=== PATIENT | female | born 1955 | race Caucasian/White ===

== ENCOUNTER → 2016-06-16 | Outpatient (CLI) | payer MEDICAID ==
[~2016-06-16] MED LIST: ACHD5005 PO; ACYC800T57 PO; AMOX500C2 PO; ANTI15DR4 LEFT EAR; ASP325T PO; ASP81TEC PO; ASPI-86 PO; ATEN50TA PO; ATOR40TA70 PO; BUTE12CR TP; CHOL500049 PO; CLOB15CR2 TOP; CLOP75TA28 PO; CLOT15CR4 TP; CLPD75T PO; CYAN25005 SL; CYAN50TA3 PO; CYCL10TA9 PO; DICY20TA57 PO; DIPH1TAB45 PO; FAMO-119 PO; FAMO20TA5 PO; FENO134C PO; FENO135C PO; FENO145T2 PO; HCT25T; HCT25T PO; HYDR12.570 PO; HYDR1TAB PO; HYDR25TA4 PO; ISM30TCR PO; ISOS60TA3 PO; LD5PT TOP; LEVO500T69 PO; LEVO75TA58 PO; LISI10TA2 PO; LISI20TA PO; LISI40TA PO; LVT.05T; MECL-106 PO; MECL-124 PO; METF-141 PO; METH4TAB PO; METO-333 PO; METO25TA PO; MOME15CR17 TP; MTF500T PO; NAPR-243 PO; NITR-65 PO; OMEG1CAP51 PO; ONDA-42 SL; ONDAN4ODT PO; OXYC-12 PO; PERM60CR4 TP; POTA10CA43 PO; POTA10TA14 PO; PRAS10TA6 PO; PRD20T PO; PRED10TA PO; PRED20TA PO; PREG75CA PO; PRM25T PO; ROSU10TA12 PO; ROSU20TA14 PO; ROSU20TA28 PO; SULF-222 PO; SULF1TAB38 PO; TR1C15 TOP; TRAM-21 PO; TRAM50TA2 PO; TRM50T PO; blue goo TOP
--- OUTSIDE RECORDS SUMMARY | 2016-06-16 12:10 | XMS REPORT | Continuity of Care Document ---
Author Author [facility] Organization [facility] Address Unknown Phone Unavailable Care Team Providers Care Dispute Resolution Analyst Name Role Phone DANIELLA GONZALEZ DO PCP Insurance Providers Payer Name Policy Number Subscriber Name Relationship [facility] [id number] Pricilla Barth 16 Self / Same As Patient Advance Directives Directive Response Recorded Date/Time Advance Directives No 03/07/16 6:56pm Health Care Power of Buckle Coverer No 03/07/16 6:56pm Organ Donor No 03/07/16 6:56pm Resuscitation Status Full Code 03/07/16 6:56pm Chief Complaint and Reason for Visit Chief Complaint General Problems/Pain Reason for Visit Dizziness Dermatitis Problems Active Problems Medical Problem Onset Date Status Acute exacerbation of chronic low back pain Unknown Acute Acute exacerbation of chronic low back pain Unknown Acute Acute gastroenteritis Unknown Acute Acute renal insufficiency Unknown Acute Allergic drug reaction Unknown Acute Contusion of foot Unknown Acute Contusion of right foot including toes Unknown Acute Contusion of right hand Unknown Acute Dermatitis Unknown Acute Diarrhea Unknown Acute Dizziness Unknown Acute Dizziness Unknown Acute Eczema Unknown Acute Fall on same level from slipping, tripping or stumbling Unknown Acute Heart murmur Unknown Acute Knee contusion Unknown Acute Laceration of finger Unknown Acute Musculoskeletal pain Unknown Acute Nausea and vomiting Unknown Acute Nausea and vomiting Unknown Acute Post herpetic neuralgia Unknown Acute Post herpetic neuralgia Unknown Acute Rash Unknown Acute Shingles Unknown Acute Symptomatic sinus bradycardia Unknown Acute Symptomatic sinus bradycardia Unknown Acute Symptomatic sinus bradycardia Unknown Acute Thyroid dysfunction Unknown Acute Tinea corporis Unknown Acute Urinary tract infection Unknown Acute Vertigo Unknown Acute Volume depletion Unknown Acute Medications Current Home Medications Medication Dose Units Route Directions Days/Qty Instructions Start Date Levothyroxine Sodium 75 Mcg 75 Mcg Oral Daily 06/10/10 Potassium Chloride 10 Meq 10 Meq Oral Daily 09/09/10 Hydrochlorothiazide 25 Mg 12.5 Mg Oral Daily TAKES 1/2 (25MG) TABLET DAILY 05/19/12 Metformin Hcl (Glucophage) 500 Mg 500 Mg Oral Daily 03/09/13 Isosorbide Mononitrate 60 Mg 60 Mg Oral Daily 03/09/13 [place]-3 Fatty Acids/Fish Oil 1 Each 1,000 Mg Oral Twice A Day Lisinopril 40 Mg 10 Mg Oral Daily 09/09/13 Clopidogrel Bisulfate 75 Mg 75 Mg Oral Daily 30 Days 09/10/13 Aspirin 325 Mg 325 Mg Oral Daily 12/02/13 Metoprolol Succinate 25 Mg 25 Mg Oral Daily 04/16/14 Cyanocobalamin 2,500 Mcg 2,500 Mcg Sublingual Daily 08/15/14 Fenofibrate,Micronized 134 Mg 134 Mg Oral Bedtime 11/19/15 Atorvastatin Calcium 40 Mg 40 Mg Oral Daily 11/19/15 Methylprednisolone 4 Mg 4 Mg Oral As Directed 1 02/04/16 Meclizine Hcl 25 Mg 25 Mg Oral Three Times A Day as needed for Dizziness 20 03/07/16 Clotrimazole/Betamethasone Dip 15 Gm 15 Gm Topical Twice A Day 1 03/07 Past Home Medications Medication Directions Ordered Status Atenolol 50 Mg Tablet, 50 Mg Oral Daily 12/25/08 Discontinued Trimethoprim/Sulfamethoxazole 1 Ea Tablet, 1 Ea Oral Twice A Day 12/25/08 Discontinued Tramadol Hcl 50 Mg Tablet, 1 Tab Oral Four Times Daily 12/25/08 Discontinued Triamcinolone Acetonide (Kenalog 0.1% Cream) 15 Gm Cr, 0 Topically Twice A Day 05/05/09 Discontinued Hydrochlorothiazide 25 Mg Tab, 09/12/09 Discontinued Lisinopril 20 Mg Tablet, 20 Mg Oral Daily 09/12/09 Discontinued Fenofibric Acid (Choline) 135 Mg Capsule.dr, 135 Mg Oral Bedtime 09/12/09 Discontinued Levothyroxine Sodium (Levothroid) 50 Mcg Tablet, 09/12/09 Discontinued Rosuvastatin Calcium 10 Mg Tablet, 20 Mg Oral Bedtime 09/12/09 Discontinued Hydrochlorothiazide 12.5 Mg Cap, 12.5 Mg Oral Daily 06/10/10 Discontinued Metformin Hcl 500 Mg Tab.sr.24h, 500 Mg Oral Daily 06/10/10 Discontinued Isosorbide Mononitrate 30 Mg Tab, 60 Mg Oral Daily@0630 07/10/10 Discontinued Prasugrel Hydrochloride 10 Mg Tablet, 10 Mg Oral Daily 07/11/10 Discontinued Aspirin 81 Mg Tab.chew, 81 Mg Oral Daily 09/09/10 Discontinued Acetaminophen/Hydrocodone Bitart 1 Each Tablet, 1 - 2 Each Oral Q4hr Prn 10/04 Discontinued Benzocaine/Antipyrine/Glycerin (Auralgan Ear Drops) 1 Drop Drops, 1 - 2 Drops Left Ear Four Times Daily 01/20/12 Discontinued Amoxicillin 500 Mg Capsule, 1 Each Oral Three Times A Day 01/20/12 Discontinued Cyclobenzaprine Hcl (Flexeril) 10 Mg Tablet, 1 Each Oral Q8hr Prn 02/06/12 Discontinued Naproxen 500 Mg Tablet, 1 Each Oral Three Times A Day And Prn 02/06/12 Discontinued Acetaminophen/Hydrocodone Bitart 1 Each Tablet, 1 - 2 Each Oral Q4hr Prn 30/04 Discontinued Methylprednisolone 4 Mg/Dose-Pack Tab.ds.pk, 1 Packet Oral As Directed Discontinued Aspirin 81 Mg Tabec, 81 Mg Oral Daily 05/19/12 Discontinued Prednisone 20 Mg Tab, 40 Mg Oral Daily 10/04/12 Discontinued Tramadol Hcl 50 Mg Tablet, 50 Mg Oral Every 6 Hours 10/04/12 Discontinued Naproxen 500 Mg Tablet, 1 Each Oral Three Times A Day And Prn 12/18/12 Discontinued Tramadol Hcl 50 Mg Tab, 50 Mg Oral Q4-6HOURS as needed 12/18/12 Discontinued Meclizine Hcl 25 Mg Tab, 1 - 2 Tab Oral Q 4-6 Hours as needed 02/22/13 Discontinued Nitrofurantoin Macrocrystals 100 Mg Capsule, 1 Each Oral Twice A Day Discontinued Rosuvastatin Calcium 20 Mg Tablet, 20 Mg Oral Bedtime 03/09/13 Discontinued Aspirin 325 Mg Tab, 325 Mg Oral Daily@0900 04/02/13 Discontinued Oxycodone Hcl/Acetaminophen 1 Each Tablet, 1-2 Each Oral Q4-6HRS as needed for Pain 04/02/13 Discontinued Aspirin 325 Mg Tab, 325 Mg Oral Daily 09/09/13 Discontinued Aspirin 81 Mg Tabec, 81 Mg Oral Daily 09/10/13 Discontinued Levofloxacin 500 Mg Tab, 1 Each Oral Daily 10/29/13 Discontinued Atenolol 50 Mg Tablet, 50 Mg Oral Daily 11/15/13 Discontinued Ondansetron Hcl 4 Mg Tab, 4 Mg Sublingual Every 4HRS 11/15/13 Discontinued Trimethoprim/Sulfamethoxazole 1 Ea Tablet, 1 Ea Oral Twice A Day 11/15/13 Discontinued Promethazine Hcl 25 Mg Tab, 25 Mg Oral 30 Min Before Meals 12/02/13 Discontinued Prednisone 10 Mg Tablet, 30 Mg Oral Daily 08/15/14 Discontinued Acyclovir 800 Mg Tablet, 1 Ea Oral Four Times Daily 08/15/14 Discontinued Cyclobenzaprine Hcl (Flexeril) 10 Mg Tablet, 1 Each Oral Twice A Day as needed for Pain 08/27/14 Discontinued Lidocaine 1 Ea Patch, 1 Each Topically Daily 08/27/14 Discontinued Prednisone 20 Mg Tablet, 40 Mg Oral Daily 09/08/14 Discontinued Famotidine (Pepcid) 20 Mg Tablet, 1 Each Oral Twice A Day 09/08/14 Discontinued Methylprednisolone 4 Mg/Dose-Pack Tab.ds.pk, 1 Pkt Oral As Directed 09/11/14 Discontinued Pregabalin 75 Mg Capsule, 75 Mg Oral As Directed 10/06/14 Discontinued Lidocaine 1 Ea Patch, 1 Each Topically Daily 10/06/14 Discontinued Tramadol Hcl 50 Mg Tablet, 50 Mg Oral Every 4HRS 10/06/14 Discontinued Clotrimazole/Betamethasone Dip 15 Gm Cream..g., 15 Gm Topical As Directed 02/24 Discontinued Tramadol Hcl 50 Mg Tablet, 50 Mg Oral Three Times A Day 11/19/15 Discontinued Butenafine Hcl 12 Gm Cream..g., 12 Gm Topical As Directed 11/19/15 Discontinued [Blue Goo] , 1 Gm Topically As Directed as needed for Rash 11/19/15 Discontinued Mometasone Furoate 15 Gm Cream..g., 0 Topical Three Times A Day 02/04/16 Discontinued Social History Social History Problem Response Recorded Date/Time Alcohol Use Denies Use 11/19/2015 2:42pm Recreational Drug Use No 11/19/2015 2:42pm Recent Foreign Travel No 01/08/2014 9:42am Recent Infectious Disease Exposure No 01/08/2014 9:42am Hospitalization with Isolation Denies 01/08/2014 9:42am Sexually Transmitted Disease No 03/07/2016 6:56pm HIV/AIDS No 03/07/2016 6:56pm Smoking Status Never a Smoker 03/07/2016 6:56pm Do you dip or chew tobacco? No 11/19/2015 2:42pm Recent Hopitalizations No 03/07/2016 6:56pm Sexually Transmitted Disease No 03/07/2016 6:56pm Hospitalization with Isolation Denies 01/08/2014 9:42am Query Response Start Date Stop Date Smoking Status Never a Smoker Hospital Discharge Instructions No hospital discharge instructions. Plan of Care Discharge Date 03/07/16 7:52pm Disposition 01 HOME, SELF-CARE Condition at Discharge Stable Instructions/Education Provided Contact Dermatitis (ED) Atopic Dermatitis (ED) Prescriptions See Medication Section Referrals DANIELLA GONZALEZ DO - Primary Care Physician Additional Instructions/Education Use a thin layer of Lotrisone cream on your rash twice daily. Use meclizine as prescribed for dizziness. Follow-up with Dr. Gonzalez within the next week and return to care if symptoms worsen. All discharge instructions reviewed with patient and/or family. Voiced understanding. Functional Status No functional status results. Allergies, Adverse Reactions, Alerts Allergen Type Severity Reaction Status Last Updated NKANo Known Allergies Allergy Mild Active 12/25/08 Immunizations No immunization records. Vital Signs Acute Vital Signs Vital Response Date/Time Temperature (Fahrenheit) 97.8 degrees F (97.6 - 99.5) 03/07/2016 6:52pm Temperature (Calculated Celsius) 36.48096 degrees C (36.4 - 37.5) 03/07/2016 6:52pm Temperature Source Temporal 03/07/2016 6:52pm Pulse Rate (adult) 70 bpm (60 - 90) 03/07/2016 6:52pm Respiratory Rate 18 bpm (12 - 24) 03/07/2016 6:52pm O2 Sat by Pulse Oximetry 96 % (88 - 100) 03/07/2016 6:52pm Blood Pressure 137/66 mm Hg 03/07/2016 6:52pm Blood Pressure Mean 89 mm Hg 03/07/2016 6:52pm Pain Numeric Pain Scale 0-No Pain 03/07/2016 6:52pm Height (Feet) 5 feet 03/07/2016 6:52pm Height (Inches) 6 inches 03/07/2016 6:52pm Height (Calculated Centimeters) 167.496505 cm 03/07/2016 6:52pm Weight (Pounds) 198 pounds 03/07/2016 6:52pm Weight (Calculated Kilograms) 89.749985 kilograms 03/07/2016 6:52pm Capillary Refill Capillary Refill Less Than 3 Seconds 03/07/2016 6:52pm Height 5 ft 6 in Weight 198 lb Body Mass Index 32.0 kg/m^2 Results No known relevant diagnostic tests, laboratory data and/or discharge summary. Procedures No known history of procedures. Encounters Encounter Location Arrival/Admit Date Discharge/Depart Date Attending Provider Departed Emergency Room [facility] 03/07/16 6:07pm 03/07 7:52pm BING LAM MD Registered Clinic [facility] 02/08/16 11:05am KATHRIN CID Recent Diagnosis
[2016-06-16 14:34] LABS: ALBUMIN 4.3 G/DL (3.2-4.5); BILIRUBIN,DIRECT 0.1 MG/DL (0.0-0.3); BILIRUBIN,INDIRECT 0.3 MG/DL; BILIRUBIN,TOTAL 0.4 MG/DL (0.1-1.0); TOTAL PROTEIN 6.9 G/DL (6.4-8.2)
== END ==
LOC: LAB 12:06
PROVIDERS: ATTEND Physician Assistant
DX: E78.2 Mixed hyperlipidemia (principal)
CPT/HCPCS: 80061; 80076

== ENCOUNTER 2016-06-27 08:10 | Day surgery (SDC) | payer MEDICAID ==
[~2016-06-27] VITALS: Ht 167.6 cm; Wt 89.8 kg
[2016-06-27] VITALS (12 sets, daily range): BP systolic 136–180; BP diastolic 61–78
[~2016-06-27 08:10] MED LIST changes: -CHOL500049 PO; -CLOB15CR2 TOP; -CLOP75TA28 PO; -CYAN50TA3 PO; -FENO145T2 PO; -HYDR25TA4 PO; -LISI10TA2 PO; -METO-333 PO; -POTA10TA14 PO; -ROSU20TA28 PO
--- OUTSIDE RECORDS SUMMARY | 2016-06-27 08:15 | XMS REPORT | Continuity of Care Document ---
Author Author [facility] Organization [facility] Address Unknown Phone Unavailable Care Team Providers Care Director Business Development Name Role Phone DANIELLA GONZALEZ DO PCP Insurance Providers Payer Name Policy Number [facility] [id number] Pricilla Barth 18 Self / Same As Patient Advance Directives Directive Response Recorded Date/Time Advance Directives No 03/07/16 6:56pm Health Care Power of First Sampler No 03/07/16 6:56pm Organ Donor No 03/07/16 [...] 60 Mg 60 Mg Oral Daily 03/09/13 [place]-3 Fatty Acids/Fish Oil 1 Each 1,000 Mg [...] - 99.5) 03/07/2016 6:52pm Temperature (Calculated Celsius) 36.28654 degrees C (36.4 - 37.5) 03/07/2016 6:52pm [...] 6 inches 03/07/2016 6:52pm Height (Calculated Centimeters) 167.927824 cm 03/07/2016 6:52pm Weight (Pounds) 198 pounds 03/07/2016 6:52pm Weight (Calculated Kilograms) 89.799358 kilograms 03/07/2016 6:52pm Capillary Refill Capillary Refill Less Than 3 Seconds 03/07/2016 6:52pm Height 5 ft 6 in Weight 198 lb Body Mass Index 32.0 kg/m^2 Results No known relevant diagnostic tests, laboratory data and/or discharge summary. Procedures No known history of procedures. Encounters Encounter Location Arrival/Admit Date Discharge/Depart Date Attending Provider Departed Emergency Room [facility] 03/07/16 6:07pm 03/07 7:52pm BING LAM MD Registered Clinic [facility] 02/08/16 11:05am KATHRIN CID Recent Diagnosis
--- OUTSIDE RECORDS SUMMARY | 2016-06-27 08:15 | XMS REPORT | Continuity of Care Document ---
Author Author [facility] Organization [facility] Address Unknown Phone Unavailable Care Team Providers Care Sustainability Engineer Name Role Phone DANIELLA GONZALEZ DO PCP Insurance Providers Payer Name Policy Number [facility]scriber [facility] [id number] Pricilla Barth 18 Self / Same As Patient Advance Directives Directive Response Recorded Date/Time Advance Directives No 03/07/16 6:56pm Health Care Power of Day Care Teacher No 03/07/16 6:56pm Organ Donor No 03/07/16 [...] 60 Mg 60 Mg Oral Daily 03/09/13 [place]-3 Fatty Acids/Fish Oil 1 Each 1,000 Mg [...] - 99.5) 03/07/2016 6:52pm Temperature (Calculated Celsius) 36.36782 degrees C (36.4 - 37.5) 03/07/2016 6:52pm [...] 6 inches 03/07/2016 6:52pm Height (Calculated Centimeters) 167.308740 cm 03/07/2016 6:52pm Weight (Pounds) 198 pounds 03/07/2016 6:52pm Weight (Calculated Kilograms) 89.233100 kilograms 03/07/2016 6:52pm Capillary Refill Capillary Refill Less Than 3 Seconds 03/07/2016 6:52pm Height 5 ft 6 in Weight 198 lb Body Mass Index 32.0 kg/m^2 Results No known relevant diagnostic tests, laboratory data and/or discharge summary. Procedures No known history of procedures. Encounters Encounter Location Arrival/Admit Date Discharge/Depart Date Attending Provider Departed Emergency Room [facility] 03/07/16 6:07pm 03/07 7:52pm BING LAM MD Registered Clinic [facility] 02/08/16 11:05am KATHRIN CID Recent Diagnosis
[2016-06-27] MEDS ORDERED: LIDOCAINE 1% INJ 20 ML (XYLOCAINE) VIAL ONE (08:22)
[2016-06-27] MEDS ORDERED: NS IV 1000 ML 1,000 ML ONE ×2 (08:22→10:40)
[2016-06-27] MEDS ORDERED: HEParin (CATH LAB) 2,000 ML IV ONE (08:23)
[2016-06-27] MEDS ORDERED: NS IV 1000 ML 1,000 ML IV SCH ×2 (09:00→13:10)
[2016-06-27 09:08] LABS: MEAN PLATELET VOLUME 10.7 FL (7.4-10.4); RED BLOOD COUNT 4.7 10^6/uL (4.35-5.85); RED CELL DISTRIBUTION WIDTH 15.7 % (10.0-14.5); WHITE BLOOD COUNT 7.6 10^3/uL (4.3-11.0)
[2016-06-27 09:18] LABS: INR 0.9 (0.8-1.4); PROTHROMBIN TIME PATIENT 11.9 SEC (12.2-14.7)
--- NOTE | 2016-06-27 09:23 | Diagnostic Imaging Report ---
INDICATION: Shortness of breath Portable chest 9:04 AM Heart size and pulmonary vascularity are normal. Lungs are clear. There are no effusions or pneumothoraces. IMPRESSION: Negative chest Dictated by: Dictated on workstation # [id number]
[2016-06-27 09:26] LABS: ALANINE AMINOTRANSFERASE 13 U/L (0-55); ALBUMIN 4.3 G/DL (3.2-4.5); ANION GAP 8 MMOL/L (5-14); ASPARTATE AMINO TRANSFERASE 13 U/L (5-34); BILIRUBIN,TOTAL 0.5 MG/DL (0.1-1.0); BLOOD UREA NITROGEN 28 MG/DL (7-18); BUN/CREATININE RATIO 33; CALCIUM 9.8 MG/DL (8.5-10.1); CARBON DIOXIDE 26 MMOL/L (21-32); CHLORIDE 109 MMOL/L (98-107); CREATININE SERUM 0.86 MG/DL (0.60-1.30); GFR ESTIMATED > 60; GLUCOSE 110 MG/DL (70-105); SODIUM 143 MMOL/L (135-145); TOTAL PROTEIN 6.9 G/DL (6.4-8.2)
[2016-06-27] MEDS ORDERED: CHOL500049 PO (10:07)
[2016-06-27] MEDS ORDERED: LISI10TA2 PO (10:07)
[2016-06-27] MEDS ORDERED: HYDR25TA4 PO (10:07)
[2016-06-27] MEDS ORDERED: POTA10TA14 PO (10:07)
[2016-06-27] MEDS ORDERED: ROSU20TA28 PO (10:07)
[2016-06-27] MEDS ORDERED: CYAN50TA3 PO (10:07)
[2016-06-27] MEDS ORDERED: CLOB15CR2 TOP (10:07)
[2016-06-27] MEDS ORDERED: FENO145T2 PO (10:07)
[2016-06-27] MEDS ORDERED: CLOP75TA28 PO (10:07)
[2016-06-27] MEDS ORDERED: METO-333 PO (10:07)
[2016-06-27] MEDS ORDERED: fentaNYL INJECTION 100 MCG/2 ML AMP ONE (11:46)
[2016-06-27] MEDS ORDERED: MIDAZOLAM 5 MG/5 ML (VERSED) VIAL ONE (11:46)
--- NOTE | 2016-06-27 13:10 | Cardiac Procedure Note-CS/ASA ---
Pre-Procedure Note Pre-Op Procedure Note H&P Reviewed The H&P was reviewed, patient examined and no changes noted. Date H&P Reviewed: Jun 27, 2016 Time H&P Reviewed: 13:10 Conscious Sedation Pre-Proced Time Reviewed: 13:10 ASA Class: 3 Airway Mallampati Classification: ([place] appropriate class) I. II. III, IV Lungs Heart ASA score ASA 1: a normal healthy patient ASA 2: a patient with a mild systemic disease (mid diabetes, controlled hypertension, obesity x ASA 3: a patient with a severe systemic disease that limits activity (angina , COPD, prior Myocardial infarction) ASA 4: a patient with an incapacitating disease that is a constant threat to life (CHF, renal failure) ASA 5: a moribund patient not expected to survive 24 hrs. (ruptured aneurysm) ASA 6: a declared brain patient whose organs are being harvested. For emergent operations, add the letter E after the classification Grade 3 Sedation Plan: Analgesia, Amnesia, Plan communicated to team members, Discussed options with patient/fam, Discussed risks with patient/fam Note The patient is an appropriate candidate to undergo the planned procedure, sedation, and anesthesia. The patient immediately re-assessed prior to indication. BOBBI LEWIS MD Jun 27, 2016 13:10
--- NOTE | 2016-06-27 13:12 | Discharge Inst-Post CATH ---
Discharge Inst-CATH Post Cardiac Cath D/C Inst Follow Up/Plan Appointment with Dr Strange's office in 2-4 weeks CARDIAC CATH DISCHARGE INSTRUCTIONS *Hold Metformin for 48 hours post heart cath. ACTIVITY * Go Home directly and rest. * Limit activity of the leg (or wrist if it was used) for 7 days including aerobics, swimming, jogging, bicycling, etc. * Restrict stair-climbing for 7 days if possible, if not, climb up with your non -cath leg, then bring together on the same step. * Avoid lifting, pushing, pulling or excessive movement of the affected extremity for 7 days. * Customary sexual activity may be resumed after 2 days-use caution not to use a position that strains or causes pain to the affected extremity. * No driving for 24 hours. * NO SMOKING. * Avoid straining for bowel movements for 7 days. * Gentle walking on level ground is allowed. * Returning to work will depend on the type of procedure and the results. Your doctor will discuss this with you. CALL YOUR DOCTOR FOR ANY OF THE FOLLOWING: *If bleeding from the puncture site occurs- Apply gentle pressure to site with clean cloth and call your doctor or EMS. * If a knot or lump forms under the skin, increases in size, or causes pain. * If bruising appears to be worsening or moving further down your leg instead of disappearing. * Temperature above 101 F. CARE OF YOUR GROIN INCISION; * Bruising or purple discoloration of the skin near the puncture site is common. * You may shower only, no bathtub bathing for 5 days. Be careful to avoid slipping as your leg may feel stiff. * If a closure device was used on your femoral artery, please see the attached guide regarding care of the device and your leg. * REMOVE the dressing from your groin the next day after your procedure in the shower. CARE OF YOUR WRIST INCISION; * Bruising or purple discoloration of the skin near the puncture site is common. * You may shower. * DO NOT submerge wrist. * Remove dressing in 24 hours. BOBBI STRANGE MD Jun 27, 2016 13:12
[2016-06-27] MEDS ORDERED: PATIENT MAY USE OWN MEDS, ALL PO SCH (13:15)
--- NOTE | 2016-06-29 08:07 | DISCHARGE SUMMARY ---
PROCEDURE PHYSICIAN: BOBBI LEWIS DATE OF PROCEDURE: 06/27/2016 REFERRING PHYSICIAN: Dr. Winter [place] Mrs. Sahu is a 60-year-old lady with history of coronary artery disease, hypertension, hyperlipidemia. She has been having recurrent chest pain. The patient had borderline stress test, but continued to be symptomatic. I decided to proceed with coronary angiogram, possible angioplasty. PROCEDURE NOTE: After explaining the procedure to the patient, all pros and cons were obtained. All questions were answered. The patient signed a consent, then she was placed on the cardiac catheterization laboratory. The right groin was prepped in a sterile fashion. Local anesthesia applied to right groin. 6-[place]ghan sheath was placed in the right femoral artery. Combination of right and left Mckinley catheter were used to access the right and left coronary system. Multiple views were obtained. Pigtail catheter advanced to the left ventricular cavity. Pressure was measured, pullback LV to aorta was done. The aortic arch angiogram was done. At the end of the procedure, sheath was removed. Mynx device deployed. Hemostasis achieved. FINDINGS: HEMODYNAMICS: LV pressure 148/15, end diastolic pressure of 15, aortic pressure 143/58, mean of 90. No significant gradient across the aortic valve. ANATOMY: 1. Left main coronary artery is bifurcating to left anterior descending and left circumflex artery with no obstructive disease. 2. Left anterior descending artery is moderate in size with mild irregularity. No significant obstructive disease. 3. Left circumflex artery is moderate in size. Stent is patent. Proximal circumflex artery has mild disease, nonobstructive disease. 4. Right coronary artery is moderate in size with no obstructive disease. 5. No left ventriculogram was done. Pressure was normal. 6. Aortic arch angiogram was done in the left anterior oblique position. The aortic arch is normal in size. No dissection or aneurysm. Origin of the carotid artery innominate artery and left subclavian artery appeared normal. CONCLUSION: 1. Patent stent in the circumflex artery with mild coronary artery disease distally, small vessel disease. 2. Normal aortic arch and great neck vessels. DISCUSSION AND RECOMMENDATION: Ms. Mcneals chest pain is probably noncardiac in nature. Medical therapy is recommended. FINAL DIAGNOSIS: 1. Coronary artery disease. 2. Chest pain, nonspecific etiology. 3. Hypertension. 4. Hyperlipidemia. Job ID: [id number] Dictated Date: 06/27/2016 13:18:27 Clinical Trial Coordinator Date: 06/29/2016 08:06:17/pamela
== END 2016-06-27 17:43 | disposition home or self-care (01) ==
LOC: CATH 08:10 → SURG 13:31 → CATH 17:43
PROVIDERS: ATTEND Internal Medicine Cardiovascular Disease
DX: R07.89 Other chest pain (principal); I25.10 Atherosclerotic heart disease of native coronary artery without angina pectoris; I10 Essential (primary) hypertension; E78.5 Hyperlipidemia, unspecified; E11.9 Type 2 diabetes mellitus without complications; I49.3 Ventricular premature depolarization; E66.9 Obesity, unspecified; E03.9 Hypothyroidism, unspecified; Z86.73 Personal history of transient ischemic attack (TIA), and cerebral infarction without residual deficits; Z87.891 Personal history of nicotine dependence; Z68.32 Body mass index [BMI] 32.0-32.9, adult; Z95.5 Presence of coronary angioplasty implant and graft; Z79.899 Other long term (current) drug therapy
CPT/HCPCS: 36221; 36415; 71010; 80053; 85027; 85610; 85730; 87081; 93458

== ENCOUNTER 2016-07-21 15:26 | Emergency (ER) | payer MEDICAID ==
[~2016-07-21] VITALS: Ht 167.6 cm; Wt 93.0 kg
[~2016-07-21 15:26] MED LIST changes: +CHOL500049 PO; +CLOB15CR2 TOP; +CLOP75TA28 PO; +CYAN50TA3 PO; +FENO145T2 PO; +HYDR25TA4 PO; +LISI10TA2 PO; +METO-333 PO; +POTA10TA14 PO; +ROSU20TA28 PO
--- OUTSIDE RECORDS SUMMARY | 2016-07-21 15:32 | XMS REPORT | Continuity of Care Document ---
Author Author [facility] Organization [facility] Address Unknown Phone Unavailable Care Team Providers Care Associate Justice Name Role Phone SALONI QUINN DO PCP Insurance Providers Payer Name Policy Number Subscriber Name Relationship [facility] [employer] [id number] Karla Barth 16 Self / Same As Patient Advance Directives Directive Response Recorded Date/Time Advance Directives No 06/27/16 8:55am Health Care Power of Director Of Head Start No 06/27/16 8:55am Organ Donor No 06/27/16 8:55am Resuscitation Status Full Code 06/27/16 8:55am Problems Active Problems Medical Problem Onset Date [...] 75 Mcg 75 Mcg Oral Daily 06/10/10 Hydrochlorothiazide 25 Mg 25 Mg Oral Every 48 Hours ALTERNATES EVERY OTHER DAY WITH 1/2 TABLET 05/19/12 Isosorbide Mononitrate 60 Mg 60 Mg Oral Daily 03/09/13 [place]-3 Fatty Acids/Fish Oil 1 Each 1,000 Mg Oral Twice A Day Aspirin 325 Mg 325 Mg Oral Daily 12/02/13 Potassium Chloride 10 Meq 10 Meq Oral Daily 06/27/16 Lisinopril 10 Mg 10 Mg Oral Daily 06/27/16 Cyanocobalamin (Vitamin B-12) 50 Mcg 50 Mcg Oral Daily 06/27/16 Fenofibrate Nanocrystallized 145 Mg 145 Mg Oral Bedtime 06/27/16 Clopidogrel Bisulfate 75 Mg 75 Mg Oral Daily 06/27/16 Rosuvastatin Calcium 20 Mg 20 Mg Oral Bedtime 06/27/16 Metoprolol Tartrate 25 Mg 12.5 Mg Oral Daily TAKES 1/2 (25MG) TABLET 06/27/16 Hydrochlorothiazide 25 Mg 12.5 Mg Oral Every 48 Hours TAKES 1/2 (25MG) TABLET - ALTERNATES EVERY OTHER DAY WITH 1 WHOLE TABLET 06/27/16 Cholecalciferol (Vitamin D3) 50,000 Unit 50,000 Unit Oral Every Saturday06/27/16 Clobetasol Propionate 15 Gm Topically Three Times A Day 06/27/16 Past Home Medications Medication Directions Ordered Status [...] 09/12/09 Discontinued Fenofibric Acid (Choline) 135 Mg Capsule.dr 135 Mg Oral Bedtime 09/12/09 Discontinued Levothyroxine [...] Tablet, 10 Mg Oral Daily 07/11/10 Discontinued Potassium Chloride 10 Meq Capsule.sa, 10 Meq Oral Daily 09/09/10 Discontinued Aspirin 81 Mg Tab.chew, 81 Mg [...] Tablet, 20 Mg Oral Bedtime 03/09/13 Discontinued Metformin Hcl (Glucophage) 500 Mg Tablet, 500 Mg Oral Daily 03/09/13 Discontinued Aspirin 325 Mg Tab, 325 Mg Oral Daily@0900 04/02/13 Discontinued Oxycodone Hcl/Acetaminophen 1 Each Tablet, 1-2 Each Oral Q4-6HRS as needed for Pain 04/02/13 Discontinued Lisinopril 40 Mg Tablet, 10 Mg Oral Daily 09/09/13 Discontinued Aspirin 325 Mg Tab, 325 Mg [...] Oral 30 Min Before Meals 12/02/13 Discontinued Metoprolol Succinate 25 Mg Tab.sr.24h, 25 Mg Oral Daily 04/16/14 Discontinued Cyanocobalamin 2,500 Mcg Tab.subl, 2500 Mcg Sublingual Daily 08/15/14 Discontinued Prednisone 10 Mg Tablet, 30 Mg [...] 15 Gm Topical As Directed 02/24 Discontinued Fenofibrate,Micronized 134 Mg Capsule, 134 Mg Oral Bedtime 11/19/15 Discontinued Atorvastatin Calcium 40 Mg Tablet, 40 Mg Oral Daily 11/19/15 Discontinued Tramadol Hcl 50 Mg Tablet, 50 Mg Oral Three Times A Day 11/19/15 Discontinued Butenafine Hcl 12 Gm Cream..g., 12 Gm Topical As Directed 11/19/15 Discontinued [Blue Goo] , 1 Gm Topically As Directed as needed for Rash 11/19/15 Discontinued Methylprednisolone 4 Mg Tab.ds.pk, 4 Mg Oral As Directed 02/04/16 Discontinued Mometasone Furoate 15 Gm Cream..g., 0 Topical Three Times A Day 02/04/16 Discontinued Meclizine Hcl 25 Mg Tablet, 25 Mg Oral Three Times A Day as needed for Dizziness 03/07/16 Discontinued Clotrimazole/Betamethasone Dip 15 Gm Cream..g., 15 Gm Topical Twice A Day Discontinued Clotrimazole/Betamethasone Dip 15 Gm Cream..g., 15 Gm Topical As Directed Discontinued Permethrin 60 Gm Cream..g., 60 Gm Topical As Directed 04/05/16 Discontinued Prednisone 20 Mg Tab, 40 Mg Oral Daily 05/02/16 Discontinued Famotidine 20 Mg Tablet, 20 Mg Oral Twice A Day 05/02/16 Discontinued Meclizine Hcl 25 Mg Tablet, 25 Mg Oral Every 6 Hours as needed for Vertigo Discontinued Social History Social History Problem Response Recorded Date/Time Alcohol Use Denies Use 11/19/2015 2:42pm Recreational Drug Use No 11/19/2015 2:42pm Recent Foreign Travel No 01/08/2014 9:42am Recent Infectious Disease Exposure No 01/08/2014 9:42am Hospitalization with Isolation Denies 01/08/2014 9:42am Sexually Transmitted Disease No 05/02/2016 3:25pm HIV/AIDS No 05/02/2016 3:25pm Smoking Status Former Smoker 06/27/2016 8:55am Do you dip or chew tobacco? No 11/19/2015 2:42pm Type Used Cigarettes 06/27/2016 6:04pm Recent Hopitalizations No 05/02/2016 3:25pm Sexually Transmitted Disease No 05/02/2016 3:25pm Hospitalization with Isolation Denies 01/08/2014 9:42am Query Response Start Date Stop Date Smoking Status Former Smoker Hospital Discharge Instructions Patient Instructions Physician Instructions Follow Up/Plan Appointment with Dr Strange's office in 2-4 weeks CARDIAC CATH DISCHARGE INSTRUCTIONS *Hold Metformin for 48 hours post heart cath. ACTIVITY * Go Home directly and rest. * Limit activity of the leg (or wrist if it was used) for 7 days including aerobics, swimming, jogging, bicycling, etc. * Restrict stair-climbing for 7 days if possible, if not, climb up with your non-cath leg, then bring together on the same step. * Avoid lifting, pushing, pulling or excessive movement of the affected extremity for 7 days. * Customary sexual activity may be resumed after 2 days-use caution not to use a position that strains or causes pain to the affected extremity. * No driving for 24 hours. * NO SMOKING. * Avoid straining for bowel movements for 7 days. * Gentle walking on level ground is allowed. * Returning to work will depend on the type of procedure and the results. Your doctor will discuss this with you. CALL YOUR DOCTOR FOR ANY OF THE FOLLOWING: *If bleeding from the puncture site occurs- Apply gentle pressure to site with clean cloth and call your doctor or EMS. * If a knot or lump forms under the skin, increases in size, or causes pain. * If bruising appears to be worsening or moving further down your leg instead of disappearing. * Temperature above 101 F. CARE OF YOUR GROIN INCISION; * Bruising or purple discoloration of the skin near the puncture site is common. * You may shower only, no bathtub bathing for 5 days. Be careful to avoid slipping as your leg may feel stiff. * If a closure device was used on your femoral artery, please see the attached guide regarding care of the device and your leg. * REMOVE the dressing from your groin the next day after your procedure in the shower. CARE OF YOUR WRIST INCISION; * Bruising or purple discoloration of the skin near the puncture site is common. * You may shower. * DO NOT submerge wrist. * Remove dressing in 24 hours. Plan of Care Discharge Date 06/27/16 5:43pm Instructions/Education Provided CARDIAC CATH DISCHARGE INSTRUC Prescriptions See Medication Section Functional Status Query Response Date Recorded Patient Orientation Person June 27, 2016 6:04pm Allergies, Adverse Reactions, Alerts Allergen Type Severity Reaction Status Last Updated NKANo Known Allergies Allergy Mild Active 12/25/08 Immunizations No immunization records. Vital Signs Acute Vital Signs Vital Response Date/Time Temperature (Fahrenheit) 98.3 degrees F (97.6 - 99.5) 06/27/2016 6:00pm Temperature (Calculated Celsius) 36.24989 degrees C (36.4 - 37.5) 06/27/2016 5:35pm Temperature Source Temporal 06/27/2016 6:00pm Pulse Rate (adult) 69 bpm (60 - 90) 06/27/2016 6:00pm Respiratory Rate 18 bpm (12 - 24) 06/27/2016 6:00pm O2 Sat by Pulse Oximetry 64 % (88 - 100) 06/27/2016 6:00pm Blood Pressure 163/64 mm Hg 06/27/2016 6:00pm Blood Pressure Mean 97 mm Hg 06/27/2016 5:35pm Blood Pressure / Blood Pressure Mean 97 mm Hg 06/27/2016 5:35pm Pain Numeric Pain Scale 0-No Pain 06/27/2016 6:00pm Height (Feet) 5 feet 06/27/2016 8:57am Height (Inches) 6.00 inches 06/27/2016 8:57am Height (Calculated Centimeters) 167.182949 cm 06/27/2016 8:57am Weight (Pounds) 198 pounds 06/27/2016 8:57am Weight (Ounces) 0.0 oz 06/27/2016 8:57am Weight (Calculated Grams) 54060.29 gm 06/27/2016 8:57am Weight (Calculated Kilograms) 89.670379 kilograms 06/27/2016 8:57am Calculated BMI 32.0 06/27/2016 8:57am Capillary Refill Capillary Refill Less Than 3 Seconds 06/27/2016 5:35pm Capillary Refill Capillary Refill Less Than 3 Seconds 06/27/2016 5:35pm Results Laboratory Results Test Name Result Units Flags Reference Collection Date/Time Result Date/ Time Comments Total Bilirubin 0.4 MG/DL 0.1-1.0 06/16/2016 12:15pm 06/16/2016 2:34pm Direct Bilirubin 0.1 MG/DL 0.0-0.3 06/16/2016 12:15pm 06/16/2016 2: 34pm Indirect Bilirubin 0.3 MG/DL 06/16/2016 12:15pm 06/16/2016 2:34pm Alkaline Phosphatase 48 U/L 40-136 06/16/2016 12:15pm 06/16/2016 2: 34pm Aspartate Amino Transf (AST/SGOT) 13 U/L 5-34 06/16/2016 12:15pm 2016 2:34pm Alanine Aminotransferase (ALT/SGPT) 13 U/L 0-55 06/16/2016 12:15pm 08/2016 2:34pm Total Protein 6.9 G/DL 6.4-8.2 06/16/2016 12:15pm 06/16/2016 2:34pm Albumin 4.3 G/DL 3.2-4.5 06/16/2016 12:15pm 06/16/2016 2:34pm Triglycerides Level 317 MG/DL H <150 06/16/2016 12:15pm 06/16/2016 2: 34pm Cholesterol Level 289 MG/DL H < 200 06/16/2016 12:15pm 06/16/2016 2:34pm HDL Cholesterol 43 MG/DL 40-60 06/16/2016 12:15pm 06/16/2016 2:34pm LDL Cholesterol Direct 194 MG/DL H 1-129 06/16/2016 12:15pm 06/16/2016 2: 34pm VLDL Cholesterol 63 MG/DL H 5-40 06/16/2016 12:15pm 06/16/2016 2:34pm Pending Laboratory Results Test Name Collection Date/Time Procedures No known history of procedures. Encounters Encounter Location Arrival/Admit Date Discharge/Depart Date Attending Provider Departed [facility] 06/27/16 8:10am 5:43pm BOBBI STRANGE MD Registered Clinic [facility] 06/16/16 12:06pm KATHRIN CID
[2016-07-21 15:54] VITALS: BP 147/60
[2016-07-21] MEDS ORDERED: PRD20T PO (20:03)
== END 2016-07-21 17:06 | disposition left against medical advice (07) ==
LOC: EDUNIT# 15:26 → ER 15:27
DX: M54.5 Low back pain (principal); Z53.21 Procedure and treatment not carried out due to patient leaving prior to being seen by health care provider
CPT/HCPCS: 99281

== ENCOUNTER 2016-07-21 18:12 | Emergency (ER) | payer MEDICAID ==
[~2016-07-21] VITALS: Ht 167.6 cm; Wt 93.0 kg
--- OUTSIDE RECORDS SUMMARY | 2016-07-21 18:19 | XMS REPORT | Continuity of Care Document ---
Author Author [facility] Organization [facility] Address Unknown Phone Unavailable Care Team Providers Care Virtual Reality Specialist Name Role Phone SALONI QUINN DO PCP Insurance Providers Payer Name Policy Number Subscriber Name Relationship [facility] [employer] [id number] Karla Barth 16 Self / Same As Patient Advance Directives Directive Response Recorded Date/Time Advance Directives No 06/27/16 8:55am Health Care Power of Flour Distributor No 06/27/16 8:55am Organ Donor No 06/27/16 [...] 60 Mg 60 Mg Oral Daily 03/09/13 [place]-3 Fatty Acids/Fish Oil 1 Each 1,000 Mg [...] - 99.5) 06/27/2016 6:00pm Temperature (Calculated Celsius) 36.91840 degrees C (36.4 - 37.5) 06/27/2016 5:35pm [...] 6.00 inches 06/27/2016 8:57am Height (Calculated Centimeters) 167.483362 cm 06/27/2016 8:57am Weight (Pounds) 198 pounds 06/27/2016 8:57am Weight (Ounces) 0.0 oz 06/27/2016 8:57am Weight (Calculated Grams) 11500.29 gm 06/27/2016 8:57am Weight (Calculated Kilograms) 89.122402 kilograms 06/27/2016 8:57am Calculated BMI 32.0 06/27/2016 [...] Attending Provider Departed [facility] 06/27/16 8:10am 5:43pm BOBBI STRANGE MD Registered Clinic [facility] 06/16/16 12:06pm KATHRIN CID
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
[2016-07-21] MEDS ORDERED: KETOROLAC 30 MG/ML VIAL IVP ONE (19:30)
[2016-07-21] MEDS ORDERED: meTOprolol 5 MG/5 ML (LOPRESSOR) VIAL IV ONE (19:30)
[2016-07-21 19:38] LABS: BASOPHILS # (AUTO) 0.1 10^3/uL (0.0-0.1); BASOPHILS % (AUTO) 0 % (0-10); EOSINOPHILS # (AUTO) 0.3 10^3/uL (0.0-0.3); EOSINOPHILS % (AUTO) 3 % (0-10); LYMPHOCYTES # (AUTO) 1.7 X 10^3 (1.0-4.0); LYMPHOCYTES % (AUTO) 13 % (12-44); MEAN CORPUSCULAR HEMOGLOBIN 28 PG (25-34); MEAN CORPUSCULAR HGB CONC 34 G/DL (32-36); MEAN CORPUSCULAR VOLUME 84 FL (80-99); MONOCYTES # (AUTO) 0.8 X 10^3 (0.0-1.0); MONOCYTES % (AUTO) 6 % (0-12); NEUTROPHILS # (AUTO) 10.1 X 10^3 (1.8-7.8); NEUTROPHILS % (AUTO) 78 % (42-75); PLATELET COUNT 220 10^3/uL (130-400); RED BLOOD COUNT 4.46 10^6/uL (4.35-5.85); RED CELL DISTRIBUTION WIDTH 15.6 % (10.0-14.5)
[2016-07-21 19:51] LABS: CALCIUM 9.9 MG/DL (8.5-10.1); CREATININE SERUM 1.09 MG/DL (0.60-1.30); POTASSIUM 3.8 MMOL/L (3.6-5.0)
--- NOTE | 2016-07-21 19:55 | Diagnostic Imaging Report ---
Indication: Left arm pain and numbness starting yesterday with additional right hand numbness. Comparison: 09/08/2013. Technique: Routine head CT was performed without contrast. Discussion: Patchy white matter hypoattenuation is nonspecific though not greater than expected for age related chronic small vessel ischemic disease. The ventricles and sulci are normal size and configuration for age. No acute intracranial hemorrhage, midline shift, hydrocephalus, or mass. The visualized orbits, paranasal sinuses, mastoid air cells, and calvarium are unremarkable. Impression: 1. Nonspecific white matter disease. No acute intracranial abnormality otherwise identified. Dictated by: Dictated on workstation # [id number]
--- NOTE | 2016-07-21 19:58 | Diagnostic Imaging Report ---
PROCEDURE: CT cervical spine without contrast. TECHNIQUE: Multiple contiguous axial images were obtained through the cervical spine without the use of intravenous contrast. Sagittal and coronal reformations were then performed. Indication: Left arm pain starting yesterday, additional bilateral hand numbness. Comparison: None. Discussion: Straightening of the normal cervical lordosis, likely due to positioning or muscle spasm. Moderate degenerative disc disease at the C5-C6 and C6-C7 levels. There is no obvious severe central canal or neural foraminal stenosis identified on this noncontrast exam. Soft tissues are unremarkable. No acute fracture or subluxation. Impression: 1. Moderate degenerative disc disease at the C5-C6 and C6-C7 levels. No acute osseous abnormality identified. Dictated by: Dictated on workstation # [id number]
[2016-07-21] MEDS ORDERED: PRD20T PO (20:03)
[2016-07-21 20:12] LABS: BILIRUBIN,URINE NEGATIVE (NEGATIVE); KETONES,URINE NEGATIVE (NEGATIVE); LEUKOCYTE ESTERASE ,URINE 1+ (NEGATIVE); NITRITE,URINE NEGATIVE (NEGATIVE); PH,URINE 6 (5-9); PROTEIN,URINE NEGATIVE (NEGATIVE); UROBILINOGEN,URINE NORMAL (NORMAL)
[2016-07-21 20:46] VITALS: BP 142/79
== END 2016-07-21 20:46 | disposition home or self-care (01) ==
LOC: EDUNIT# 18:12 → ER 18:14
DX: M54.5 Low back pain (principal); G89.29 Other chronic pain; M47.22 Other spondylosis with radiculopathy, cervical region; I25.10 Atherosclerotic heart disease of native coronary artery without angina pectoris; E11.9 Type 2 diabetes mellitus without complications; I10 Essential (primary) hypertension; F17.210 Nicotine dependence, cigarettes, uncomplicated; Z95.5 Presence of coronary angioplasty implant and graft
CPT/HCPCS: 36415; 70450; 72125; 80048; 81000; 85025; 96374; 96375

== ENCOUNTER → 2016-08-28 | Outpatient (CLI) | payer MEDICAID ==
--- NOTE | 2016-08-28 17:20 | Diagnostic Imaging Report ---
PROCEDURE: MR imaging cervical spine without contrast. TECHNIQUE: Multiplanar, multisequence MR imaging of the cervical spine was performed without contrast. INDICATION: Left arm pain. Numbness on the left. Some right hand numbness. FINDINGS: There is normal height and alignment of the cervical vertebral bodies. C2-C3, C3-C4 and C4-C5 levels show minimal degenerative changes with no disc herniation or central canal stenosis. No significant foraminal narrowing is seen at these levels. At C5-C6, there is a focal central disc protrusion with spondylosis. No significant central canal stenosis is seen. There is mild bilateral foraminal narrowing. Similar findings are seen at C6-C7. There is no mass or acute bony abnormality. There is no intrinsic abnormality of the cervical cord. IMPRESSION: There are degenerative changes present which is causing some foraminal narrowing at C5-C6 and C6-C7. Dictated by: Dictated on workstation # [id number]
== END ==
LOC: RAD 15:53
PROVIDERS: ATTEND Nurse Practitioner Family
DX: M47.22 Other spondylosis with radiculopathy, cervical region (principal)
CPT/HCPCS: 72141

== ENCOUNTER 2016-10-14 14:38 | Emergency (ER) | payer MEDICAID ==
[~2016-10-14] VITALS: Ht 167.6 cm; Wt 87.5 kg
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
[2016-10-14 15:26] LABS: BASOPHILS # (AUTO) 0.1 10^3/uL (0.0-0.1); BASOPHILS % (AUTO) 0 % (0-10); EOSINOPHILS # (AUTO) 0.4 10^3/uL (0.0-0.3); EOSINOPHILS % (AUTO) 3 % (0-10); LYMPHOCYTES # (AUTO) 1.7 X 10^3 (1.0-4.0); LYMPHOCYTES % (AUTO) 12 % (12-44); MEAN CORPUSCULAR HEMOGLOBIN 27 PG (25-34); MEAN CORPUSCULAR HGB CONC 34 G/DL (32-36); MEAN CORPUSCULAR VOLUME 81 FL (80-99); MEAN PLATELET VOLUME 11.1 FL (7.4-10.4); MONOCYTES # (AUTO) 0.9 X 10^3 (0.0-1.0); MONOCYTES % (AUTO) 6 % (0-12); NEUTROPHILS # (AUTO) 10.7 X 10^3 (1.8-7.8); NEUTROPHILS % (AUTO) 78 % (42-75); PLATELET COUNT 210 10^3/uL (130-400); RED BLOOD COUNT 4.71 10^6/uL (4.35-5.85); RED CELL DISTRIBUTION WIDTH 16.3 % (10.0-14.5); WHITE BLOOD COUNT 13.7 10^3/uL (4.3-11.0)
[2016-10-14 15:44] LABS: ALANINE AMINOTRANSFERASE 12 U/L (0-55); ALBUMIN 3.9 G/DL (3.2-4.5); ANION GAP 12 MMOL/L (5-14); ASPARTATE AMINO TRANSFERASE 15 U/L (5-34); BILIRUBIN,TOTAL 0.8 MG/DL (0.1-1.0); BLOOD UREA NITROGEN 15 MG/DL (7-18); BUN/CREATININE RATIO 17; CALCIUM 10.6 MG/DL (8.5-10.1); CARBON DIOXIDE 26 MMOL/L (21-32); CHLORIDE 102 MMOL/L (98-107); CREATININE SERUM 0.87 MG/DL (0.60-1.30); GFR ESTIMATED > 60; GLUCOSE 112 MG/DL (70-105); MAGNESIUM 1.5 MG/DL (1.8-2.4); POTASSIUM 3.4 MMOL/L (3.6-5.0); SODIUM 140 MMOL/L (135-145); TOTAL PROTEIN 7.1 G/DL (6.4-8.2)
[2016-10-14] MEDS ORDERED: MAGNESIUM OXIDE (MAG-OX)400 MG TAB PO ONE (16:00)
[2016-10-14] MEDS ORDERED: KCL 10 MEQ TAB (MICRO K) PO ONE (16:00)
[2016-10-14 16:12] VITALS: BP 132/68
== END 2016-10-14 16:11 | disposition home or self-care (01) ==
LOC: EDUNIT# 14:38 → ER 14:40
DX: R20.0 Anesthesia of skin (principal); E11.9 Type 2 diabetes mellitus without complications; E87.6 Hypokalemia; E83.52 Hypercalcemia; E83.42 Hypomagnesemia; I25.10 Atherosclerotic heart disease of native coronary artery without angina pectoris; E78.00 Pure hypercholesterolemia, unspecified; I10 Essential (primary) hypertension; E03.9 Hypothyroidism, unspecified; Z87.891 Personal history of nicotine dependence; Z79.82 Long term (current) use of aspirin; Z95.5 Presence of coronary angioplasty implant and graft; Z86.73 Personal history of transient ischemic attack (TIA), and cerebral infarction without residual deficits
CPT/HCPCS: 36415; 80053; 83735; 85025; 99283

== ENCOUNTER → 2016-10-30 | Outpatient (CLI) | payer MEDICAID ==
--- NOTE | 2016-10-30 11:33 | Diagnostic Imaging Report ---
PROCEDURE: US Carotid Duplex Bilateral. TECHNIQUE: Multiple real-time grayscale images were obtained over the carotid arteries in various projections bilaterally. Additional duplex Doppler and color Doppler images were also obtained. INDICATION: Dizziness. Left endarterectomy. FINDINGS: There is intimal plaque seen in the proximal internal carotid artery on both sides. Carotid doppler demonstrates patency of the common, internal and external carotid arteries bilaterally. The vertebral arteries demonstrate antegrade flow on both sides. Peak systolic velocities in the right ICA are 67, 107 and 68 cm/s and on the left side 96, 196 and 154 cm/s. ICA/CCA ratios are up to 1.3 on the right side and up to 2.7 on the left. IMPRESSION: There is a moderate increased velocity in the mid left internal carotid artery with estimated underlying stenosis in the range of 50-69%. Estimated underlying stenosis of the right internal carotid artery is less than 50%. Dictated by: Dictated on workstation # [id number]
== END ==
LOC: RAD 10:06
PROVIDERS: ATTEND Nurse Practitioner Family
DX: I65.22 Occlusion and stenosis of left carotid artery (principal)
CPT/HCPCS: 93880

== ENCOUNTER → 2017-03-11 | Outpatient (CLI) | payer MEDICAID ==
--- NOTE | 2017-03-12 14:16 | Diagnostic Imaging Report ---
Bilateral screening mammogram 2D views with tomosynthesis. The current study was also evaluated with a Computer Aided Detection (CAD) system. INDICATION: Screening. No current complaints stated on the questionnaire. COMPARISON: 01/19/2016. FINDINGS: The breasts are composed of scattered fibroglandular densities. There is a lateral upper left breast stable subcentimeter nodule with circumscribed margins suggestive of an intramammary lymph node. Medial left breast cafeteria monitor is seen. Allowing for technique and positional differences, no suspicious change is seen. IMPRESSION: No significant change. ACR BI-RADS Category 2: Benign findings. Result letter will be mailed to the patient. Note: At least 10% of breast cancer is not imaged by mammography. Dictated by: Dictated on workstation # [id number]
== END ==
LOC: RAD 13:55
PROVIDERS: ATTEND Nurse Practitioner Family
DX: Z12.31 Encounter for screening mammogram for malignant neoplasm of breast (principal)
CPT/HCPCS: 77067

== ENCOUNTER → 2017-04-18 | Outpatient (CLI) | payer MEDICAID ==
[2017-04-18 07:15] LABS: ALANINE AMINOTRANSFERASE 19 U/L (0-55); ALBUMIN 4.5 GM/DL (3.2-4.5); ANION GAP 11 MMOL/L (5-14); ASPARTATE AMINO TRANSFERASE 20 U/L (5-34); BILIRUBIN,TOTAL 0.6 MG/DL (0.1-1.0); BLOOD UREA NITROGEN 15 MG/DL (7-18); BUN/CREATININE RATIO 19; CALCIUM 10.6 MG/DL (8.5-10.1); CARBON DIOXIDE 26 MMOL/L (21-32); CHLORIDE 106 MMOL/L (98-107); CHOLESTEROL 249 MG/DL (< 200); DIRECT LDL 166 MG/DL (1-129); GFR ESTIMATED > 60; GLUCOSE 97 MG/DL (70-105); POTASSIUM 3.4 MMOL/L (3.6-5.0); SODIUM 143 MMOL/L (135-145); TOTAL PROTEIN 7.5 GM/DL (6.4-8.2); TRIGLYCERIDES 166 MG/DL (<150); VLDL CHOLESTEROL 33 MG/DL (5-40)
--- NOTE | 2017-04-18 12:28 | Diagnostic Imaging Report ---
PROCEDURE: US Carotid Duplex Bilateral. TECHNIQUE: Multiple real-time grayscale images were obtained over the carotid arteries in various projections bilaterally. Additional duplex Doppler and color Doppler images were also obtained. INDICATION: History of carotid artery stenosis status post endarterectomy. FINDINGS: There is mild irregularity of the proximal left internal carotid artery, in part probably related to the endarterectomy with no significant plaque and with patency of the left internal and common carotid arteries. The left external carotid artery is not seen. The right common, internal and external carotid arteries are patent. Antegrade flow in the vertebral arteries is seen on both sides. Peak systolic velocity in the ICA is 60, 85 and 99 cm/s from proximal to distal, and 86, 141 and 128 cm/s from proximal to distal on the left. ICA/CCA ratios are up to 1.3 on the right side and 1.8 on the left. IMPRESSION: Post endarterectomy change in the left proximal internal carotid. The left external carotid artery is not seen, presumably occluded. Estimated stenosis in the internal carotid arteries is in the range of 0-50% bilaterally. Dictated by: Dictated on workstation # [id number]
== END ==
LOC: RAD 06:44
PROVIDERS: ATTEND Nurse Practitioner Family
DX: I77.9 Disorder of arteries and arterioles, unspecified (principal); Z98.890 Other specified postprocedural states
CPT/HCPCS: 36415; 80053; 80061; 93880

== ENCOUNTER → 2017-04-18 | Outpatient (CLI) | payer MEDICAID | LOC: LAB 06:44 | PROVIDERS: ATTEND Internal Medicine Cardiovascular Disease | DX: I25.10 Atherosclerotic heart disease of native coronary artery without angina pectoris (principal); R07.89 Other chest pain; E78.2 Mixed hyperlipidemia; I10 Essential (primary) hypertension; R60.0 Localized edema ==

== ENCOUNTER 2017-07-25 23:33 | Emergency (ER) | payer MEDICAID ==
[~2017-07-25] VITALS: Ht 167.6 cm; Wt 81.2 kg
[~2017-07-25 23:33] MED LIST changes: -ROSU20TA28 PO; +ROSU20TA30 PO
[2017-07-26] MEDS ORDERED: GABA-488 PO (00:03)
[2017-07-26] MEDS ORDERED: CLOT15CR4 TP (00:03)
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
[2017-07-26 00:07] VITALS: BP 160/56
== END 2017-07-26 00:06 | disposition home or self-care (01) ==
LOC: EDUNIT# 23:33 → ER 23:36
DX: L30.9 Dermatitis, unspecified (principal); R20.2 Paresthesia of skin; E11.9 Type 2 diabetes mellitus without complications; E03.9 Hypothyroidism, unspecified; I25.10 Atherosclerotic heart disease of native coronary artery without angina pectoris; E78.00 Pure hypercholesterolemia, unspecified; I10 Essential (primary) hypertension; Z95.5 Presence of coronary angioplasty implant and graft; Z86.73 Personal history of transient ischemic attack (TIA), and cerebral infarction without residual deficits; Z90.89 Acquired absence of other organs; Z87.891 Personal history of nicotine dependence; Z79.52 Long term (current) use of systemic steroids; Z79.82 Long term (current) use of aspirin; Z87.19 Personal history of other diseases of the digestive system; Z86.79 Personal history of other diseases of the circulatory system
CPT/HCPCS: 99281

== ENCOUNTER → 2017-11-28 | Outpatient (CLI) | payer MEDICAID, OTHER ==
[~2017-11-28] MED LIST changes: +GABA-488 PO; -ROSU20TA30 PO; +ROSU20TA31 PO
--- NOTE | 2017-11-28 11:37 | Diagnostic Imaging Report ---
PATIENT HISTORY: 62-year-old postmenopausal female presents for bone density screening. TECHNIQUE: DEXA scan performed of the lumbar spine and bilateral hips. COMPARISON: None. FINDINGS: LUMBAR SPINE: The bone mineral density of the lumbar spine from L2-L4 measures 1.489 g/cm2, with a T score of 2.4 and Z score of 3.6. The total right hip bone mineral density measures 0.965 g/cm2, with a T score of -0.3 and a Z score of 0.5. The right femoral neck bone mineral density measures 1.023 g/cm2, with a T score of -0.1 and a Z score of 1.1. The total left hip bone mineral density measures 1.019 g/cm2, with a T score of 0.1 and a Z score of 1.0. The left femoral neck bone mineral density measures 0.956 g/cm2, with a T score of -0.6 and a Z score of 0.6. The mean bone mineral density of both hips measures 0.992 g/cm2, with a T score of -0.1 and a Z score of 0.8. IMPRESSION: Normal bone density. Dictated by: Dictated on workstation # [id number]
== END ==
LOC: RAD 09:10
PROVIDERS: ATTEND Nurse Practitioner Family
DX: Z13.820 Encounter for screening for osteoporosis (principal)
CPT/HCPCS: 77080

== ENCOUNTER → 2018-03-17 | Outpatient (CLI) | payer OTHER ==
--- NOTE | 2018-03-18 19:27 | Diagnostic Imaging Report ---
Indication: Routine screening. Comparison is made with prior mammograms from 03/11/2017 and 01/19/2016. 2-D and 3-D bilateral screening mammography was performed with CAD. Scattered fibroglandular densities are identified bilaterally. A cardiac monitoring device is identified in the medial left breast. There is an intraparenchymal lymph node upper outer left breast which appears stable. No new mass or malignant-appearing microcalcifications are seen. The axillae are unremarkable. Impression: BI-RADS category 2 No mammographic features suspicious for malignancy are identified. ACR BI-RADS Category 2: Benign findings. Result letter will be mailed to the patient. Note: At least 10% of breast cancer is not imaged by mammography. Dictated by: Dictated on workstation # [id number]
== END ==
LOC: RAD 14:31
PROVIDERS: ATTEND Nurse Practitioner Family
DX: Z12.31 Encounter for screening mammogram for malignant neoplasm of breast (principal)
CPT/HCPCS: 77067

== ENCOUNTER 2018-04-05 19:48 | Emergency (ER) | payer SELFPAY ==
[~2018-04-05] VITALS: Ht 167.6 cm; Wt 83.9 kg
--- OUTSIDE RECORDS SUMMARY | 2018-04-05 19:54 | XMS REPORT ---
Author Author [facility] Address [address] [place] [address] Care Team Providers Care Registered Private Duty Nurse Name Role Phone JASIEL KENDRICK Unavailable PROBLEMS Type Condition ICD9-CM Code MQJ57-BO Code Onset Dates Condition Status SNOMED Code Problem Acquired hypothyroidism E03.9 Active 175424776 Problem Type 2 diabetes mellitus with diabetic chronic kidney disease E11.22 Active 88907392 Problem Restless leg syndrome G25.81 Active 29143092 Problem Mixed incontinence N39.46 Active 697278827 Problem Hypercalcemia E83.52 Active 02230228 Problem Low back pain M54.5 Active 281737566 Problem Chronic kidney disease, stage 1 N18.1 Active 277682363 Problem Bilateral carotid artery disease I77.9 Active 126611436 Problem Osteoarthritis of spine with radiculopathy, cervical region M47.22 Active 771295968 Problem Coronary artery disease involving [place] coronary artery of [place] heart without angina pectoris I25.10 Active 6629331098674 Problem Essential hypertension I10 Active 74331563 Problem Renal insufficiency N28.9 Active 161579253 Problem Type 2 diabetes mellitus without complication, without long-term current use of insulin E11.9 Active 613924819 Problem Vitamin D deficiency E55.9 Active 22595046 Problem Mixed hyperlipidemia E78.2 Active 179578388 ALLERGIES No Information ENCOUNTERS Encounter Location Date Diagnosis [facility] [id number], [place] [address] Feb, Vertigo R42 [facility] [address], [place] [address] Feb, [facility] [address], [place] [address] 09 Feb, 2018 Low back pain M54.5 [facility] [id number] [place] [address] 16[address]- 1114 Feb, Essential hypertension I10 ; Mixed hyperlipidemia E78.2 ; Coronary artery disease involving [place] coronary artery of [place] heart without angina pectoris I25.10 ; Screening for breast cancer Z12.31 and Mixed incontinence N39.46 [address], [place] [address] Jan, [address] [id number] [place] [address] 80636- 7031 Jan, Coronary artery disease involving [place] coronary artery of [place] heart without angina pectoris I25.10 [place] [id number] [place] [address] 92830- 7649 04 Jan, 2018 Low back pain M54.5 and Coronary artery disease involving [place] coronary artery of [place] heart without angina pectoris I25.10 [place] [id number] [place] [address] 79755- 2420 Dec, Acquired hypothyroidism E03.9 and Vertigo R42 [place] [id number] [place] [address] 96716- 6523 Dec, Low back pain M54.5 and Dermatitis L30.9 [id number] [place] [address] 77424- 6278 Nov, Coronary artery disease involving [place] coronary artery of [place] heart without angina pectoris I25.10 [place] [id number] [place] [address] 02409- 2220 Nov, Acquired hypothyroidism E03.9 and Vertigo R42 [place] [id number] [place] [address] 87618- 9518 Nov, Encounter for well woman exam Z01.419 ; Screening for osteoporosis Z13.820 and Screening for colon cancer Z12.11 [place] [address] [place] [address] 94233- 5583 Oct, Coronary artery disease involving [place] coronary artery of [place] heart without angina pectoris I25.10 [place] [address], [place] [address] September, [facility] [id number] [place] [address] 31596- 5148 September, [facility] [id number] [place] [address] 57406- 5493 Aug, Type 2 diabetes mellitus without complication, without long- term current use of insulin E11.9 ; Essential hypertension I10 ; Acquired hypothyroidism E03.9 and Low back pain M54.5 [facility] [id number] [place] [address] 91049- 0861 Aug, [facility] [id number] [place] [address] 53410- 2324 Aug, [facility] [id number] [place] [address] 53034- 3547 Jul, [place] [id number] [place] [address] 90192- 6499 Jul, Coronary artery disease involving [place] coronary artery of [place] heart without angina pectoris I25.10 [facility] [id number] [place] [address] 92279- 4282 Jun, Low back pain M54.5 and Essential hypertension I10 [place] [id number] [place] [address] 10904- 5369 Jun, Head cold J00 [place] [address] [place] [address] 25638- 1514 May, [facility] [id number] [place] [address] 11115- 1775 Apr, Type 2 diabetes mellitus without complication, without long- term current use of insulin E11.9 [address] [id number] [place] [address] 55458- 1003 Apr, Type 2 diabetes mellitus without complication, without long- term current use of insulin E11.9 [place] [id number] [place] [address] 33442- 3261 Apr, Essential hypertension I10 [facility] [address], [place] [address] 1668 Mar, [facility] [address], [place] [address] 2757 Mar, [facility] [address], [place] [address] 8718 Mar, Osteoarthritis of spine with radiculopathy, cervical region M47.22 [facility] [address], [place] [address] 3029 Mar, [facility] [address] [place] [address] 33706- 5895 Feb, [address] [address], [place] [address] Feb, Screening breast examination Z12.31 ; Bilateral carotid artery disease I77.9 ; Low back pain M54.5 ; Osteoarthritis of spine with radiculopathy, cervical region M47.22 ; Renal insufficiency N28.9 ; Vitamin D deficiency E55.9 ; Restless leg syndrome G25.81 ; Acquired hypothyroidism E03.9 ; Coronary artery disease involving [place] coronary artery of [place] heart without angina pectoris I25.10 ; Vertigo R42 ; Essential hypertension I10 ; Type 2 diabetes mellitus with diabetic chronic kidney disease E11.22 and Encounter for immunization Z23 [address] [address], [place] [address] 8[address] Jan, [facility] [id number], [place] [address] 9933 Jan, Type 2 diabetes mellitus without complication, without long- term current use of insulin E11.9 ; Low back pain M54.5 ; Osteoarthritis of spine with radiculopathy, cervical region M47.22 ; Renal insufficiency N28.9 ; Vitamin D deficiency E55.9 ; Restless leg syndrome G25.81 ; Bilateral carotid artery disease I77.9 ; Acquired hypothyroidism E03.9 ; Coronary artery disease involving [place] coronary artery of [place] heart without angina pectoris I25.10 and Lipoma of back D17.1 [place] [address] [place] [address] 32607- 7587 Jan, Type 2 diabetes mellitus without complication, without long- term current use of insulin E11.9 [place] [address] [place] [address] 07782- 6530 Dec, Osteoarthritis of spine with radiculopathy, cervical region M47.22 [place] [id number] [place] [address] 53661- 6237 Nov, [place] [id number] [place] [address] 24655- 8150 Nov, Low back pain M54.5 and Osteoarthritis of spine with radiculopathy, cervical region M47.22 [place] [id number] [place] [address] 76352- 4798 Nov, Osteoarthritis of spine with radiculopathy, cervical region M47.22 ; Abnormal blood chemistry R79.9 ; Type 2 diabetes mellitus without complication, without long-term current use of insulin E11.9 ; Essential hypertension I10 ; Renal insufficiency N28.9 ; Vitamin D deficiency E55.9 ; Paresthesia of both hands R20.2 ; Low back pain M54.5 ; Restless leg syndrome G25.81 ; Bilateral carotid artery disease I77.9 ; Acquired hypothyroidism E03.9 ; Coronary artery disease involving [place] coronary artery of [place] heart without angina pectoris I25.10 ; Hypercalcemia E83.52 and Left foot pain M79.672 [address] [address], [place] [address]- 0499 Oct, [place] [id number] [place] [address] 09262- 5789 Oct, Osteoarthritis of spine with radiculopathy, cervical region M47.22 [place] [address] [place] [address] 21305- 1774 Oct, Abnormal blood chemistry R79.9 [facility] [address], [place] [address]- 2751 September, Osteoarthritis of spine with radiculopathy, cervical region M47.22 ; Essential hypertension I10 ; Renal insufficiency N28.9 ; Type 2 diabetes mellitus without complication, without long-term current use of insulin E11.9 ; Vitamin D deficiency E55.9 ; Paresthesia of both hands R20.2 ; Low back pain M54.5 ; Restless leg syndrome G25.81 and Dizziness R42 [facility] [address], [place] [address]- 0407 September, [facility] [id number] [place] [address] 57051- 5988 September, [facility] [id number] [place] [address] 38385- 9952 September, [facility] [id number] [place] [address] 72021- 5355 September, [facility] [id number] [place] [address] 68293- 3299 Aug, [facility] [id number] [place] [address] 69791- 1794 Aug, [facility] [address], [place] [address]- 4625 Aug, [facility] [address], [place] [address]- 7866 Aug, [facility] [address], [place] [address]- 6436 Aug, Osteoarthritis of spine with radiculopathy, cervical region M47.22 [facility] [address], [place] [address]- 4314 Aug, Essential hypertension I10 ; Renal insufficiency N28.9 ; Type 2 diabetes mellitus without complication, without long-term current use of insulin E11.9 ; Vitamin D deficiency E55.9 ; Paresthesia of both hands R20.2 ; Low back pain M54.5 ; Restless leg syndrome G25.81 ; Osteoarthritis of spine with radiculopathy, cervical region M47.22 and Dizziness R42 [address] [id number] [place] [address] 27400- 9140 Jul, [place] [id number] [place] [address] 55590- 7198 Jul, [place] [id number] [place] [address] 09304- 3510 Jul, Essential hypertension I10 ; Paresthesia of both hands R20.2 ; Upper respiratory tract infection, unspecified type J06.9 and Low back pain M54.5 [address] [id number] [place] [address] 49782- 8800 Jul, [place] [id number] [place] [address] 62665- 2236 Jul, [place] [id number] [place] [address] 79413- 1721 Jul, Renal insufficiency N28.9 ; Vitamin D deficiency E55.9 ; Type 2 diabetes mellitus without complication, without long-term current use of insulin E11.9 ; Restless leg syndrome G25.81 ; Type 2 diabetes mellitus with diabetic chronic kidney disease E11.22 and Chronic kidney disease, stage 1 N18.1 [address], [place] [address]- 5997 Jul, Renal insufficiency N28.9 [address], [place] [address]- 4001 Jun, [address] [place] [address] 00865- 9887 Jun, Renal insufficiency N28.9 ; Vitamin D deficiency E55.9 ; Type 2 diabetes mellitus without complication, without long-term current use of insulin E11.9 ; Restless leg syndrome G25.81 ; Type 2 diabetes mellitus with diabetic chronic kidney disease E11.22 and Chronic kidney disease, stage 1 N18.1 [facility] [id number], [place] [address]- 9712 Jun, [facility] [address], [place] [address]- 7859 May, [facility] [address], [place] [address]- 6580 May, [facility] [address], [place] [address]- 3774 May, [facility] [address], [place] [address]- 1514 May, [facility] [address], [place] [address]- 5018 May, [facility] [address], [place] [address]- 9025 Apr, Acquired hypothyroidism E03.9 ; Essential hypertension I10 ; Type 2 diabetes mellitus without complication, without long-term current use of insulin E11.9 and Mixed hyperlipidemia E78.2 [facility] [id number], [place] [address]- 4647 Apr, Type 2 diabetes mellitus without complication, without long- term current use of insulin E11.9 ; Coronary artery disease involving [place] coronary artery of [place] heart without angina pectoris I25.10 ; Essential hypertension I10 and Acquired hypothyroidism E03.9 [facility] [address], [place] [address]- 0153 Apr, Cellulitis of left lower extremity L03.116 [facility] [id number], [place] [address]- 0576 Apr, Essential hypertension I10 ; Mixed hyperlipidemia E78.2 ; Type 2 diabetes mellitus without complication, without long-term current use of insulin E11.9 ; Acquired hypothyroidism E03.9 ; Cellulitis of left lower extremity L03.116 and Coronary artery disease involving [place] coronary artery of [place] heart without angina pectoris I25.10 [facility] [address] [place] [address]- 9296 14 Apr, 2016 [facility] [address] [id number] [place] [address]9 Dec, Dermatitis L30.9 [facility] [address] [id number] [place] [address]- 2546 14 Aug, 2014 [facility] [address] [facility] [id number] [place] [address]- 2546 Aug, [facility] [address] [id number] [place] [address]- 2546 Jan, [facility] [address] [id number] [place] [address]- 2546 Jan, [facility] [address] [facility] [id number] [place] [address]- 2546 Jun, [facility] [id number] [place] [address]- 6606 May, [facility] [address] [facility] [id number] [place] [address]- 6226 May, [facility] [id number] [place] [address]- 1246 May, [facility] [id number] [place] [address]- 1536 Apr, [facility] [address] [facility] [id number] [place] [address]- 2546 Feb, [facility] [address] [id number] [place] [address]- 2546 Feb, [facility] [address] [facility] [id number] [place] [address]- 2546 Nov, [facility] [address] [facility] [id number] [place] [address]- 2546 Nov, [facility] [address] [facility] [id number] [place] [address]- 2056 Nov, [facility] [address] [facility] [id number] [address]- 3769 Nov, [facility] [address] [facility] [id number] [address]- 7405 Nov, [facility] [address] [facility] [id number] [address]- 1298 Nov, [facility] [address] [facility] [id number] [address]23 Nov, IMMUNIZATIONS No Known Immunizations SOCIAL HISTORY Never Assessed REASON FOR VISIT Medication refill request PLAN OF CARE VITAL SIGNS MEDICATIONS Medication Instructions Dosage Frequency Start Date End Date Duration Status Meclizine HCl 25 MG Orally 3 times a day 1 tablet as needed 8h Active RESULTS No Results PROCEDURES No Known procedures INSTRUCTIONS MEDICATIONS ADMINISTERED No Known Medications MEDICAL (GENERAL) HISTORY Type Description Date Medical History type II diabetes Medical History Hypothyroidism Medical History hypertension Medical History heart disease Medical History Hyperlipidemia Medical History CAD Medical History Sent circumflex Artery Alie Medical History Paresthesia of both hands Medical History Vertigo Surgical History cholecystectomy Surgical History hernia repair Surgical History carotid endarterectomy Surgical History 2 stents placed-cardiac Surgical History cataract surgery Hospitalization History black out spells Hospitalization History Surgery(s) only
--- OUTSIDE RECORDS SUMMARY | 2018-04-05 19:54 | XMS REPORT | Clinical Summary ---
Author Author [facility] Organization [facility] Address Unknown Phone Unavailable Care Team Providers Care Engineering Operations Leader Name Role Phone Eda Seals RECRUITER SPECIALIST PCP Source Comments Some departments are not documenting in the electronic medical record. If you do not see the information that you expected, contact Release of Information in the Health Information Management department at [phone] for further assistance in locating additional records.[facility] Allergies Active Allergy Reactions Severity Noted Date Comments Exenatide Microspheres HIVES Medium 10/26/2016 Sulfa (Sulfonamide [facility] Medium 10/26/2016 Antibiotics) Current Medications Prescription Sig. Disp. Refills Start End Date Status Date lisinopril (PRINIVIL; Take 10 mg by mouth Active ZESTRIL) 10 mg tablet daily. traMADol (ULTRAM) 50 mg Take 50 mg by mouth every Active tablet 6 hours as needed for Pain. DIMENHYDRINATE (TRAVEL Take by mouth as Needed. Active SICKNESS PO) fenofibrate Take 145 mg by mouth Active nanocrystallized (TRICOR) daily. Take with food. 145 mg tablet rOPINIRole (REQUIP) 0.5 Take 0.5 mg by mouth Active mg tablet three times daily. clopiDOGrel (PLAVIX) 75 Take 75 mg by mouth Active mg tablet daily. rosuvastatin (CRESTOR) 20 Take 20 mg by mouth Active mg tablet daily. hydroCHLOROthiazide Take 25 mg by mouth every Active (HYDRODIURIL) 25 mg morning. tablet metoprolol tartrate Take 25 mg by mouth twice Active (LOPRESSOR) 25 mg tablet daily. potassium chloride(+) Take 10 mEq by mouth Active (MICRO-K) 10 mEq capsule daily. Take with a meal and a full glass of water. isosorbide mononitrate SR Take 60 mg by mouth every Active (IMDUR) 60 mg tablet morning. DOCOSAHEXANOIC ACID/EPA Take by mouth twice Active (FISH OIL PO) daily. levothyroxine (SYNTHROID) Take 75 mcg by mouth Active 75 mcg tablet daily 30 minutes before breakfast. vitamins, B complex tab Take 1 Tab by mouth Active daily. aspirin 325 mg tablet Take 81 mg by mouth Active daily. Take with food. gabapentin (NEURONTIN) 1 cap po in am and 150 capsule 2 04/10/20 Active 100 mg afternoon, 3 caps at 17 capsuleIndications: bedtime. Indications: Neuropathic Pain NEUROPATHIC PAIN dulaglutide 0.75 mg/0.5 Inject under the skin. Active mL pnij Active Problems No known active problems Social History Tobacco Use Types Packs/Day Years Used Date Former Smoker Smokeless Tobacco: Former User Sex Assigned at Date Recorded Not on file Last Filed Vital Signs Vital Sign Reading Time Taken Blood Pressure 166/71 10/15/2017 3:08 PM CDT Pulse 67 10/15/2017 3:08 PM CDT Temperature 36.7 C (98 F) 10/15/2017 2:19 PM CDT Respiratory Rate 17 01/18/2017 12:47 PM CDT Oxygen Saturation 99% 10/15/2017 3:08 PM CDT Inhaled Oxygen - - Concentration Weight 76.7 kg (169 lb) 10/15/2017 2:19 PM CDT Height 167.6 cm (5' 6") 10/15/2017 2:19 PM CDT Body Mass Index 27.28 10/15/2017 2:19 PM CDT Plan of Treatment Health Maintenance Due Date Last Done Comments HEPATITIS C SCREENING 1953 PHYSICAL (COMPREHENSIVE) 1960 EXAM HIV SCREENING 1968 DTAP/TDAP VACCINES (1 - 07/29/1971 Tdap) CERVICAL CANCER SCREENING 07/29/1983 BREAST CANCER SCREENING 1993 COLORECTAL CANCER 07/29/2003 SCREENING SHINGLES RECOMBINANT 07/29/2003 VACCINE (1 of 2) INFLUENZA VACCINE 12/11/2017 01/17/2016, 01/04/2011 Results Not on filefrom Last 3 Months
--- OUTSIDE RECORDS SUMMARY | 2018-04-05 19:55 | XMS REPORT ---
Author Author KING JASIEL Organization [facility] Address [address] [place] [address] Care Team Providers Care Natural Resources Manager Name Role Phone JASIEL KENDRICK Unavailable PROBLEMS Type Condition ICD9-CM Code MHB45-FN Code Onset Dates Condition Status SNOMED Code Problem Acquired hypothyroidism E03.9 Active 881389547 Problem Type 2 diabetes mellitus with diabetic chronic kidney disease E11.22 Active 13890083 Problem Restless leg syndrome G25.81 Active 04782858 Problem Mixed incontinence N39.46 Active 967842232 Problem Hypercalcemia E83.52 Active 06626187 Problem Low back pain M54.5 Active 883970641 Problem Chronic kidney disease, stage 1 N18.1 Active 071562212 Problem Bilateral carotid artery disease I77.9 Active 928052378 Problem Osteoarthritis of spine with radiculopathy, cervical region M47.22 Active 909624322 Problem Coronary artery disease involving still[place] coronary artery of still[place] heart without angina pectoris I25.10 Active 8242042509795 Problem Essential hypertension I10 Active 19007758 Problem Renal insufficiency N28.9 Active 575212405 Problem Type 2 diabetes mellitus without complication, without long-term current use of insulin E11.9 Active 102571453 Problem Vitamin D deficiency E55.9 Active 95906434 Problem Mixed hyperlipidemia E78.2 Active [id number] ALLERGIES No Information ENCOUNTERS Encounter Location Date Diagnosis [facility] [address] [facility] [id number] [address] Feb, [facility] [address] [address] Feb, Low back pain M54.5 [facility] [address] [id number] [address] Feb, Essential hypertension I10 ; Mixed hyperlipidemia E78.2 ; Coronary artery disease involving still[place] coronary artery of still[place] heart without angina pectoris I25.10 ; Screening for breast cancer Z12.31 and Mixed incontinence N39.46 [place] [id number] [place] [address] 37076- 6469 18 Jan, 2018 [place] [id number] [place] [address] 66257- 0756 06 Jan, 2018 Coronary artery disease involving still[place] coronary artery of [place] heart without angina pectoris I25.10 [place] [id number] [place] [address] 33294- 2046 Jan, Low back pain M54.5 and Coronary artery disease involving still[place] coronary artery of still[place] heart without angina pectoris I25.10 [place] [id number] [place] [address] 02532- 7371 Dec, Acquired hypothyroidism E03.9 and Vertigo R42 [place] [address] [address]38- 1387 Dec, Low back pain M54.5 and Dermatitis L30.9 [place] [id number] [place] [address] 73011- 5095 Nov, Coronary artery disease involving still[place] coronary artery of still[place] heart without angina pectoris I25.10 [place] [id number] [place] [address] 17996- 0293 Nov, Acquired hypothyroidism E03.9 and Vertigo R42 [place] [id number] [place] [address] 89510- 8482 Nov, Encounter for well woman exam Z01.419 ; Screening for osteoporosis Z13.820 and Screening for colon cancer Z12.11 [place] [id number] [place] [address] 15738- 8460 Oct, Coronary artery disease involving still[place] coronary artery of still[place] heart without angina pectoris I25.10 [place] [id number] [place] [address] 53533- 0885 September, [place] [address] [place] [address] September, [facility] [id number] [place] [address] 34632- 1977 Aug, Type 2 diabetes mellitus without complication, without long- term current use of insulin E11.9 ; Essential hypertension I10 ; Acquired hypothyroidism E03.9 and Low back pain M54.5 [place] [address] [address]- 14[address] Aug, [facility] [address] 12[address]- 3672 Aug, [place] [address] 97126- 8418 Jul, [place] [address] 84330- 2537 Jul, Coronary artery disease involving still[place] coronary artery of still[place] heart without angina pectoris I25.10 [place] [id number] [place] [address] 15614- 2423 Jun, Low back pain M54.5 and Essential hypertension I10 [place] [address] 71328- 9220 Jun, Head cold J00 [place] [id number] [place] [address] 34300- 7449 May, [place] [id number] [place] [address] 95814- 3557 Apr, Type 2 diabetes mellitus without complication, without long- term current use of insulin E11.9 [place] [id number] [place] [address] 15334- 5200 Apr, Type 2 diabetes mellitus without complication, without long- term current use of insulin E11.9 [place] [id number] [place] [address] 25991- 7879 05 Apr, 2017 Essential hypertension I10 [place] [id number] [place] [address] 16228- 5091 Mar, [place] [id number] [place] [address] 73973- 8010 Mar, [place] [id number] [place] [address] 53494- 8014 Mar, Osteoarthritis of spine with radiculopathy, cervical region M47.22 [place] [address] 75328- 7631 Mar, [place] [id number] [place] [address] 10113- 8314 Feb, [place] [address] 03080- 3074 Feb, Screening breast examination Z12.31 ; Bilateral carotid artery disease I77.9 ; Low back pain M54.5 ; Osteoarthritis of spine with radiculopathy, cervical region M47.22 ; Renal insufficiency N28.9 ; Vitamin D deficiency E55.9 ; Restless leg syndrome G25.81 ; Acquired hypothyroidism E03.9 ; Coronary artery disease involving still[place] coronary artery of still[place]ish heart without angina pectoris I25.10 ; Vertigo R42 ; Essential hypertension I10 ; Type 2 diabetes mellitus with diabetic chronic kidney disease E11.22 and Encounter for immunization Z23 [place] [id number] [place] [address] 75827- 6935 Jan, [place] [id number] [place] [address] 26968- 6720 Jan, Type 2 diabetes mellitus without complication, without long- term current use of insulin E11.9 ; Low back pain M54.5 ; Osteoarthritis of spine with radiculopathy, cervical region M47.22 ; Renal insufficiency N28.9 ; Vitamin D deficiency E55.9 ; Restless leg syndrome G25.81 ; Bilateral carotid artery disease I77.9 ; Acquired hypothyroidism E03.9 ; Coronary artery disease involving still[place] coronary artery of still[place] heart without angina pectoris I25.10 and Lipoma of back D17.1 [place] [address] [place] [address]- 0987 Jan, Type 2 diabetes mellitus without complication, without long- term current use of insulin E11.9 [place] [id number] [place] [address] 45307- 3874 Dec, Osteoarthritis of spine with radiculopathy, cervical region M47.22 [place] [id number] [place] [address] 93409- 4325 Nov, [place] [id number] [place] [address] 44407- 7292 Nov, Low back pain M54.5 and Osteoarthritis of spine with radiculopathy, cervical region M47.22 [place] [id number] [place] [address] 57185- 7055 Nov, Osteoarthritis of spine with radiculopathy, cervical [...] hypothyroidism E03.9 ; Coronary artery disease involving still[place] coronary artery of still[place]ish heart without angina pectoris I25.10 ; Hypercalcemia E83.52 and Left foot pain M79.672 [place] [id number] [place] [address] 37661- 4044 Oct, [place] [id number] [place] [address] 79222- 1964 Oct, Osteoarthritis of spine with radiculopathy, cervical region M47.22 [place] [id number] [place] [address] 93313- 7695 Oct, Abnormal blood chemistry R79.9 [place] [address] [place] [address] 01086- 3444 September, Osteoarthritis of spine with radiculopathy, cervical region M47.22 ; Essential hypertension I10 ; Renal insufficiency N28.9 ; Type 2 diabetes mellitus without complication, without long-term current use of insulin E11.9 ; Vitamin D deficiency E55.9 ; Paresthesia of both hands R20.2 ; Low back pain M54.5 ; Restless leg syndrome G25.[address] [facility] [address] [address] September, [facility] [address] [address]- 8959 September, [facility] [id number] [place] [address] 20520- 4674 September, [facility] [id number] [address]- 6615 September, [facility] [id number] [place] [address] 54844- 1458 Aug, [facility] [address] [address]- 5155 Aug, [facility] [address] [address]- 5375 Aug, [facility] [address] [address]- 8647 Aug, [facility] [address] [address]- 2372 Aug, Osteoarthritis of spine with radiculopathy, cervical region M47.22 [facility] [id number] [address]- 4321 05 Aug, 2016 Essential hypertension I10 ; Renal insufficiency N28.9 ; Type 2 diabetes mellitus without complication, without long-term current use of insulin E11.9 ; Vitamin D deficiency E55.9 ; Paresthesia of both hands R20.2 ; Low back pain M54.5 ; Restless leg syndrome G25.81 ; Osteoarthritis of spine with radiculopathy, cervical region M47.[address] [facility] [address] [address]- 5976 Jul, [facility] [id number] [place] [address] 59070- 3453 Jul, [facility] [address] [address]- 0297 Jul, Essential hypertension I10 ; Paresthesia of both hands R20.2 ; Upper respiratory tract infection, unspecified type J06.9 and Low back pain M54.5 [place] [address] [address]- 6546 Jul, [place] [id number] [place] [address] 42699- 3456 Jul, [place] [address] [address]- 3778 Jul, Renal insufficiency N28.9 ; Vitamin D deficiency E55.9 ; Type 2 diabetes mellitus without complication, without long-term current use of insulin E11.9 ; Restless leg syndrome G25.81 ; Type 2 diabetes mellitus with diabetic chronic kidney disease E11.22 and Chronic kidney disease, stage 1 N18.1 [place] [address] [address]- 2051 Jul, Renal insufficiency N28.9 [place] [address] [address]- 3461 Jun, [facility] [address] [address]- 0439 Jun, Renal insufficiency N28.9 ; Vitamin D deficiency E55.9 ; Type 2 diabetes mellitus without complication, without long-term current use of insulin E11.9 ; Restless leg syndrome G25.81 ; Type 2 diabetes mellitus with diabetic chronic kidney disease E11.22 and Chronic kidney disease, stage 1 N18.1 [place] [address] [address]- 1291 Jun, [facility] [address] [address] 3568 May, [facility] [address] [place] [address] 71390- 0443 May, [facility] [id number] [place] [address] 38894- 0886 May, [place] [id number] [place] [address] 16723- 2758 May, [facility] [id number] [place] [address] 34645- 1762 May, [place] [id number] [place] [address] 24246- 6244 Apr, Acquired hypothyroidism E03.9 ; Essential hypertension I10 ; Type 2 diabetes mellitus without complication, without long-term current use of insulin E11.9 and Mixed hyperlipidemia E78.2 [place] [id number] [place] [address] 80431- 6743 Apr, Type 2 diabetes mellitus without complication, without long- term current use of insulin E11.9 ; Coronary artery disease involving still[place] coronary artery of still[place] heart without angina pectoris I25.10 ; Essential hypertension I10 and Acquired hypothyroidism E03.9 [place] [address] [place] [address] 40094- 6915 Apr, Cellulitis of left lower extremity L03.116 [place] [address] [place] [address] 69549- 2956 Apr, Essential hypertension I10 ; Mixed hyperlipidemia E78.2 ; Type 2 diabetes mellitus without complication, without long-term current use of insulin E11.9 ; Acquired hypothyroidism E03.9 ; Cellulitis of left lower extremity L03.116 and Coronary artery disease involving still[place] coronary artery of still[place] heart without angina pectoris I25.10 [place] [address] [place] [address] 43790- 3598 14 Apr, 2016 [facility] [id number] [place] [address] 15979 -1277 Dec, Dermatitis L30.9 [facility] [address] [id number] [place] [address]- 8376 Aug, [facility] [address] [id number] [place] [address]- 4326 Aug, [facility] [address] [id number] [place] [address]- 0826 Jan, [facility] [address] [id number] [place] [address] 2547 Jan, [facility] [address] [id number] [place] [address]- 0491 Jun, [facility] [address] [facility] [id number] [place] [address]- 3063 May, [facility] [id number] [place] [address]- 2240 May, [facility] [address] [facility] [id number] [place] [address]- 7593 May, [facility] [address] [facility] [id number] [place] [address]- 2329 Apr, [facility] [address] [facility] [id number] [place] [address]- 9515 Feb, [facility] [address] [id number] [place] [address]- 4910 Feb, [facility] [address] [facility] [id number] [place] [address]- 0704 Nov, [facility] [address] [id number] [place] [address]- 0882 Nov, [facility] [address] [facility] [id number] [place] [address]- 2545 Nov, [facility] [address] [facility] [id number] [place] [address]- 6385 Nov, [facility] [address] [facility] [id number] [place] [address]- [address] Nov, [facility] [address] [facility] [id number] [place] [address]- 0909 Nov, [facility] [address] [facility] [id number] [place] [address]- 8194 Nov, IMMUNIZATIONS No Known Immunizations SOCIAL HISTORY Never Assessed REASON FOR VISIT Requests return call PLAN OF CARE VITAL SIGNS MEDICATIONS Unknown Medications RESULTS No Results PROCEDURES No Known procedures [...]
--- OUTSIDE RECORDS SUMMARY | 2018-04-05 19:55 | XMS REPORT ---
Author Author KING JASIEL Organization [facility] Address [address] [place] [address] Care Team Providers Care Resource Forester Name Role Phone JASIEL KENDRICK Unavailable PROBLEMS Type Condition ICD9-CM Code NAR24-IG Code Onset Dates Condition Status SNOMED Code Problem Acquired hypothyroidism E03.9 Active 570834962 Problem Type 2 diabetes mellitus with diabetic chronic kidney disease E11.22 Active 11778935 Problem Restless leg syndrome G25.81 Active 41690542 Problem Mixed incontinence N39.46 Active 667966753 Problem Hypercalcemia E83.52 Active 16487670 Problem Low back pain M54.5 Active 085468540 Problem Chronic kidney disease, stage 1 N18.1 Active 180289891 Problem Bilateral carotid artery disease I77.9 Active 925656886 Problem Osteoarthritis of spine with radiculopathy, cervical region M47.22 Active 764928293 Problem Coronary artery disease involving [place] coronary artery of [place] heart without angina pectoris I25.10 Active 2278287577122 Problem Essential hypertension I10 Active 22740057 Problem Renal insufficiency N28.9 Active 282810083 Problem Type 2 diabetes mellitus without complication, without long-term current use of insulin E11.9 Active 638912403 Problem Vitamin D deficiency E55.9 Active 68089483 Problem Mixed hyperlipidemia E78.2 Active [id number] ALLERGIES No Information ENCOUNTERS Encounter Location Date Diagnosis [facility] [address] [facility] [id number] [address] Feb, [facility] [address] [address] Feb, Low back pain M54.5 [facility] [id number] [address] Feb, Essential hypertension I10 ; Mixed hyperlipidemia E78.2 ; Coronary artery disease involving [place] coronary artery of [place] heart without angina pectoris I25.10 ; Screening for breast cancer Z12.31 and Mixed incontinence N39.46 [place] [id number] [place] [address] 25364- 6660 18 Jan, 2018 [place] [id number] [place] [address] 64118- 5091 06 Jan, 2018 Coronary artery disease involving [place] coronary artery of [place] heart without angina pectoris I25.10 [place] [id number] [place] [address] 89232- 1815 Jan, Low back pain M54.5 and Coronary artery disease involving [place] coronary artery of [place] heart without angina pectoris I25.10 [place] [id number] [place] [address] 62199- 1714 Dec, Acquired hypothyroidism E03.9 and Vertigo R42 [place] [address] [address]- 8543 Dec, Low back pain M54.5 and Dermatitis L30.9 [place] [id number] [place] [address] 07504- 8388 Nov, Coronary artery disease involving [place] coronary artery of [place] heart without angina pectoris I25.10 [place] [id number] [place] [address] 86087- 9774 Nov, Acquired hypothyroidism E03.9 and Vertigo R42 [place] [id number] [place] [address] 07746- 0206 Nov, Encounter for well woman exam Z01.419 ; Screening for osteoporosis Z13.820 and Screening for colon cancer Z12.11 [place] [id number] [place] [address] 01277- 7068 Oct, Coronary artery disease involving [place] coronary artery of [place] heart without angina pectoris I25.10 [place] [id number] [place] [address] 53856- 6645 September, [place] [address] [place] [address] September, [facility] [id number] [place] [address] 08449- 9002 Aug, Type 2 diabetes mellitus without complication, without long- term current use of insulin E11.9 ; Essential hypertension I10 ; Acquired hypothyroidism E03.9 and Low back pain M54.5 [place] [address] 34776- 5710 Aug, [facility] [address] [address]- 3817 Aug, [place] [address] 17936- 5861 Jul, [place] [address] 72235- 1735 Jul, Coronary artery disease involving [place] coronary artery of [place] heart without angina pectoris I25.10 [place] [id number] [place] [address] 18709- 8936 Jun, Low back pain M54.5 and Essential hypertension I10 [place] [address] 9[address]77- 7548 Jun, Head cold J00 [place] [id number] [place] [address] 22010- 7632 May, [place] [id number] [place] [address] 10338- 0729 Apr, Type 2 diabetes mellitus without complication, without long- term current use of insulin E11.9 [place] [id number] [place] [address] 96490- 6040 Apr, Type 2 diabetes mellitus without complication, without long- term current use of insulin E11.9 [place] [id number] [place] [address] 57417- 9891 05 Apr, 2017 Essential hypertension I10 [place] [id number] [place] [address] 88301- 7382 Mar, [place] [id number] [place] [address] 56990- 3030 Mar, [place] [id number] [place] [address] 27612- 4588 Mar, Osteoarthritis of spine with radiculopathy, cervical region M47.22 [place] [address] 00770- 3260 Mar, [place] [id number] [place] [address] 75255- 3839 Feb, [place] [address] 39741- 7165 Feb, Screening breast examination Z12.31 ; Bilateral carotid artery disease I77.9 ; Low back pain M54.5 ; Osteoarthritis of spine with radiculopathy, cervical region M47.22 ; Renal insufficiency N28.9 ; Vitamin D deficiency E55.9 ; Restless leg syndrome G25.81 ; Acquired hypothyroidism E03.9 ; Coronary artery disease involving [place] coronary artery of [place] heart without angina pectoris I25.10 ; Vertigo R42 ; Essential hypertension I10 ; Type 2 diabetes mellitus with diabetic chronic kidney disease E11.22 and Encounter for immunization Z23 [place] [id number] [place] [address] 98704- 1352 Jan, [place] [id number] [place] [address] 74129- 3504 Jan, Type 2 diabetes mellitus without complication, without long- term current use of insulin E11.9 ; Low back pain M54.5 ; Osteoarthritis of spine with radiculopathy, cervical region M47.22 ; Renal insufficiency N28.9 ; Vitamin D deficiency E55.9 ; Restless leg syndrome G25.81 ; Bilateral carotid artery disease I77.9 ; Acquired hypothyroidism E03.9 ; Coronary artery disease involving [place] coronary artery of [place] heart without angina pectoris I25.10 and Lipoma of back D17.1 [place] [address] [place] [address]- 7486 Jan, Type 2 diabetes mellitus without complication, without long- term current use of insulin E11.9 [place] [id number] [place] [address] 19162- 0891 Dec, Osteoarthritis of spine with radiculopathy, cervical region M47.22 [place] [id number] [place] [address] 46061- 9612 Nov, [place] [id number] [place] [address] 83738- 3714 Nov, Low back pain M54.5 and Osteoarthritis of spine with radiculopathy, cervical region M47.22 [place] [id number] [place] [address] 47938- 9253 Nov, Osteoarthritis of spine with radiculopathy, cervical [...] hypothyroidism E03.9 ; Coronary artery disease involving [place] coronary artery of [place] heart without angina pectoris I25.10 ; Hypercalcemia E83.52 and Left foot pain M79.672 [place] [id number] [place] [address] 06534- 9171 Oct, [place] [id number] [place] [address] 46763- 8620 Oct, Osteoarthritis of spine with radiculopathy, cervical region M47.22 [place] [id number] [place] [address] 16434- 2158 Oct, Abnormal blood chemistry R79.9 [place] [id number] [place] [address] 56897- 0541 September, Osteoarthritis of spine with radiculopathy, cervical region M47.22 ; Essential hypertension I10 ; Renal insufficiency N28.9 ; Type 2 diabetes mellitus without complication, without long-term current use of insulin E11.9 ; Vitamin D deficiency E55.9 ; Paresthesia of both hands R20.2 ; Low back pain M54.5 ; Restless leg syndrome G25.81 and Dizziness R42 [facility] [address], [place] [address] September, [facility] [address], [place] [address]- 2088 September, [facility] [id number] [place] [address] 01263- 0078 September, [facility] [address] [place] [address] 6918 September, [facility] [id number] [place] [address] 12364- 6745 Aug, [facility] [address], [place] [address]- 9964 Aug, [facility] [address], [place] [address]- 7469 Aug, [facility] [address], [place] [address]- 9789 Aug, [facility] [address], [place] [address]- 8621 Aug, Osteoarthritis of spine with radiculopathy, cervical region M47.22 [facility] [id number] [address]- 1789 05 Aug, 2016 Essential hypertension I10 ; Renal insufficiency N28.9 ; Type 2 diabetes mellitus without complication, without long-term current use of insulin E11.9 ; Vitamin D deficiency E55.9 ; Paresthesia of both hands R20.2 ; Low back pain M54.5 ; Restless leg syndrome G25.81 ; Osteoarthritis of spine with radiculopathy, cervical region M47.22 and Dizziness R42 [facility] [address], [place] [address]- 3215 Jul, [facility] [id number] [place] [address] 06616- 3845 Jul, [facility] [address], [place] [address]- 5780 Jul, Essential hypertension I10 ; Paresthesia of both hands R20.2 ; Upper respiratory tract infection, unspecified type J06.9 and Low back pain M54.5 [place] [address], [place] [address]- 5568 Jul, [place] [id number] [place] [address] 21683- 5027 Jul, [place] [address] [address]- 7742 Jul, Renal insufficiency N28.9 ; Vitamin D deficiency E55.9 ; Type 2 diabetes mellitus without complication, without long-term current use of insulin E11.9 ; Restless leg syndrome G25.81 ; Type 2 diabetes mellitus with diabetic chronic kidney disease E11.22 and Chronic kidney disease, stage 1 N18.1 [place] [address], [place] [address]- 9813 Jul, Renal insufficiency N28.9 [place] [address], [place] [address]- 2577 Jun, [facility] [address], [place] [address]- 7593 Jun, Renal insufficiency N28.9 ; Vitamin D deficiency E55.9 ; Type 2 diabetes mellitus without complication, without long-term current use of insulin E11.9 ; Restless leg syndrome G25.81 ; Type 2 diabetes mellitus with diabetic chronic kidney disease E11.22 and Chronic kidney disease, stage 1 N18.1 [place] [address], [place] [address]- 2599 Jun, [facility] [address], [place] [address]- 0173 May, [facility] [address] [place] [address] 96245- 1375 May, [facility] [id number] [place] [address] 77522- 6234 May, [place] [id number] [place] [address] 18343- 7196 May, [facility] [id number] [place] [address] 28962- 7804 May, [place] [id number] [place] [address] 58549- 2797 Apr, Acquired hypothyroidism E03.9 ; Essential hypertension I10 ; Type 2 diabetes mellitus without complication, without long-term current use of insulin E11.9 and Mixed hyperlipidemia E78.2 [place] [id number] [place] [address] 33315- 1704 Apr, Type 2 diabetes mellitus without complication, without long- term current use of insulin E11.9 ; Coronary artery disease involving [place] coronary artery of [place] heart without angina pectoris I25.10 ; Essential hypertension I10 and Acquired hypothyroidism E03.9 [place] [address] [place] [address] 38249- 1868 Apr, Cellulitis of left lower extremity L03.116 [place] [address] [place] [address] 97813- 3821 Apr, Essential hypertension I10 ; Mixed hyperlipidemia E78.2 ; Type 2 diabetes mellitus without complication, without long-term current use of insulin E11.9 ; Acquired hypothyroidism E03.9 ; Cellulitis of left lower extremity L03.116 and Coronary artery disease involving [place] coronary artery of [place] heart without angina pectoris I25.10 [place] [address] [place] [address] 23335- 1734 14 Apr, 2016 [facility] [id number] [place] [address] 33774 -0850 Dec, Dermatitis L30.9 [facility] [address] [id number] [place] [address]- 7996 Aug, [facility] [address] [id number] [place] [address]- 3726 Aug, [facility] [address] [id number] [place] [address]- 3246 Jan, [facility] [address] [id number] [place] [address] 2545 Jan, [facility] [address] [id number] [place] [address]- 4252 Jun, [facility] [address] [facility] [id number] [place] [address]- 3584 May, [facility] [id number] [place] [address]- 5306 May, [facility] [address] [facility] [id number] [place] [address]- 6436 May, [facility] [address] [facility] [id number] [place] [address]- 2567 Apr, [facility] [address] [facility] [id number] [place] [address]- 0172 Feb, [facility] [address] [id number] [place] [address]- 8005 Feb, [facility] [address] [facility] [id number] [place] [address]- 5998 Nov, [facility] [address] [id number] [place] [address]- 5509 Nov, [facility] [address] [facility] [id number] [place] [address]- 2545 Nov, [facility] [address] [facility] [id number] [place] [address]- 2499 Nov, [facility] [address] [facility] [id number] [place] [address]- 0302 Nov, [facility] [address] [facility] [id number] [place] [address]- 4904 Nov, [facility] [address] [facility] [id number] [place] [address]- 3419 Nov, IMMUNIZATIONS No Known Immunizations SOCIAL HISTORY Never Assessed REASON FOR VISIT Repository Medication PLAN OF CARE VITAL SIGNS MEDICATIONS Medication Instructions Dosage Frequency Start Date End Date Duration Status Gabapentin 300 MG Orally three times a day 1 capsule 8h Active RESULTS No Results PROCEDURES No [...]
--- OUTSIDE RECORDS SUMMARY | 2018-04-05 19:56 | XMS REPORT ---
Author Author JASIEL KENDRICK [facility] Address [address] [place] [address] Care Team Providers Care Resident Buyer Name Role Phone JOANIE KENDRICKTA Unavailable PROBLEMS Type Condition ICD9-CM Code UQY22-AJ Code Onset Dates Condition Status SNOMED Code Problem Mixed hyperlipidemia E78.2 Active 975380710 Problem Restless leg syndrome G25.81 Active 23674280 Problem Acquired hypothyroidism E03.9 Active 810802711 Problem Hypercalcemia E83.52 Active 49551341 Problem Bilateral carotid artery disease I77.9 Active 457509036 Problem Chronic kidney disease, stage 1 N18.1 Active 601435360 Problem Type 2 diabetes mellitus with diabetic chronic kidney disease E11.22 Active 60625305 Problem Osteoarthritis of spine with radiculopathy, cervical region M47.22 Active 334585382 Problem Low back pain M54.5 Active 809702485 Problem Vitamin D deficiency E55.9 Active 10490161 Problem Coronary artery disease involving united auburn coronary artery of united auburn heart without angina pectoris I25.10 Active 9872669883880 Problem Essential hypertension I10 Active 41975979 Problem Renal insufficiency N28.9 Active 142165202 Problem Type 2 diabetes mellitus without complication, without long-term current use of insulin E11.9 Active 337372572 ALLERGIES No Information ENCOUNTERS Encounter Location Date Diagnosis [facility], [place] [id number], [place] [address] Jan, [facility], [place] [id number] [place] [address] 65329- 6387 Jan, Coronary artery disease involving united auburn coronary artery of united [place]ub[place] heart without angina pectoris I25.10 [facility], [place] [id number], [place] [address] Jan, Low back pain M54.5 and Coronary artery disease involving united auburn coronary artery of united [place] heart without angina pectoris I25.10 [facility], [place] [id number] [place] [address] 95345- 2316 Dec, Acquired hypothyroidism E03.9 and Vertigo R42 [facility] [id number] [place] [address] 96154- 2926 Dec, Low back pain M54.5 and Dermatitis L30.9 [facility] [id number] [place] [address] 55522- 7459 Nov, Coronary artery disease involving united auburn coronary artery of united [place] heart without angina pectoris I25.10 [facility] [id number] [place] [address] 76571- 1323 Nov, Acquired hypothyroidism E03.9 and Vertigo R42 [facility] [id number] [place] [address] 51806- 0914 Nov, Encounter for well woman exam Z01.419 ; Screening for osteoporosis Z13.820 and Screening for colon cancer Z12.11 [facility] [id number] [place] [address] 39557- 7287 Oct, Coronary artery disease involving united auburn coronary artery of united [place]ub[place] heart without angina pectoris I25.10 [facility] [id number] [place] [address] 49806- 1846 September, [facility] [id number] [place] [address] 34695- 9744 September, [facility] [id number] [place] [address] 09284- 8825 Aug, Type 2 diabetes mellitus without complication, without long- term current use of insulin E11.9 ; Essential hypertension I10 ; Acquired hypothyroidism E03.9 and Low back pain M54.5 [facility] [id number] [place] [address] 62429- 8518 Aug, [facility] [id number] [place] [address] 45366- 1892 Aug, [facility] [id number] [place] [address] 51200- 4715 Jul, [facility], [place] [id number] [place] [address] 87045- 9874 Jul, Coronary artery disease involving united auburn coronary artery of united auburn heart without angina pectoris I25.10 [facility], [place] [id number] [place] [address] 59625- 2668 Jun, Low back pain M54.5 and Essential hypertension I10 [facility], [place] [id number] [place] [address] 18589- 1763 Jun, Head cold J00 [facility], [place] [id number] [place] [address] 10794- 4706 May, [facility], [place] [id number] [place] [address] 56450- 2711 14 Apr, 2017 Type 2 diabetes mellitus without complication, without long- term current use of insulin E11.9 [facility], [place] [id number] [place] [address] 14455- 2425 12 Apr, 2017 Type 2 diabetes mellitus without complication, without long- term current use of insulin E11.9 [facility], [place] [id number] [place] [address] 78248- 9238 Apr, Essential hypertension I10 [facility], [place] [id number] [place] [address] 39412- 4510 Mar, [facility], [place] [id number] [place] [address] 02241- 5942 Mar, [facility], [place] [id number] [place] [address] 79261- 6383 Mar, Osteoarthritis of spine with radiculopathy, cervical region M47.22 [facility], [place] [id number] [place] [address] 56609- 1399 Mar, [facility], [place] [id number] [place] [address] 71403- 5243 Feb, [facility] [facility] [id number] [place] [address] 77703- 1085 Feb, Screening breast examination Z12.31 ; Bilateral carotid artery disease I77.9 ; Low back pain M54.5 ; Osteoarthritis of spine with radiculopathy, cervical region M47.22 ; Renal insufficiency N28.9 ; Vitamin D deficiency E55.9 ; Restless leg syndrome G25.81 ; Acquired hypothyroidism E03.9 ; Coronary artery disease involving united auburn coronary artery of united auburn heart without angina pectoris I25.10 ; Vertigo R42 ; Essential hypertension I10 ; Type 2 diabetes mellitus with diabetic chronic kidney disease E11.22 and Encounter for immunization Z23 [facility] [address] 6[address]00- 7198 Jan, [facility] [id number] [place] [address] 28896- 0675 Jan, Type 2 diabetes mellitus without complication, without long- term current use of insulin E11.9 ; Low back pain M54.5 ; Osteoarthritis of spine with radiculopathy, cervical region M47.22 ; Renal insufficiency N28.9 ; Vitamin D deficiency E55.9 ; Restless leg syndrome G25.81 ; Bilateral carotid artery disease I77.9 ; Acquired hypothyroidism E03.9 ; Coronary artery disease involving united auburn coronary artery of united auburn heart without angina pectoris I25.10 and Lipoma of back D17.1 [facility] [id number] [place] [address] 08125- 9579 Jan, Type 2 diabetes mellitus without complication, without long- term current use of insulin E11.9 [facility] [id number] [place] [address] 89275- 2834 Dec, Osteoarthritis of spine with radiculopathy, cervical region M47.22 [facility] [id number] [place] [address] 41626- 5114 Nov, [facility] [id number] [place] [address] 84887- 8837 Nov, Low back pain M54.5 and Osteoarthritis of spine with radiculopathy, cervical region M47.22 [facility] [id number] [place] [address] 01650- 3560 Nov, Osteoarthritis of spine with radiculopathy, cervical [...] hypothyroidism E03.9 ; Coronary artery disease involving united auburn coronary artery of united auburn heart without angina pectoris I25.10 ; Hypercalcemia E83.52 and Left foot pain M79.672 [facility] [id number] [place] [address] 41752- 1261 Oct, [facility] [facility] [address] 72549- 3730 Oct, Osteoarthritis of spine with radiculopathy, cervical region M47.22 [facility] [id number] [place] [address] 80323- 9264 Oct, Abnormal blood chemistry R79.9 [facility] [id number] [place] [address] 52957- 9626 September, Osteoarthritis of spine with radiculopathy, cervical region M47.22 ; Essential hypertension I10 ; Renal insufficiency N28.9 ; Type 2 diabetes mellitus without complication, without long-term current use of insulin E11.9 ; Vitamin D deficiency E55.9 ; Paresthesia of both hands R20.2 ; Low back pain M54.5 ; Restless leg syndrome G25.81 and Dizziness R42 [place] [facility] [id number] [place] [address] 66581- 2297 September, [facility] [id number] [place] [address] 42972- 3166 September, [place] [address] [place] [address]- 2978 September, [facility], [place] [address], [place] [address]- 8696 September, [facility], [place] [address], [place] [address]- 3958 Aug, [facility], [place] [id number] [place] [address] 44310- 2805 Aug, [facility], [place] [id number] [place] [address] 63181- 6136 Aug, [facility], [place] [id number] [place] [address] 98459- 2938 Aug, [facility], [place] [id number] [place] [address] 04566- 2664 Aug, Osteoarthritis of spine with radiculopathy, cervical region M47.22 [facility] [id number] [place] [address] 92963- 5248 Aug, Essential hypertension I10 ; Renal insufficiency N28.9 ; Type 2 diabetes mellitus without complication, without long-term current use of insulin E11.9 ; Vitamin D deficiency E55.9 ; Paresthesia of both hands R20.2 ; Low back pain M54.5 ; Restless leg syndrome G25.81 ; Osteoarthritis of spine with radiculopathy, cervical region M47.22 and Dizziness R42 [facility], [place] [address], [place] [address]- 3956 Jul, [facility], [place] [address], [place] [address]- 4023 Jul, [facility], [place] [id number] [place] [address] 98086- 6202 Jul, Essential hypertension I10 ; Paresthesia of both hands R20.2 ; Upper respiratory tract infection, unspecified type J06.9 and Low back pain M54.5 [facility], [place] [address], [place] [address]- 3380 Jul, [facility], [place] [address] [address]- 9452 Jul, [facility], [place] [address], [place] [address]- 2876 Jul, Renal insufficiency N28.9 ; Vitamin D deficiency E55.9 ; Type 2 diabetes mellitus without complication, without long-term current use of insulin E11.9 ; Restless leg syndrome G25.81 ; Type 2 diabetes mellitus with diabetic chronic kidney disease E11.22 and Chronic kidney disease, stage 1 N18.1 [facility], [place] [address], [place] [address]- 6558 Jul, Renal insufficiency N28.9 [facility], [place] [address], [place] [address]- 7897 Jun, [facility], [place] [address], [place] [address]- 1156 Jun, Renal insufficiency N28.9 ; Vitamin D deficiency E55.9 ; Type 2 diabetes mellitus without complication, without long-term current use of insulin E11.9 ; Restless leg syndrome G25.81 ; Type 2 diabetes mellitus with diabetic chronic kidney disease E11.22 and Chronic kidney disease, stage 1 N18.1 [facility], [place] [address], [place] [address]- 8140 Jun, [facility], [place] [id number], [place] [address]- 1967 May, [facility], [place] [address], [place] [address]- 2891 May, [facility], [place] [address], [place] [address]- 2157 May, [facility], [place] [id number] [address] 4950 May, [facility], [place] [address], [place] [address]- 0927 May, [facility], [place] [address], [place] [address]- 4289 Apr, Acquired hypothyroidism E03.9 ; Essential hypertension I10 ; Type 2 diabetes mellitus without complication, without long-term current use of insulin E11.9 and Mixed hyperlipidemia E78.2 [facility], [place] [address], [place] [address]- 9008 Apr, Type 2 diabetes mellitus without complication, without long- term current use of insulin E11.9 ; Coronary artery disease involving united [place]uburn coronary artery of united [place]uburn heart without angina pectoris I25.10 ; Essential hypertension I10 and Acquired hypothyroidism E03.9 [place] [id number] [place] [address] 27460- 5237 Apr, Cellulitis of left lower extremity L03.116 [facility] [facility] [id number] [place] [address] 32393- 2468 Apr, Essential hypertension I10 ; Mixed hyperlipidemia E78.2 ; Type 2 diabetes mellitus without complication, without long-term current use of insulin E11.9 ; Acquired hypothyroidism E03.9 ; Cellulitis of left lower extremity L03.116 and Coronary artery disease involving united auburn coronary artery of united [place]ub[place] heart without angina pectoris I25.10 [facility], [place] [id number] [place] [address] 31164- 1725 Apr, [facility] [address], [place] [address] -4861 Dec, Dermatitis L30.9 [facility], [place] [id number] [place] [address] 03015- 9938 Aug, [facility], [place] [address], [place] [address]- 7835 Aug, [facility], [place] [id number] [place] [address] 11579- 9699 Jan, [facility], [place] [address], [place] [address]- 9349 Jan, [facility], [place] [address] [address] 2546 Jun, [facility], [place] [address], [place] [address]- 9996 May, [facility], [place] [address], [place] [address]- 6646 May, [facility], [place] [address], [place] [address]- 6426 May, [facility], [place] [address], [place] [address]- 1374 Apr, [facility], [place] [address], [place] [address]- 5266 Feb, [facility], [place] [address], [place] [address]- 1216 Feb, [facility], [place] [address], [place] [address]- 7617 Nov, [facility], [place] [address], [place] [address]- 8589 Nov, [facility], [place] [id number] 2318 Nov, [facility], [place] [address], [place] [address]- 8843 Nov, [facility], [place] [address], [place] [address]- 4665 Nov, [facility], [place] [id number], [place] [address]- 2723 Nov, [facility], [place] [id number] 2628 Nov, IMMUNIZATIONS No Known Immunizations SOCIAL HISTORY Never Assessed REASON FOR VISIT Repository meds- [facility] PLAN OF CARE VITAL SIGNS MEDICATIONS Medication Instructions Dosage Frequency Start Date End Date Duration Status Levothyroxine Sodium 75 mcg Orally Once a day 1 tablet on an empty stomach in the morning 24h 90 Active Lisinopril 10 MG TAKE ONE TABLET BY MOUTH ONCE DAILY 90 Active Meclizine HCl 25 MG Orally 3 times [...]
--- OUTSIDE RECORDS SUMMARY | 2018-04-05 19:56 | XMS REPORT ---
Author Author JASIEL KENDRICK [facility] Address [address] [place] [address] Care Team Providers Care Histologic Technician Name Role Phone JOANIE KENDRICKTA Unavailable PROBLEMS Type Condition ICD9-CM Code DKC16-EI Code Onset Dates Condition Status SNOMED Code Problem Mixed hyperlipidemia E78.2 Active 745980078 Problem Restless leg syndrome G25.81 Active 06416961 Problem Acquired hypothyroidism E03.9 Active 363412929 Problem Hypercalcemia E83.52 Active 71236678 Problem Bilateral carotid artery disease I77.9 Active 214662607 Problem Chronic kidney disease, stage 1 N18.1 Active 300172505 Problem Type 2 diabetes mellitus with diabetic chronic kidney disease E11.22 Active 51856724 Problem Osteoarthritis of spine with radiculopathy, cervical region M47.22 Active 818000466 Problem Low back pain M54.5 Active 049766108 Problem Vitamin D deficiency E55.9 Active 18356672 Problem Coronary artery disease involving egegik coronary artery of egegik heart without angina pectoris I25.10 Active 2924068597839 Problem Essential hypertension I10 Active 55910563 Problem Renal insufficiency N28.9 Active 540678201 Problem Type 2 diabetes mellitus without complication, without long-term current use of insulin E11.9 Active 955839356 ALLERGIES No Information ENCOUNTERS Encounter Location Date Diagnosis [facility], [place] [id number] [address] Jan, [facility], [place] [id number] [place] [address] 24716- 5493 Jan, Coronary artery disease involving egegik coronary artery of e[place] heart without angina pectoris I25.10 [facility], [place] [id number] [address] 39[address] Jan, Low back pain M54.5 and Coronary artery disease involving egegik coronary artery of e[place] heart without angina pectoris I25.10 [facility], [place] [id number] [place] [address] 39007- 3208 Dec, Acquired hypothyroidism E03.9 and Vertigo R42 [address] [place] [id number] [place] [address] 72525- 1556 Dec, Low back pain M54.5 and Dermatitis L30.9 [facility] [id number] [place] [address] 59353- 3494 Nov, Coronary artery disease involving egegik coronary artery of e[place] heart without angina pectoris I25.10 [place] [id number] [place] [address] 62730- 0193 Nov, Acquired hypothyroidism E03.9 and Vertigo R42 [place] [id number] [place] [address] 68142- 8938 Nov, Encounter for well woman exam Z01.419 ; Screening for osteoporosis Z13.820 and Screening for colon cancer Z12.11 [place] [id number] [place] [address] 63192- 5242 Oct, Coronary artery disease involving egegik coronary artery of e[place] heart without angina pectoris I25.10 [place] [id number] [place] [address] 25287- 6952 September, [facility] [id number] [place] [address] 35724- 2623 September, [facility] [id number] [place] [address] 82895- 3760 Aug, Type 2 diabetes mellitus without complication, without long- term current use of insulin E11.9 ; Essential hypertension I10 ; Acquired hypothyroidism E03.9 and Low back pain M54.5 [facility] [id number] [place] [address] 69517- 8171 Aug, [facility] [facility] [id number] [place] [address] 25367- 0828 Aug, [facility] [facility] [id number] [place] [address] 45995- 7923 Jul, [facility], [place] [id number] [place] [address] 30578- 8772 Jul, Coronary artery disease involving egegik coronary artery of egegik heart without angina pectoris I25.10 [facility], [place] [id number] [place] [address] 13809- 0768 Jun, Low back pain M54.5 and Essential hypertension I10 [facility], [place] [id number] [place] [address] 42438- 8540 Jun, Head cold J00 [facility], [place] [id number] [place] [address] 62906- 1787 May, [facility], [place] [id number] [place] [address] 86738- 1328 14 Apr, 2017 Type 2 diabetes mellitus without complication, without long- term current use of insulin E11.9 [facility], [place] [id number] [place] [address] 30885- 4200 12 Apr, 2017 Type 2 diabetes mellitus without complication, without long- term current use of insulin E11.9 [facility], [place] [id number] [place] [address] 62041- 5188 Apr, Essential hypertension I10 [facility], [place] [address] [place] [address] 80736- 2480 Mar, [facility], [place] [id number] [place] [address] 85988- 0078 Mar, [facility], [place] [id number] [place] [address] 67993- 8114 Mar, Osteoarthritis of spine with radiculopathy, cervical region M47.22 [facility], [place] [id number] [place] [address] 11786- 4980 Mar, [facility], [place] [address] [place] [address] 98854- 9161 Feb, [address] [place] [address] [place] [address] 52391- 2801 Feb, Screening breast examination Z12.31 ; Bilateral carotid artery disease I77.9 ; Low back pain M54.5 ; Osteoarthritis of spine with radiculopathy, cervical region M47.22 ; Renal insufficiency N28.9 ; Vitamin D deficiency E55.9 ; Restless leg syndrome G25.81 ; Acquired hypothyroidism E03.9 ; Coronary artery disease involving egegik coronary artery of egegik heart without angina pectoris I25.10 ; Vertigo R42 ; Essential hypertension I10 ; Type 2 diabetes mellitus with diabetic chronic kidney disease E11.22 and Encounter for immunization Z23 [address] [place] 30462- 0652 Jan, [place] [id number] [place] [address] 80128- 6890 Jan, Type 2 diabetes mellitus without complication, without long- term current use of insulin E11.9 ; Low back pain M54.5 ; Osteoarthritis of spine with radiculopathy, cervical region M47.22 ; Renal insufficiency N28.9 ; Vitamin D deficiency E55.9 ; Restless leg syndrome G25.81 ; Bilateral carotid artery disease I77.9 ; Acquired hypothyroidism E03.9 ; Coronary artery disease involving egegik coronary artery of egegik heart without angina pectoris I25.10 and Lipoma of back D17.1 [place] [id number] [place] [address] 57577- 9696 Jan, Type 2 diabetes mellitus without complication, without long- term current use of insulin E11.9 [facility] [id number] [place] [address] 00148- 6258 Dec, Osteoarthritis of spine with radiculopathy, cervical region M47.22 [place] [id number] [place] [address] 61152- 9059 Nov, [place] [id number] [place] [address] 00773- 3658 Nov, Low back pain M54.5 and Osteoarthritis of spine with radiculopathy, cervical region M47.22 [address] [place] [address] [place] [address] 89604- 8462 Nov, Osteoarthritis of spine with radiculopathy, cervical [...] hypothyroidism E03.9 ; Coronary artery disease involving egegik coronary artery of egegik heart without angina pectoris I25.10 ; Hypercalcemia E83.52 and Left foot pain M79.672 [place] [id number] [place] [address] 69038- 8895 Oct, [address] [address] 82740- 2297 Oct, Osteoarthritis of spine with radiculopathy, cervical region M47.22 [place] [id number] [place] [address] 46470- 1987 Oct, Abnormal blood chemistry R79.9 [place] [id number] [place] [address] 13845- 6933 September, Osteoarthritis of spine with radiculopathy, cervical region M47.22 ; Essential hypertension I10 ; Renal insufficiency N28.9 ; Type 2 diabetes mellitus without complication, without long-term current use of insulin E11.9 ; Vitamin D deficiency E55.9 ; Paresthesia of both hands R20.2 ; Low back pain M54.5 ; Restless leg syndrome G25.81 and Dizziness R42 [address] [id number] [place] [address] 92038- 5161 September, [place] [id number] [place] [address] 43955- 0239 September, [place] [address] [place] [address]- 5290 September, [facility], [place] [address] [address]- 2698 September, [facility], [place] [address] [address]- 4041 Aug, [facility], [place] [id number] [place] [address] 93167- 3281 Aug, [facility], [place] [id number] [place] [address] 71944- 8902 Aug, [facility], [place] [id number] [place] [address] 12196- 2914 Aug, [facility], [place] [id number] [place] [address] 05555- 8465 Aug, Osteoarthritis of spine with radiculopathy, cervical region M47.22 [place] [address] [place] [address] 78949- 8416 Aug, Essential hypertension I10 ; Renal insufficiency N28.9 ; Type 2 diabetes mellitus without complication, without long-term current use of insulin E11.9 ; Vitamin D deficiency E55.9 ; Paresthesia of both hands R20.2 ; Low back pain M54.5 ; Restless leg syndrome G25.81 ; Osteoarthritis of spine with radiculopathy, cervical region M47.22 and Dizziness R42 [facility], [place] [address] [address]- 5253 Jul, [facility], [place] [address] [address]- 5575 Jul, [facility], [place] [id number] [place] [address] 65468- 7319 Jul, Essential hypertension I10 ; Paresthesia of both hands R20.2 ; Upper respiratory tract infection, unspecified type J06.9 and Low back pain M54.5 [facility], [place] [address] [address]- 7009 Jul, [facility], [place] [address] [address]- 3400 Jul, [facility], [place] [address] [address]- 3116 Jul, Renal insufficiency N28.9 ; Vitamin D deficiency E55.9 ; Type 2 diabetes mellitus without complication, without long-term current use of insulin E11.9 ; Restless leg syndrome G25.81 ; Type 2 diabetes mellitus with diabetic chronic kidney disease E11.22 and Chronic kidney disease, stage 1 N18.1 [facility], [place] [address] [address]- 2884 Jul, Renal insufficiency N28.9 [facility], [place] [address] [address]- 2619 Jun, [facility], [place] [address] [address]- 0488 Jun, Renal insufficiency N28.9 ; Vitamin D deficiency E55.9 ; Type 2 diabetes mellitus without complication, without long-term current use of insulin E11.9 ; Restless leg syndrome G25.81 ; Type 2 diabetes mellitus with diabetic chronic kidney disease E11.22 and Chronic kidney disease, stage 1 N18.1 [facility], [place] [address] [address]- 7753 Jun, [facility], [place] [address] [address]- 4124 May, [facility], [place] [address] [address]- 4029 May, [facility], [place] [address] [address]- 3227 May, [facility], [place] [address] [address] 7842 May, [facility], [place] [address] [address]- 7232 May, [facility], [place] [address] [address]- 4073 Apr, Acquired hypothyroidism E03.9 ; Essential hypertension I10 ; Type 2 diabetes mellitus without complication, without long-term current use of insulin E11.9 and Mixed hyperlipidemia E78.2 [facility], [place] [address] [address]- 6566 Apr, Type 2 diabetes mellitus without complication, without long- term current use of insulin E11.9 ; Coronary artery disease involving e[place]gik coronary artery of egegik heart without angina pectoris I25.10 ; Essential hypertension I10 and Acquired hypothyroidism E03.9 [address] [place] [id number] [place] [address] 98476- 8910 Apr, Cellulitis of left lower extremity L03.116 [address] [id number] [place] [address] 16177- 9787 Apr, Essential hypertension I10 ; Mixed hyperlipidemia E78.2 ; Type 2 diabetes mellitus without complication, without long-term current use of insulin E11.9 ; Acquired hypothyroidism E03.9 ; Cellulitis of left lower extremity L03.116 and Coronary artery disease involving egegik coronary artery of egegik heart without angina pectoris I25.10 [facility], [place] [address] [place] [address] 68581- 3443 Apr, [facility] [address] [address] -1585 Dec, Dermatitis L30.9 [facility], [place] [id number] [place] [address] 61893- 2740 Aug, [facility], [place] [address] [address]- 1233 Aug, [facility], [place] [id number] [place] [address] 71025- 1590 Jan, [facility], [place] [address] [address]- 4163 Jan, [facility], [place] [address] [address]- 3556 Jun, [facility], [place] [address] [address]- 0566 May, [facility], [place] [address] [address]- 3466 May, [facility], [place] [address] [address]- 5045 May, [facility], [place] [address] [address]- 7355 Apr, [facility], [place] [address] [place] [address] 47806- 2136 Feb, [facility], [place] [address] [address]- 0376 Feb, [facility], [place] [address] [address]- 7523 Nov, [facility], [place] [address] [address]- 2194 Nov, [facility], [place] [address] 6319 Nov, [facility], [place] [address] [address]- 5466 Nov, [facility], [place] [address] [address]- 9402 Nov, [facility], [place] [id number] 7495 Nov, [facility], [place] [address] 7919 Nov, IMMUNIZATIONS No Known Immunizations SOCIAL HISTORY Never Assessed REASON FOR VISIT PLAN OF CARE VITAL SIGNS MEDICATIONS Medication Instructions Dosage Frequency Start Date End Date Duration Status Requip 0.5 MG Orally Once a day 1 tablet 24h Active Potassium Chloride Corie ER 10 MEQ Orally Once a day 1 tablet with food 24h Active RESULTS No Results PROCEDURES No Known [...]
--- OUTSIDE RECORDS SUMMARY | 2018-04-05 19:56 | XMS REPORT ---
Author Author JASIEL KENDRICK [facility] Address [address] [place] [address] Care Team Providers Care Melangeur Operator Name Role Phone JOANIE KENDRICKTA Unavailable PROBLEMS Type Condition ICD9-CM Code XQZ65-DV Code Onset Dates Condition Status SNOMED Code Problem Mixed hyperlipidemia E78.2 Active 882925895 Problem Restless leg syndrome G25.81 Active 23420792 Problem Acquired hypothyroidism E03.9 Active 141745793 Problem Hypercalcemia E83.52 Active 18035934 Problem Bilateral carotid artery disease I77.9 Active 378538295 Problem Chronic kidney disease, stage 1 N18.1 Active 307723775 Problem Type 2 diabetes mellitus with diabetic chronic kidney disease E11.22 Active 92548485 Problem Osteoarthritis of spine with radiculopathy, cervical region M47.22 Active 933801839 Problem Low back pain M54.5 Active 812877039 Problem Vitamin D deficiency E55.9 Active 24628448 Problem Coronary artery disease involving [place] coronary artery of [place] heart without angina pectoris I25.10 Active 2326879118932 Problem Essential hypertension I10 Active 50452774 Problem Renal insufficiency N28.9 Active 316273866 Problem Type 2 diabetes mellitus without complication, without long-term current use of insulin E11.9 Active 940510691 ALLERGIES No Information ENCOUNTERS Encounter Location Date Diagnosis [facility] [id number], [place] [address] Jan, [facility] [id number] [place] [address] 03254- 7553 Jan, Coronary artery disease involving [place] coronary artery of [place] heart without angina pectoris I25.10 [facility] [id number], [place] [address]28 Jan, Low back pain M54.5 and Coronary artery disease involving [place] coronary artery of [place] heart without angina pectoris I25.10 [facility] [id number] [place] [address] 88577- 8575 Dec, Acquired hypothyroidism E03.9 and Vertigo R42 [facility] [id number] [place] [address] 85272- 1299 Dec, Low back pain M54.5 and Dermatitis L30.9 [facility] [id number] [place] [address] 48580- 5525 Nov, Coronary artery disease involving [place] coronary artery of [place] heart without angina pectoris I25.10 [facility] [id number] [place] [address] 65211- 8525 Nov, Acquired hypothyroidism E03.9 and Vertigo R42 [facility] [id number] [place] [address] 82746- 0768 Nov, Encounter for well woman exam Z01.419 ; Screening for osteoporosis Z13.820 and Screening for colon cancer Z12.11 [facility] [id number] [place] [address] 07122- 4097 Oct, Coronary artery disease involving [place] coronary artery of [place] heart without angina pectoris I25.10 [facility] [id number] [place] [address] 74309- 9968 September, [facility] [id number] [place] [address] 47724- 5501 September, [facility] [id number] [place] [address] 15461- 9507 Aug, Type 2 diabetes mellitus without complication, without long- term current use of insulin E11.9 ; Essential hypertension I10 ; Acquired hypothyroidism E03.9 and Low back pain M54.5 [facility] [id number] [place] [address] 95312- 9110 Aug, [facility] [id number] [place] [address] 77345- 4369 Aug, [facility] [id number] [place] [address] 22370- 3985 Jul, [facility] [id number] [place] [address] 91186- 2851 Jul, Coronary artery disease involving [place] coronary artery of [place] heart without angina pectoris I25.10 [facility] [id number] [place] [address] 04375- 7461 Jun, Low back pain M54.5 and Essential hypertension I10 [facility] [id number] [place] [address] 35868- 6918 Jun, Head cold J00 [facility] [id number] [place] [address] 79944- 2092 May, [facility] [id number] [place] [address] 65873- 3240 14 Apr, 2017 Type 2 diabetes mellitus without complication, without long- term current use of insulin E11.9 [facility] [id number] [place] [address] 65873- 5002 12 Apr, 2017 Type 2 diabetes mellitus without complication, without long- term current use of insulin E11.9 [facility] [id number] [place] [address] 01028- 9001 Apr, Essential hypertension I10 [facility] [id number] [place] [address] 13709- 4907 Mar, [facility] [id number] [place] [address] 02972- 4258 Mar, [facility] [id number] [place] [address] 38826- 1441 Mar, Osteoarthritis of spine with radiculopathy, cervical region M47.22 [facility] [id number] [place] [address] 48751- 7828 Mar, [facility] [id number] [place] [address] 18802- 5200 Feb, [facility] [address] [place] [address] 27848- 6232 Feb, Screening breast examination Z12.31 ; Bilateral carotid artery disease I77.9 ; Low back pain M54.5 ; Osteoarthritis of spine with radiculopathy, cervical region M47.22 ; Renal insufficiency N28.9 ; Vitamin D deficiency E55.9 ; Restless leg syndrome G25.81 ; Acquired hypothyroidism E03.9 ; Coronary artery disease involving [place] coronary artery of [place] heart without angina pectoris I25.10 ; Vertigo R42 ; Essential hypertension I10 ; Type 2 diabetes mellitus with diabetic chronic kidney disease E11.22 and Encounter for immunization Z23 [facility] [address] 85824- 2112 Jan, [facility] [id number] [place] [address] 45807- 2966 Jan, Type 2 diabetes mellitus without complication, without long- term current use of insulin E11.9 ; Low back pain M54.5 ; Osteoarthritis of spine with radiculopathy, cervical region M47.22 ; Renal insufficiency N28.9 ; Vitamin D deficiency E55.9 ; Restless leg syndrome G25.81 ; Bilateral carotid artery disease I77.9 ; Acquired hypothyroidism E03.9 ; Coronary artery disease involving [place] coronary artery of [place] heart without angina pectoris I25.10 and Lipoma of back D17.1 [facility] [id number] [place] [address] 52387- 1137 Jan, Type 2 diabetes mellitus without complication, without long- term current use of insulin E11.9 [facility] [id number] [place] [address] 35282- 8444 Dec, Osteoarthritis of spine with radiculopathy, cervical region M47.22 [facility] [id number] [place] [address] 66059- 6423 Nov, [facility] [id number] [place] [address] 73507- 7915 Nov, Low back pain M54.5 and Osteoarthritis of spine with radiculopathy, cervical region M47.22 [facility] [id number] [place] [address] 87175- 3029 Nov, Osteoarthritis of spine with radiculopathy, cervical [...] hypothyroidism E03.9 ; Coronary artery disease involving [place] coronary artery of [place] heart without angina pectoris I25.10 ; Hypercalcemia E83.52 and Left foot pain M79.672 [facility] [id number] [place] [address] 06759- 7351 Oct, [facility] [address] 10128- 7340 Oct, Osteoarthritis of spine with radiculopathy, cervical region M47.22 [facility] [id number] [place] [address] 74391- 5157 Oct, Abnormal blood chemistry R79.9 [facility] [id number] [place] [address] 51664- 0356 September, Osteoarthritis of spine with radiculopathy, cervical region M47.22 ; Essential hypertension I10 ; Renal insufficiency N28.9 ; Type 2 diabetes mellitus without complication, without long-term current use of insulin E11.9 ; Vitamin D deficiency E55.9 ; Paresthesia of both hands R20.2 ; Low back pain M54.5 ; Restless leg syndrome G25.81 and Dizziness R42 [facility] [id number] [place] [address] 70307- 9267 September, [facility] [id number] [place] [address] 62961- 1970 September, [facility] [place] [address] [place] [address]- 7026 September, [facility] [address], [place] [address] 9934 September, [facility] [address], [place] [address]- 2869 Aug, [facility] [id number] [place] [address] 76595- 1221 Aug, [facility] [id number] [place] [address] 66479- 7472 Aug, [facility] [id number] [place] [address] 34604- 1478 Aug, [facility] [id number] [place] [address] 38106- 6638 Aug, Osteoarthritis of spine with radiculopathy, cervical region M47.22 [facility] [id number] [place] [address] 15206- 9275 Aug, Essential hypertension I10 ; Renal insufficiency N28.9 ; Type 2 diabetes mellitus without complication, without long-term current use of insulin E11.9 ; Vitamin D deficiency E55.9 ; Paresthesia of both hands R20.2 ; Low back pain M54.5 ; Restless leg syndrome G25.81 ; Osteoarthritis of spine with radiculopathy, cervical region M47.22 and Dizziness R42 [facility] [address], [place] [address]- 6591 Jul, [facility] [address], [place] [address] 1977 Jul, [facility] [id number] [place] [address] 85542- 2245 Jul, Essential hypertension I10 ; Paresthesia of both hands R20.2 ; Upper respiratory tract infection, unspecified type J06.9 and Low back pain M54.5 [facility] [address] [address]- 4733 Jul, [facility] [address], [place] [address]- 0690 Jul, [facility] [address], [place] [address]- 0636 Jul, Renal insufficiency N28.9 ; Vitamin D deficiency E55.9 ; Type 2 diabetes mellitus without complication, without long-term current use of insulin E11.9 ; Restless leg syndrome G25.81 ; Type 2 diabetes mellitus with diabetic chronic kidney disease E11.22 and Chronic kidney disease, stage 1 N18.1 [facility] [address], [place] [address]- 2857 Jul, Renal insufficiency N28.9 [facility] [address], [place] [address]- 6671 Jun, [facility] [address], [place] [address]- 0406 Jun, Renal insufficiency N28.9 ; Vitamin D deficiency E55.9 ; Type 2 diabetes mellitus without complication, without long-term current use of insulin E11.9 ; Restless leg syndrome G25.81 ; Type 2 diabetes mellitus with diabetic chronic kidney disease E11.22 and Chronic kidney disease, stage 1 N18.1 [facility] [address], [place] [address]- 9537 Jun, [facility] [address], [place] [address]- 4459 May, [facility] [address], [place] [address]- 0041 May, [facility] [address], [place] [address]- 1005 May, [facility] [address] [address] 5917 May, [facility] [address], [place] [address]- 4268 May, [facility] [address], [place] [address]- 5901 Apr, Acquired hypothyroidism E03.9 ; Essential hypertension I10 ; Type 2 diabetes mellitus without complication, without long-term current use of insulin E11.9 and Mixed hyperlipidemia E78.2 [facility] [address], [place] [address]- 5664 Apr, Type 2 diabetes mellitus without complication, without long- term current use of insulin E11.9 ; Coronary artery disease involving [place] coronary artery of [place] heart without angina pectoris I25.10 ; Essential hypertension I10 and Acquired hypothyroidism E03.9 [facility] [id number] [place] [address] 06437- 3137 Apr, Cellulitis of left lower extremity L03.116 [facility] [id number] [place] [address] 84759- 2060 Apr, Essential hypertension I10 ; Mixed hyperlipidemia E78.2 ; Type 2 diabetes mellitus without complication, without long-term current use of insulin E11.9 ; Acquired hypothyroidism E03.9 ; Cellulitis of left lower extremity L03.116 and Coronary artery disease involving [place] coronary artery of [place] heart without angina pectoris I25.10 [facility] [id number] [place] [address] 41933- 5593 Apr, [facility] [address], [place] [address]80 Dec, Dermatitis L30.9 [facility] [id number] [place] [address] 73660- 9774 Aug, [facility] [address], [place] [address]- 5886 Aug, [facility] [id number] [place] [address] 98097- 9237 Jan, [facility] [address], [place] [address]- 7206 Jan, [facility] [address] [place] [address] 2546 Jun, [facility] [address], [place] [address]- 0346 May, [facility] [address], [place] [address]- 6016 May, [facility] [address], [place] [address]- 7196 May, [facility] [address], [place] [address]- 2254 Apr, [facility] [address], [place] [address]- 9436 Feb, [facility] [address], [place] [address]- 4046 Feb, [facility] [address], [place] [address]- 4127 Nov, [facility] [address], [place] [address]- 2665 Nov, [facility] [address] 2037 Nov, [facility] [address], [place] [address]- 8860 Nov, [facility] [address], [place] [address]- 9447 Nov, [facility] [id number], [place] [address]- 1009 Nov, [facility] [address] 3983 Nov, IMMUNIZATIONS No Known Immunizations SOCIAL HISTORY Never Assessed REASON FOR VISIT Repository Medication PLAN OF CARE VITAL SIGNS MEDICATIONS Medication Instructions Dosage Frequency Start Date End Date Duration Status Isosorbide Mononitrate 60 mg Orally Once a day 1 tablet 24h 90 days Active RESULTS No Results PROCEDURES No Known [...]
--- OUTSIDE RECORDS SUMMARY | 2018-04-05 19:56 | XMS REPORT ---
Author Author JASIEL KENDRICK [facility] Address [address] [place] [address] Care Team Providers Care Front Tender Name Role Phone JOANIE KENDRICKTA Unavailable PROBLEMS Type Condition ICD9-CM Code ABU89-PO Code Onset Dates Condition Status SNOMED Code Problem Mixed hyperlipidemia E78.2 Active 174358173 Problem Restless leg syndrome G25.81 Active 01142205 Problem Acquired hypothyroidism E03.9 Active 378595800 Problem Hypercalcemia E83.52 Active 81148342 Problem Bilateral carotid artery disease I77.9 Active 091080167 Problem Chronic kidney disease, stage 1 N18.1 Active 259433169 Problem Type 2 diabetes mellitus with diabetic chronic kidney disease E11.22 Active 17890217 Problem Osteoarthritis of spine with radiculopathy, cervical region M47.22 Active 030331684 Problem Low back pain M54.5 Active 331882180 Problem Vitamin D deficiency E55.9 Active 04468795 Problem Coronary artery disease involving [place] coronary artery of [place] heart without angina pectoris I25.10 Active 9770290509105 Problem Essential hypertension I10 Active 62554031 Problem Renal insufficiency N28.9 Active 623458233 Problem Type 2 diabetes mellitus without complication, without long-term current use of insulin E11.9 Active 010742404 ALLERGIES No Information ENCOUNTERS Encounter Location Date Diagnosis [facility] [id number], [place] [address] Jan, [facility] [id number] [place] [address]3873- 8446 Jan, Coronary artery disease involving [place] coronary artery of [place] heart without angina pectoris I25.10 [facility] [id number], [place] [address] Jan, Low back pain M54.5 and Coronary artery disease involving [place] coronary artery of [place] heart without angina pectoris I25.10 [facility] [address] [place] [address] 61987- 0210 Dec, Acquired hypothyroidism E03.9 and Vertigo R42 [facility] [id number] [place] [address] 20418- 5661 Dec, Low back pain M54.5 and Dermatitis L30.9 [facility] [id number] [place] [address] 55698- 3864 Nov, Coronary artery disease involving [place] coronary artery of [place] heart without angina pectoris I25.10 [facility] [id number] [place] [address] 01399- 4634 Nov, Acquired hypothyroidism E03.9 and Vertigo R42 [facility] [id number] [place] [address] 53713- 2211 Nov, Encounter for well woman exam Z01.419 ; Screening for osteoporosis Z13.820 and Screening for colon cancer Z12.11 [facility] [id number] [place] [address] 65705- 2099 Oct, Coronary artery disease involving [place] coronary artery of [place] heart without angina pectoris I25.10 [facility] [address] [place] [address] 85050- 6779 September, [facility] [id number] [place] [address] 07391- 8084 September, [facility] [id number] [place] [address] 60439- 8283 Aug, Type 2 diabetes mellitus without complication, without long- term current use of insulin E11.9 ; Essential hypertension I10 ; Acquired hypothyroidism E03.9 and Low back pain M54.5 [facility] [id number] [place] [address] 38793- 0072 Aug, [facility] [id number] [place] [address] 89676- 3122 Aug, [facility] [id number] [place] [address] 58894- 3504 Jul, [facility] [id number] [place] [address] 07921- 9562 Jul, Coronary artery disease involving [place] coronary artery of [place] heart without angina pectoris I25.10 [facility] [id number] [place] [address] 26190- 8394 Jun, Low back pain M54.5 and Essential hypertension I10 [facility] [id number] [place] [address] 11807- 1861 Jun, Head cold J00 [facility] [id number] [place] [address] 31901- 5342 May, [facility] [id number] [place] [address] 38052- 0852 14 Apr, 2017 Type 2 diabetes mellitus without complication, without long- term current use of insulin E11.9 [facility] [id number] [place] [address] 01197- 2844 12 Apr, 2017 Type 2 diabetes mellitus without complication, without long- term current use of insulin E11.9 [facility] [id number] [place] [address] 16640- 5230 Apr, Essential hypertension I10 [facility] [address] [place] [address] 03605- 3966 Mar, [facility] [id number] [place] [address] 57275- 1093 Mar, [facility] [id number] [place] [address] 06286- 5100 Mar, Osteoarthritis of spine with radiculopathy, cervical region M47.22 [facility] [id number] [place] [address] 81724- 1426 Mar, [facility] [id number] [place] [address] 63697- 1450 Feb, [facility] [address] [place] [address] 56163- 8423 Feb, Screening breast examination Z12.31 ; Bilateral carotid artery disease I77.9 ; Low back pain M54.5 ; Osteoarthritis of spine with radiculopathy, cervical region M47.22 ; Renal insufficiency N28.9 ; Vitamin D deficiency E55.9 ; Restless leg syndrome G25.81 ; Acquired hypothyroidism E03.9 ; Coronary artery disease involving [place] coronary artery of [place] heart without angina pectoris I25.10 ; Vertigo R42 ; Essential hypertension I10 ; Type 2 diabetes mellitus with diabetic chronic kidney disease E11.22 and Encounter for immunization Z23 [facility] [facility] [address] 17664- 1285 Jan, [facility] [id number] [place] [address] 43915- 3972 Jan, Type 2 diabetes mellitus without complication, without long- term current use of insulin E11.9 ; Low back pain M54.5 ; Osteoarthritis of spine with radiculopathy, cervical region M47.22 ; Renal insufficiency N28.9 ; Vitamin D deficiency E55.9 ; Restless leg syndrome G25.81 ; Bilateral carotid artery disease I77.9 ; Acquired hypothyroidism E03.9 ; Coronary artery disease involving [place] coronary artery of [place] heart without angina pectoris I25.10 and Lipoma of back D17.1 [facility] [facility] [id number] [place] [address] 66651- 9961 Jan, Type 2 diabetes mellitus without complication, without long- term current use of insulin E11.9 [facility] [id number] [place] [address] 24863- 9662 Dec, Osteoarthritis of spine with radiculopathy, cervical region M47.22 [facility] [id number] [place] [address] 21704- 7917 Nov, [facility] [id number] [place] [address] 23428- 6888 Nov, Low back pain M54.5 and Osteoarthritis of spine with radiculopathy, cervical region M47.22 [facility] [address] [place] [address] 47879- 5518 Nov, Osteoarthritis of spine with radiculopathy, cervical [...] hypothyroidism E03.9 ; Coronary artery disease involving [place] coronary artery of [place] heart without angina pectoris I25.10 ; Hypercalcemia E83.52 and Left foot pain M79.672 [facility] [facility] [id number] [place] [address] 94616- 4479 Oct, [facility] [address] 24566- 2842 Oct, Osteoarthritis of spine with radiculopathy, cervical region M47.22 [facility] [facility] [id number] [place] [address] 93699- 5778 Oct, Abnormal blood chemistry R79.9 [facility] [id number] [place] [address] 99591- 5160 September, Osteoarthritis of spine with radiculopathy, cervical region M47.22 ; Essential hypertension I10 ; Renal insufficiency N28.9 ; Type 2 diabetes mellitus without complication, without long-term current use of insulin E11.9 ; Vitamin D deficiency E55.9 ; Paresthesia of both hands R20.2 ; Low back pain M54.5 ; Restless leg syndrome G25.81 and Dizziness R42 [facility] [facility] [id number] [place] [address] 98989- 9253 September, [facility] [id number] [place] [address] 80464- 6955 September, [place] [address] [place] [address]- 6615 September, [facility] [address], [place] [address] September, [facility] [address], [place] [address]- 0289 Aug, [facility] [id number] [place] [address] 44859- 9958 Aug, [facility] [id number] [place] [address] 10652- 8256 Aug, [facility] [id number] [place] [address] 65743- 1238 Aug, [facility] [id number] [place] [address] 44643- 5646 Aug, Osteoarthritis of spine with radiculopathy, cervical region M47.22 [facility] [address] [place] [address] 59248- 6920 Aug, Essential hypertension I10 ; Renal insufficiency N28.9 ; Type 2 diabetes mellitus without complication, without long-term current use of insulin E11.9 ; Vitamin D deficiency E55.9 ; Paresthesia of both hands R20.2 ; Low back pain M54.5 ; Restless leg syndrome G25.81 ; Osteoarthritis of spine with radiculopathy, cervical region M47.[address] [facility] [address] [address] 4089 Jul, [facility] [address] [address]- 0858 Jul, [facility] [id number] [place] [address] 58697- 5699 Jul, Essential hypertension I10 ; Paresthesia of both hands R20.2 ; Upper respiratory tract infection, unspecified type J06.9 and Low back pain M54.5 [facility] [address], [place] [address]- 0990 Jul, [facility] [address], [place] [address]- 1640 Jul, [facility] [address], [place] [address]- 0796 Jul, Renal insufficiency N28.9 ; Vitamin D deficiency E55.9 ; Type 2 diabetes mellitus without complication, without long-term current use of insulin E11.9 ; Restless leg syndrome G25.81 ; Type 2 diabetes mellitus with diabetic chronic kidney disease E11.22 and Chronic kidney disease, stage [address] [facility] [address], [place] [address]- 6584 Jul, Renal insufficiency N28.9 [facility] [address], [place] [address]- 2382 Jun, [facility] [address], [place] [address]- 4268 Jun, Renal insufficiency N28.9 ; Vitamin D deficiency E55.9 ; Type 2 diabetes mellitus without complication, without long-term current use of insulin E11.9 ; Restless leg syndrome G25.81 ; Type 2 diabetes mellitus with diabetic chronic kidney disease E11.22 and Chronic kidney disease, stage [address] [facility] [address], [place] [address]- 6320 Jun, [facility] [address], [place] [address]- 8982 May, [facility] [address], [place] [address]- 4535 May, [facility] [address], [place] [address]- 4740 May, [facility] [address] [address] 1261 May, [facility] [address], [place] [address]- 9810 May, [facility] [address], [place] [address]- 7456 Apr, Acquired hypothyroidism E03.9 ; Essential hypertension I10 ; Type 2 diabetes mellitus without complication, without long-term current use of insulin E11.9 and Mixed hyperlipidemia E78.2 [facility] [address], [place] [address]- 0554 Apr, Type 2 diabetes mellitus without complication, without long- term current use of insulin E11.9 ; Coronary artery disease involving [place] coronary artery of [place] heart without angina pectoris I25.10 ; Essential hypertension I10 and Acquired hypothyroidism E03.9 [facility] [facility] [address] [place] [address] 14019- 1728 Apr, Cellulitis of left lower extremity L03.116 [facility] [facility] [address] [place] [address] 99208- 9074 Apr, Essential hypertension I10 ; Mixed hyperlipidemia E78.2 ; Type 2 diabetes mellitus without complication, without long-term current use of insulin E11.9 ; Acquired hypothyroidism E03.9 ; Cellulitis of left lower extremity L03.116 and Coronary artery disease involving [place] coronary artery of [place] heart without angina pectoris I25.10 [facility] [address] [place] [address] 07760- 0930 Apr, [facility] [address], [place] [address] -6275 Dec, Dermatitis L30.9 [facility] [address] [place] [address] 83460- 2727 Aug, [facility] [address], [place] [address]- 7232 Aug, [facility] [id number] [place] [address] 60939- 4285 Jan, [facility] [address], [place] [address]- 6379 Jan, [facility] [address] [place] [address]- 7066 Jun, [facility] [address] [facility] [id number], [place] [address]- 1686 May, [facility] [address] [facility] [id number], [place] [address]- 3556 May, [facility] [address] [facility] [id number], [place] [address]- [address]3 May, [facility] [address] [facility] [id number], [place] [address]- 3877 Apr, [facility] [address], [place] [address]- 6406 Feb, [facility] [address] [facility] [id number], [place] [address]- 5636 Feb, [facility] [address], [place] [address]- 9108 Nov, [facility] [address], [place] [address]- 8993 Nov, [facility] [address], [place] [address]- 9447 Nov, [facility] [address], [place] [address]- 8512 Nov, [facility] [address], [place] [address]- 0338 Nov, [facility] [id number], [place] [address]- 8175 Nov, [facility] [id number] 9568 Nov, IMMUNIZATIONS No Known Immunizations SOCIAL HISTORY Never Assessed REASON FOR VISIT Repository meds PLAN OF CARE VITAL SIGNS MEDICATIONS Medication Instructions Dosage Frequency Start Date End Date Duration Status Gabapentin 300 MG Orally three times a day 1 capsule 8h 30 days Active Clopidogrel Bisulfate 75 MG Orally Once a day 1 tablet 24h 30 days Active RESULTS No Results PROCEDURES No [...]
--- OUTSIDE RECORDS SUMMARY | 2018-04-05 19:57 | XMS REPORT ---
Author Author JASIEL KENDRICK [facility] Address [address] [place] [address] Care Team Providers Care Deputy Program Manager Name Role Phone JOANIE KENDRICKTA Unavailable PROBLEMS Type Condition ICD9-CM Code FXL73-SA Code Onset Dates Condition Status SNOMED Code Problem Mixed hyperlipidemia E78.2 Active 715049871 Problem Restless leg syndrome G25.81 Active 87381097 Problem Acquired hypothyroidism E03.9 Active 013264035 Problem Hypercalcemia E83.52 Active 93725088 Problem Bilateral carotid artery disease I77.9 Active 144957285 Problem Chronic kidney disease, stage 1 N18.1 Active 157801208 Problem Type 2 diabetes mellitus with diabetic chronic kidney disease E11.22 Active 91659751 Problem Osteoarthritis of spine with radiculopathy, cervical region M47.22 Active 513908935 Problem Low back pain M54.5 Active 438433657 Problem Vitamin D deficiency E55.9 Active 38040602 Problem Coronary artery disease involving shawnee coronary artery of shawnee heart without angina pectoris I25.10 Active 5210813117660 Problem Essential hypertension I10 Active 44258984 Problem Renal insufficiency N28.9 Active 777190318 Problem Type 2 diabetes mellitus without complication, without long-term current use of insulin E11.9 Active 366999521 ALLERGIES No Information ENCOUNTERS Encounter Location Date Diagnosis [facility] [id number] [place] [address]00- 1294 Jan, Coronary artery disease involving shawnee coronary artery of shawnee heart without angina pectoris I25.10 [facility] [id number] [place] [address] 84270- 2982 Jan, Low back pain M54.5 and Coronary artery disease involving shawnee coronary artery of shawnee heart without angina pectoris I25.10 [facility] [id number] [place] [address] 56963- 5359 Dec, Acquired hypothyroidism E03.[address] [facility] [id number] [place] [address] 74674- 8504 Dec, Low back pain M54.[address] [facility] [id number] [place] [address] 11908- 0527 Nov, Coronary artery disease involving shawnee coronary artery of shawnee heart without angina pectoris I25.10 [facility] [address] [address]- 2292 Nov, Acquired hypothyroidism E03.9 and Vertigo R42 [facility] [address] 36834- 1226 Nov, Encounter for well woman exam Z01.419 ; Screening for osteoporosis Z13.820 and Screening for colon cancer Z12.11 [facility] [address] 05764- 7558 Oct, Coronary artery disease involving shawnee coronary artery of shawnee heart without angina pectoris I25.10 [facility] [id number] [place] [address] 25290- 6626 September, [facility] [id number] [place] [address] 36975- 5864 September, [facility] [id number] [place] [address] 95260- 0501 Aug, Type 2 diabetes mellitus without complication, without long- term current use of insulin E11.9 ; Essential hypertension I10 ; Acquired hypothyroidism E03.9 and Low back pain M54.5 [facility] [id number] [place] [address] 46090- 3045 Aug, [facility] [address] 46690- 5184 Aug, [facility] [id number] [place] [address] 20971- 4443 Jul, [facility] [id number] [place] [address] 70483- 5315 Jul, Coronary artery disease involving shawnee coronary artery of shawnee heart without angina pectoris I25.10 [facility] [id number] [place] [address] 45780- 8019 Jun, Low back pain M54.5 and Essential hypertension I10 [facility] [id number] [place] [address] 03100- 0917 Jun, Head cold J00 [facility] [id number] [place] [address] 01727- 9369 May, [facility] [id number] [place] [address] 63254- 0273 Apr, Type 2 diabetes mellitus without complication, without long- term current use of insulin E11.9 [facility] [id number] [place] [address] 66698- 9292 12 Apr, 2017 Type 2 diabetes mellitus without complication, without long- term current use of insulin E11.9 [facility] [id number] [place] [address] 21843- 3830 Apr, Essential hypertension I10 [facility] [id number] [place] [address] 37263- 5402 Mar, [facility] [id number] [place] [address] 17165- 5596 Mar, [facility] [id number] [place] [address] 01640- 7213 Mar, Osteoarthritis of spine with radiculopathy, cervical region M47.22 [facility] [id number] [place] [address] 37217- 4517 Mar, [facility] [id number] [place] [address] 90592- 4659 Feb, [facility] [address] [place] [address] 35015- 7945 Feb, Screening breast examination Z12.31 ; Bilateral carotid artery disease I77.9 ; Low back pain M54.5 ; Osteoarthritis of spine with radiculopathy, cervical region M47.22 ; Renal insufficiency N28.9 ; Vitamin D deficiency E55.9 ; Restless leg syndrome G25.81 ; Acquired hypothyroidism E03.9 ; Coronary artery disease involving shawnee coronary artery of shawnee heart without angina pectoris I25.10 ; Vertigo R42 ; Essential hypertension I10 ; Type 2 diabetes mellitus with diabetic chronic kidney disease E11.22 and Encounter for immunization Z23 [facility] [address] 74766- 5519 Jan, [facility] [address] 40048- 6584 Jan, Type 2 diabetes mellitus without complication, without long- term current use of insulin E11.9 ; Low back pain M54.5 ; Osteoarthritis of spine with radiculopathy, cervical region M47.22 ; Renal insufficiency N28.9 ; Vitamin D deficiency E55.9 ; Restless leg syndrome G25.81 ; Bilateral carotid artery disease I77.9 ; Acquired hypothyroidism E03.9 ; Coronary artery disease involving shawnee coronary artery of shawnee heart without angina pectoris I25.10 and Lipoma of back D17.1 [facility] [address] 44332- 4147 Jan, Type 2 diabetes mellitus without complication, without long- term current use of insulin E11.9 [facility] [id number] [place] [address] 56911- 3066 Dec, Osteoarthritis of spine with radiculopathy, cervical region M47.22 [facility] [id number] [place] [address] 58587- 8716 Nov, [facility] [address] 58446- 3222 Nov, Low back pain M54.5 and Osteoarthritis of spine with radiculopathy, cervical region M47.22 [facility] [address] 58952- 2250 Nov, Osteoarthritis of spine with radiculopathy, cervical [...] hypothyroidism E03.9 ; Coronary artery disease involving shawnee coronary artery of shawnee heart without angina pectoris I25.10 ; Hypercalcemia E83.52 and Left foot pain M79.672 [facility] [address] 69533- 9287 Oct, [facility] [address] 79466- 6693 Oct, Osteoarthritis of spine with radiculopathy, cervical region M47.22 [facility] [id number] [place] [address] 16548- 9069 Oct, Abnormal blood chemistry R79.9 [facility] [address] 03753- 7955 September, Osteoarthritis of spine with radiculopathy, cervical region M47.22 ; Essential hypertension I10 ; Renal insufficiency N28.9 ; Type 2 diabetes mellitus without complication, without long-term current use of insulin E11.9 ; Vitamin D deficiency E55.9 ; Paresthesia of both hands R20.2 ; Low back pain M54.5 ; Restless leg syndrome G25.81 and Dizziness R42 [facility] [id number] [place] [address] 01505- 2571 September, [facility] [address] 68979- 0953 September, [facility] [address] 30234- 1955 September, [facility] [address] [place] [address] September, [facility] [id number] [address] 9331 Aug, [facility] [address] [address] 6280 Aug, [facility] [address] [place] [address] 15479- 4457 Aug, [facility] [id number] [place] [address] 58155- 7299 Aug, [facility] [id number] [place] [address] 99473- 6648 Aug, Osteoarthritis of spine with radiculopathy, cervical region M47.22 [facility] [address] [place] [address] 31393- 3813 Aug, Essential hypertension I10 ; Renal insufficiency N28.9 ; Type 2 diabetes mellitus without complication, without long-term current use of insulin E11.9 ; Vitamin D deficiency E55.9 ; Paresthesia of both hands R20.2 ; Low back pain M54.5 ; Restless leg syndrome G25.81 ; Osteoarthritis of spine with radiculopathy, cervical region M47.[address] [facility] [address] [address]- 4236 Jul, [facility] [address] [place] [address] 64267- 1952 Jul, [facility] [address] [address]- 0681 Jul, Essential hypertension I10 ; Paresthesia of both hands R20.2 ; Upper respiratory tract infection, unspecified type J06.9 and Low back pain M54.5 [facility] [address] [address]- 6135 15 Jul, 2016 [facility] [id number] [place] [address] 70442- 8337 Jul, [facility] [address] [address]- 7084 Jul, Renal insufficiency N28.9 ; Vitamin D deficiency E55.9 ; Type 2 diabetes mellitus without complication, without long-term current use of insulin E11.9 ; Restless leg syndrome G25.81 ; Type 2 diabetes mellitus with diabetic chronic kidney disease E11.22 and Chronic kidney disease, stage [address] [facility] [address] [address]- 4493 Jul, Renal insufficiency N28.9 [facility] [address] [address]- 7826 Jun, [facility] [id number] [address]- 6476 Jun, Renal insufficiency N28.9 ; Vitamin D deficiency E55.9 ; Type 2 diabetes mellitus without complication, without long-term current use of insulin E11.9 ; Restless leg syndrome G25.81 ; Type 2 diabetes mellitus with diabetic chronic kidney disease E11.22 and Chronic kidney disease, stage [address] [facility] [address] [address]- 8017 Jun, [facility] [address] [address] 0047 May, [facility] [address] [address] 4656 May, [facility] [address] [address] 2546 May, [facility] [address] [address]- 5886 May, [facility] [address] [address]- 7266 May, [facility] [address] [address]- 1013 Apr, Acquired hypothyroidism E03.9 ; Essential hypertension I10 ; Type 2 diabetes mellitus without complication, without long-term current use of insulin E11.9 and Mixed hyperlipidemia E78.2 [facility] [address] [address]- 5316 Apr, Type 2 diabetes mellitus without complication, without long- term current use of insulin E11.9 ; Coronary artery disease involving shawnee coronary artery of shawnee heart without angina pectoris I25.10 ; Essential hypertension I10 and Acquired hypothyroidism E03.9 [facility] [address] [place] [address] 45767- 3263 Apr, Cellulitis of left lower extremity L03.116 [facility] [id number] [place] [address] 21459- 1315 Apr, Essential hypertension I10 ; Mixed hyperlipidemia E78.2 ; Type 2 diabetes mellitus without complication, without long-term current use of insulin E11.9 ; Acquired hypothyroidism E03.9 ; Cellulitis of left lower extremity L03.116 and Coronary artery disease involving shawnee coronary artery of shawnee heart without angina pectoris I25.10 [facility] [address] [address]- 2771 Apr, [facility] [address] [place] [address] 53141 -4295 Dec, Dermatitis L30.9 [facility] [address] [address]- 8768 Aug, [facility] [address] [place] [address] 52290- 1345 Aug, [facility] [address] [address]- 3319 Jan, [facility] [id number] [place] [address] 87074- 3449 Jan, [facility] [address] [address]- 3485 Jun, [facility] [id number] [address]- 2826 May, [facility] [address] [facility] [id number] [address]- 4736 May, [facility] [address] [facility] [id number] [address]- 4006 May, [facility] [address] [facility] [id number] [address]- 2149 Apr, [facility] [address] [facility] [id number] [address]- 1096 Feb, [facility] [address] [facility] [id number] [address]- 5581 Feb, [facility] [address] [facility] [id number] [address]- 3906 Nov, [facility] [address] [address] 3341 Nov, [facility] [id number] [address] Nov, [facility] [address] [address]- 2142 Nov, [facility] [id number] [address]- 8568 Nov, [facility] [id number] [address]- 1859 Nov, [facility] [address] [facility] [id number] [address]- 0120 Nov, IMMUNIZATIONS No Known Immunizations SOCIAL HISTORY Never Assessed REASON FOR VISIT Controlled Med Refill PLAN OF CARE VITAL SIGNS MEDICATIONS Medication Instructions Dosage Frequency Start Date End Date Duration Status Hydrocodone-Acetaminophen 5-325 MG Orally 3 times a day 1/2-1 tablet as needed 8h Nov, 28 days Active Lisinopril 10 MG TAKE ONE TABLET BY MOUTH ONCE DAILY 90 Active Requip 0.5 MG TAKE ONE TABLET BY MOUTH ONCE DAILY 1 TO 3 HOURS BEFORE BEDTIME 90 days Active Meclizine HCl 25 MG Orally 3 times a day 1 tablet as needed 8h 90 days Active Levothyroxine Sodium 75 mcg Orally Once a day 1 tablet on an empty stomach in the morning 24h 90 Active Potassium Chloride Corie ER 10 MEQ Orally Once a day 1 tablet with food 24h 90 days Active RESULTS No Results [...]
--- OUTSIDE RECORDS SUMMARY | 2018-04-05 19:57 | XMS REPORT ---
Author Author KING JASIEL Organization [facility] Address [address] [place] [address] Care Team Providers Care Ballast Inspector Name Role Phone JASIEL KENDRICK Unavailable PROBLEMS Type Condition ICD9-CM Code NSC05-YF Code Onset Dates Condition Status SNOMED Code Problem Mixed hyperlipidemia E78.2 Active 840984671 Problem Restless leg syndrome G25.81 Active 21239683 Problem Acquired hypothyroidism E03.9 Active 383107680 Problem Hypercalcemia E83.52 Active 28426908 Problem Bilateral carotid artery disease I77.9 Active 134163561 Problem Chronic kidney disease, stage 1 N18.1 Active 623504366 Problem Type 2 diabetes mellitus with diabetic chronic kidney disease E11.22 Active 47720049 Problem Osteoarthritis of spine with radiculopathy, cervical region M47.22 Active 280981111 Problem Low back pain M54.5 Active 037830441 Problem Vitamin D deficiency E55.9 Active 04508987 Problem Coronary artery disease involving [place] coronary artery of [place] heart without angina pectoris I25.10 Active 3247162134305 Problem Essential hypertension I10 Active 50876399 Problem Renal insufficiency N28.9 Active 746181128 Problem Type 2 diabetes mellitus without complication, without long-term current use of insulin E11.9 Active 062761034 ALLERGIES Substance Reaction Event Type Date Status Bydureon leg irritation with knot at inj site Drug Allergy Nov, Active Bactrim DS Unknown Drug Allergy Nov, Active ENCOUNTERS Encounter Location Date Diagnosis [facility] [address] [facility] [id number] [address] Jan, Low back pain M54.5 and Coronary artery disease involving [place] coronary artery of [place] heart without angina pectoris I25.10 [facility] [address] [facility] [id number] [address] Dec, Acquired hypothyroidism E03.9 and Vertigo R42 [place] [id number] [address] Dec, Low back pain M54.5 and Dermatitis L30.9 [place] [address] [place] [id number] [place] [address] 15123- 1283 Nov, Coronary artery disease involving [place] coronary artery of [place] heart without angina pectoris I25.10 [place] [address] [place] [id number] [place] [address] 21611- 9178 Nov, Acquired hypothyroidism E03.9 and Vertigo R42 [place] [address] [place] [id number] [place] [address] 22828- 5998 Nov, Encounter for well woman exam Z01.419 ; Screening for osteoporosis Z13.820 and Screening for colon cancer Z12.11 [place] [address] [place] [id number] [place] [address] 90535- 4201 Oct, Coronary artery disease involving [place] coronary artery of [place] heart without angina pectoris I25.10 [place] [address] [place] [id number] [place] [address] 00665- 2494 September, [place] [address] [place] [id number] [place] [address] 94359- 5472 September, [place] [address] [place] [id number] [place] [address] 52506- 0902 Aug, Type 2 diabetes mellitus without complication, without long- term current use of insulin E11.9 ; Essential hypertension I10 ; Acquired hypothyroidism E03.9 and Low back pain M54.5 [place] [id number] [place] [address] 42634- 9517 Aug, [facility] [address] [place] [id number] [place] [address] 45718- 5380 Aug, [facility] [address] [place] [id number] [place] [address] 00810- 2003 Jul, [place] [address] [place] [id number] [place] [address] 87731- 4893 Jul, Coronary artery disease involving [place] coronary artery of [place] heart without angina pectoris I25.10 [facility] [id number] [place] [address] 44128- 3547 Jun, Low back pain M54.5 and Essential hypertension I10 [facility] [address] [place] [id number] [place] [address] 68402- 1864 Jun, Head cold J00 [facility] [address] [place] [id number] [place] [address] 56164- 0436 May, [facility] [address] [place] [id number] [place] [address] 59500- 1523 Apr, Type 2 diabetes mellitus without complication, without long- term current use of insulin E11.9 [place] [address] [place] [id number] [place] [address] 36418- 3557 Apr, Type 2 diabetes mellitus without complication, without long- term current use of insulin E11.9 [place] [address] [place] [id number] [place] [address] 77855- 5534 Apr, Essential hypertension I10 [place] [address] [place] [id number] [place] [address] 53900- 4866 Mar, [facility] [address] [place] [id number] [place] [address] 60074- 8740 Mar, [place] [address] [place] [id number] [place] [address] 41300- 4476 Mar, Osteoarthritis of spine with radiculopathy, cervical region M47.22 [facility] [address] [place] [id number] [place] [address] 41763- 6490 Mar, [facility] [address] [place] [id number] [place] [address] 60578- 6026 Feb, [facility] [address] [place] [address] 49908- 7596 Feb, Screening breast examination Z12.31 ; Bilateral carotid artery disease I77.9 ; Low back pain M54.5 ; Osteoarthritis of spine with radiculopathy, cervical region M47.22 ; Renal insufficiency N28.9 ; Vitamin D deficiency E55.9 ; Restless leg syndrome G25.81 ; Acquired hypothyroidism E03.9 ; Coronary artery disease involving [place] coronary artery of [place] heart without angina pectoris I25.10 ; Vertigo R42 ; Essential hypertension I10 ; Type 2 diabetes mellitus with diabetic chronic kidney disease E11.22 and Encounter for immunization Z23 [place] [address] [address]- [address]48 Jan, [place] [address] 63730- 8388 Jan, Type 2 diabetes mellitus without complication, without long- term current use of insulin E11.9 ; Low back pain M54.5 ; Osteoarthritis of spine with radiculopathy, cervical region M47.22 ; Renal insufficiency N28.9 ; Vitamin D deficiency E55.9 ; Restless leg syndrome G25.81 ; Bilateral carotid artery disease I77.9 ; Acquired hypothyroidism E03.9 ; Coronary artery disease involving [place] coronary artery of [place] heart without angina pectoris I25.10 and Lipoma of back D17.1 [place] [address] 48893- 6932 Jan, Type 2 diabetes mellitus without complication, without long- term current use of insulin E11.9 [place] [address] [place] [id number] [place] [address] 31370- 3290 Dec, Osteoarthritis of spine with radiculopathy, cervical region M47.22 [place] [address] [place] [id number] [place] [address] 76721- 4240 Nov, [place] [address] 07033- 5485 Nov, Low back pain M54.5 and Osteoarthritis of spine with radiculopathy, cervical region M47.22 [place] [address] 24175- 9417 Nov, Osteoarthritis of spine with radiculopathy, cervical [...] hypothyroidism E03.9 ; Coronary artery disease involving [place] coronary artery of [place] heart without angina pectoris I25.10 ; Hypercalcemia E83.52 and Left foot pain M79.672 [place] [address] [place] [id number] [place] [address] 22505- 3263 Oct, [place] [address] [place] [id number] [place] [address] 39234- 3359 Oct, Osteoarthritis of spine with radiculopathy, cervical region M47.22 [place] [address] [place] [id number] [place] [address] 68958- 0282 Oct, Abnormal blood chemistry R79.9 [place] [address] [place] [id number] [place] [address] 71892- 0738 September, Osteoarthritis of spine with radiculopathy, cervical region M47.22 ; Essential hypertension I10 ; Renal insufficiency N28.9 ; Type 2 diabetes mellitus without complication, without long-term current use of insulin E11.9 ; Vitamin D deficiency E55.9 ; Paresthesia of both hands R20.2 ; Low back pain M54.5 ; Restless leg syndrome G25.81 and Dizziness R42 [place] [address] [place] [id number] [place] [address] 96219- 4863 September, [place] [address] [place] [id number] [place] [address] 87408- 3812 September, [place] [address] [place] [id number] [place] [address] 63402- 2130 September, [place] [address] [place] [id number] [place] [address] 57061- 3210 September, [facility] [address], [place] [address] 2843 Aug, [facility] [address], [place] [address] 2854 Aug, [facility] [address], [place] [address] 7199 Aug, [facility] [address] [place] [id number] [place] [address] 47723- 8013 Aug, [facility] [address], [place] [address] 8747 Aug, Osteoarthritis of spine with radiculopathy, cervical region M47.22 [facility] [address], [place] [address] 4[address] Aug, Essential hypertension I10 ; Renal insufficiency N28.9 ; Type 2 diabetes mellitus without complication, without long-term current use of insulin E11.9 ; Vitamin D deficiency E55.9 ; Paresthesia of both hands R20.2 ; Low back pain M54.5 ; Restless leg syndrome G25.81 ; Osteoarthritis of spine with radiculopathy, cervical region M47.22 and Dizziness R42 [facility] [address], [place] [address] 8773 Jul, [facility] [address], [place] [address]- 7084 Jul, [facility] [address], [place] [address] Jul, Essential hypertension I10 ; Paresthesia of both hands R20.2 ; Upper respiratory tract infection, unspecified type J06.9 and Low back pain M54.5 [facility] [address], [place] [address] 15 Jul, 2016 [facility] [address], [place] [address]6 Jul, [facility] [address], [place] [address]- 1232 Jul, Renal insufficiency N28.9 ; Vitamin D deficiency E55.9 ; Type 2 diabetes mellitus without complication, without long-term current use of insulin E11.9 ; Restless leg syndrome G25.81 ; Type 2 diabetes mellitus with diabetic chronic kidney disease E11.22 and Chronic kidney disease, stage 1 N18.1 [facility] [address], [place] [address]- 8552 Jul, Renal insufficiency N28.9 [facility] [address], [place] [address]- 0546 Jun, [facility] [address] [place] [id number] [place] [address] 45389- 1318 Jun, Renal insufficiency N28.9 ; Vitamin D deficiency E55.9 ; Type 2 diabetes mellitus without complication, without long-term current use of insulin E11.9 ; Restless leg syndrome G25.81 ; Type 2 diabetes mellitus with diabetic chronic kidney disease E11.22 and Chronic kidney disease, stage 1 N18.1 [facility] [address], [place] [address]- 6688 Jun, [facility] [address], [place] [address]- 3299 May, [facility] [address], [place] [address]- 4517 May, [facility] [address], [place] [address]- 1734 May, [facility] [address], [place] [address]- 0644 May, [facility] [address], [place] [address]- 2216 May, [facility] [address], [place] [address]- 2390 Apr, Acquired hypothyroidism E03.9 ; Essential hypertension I10 ; Type 2 diabetes mellitus without complication, without long-term current use of insulin E11.9 and Mixed hyperlipidemia E78.2 [facility] [address] [place] [id number] [place] [address] 86374- 8210 Apr, Type 2 diabetes mellitus without complication, without long- term current use of insulin E11.9 ; Coronary artery disease involving [place] coronary artery of [place] heart without angina pectoris I25.10 ; Essential hypertension I10 and Acquired hypothyroidism E03.9 [facility] [address] [place] [id number] [place] [address] 45812- 8280 Apr, Cellulitis of left lower extremity L03.116 [place] [address] [place] [id number] [place] [address] 57312- 6411 Apr, Essential hypertension I10 ; Mixed hyperlipidemia E78.2 ; Type 2 diabetes mellitus without complication, without long-term current use of insulin E11.9 ; Acquired hypothyroidism E03.9 ; Cellulitis of left lower extremity L03.116 and Coronary artery disease involving [place] coronary artery of [place] heart without angina pectoris I25.10 [facility] [address] [place] [id number] [place] [address] 87967- 3291 14 Apr, 2016 [facility] [address] [place] [id number] [place] [address] 48625 -0658 Dec, Dermatitis L30.9 [facility] [address] [place] [id number] [place] [address] 23541- 0743 Aug, [facility] [address] [place] [id number] [place] [address] 90180- 5333 Aug, [facility] [address] [place] [address] 82433- 0720 Jan, [facility] [address] [place] [id number] [place] [address] 136815- 7456 Jan, [facility] [address] [place] [id number] [place] [address] 64102- 0586 Jun, [facility] [address] [place] [id number] [place] [address] 88087- 4743 May, [facility] [address] [place] [id number] [address]- 9161 May, [facility] [address] [facility] [id number], [place] [address]- 5686 May, [facility] [address] [facility] [id number], [place] [address]- 2444 Apr, [facility] [address] [facility] [id number], [place] [address]- 2546 Feb, [facility] [address] [facility] [id number], [place] [address]- 5514 Feb, [facility] [address] [facility] [id number], [place] [address]- 2086 Nov, [facility] [address], [place] [address]- 1273 Nov, [facility] [address], [place] [address]- 7024 Nov, [facility] [address], [place] [address]- 2483 Nov, [facility] [address] [place] [id number] [address]- 4162 Nov, [facility] [address] [place] [id number], [place] [address]- 6161 Nov, [facility] [address] [place] [id number], [place] [address]- 4015 Nov, IMMUNIZATIONS No Known Immunizations SOCIAL HISTORY Never Assessed REASON FOR VISIT Well Woman Exam. ERI Trejo PLAN OF CARE Activity Details Follow Up 1 Year Reason:annual female physical Pending Test TRICHOMONAS (IN HOUSE) Pending Test BACTERIAL VAGINOSIS (IN HOUSE) VITAL SIGNS Height 64.5 in 2017-11-19 Weight 165.3 lbs 2017-11-19 Temperature 98.4 degrees Fahrenheit 2017-11-19 Heart Rate 69 bpm 2017-11-19 Respiratory Rate 22 2017-11-19 BMI 27.93 kg/m2 2017-11-19 Blood pressure systolic 160 mmHg 2017-11-19 Blood pressure diastolic 86 mmHg 2017-11-19 MEDICATIONS Medication Instructions Dosage Frequency Start Date End Date Duration Status Lancets 30G - as directed Apr, Active ProAir HFA 108 (90 Base) MCG/ACT Inhalation 3 times a day 2 puffs as needed 8h Jul, 10 days Active Metoprolol Tartrate 25 MG Orally Once a day 1/2 tablet 24h 90 Active Fish Oil 1000 MG Orally twice a day 1 capsule 12h Active Potassium Chloride Corie ER 10 MEQ Orally Once a day 1 tablet with food 24h 30 Active Isosorbide Mononitrate 60 mg Orally Once a day 1 tablet 24h 90 days Active Clotrimazole-Betamethasone 1-0.05 % Externally Twice a day 1 application to affected area 12h Active True Metrix Blood Glucose Test - TEST ONCE A DAY AND ONCE MORE NEEDED 25 Active Hydrocodone-Acetaminophen 5-325 MG Orally 3 times a day 1/2-1 tablet as needed 8h September, 28 days Active Aspirin 81 MG Orally Once a day 1 tablet 24h Active Trulicity 0.75 MG/0.5ML INJECT 0.5 MLS SUBCUTANEOUSLY ONCE WEEKLY Active Clopidogrel Bisulfate 75 MG Orally Once a day 1 tablet 24h 90 days Active Hydrochlorothiazide 25 MG TAKE ONE TABLET BY MOUTH ONCE DAILY 90 Active Fenofibrate 145 MG Orally Once a day 1 tablet 24h 90 Active Lisinopril 10 MG TAKE ONE TABLET BY MOUTH ONCE DAILY 90 Active Gabapentin 100 mg Orally three times a day prn 1 capsule Active Flonase Allergy Relief 50 MCG/ACT Nasally Once a day 1 spray in each nostril 24h Jun, 30 day(s) Active Pen Decherd 30G X 5 MM as directed 24h Active Vitamin B-12 50 MCG Active Rosuvastatin Calcium 20 mg Orally Once a day 1 tablet 24h 90 days Active Meclizine HCl 25 MG Orally 3 times a day 1 tablet as needed 8h 28 days Active Levothyroxine Sodium 75 mcg Orally Once a day 1 tablet on an empty stomach in the morning 24h 90 Active Requip 0.5 MG TAKE ONE TABLET BY MOUTH ONCE DAILY 1 TO 3 HOURS BEFORE BEDTIME 30 Active BD Pen Needle Mini U/F 31G X 5 MM USE ONCE DAILY 30 Active Cyclobenzaprine HCl 10 mg Orally Once a day 1/2 to 1 tablet as needed at bedtime 24h 30 Active RESULTS No Results PROCEDURES Procedure Date Ordered Result Body Site TRICHOMONAS ASSAY W/OPTIC November 19, 2017 Bacterial Vaginosis In House November 19, 2017 SPECIMEN HANDLING November 19, 2017 CULTURE, BACTERIA, OTHER November 19, 2017 No Charge November 19, 2017 INSTRUCTIONS MEDICATIONS ADMINISTERED No Known Medications MEDICAL [...]
--- OUTSIDE RECORDS SUMMARY | 2018-04-05 19:57 | XMS REPORT ---
Author Author JASIEL KENDRICK [facility] Address [address] [place] [address] Care Team Providers Care Bindery Chief Name Role Phone JOANIE KENDRICKTA Unavailable PROBLEMS Type Condition ICD9-CM Code WAE10-PC Code Onset Dates Condition Status SNOMED Code Problem Mixed hyperlipidemia E78.2 Active 125490964 Problem Restless leg syndrome G25.81 Active 14814236 Problem Acquired hypothyroidism E03.9 Active 648435954 Problem Hypercalcemia E83.52 Active 20939098 Problem Bilateral carotid artery disease I77.9 Active 897733670 Problem Chronic kidney disease, stage 1 N18.1 Active 613440427 Problem Type 2 diabetes mellitus with diabetic chronic kidney disease E11.22 Active 13329417 Problem Osteoarthritis of spine with radiculopathy, cervical region M47.22 Active 836457512 Problem Low back pain M54.5 Active 117733218 Problem Vitamin D deficiency E55.9 Active 65344248 Problem Coronary artery disease involving sitka coronary artery of sitka heart without angina pectoris I25.10 Active 7894436817985 Problem Essential hypertension I10 Active 85175834 Problem Renal insufficiency N28.9 Active 448312897 Problem Type 2 diabetes mellitus without complication, without long-term current use of insulin E11.9 Active 453552707 ALLERGIES No Information ENCOUNTERS Encounter Location Date Diagnosis [facility] [id number] [place] [address] 04243- 3178 Jan, Coronary artery disease involving sitka coronary artery of sitka heart without angina pectoris I25.10 [facility] [address] [place] [address] 35809- 1156 Jan, Low back pain M54.5 and Coronary artery disease involving sitka coronary artery of sitka heart without angina pectoris I25.10 [facility] [address] [place] [address] 54451- 9599 Dec, Acquired hypothyroidism E03.9 and Vertigo R42 [facility] [id number] [place] [address] 75879- 7600 Dec, Low back pain M54.5 and Dermatitis L30.9 [facility] [id number] [place] [address] 48346- 2496 Nov, Coronary artery disease involving sitka coronary artery of sitka heart without angina pectoris I25.10 [facility] [address] 69719- 7186 Nov, Acquired hypothyroidism E03.9 and Vertigo R42 [facility] [address] 70994- 7704 Nov, Encounter for well woman exam Z01.419 ; Screening for osteoporosis Z13.820 and Screening for colon cancer Z12.11 [facility] [address] 16328- 8261 Oct, Coronary artery disease involving sitka coronary artery of sitka heart without angina pectoris I25.10 [facility] [id number] [place] [address] 29971- 2159 September, [facility] [id number] [place] [address] 12861- 7704 September, [facility] [address] [place] [address] 74290- 3913 Aug, Type 2 diabetes mellitus without complication, without long- term current use of insulin E11.9 ; Essential hypertension I10 ; Acquired hypothyroidism E03.9 and Low back pain M54.5 [facility] [id number] [place] [address] 39144- 5540 Aug, [facility] [address] 50497- 9932 Aug, [facility] [id number] [place] [address] 21858- 9709 Jul, [facility] [id number] [place] [address] 32679- 2904 Jul, Coronary artery disease involving sitka coronary artery of sitka heart without angina pectoris I25.10 [facility] [id number] [place] [address] 54100- 5875 Jun, Low back pain M54.5 and Essential hypertension I10 [facility] [id number] [place] [address] 62350- 5785 Jun, Head cold J00 [facility] [id number] [place] [address] 29987- 8090 May, [facility] [id number] [place] [address] 01319- 4837 Apr, Type 2 diabetes mellitus without complication, without long- term current use of insulin E11.9 [facility] [id number] [place] [address] 60520- 4281 12 Apr, 2017 Type 2 diabetes mellitus without complication, without long- term current use of insulin E11.9 [facility] [id number] [place] [address] 79019- 7469 Apr, Essential hypertension I10 [facility] [id number] [place] [address] 81035- 4746 Mar, [facility] [id number] [place] [address] 16139- 7551 Mar, [facility] [id number] [place] [address] 97069- 8722 Mar, Osteoarthritis of spine with radiculopathy, cervical region M47.22 [facility] [id number] [place] [address] 52271- 8816 Mar, [facility] [id number] [place] [address] 08486- 4412 Feb, [facility] [address] [place] [address] 60920- 8784 Feb, Screening breast examination Z12.31 ; Bilateral carotid artery disease I77.9 ; Low back pain M54.5 ; Osteoarthritis of spine with radiculopathy, cervical region M47.22 ; Renal insufficiency N28.9 ; Vitamin D deficiency E55.9 ; Restless leg syndrome G25.81 ; Acquired hypothyroidism E03.9 ; Coronary artery disease involving sitka coronary artery of sitka heart without angina pectoris I25.10 ; Vertigo R42 ; Essential hypertension I10 ; Type 2 diabetes mellitus with diabetic chronic kidney disease E11.22 and Encounter for immunization Z23 [facility] [address] 79795- 5946 Jan, [facility] [address] 06941- 7617 Jan, Type 2 diabetes mellitus without complication, without long- term current use of insulin E11.9 ; Low back pain M54.5 ; Osteoarthritis of spine with radiculopathy, cervical region M47.22 ; Renal insufficiency N28.9 ; Vitamin D deficiency E55.9 ; Restless leg syndrome G25.81 ; Bilateral carotid artery disease I77.9 ; Acquired hypothyroidism E03.9 ; Coronary artery disease involving sitka coronary artery of sitka heart without angina pectoris I25.10 and Lipoma of back D17.1 [facility] [address] 92885- 5721 Jan, Type 2 diabetes mellitus without complication, without long- term current use of insulin E11.9 [facility] [id number] [place] [address] 96182- 0745 Dec, Osteoarthritis of spine with radiculopathy, cervical region M47.22 [facility] [id number] [place] [address] 03434- 7478 Nov, [facility] [address] 25907- 3028 Nov, Low back pain M54.5 and Osteoarthritis of spine with radiculopathy, cervical region M47.22 [facility] [address] 14164- 9218 Nov, Osteoarthritis of spine with radiculopathy, cervical [...] hypothyroidism E03.9 ; Coronary artery disease involving sitka coronary artery of sitka heart without angina pectoris I25.10 ; Hypercalcemia E83.52 and Left foot pain M79.672 [facility] [address] 01056- 9307 Oct, [facility] [address] 97401- 5661 Oct, Osteoarthritis of spine with radiculopathy, cervical region M47.22 [facility] [id number] [place] [address] 67156- 0201 Oct, Abnormal blood chemistry R79.9 [facility] [address] 44974- 1798 September, Osteoarthritis of spine with radiculopathy, cervical region M47.22 ; Essential hypertension I10 ; Renal insufficiency N28.9 ; Type 2 diabetes mellitus without complication, without long-term current use of insulin E11.9 ; Vitamin D deficiency E55.9 ; Paresthesia of both hands R20.2 ; Low back pain M54.5 ; Restless leg syndrome G25.81 and Dizziness R42 [facility] [id number] [place] [address] 69918- 9831 September, [facility] [address] 33497- 8880 September, [facility] [address] 35477- 9646 September, [facility] [address] [place] [address]- 1862 September, [facility] [id number] [address]- 5528 Aug, [facility] [address] [address]- 3659 Aug, [facility] [address] [place] [address] 07086- 8655 Aug, [facility] [id number] [place] [address] 35780- 7182 Aug, [facility] [id number] [place] [address] 07921- 2714 Aug, Osteoarthritis of spine with radiculopathy, cervical region M47.22 [facility] [address] [place] [address] 67720- 3729 Aug, Essential hypertension I10 ; Renal insufficiency N28.9 ; Type 2 diabetes mellitus without complication, without long-term current use of insulin E11.9 ; Vitamin D deficiency E55.9 ; Paresthesia of both hands R20.2 ; Low back pain M54.5 ; Restless leg syndrome G25.81 ; Osteoarthritis of spine with radiculopathy, cervical region M47.22 and Dizziness R42 [facility] [address] [address]- 4124 Jul, [facility] [address] [place] [address] 89887- 4924 Jul, [facility] [address] [address]- 9716 Jul, Essential hypertension I10 ; Paresthesia of both hands R20.2 ; Upper respiratory tract infection, unspecified type J06.9 and Low back pain M54.5 [facility] [address] [address]- 2124 15 Jul, 2016 [facility] [id number] [place] [address] 98056- 7760 Jul, [facility] [address] [address]- 8935 Jul, Renal insufficiency N28.9 ; Vitamin D deficiency E55.9 ; Type 2 diabetes mellitus without complication, without long-term current use of insulin E11.9 ; Restless leg syndrome G25.81 ; Type 2 diabetes mellitus with diabetic chronic kidney disease E11.22 and Chronic kidney disease, stage 1 N18.1 [facility] [address] [address]- 0176 Jul, Renal insufficiency N28.9 [facility] [address] [address]- 4916 Jun, [facility] [address] [address]- 1162 Jun, Renal insufficiency N28.9 ; Vitamin D deficiency E55.9 ; Type 2 diabetes mellitus without complication, without long-term current use of insulin E11.9 ; Restless leg syndrome G25.81 ; Type 2 diabetes mellitus with diabetic chronic kidney disease E11.22 and Chronic kidney disease, stage 1 N18.1 [facility] [address] [address]- 3955 Jun, [facility] [address] [address] 0716 May, [facility] [address] [address]- 4566 May, [facility] [address] [address] 2546 May, [facility] [address] [address]- 1196 May, [facility] [address] [address]- 7246 May, [facility] [address] [address]- 4480 Apr, Acquired hypothyroidism E03.9 ; Essential hypertension I10 ; Type 2 diabetes mellitus without complication, without long-term current use of insulin E11.9 and Mixed hyperlipidemia E78.2 [facility] [address] [address]- 7186 Apr, Type 2 diabetes mellitus without complication, without long- term current use of insulin E11.9 ; Coronary artery disease involving sitka coronary artery of sitka heart without angina pectoris I25.10 ; Essential hypertension I10 and Acquired hypothyroidism E03.9 [facility] [address] [place] [address] 48572- 5525 Apr, Cellulitis of left lower extremity L03.116 [facility] [id number] [place] [address] 87532- 6023 Apr, Essential hypertension I10 ; Mixed hyperlipidemia E78.2 ; Type 2 diabetes mellitus without complication, without long-term current use of insulin E11.9 ; Acquired hypothyroidism E03.9 ; Cellulitis of left lower extremity L03.116 and Coronary artery disease involving sitka coronary artery of sitka heart without angina pectoris I25.10 [facility] [address] [address]- 3762 Apr, [facility] [address] [place] [address] 41871 -5597 Dec, Dermatitis L30.9 [facility] [address] [address]- 3079 Aug, [facility] [address] [place] [address] 80316- 2925 Aug, [facility] [address] [address]- 3676 Jan, [facility] [id number] [place] [address] 07364- 0200 Jan, [facility] [address], [place] [address]- 9469 Jun, [facility] [id number] [address]- 0531 May, [facility] [address], [place] [address]- 2408 May, [facility] [address] [facility] [id number] [address]- 0510 May, [facility] [id number] [address]- 9387 Apr, [facility] [address] [facility] [id number] [address]- 3156 Feb, [facility] [address] [address]- 2079 Feb, [facility] [address] 7008 Nov, [facility] [address] 8921 Nov, [facility] [address] 5501 Nov, [facility] [address] [address]- 3186 Nov, [facility] [id number] [address]- 1513 Nov, [facility] [id number] [address]- 9721 Nov, [facility] [id number] [address]- 2693 Nov, IMMUNIZATIONS No Known Immunizations SOCIAL HISTORY Never Assessed REASON FOR VISIT Refill Requests PLAN OF CARE VITAL SIGNS MEDICATIONS Medication Instructions Dosage Frequency Start Date End Date Duration Status Rosuvastatin Calcium 10 MG Orally Once a day 2 tablets 24h 90 days Active RESULTS No Results [...]
--- OUTSIDE RECORDS SUMMARY | 2018-04-05 19:58 | XMS REPORT ---
Author Author JASIEL KENDRICK [facility] Address [address] [place] [address] Care Team Providers Care Announcer Name Role Phone JOANIE KENDRICKTA Unavailable PROBLEMS Type Condition ICD9-CM Code JYR76-VU Code Onset Dates Condition Status SNOMED Code Problem Mixed hyperlipidemia E78.2 Active 225559212 Problem Restless leg syndrome G25.81 Active 82510726 Problem Acquired hypothyroidism E03.9 Active 094381598 Problem Hypercalcemia E83.52 Active 87884106 Problem Bilateral carotid artery disease I77.9 Active 938119651 Problem Chronic kidney disease, stage 1 N18.1 Active 116172132 Problem Type 2 diabetes mellitus with diabetic chronic kidney disease E11.22 Active 92953398 Problem Osteoarthritis of spine with radiculopathy, cervical region M47.22 Active 369412849 Problem Low back pain M54.5 Active 822042685 Problem Vitamin D deficiency E55.9 Active 72065370 Problem Coronary artery disease involving [place] coronary artery of [place] heart without angina pectoris I25.10 Active 6836870880223 Problem Essential hypertension I10 Active 71716873 Problem Renal insufficiency N28.9 Active 895002234 Problem Type 2 diabetes mellitus without complication, without long-term current use of insulin E11.9 Active 634137373 ALLERGIES No Information ENCOUNTERS Encounter Location Date Diagnosis [facility] [id number] [place] [address] 41838- 0257 Dec, Acquired hypothyroidism E03.9 and Vertigo R42 [facility] [id number] [place] [address] 38969- 9382 Dec, Low back pain M54.5 and Dermatitis L30.9 [facility] [id number] [place] [address] 46455- 1499 Nov, Coronary artery disease involving [place] coronary artery of [place] heart without angina pectoris I25.10 [facility] [id number] [place] [address] 56902- 3474 Nov, Acquired hypothyroidism E03.9 and Vertigo R42 [facility] [id number] [place] [address] 27797- 2160 Nov, Encounter for well woman exam Z01.419 ; Screening for osteoporosis Z13.820 and Screening for colon cancer Z12.11 [facility] [id number] [place] [address] 14953- 5439 Oct, Coronary artery disease involving [place] coronary artery of [place] heart without angina pectoris I25.10 [facility] [id number] [place] [address] 81701- 1327 September, [facility] [id number] [place] [address] 62530- 4621 September, [facility] [id number] [place] [address] 74310- 9220 Aug, Type 2 diabetes mellitus without complication, without long- term current use of insulin E11.9 ; Essential hypertension I10 ; Acquired hypothyroidism E03.9 and Low back pain M54.5 [facility] [id number] [place] [address] 76747- 7964 Aug, [facility] [id number] [place] [address] 28351- 2119 Aug, [facility] [id number] [place] [address] 69735- 4128 Jul, [facility] [id number] [place] [address] 73405- 5284 Jul, Coronary artery disease involving [place] coronary artery of [place] heart without angina pectoris I25.10 [facility] [id number] [place] [address] 74924- 8718 Jun, Low back pain M54.5 and Essential hypertension I10 [facility] [address] 93759- 4060 Jun, Head cold J00 [facility] [id number] [place] [address] 54247- 9912 May, [facility] [id number] [place] [address] 808824- 3206 Apr, Type 2 diabetes mellitus without complication, without long- term current use of insulin E11.9 [facility] [id number] [place] [address] 21942- 3628 Apr, Type 2 diabetes mellitus without complication, without long- term current use of insulin E11.9 [facility] [id number] [place] [address] 76757- 7982 Apr, Essential hypertension I10 [facility] [id number] [place] [address] 76247- 6822 Mar, [facility] [id number] [place] [address] 54184- 5209 Mar, [facility] [id number] [place] [address] 81667- 7879 Mar, Osteoarthritis of spine with radiculopathy, cervical region M47.22 [facility] [id number] [place] [address] 38123- 6734 Mar, [facility] [id number] [place] [address] 34633- 6042 Feb, [facility] [id number] [place] [address] 08011- 2594 Feb, Screening breast examination Z12.31 ; Bilateral carotid artery disease I77.9 ; Low back pain M54.5 ; Osteoarthritis of spine with radiculopathy, cervical region M47.22 ; Renal insufficiency N28.9 ; Vitamin D deficiency E55.9 ; Restless leg syndrome G25.81 ; Acquired hypothyroidism E03.9 ; Coronary artery disease involving [place] coronary artery of [place] heart without angina pectoris I25.10 ; Vertigo R42 ; Essential hypertension I10 ; Type 2 diabetes mellitus with diabetic chronic kidney disease E11.22 and Encounter for immunization Z23 [facility] [id number] [place] [address] 41432- 4888 Jan, [place] [address] 45251- 4385 Jan, Type 2 diabetes mellitus without complication, without long- term current use of insulin E11.9 ; Low back pain M54.5 ; Osteoarthritis of spine with radiculopathy, cervical region M47.22 ; Renal insufficiency N28.9 ; Vitamin D deficiency E55.9 ; Restless leg syndrome G25.81 ; Bilateral carotid artery disease I77.9 ; Acquired hypothyroidism E03.9 ; Coronary artery disease involving [place] coronary artery of [place] heart without angina pectoris I25.10 and Lipoma of back D17.1 [facility] [id number] [place] [address] 94252- 0287 Jan, Type 2 diabetes mellitus without complication, without long- term current use of insulin E11.9 [facility] [id number] [place] [address] 76426- 7273 Dec, Osteoarthritis of spine with radiculopathy, cervical region M47.22 [facility] [id number] [place] [address] 53534- 1573 Nov, [facility] [id number] [place] [address] 76900- 9024 Nov, Low back pain M54.5 and Osteoarthritis of spine with radiculopathy, cervical region M47.22 [facility] [id number] [place] [address] 91509- 8440 Nov, Osteoarthritis of spine with radiculopathy, cervical [...] hypothyroidism E03.9 ; Coronary artery disease involving [place] coronary artery of [place] heart without angina pectoris I25.10 ; Hypercalcemia E83.52 and Left foot pain M79.672 [facility] [id number] [place] [address] 33670- 9268 Oct, [facility] [facility] [id number] [place] [address] 74889- 3322 Oct, Osteoarthritis of spine with radiculopathy, cervical region M47.22 [facility] [id number] [place] [address] 51803- 0673 Oct, Abnormal blood chemistry R79.9 [facility] [id number] [place] [address] 67016- 3593 September, Osteoarthritis of spine with radiculopathy, cervical region M47.22 ; Essential hypertension I10 ; Renal insufficiency N28.9 ; Type 2 diabetes mellitus without complication, without long-term current use of insulin E11.9 ; Vitamin D deficiency E55.9 ; Paresthesia of both hands R20.2 ; Low back pain M54.5 ; Restless leg syndrome G25.81 and Dizziness R42 [facility] [facility] [id number] [place] [address] 75101- 5588 September, [facility] [facility] [id number] [place] [address] 17167- 5698 September, [facility] [facility] [id number] [place] [address] 72931- 4588 September, [facility] [facility] [id number] [place] [address] 26640- 1117 September, [place] [facility] [id number] [place] [address] 85713- 7982 Aug, [facility] [id number] [place] [address] 15787- 8267 Aug, [place] [id number] [place] [address] 83364- 6431 Aug, [place] [facility] [address] [address]- 6115 Aug, [facility] [id number] [place] [address] 93189- 9655 Aug, Osteoarthritis of spine with radiculopathy, cervical region M47.22 [facility] [id number] [place] [address] 95704- 9362 Aug, Essential hypertension I10 ; Renal insufficiency N28.9 ; Type 2 diabetes mellitus without complication, without long-term current use of insulin E11.9 ; Vitamin D deficiency E55.9 ; Paresthesia of both hands R20.2 ; Low back pain M54.5 ; Restless leg syndrome G25.81 ; Osteoarthritis of spine with radiculopathy, cervical region M47.22 and Dizziness R42 [place] [facility] [id number] [place] [address] 43975- 8324 Jul, [facility] [facility] [id number] [place] [address] 54731- 0391 Jul, [facility] [facility] [id number] [place] [address] 20269- 1507 Jul, Essential hypertension I10 ; Paresthesia of both hands R20.2 ; Upper respiratory tract infection, unspecified type J06.9 and Low back pain M54.5 [place] [address] [address]- 1613 15 Jul, 2016 [facility] [facility] [id number] [place] [address] 37173- 9137 Jul, [place] [facility] [id number] [place] [address] 70812- 0064 09 Jul, 2016 Renal insufficiency N28.9 ; Vitamin D deficiency E55.9 ; Type 2 diabetes mellitus without complication, without long-term current use of insulin E11.9 ; Restless leg syndrome G25.81 ; Type 2 diabetes mellitus with diabetic chronic kidney disease E11.22 and Chronic kidney disease, stage 1 N18.1 [facility] [address] [address]- 3704 Jul, Renal insufficiency N28.9 [facility] [id number] [place] [address] 40062- 6081 Jun, [facility] [id number] [place] [address] 83641- 4061 Jun, Renal insufficiency N28.9 ; Vitamin D deficiency E55.9 ; Type 2 diabetes mellitus without complication, without long-term current use of insulin E11.9 ; Restless leg syndrome G25.81 ; Type 2 diabetes mellitus with diabetic chronic kidney disease E11.22 and Chronic kidney disease, stage 1 N18.1 [place] [id number] [place] [address] 72128- 3112 Jun, [facility] [facility] [id number] [place] [address] 29533- 5871 May, [place] [facility] [id number] [place] [address] 92057- 5319 May, [place] [id number] [place] [address] 20477- 0346 May, [place] [facility] [id number] [place] [address] 34187- 3949 May, [place] [id number] [place] [address] 87191- 4681 May, [place] [id number] [place] [address] 57977- 2698 Apr, Acquired hypothyroidism E03.9 ; Essential hypertension I10 ; Type 2 diabetes mellitus without complication, without long-term current use of insulin E11.9 and Mixed hyperlipidemia E78.2 [facility] [address] [address]- 5923 Apr, Type 2 diabetes mellitus without complication, without long- term current use of insulin E11.9 ; Coronary artery disease involving [place] coronary artery of [place] heart without angina pectoris I25.10 ; Essential hypertension I10 and Acquired hypothyroidism E03.9 [facility] [id number] [place] [address] 34803- 1027 21 Apr, 2016 Cellulitis of left lower extremity L03.116 [facility] [id number] [place] [address] 06824- 4500 20 Apr, 2016 Essential hypertension I10 ; Mixed hyperlipidemia E78.2 ; Type 2 diabetes mellitus without complication, without long-term current use of insulin E11.9 ; Acquired hypothyroidism E03.9 ; Cellulitis of left lower extremity L03.116 and Coronary artery disease involving [place] coronary artery of [place] heart without angina pectoris I25.10 [facility] [id number] [place] [address] 77409- 4299 14 Apr, 2016 [facility] [id number] [place] [address] 08741 -1188 Dec, Dermatitis L30.9 [facility] [id number] [place] [address] 57489- 6601 14 Aug, 2014 [facility] [id number] [place] [address] 70919- 0142 Aug, [facility] [id number] [place] [address] 21414- 3175 Jan, [facility] [id number] [place] [address] 41164- 7024 Jan, [facility] [id number] [place] [address] 52914- 4879 Jun, [facility] [id number] [place] [address] 96871- 4559 May, [facility] [id number] [place] [address] 29664- 6935 May, [facility] [id number] [place] [address] 48189- 9208 May, [facility] [id number] [place] [address] 24312- 5863 Apr, [facility] [id number] [address]- 0216 Feb, [facility] [address] [facility] [id number] [address]- 2546 Feb, [facility] [id number] [address]- 6706 Nov, [facility] [address] [facility] [id number] [address]- 2546 Nov, [facility] [address] [facility] [id number], [place] [address]- 2546 Nov, [facility] [address] [address]- 4576 Nov, [facility] [address] [address]- 3236 Nov, [facility] [id number] [address]- 3984 Nov, [facility] [id number] [address]- 2491 Nov, IMMUNIZATIONS No Known Immunizations SOCIAL HISTORY Never Assessed REASON FOR VISIT Refill request PLAN OF CARE VITAL SIGNS MEDICATIONS Medication Instructions Dosage Frequency Start Date End Date Duration Status Isosorbide Mononitrate 60 mg Orally Once a day 1 tablet 24h 90 days Active Clopidogrel Bisulfate 75 MG Orally [...]
--- OUTSIDE RECORDS SUMMARY | 2018-04-05 19:58 | XMS REPORT ---
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 Role Phone SAKSHI TIDWELL Unavailable PROBLEMS Type Condition ICD9-CM Code VRZ11-NB Code Onset Dates Condition Status SNOMED Code Problem Mixed hyperlipidemia E78.2 Active 014072382 Problem Restless leg syndrome G25.81 Active 52642925 Problem Acquired hypothyroidism E03.9 Active 515150557 Problem Hypercalcemia E83.52 Active 80731550 Problem Bilateral carotid artery disease I77.9 Active 448484362 Problem Chronic kidney disease, stage 1 N18.1 Active 308409818 Problem Type 2 diabetes mellitus with diabetic chronic kidney disease E11.22 Active 36499770 Problem Osteoarthritis of spine with radiculopathy, cervical region M47.22 Active 081601843 Problem Low back pain M54.5 Active 295560084 Problem Vitamin D deficiency E55.9 Active 87066321 Problem Coronary artery disease involving [place] coronary artery of [place] heart without angina pectoris I25.10 Active 0772160284046 Problem Essential hypertension I10 Active 83473493 Problem Renal insufficiency N28.9 Active 294121939 Problem Type 2 diabetes mellitus without complication, without long-term current use of insulin E11.9 Active 677569184 ALLERGIES No Information ENCOUNTERS Encounter Location Date Diagnosis [place] [id number] [address] Dec, [place] [id number] [place] [address] 02196- 1154 Nov, Coronary artery disease involving [place] coronary artery of [place] heart without angina pectoris I25.10 [facility] [id number], [place] [address] Nov, Acquired hypothyroidism E03.9 and Vertigo R42 [place] [address] [place] [id number] [place] [address] 18854- 7465 Nov, Encounter for well woman exam Z01.419 ; Screening for osteoporosis Z13.820 and Screening for colon cancer Z12.11 [place] [address] [place] [id number] [place] [address] 20162- 7031 Oct, Coronary artery disease involving [place] coronary artery of [place] heart without angina pectoris I25.10 [place] [address] [place] [id number] [place] [address] 98336- 1504 September, [place] [address] [id number] [place] [address] 96974- 9812 September, [place] [address] [id number] [place] [address] 18539- 8777 Aug, Type 2 diabetes mellitus without complication, without long- term current use of insulin E11.9 ; Essential hypertension I10 ; Acquired hypothyroidism E03.9 and Low back pain M54.5 [place] [address] [id number] [place] [address] 37754- 0728 Aug, [place] [address] [id number] [place] [address] 18744- 2958 Aug, [place] [address] [id number] [place] [address] 83062- 2826 Jul, [place] [address] [id number] [place] [address] 09861- 2452 Jul, Coronary artery disease involving [place] coronary artery of [place] heart without angina pectoris I25.10 [place] [address] [place] [id number] [place] [address] 12397- 5480 Jun, Low back pain M54.5 and Essential hypertension I10 [place] [address] [place] [id number] [place] [address] 60032- 7700 Jun, Head cold J00 [place] [address] [place] [id number] [place] [address] 96530- 7666 May, [place] [address], [place] [address] 14 Apr, 2017 Type 2 diabetes mellitus without complication, without long- term current use of insulin E11.9 [place] [id number] [place] [address] 70785- 2803 Apr, Type 2 diabetes mellitus without complication, without long- term current use of insulin E11.9 [place] [address] [place] [id number] [place] [address] 74211- 0816 Apr, Essential hypertension I10 [place] [address] [place] [address] [id number] [place] [address] 86881- 7771 Mar, [place] [address] [place] [id number] [place] [address] 84339- 0583 Mar, [place] [address] [id number] [place] [address] 76874- 5167 Mar, Osteoarthritis of spine with radiculopathy, cervical region M47.22 [place] [id number] [place] [address] 70399- 7473 Mar, [place] [address] [place] [address] [id number] [place] [address] 27494- 5032 Feb, [place] [id number] [place] [address] 33250- 4158 Feb, Screening breast examination Z12.31 ; Bilateral carotid artery disease I77.9 ; Low back pain M54.5 ; Osteoarthritis of spine with radiculopathy, cervical region M47.22 ; Renal insufficiency N28.9 ; Vitamin D deficiency E55.9 ; Restless leg syndrome G25.81 ; Acquired hypothyroidism E03.9 ; Coronary artery disease involving [place] coronary artery of [place] heart without angina pectoris I25.10 ; Vertigo R42 ; Essential hypertension I10 ; Type 2 diabetes mellitus with diabetic chronic kidney disease E11.22 and Encounter for immunization Z23 [place] [id number] [place] [address] 98652- 1797 Jan, [place] [id number] [place] [address] 15220- 5807 Jan, Type 2 diabetes mellitus without complication, without long- term current use of insulin E11.9 ; Low back pain M54.5 ; Osteoarthritis of spine with radiculopathy, cervical region M47.22 ; Renal insufficiency N28.9 ; Vitamin D deficiency E55.9 ; Restless leg syndrome G25.81 ; Bilateral carotid artery disease I77.9 ; Acquired hypothyroidism E03.9 ; Coronary artery disease involving [place] coronary artery of [place] heart without angina pectoris I25.10 and Lipoma of back D17.1 [place] [address] [place] [id number] [place] [address] 20828- 6777 Jan, Type 2 diabetes mellitus without complication, without long- term current use of insulin E11.9 [place] [address] [place] [id number] [place] [address] 72610- 4938 Dec, Osteoarthritis of spine with radiculopathy, cervical region M47.22 [place] [address] [place] [id number] [place] [address] 38240- 9966 Nov, [place] [id number] [place] [address] 40975- 2580 Nov, Low back pain M54.5 and Osteoarthritis of spine with radiculopathy, cervical region M47.22 [place] [address] [place] [address] [id number] [place] [address] 03895- 7313 Nov, Osteoarthritis of spine with radiculopathy, cervical [...] hypothyroidism E03.9 ; Coronary artery disease involving [place] coronary artery of [place] heart without angina pectoris I25.10 ; Hypercalcemia E83.52 and Left foot pain M79.672 [place] [address] [place] [address] [id number] [place] [address] 17855- 4692 Oct, [facility] [id number] [place] [address] 08438- 8759 14 Oct, 2016 Osteoarthritis of spine with radiculopathy, cervical region M47.22 [facility] [address] [id number] [place] [address] 84778- 9644 05 Oct, 2016 Abnormal blood chemistry R79.9 [facility] [address] [id number] [place] [address] 59815- 7443 September, Osteoarthritis of spine with radiculopathy, cervical region M47.22 ; Essential hypertension I10 ; Renal insufficiency N28.9 ; Type 2 diabetes mellitus without complication, without long-term current use of insulin E11.9 ; Vitamin D deficiency E55.9 ; Paresthesia of both hands R20.2 ; Low back pain M54.5 ; Restless leg syndrome G25.81 and Dizziness R42 [facility] [id number] [place] [address] 50992- 7869 September, [facility] [id number] [place] [address] 55690- 6855 September, [facility] [id number] [place] [address] 95295- 3239 September, [facility] [id number] [place] [address] 60059- 3027 September, [facility] [id number] [place] [address] 06120- 0893 Aug, [facility] [id number] [place] [address] 43698- 3385 Aug, [facility] [id number] [place] [address] 58300- 2024 Aug, [facility] [id number] [place] [address] 02614- 9407 Aug, [facility] [id number] [place] [address] 79133- 0810 Aug, Osteoarthritis of spine with radiculopathy, cervical region M47.22 [place] [address] [place] [address] [id number] [place] [address] 26145- 9579 Aug, Essential hypertension I10 ; Renal insufficiency N28.9 ; Type 2 diabetes mellitus without complication, without long-term current use of insulin E11.9 ; Vitamin D deficiency E55.9 ; Paresthesia of both hands R20.2 ; Low back pain M54.5 ; Restless leg syndrome G25.81 ; Osteoarthritis of spine with radiculopathy, cervical region M47.22 and Dizziness R42 [place] [address] [place] [address] [id number] [place] [address] 49116- 7621 Jul, [place] [address] [place] [id number] [place] [address] 16322- 8176 Jul, [place] [address] [place] [address] [id number] [place] [address] 85397- 8268 Jul, Essential hypertension I10 ; Paresthesia of both hands R20.2 ; Upper respiratory tract infection, unspecified type J06.9 and Low back pain M54.5 [place] [address] [place] [id number] [place] [address] 60567- 6586 Jul, [place] [address] [place] [id number] [place] [address] 49752- 9821 Jul, [place] [address] [place] [id number] [place] [address] 42297- 3750 Jul, Renal insufficiency N28.9 ; Vitamin D deficiency E55.9 ; Type 2 diabetes mellitus without complication, without long-term current use of insulin E11.9 ; Restless leg syndrome G25.81 ; Type 2 diabetes mellitus with diabetic chronic kidney disease E11.22 and Chronic kidney disease, stage 1 N18.1 [place] [address] [place] [id number] [place] [address] 53227- 6926 07 Jul, 2016 Renal insufficiency N28.9 [place] [address] [place] [id number] [place] [address] 10995- 4586 10 Jun, 2016 [facility] [address], [place] [address]- 6817 07 Jun, 2016 Renal insufficiency N28.9 ; Vitamin D deficiency E55.9 ; Type 2 diabetes mellitus without complication, without long-term current use of insulin E11.9 ; Restless leg syndrome G25.81 ; Type 2 diabetes mellitus with diabetic chronic kidney disease E11.22 and Chronic kidney disease, stage 1 N18.1 [facility] [address], [place] [address]- 2076 Jun, [facility] [id number] [place] [address] 78014- 1233 May, [facility] [address] [place] [id number] [place] [address] 70489- 7835 May, [facility] [id number] [place] [address]- 2615 May, [facility] [address], [place] [address]- 2632 May, [facility] [address], [place] [address]- 6943 May, [facility] [address] [place] [address]- 3446 Apr, Mixed hyperlipidemia E78.2 ; Acquired hypothyroidism E03.9 ; Essential hypertension I10 and Type 2 diabetes mellitus without complication, without long-term current use of insulin E11.9 [facility] [id number], [place] [address]- 6192 Apr, Type 2 diabetes mellitus without complication, without long- term current use of insulin E11.9 ; Coronary artery disease involving [place] coronary artery of [place] heart without angina pectoris I25.10 ; Essential hypertension I10 and Acquired hypothyroidism E03.9 [facility] [id number] [address]- 2400 Apr, Cellulitis of left lower extremity L03.116 [facility] [address] [place] [address]- 0653 20 Apr, 2016 Essential hypertension I10 ; Mixed hyperlipidemia E78.2 ; Type 2 diabetes mellitus without complication, without long-term current use of insulin E11.9 ; Acquired hypothyroidism E03.9 ; Cellulitis of left lower extremity L03.116 and Coronary artery disease involving [place] coronary artery of [place] heart without angina pectoris I25.10 [facility] [address] [place] [address]- 1384 14 Apr, 2016 [facility] [address], [place] [address]66 Dec, Dermatitis L30.9 [facility] [id number] [place] [address] 83978- 3384 14 Aug, 2014 [facility] [id number] [place] [address] 11401- 7008 Aug, [facility] [address], [place] [address]- 4715 Jan, [facility] [address], [place] [address]- 7210 Jan, [facility] [address], [place] [address]- 6422 Jun, [facility] [address] [place] [address]- 9086 May, [facility] [address] [place] [address]- 3756 May, [facility] [address] 8276 May, [facility] [address] 9770 Apr, [facility] [address] [address]- 1703 Feb, [facility] [id number] [place] [address]- 4526 Feb, [facility] [id number], [place] [address]- 7065 Nov, [facility] [address], [place] [address]- 1159 18 Nov, 2011 [facility] [address], [place] [address]- 6983 Nov, [facility] [address] [place] [address]- 6974 Nov, [facility] [address] [place] [address]- 1189 Nov, [facility] [address], [place] [address]- 4469 Nov, [facility] [id number] [address]- 4706 Nov, IMMUNIZATIONS No Known Immunizations SOCIAL HISTORY Never Assessed REASON FOR VISIT Refill request PLAN OF CARE VITAL SIGNS MEDICATIONS Medication Instructions Dosage Frequency Start Date End Date Duration Status Clotrimazole-Betamethasone 1-0.05 % Externally Twice a day 1 application to affected area 12h Active RESULTS No Results PROCEDURES No Known [...]
--- OUTSIDE RECORDS SUMMARY | 2018-04-05 19:58 | XMS REPORT ---
Author Author SAKSHI TIDWELL Organization [facility] Address [address] [place] [address] Care Team Providers Care [facility] Nursing Director Name Role Phone SAKSHI TIDWELL Unavailable PROBLEMS Type Condition ICD9-CM Code CJA08-[id number] Code Onset Dates Condition Status SNOMED Code Problem Mixed hyperlipidemia E78.2 Active 345995266 Problem Restless leg syndrome G25.81 Active 12836958 Problem Acquired hypothyroidism E03.9 Active 320454000 Problem Hypercalcemia E83.52 Active 67260894 Problem Bilateral carotid artery disease I77.9 Active 239171460 Problem Chronic kidney disease, stage 1 N18.1 Active 559691857 Problem Type 2 diabetes mellitus with diabetic chronic kidney disease E11.22 Active 32617241 Problem Osteoarthritis of spine with radiculopathy, cervical region M47.22 Active 025884896 Problem Low back pain M54.5 Active 039729273 Problem Vitamin D deficiency E55.9 Active 12746397 Problem Coronary artery disease involving tejon coronary artery of tejon heart without angina pectoris I25.10 Active 4416687275333 Problem Essential hypertension I10 Active 04999468 Problem Renal insufficiency N28.9 Active 849013628 Problem Type 2 diabetes mellitus without complication, without long-term current use of insulin E11.9 Active 630186350 ALLERGIES No Information ENCOUNTERS Encounter Location Date Diagnosis [facility] [id number] [place] [address] 94077- 3995 Dec, Low back pain M54.5 and Dermatitis L30.9 [facility] [id number] [place] [address] 15312- 9075 Nov, Coronary artery disease involving tejon coronary artery of tejon heart without angina pectoris I25.10 [facility] [id number] [place] [address] 55122- 8340 Nov, Acquired hypothyroidism E03.9 and Vertigo R42 [facility] [id number] [place] [address] 44229- 4267 Nov, Encounter for well woman exam Z01.419 ; Screening for osteoporosis Z13.820 and Screening for colon cancer Z12.11 [facility] [id number] [place] [address] 13452- 3342 Oct, Coronary artery disease involving tejon coronary artery of tejon heart without angina pectoris I25.10 [facility] [id number] [place] [address] 70357- 7450 September, [facility] [address] 36320- 6031 September, [facility] [id number] [place] [address] 80641- 7286 Aug, Type 2 diabetes mellitus without complication, without long- term current use of insulin E11.9 ; Essential hypertension I10 ; Acquired hypothyroidism E03.9 and Low back pain M54.5 [facility] [id number] [place] [address] 38734- 4788 Aug, [facility] [id number] [place] [address] 50426- 4317 Aug, [facility] [id number] [place] [address] 90278- 1676 Jul, [facility] [id number] [place] [address] 40964- 4912 Jul, Coronary artery disease involving tejon coronary artery of tejon heart without angina pectoris I25.10 [facility] [id number] [place] [address] 70968- 8713 Jun, Low back pain M54.5 and Essential hypertension I10 [facility] [id number] [place] [address] 42735- 4193 Jun, Head cold J00 [facility] [facility] [address] 35889- 2454 May, [facility] [address] [address] 3229 Apr, Type 2 diabetes mellitus without complication, without long- term current use of insulin E11.9 [facility] [address] [address]- 1580 Apr, Type 2 diabetes mellitus without complication, without long- term current use of insulin E11.9 [facility] [id number] [place] [address] 35364- 7013 Apr, Essential hypertension I10 [facility] [id number] [place] [address] 91429- 4019 Mar, [facility] [id number] [place] [address] 39416- 8887 Mar, [facility] [id number] [place] [address] 54834- 0907 Mar, Osteoarthritis of spine with radiculopathy, cervical region M47.22 [facility] [id number] [place] [address] 70635- 8806 Mar, [facility] [id number] [place] [address] 80027- 7322 Feb, [facility] [id number] [place] [address] 04328- 4951 Feb, Screening breast examination Z12.31 ; Bilateral carotid artery disease I77.9 ; Low back pain M54.5 ; Osteoarthritis of spine with radiculopathy, cervical region M47.22 ; Renal insufficiency N28.9 ; Vitamin D deficiency E55.9 ; Restless leg syndrome G25.81 ; Acquired hypothyroidism E03.9 ; Coronary artery disease involving tejon coronary artery of tejon heart without angina pectoris I25.10 ; Vertigo R42 ; Essential hypertension I10 ; Type 2 diabetes mellitus with diabetic chronic kidney disease E11.22 and Encounter for immunization Z23 [facility] [id number] [place] [address] 99703- 6131 Jan, [facility] [id number] [place] [address] 46680- 0933 Jan, Type 2 diabetes mellitus without complication, without long- term current use of insulin E11.9 ; Low back pain M54.5 ; Osteoarthritis of spine with radiculopathy, cervical region M47.22 ; Renal insufficiency N28.9 ; Vitamin D deficiency E55.9 ; Restless leg syndrome G25.81 ; Bilateral carotid artery disease I77.9 ; Acquired hypothyroidism E03.9 ; Coronary artery disease involving tejon coronary artery of tejon heart without angina pectoris I25.10 and Lipoma of back D17.1 [facility] [id number] [place] [address] 46604- 3639 Jan, Type 2 diabetes mellitus without complication, without long- term current use of insulin E11.9 [facility] [id number] [place] [address] 03101- 2530 Dec, Osteoarthritis of spine with radiculopathy, cervical region M47.22 [facility] [id number] [place] [address] 64133- 4208 Nov, [facility] [id number] [place] [address] 64417- 2219 Nov, Low back pain M54.5 and Osteoarthritis of spine with radiculopathy, cervical region M47.22 [facility] [id number] [place] [address] 50127- 5209 Nov, Osteoarthritis of spine with radiculopathy, cervical [...] hypothyroidism E03.9 ; Coronary artery disease involving tejon coronary artery of tejon heart without angina pectoris I25.10 ; Hypercalcemia E83.52 and Left foot pain M79.672 [facility] [id number] [place] [address] 92719- 2896 Oct, [facility] [id number] [place] [address] 88908- 1565 14 Oct, 2016 Osteoarthritis of spine with radiculopathy, cervical region M47.22 [facility] [id number] [place] [address] 80086- 4961 05 Oct, 2016 Abnormal blood chemistry R79.9 [facility] [id number] [place] [address] 50049- 6343 September, Osteoarthritis of spine with radiculopathy, cervical region M47.22 ; Essential hypertension I10 ; Renal insufficiency N28.9 ; Type 2 diabetes mellitus without complication, without long-term current use of insulin E11.9 ; Vitamin D deficiency E55.9 ; Paresthesia of both hands R20.2 ; Low back pain M54.5 ; Restless leg syndrome G25.81 and Dizziness R42 [facility] [id number] [place] [address] 00216- 3423 September, [facility] [id number] [place] [address] 45082- 6074 September, [facility] [id number] [place] [address] 36560- 8226 September, [facility] [id number] [place] [address] 30443- 2454 September, [facility] [id number] [place] [address] 03310- 5977 Aug, [facility] [id number] [place] [address] 49809- 7644 Aug, [facility] [id number] [place] [address] 44284- 9939 Aug, [facility] [id number] [place] [address] 61396- 2217 Aug, [facility] [id number] [place] [address] 88123- 3629 Aug, Osteoarthritis of spine with radiculopathy, cervical region M47.22 [facility] [id number] [place] [address] 68221- 4071 Aug, Essential hypertension I10 ; Renal insufficiency N28.9 ; Type 2 diabetes mellitus without complication, without long-term current use of insulin E11.9 ; Vitamin D deficiency E55.9 ; Paresthesia of both hands R20.2 ; Low back pain M54.5 ; Restless leg syndrome G25.81 ; Osteoarthritis of spine with radiculopathy, cervical region M47.22 and Dizziness R42 [facility] [address] 95107- 7806 Jul, [facility] [address] 30701- 2723 Jul, [facility] [address] 79726- 5226 Jul, Essential hypertension I10 ; Paresthesia of both hands R20.2 ; Upper respiratory tract infection, unspecified type J06.9 and Low back pain M54.5 [facility] [id number] [place] [address] 64512- 2272 15 Jul, 2016 [facility] [id number] [place] [address] 93959- 1711 Jul, [facility] [address] 35274- 0966 09 Jul, 2016 Renal insufficiency N28.9 ; Vitamin D deficiency E55.9 ; Type 2 diabetes mellitus without complication, without long-term current use of insulin E11.9 ; Restless leg syndrome G25.81 ; Type 2 diabetes mellitus with diabetic chronic kidney disease E11.22 and Chronic kidney disease, stage 1 N18.1 [facility] [id number] [place] [address] 15038- 4593 07 Jul, 2016 Renal insufficiency N28.9 [facility] [address], [place] [address]- 7610 10 Jun, 2016 [facility] [id number] [place] [address] 74800- 6234 07 Jun, 2016 Renal insufficiency N28.9 ; Vitamin D deficiency E55.9 ; Type 2 diabetes mellitus without complication, without long-term current use of insulin E11.9 ; Restless leg syndrome G25.81 ; Type 2 diabetes mellitus with diabetic chronic kidney disease E11.22 and Chronic kidney disease, stage 1 N18.1 [facility] [address], [place] [address]- 9202 Jun, [facility] [id number] [address]- 6253 May, [facility] [address], [place] [address]- 5994 May, [facility] [address], [place] [address]- 1637 May, [facility] [address], [place] [address]- 5672 May, [facility] [address], [place] [address]- 5991 May, [facility] [address], [place] [address]- 0580 Apr, Acquired hypothyroidism E03.9 ; Essential hypertension I10 ; Type 2 diabetes mellitus without complication, without long-term current use of insulin E11.9 and Mixed hyperlipidemia E78.2 [facility] [id number] [address]- 2373 Apr, Type 2 diabetes mellitus without complication, without long- term current use of insulin E11.9 ; Coronary artery disease involving tejon coronary artery of tejon heart without angina pectoris I25.10 ; Essential hypertension I10 and Acquired hypothyroidism E03.9 [facility] [address], [place] [address]- 8507 Apr, Cellulitis of left lower extremity L03.116 [facility] [id number] [place] [address] 30572- 9264 20 Apr, 2016 Essential hypertension I10 ; Mixed hyperlipidemia E78.2 ; Type 2 diabetes mellitus without complication, without long-term current use of insulin E11.9 ; Acquired hypothyroidism E03.9 ; Cellulitis of left lower extremity L03.116 and Coronary artery disease involving tejon coronary artery of tejon heart without angina pectoris I25.10 [facility] [id number] [place] [address] 20572- 9894 14 Apr, [address] [facility] [id number] [place] [address] 00674 -8174 Dec, Dermatitis L30.9 [facility] [id number] [place] [address] 28627- 3248 14 Aug, 2014 [facility] [id number] [place] [address] 23579- 2168 Aug, [facility] [id number] [place] [address] 68371- 3707 Jan, [facility] [id number] [place] [address] 70637- 4894 Jan, [facility] [id number] [place] [address] 12194- 3195 Jun, [facility] [id number] [place] [address] 80266- 9860 May, [facility] [id number] [place] [address] 480104- 1528 May, [facility] [id number] [place] [address] 736436- 7075 May, [facility] [id number] [place] [address] 754432- 8166 Apr, [facility] [id number] [place] [address] 855387- 8935 Feb, [facility] [address] [facility] [id number] [address]- 6191 Feb, [facility] [id number] [address]- 2130 Nov, [facility] [id number], [place] [address]- 7680 Nov, [facility] [address], [place] [address]- 6402 Nov, [facility] [id number], [place] [address]- 0406 Nov, [facility] [address], [place] [address]- 1207 Nov, [facility] [address], [place] [address]- 3666 Nov, [facility] [id number], [place] [address]- 3880 Nov, IMMUNIZATIONS No Known Immunizations SOCIAL HISTORY Never Assessed REASON FOR VISIT Controlled Med Refill PLAN OF CARE VITAL SIGNS MEDICATIONS Medication Instructions Dosage Frequency Start Date End Date Duration Status Hydrocodone-Acetaminophen 5-325 MG Orally 3 times a day 1/2-1 tablet as needed 8h September, 28 days Active RESULTS No Results PROCEDURES No Known procedures INSTRUCTIONS MEDICATIONS ADMINISTERED No Known Medications MEDICAL (GENERAL) HISTORY Type Description Date Medical History type II diabetes Medical History Hypothyroidism Medical History hypertension Medical History heart disease Medical History Hyperlipidemia Medical History CAD Medical History Sent circumflex Artery Aile Medical History Paresthesia of both hands Medical History Vertigo Surgical History cholecystectomy Surgical History hernia repair Surgical History carotid endarterectomy Surgical History 2 stents placed-cardiac Surgical History cataract surgery Hospitalization History black out spells Hospitalization History Surgery(s) only
--- OUTSIDE RECORDS SUMMARY | 2018-04-05 19:59 | XMS REPORT ---
Author Author SAKSHI TIDWELL Organization [facility], [place] Address [address] [place] [address] Care Team Providers Care Rn Case Mgr Name Role Phone SAKSHI TIDWELL Unavailable PROBLEMS Type Condition ICD9-CM Code IRG52-LH Code Onset Dates Condition Status SNOMED Code Problem Mixed hyperlipidemia E78.2 Active 454605632 Problem Restless leg syndrome G25.81 Active 61135835 Problem Acquired hypothyroidism E03.9 Active 479275632 Problem Hypercalcemia E83.52 Active 09611996 Problem Bilateral carotid artery disease I77.9 Active 083702332 Problem Chronic kidney disease, stage 1 N18.1 Active 130782179 Problem Type 2 diabetes mellitus with diabetic chronic kidney disease E11.22 Active 56377715 Problem Osteoarthritis of spine with radiculopathy, cervical region M47.22 Active 889291998 Problem Low back pain M54.5 Active 273126053 Problem Vitamin D deficiency E55.9 Active 13653581 Problem Coronary artery disease involving levelock coronary artery of levelock heart without angina pectoris I25.10 Active 9577229429449 Problem Essential hypertension I10 Active 32025018 Problem Renal insufficiency N28.9 Active 038508708 Problem Type 2 diabetes mellitus without complication, without long-term current use of insulin E11.9 Active 280462746 ALLERGIES Substance Reaction Event Type Date Status Bydureon leg irritation with knot at inj site Drug Allergy Aug, Active Bactrim DS Unknown Drug Allergy Aug, Active ENCOUNTERS Encounter Location Date Diagnosis [facility], [place] [address] [facility] [id number] [address] Dec, [facility] [place] [address] [facility] [id number], [place] [address] Nov, Coronary artery disease involving levelock coronary artery of levelock heart without angina pectoris I25.10 [facility] [place] [address] [facility] [id number] [place] [address] 11662- 6310 Nov, Acquired hypothyroidism E03.9 and Vertigo R42 [place] [address] [address] Nov, Encounter for well woman exam Z01.419 ; Screening for osteoporosis Z13.820 and Screening for colon cancer Z12.11 [place] [address] [address]- 1663 Oct, Coronary artery disease involving levelock coronary artery of levelock heart without angina pectoris I25.10 [place] [address] 9[address]34- 1542 September, [place] [address] [address]- 4862 September, [place] [address] [place] [id number] [place] [address] 67181- 1408 Aug, Type 2 diabetes mellitus without complication, without long- term current use of insulin E11.9 ; Essential hypertension I10 ; Acquired hypothyroidism E03.9 and Low back pain M54.5 [place] [address] [address]- [address] Aug, [place] [address] [place] [id number] [place] [address] 13666- 2443 Aug, [place] [address] [place] [id number] [place] [address] 43339- 0349 Jul, [place] [address] [place] [id number] [place] [address] 42899- 8406 Jul, Coronary artery disease involving levelock coronary artery of levelock heart without angina pectoris I25.10 [place] [address] [place] [id number] [place] [address] 75938- 1589 Jun, Low back pain M54.5 and Essential hypertension I10 [place] [address] [place] [id number] [place] [address] 84327- 6456 Jun, Head cold J00 [place] [id number] [place] [address] 84632- 8177 May, [place] [address] [place] [id number] [place] [address] 56726- 6013 Apr, Type 2 diabetes mellitus without complication, without long- term current use of insulin E11.9 [place] [address] [place] [id number] [place] [address] 12964- 7090 12 Apr, 2017 Type 2 diabetes mellitus without complication, without long- term current use of insulin E11.9 [place] [address] [place] [id number] [place] [address] 37003- 6353 Apr, Essential hypertension I10 [address] [address]- [address] Mar, [place] [address] [address]- 3014 Mar, [place] [address] [place] [id number] [place] [address] 89534- 0560 Mar, Osteoarthritis of spine with radiculopathy, cervical region M47.22 [place] [id number] [place] [address] 17866- 7316 Mar, [place] [address] [place] [id number] [place] [address] 30053- 5617 Feb, [place] [id number] [place] [address] 08374- 6781 Feb, Screening breast examination Z12.31 ; Bilateral carotid artery disease I77.9 ; Low back pain M54.5 ; Osteoarthritis of spine with radiculopathy, cervical region M47.22 ; Renal insufficiency N28.9 ; Vitamin D deficiency E55.9 ; Restless leg syndrome G25.81 ; Acquired hypothyroidism E03.9 ; Coronary artery disease involving levelock coronary artery of levelock heart without angina pectoris I25.10 ; Vertigo R42 ; Essential hypertension I10 ; Type 2 diabetes mellitus with diabetic chronic kidney disease E11.22 and Encounter for immunization Z23 [id number] [place] [address] 50708- 1647 Jan, [place] [address] 15375- 5766 Jan, Type 2 diabetes mellitus without complication, without long- term current use of insulin E11.9 ; Low back pain M54.5 ; Osteoarthritis of spine with radiculopathy, cervical region M47.22 ; Renal insufficiency N28.9 ; Vitamin D deficiency E55.9 ; Restless leg syndrome G25.81 ; Bilateral carotid artery disease I77.9 ; Acquired hypothyroidism E03.9 ; Coronary artery disease involving levelock coronary artery of levelock heart without angina pectoris I25.10 and Lipoma of back D17.1 [place] [address] [place] [id number] [place] [address] 91011- 8063 Jan, Type 2 diabetes mellitus without complication, without long- term current use of insulin E11.9 [place] [address] 70388- 1320 Dec, Osteoarthritis of spine with radiculopathy, cervical region M47.22 [place] [address] [place] [id number] [place] [address] 87343- 5480 Nov, [place] [address] [place] [id number] [place] [address] 67546- 2578 Nov, Low back pain M54.5 and Osteoarthritis of spine with radiculopathy, cervical region M47.22 [place] [address] [place] [id number] [place] [address] 00317- 9869 Nov, Osteoarthritis of spine with radiculopathy, cervical [...] hypothyroidism E03.9 ; Coronary artery disease involving levelock coronary artery of levelock heart without angina pectoris I25.10 ; Hypercalcemia E83.52 and Left foot pain M79.672 [facility], [place] [address] [place] [id number] [place] [address] 35276- 0278 Oct, [facility] [place] [address] [place] [id number] [place] [address] 14864- 3099 14 Oct, 2016 Osteoarthritis of spine with radiculopathy, cervical region M47.22 [facility] [place] [address] [place] [id number] [place] [address] 18861- 8562 05 Oct, 2016 Abnormal blood chemistry R79.9 [place] [address] [place] [id number] [place] [address] 39272- 3610 September, Osteoarthritis of spine with radiculopathy, cervical region M47.22 ; Essential hypertension I10 ; Renal insufficiency N28.9 ; Type 2 diabetes mellitus without complication, without long-term current use of insulin E11.9 ; Vitamin D deficiency E55.9 ; Paresthesia of both hands R20.2 ; Low back pain M54.5 ; Restless leg syndrome G25.81 and Dizziness R42 [place] [address] [place] [id number] [place] [address] 18178- 1735 September, [facility] [place] [address] [place] [id number] [place] [address] 74682- 9059 September, [facility] [place] [address] [place] [id number] [place] [address] 72693- 0760 September, [facility] [place] [address] [place] [id number] [place] [address] 21567- 5930 September, [facility] [place] [address] [place] [id number] [place] [address] 52237- 4253 Aug, [facility] [place] [address] [place] [id number] [place] [address] 97337- 1423 Aug, [facility] [place] [address] [place] [id number] [place] [address] 58850- 6155 Aug, [facility] [place] [address] [place] [address] 17 Aug, 2016 [place] [id number] [place] [id number] [place] [address] 00211- 5861 Aug, Osteoarthritis of spine with radiculopathy, cervical region M47.22 [place] [id number] [place] [address] 97763- 5870 05 Aug, 2016 Essential hypertension I10 ; Renal insufficiency N28.9 ; Type 2 diabetes mellitus without complication, without long-term current use of insulin E11.9 ; Vitamin D deficiency E55.9 ; Paresthesia of both hands R20.2 ; Low back pain M54.5 ; Restless leg syndrome G25.81 ; Osteoarthritis of spine with radiculopathy, cervical region M47.22 and Dizziness R42 [place] [address] [place] [id number] [place] [address] 49417- 3080 Jul, [place] [address] [place] [id number] [place] [address] 31604- 2123 Jul, [place] [address] [place] [id number] [place] [address] 73320- 9586 Jul, Essential hypertension I10 ; Paresthesia of both hands R20.2 ; Upper respiratory tract infection, unspecified type J06.9 and Low back pain M54.5 [place] [address] [place] [id number] [place] [address] 93521- 7073 15 Jul, 2016 [place] [address] [place] [id number] [place] [address] 75736- 9170 Jul, [place] [address] [place] [id number] [place] [address] 10934- 4925 09 Jul, 2016 Renal insufficiency N28.9 ; Vitamin D deficiency E55.9 ; Type 2 diabetes mellitus without complication, without long-term current use of insulin E11.9 ; Restless leg syndrome G25.81 ; Type 2 diabetes mellitus with diabetic chronic kidney disease E11.22 and Chronic kidney disease, stage 1 N18.1 [place] [address] [place] [id number] [place] [address] 32264- 3671 Jul, Renal insufficiency N28.9 [facility], [place] [id number] [place] [address] 48029- 0790 Jun, [facility] [place] [address] [place] [id number] [place] [address] 13381- 2232 07 Jun, 2016 Renal insufficiency N28.9 ; Vitamin D deficiency E55.9 ; Type 2 diabetes mellitus without complication, without long-term current use of insulin E11.9 ; Restless leg syndrome G25.81 ; Type 2 diabetes mellitus with diabetic chronic kidney disease E11.22 and Chronic kidney disease, stage 1 N18.1 [place] [address] [place] [id number] [place] [address] 01953- 5383 Jun, [place] [address] [place] [id number] [place] [address] 44846- 5504 May, [place] [address] [place] [id number] [place] [address] 55295- 7835 May, [facility] [place] [address] [place] [id number] [place] [address] 18320- 6378 May, [facility] [place] [address] [place] [id number] [place] [address] 87634- 7239 May, [facility] [place] [address] [place] [id number] [place] [address] 51690- 5474 May, [place] [address] [place] [id number] [place] [address] 16645- 9588 Apr, Acquired hypothyroidism E03.9 ; Essential hypertension I10 ; Type 2 diabetes mellitus without complication, without long-term current use of insulin E11.9 and Mixed hyperlipidemia E78.2 [facility], [place] [id number] [place] [address] 91951- 0325 Apr, Type 2 diabetes mellitus without complication, without long- term current use of insulin E11.9 ; Coronary artery disease involving levelock coronary artery of levelock heart without angina pectoris I25.10 ; Essential hypertension I10 and Acquired hypothyroidism E03.9 [facility], [place] [address] [address]- 7367 21 Apr, 2016 Cellulitis of left lower extremity L03.116 [facility], [place] [address] [place] [id number] [place] [address] 60352- 3909 20 Apr, 2016 Essential hypertension I10 ; Mixed hyperlipidemia E78.2 ; Type 2 diabetes mellitus without complication, without long-term current use of insulin E11.9 ; Acquired hypothyroidism E03.9 ; Cellulitis of left lower extremity L03.116 and Coronary artery disease involving levelock coronary artery of levelock heart without angina pectoris I25.10 [facility] [place] [address] [address]- 0564 14 Apr, 2016 [facility] [address] [place] [id number] [place] [address] 69363 -3040 Dec, Dermatitis L30.9 [facility] [place] [address] [place] [id number] [place] [address] 69234- 3199 14 Aug, 2014 [facility] [place] [address] [place] [id number] [place] [address] 82929- 5978 Aug, [facility] [place] [id number] [place] [address] 46975- 5352 Jan, [facility], [place] [address] [id number] [address]- 3263 Jan, [facility], [place] [address] [address]- 7185 Jun, [facility] [place] [address] [address]- 8504 May, [facility] [place] [address] [address]- 5766 May, [facility] [place] [id number] [place] [address] 740099- 1472 May, [facility] [place] [address] [address]- 8073 Apr, [facility] [place] [address] [place] [id number] [address]- 4596 Feb, [facility] [place] [address] [place] [id number] [address]- 9382 Feb, [facility] [place] [address] [address]- 5446 Nov, [facility] [place] [address] [address]- 7092 Nov, [facility] [place] [address] [address]- 6908 Nov, [facility] [place] [address] [address]- 1304 Nov, [facility] [place] [address] [address]- 8636 Nov, [facility] [place] [address] [address]- 0982 Nov, [facility] [place] [address] [place] [id number] [address]- 7253 Nov, IMMUNIZATIONS No Known Immunizations SOCIAL HISTORY Never Assessed REASON FOR VISIT DM follow up-Meredith, Refill request for levothyroxine, HCTZ, Flexeril, and Metoprolol PLAN OF CARE Activity Details Follow Up 6 Months Reason:DM VITAL SIGNS Height 64.5 in 2017-08-28 Weight 162 lbs 2017-08-28 Temperature 97.6 degrees Fahrenheit 2017-08-28 Heart Rate 68 bpm 2017-08-28 Respiratory Rate 20 2017-08-28 BMI 27.37 kg/m2 2017-08-28 Blood pressure systolic 118 mmHg 2017-08-28 Blood pressure diastolic 82 mmHg 2017-08-28 MEDICATIONS Medication Instructions Dosage Frequency Start Date End Date Duration Status Cyclobenzaprine HCl 10 mg Orally Once a day 1/2 to 1 tablet as needed at bedtime 24h 30 Active Lancets 30G - as directed Apr, Active Clopidogrel Bisulfate 75 MG Orally Once a day 1 tablet 24h Active Lisinopril 10 MG TAKE ONE TABLET BY MOUTH ONCE DAILY 90 Active BD Pen Needle Mini U/F 31G X 5 MM USE ONCE DAILY 30 Active Metoprolol Tartrate 25 MG Orally Once a day 1/2 tablet 24h 90 Active Pen [place] 30G X 5 MM as directed 24h Active Flonase Allergy Relief 50 MCG/ACT Nasally Once a day 1 spray in each nostril 24h 20 Jun, 2017 30 day(s) Active Hydrochlorothiazide 25 MG TAKE ONE TABLET BY MOUTH ONCE DAILY 90 Active Hydrocodone-Acetaminophen 5-325 MG Orally 3 times a day 1/2-1 tablet as needed 8h Aug, 28 days Active Fenofibrate 145 MG Orally Once a day 1 tablet 24h Active Vitamin B-12 50 MCG Active Isosorbide Mononitrate 60 mg Orally Once a day 1 tablet 24h Active Levothyroxine Sodium 75 mcg Orally Once a day 1 tablet on an empty stomach in the morning 24h 90 Active True Metrix Blood Glucose Test - TEST ONCE A DAY AND ONCE MORE NEEDED Active Aspirin 81 MG Orally Once a day 1 tablet 24h Active ProAir HFA 108 (90 Base) MCG/ACT Inhalation 3 times a day 2 puffs as needed 8h Jul, 10 days Active Meclizine HCl 25 MG Orally 3 times a day 1 tablet as needed 8h 28 days Active Requip 0.5 MG TAKE ONE TABLET BY MOUTH ONCE DAILY 1 TO 3 HOURS BEFORE BEDTIME 30 Active Clotrimazole-Betamethasone 1-0.05 % Externally Twice a day 1 application to affected area 12h Active Potassium Chloride Corie ER 10 MEQ Orally Once a day 1 tablet with food 24h 30 Active Fish Oil 1000 MG Orally twice a day 1 capsule 12h Active Trulicity 0.75 MG/0.5ML INJECT 0.5 MLS SUBCUTANEOUSLY ONCE WEEKLY Active Gabapentin 100 mg Orally three times a day prn 1 capsule Active Rosuvastatin Calcium 20 mg Orally Once a day 1 tablet 24h 90 days Active RESULTS Name Result Date Reference Range A1C (IN HOUSE) 2017-08-28 A1C IN HOUSE 5.9 4.3 - 5.6 % Previous A1c 5.1 Lot [id number] Exp date 06/2019 PROCEDURES Procedure Date Ordered Result Body Site GLYCATED HEMOGLOBIN TEST August 28, 2017 INSTRUCTIONS MEDICATIONS ADMINISTERED No Known Medications [...]
--- OUTSIDE RECORDS SUMMARY | 2018-04-05 19:59 | XMS REPORT ---
Author Author SAKSHI TIDWELL Organization [facility] Address [address] [place] [address] Care Team Providers Care Limousine Driver Name Role Phone SAKSHI TIDWELL Unavailable PROBLEMS Type Condition ICD9-CM Code CCE03-MQ Code Onset Dates Condition Status SNOMED Code Problem Mixed hyperlipidemia E78.2 Active 205999664 Problem Restless leg syndrome G25.81 Active 61739765 Problem Acquired hypothyroidism E03.9 Active 900180925 Problem Hypercalcemia E83.52 Active 13795055 Problem Bilateral carotid artery disease I77.9 Active 824597495 Problem Chronic kidney disease, stage 1 N18.1 Active 156085098 Problem Type 2 diabetes mellitus with diabetic chronic kidney disease E11.22 Active 94213998 Problem Osteoarthritis of spine with radiculopathy, cervical region M47.22 Active 579066996 Problem Low back pain M54.5 Active 143591621 Problem Vitamin D deficiency E55.9 Active 10711189 Problem Coronary artery disease involving [place] coronary artery of [place] heart without angina pectoris I25.10 Active 8665947637122 Problem Essential hypertension I10 Active 66667461 Problem Renal insufficiency N28.9 Active 270187577 Problem Type 2 diabetes mellitus without complication, without long-term current use of insulin E11.9 Active 149975353 ALLERGIES No Information ENCOUNTERS Encounter Location Date Diagnosis [facility] [id number], [place] [address] Nov, Coronary artery disease involving [place] coronary artery of [place] heart without angina pectoris I25.10 [place] [id number], [place] [address] Nov, Acquired hypothyroidism E03.9 and Vertigo R42 [facility] [id number], [place] [address] Nov, Encounter for well woman exam Z01.419 ; Screening for osteoporosis Z13.820 and Screening for colon cancer Z12.11 [place] [id number] [place] [address] 73239- 5243 Oct, Coronary artery disease involving [place] coronary artery of [place] heart without angina pectoris I25.10 [place] [id number] [place] [address] 90178- 3594 September, [place] [address] [address]- [address] September, [place] [id number] [place] [address] 75608- 2978 Aug, Type 2 diabetes mellitus without complication, without long- term current use of insulin E11.9 ; Essential hypertension I10 ; Acquired hypothyroidism E03.9 and Low back pain M54.5 [place] [address] [address]- [address] Aug, [place] [id number] [place] [address] 13808- 2876 Aug, [place] [id number] [place] [address] 08915- 7451 Jul, [place] [id number] [place] [address] 16958- 3806 Jul, Coronary artery disease involving [place] coronary artery of [place] heart without angina pectoris I25.10 [place] [id number] [place] [address] 11500- 5220 Jun, Low back pain M54.5 and Essential hypertension I10 [place] [id number] [place] [address] 25883- 9981 Jun, Head cold J00 [place] [id number] [place] [address] 57705- 5320 May, [place] [id number] [place] [address] 57201- 7831 Apr, Type 2 diabetes mellitus without complication, without long- term current use of insulin E11.9 [place] [address], [place] [address] Apr, Type 2 diabetes mellitus without complication, without long- term current use of insulin E11.9 [place] [id number] [place] [address] 99228- 4014 Apr, Essential hypertension I10 [place] [id number] [place] [address] 92257- 1681 Mar, [place] [id number] [place] [address] 13899- 2877 Mar, [place] [id number] [place] [address] 50118- 3922 Mar, Osteoarthritis of spine with radiculopathy, cervical region M47.22 [place] [id number] [place] [address] 08642- 6020 Mar, [place] [id number] [place] [address] 21300- 6868 Feb, [place] [id number] [place] [address] 63860- 5108 Feb, Screening breast examination Z12.31 ; Bilateral carotid artery disease I77.9 ; Low back pain M54.5 ; Osteoarthritis of spine with radiculopathy, cervical region M47.22 ; Renal insufficiency N28.9 ; Vitamin D deficiency E55.9 ; Restless leg syndrome G25.81 ; Acquired hypothyroidism E03.9 ; Coronary artery disease involving [place] coronary artery of [place] heart without angina pectoris I25.10 ; Vertigo R42 ; Essential hypertension I10 ; Type 2 diabetes mellitus with diabetic chronic kidney disease E11.22 and Encounter for immunization Z23 [place] [id number] [place] [address] 96062- 3108 Jan, [place] [id number] [place] [address] 14919- 2492 Jan, Type 2 diabetes mellitus without complication, without long- term current use of insulin E11.9 ; Low back pain M54.5 ; Osteoarthritis of spine with radiculopathy, cervical region M47.22 ; Renal insufficiency N28.9 ; Vitamin D deficiency E55.9 ; Restless leg syndrome G25.81 ; Bilateral carotid artery disease I77.9 ; Acquired hypothyroidism E03.9 ; Coronary artery disease involving [place] coronary artery of [place] heart without angina pectoris I25.10 and Lipoma of back D17.[address] [address]- [address] Jan, Type 2 diabetes mellitus without complication, without long- term current use of insulin E11.[address] 9[address]40- 2832 Dec, Osteoarthritis of spine with radiculopathy, cervical region M47.22 [id number] [place] [address] 38930- 1356 Nov, [place] [address] 29652- 8158 Nov, Low back pain M54.5 and Osteoarthritis of spine with radiculopathy, cervical region M47.[address] [address]- 8608 Nov, Osteoarthritis of spine with radiculopathy, cervical [...] hypothyroidism E03.9 ; Coronary artery disease involving [place] coronary artery of [place] heart without angina pectoris I25.10 ; Hypercalcemia E83.52 and Left foot pain M79.672 [place] [id number] [place] [address] 54756- 9371 Oct, [id number] [place] [address] 37933- 0301 Oct, Osteoarthritis of spine with radiculopathy, cervical region M47.22 [facility] [id number] [place] [address] 26933- 3726 05 Oct, 2016 Abnormal blood chemistry R79.9 [facility] [id number] [place] [address] 90839- 4742 September, Osteoarthritis of spine with radiculopathy, cervical region M47.22 ; Essential hypertension I10 ; Renal insufficiency N28.9 ; Type 2 diabetes mellitus without complication, without long-term current use of insulin E11.9 ; Vitamin D deficiency E55.9 ; Paresthesia of both hands R20.2 ; Low back pain M54.5 ; Restless leg syndrome G25.81 and Dizziness R42 [facility] [id number] [place] [address] 71502- 5927 September, [facility] [id number] [place] [address] 38509- 1811 September, [facility] [id number] [place] [address] 75509- 4643 September, [facility] [id number] [place] [address] 78278- 7072 September, [facility] [id number] [place] [address] 58694- 6752 Aug, [facility] [id number] [place] [address] 54555- 1615 Aug, [facility] [id number] [place] [address] 29007- 2249 Aug, [facility] [id number] [place] [address] 02981- 5557 Aug, [facility] [id number] [place] [address] 19191- 8809 Aug, Osteoarthritis of spine with radiculopathy, cervical region M47.22 [place] [address], [place] [address] 05 Aug, 2016 Essential hypertension I10 ; Renal insufficiency N28.9 ; Type 2 diabetes mellitus without complication, without long-term current use of insulin E11.9 ; Vitamin D deficiency E55.9 ; Paresthesia of both hands R20.2 ; Low back pain M54.5 ; Restless leg syndrome G25.81 ; Osteoarthritis of spine with radiculopathy, cervical region M47.22 and Dizziness R42 [place] [id number] [place] [address] 23755- 0294 Jul, [place] [id number] [place] [address] 88756- 0997 Jul, [place] [id number] [place] [address] 72326- 1302 Jul, Essential hypertension I10 ; Paresthesia of both hands R20.2 ; Upper respiratory tract infection, unspecified type J06.9 and Low back pain M54.5 [place] [id number] [place] [address] 10368- 0989 Jul, [place] [id number] [place] [address] 85175- 4857 Jul, [place] [id number] [place] [address] 60752- 5755 Jul, Renal insufficiency N28.9 ; Vitamin D deficiency E55.9 ; Type 2 diabetes mellitus without complication, without long-term current use of insulin E11.9 ; Restless leg syndrome G25.81 ; Type 2 diabetes mellitus with diabetic chronic kidney disease E11.22 and Chronic kidney disease, stage 1 N18.1 [place] [id number] [place] [address] 86870- 7044 07 Jul, 2016 Renal insufficiency N28.9 [place] [id number] [place] [address] 09173- 8280 Jun, [place] [id number] [place] [address] 05714- 9640 07 Jun, 2016 Renal insufficiency N28.9 ; Vitamin D deficiency E55.9 ; Type 2 diabetes mellitus without complication, without long-term current use of insulin E11.9 ; Restless leg syndrome G25.81 ; Type 2 diabetes mellitus with diabetic chronic kidney disease E11.22 and Chronic kidney disease, stage 1 N18.1 [place] [id number] [place] [address] 81568- 2850 Jun, [place] [id number] [place] [address] 86546- 7395 May, [place] [id number] [place] [address] 97506- 6988 May, [place] [id number] [place] [address] 56738- 2930 May, [place] [id number] [place] [address] 18254- 1414 May, [place] [id number] [place] [address] 04362- 1814 May, [place] [id number] [place] [address] 79352- 5570 Apr, Acquired hypothyroidism E03.9 ; Essential hypertension I10 ; Type 2 diabetes mellitus without complication, without long-term current use of insulin E11.9 and Mixed hyperlipidemia E78.2 [place] [id number] [place] [address] 77348- 7459 Apr, Type 2 diabetes mellitus without complication, without long- term current use of insulin E11.9 ; Coronary artery disease involving [place] coronary artery of [place] heart without angina pectoris I25.10 ; Essential hypertension I10 and Acquired hypothyroidism E03.9 [place] [id number] [place] [address] 08691- 5405 Apr, Cellulitis of left lower extremity L03.116 [place] [id number] [place] [address] 68699- 2108 Apr, Essential hypertension I10 ; Mixed hyperlipidemia E78.2 ; Type 2 diabetes mellitus without complication, without long-term current use of insulin E11.9 ; Acquired hypothyroidism E03.9 ; Cellulitis of left lower extremity L03.116 and Coronary artery disease involving [place] coronary artery of [place] heart without angina pectoris I25.10 [facility] [address] [address]- 3147 14 Apr, 2016 [facility] [id number] [place] [address] 20282 -9154 Dec, Dermatitis L30.9 [facility] [id number] [place] [address] 86127- 1670 Aug, [facility] [id number] [place] [address] 79051- 0638 Aug, [facility] [address] [place] [address] 59824- 1252 Jan, [facility] [id number] [place] [address] 40112- 2485 Jan, [facility] [address] [place] [address] 81084- 8782 Jun, [facility] [address], [place] [address]- 2885 May, [facility] [address], [place] [address]- 5622 May, [facility] [address] [place] [address]- 7883 May, [facility] [address], [place] [address]- 4264 Apr, [facility] [address] [place] [address] 122270- 0532 Feb, [facility] [address], [place] [address]- 0507 Feb, [facility] [id number] [address]- 1783 19 Nov, 2011 [facility] [id number], [place] [address]- 1520 18 Nov, 2011 [facility] [id number], [place] [address]- 8861 16 Nov, 2011 [facility] [id number], [place] [address]- 5022 13 Nov, 2011 [facility] [address], [place] [address]- 8447 10 Nov, 2011 [facility] [id number], [place] [address]- 4288 10 Nov, 2011 [facility] [id number], [place] [address]- 2465 Nov, IMMUNIZATIONS No Known Immunizations SOCIAL HISTORY [...]
--- OUTSIDE RECORDS SUMMARY | 2018-04-05 20:00 | XMS REPORT ---
Author Author SAKSHI TIDWELL Organization [facility] Address [address] [place] [address] Care Team Providers Care Quality Control Engineer Name Role Phone SAKSHI TIDWELL Unavailable PROBLEMS Type Condition ICD9-CM Code OSX51-LE Code Onset Dates Condition Status SNOMED Code Problem Mixed hyperlipidemia E78.2 Active 607855515 Problem Restless leg syndrome G25.81 Active 79044722 Problem Acquired hypothyroidism E03.9 Active 680522285 Problem Hypercalcemia E83.52 Active 60916841 Problem Bilateral carotid artery disease I77.9 Active 954430302 Problem Chronic kidney disease, stage 1 N18.1 Active 676585073 Problem Type 2 diabetes mellitus with diabetic chronic kidney disease E11.22 Active 04296882 Problem Osteoarthritis of spine with radiculopathy, cervical region M47.22 Active 941746337 Problem Low back pain M54.5 Active 923153959 Problem Vitamin D deficiency E55.9 Active 35306647 Problem Coronary artery disease involving [place] coronary artery of [place] heart without angina pectoris I25.10 Active [id number] Problem Essential hypertension I10 Active 17362368 Problem Renal insufficiency N28.9 Active 299083867 Problem Type 2 diabetes mellitus without complication, without long-term current use of insulin E11.9 Active 128855404 ALLERGIES No Information ENCOUNTERS Encounter Location Date Diagnosis [place] [id number] [address] Nov, Coronary artery disease involving [place] coronary artery of [place] heart without angina pectoris I25.10 [place] [id number] [address] Nov, Acquired hypothyroidism E03.9 and Vertigo R42 [facility] [id number] [address] Nov, Encounter for well woman exam Z01.419 ; Screening for osteoporosis Z13.820 and Screening for colon cancer Z12.11 [place] [id number] [place] [address] 67889- 9164 Oct, Coronary artery disease involving [place] coronary artery of [place] heart without angina pectoris I25.10 [place] [id number] [place] [address] 92445- 3232 September, [place] [address] [address]- [address] September, [place] [id number] [place] [address] 62388- 6813 Aug, Type 2 diabetes mellitus without complication, without long- term current use of insulin E11.9 ; Essential hypertension I10 ; Acquired hypothyroidism E03.9 and Low back pain M54.5 [place] [address] [address] Aug, [place] [id number] [place] [address] 46404- 1018 Aug, [place] [id number] [place] [address] 54586- 7143 Jul, [place] [id number] [place] [address] 57782- 4729 Jul, Coronary artery disease involving [place] coronary artery of [place] heart without angina pectoris I25.10 [place] [id number] [place] [address] 80856- 4224 Jun, Low back pain M54.5 and Essential hypertension I10 [place] [id number] [place] [address] 94319- 1478 Jun, Head cold J00 [place] [id number] [place] [address] 10221- 8661 May, [place] [id number] [place] [address] 73959- 5597 Apr, Type 2 diabetes mellitus without complication, without long- term current use of insulin E11.9 [place] [address] [address] Apr, Type 2 diabetes mellitus without complication, without long- term current use of insulin E11.9 [place] [id number] [place] [address] 01517- 0648 Apr, Essential hypertension I10 [place] [id number] [place] [address] 18064- 2015 Mar, [place] [id number] [place] [address] 46905- 2822 Mar, [place] [id number] [place] [address] 79548- 8739 Mar, Osteoarthritis of spine with radiculopathy, cervical region M47.22 [place] [id number] [place] [address] 43495- 4340 Mar, [place] [id number] [place] [address] 83851- 5919 Feb, [place] [id number] [place] [address] 32428- 6630 Feb, Screening breast examination Z12.31 ; Bilateral carotid artery disease I77.9 ; Low back pain M54.5 ; Osteoarthritis of spine with radiculopathy, cervical region M47.22 ; Renal insufficiency N28.9 ; Vitamin D deficiency E55.9 ; Restless leg syndrome G25.81 ; Acquired hypothyroidism E03.9 ; Coronary artery disease involving [place] coronary artery of [place] heart without angina pectoris I25.10 ; Vertigo R42 ; Essential hypertension I10 ; Type 2 diabetes mellitus with diabetic chronic kidney disease E11.22 and Encounter for immunization Z23 [place] [id number] [place] [address] 18180- 0851 Jan, [place] [id number] [place] [address] 77855- 1425 Jan, Type 2 diabetes mellitus without complication, without long- term current use of insulin E11.9 ; Low back pain M54.5 ; Osteoarthritis of spine with radiculopathy, cervical region M47.22 ; Renal insufficiency N28.9 ; Vitamin D deficiency E55.9 ; Restless leg syndrome G25.81 ; Bilateral carotid artery disease I77.9 ; Acquired hypothyroidism E03.9 ; Coronary artery disease involving [place] coronary artery of [place] heart without angina pectoris I25.10 and Lipoma of back D17.[address] [address]94- 9063 Jan, Type 2 diabetes mellitus without complication, without long- term current use of insulin E11.[address] 81323- 8704 Dec, Osteoarthritis of spine with radiculopathy, cervical region M47.22 [place] [id number] [place] [address] 42134- 1057 Nov, [place] [address] [address]26- 2540 Nov, Low back pain M54.5 and Osteoarthritis of spine with radiculopathy, cervical region M47.[address] 39357- 5412 Nov, Osteoarthritis of spine with radiculopathy, cervical [...] hypothyroidism E03.9 ; Coronary artery disease involving [place] coronary artery of [place] heart without angina pectoris I25.10 ; Hypercalcemia E83.52 and Left foot pain M79.672 [place] [id number] [place] [address] 97901- 9996 Oct, [id number] [place] [address] 98882- 8464 Oct, Osteoarthritis of spine with radiculopathy, cervical region M47.22 [facility] [id number] [place] [address] 78745- 1688 05 Oct, 2016 Abnormal blood chemistry R79.9 [facility] [id number] [place] [address] 47535- 8277 September, Osteoarthritis of spine with radiculopathy, cervical region M47.22 ; Essential hypertension I10 ; Renal insufficiency N28.9 ; Type 2 diabetes mellitus without complication, without long-term current use of insulin E11.9 ; Vitamin D deficiency E55.9 ; Paresthesia of both hands R20.2 ; Low back pain M54.5 ; Restless leg syndrome G25.81 and Dizziness R42 [facility] [id number] [place] [address] 69147- 2321 September, [facility] [id number] [place] [address] 07427- 5889 September, [facility] [id number] [place] [address] 86751- 8181 September, [facility] [id number] [place] [address] 76882- 2286 September, [facility] [id number] [place] [address] 19428- 7541 Aug, [facility] [id number] [place] [address] 66759- 7317 Aug, [facility] [id number] [place] [address] 57200- 2206 Aug, [facility] [id number] [place] [address] 77993- 6437 Aug, [facility] [id number] [place] [address] 94410- 7021 Aug, Osteoarthritis of spine with radiculopathy, cervical region M47.22 [place] [address], [place] [address] 05 Aug, 2016 Essential hypertension I10 ; Renal insufficiency N28.9 ; Type 2 diabetes mellitus without complication, without long-term current use of insulin E11.9 ; Vitamin D deficiency E55.9 ; Paresthesia of both hands R20.2 ; Low back pain M54.5 ; Restless leg syndrome G25.81 ; Osteoarthritis of spine with radiculopathy, cervical region M47.22 and Dizziness R42 [place] [id number] [place] [address] 02155- 2958 Jul, [place] [id number] [place] [address] 09241- 7638 Jul, [place] [id number] [place] [address] 09789- 0602 Jul, Essential hypertension I10 ; Paresthesia of both hands R20.2 ; Upper respiratory tract infection, unspecified type J06.9 and Low back pain M54.5 [place] [id number] [place] [address] 55992- 1883 Jul, [place] [id number] [place] [address] 02842- 7068 Jul, [place] [id number] [place] [address] 62083- 5825 Jul, Renal insufficiency N28.9 ; Vitamin D deficiency E55.9 ; Type 2 diabetes mellitus without complication, without long-term current use of insulin E11.9 ; Restless leg syndrome G25.81 ; Type 2 diabetes mellitus with diabetic chronic kidney disease E11.22 and Chronic kidney disease, stage 1 N18.1 [place] [id number] [place] [address] 84057- 8427 07 Jul, 2016 Renal insufficiency N28.9 [place] [id number] [place] [address] 39285- 8371 Jun, [place] [id number] [place] [address] 41825- 5968 07 Jun, 2016 Renal insufficiency N28.9 ; Vitamin D deficiency E55.9 ; Type 2 diabetes mellitus without complication, without long-term current use of insulin E11.9 ; Restless leg syndrome G25.81 ; Type 2 diabetes mellitus with diabetic chronic kidney disease E11.22 and Chronic kidney disease, stage 1 N18.1 [place] [id number] [place] [address] 64799- 8841 Jun, [place] [id number] [place] [address] 62109- 2977 May, [place] [id number] [place] [address] 70211- 7880 May, [place] [id number] [place] [address] 52558- 2249 May, [place] [id number] [place] [address] 18880- 4435 May, [place] [id number] [place] [address] 40296- 1127 May, [place] [id number] [place] [address] 40018- 4942 Apr, Acquired hypothyroidism E03.9 ; Essential hypertension I10 ; Type 2 diabetes mellitus without complication, without long-term current use of insulin E11.9 and Mixed hyperlipidemia E78.2 [place] [id number] [place] [address] 40512- 2797 Apr, Type 2 diabetes mellitus without complication, without long- term current use of insulin E11.9 ; Coronary artery disease involving [place] coronary artery of [place] heart without angina pectoris I25.10 ; Essential hypertension I10 and Acquired hypothyroidism E03.9 [place] [id number] [place] [address] 05405- 6702 Apr, Cellulitis of left lower extremity L03.116 [place] [id number] [place] [address] 43391- 2148 Apr, Essential hypertension I10 ; Mixed hyperlipidemia E78.2 ; Type 2 diabetes mellitus without complication, without long-term current use of insulin E11.9 ; Acquired hypothyroidism E03.9 ; Cellulitis of left lower extremity L03.116 and Coronary artery disease involving [place] coronary artery of [place] heart without angina pectoris I25.10 [facility] [address], [place] [address]- [address]65 14 Apr, 2016 [facility] [id number] [place] [address] 57704 -8589 Dec, Dermatitis L30.9 [facility] [id number] [place] [address] 15752- 1552 Aug, [facility] [id number] [place] [address] 95452- 3700 Aug, [facility] [id number] [place] [address] 99019- 7507 Jan, [facility] [id number] [place] [address] 55868- 5654 Jan, [facility] [id number] [place] [address] 57781- 2866 Jun, [facility] [address], [place] [address]- 4772 May, [facility] [address], [place] [address]- 2355 May, [facility] [address], [place] [address]- 5475 May, [facility] [address], [place] [address]- 1917 Apr, [facility] [address] [place] [address] 703837- 8932 Feb, [facility] [address], [place] [address]- 0848 Feb, [facility] [id number] [address]- 9808 19 Nov, 2011 [facility] [id number] [address]- 6883 18 Nov, 2011 [facility] [id number], [place] [address]- 0832 16 Nov, 2011 [facility] [id number] [address]- 5753 13 Nov, 2011 [facility] [address], [place] [address]- 9557 10 Nov, 2011 [facility] [id number] [address]- 4817 10 Nov, 2011 [facility] [id number] [address]- 2393 Nov, IMMUNIZATIONS No Known Immunizations SOCIAL HISTORY [...]
--- OUTSIDE RECORDS SUMMARY | 2018-04-05 20:00 | XMS REPORT ---
Author Author SAKSHI TIDWELL [facility] Address [address] [place] [address] Care Team Providers Care Tram Operator Name Role Phone SAKSHI TIDWELL Unavailable PROBLEMS Type Condition ICD9-CM Code [id number] Code Onset Dates Condition Status SNOMED Code Problem Mixed hyperlipidemia E78.2 Active 491610802 Problem Restless leg syndrome G25.81 Active 01193085 Problem Acquired hypothyroidism E03.9 Active 001004713 Problem Hypercalcemia E83.52 Active 98727109 Problem Bilateral carotid artery disease I77.9 Active 583029451 Problem Chronic kidney disease, stage 1 N18.1 Active 465228744 Problem Type 2 diabetes mellitus with diabetic chronic kidney disease E11.22 Active 78758240 Problem Osteoarthritis of spine with radiculopathy, cervical region M47.22 Active 260750197 Problem Low back pain M54.5 Active 515644340 Problem Vitamin D deficiency E55.9 Active 28282048 Problem Coronary artery disease involving tanana coronary artery of tanana heart without angina pectoris I25.10 Active 1169462123108 Problem Essential hypertension I10 Active 79949128 Problem Renal insufficiency N28.9 Active 425595625 Problem Type 2 diabetes mellitus without complication, without long-term current use of insulin E11.9 Active 508482106 ALLERGIES No Information ENCOUNTERS Encounter Location Date Diagnosis [place] [id number] [place] [id number] [place] [address] 92943- 3571 Nov, Acquired hypothyroidism E03.9 and Vertigo R42 [id number] [place] [address] 71518- 9267 Nov, Encounter for well woman exam Z01.419 ; Screening for osteoporosis Z13.820 and Screening for colon cancer Z12.11 [place] [id number] [place] [address] 36525- 0878 Oct, Coronary artery disease involving tanana coronary artery of tanana heart without angina pectoris I25.10 [facility] [address] [address] September, [facility] [id number] [place] [address] 45146- 4823 September, [facility] [id number] [place] [address] 17644- 1849 Aug, Type 2 diabetes mellitus without complication, without long- term current use of insulin E11.9 ; Essential hypertension I10 ; Acquired hypothyroidism E03.9 and Low back pain M54.5 [place] [id number] [place] [address] 97428- 3038 Aug, [place] [id number] [place] [address] 73552- 5634 Aug, [facility] [id number] [place] [address] 47932- 7248 Jul, [facility] [id number] [place] [address] 22862- 1050 Jul, Coronary artery disease involving tanana coronary artery of tanana heart without angina pectoris I25.10 [place] [id number] [place] [address] 97379- 1876 Jun, Low back pain M54.5 and Essential hypertension I10 [place] [id number] [place] [address] 24307- 8421 Jun, Head cold J00 [facility] [id number] [place] [address] 84384- 6123 May, [facility] [id number] [place] [address] 91034- 6591 Apr, Type 2 diabetes mellitus without complication, without long- term current use of insulin E11.9 [facility] [id number] [place] [address] 17512- 5093 Apr, Type 2 diabetes mellitus without complication, without long- term current use of insulin E11.9 [place] [address] [address] 7112 Apr, Essential hypertension I10 [place] [id number] [place] [address] 62872- 7928 Mar, [place] [id number] [place] [address] 39965- 7542 Mar, [place] [id number] [place] [address] 75457- 3061 Mar, Osteoarthritis of spine with radiculopathy, cervical region M47.22 [place] [id number] [place] [address] 02297- 6114 Mar, [place] [id number] [place] [address] 82232- 0180 Feb, [place] [id number] [place] [address] 74308- 2138 Feb, Screening breast examination Z12.31 ; Bilateral carotid artery disease I77.9 ; Low back pain M54.5 ; Osteoarthritis of spine with radiculopathy, cervical region M47.22 ; Renal insufficiency N28.9 ; Vitamin D deficiency E55.9 ; Restless leg syndrome G25.81 ; Acquired hypothyroidism E03.9 ; Coronary artery disease involving tanana coronary artery of tanana heart without angina pectoris I25.10 ; Vertigo R42 ; Essential hypertension I10 ; Type 2 diabetes mellitus with diabetic chronic kidney disease E11.22 and Encounter for immunization Z23 [place] [id number] [place] [address] 54125- 8381 Jan, [place] [id number] [place] [address] 62654- 7645 Jan, Type 2 diabetes mellitus without complication, without long- term current use of insulin E11.9 ; Low back pain M54.5 ; Osteoarthritis of spine with radiculopathy, cervical region M47.22 ; Renal insufficiency N28.9 ; Vitamin D deficiency E55.9 ; Restless leg syndrome G25.81 ; Bilateral carotid artery disease I77.9 ; Acquired hypothyroidism E03.9 ; Coronary artery disease involving tanana coronary artery of tanana heart without angina pectoris I25.10 and Lipoma of back D17.1 [place] [id number] [place] [address] 98257- 8718 Jan, Type 2 diabetes mellitus without complication, without long- term current use of insulin E11.9 [place] [id number] [place] [address] 28769- 3828 Dec, Osteoarthritis of spine with radiculopathy, cervical region M47.22 [place] [id number] [place] [address] 98691- 9714 Nov, [place] [id number] [place] [address] 51725- 2589 Nov, Low back pain M54.5 and Osteoarthritis of spine with radiculopathy, cervical region M47.22 [place] [id number] [place] [address] 19411- 9351 Nov, Osteoarthritis of spine with radiculopathy, cervical [...] hypothyroidism E03.9 ; Coronary artery disease involving tanana coronary artery of tanana heart without angina pectoris I25.10 ; Hypercalcemia E83.52 and Left foot pain M79.672 [place] [id number] [place] [address] 51343- 2729 Oct, [place] [id number] [place] [address] 38999- 3901 Oct, Osteoarthritis of spine with radiculopathy, cervical region M47.22 [place] [id number] [address]- 7910 Oct, Abnormal blood chemistry R79.9 [facility] [id number] [place] [address] 27010- 4844 September, Osteoarthritis of spine with radiculopathy, cervical region M47.22 ; Essential hypertension I10 ; Renal insufficiency N28.9 ; Type 2 diabetes mellitus without complication, without long-term current use of insulin E11.9 ; Vitamin D deficiency E55.9 ; Paresthesia of both hands R20.2 ; Low back pain M54.5 ; Restless leg syndrome G25.81 and Dizziness R42 [facility] [id number] [place] [address] 95260- 4554 September, [facility] [id number] [place] [address] 30671- 0387 September, [facility] [id number] [place] [address] 68696- 9270 September, [facility] [id number] [place] [address] 98776- 4354 September, [facility] [id number] [place] [address] 93803- 5536 Aug, [facility] [id number] [place] [address] 54599- 9105 Aug, [facility] [id number] [place] [address] 94539- 6792 Aug, [facility] [id number] [place] [address] 92524- 8502 Aug, [facility] [id number] [place] [address] 28242- 8423 Aug, Osteoarthritis of spine with radiculopathy, cervical region M47.22 [facility] [address] [address]- 8057 Aug, Essential hypertension I10 ; Renal insufficiency N28.9 ; Type 2 diabetes mellitus without complication, without long-term current use of insulin E11.9 ; Vitamin D deficiency E55.9 ; Paresthesia of both hands R20.2 ; Low back pain M54.5 ; Restless leg syndrome G25.81 ; Osteoarthritis of spine with radiculopathy, cervical region M47.22 and Dizziness R42 [place] [id number] [place] [address] 78245- 2777 23 Jul, 2016 [place] [id number] [place] [address] 22306- 2892 Jul, [place] [id number] [place] [address] 95433- 8503 Jul, Essential hypertension I10 ; Paresthesia of both hands R20.2 ; Upper respiratory tract infection, unspecified type J06.9 and Low back pain M54.5 [place] [id number] [place] [address] 26923- 7179 Jul, [place] [id number] [place] [address] 52239- 6626 Jul, [place] [id number] [place] [address] 53245- 0334 Jul, Renal insufficiency N28.9 ; Vitamin D deficiency E55.9 ; Type 2 diabetes mellitus without complication, without long-term current use of insulin E11.9 ; Restless leg syndrome G25.81 ; Type 2 diabetes mellitus with diabetic chronic kidney disease E11.22 and Chronic kidney disease, stage 1 N18.1 [place] [id number] [place] [address] 60903- 9467 Jul, Renal insufficiency N28.9 [place] [id number] [place] [address] 41419- 4299 Jun, [place] [id number] [place] [address] 07762- 0871 07 Jun, 2016 Renal insufficiency N28.9 ; Vitamin D deficiency E55.9 ; Type 2 diabetes mellitus without complication, without long-term current use of insulin E11.9 ; Restless leg syndrome G25.81 ; Type 2 diabetes mellitus with diabetic chronic kidney disease E11.22 and Chronic kidney disease, stage 1 N18.1 [facility] [address] [address]- 6311 Jun, [facility] [address] [address]- 5244 May, [facility] [address] [address]- 0621 May, [facility] [address] [address]- 7244 May, [facility] [id number] [place] [address] 12130- 5406 May, [facility] [id number] [place] [address] 42364- 9961 May, [facility] [id number] [place] [address] 98186- 8007 Apr, Acquired hypothyroidism E03.9 ; Essential hypertension I10 ; Type 2 diabetes mellitus without complication, without long-term current use of insulin E11.9 and Mixed hyperlipidemia E78.2 [place] [address] [address]- 4935 Apr, Type 2 diabetes mellitus without complication, without long- term current use of insulin E11.9 ; Coronary artery disease involving tanana coronary artery of tanana heart without angina pectoris I25.10 ; Essential hypertension I10 and Acquired hypothyroidism E03.9 [place] [address] [place] [id number] [address]- 0625 Apr, Cellulitis of left lower extremity L03.116 [place] [address] [address]- 6456 Apr, Essential hypertension I10 ; Mixed hyperlipidemia E78.2 ; Type 2 diabetes mellitus without complication, without long-term current use of insulin E11.9 ; Acquired hypothyroidism E03.9 ; Cellulitis of left lower extremity L03.116 and Coronary artery disease involving tanana coronary artery of tanana heart without angina pectoris I25.10 [facility] [address] [address]- 1806 14 Apr, 2016 [facility] [address] [address] -6921 Dec, Dermatitis L30.9 [facility] [id number] [place] [address] 78044- 9169 Aug, [facility] [address] [facility] [id number] [place] [address] 35603- 4686 Aug, [facility] [id number] [place] [address] 32882- 7636 Jan, [facility] [id number] [place] [address] 11430- 1690 Jan, [facility] [id number] [place] [address] 41685- 2193 Jun, [facility] [address] [address]- 2558 May, [facility] [id number] [address]- 2161 May, [facility] [address] [address]- 8272 May, [facility] [address] [address]- 8353 Apr, [facility] [address] [address]- 5586 Feb, [facility] [id number] [place] [address] 04180- 5989 Feb, [facility] [address] [address]- 2546 Nov, [facility] [id number] [place] [address] 64896- 1103 Nov, [facility] [address] [facility] [id number] [address]- 4284 Nov, [facility] [address] [facility] [id number] [address]- 1554 Nov, [facility] [address] [facility] [id number] [address]- 7353 Nov, [facility] [address] [facility] [id number] [address]- 4134 Nov, [facility] [address] [facility] [id number] [address]- 7176 Nov, IMMUNIZATIONS No Known Immunizations SOCIAL HISTORY Never Assessed REASON FOR VISIT MTM (Medication Therapy Management) PLAN OF CARE VITAL SIGNS MEDICATIONS Medication Instructions Dosage Frequency Start Date End Date Duration Status Rosuvastatin Calcium 20 mg Orally Once a [...]
--- OUTSIDE RECORDS SUMMARY | 2018-04-05 20:00 | XMS REPORT ---
Author Author SAKSHI TIDWELL Organization [facility] Address [address] [place] [address] Care Team Providers Care Environmental Construction Engineer Name Role Phone SAKSHI TIDWELL Unavailable PROBLEMS Type Condition ICD9-CM Code TSI58-SC Code Onset Dates Condition Status SNOMED Code Problem Mixed hyperlipidemia E78.2 Active 109921845 Problem Restless leg syndrome G25.81 Active 06598725 Problem Acquired hypothyroidism E03.9 Active 647913755 Problem Hypercalcemia E83.52 Active 78486921 Problem Bilateral carotid artery disease I77.9 Active 236506298 Problem Chronic kidney disease, stage 1 N18.1 Active 305924591 Problem Type 2 diabetes mellitus with diabetic chronic kidney disease E11.22 Active 27690029 Problem Osteoarthritis of spine with radiculopathy, cervical region M47.22 Active 426887090 Problem Low back pain M54.5 Active 753206872 Problem Vitamin D deficiency E55.9 Active 16508372 Problem Coronary artery disease involving [place] coronary artery of [place] heart without angina pectoris I25.10 Active 9032428612037 Problem Essential hypertension I10 Active 64179949 Problem Renal insufficiency N28.9 Active 693843296 Problem Type 2 diabetes mellitus without complication, without long-term current use of insulin E11.9 Active 938082881 ALLERGIES No Information ENCOUNTERS Encounter Location Date Diagnosis [place] [id number], [place] [address] Nov, Coronary artery disease involving [place] coronary artery of [place] heart without angina pectoris I25.10 [place] [id number], [place] [address] Nov, Acquired hypothyroidism E03.9 and Vertigo R42 [facility] [id number], [place] [address] Nov, Encounter for well woman exam Z01.419 ; Screening for osteoporosis Z13.820 and Screening for colon cancer Z12.11 [place] [id number] [place] [address] 91545- 3598 Oct, Coronary artery disease involving [place] coronary artery of [place] heart without angina pectoris I25.10 [place] [id number] [place] [address] 44915- 4793 September, [place] [address] [address] September, [place] [id number] [place] [address] 60201- 5445 Aug, Type 2 diabetes mellitus without complication, without long- term current use of insulin E11.9 ; Essential hypertension I10 ; Acquired hypothyroidism E03.9 and Low back pain M54.5 [place] [address] [address] Aug, [place] [id number] [place] [address] 52031- 9569 Aug, [place] [id number] [place] [address] 75219- 8987 Jul, [place] [id number] [place] [address] 97621- 2897 Jul, Coronary artery disease involving [place] coronary artery of [place] heart without angina pectoris I25.10 [place] [id number] [place] [address] 31938- 4876 Jun, Low back pain M54.5 and Essential hypertension I10 [place] [id number] [place] [address] 69373- 8924 Jun, Head cold J00 [place] [id number] [place] [address] 95044- 3389 May, [place] [id number] [place] [address] 15299- 5498 Apr, Type 2 diabetes mellitus without complication, without long- term current use of insulin E11.9 [place] [address], [place] [address] Apr, Type 2 diabetes mellitus without complication, without long- term current use of insulin E11.9 [place] [id number] [place] [address] 83684- 2269 Apr, Essential hypertension I10 [place] [id number] [place] [address] 14675- 7042 Mar, [place] [id number] [place] [address] 01757- 3306 Mar, [place] [id number] [place] [address] 61737- 4644 Mar, Osteoarthritis of spine with radiculopathy, cervical region M47.22 [place] [id number] [place] [address] 45412- 3705 Mar, [place] [id number] [place] [address] 89298- 9169 Feb, [place] [id number] [place] [address] 26441- 9138 Feb, Screening breast examination Z12.31 ; Bilateral carotid artery disease I77.9 ; Low back pain M54.5 ; Osteoarthritis of spine with radiculopathy, cervical region M47.22 ; Renal insufficiency N28.9 ; Vitamin D deficiency E55.9 ; Restless leg syndrome G25.81 ; Acquired hypothyroidism E03.9 ; Coronary artery disease involving [place] coronary artery of [place] heart without angina pectoris I25.10 ; Vertigo R42 ; Essential hypertension I10 ; Type 2 diabetes mellitus with diabetic chronic kidney disease E11.22 and Encounter for immunization Z23 [place] [id number] [place] [address] 86761- 8830 Jan, [place] [id number] [place] [address] 75330- 0187 Jan, Type 2 diabetes mellitus without complication, without long- term current use of insulin E11.9 ; Low back pain M54.5 ; Osteoarthritis of spine with radiculopathy, cervical region M47.22 ; Renal insufficiency N28.9 ; Vitamin D deficiency E55.9 ; Restless leg syndrome G25.81 ; Bilateral carotid artery disease I77.9 ; Acquired hypothyroidism E03.9 ; Coronary artery disease involving [place] coronary artery of [place] heart without angina pectoris I25.10 and Lipoma of back D17.[address] [address]- [address] Jan, Type 2 diabetes mellitus without complication, without long- term current use of insulin E11.[address] [address]- 9969 Dec, Osteoarthritis of spine with radiculopathy, cervical region M47.22 [place] [id number] [place] [address] 38589- 9446 Nov, [place] [address] [address] Nov, Low back pain M54.5 and Osteoarthritis of spine with radiculopathy, cervical region M47.[address] 80278- 3075 Nov, Osteoarthritis of spine with radiculopathy, cervical [...] hypothyroidism E03.9 ; Coronary artery disease involving [place] coronary artery of [place] heart without angina pectoris I25.10 ; Hypercalcemia E83.52 and Left foot pain M79.672 [place] [id number] [place] [address] 74949- 8240 Oct, [id number] [place] [address] 52180- 2894 Oct, Osteoarthritis of spine with radiculopathy, cervical region M47.22 [facility] [id number] [place] [address] 64670- 3454 05 Oct, 2016 Abnormal blood chemistry R79.9 [facility] [id number] [place] [address] 12182- 3804 September, Osteoarthritis of spine with radiculopathy, cervical region M47.22 ; Essential hypertension I10 ; Renal insufficiency N28.9 ; Type 2 diabetes mellitus without complication, without long-term current use of insulin E11.9 ; Vitamin D deficiency E55.9 ; Paresthesia of both hands R20.2 ; Low back pain M54.5 ; Restless leg syndrome G25.81 and Dizziness R42 [facility] [id number] [place] [address] 97403- 2258 September, [facility] [id number] [place] [address] 17071- 2436 September, [facility] [id number] [place] [address] 07892- 2455 September, [facility] [id number] [place] [address] 96393- 3052 September, [facility] [id number] [place] [address] 41453- 1089 Aug, [facility] [id number] [place] [address] 03524- 5937 Aug, [facility] [id number] [place] [address] 60632- 3860 Aug, [facility] [id number] [place] [address] 71831- 0398 Aug, [facility] [id number] [place] [address] 85856- 6799 Aug, Osteoarthritis of spine with radiculopathy, cervical region M47.22 [place] [address], [place] [address] 05 Aug, 2016 Essential hypertension I10 ; Renal insufficiency N28.9 ; Type 2 diabetes mellitus without complication, without long-term current use of insulin E11.9 ; Vitamin D deficiency E55.9 ; Paresthesia of both hands R20.2 ; Low back pain M54.5 ; Restless leg syndrome G25.81 ; Osteoarthritis of spine with radiculopathy, cervical region M47.22 and Dizziness R42 [place] [id number] [place] [address] 66369- 3257 Jul, [place] [id number] [place] [address] 79150- 0032 Jul, [place] [id number] [place] [address] 43240- 3098 Jul, Essential hypertension I10 ; Paresthesia of both hands R20.2 ; Upper respiratory tract infection, unspecified type J06.9 and Low back pain M54.5 [place] [id number] [place] [address] 56897- 3013 Jul, [place] [id number] [place] [address] 41343- 1675 Jul, [place] [id number] [place] [address] 93702- 3142 Jul, Renal insufficiency N28.9 ; Vitamin D deficiency E55.9 ; Type 2 diabetes mellitus without complication, without long-term current use of insulin E11.9 ; Restless leg syndrome G25.81 ; Type 2 diabetes mellitus with diabetic chronic kidney disease E11.22 and Chronic kidney disease, stage 1 N18.1 [place] [id number] [place] [address] 66110- 2386 07 Jul, 2016 Renal insufficiency N28.9 [place] [id number] [place] [address] 00107- 2176 Jun, [place] [id number] [place] [address] 52674- 0890 07 Jun, 2016 Renal insufficiency N28.9 ; Vitamin D deficiency E55.9 ; Type 2 diabetes mellitus without complication, without long-term current use of insulin E11.9 ; Restless leg syndrome G25.81 ; Type 2 diabetes mellitus with diabetic chronic kidney disease E11.22 and Chronic kidney disease, stage 1 N18.1 [place] [id number] [place] [address] 00138- 5030 Jun, [place] [id number] [place] [address] 05440- 3001 May, [place] [id number] [place] [address] 57675- 6679 May, [place] [id number] [place] [address] 83129- 8628 May, [place] [id number] [place] [address] 72981- 0536 May, [place] [id number] [place] [address] 08532- 6687 May, [place] [id number] [place] [address] 19772- 6774 Apr, Acquired hypothyroidism E03.9 ; Essential hypertension I10 ; Type 2 diabetes mellitus without complication, without long-term current use of insulin E11.9 and Mixed hyperlipidemia E78.2 [place] [id number] [place] [address] 75424- 6126 Apr, Type 2 diabetes mellitus without complication, without long- term current use of insulin E11.9 ; Coronary artery disease involving [place] coronary artery of [place] heart without angina pectoris I25.10 ; Essential hypertension I10 and Acquired hypothyroidism E03.9 [place] [id number] [place] [address] 51108- 7453 Apr, Cellulitis of left lower extremity L03.116 [place] [id number] [place] [address] 36561- 4491 Apr, Essential hypertension I10 ; Mixed hyperlipidemia E78.2 ; Type 2 diabetes mellitus without complication, without long-term current use of insulin E11.9 ; Acquired hypothyroidism E03.9 ; Cellulitis of left lower extremity L03.116 and Coronary artery disease involving [place] coronary artery of [place] heart without angina pectoris I25.10 [facility] [address], [place] [address]- [address] 14 Apr, 2016 [facility] [id number] [place] [address] 32804 -9732 Dec, Dermatitis L30.9 [facility] [id number] [place] [address] 00142- 3323 Aug, [facility] [id number] [place] [address] 37117- 3355 Aug, [facility] [id number] [place] [address] 92324- 3733 Jan, [facility] [id number] [place] [address] 96346- 8907 Jan, [facility] [id number] [place] [address] 40327- 5243 Jun, [facility] [address], [place] [address]- 5453 May, [facility] [address], [place] [address]- 6381 May, [facility] [address] [address]- 9922 May, [facility] [address], [place] [address]- 2483 Apr, [facility] [address] [place] [address] 707235- 1329 Feb, [facility] [address], [place] [address]- 3243 Feb, [facility] [id number] [address]- 1616 19 Nov, 2011 [facility] [address] [facility] [id number] [address] 16[address] 18 Nov, 2011 [facility] [id number] [address]- 5947 16 Nov, 2011 [facility] [id number] [address]- [address] Nov, [facility] [id number] [address]- 0215 Nov, [facility] [id number] [address]- 1779 Nov, [facility] [id number] [address]- 8133 Nov, IMMUNIZATIONS No Known Immunizations SOCIAL HISTORY Never Assessed REASON FOR VISIT Controlled Med Refill PLAN OF CARE VITAL SIGNS MEDICATIONS Medication Instructions Dosage Frequency Start Date End Date Duration Status Hydrocodone-Acetaminophen 5-325 MG Orally 3 times a day 1/2-1 tablet as needed 8h Aug, 28 days Active RESULTS No Results PROCEDURES [...]
--- OUTSIDE RECORDS SUMMARY | 2018-04-05 20:00 | XMS REPORT ---
Author Author SAKSHI TIDWELL [facility] Address [address] [place] [address] Care Team Providers Care Oracle Data Warehouse Developer Name Role Phone SAKSHI TIDWELL Unavailable PROBLEMS Type Condition ICD9-CM Code [id number] Code Onset Dates Condition Status SNOMED Code Problem Acquired hypothyroidism E03.9 Active 040559279 Problem Type 2 diabetes mellitus with diabetic chronic kidney disease E11.22 Active 33266924 Problem Restless leg syndrome G25.81 Active 68189439 Problem Hypercalcemia E83.52 Active 43288938 Problem Bilateral carotid artery disease I77.9 Active 282735774 Problem Low back pain M54.5 Active 317731853 Problem Chronic kidney disease, stage 1 N18.1 Active 446101575 Problem Paresthesia of both hands R20.2 Active 434313381 Problem Osteoarthritis of spine with radiculopathy, cervical region M47.22 Active 929471090 Problem Renal insufficiency N28.9 Active 395615773 Problem Coronary artery disease involving [place] coronary artery of [place] heart without angina pectoris I25.10 Active 7622294688466 Problem Essential hypertension I10 Active 00688336 Problem Vitamin D deficiency E55.9 Active 40615426 Problem Type 2 diabetes mellitus without complication, without long-term current use of insulin E11.9 Active 518103606 Problem Abnormal blood chemistry R79.9 Active 178282426 Problem Mixed hyperlipidemia E78.2 Active 142505906 ALLERGIES Substance Reaction Event Type Date Status Bydureon leg irritation with knot at inj site Drug Allergy Jun, Active Bactrim DS Unknown Drug Allergy Jun, Active SOCIAL HISTORY Never Assessed PLAN OF CARE Activity Details Follow Up 4 Weeks Reason:lab and ov VITAL SIGNS Height 64.5 in 2016-06-19 Weight 197.5 lbs 2016-06-19 Temperature 98.6 degrees Fahrenheit 2016-06-19 Heart Rate 72 bpm 2016-06-19 Respiratory Rate 20 2016-06-19 BMI 33.37 kg/m2 2016-06-19 Blood pressure systolic 116 mmHg 2016-06-19 Blood pressure diastolic 72 mmHg 2016-06-19 MEDICATIONS Medication Instructions Dosage Frequency Start Date End Date Duration Status Aspirin 325 MG Orally Once a day 1 tablet 24h Active Lisinopril 10 MG Orally Once a day 1 tablet 24h 90 Active Isosorbide Mononitrate 60 mg Orally Once a day 1 tablet 24h Active Fish Oil 1000 MG Orally twice a day 1 capsule 12h Active Rosuvastatin Calcium 20 MG Orally Once a day 1 tablet 24h Active Hydrochlorothiazide 25 MG Orally every other day 1/2 tablet Active Trulicity 0.75 MG/0.5ML Subcutaneous once weekly 0.5 ml Jun, Active Fenofibric Acid 135 MG Orally Once a day 1 capsule 24h Active Potassium Chloride ER 10 MEQ Orally Once a day 1 capsule with food 24h 30 days Active Metoprolol Tartrate 25 MG Orally Once a day 1/2 tablet 24h 30 days Active Levothyroxine Sodium 75 MCG Orally Once a day 1 tablet on an empty stomach in the morning 24h 90 Active Clopidogrel Bisulfate 75 MG Orally Once a day 1 tablet 24h Active Cholecalciferol 3000 UNIT [place] [address] unit rx 1 tablet May, Active Vitamin B-12 50 MCG Active Cholecalciferol 89188 UNIT Orally once weekly for 12 weeks 1 tablet May, Active RESULTS No Results PROCEDURES No Known procedures IMMUNIZATIONS No Known Immunizations MEDICAL (GENERAL) HISTORY Type Description Date Medical History type II diabetes Medical History Hypothyroidism Medical History hypertension Medical History heart disease Medical History Hyperlipidemia Medical History CAD Medical History Sent circumflex Artery Alie Surgical History cholecystectomy Surgical History hernia repair Surgical History carotid endarterectomy Surgical History 2 stents placed-cardiac Surgical History cataract surgery Hospitalization History black out spells Hospitalization History Surgery(s) only
--- OUTSIDE RECORDS SUMMARY | 2018-04-05 20:01 | XMS REPORT ---
Author Author SAKSHI TIDWELL [facility] Address [address] [place] [address] Care Team Providers Care Blade Filer Name Role Phone SAKSHI TIDWELL Unavailable PROBLEMS Type Condition ICD9-CM Code VLM95-JF Code Onset Dates Condition Status SNOMED Code Problem Restless leg syndrome G25.81 Active 13960304 Problem Chronic kidney disease, stage 1 N18.1 Active 823358407 Problem Type 2 diabetes mellitus with diabetic chronic kidney disease E11.22 Active 04263458 Problem Vertigo R42 Active 293234798 Problem Bilateral carotid artery disease I77.9 Active 951071076 Problem Osteoarthritis of spine with radiculopathy, cervical region M47.22 Active 140564146 Problem Low back pain M54.5 Active 895880196 Problem Hypercalcemia E83.52 Active 63462392 Problem Paresthesia of both hands R20.2 Active 284160037 Problem Renal insufficiency N28.9 Active 341539573 Problem Vitamin D deficiency E55.9 Active 16836478 Problem Essential hypertension I10 Active 30763257 Problem Type 2 diabetes mellitus without complication, without long-term current use of insulin E11.9 Active 825793884 Problem Abnormal blood chemistry R79.9 Active 497889177 Problem Mixed hyperlipidemia E78.2 Active 077716015 Problem Coronary artery disease involving [place] coronary artery of [place] heart without angina pectoris I25.10 Active 1379390054117 Problem Acquired hypothyroidism E03.9 Active 767277120 ALLERGIES Substance Reaction Event Type Date Status Bydureon leg irritation with knot at inj site Drug Allergy September, Active Bactrim DS Unknown Drug Allergy September, Active SOCIAL HISTORY Never Assessed PLAN OF CARE Activity Details Follow Up 6 Weeks Reason:DM VITAL SIGNS Height 64.5 in 2016-10-03 Weight 192.1 lbs 2016-10-03 Temperature 99.2 degrees Fahrenheit 2016-10-03 Heart Rate 72 bpm 2016-10-03 Respiratory Rate 20 2016-10-03 BMI 32.46 kg/m2 2016-10-03 Blood pressure systolic 94 mmHg 2016-10-03 Blood pressure diastolic 56 mmHg 2016-10-03 MEDICATIONS Medication Instructions Dosage Frequency Start Date End Date Duration Status Vitamin D3 63538 UNIT TAKE ONE CAPSULE BY MOUTH ONCE A WEEK 84 Active Meclizine HCl 25 MG Orally 3 times a day 1 tablet as needed 8h Active Zofran 8 MG Orally 3 times a day 1 tablet 8h Jul, Active Fenofibrate 145 MG Orally Once a day 1 tablet 24h Aug, 90 days Active Rosuvastatin Calcium 20 MG Orally Once a day 1 tablet 24h Active Clopidogrel Bisulfate 75 MG Orally Once a day 1 tablet 24h Active Trulicity 0.75 MG/0.5ML Subcutaneous once weekly 0.5 ml 28 Active Aspirin 325 MG Orally Once a day 1 tablet 24h Active Vitamin B-12 50 MCG Active TRUEplus Lancets 30G - as directed 24h Jul, Active Crestor 20 TAKE 1 TABLET BY MOUTH EVERY NIGHT AT BEDTIME 30 Active Hydrochlorothiazide 25 MG Orally every other day 1/2 tablet Active Cholecalciferol - [place]ally [place] [address] unit rx 1 tablet Active Fish Oil 1000 MG Orally twice a day 1 capsule 12h Active Isosorbide Mononitrate 60 mg Orally Once a day 1 tablet 24h Active Cyclobenzaprine HCl 10 mg Orally Once a day 1/2 to 1 tablet as needed at bedtime 24h September, Active Gabapentin 100 mg Orally three times a day prn 1 capsule 30 days Active ProAir HFA 108 (90 Base) MCG/ACT Inhalation 3 times a day 2 puffs as needed 8h Jul, 10 days Active Requip 0.5 MG Orally Once a day 1 tablet 1 to 3 hours before bedtime 24h 30 day(s) Active Levothyroxine Sodium 75 MCG Orally Once a day 1 tablet on an empty stomach in the morning 24h 90 Active Potassium Chloride Corie ER 10 MEQ TAKE ONE TABLET BY MOUTH ONCE DAILY WITH FOOD 30 Active Meclizine HCl 25 MG Orally 3 times a day 1 tablet as needed 8h 20 Active Metoprolol Tartrate 25 MG Orally Once a day 1/2 tablet 24h 30 Active Tramadol HCl 50 mg Orally Once a day 1 tablet as needed in the morning 24h September, Active Lisinopril 10 MG Orally Once a day 1 tablet 24h 90 Active True Metrix Blood Glucose Test - In Vitro Once a day & prn as directed Jul, Active RESULTS Name Result Date Reference Range [facility] 2016-10-03 Glucose, Serum 99 65-99 BUN 19 8-27 Creatinine, Serum 0.95 0.57-1.00 eGFR If NonAfricn Am 64 >59 eGFR If Africn Am 74 >59 BUN/Creatinine Ratio 20 12-28 Sodium, Serum 144 134-144 Potassium, Serum 4.2 3.5-5.2 Chloride, Serum 99 96-106 Carbon Dioxide, Total 29 18-29 Calcium, Serum 10.4 8.7-10.3 Protein, Total, Serum 6.7 6.0-8.5 Albumin, Serum 4.4 3.6-4.8 Globulin, Total 2.3 1.5-4.5 A/G Ratio 1.9 1.2-2.2 Bilirubin, Total 0.4 0.0-1.2 Alkaline Phosphatase, S 36 39-117 AST (SGOT) 17 0-40 ALT (SGPT) 13 0-32 Carotid Ultrasound 2016-10-30 PROCEDURES Procedure Date Ordered Result Body Site LAB NOT BILLED BY [facility] October 03, 2016 VENIPUNCT, ROUTINE* October 03, 2016 IMMUNIZATIONS No Known Immunizations MEDICAL (GENERAL) HISTORY Type Description Date Medical History type II diabetes Medical History Hypothyroidism Medical History hypertension Medical History heart disease Medical History Hyperlipidemia Medical History CAD Medical History Sent circumflex Artery Surgical History cholecystectomy Surgical History hernia repair Surgical History carotid endarterectomy Surgical History 2 stents placed-cardiac Surgical History cataract surgery Hospitalization History black out spells Hospitalization History Surgery(s) only
--- OUTSIDE RECORDS SUMMARY | 2018-04-05 20:01 | XMS REPORT ---
Author Author SAKSHI TIDWELL [facility] Address [address] [place] [address] Care Team Providers Care Produce Department Manager Name Role Phone SAKSHI TIDWELL Unavailable PROBLEMS Type Condition ICD9-CM Code WFE94-YH Code Onset Dates Condition Status SNOMED Code Problem Acquired hypothyroidism E03.9 Active 802747740 Problem Type 2 diabetes mellitus with diabetic chronic kidney disease E11.22 Active 80990562 Problem Restless leg syndrome G25.81 Active 19207826 Problem Hypercalcemia E83.52 Active 79437374 Problem Bilateral carotid artery disease I77.9 Active 268988360 Problem Low back pain M54.5 Active 052890308 Problem Chronic kidney disease, stage 1 N18.1 Active 953615810 Problem Paresthesia of both hands R20.2 Active 916780433 Problem Osteoarthritis of spine with radiculopathy, cervical region M47.22 Active 653274959 Problem Renal insufficiency N28.9 Active 954009119 Problem Coronary artery disease involving [place] coronary artery of [place] heart without angina pectoris I25.10 Active 7050973663804 Problem Essential hypertension I10 Active 75654189 Problem Vitamin D deficiency E55.9 Active 89328039 Problem Type 2 diabetes mellitus without complication, without long-term current use of insulin E11.9 Active 541927120 Problem Abnormal blood chemistry R79.9 Active 970593791 Problem Mixed hyperlipidemia E78.2 Active 721377158 ALLERGIES Unknown Allergies SOCIAL HISTORY No smoking Hx information available PLAN OF CARE VITAL SIGNS MEDICATIONS Medication Instructions Dosage Frequency Start Date End Date Duration Status Trulicity 0.75 MG/0.5ML Subcutaneous once weekly 0.5 ml Jun, 3 Aug, 2016 30 day(s) Active RESULTS No Results PROCEDURES No Known procedures IMMUNIZATIONS No Known Immunizations
--- OUTSIDE RECORDS SUMMARY | 2018-04-05 20:01 | XMS REPORT ---
Author Author SAKSHI TIDWELL Organization [facility] Address [address] [place] [address] Care Team Providers Care Grape Cutter Name Role Phone SAKSHI TIDWELL Unavailable PROBLEMS Type Condition ICD9-CM Code WBG64-AQ Code Onset Dates Condition Status SNOMED Code Problem Mixed hyperlipidemia E78.2 Active 262760526 Problem Restless leg syndrome G25.81 Active 17624802 Problem Acquired hypothyroidism E03.9 Active 274093577 Problem Hypercalcemia E83.52 Active 87984489 Problem Bilateral carotid artery disease I77.9 Active 010111216 Problem Chronic kidney disease, stage 1 N18.1 Active 381870321 Problem Type 2 diabetes mellitus with diabetic chronic kidney disease E11.22 Active 03440048 Problem Osteoarthritis of spine with radiculopathy, cervical region M47.22 Active 174100079 Problem Low back pain M54.5 Active 475977118 Problem Vitamin D deficiency E55.9 Active 12931892 Problem Coronary artery disease involving [place] coronary artery of [place] heart without angina pectoris I25.10 Active 0924348382732 Problem Essential hypertension I10 Active 18691479 Problem Renal insufficiency N28.9 Active 177292426 Problem Type 2 diabetes mellitus without complication, without long-term current use of insulin E11.9 Active 817087588 ALLERGIES Substance Reaction Event Type Date Status Bydureon leg irritation with knot at inj site Drug Allergy Feb, Active Bactrim DS Unknown Drug Allergy Feb, Active ENCOUNTERS Encounter Location Date Diagnosis [facility] [address] [facility] [id number], [place] [address] September, [facility] [address] [facility] [id number], [place] [address] Aug, Type 2 diabetes mellitus without complication, without long- term current use of insulin E11.9 ; Essential hypertension I10 ; Acquired hypothyroidism E03.9 and Low back pain M54.5 [facility] [address], [place] [address] Aug, [facility] [id number] [place] [address] 70515- 5576 Aug, [facility] [id number] [place] [address] 70666- 3341 Jul, [facility] [id number] [place] [address] 43541- 7143 Jul, Coronary artery disease involving [place] coronary artery of [place] heart without angina pectoris I25.10 [facility] [id number] [place] [address] 50332- 2986 Jun, Low back pain M54.5 and Essential hypertension I10 [facility] [id number] [place] [address] 72256- 5130 Jun, Head cold J00 [facility] [id number] [place] [address] 45073- 4897 May, [facility] [id number] [place] [address] 06172- 3999 Apr, Type 2 diabetes mellitus without complication, without long- term current use of insulin E11.9 [facility] [address], [place] [address] Apr, Type 2 diabetes mellitus without complication, without long- term current use of insulin E11.9 [facility] [address] [place] [address] 20625- 3175 Apr, Essential hypertension I10 [facility] [id number] [place] [address] 70581- 3287 Mar, [facility] [id number] [place] [address] 78273- 1988 Mar, [facility] [address] [place] [address] 36395- 8573 Mar, Osteoarthritis of spine with radiculopathy, cervical region M47.22 [place] [address], [place] [address] Mar, [place] [address] [place] [address] 77776- 1704 Feb, [place] [id number] [place] [address] 16144- 8838 Feb, Screening breast examination Z12.31 ; Bilateral carotid artery disease I77.9 ; Low back pain M54.5 ; Osteoarthritis of spine with radiculopathy, cervical region M47.22 ; Renal insufficiency N28.9 ; Vitamin D deficiency E55.9 ; Restless leg syndrome G25.81 ; Acquired hypothyroidism E03.9 ; Coronary artery disease involving [place] coronary artery of [place] heart without angina pectoris I25.10 ; Vertigo R42 ; Essential hypertension I10 ; Type 2 diabetes mellitus with diabetic chronic kidney disease E11.22 and Encounter for immunization Z23 [place] [facility] [id number] [place] [address] 41098- 6857 Jan, [place] [address] [place] [address] 75570- 5588 Jan, Type 2 diabetes mellitus without complication, without long- term current use of insulin E11.9 ; Low back pain M54.5 ; Osteoarthritis of spine with radiculopathy, cervical region M47.22 ; Renal insufficiency N28.9 ; Vitamin D deficiency E55.9 ; Restless leg syndrome G25.81 ; Bilateral carotid artery disease I77.9 ; Acquired hypothyroidism E03.9 ; Coronary artery disease involving [place] coronary artery of [place] heart without angina pectoris I25.10 and Lipoma of back D17.1 [place] [address] [place] [address] 94139- 3676 Jan, Type 2 diabetes mellitus without complication, without long- term current use of insulin E11.9 [place] [address] [place] [address] 76519- 5602 Dec, Osteoarthritis of spine with radiculopathy, cervical region M47.22 [place] [address] [place] [address] 14434- 0658 Nov, [place] [id number] [place] [address] 98807- 8753 Nov, Low back pain M54.5 and Osteoarthritis of spine with radiculopathy, cervical region M47.22 [place] [id number] [place] [address] 07722- 9281 Nov, Osteoarthritis of spine with radiculopathy, cervical [...] hypothyroidism E03.9 ; Coronary artery disease involving [place] coronary artery of [place] heart without angina pectoris I25.10 ; Hypercalcemia E83.52 and Left foot pain M79.672 [place] [facility] [id number] [place] [address] 38703- 8395 Oct, [place] [facility] [id number] [place] [address] 68757- 2758 Oct, Osteoarthritis of spine with radiculopathy, cervical region M47.22 [place] [id number] [place] [address] 45934- 2857 Oct, Abnormal blood chemistry R79.9 [place] [id number] [place] [address] 27314- 8724 September, Osteoarthritis of spine with radiculopathy, cervical region M47.22 ; Essential hypertension I10 ; Renal insufficiency N28.9 ; Type 2 diabetes mellitus without complication, without long-term current use of insulin E11.9 ; Vitamin D deficiency E55.9 ; Paresthesia of both hands R20.2 ; Low back pain M54.5 ; Restless leg syndrome G25.81 and Dizziness R42 [facility] [address], [place] [address] September, [facility] [address] [place] [address] 55057- 9484 September, [facility] [id number], [place] [address] September, [facility] [id number] [place] [address] 64477- 5259 September, [facility] [id number] [place] [address] 21314- 7540 Aug, [facility] [id number] [place] [address] 98811- 7634 Aug, [facility] [id number] [place] [address] 58560- 9309 Aug, [facility] [id number] [place] [address] 17500- 9575 Aug, [facility] [id number] [place] [address] 07059- 8707 Aug, Osteoarthritis of spine with radiculopathy, cervical region M47.22 [facility] [address], [place] [address] 0180 Aug, Essential hypertension I10 ; Renal insufficiency N28.9 ; Type 2 diabetes mellitus without complication, without long-term current use of insulin E11.9 ; Vitamin D deficiency E55.9 ; Paresthesia of both hands R20.2 ; Low back pain M54.5 ; Restless leg syndrome G25.81 ; Osteoarthritis of spine with radiculopathy, cervical region M47.22 and Dizziness R42 [facility] [address] [place] [address] 82570- 8520 Jul, [facility] [address], [place] [address]- 5142 Jul, [facility] [id number], [place] [address] 2714 Jul, Essential hypertension I10 ; Paresthesia of both hands R20.2 ; Upper respiratory tract infection, unspecified type J06.9 and Low back pain M54.5 [facility] [address], [place] [address]- 1189 15 Jul, 2016 [facility] [address] [place] [address] 78531- 4406 Jul, [facility] [id number] [place] [address] 83334- 1396 Jul, Renal insufficiency N28.9 ; Vitamin D deficiency E55.9 ; Type 2 diabetes mellitus without complication, without long-term current use of insulin E11.9 ; Restless leg syndrome G25.81 ; Type 2 diabetes mellitus with diabetic chronic kidney disease E11.22 and Chronic kidney disease, stage 1 N18.1 [facility] [address], [place] [address]- 4557 Jul, Renal insufficiency N28.9 [facility] [address] [place] [address] 23226- 6961 Jun, [facility] [address] [place] [address] 47431- 2327 Jun, Renal insufficiency N28.9 ; Vitamin D deficiency E55.9 ; Type 2 diabetes mellitus without complication, without long-term current use of insulin E11.9 ; Restless leg syndrome G25.81 ; Type 2 diabetes mellitus with diabetic chronic kidney disease E11.22 and Chronic kidney disease, stage 1 N18.1 [place] [address], [place] [address]- 5479 Jun, [facility] [id number], [place] [address]- 4221 May, [facility] [address], [place] [address]- 7574 May, [facility] [id number] [place] [address] 78613- 1876 May, [facility] [address], [place] [address]- 9202 May, [facility] [address] [place] [address] 92817- 1558 May, [facility] [address] [place] [address] 66850- 6550 Apr, Acquired hypothyroidism E03.9 ; Essential hypertension I10 ; Type 2 diabetes mellitus without complication, without long-term current use of insulin E11.9 and Mixed hyperlipidemia E78.2 [place] [address] [place] [address] 14717- 6154 Apr, Type 2 diabetes mellitus without complication, without long- term current use of insulin E11.9 ; Coronary artery disease involving [place] coronary artery of [place] heart without angina pectoris I25.10 ; Essential hypertension I10 and Acquired hypothyroidism E03.9 [place] [address] [place] [address] 37892- 8517 Apr, Cellulitis of left lower extremity L03.116 [place] [address] [place] [address] 96348- 9878 Apr, Essential hypertension I10 ; Mixed hyperlipidemia E78.2 ; Type 2 diabetes mellitus without complication, without long-term current use of insulin E11.9 ; Acquired hypothyroidism E03.9 ; Cellulitis of left lower extremity L03.116 and Coronary artery disease involving [place] coronary artery of [place] heart without angina pectoris I25.10 [facility] [id number], [place] [address]- 4606 Apr, [facility] [address], [place] [address] Dec, Dermatitis L30.9 [facility] [address] [place] [address] 05973- 2445 Aug, [place] [address] [place] [address] 84742- 1209 Aug, [facility] [place] [facility] [address] [id number] [place] [address]- 7523 Jan, [facility] [place] [facility] [address] [id number] [place] [address]- 4026 Jan, [facility] [place] [facility] [address] [id number] [place] [address]- 9975 Jun, [facility] [place] [facility] [address] [id number] [place] [address]- 9383 May, [facility] [place] [facility] [address] [id number] [place] [address]- 1569 May, [facility] [place] [facility] [address] [id number] [place] [address]- 3394 May, [facility] [place] [facility] [address] [id number] [place] [address]- 2674 Apr, [facility] [place] [facility] [address] [id number] [place] [address]- 3397 Feb, [facility] [place] [facility] [address] [id number] [place] [address]- 2168 Feb, [facility] [place] [facility] [address] [id number] [place] [address]- 7882 Nov, [facility] [place] [facility] [address] [id number] [place] [address]- 4592 Nov, [facility] [place] [facility] [address] [id number], [place] [address]- 0199 Nov, [facility] [place] [facility] [address] [id number] [place] [address]- 1224 Nov, [facility] [place] [facility] [address] [id number] [place] [address]- 2368 Nov, [facility] [place] [facility] [address] [id number], [place] [address]- 6282 Nov, [facility] [place] [facility] [address] [id number], [place] [address]- 4726 Nov, IMMUNIZATIONS Vaccine Route Administration Date Status FLUARIX QUAD (3 AND UP) 2016 IM Intramuscular Mar 06, 2017 Administered SOCIAL HISTORY Never Assessed REASON FOR VISIT breast exam --tcuppettRN, Requesting mammogram order PLAN OF CARE Activity Details Follow Up 3 Months Reason:DM VITAL SIGNS Height 64.5 in 2017-03-06 Weight 175.3 lbs 2017-03-06 Temperature 98.7 degrees Fahrenheit 2017-03-06 Heart Rate 70 bpm 2017-03-06 Respiratory Rate 18 2017-03-06 BMI 29.62 kg/m2 2017-03-06 Blood pressure systolic 148 mmHg 2017-03-06 Blood pressure diastolic 80 mmHg 2017-03-06 MEDICATIONS Medication Instructions Dosage Frequency Start Date End Date Duration Status Rosuvastatin Calcium 20 MG Orally Once a day 1 tablet 24h Active Potassium Chloride Corie ER 10 MEQ Orally Once a day 1 tablet with food 24h Jun, 30 days Active Aspirin 325 MG Orally Once a day 1 tablet 24h Active ProAir HFA 108 (90 Base) MCG/ACT Inhalation 3 times a day 2 puffs as needed 8h Jul, 10 days Active Tramadol HCl 50 mg Orally Once a day 1 tablet as needed in the morning 24h Active Trulicity 0.75 MG/0.5ML Subcutaneous once weekly 0.5 ml 28 Active True Metrix Blood Glucose Test - In Vitro Once a day & prn as directed Active Pen [place] 30G X 5 MM as directed 24h Active Cyclobenzaprine HCl 10 mg Orally Once a day 1/2 to 1 tablet as needed at bedtime 24h 30 Active Fish Oil 1000 MG Orally twice a day 1 capsule 12h Active Fenofibrate 145 MG Orally Once a day 1 tablet 24h Active Levothyroxine Sodium 75 mcg Orally Once a day 1 tablet on an empty stomach in the morning 24h 90 Active Requip 0.5 MG Orally Once a day 1 tablet 1 to 3 hours before bedtime 24h 30 day(s) Active Aspirin 81 MG Orally Once a day 1 tablet 24h Active Gabapentin 100 mg Orally three times a day prn 1 capsule 30 days Active Hydrochlorothiazide 25 MG Orally every other day 1/2 tablet Active Meclizine HCl 25 MG Orally 3 times a day 1 tablet as needed 8h 28 days Active Clopidogrel Bisulfate 75 MG Orally Once a day 1 tablet 24h Active Vitamin B-12 50 MCG Active TRUEplus Lancets 30G - as directed 24h Active Lisinopril 10 MG Orally Once a day 1 tablet 24h Active Isosorbide Mononitrate 60 mg Orally Once a day 1 tablet 24h Active Levothyroxine Sodium 75 MCG Orally Once a day 1 tablet on an empty stomach in the morning 24h 90 Active Metoprolol Tartrate 25 MG Orally Once a day 1/2 tablet 24h Active Vitamin D3 25538 UNIT TAKE ONE CAPSULE BY MOUTH ONCE A WEEK 84 Active RESULTS Name Result Date Reference Range A1C (IN HOUSE) A1C IN HOUSE 5.1 4.3 - 5.6 % Previous A1c 5.6 Lot [id number] Exp date CMP 2017-03-06 Glucose, Serum 102 65-99 BUN 15 8-27 Creatinine, Serum 0.77 0.57-1.00 eGFR If NonAfricn Am 82 >59 eGFR If Africn Am 95 >59 BUN/Creatinine Ratio 19 12-28 Sodium, Serum 144 134-144 Potassium, Serum 3.9 3.5-5.2 Chloride, Serum 101 96-106 Carbon Dioxide, Total 25 18-29 Calcium, Serum 10.4 8.7-10.3 Protein, Total, Serum 7.1 6.0-8.5 Albumin, Serum 4.6 3.6-4.8 Globulin, Total 2.5 1.5-4.5 A/G Ratio 1.8 1.2-2.2 Bilirubin, Total 0.4 0.0-1.2 Alkaline Phosphatase, S 34 39-117 AST (SGOT) 18 0-40 ALT (SGPT) 14 0-32 TSH 2017-03-06 TSH 1.120 0.450-4.500 Mammogram, Bilateral Screening 2017-03-11 Carotid Ultrasound 2017-04-18 PROCEDURES Procedure Date Ordered Result Body Site LAB NOT BILLED BY [facility] Mar 06, 2017 GLYCATED HEMOGLOBIN TEST Mar 06, 2017 VENIPUNCT, ROUTINE* Mar 06, 2017 SINGLE IMMUNIZATION ADMIN Mar 06, 2017 FLUARIX QUAD (3 AND UP) 2016Mar 06, 2017 INSTRUCTIONS MEDICATIONS ADMINISTERED No Known Medications MEDICAL (GENERAL) HISTORY Type Description Date Surgical History cholecystectomy Surgical History hernia repair Surgical History carotid endarterectomy Surgical History 2 stents placed-cardiac Surgical History cataract surgery 2006/2007 Hospitalization History black out spells Hospitalization History Surgery(s) only
--- OUTSIDE RECORDS SUMMARY | 2018-04-05 20:01 | XMS REPORT ---
Author Author SAKSHI TIDWELL [facility] Address [address] [place] [address] Care Team Providers Care Real Estate Agent/Broker Name Role Phone SAKHSI TIDWELL Unavailable PROBLEMS Type Condition ICD9-CM Code [id number] Code Onset Dates Condition Status SNOMED Code Problem Acquired hypothyroidism E03.9 Active 406144740 Problem Type 2 diabetes mellitus with diabetic chronic kidney disease E11.22 Active 44142660 Problem Restless leg syndrome G25.81 Active 95221222 Problem Hypercalcemia E83.52 Active 43937797 Problem Bilateral carotid artery disease I77.9 Active 717957946 Problem Low back pain M54.5 Active 659641625 Problem Chronic kidney disease, stage 1 N18.1 Active 177139801 Problem Paresthesia of both hands R20.2 Active 458557352 Problem Osteoarthritis of spine with radiculopathy, cervical region M47.22 Active 519038416 Problem Renal insufficiency N28.9 Active 722019793 Problem Coronary artery disease involving [place] coronary artery of [place] heart without angina pectoris I25.10 Active 5564604494899 Problem Essential hypertension I10 Active 88766486 Problem Vitamin D deficiency E55.9 Active 51690939 Problem Type 2 diabetes mellitus without complication, without long-term current use of insulin E11.9 Active 543955170 Problem Abnormal blood chemistry R79.9 Active 969835610 Problem Mixed hyperlipidemia E78.2 Active 403698120 ALLERGIES No Information SOCIAL HISTORY Never Assessed PLAN OF CARE VITAL SIGNS MEDICATIONS Unknown [...]
--- OUTSIDE RECORDS SUMMARY | 2018-04-05 20:01 | XMS REPORT ---
Author Author SAKSHI TIDWELL [facility] Address [address] [place] [address] Care Team Providers Care Microsoft Office Instructor Name Role Phone SAKSHI TIDWELL Unavailable PROBLEMS Type Condition ICD9-CM Code NRB63-US Code Onset Dates Condition Status SNOMED Code Problem Acquired hypothyroidism E03.9 Active 718175787 Problem Type 2 diabetes mellitus with diabetic chronic kidney disease E11.22 Active 64170137 Problem Restless leg syndrome G25.81 Active 75406954 Problem Hypercalcemia E83.52 Active 11161727 Problem Bilateral carotid artery disease I77.9 Active 239094300 Problem Low back pain M54.5 Active 347797647 Problem Chronic kidney disease, stage 1 N18.1 Active 576541549 Problem Paresthesia of both hands R20.2 Active 856007532 Problem Osteoarthritis of spine with radiculopathy, cervical region M47.22 Active 424886437 Problem Renal insufficiency N28.9 Active 800495693 Problem Coronary artery disease involving [place] coronary artery of [place] heart without angina pectoris I25.10 Active 2601853437932 Problem Essential hypertension I10 Active 32457140 Problem Vitamin D deficiency E55.9 Active 32867225 Problem Type 2 diabetes mellitus without complication, without long-term current use of insulin E11.9 Active 688102555 Problem Abnormal blood chemistry R79.9 Active 547187423 Problem Mixed hyperlipidemia E78.2 Active 355956891 ALLERGIES Unknown Allergies SOCIAL HISTORY No smoking Hx information available PLAN OF CARE VITAL SIGNS MEDICATIONS Unknown Medications RESULTS No Results PROCEDURES No Known procedures IMMUNIZATIONS No Known Immunizations
--- OUTSIDE RECORDS SUMMARY | 2018-04-05 20:01 | XMS REPORT ---
Author Author SAKSHI TIDWELL Organization [facility] Address [address] [place] [address] Care Team Providers Care Shelter Supervisor Name Role Phone SAKSHI TIDWELL Unavailable PROBLEMS Type Condition ICD9-CM Code [id number] Code Onset Dates Condition Status SNOMED Code Problem Mixed hyperlipidemia E78.2 Active 564809476 Problem Restless leg syndrome G25.81 Active 11885412 Problem Acquired hypothyroidism E03.9 Active 546418550 Problem Hypercalcemia E83.52 Active 31398651 Problem Bilateral carotid artery disease I77.9 Active 860053908 Problem Chronic kidney disease, stage 1 N18.1 Active 635797238 Problem Type 2 diabetes mellitus with diabetic chronic kidney disease E11.22 Active 74204477 Problem Osteoarthritis of spine with radiculopathy, cervical region M47.22 Active 667896786 Problem Low back pain M54.5 Active 800713999 Problem Vitamin D deficiency E55.9 Active 19627964 Problem Coronary artery disease involving [place] coronary artery of [place] heart without angina pectoris I25.10 Active 9608900728808 Problem Essential hypertension I10 Active 26244685 Problem Renal insufficiency N28.9 Active 975686340 Problem Type 2 diabetes mellitus without complication, without long-term current use of insulin E11.9 Active 298983729 ALLERGIES No Information ENCOUNTERS Encounter Location Date Diagnosis [facility] [id number] [address] September, [facility] [id number] [place] [address] 77036- [address] September, [facility] [id number] [place] [address] 02018- 5918 Aug, Type 2 diabetes mellitus without complication, without long- term current use of insulin E11.9 ; Essential hypertension I10 ; Acquired hypothyroidism E03.9 and Low back pain M54.5 [facility] [address] [address] Aug, [facility] [id number] [place] [address] 26180- 0654 Aug, [facility] [id number] [place] [address] 31472- 7108 Jul, [facility] [id number] [place] [address] 51551- 5585 Jul, Coronary artery disease involving point hope ira coronary artery of [place] heart without angina pectoris I25.10 [facility] [id number] [place] [address] 71975- 5087 Jun, Low back pain M54.5 and Essential hypertension I10 [facility] [id number] [place] [address] 98862- 1507 Jun, Head cold J00 [facility] [id number] [place] [address] 75408- 3213 May, [facility] [id number] [place] [address] 61758- 5753 Apr, Type 2 diabetes mellitus without complication, without long- term current use of insulin E11.9 [facility] [id number] [place] [address] 96293- 5148 Apr, Type 2 diabetes mellitus without complication, without long- term current use of insulin E11.9 [facility] [id number] [place] [address] 32074- 1024 Apr, Essential hypertension I10 [facility] [id number] [place] [address] 94992- 1172 Mar, [facility] [id number] [place] [address] 70832- 7993 Mar, [facility] [id number] [place] [address] 48411- 5022 Mar, Osteoarthritis of spine with radiculopathy, cervical region M47.22 [address] [address] Mar, [facility] [id number] [place] [address] 50439- 7981 Feb, [facility] [id number] [place] [address] 54878- 8181 Feb, Screening breast examination Z12.31 ; Bilateral carotid artery disease I77.9 ; Low back pain M54.5 ; Osteoarthritis of spine with radiculopathy, cervical region M47.22 ; Renal insufficiency N28.9 ; Vitamin D deficiency E55.9 ; Restless leg syndrome G25.81 ; Acquired hypothyroidism E03.9 ; Coronary artery disease involving [place] coronary artery of [place] heart without angina pectoris I25.10 ; Vertigo R42 ; Essential hypertension I10 ; Type 2 diabetes mellitus with diabetic chronic kidney disease E11.22 and Encounter for immunization Z23 [facility] [id number] [place] [address] 16446- 6149 Jan, [facility] [id number] [place] [address] 27858- 4320 Jan, Type 2 diabetes mellitus without complication, without long- term current use of insulin E11.9 ; Low back pain M54.5 ; Osteoarthritis of spine with radiculopathy, cervical region M47.22 ; Renal insufficiency N28.9 ; Vitamin D deficiency E55.9 ; Restless leg syndrome G25.81 ; Bilateral carotid artery disease I77.9 ; Acquired hypothyroidism E03.9 ; Coronary artery disease involving [place] coronary artery of [place] heart without angina pectoris I25.10 and Lipoma of back D17.1 [facility] [id number] [place] [address] 76211- 2495 Jan, Type 2 diabetes mellitus without complication, without long- term current use of insulin E11.9 [facility] [id number] [place] [address] 28378- 5534 Dec, Osteoarthritis of spine with radiculopathy, cervical region M47.22 [facility] [id number] [place] [address] 45980- 5787 Nov, [facility] [id number] [place] [address] 13274- 4419 Nov, Low back pain M54.5 and Osteoarthritis of spine with radiculopathy, cervical region M47.22 [facility] [id number] [place] [address] 49180- 4963 Nov, Osteoarthritis of spine with radiculopathy, cervical [...] hypothyroidism E03.9 ; Coronary artery disease involving point [place] ir[place] coronary artery of [place] heart without angina pectoris I25.10 ; Hypercalcemia E83.52 and Left foot pain M79.672 [facility] [id number] [place] [address] 65154- 9906 Oct, [facility] [id number] [place] [address] 49269- 6411 Oct, Osteoarthritis of spine with radiculopathy, cervical region M47.22 [facility] [id number] [place] [address] 38318- 4291 Oct, Abnormal blood chemistry R79.9 [facility] [id number] [place] [address] 51772- 1569 September, Osteoarthritis of spine with radiculopathy, cervical region M47.22 ; Essential hypertension I10 ; Renal insufficiency N28.9 ; Type 2 diabetes mellitus without complication, without long-term current use of insulin E11.9 ; Vitamin D deficiency E55.9 ; Paresthesia of both hands R20.2 ; Low back pain M54.5 ; Restless leg syndrome G25.81 and Dizziness R42 [facility] [address] [address] September, [facility] [address] [address] September, [facility] [address] [address] 4761 September, [facility] [id number] [place] [address] 61288- 3987 September, [facility] [id number] [place] [address] 11243- 3058 Aug, [facility] [id number] [place] [address] 07526- 6345 Aug, [facility] [id number] [place] [address] 81839- 3884 Aug, [facility] [id number] [place] [address] 94230- 3621 Aug, [facility] [id number] [place] [address] 80648- 9361 Aug, Osteoarthritis of spine with radiculopathy, cervical region M47.22 [facility] [address] [address] 6228 Aug, Essential hypertension I10 ; Renal insufficiency N28.9 ; Type 2 diabetes mellitus without complication, without long-term current use of insulin E11.9 ; Vitamin D deficiency E55.9 ; Paresthesia of both hands R20.2 ; Low back pain M54.5 ; Restless leg syndrome G25.81 ; Osteoarthritis of spine with radiculopathy, cervical region M47.22 and Dizziness R42 [facility] [address] [address] 6[address] Jul, [facility] [address] [address]- 6992 Jul, [facility] [id number] [place] [address] 46415- 0838 Jul, Essential hypertension I10 ; Paresthesia of both hands R20.2 ; Upper respiratory tract infection, unspecified type J06.9 and Low back pain M54.5 [facility] [address] [address]- 7650 15 Jul, 2016 [facility] [id number] [place] [address] 17008- 4025 Jul, [facility] [id number] [place] [address] 29782- 6899 Jul, Renal insufficiency N28.9 ; Vitamin D deficiency E55.9 ; Type 2 diabetes mellitus without complication, without long-term current use of insulin E11.9 ; Restless leg syndrome G25.81 ; Type 2 diabetes mellitus with diabetic chronic kidney disease E11.22 and Chronic kidney disease, stage 1 N18.1 [facility] [id number] [place] [address] 31083- 7059 Jul, Renal insufficiency N28.9 [facility] [id number] [place] [address] 68760- 2125 Jun, [facility] [id number] [place] [address] 91306- 4014 Jun, Renal insufficiency N28.9 ; Vitamin D deficiency E55.9 ; Type 2 diabetes mellitus without complication, without long-term current use of insulin E11.9 ; Restless leg syndrome G25.81 ; Type 2 diabetes mellitus with diabetic chronic kidney disease E11.22 and Chronic kidney disease, stage 1 N18.1 [facility] [address] [address]- 3546 Jun, [facility] [id number] [place] [address] 68240- 9560 May, [facility] [address] [address]- 7379 May, [facility] [id number] [place] [address] 40432- 2730 May, [facility] [address] [address]- 7177 May, [facility] [id number] [place] [address] 62799- 0922 May, [facility] [id number] [place] [address] 00546- 7536 Apr, Acquired hypothyroidism E03.9 ; Essential hypertension I10 ; Type 2 diabetes mellitus without complication, without long-term current use of insulin E11.9 and Mixed hyperlipidemia E78.2 [facility] [id number] [place] [address] 42729- 4906 Apr, Type 2 diabetes mellitus without complication, without long- term current use of insulin E11.9 ; Coronary artery disease involving [place] coronary artery of [place] heart without angina pectoris I25.10 ; Essential hypertension I10 and Acquired hypothyroidism E03.9 [facility] [id number] [place] [address] 25387- 5240 Apr, Cellulitis of left lower extremity L03.116 [facility] [address] [place] [address] 43862- 3630 Apr, Essential hypertension I10 ; Mixed hyperlipidemia E78.2 ; Type 2 diabetes mellitus without complication, without long-term current use of insulin E11.9 ; Acquired hypothyroidism E03.9 ; Cellulitis of left lower extremity L03.116 and Coronary artery disease involving [place] coronary artery of [place] heart without angina pectoris I25.10 [facility] [address] [address]- 2398 Apr, [facility] [id number] [place] [address] 90485 -9052 Dec, Dermatitis L30.9 [facility] [id number] [place] [address] 75604- 8920 Aug, [facility] [id number] [place] [address] 25525- 1865 Aug, [facility] [address] [id number] [place] [address]- 5376 Jan, [facility] [place] [facility] [address] [id number] [place] [address]- 3876 Jan, [facility] [place] [facility] [address] [id number] [place] [address]- 0986 Jun, [facility] [place] [facility] [address] [id number] [place] [address]- 6714 May, [facility] [address] [id number] [place] [address]- 0106 May, [facility] [place] [facility] [address] [id number] [place] [address]- 9192 May, [facility] [address] [id number] [place] [address]- 4172 Apr, [facility] [address] [id number] [place] [address]- 1636 Feb, [facility] [address] [id number] [place] [address]- 4755 Feb, [facility] [address] [id number] [place] [address]- 2378 Nov, [facility] [place] [facility] [address] [id number] [place] [address]- 0519 Nov, [facility] [place] [facility] [address] [id number] [place] [address]- 0023 Nov, [facility] [place] [facility] [address] [id number] [place] [address]- 7043 Nov, [facility] [place] [facility] [address] [id number] [place] [address]- 0453 Nov, [facility] [place] [facility] [address] [id number] [place] [address]- 8225 Nov, [facility] [place] [facility] [address] [id number] [place] [address]- 3904 Nov, IMMUNIZATIONS No Known Immunizations SOCIAL HISTORY Never Assessed REASON FOR VISIT Refill request PLAN OF CARE VITAL SIGNS MEDICATIONS Medication Instructions Dosage Frequency Start Date End Date Duration Status Metoprolol Tartrate 25 MG Orally Once a day 1/2 tablet 24h Active RESULTS No Results PROCEDURES No Known procedures INSTRUCTIONS MEDICATIONS ADMINISTERED No Known Medications MEDICAL (GENERAL) HISTORY Type Description Date Surgical History cholecystectomy Surgical History hernia repair Surgical History carotid endarterectomy Surgical History 2 stents placed-cardiac Surgical History cataract surgery Hospitalization History black out spells Hospitalization History Surgery(s) only
--- OUTSIDE RECORDS SUMMARY | 2018-04-05 20:02 | XMS REPORT ---
Author Author SAKSHI TIDWELL [facility] Address [address] [place] [address] Care Team Providers Care Aircraft Quality Control Inspector Name Role Phone SAKSHI TIDWELL Unavailable PROBLEMS Type Condition ICD9-CM Code [id number] Code Onset Dates Condition Status SNOMED Code Problem Essential hypertension I10 Active 54390209 Problem Type 2 diabetes mellitus with diabetic chronic kidney disease E11.22 Active 14128586 Problem Chronic kidney disease, stage 1 N18.1 Active 630894796 Problem Bilateral carotid artery disease I77.9 Active 681156548 Problem Hypercalcemia E83.52 Active 18836593 Problem Low back pain M54.5 Active 784627811 Problem Restless leg syndrome G25.81 Active 42150762 Problem Paresthesia of both hands R20.2 Active 216896677 Problem Osteoarthritis of spine with radiculopathy, cervical region M47.22 Active 371291122 Problem Abnormal blood chemistry R79.9 Active 875744071 Problem Coronary artery disease involving hughes coronary artery of hughes heart without angina pectoris I25.10 Active 7444194101433 Problem Acquired hypothyroidism E03.9 Active 431129468 Problem Vitamin D deficiency E55.9 Active 20326817 Problem Type 2 diabetes mellitus without complication, without long-term current use of insulin E11.9 Active 045714443 Problem Renal insufficiency N28.9 Active 151223785 Problem Mixed hyperlipidemia E78.2 Active 507416092 ALLERGIES Substance Reaction Event Type Date Status Bactrim DS Unknown Drug Allergy Apr, Active SOCIAL HISTORY No smoking Hx information available PLAN OF CARE VITAL SIGNS MEDICATIONS Medication Instructions Dosage Frequency Start Date End Date Duration Status Keflex 500 MG Orally 3 times a day 1 capsule 8h Apr, Apr, 10 days Active RESULTS No Results PROCEDURES No Known procedures IMMUNIZATIONS No Known Immunizations
--- OUTSIDE RECORDS SUMMARY | 2018-04-05 20:02 | XMS REPORT ---
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 Name Role Phone SAKSHI TIDWELL Unavailable PROBLEMS Type Condition ICD9-CM Code HNJ40-MR Code Onset Dates Condition Status SNOMED Code Problem Mixed hyperlipidemia E78.2 Active 887457788 Problem Restless leg syndrome G25.81 Active 29630593 Problem Acquired hypothyroidism E03.9 Active 763527255 Problem Hypercalcemia E83.52 Active 84235759 Problem Bilateral carotid artery disease I77.9 Active 924955064 Problem Chronic kidney disease, stage 1 N18.1 Active 025331128 Problem Type 2 diabetes mellitus with diabetic chronic kidney disease E11.22 Active 65624259 Problem Osteoarthritis of spine with radiculopathy, cervical region M47.22 Active 043879735 Problem Low back pain M54.5 Active 991258283 Problem Vitamin D deficiency E55.9 Active 56919575 Problem Coronary artery disease involving [place] coronary artery of [place] heart without angina pectoris I25.10 Active 1807720927362 Problem Essential hypertension I10 Active 92685808 Problem Renal insufficiency N28.9 Active 940426398 Problem Type 2 diabetes mellitus without complication, without long-term current use of insulin E11.9 Active 803786814 ALLERGIES No Information ENCOUNTERS Encounter Location Date Diagnosis [facility] [id number] [address] September, [facility] [id number] [place] [address] 71907- 9587 Aug, Type 2 diabetes mellitus without complication, without long- term current use of insulin E11.9 ; Essential hypertension I10 ; Acquired hypothyroidism E03.9 and Low back pain M54.5 [facility] [id number] [place] [address] 30705- 9163 Aug, [facility] [id number] [place] [address] 30510- 1846 Aug, [facility] [id number] [place] [address] 53266- 2570 Jul, [facility] [id number] [place] [address] 23860- 5077 Jul, Coronary artery disease involving [place] coronary artery of [place] heart without angina pectoris I25.10 [facility] [id number] [place] [address] 10696- 0664 Jun, Low back pain M54.5 and Essential hypertension I10 [facility] [id number] [place] [address] 62042- 6407 Jun, Head cold J00 [facility] [id number] [place] [address] 03861- 3322 May, [facility] [id number] [place] [address] 21088- 3902 Apr, Type 2 diabetes mellitus without complication, without long- term current use of insulin E11.9 [facility] [id number] [place] [address] 89788- 5968 12 Apr, 2017 Type 2 diabetes mellitus without complication, without long- term current use of insulin E11.9 [facility] [id number] [place] [address] 89301- 1576 Apr, Essential hypertension I10 [facility] [id number] [place] [address] 12531- 3923 Mar, [facility] [id number] [place] [address] 24835- 9160 Mar, [facility] [id number] [place] [address] 73865- 1832 06 Mar, 2017 Osteoarthritis of spine with radiculopathy, cervical region M47.22 [facility] [id number] [place] [address] 90892- 9860 Mar, [facility] [id number] [place] [address] 20554- 4457 Feb, [facility] [id number] [place] [address] 02543- 0280 Feb, Screening breast examination Z12.31 ; Bilateral carotid artery disease I77.9 ; Low back pain M54.5 ; Osteoarthritis of spine with radiculopathy, cervical region M47.22 ; Renal insufficiency N28.9 ; Vitamin D deficiency E55.9 ; Restless leg syndrome G25.81 ; Acquired hypothyroidism E03.9 ; Coronary artery disease involving [place] coronary artery of [place] heart without angina pectoris I25.10 ; Vertigo R42 ; Essential hypertension I10 ; Type 2 diabetes mellitus with diabetic chronic kidney disease E11.22 and Encounter for immunization Z23 [facility] [id number] [place] [address] 84703- 2353 Jan, [facility] [id number] [place] [address] 67306- 4838 Jan, Type 2 diabetes mellitus without complication, without long- term current use of insulin E11.9 ; Low back pain M54.5 ; Osteoarthritis of spine with radiculopathy, cervical region M47.22 ; Renal insufficiency N28.9 ; Vitamin D deficiency E55.9 ; Restless leg syndrome G25.81 ; Bilateral carotid artery disease I77.9 ; Acquired hypothyroidism E03.9 ; Coronary artery disease involving [place] coronary artery of [place] heart without angina pectoris I25.10 and Lipoma of back D17.1 [facility] [id number] [place] [address] 93772- 4061 Jan, Type 2 diabetes mellitus without complication, without long- term current use of insulin E11.9 [facility] [id number] [place] [address] 28886- 1816 Dec, Osteoarthritis of spine with radiculopathy, cervical region M47.22 [facility] [id number] [place] [address] 51930- 0771 Nov, [facility] [id number] [place] [address] 48932- 8093 Nov, Low back pain M54.5 and Osteoarthritis of spine with radiculopathy, cervical region M47.22 [facility] [id number] [place] [address] 98625- 3155 Nov, Osteoarthritis of spine with radiculopathy, cervical [...] hypothyroidism E03.9 ; Coronary artery disease involving [place] coronary artery of [place] heart without angina pectoris I25.10 ; Hypercalcemia E83.52 and Left foot pain M79.672 [facility] [id number] [place] [address] 04702- 0608 Oct, [facility] [id number] [place] [address] 86559- 5871 Oct, Osteoarthritis of spine with radiculopathy, cervical region M47.22 [facility] [id number] [place] [address] 26684- 3026 Oct, Abnormal blood chemistry R79.9 [facility] [id number] [place] [address] 20911- 3915 September, Osteoarthritis of spine with radiculopathy, cervical region M47.22 ; Essential hypertension I10 ; Renal insufficiency N28.9 ; Type 2 diabetes mellitus without complication, without long-term current use of insulin E11.9 ; Vitamin D deficiency E55.9 ; Paresthesia of both hands R20.2 ; Low back pain M54.5 ; Restless leg syndrome G25.81 and Dizziness R42 [facility] [id number] [place] [address] 56887- 4580 September, [facility] [address] [address] September, [facility] [address] [address] September, [facility] [address] [address] 8881 September, [facility] [address] [address] 3568 Aug, [facility] [address] [address] 5394 Aug, [facility] [address] [address] 0884 Aug, [facility] [address] [address] 6381 Aug, [facility] [address] [address] 4427 Aug, Osteoarthritis of spine with radiculopathy, cervical region M47.22 [facility] [address] [address] 3162 Aug, Essential hypertension I10 ; Renal insufficiency N28.9 ; Type 2 diabetes mellitus without complication, without long-term current use of insulin E11.9 ; Vitamin D deficiency E55.9 ; Paresthesia of both hands R20.2 ; Low back pain M54.5 ; Restless leg syndrome G25.81 ; Osteoarthritis of spine with radiculopathy, cervical region M47.22 and Dizziness R42 [facility] [id number] [address] 6713 Jul, [facility] [address] [address] 4127 Jul, [facility] [id number] [address] 5899 Jul, Essential hypertension I10 ; Paresthesia of both hands R20.2 ; Upper respiratory tract infection, unspecified type J06.9 and Low back pain M54.5 [facility] [address] [address] 0376 Jul, [facility] [id number] [place] [address] 90180- 2758 Jul, [facility] [id number] [place] [address] 23588- 3008 Jul, Renal insufficiency N28.9 ; Vitamin D deficiency E55.9 ; Type 2 diabetes mellitus without complication, without long-term current use of insulin E11.9 ; Restless leg syndrome G25.81 ; Type 2 diabetes mellitus with diabetic chronic kidney disease E11.22 and Chronic kidney disease, stage 1 N18.1 [facility] [id number] [place] [address] 12437- 0906 Jul, Renal insufficiency N28.9 [facility] [id number] [place] [address] 18341- 6793 Jun, [facility] [id number] [place] [address] 76607- 9447 Jun, Renal insufficiency N28.9 ; Vitamin D deficiency E55.9 ; Type 2 diabetes mellitus without complication, without long-term current use of insulin E11.9 ; Restless leg syndrome G25.81 ; Type 2 diabetes mellitus with diabetic chronic kidney disease E11.22 and Chronic kidney disease, stage 1 N18.1 [facility] [address] [address]- 1503 Jun, [facility] [address] [address]- 2969 May, [facility] [id number] [place] [address] 93190- 3221 May, [facility] [address] [address]- 2074 May, [facility] [id number] [place] [address] 92698- 1356 May, [facility] [id number] [place] [address] 17173- 3304 May, [facility] [id number] [place] [address] 46744- 6652 Apr, Acquired hypothyroidism E03.9 ; Essential hypertension I10 ; Type 2 diabetes mellitus without complication, without long-term current use of insulin E11.9 and Mixed hyperlipidemia E78.2 [facility] [id number] [place] [address] 36747- 3658 Apr, Type 2 diabetes mellitus without complication, without long- term current use of insulin E11.9 ; Coronary artery disease involving [place] coronary artery of [place] heart without angina pectoris I25.10 ; Essential hypertension I10 and Acquired hypothyroidism E03.9 [facility] [id number] [place] [address] 66101- 2833 Apr, Cellulitis of left lower extremity L03.116 [facility] [id number] [place] [address] 90694- 7331 Apr, Essential hypertension I10 ; Mixed hyperlipidemia E78.2 ; Type 2 diabetes mellitus without complication, without long-term current use of insulin E11.9 ; Acquired hypothyroidism E03.9 ; Cellulitis of left lower extremity L03.116 and Coronary artery disease involving [place] coronary artery of [place] heart without angina pectoris I25.10 [facility] [id number] [place] [address] 45795- 3369 Apr, [facility] [id number] [place] [address] 76332 -9282 Dec, Dermatitis L30.9 [facility] [id number] [place] [address] 90295- 2120 Aug, [facility] [id number] [place] [address] 63310- 8251 Aug, [facility] [id number] [place] [address] 11686- 1733 Jan, [facility] [address] [id number] [address]- 2546 Jan, [facility] [address] [facility] [id number] [address]- 2546 Jun, [facility] [address] [facility] [id number] [address] 2546 May, [facility] [address] [facility] [id number] [address]- 3756 May, [facility] [address] [id number] [address]- 2546 May, [facility] [address] [facility] [id number] [address]- 2666 Apr, [facility] [address] [facility] [id number] [address]- 9476 Feb, [facility] [address] [facility] [id number] [address]- 0256 Feb, [facility] [address] [facility] [id number][place] [address]- 7701 Nov, [facility] [address] [facility] [id number] [address]- 3766 Nov, [facility] [id number] [address]- 2696 Nov, [facility] [address] [facility] [id number][place] [address]- 3286 Nov, [facility] [address] [facility] [id number] [address]- 7369 Nov, [facility] [address] [facility] [id number] [address]- 8396 Nov, [facility] [address] [facility] [id number] [address]- 3438 Nov, IMMUNIZATIONS No Known Immunizations SOCIAL HISTORY Never Assessed REASON FOR VISIT Controlled Med Refill PLAN OF CARE VITAL SIGNS MEDICATIONS Medication Instructions Dosage Frequency Start Date End Date Duration Status Tramadol HCl 50 mg Orally 2 times a day 1 tablet as needed 12h 07 Mar, 2017 Active Tramadol HCl 50 mg Orally twice a day 1 tablet as needed in the morning 12h Active RESULTS No Results PROCEDURES No Known procedures INSTRUCTIONS MEDICATIONS ADMINISTERED No Known Medications MEDICAL (GENERAL) HISTORY Type Description Date Surgical History cholecystectomy Surgical History hernia repair Surgical History carotid endarterectomy Surgical History 2 stents placed-cardiac Surgical History cataract surgery Hospitalization History black out spells Hospitalization History Surgery(s) only
--- OUTSIDE RECORDS SUMMARY | 2018-04-05 20:02 | XMS REPORT ---
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 Name Role Phone SAKSHI TIDWELL Unavailable PROBLEMS Type Condition ICD9-CM Code ANT86-BY Code Onset Dates Condition Status SNOMED Code Problem Acquired hypothyroidism E03.9 Active 003787385 Problem Type 2 diabetes mellitus with diabetic chronic kidney disease E11.22 Active 36318670 Problem Restless leg syndrome G25.81 Active 70972334 Problem Hypercalcemia E83.52 Active 05534187 Problem Bilateral carotid artery disease I77.9 Active 747074361 Problem Low back pain M54.5 Active 044553703 Problem Chronic kidney disease, stage 1 N18.1 Active 143131150 Problem Paresthesia of both hands R20.2 Active 711940217 Problem Osteoarthritis of spine with radiculopathy, cervical region M47.22 Active 033922430 Problem Renal insufficiency N28.9 Active 205044782 Problem Coronary artery disease involving [place] coronary artery of [place] heart without angina pectoris I25.10 Active 1099228242810 Problem Essential hypertension I10 Active 83687958 Problem Vitamin D deficiency E55.9 Active 29849440 Problem Type 2 diabetes mellitus without complication, without long-term current use of insulin E11.9 Active 639051163 Problem Abnormal blood chemistry R79.9 Active 921459490 Problem Mixed hyperlipidemia E78.2 Active 498377677 ALLERGIES Substance Reaction Event Type Date Status Bydureon leg irritation with knot at inj site Drug Allergy Jul, Active Bactrim DS Unknown Drug Allergy Jul, Active SOCIAL HISTORY Never Assessed PLAN OF CARE Activity Details Follow Up 4 weeks Reason:DM/Renal/Restless Leg VITAL SIGNS Height 64.5 in 2016-07-19 Weight 202.1 lbs 2016-07-19 Temperature 97.0 degrees Fahrenheit 2016-07-19 Heart Rate 74 bpm 2016-07-19 Respiratory Rate 20 2016-07-19 BMI 34.15 kg/m2 2016-07-19 Blood pressure systolic 130 mmHg 2016-07-19 Blood pressure diastolic 82 mmHg 2016-07-19 MEDICATIONS Medication Instructions Dosage Frequency Start Date End Date Duration Status Lisinopril 10 MG Orally Once a day 1 tablet 24h 90 Active Hydrochlorothiazide 25 MG Orally every other day 1/2 tablet Active Rosuvastatin Calcium 20 MG Orally Once a day 1 tablet 24h Active Fish Oil 1000 MG Orally twice a day 1 capsule 12h Active True Metrix Blood Glucose Test - In Vitro Once a day as directed 24h Jul Active Isosorbide Mononitrate 60 mg Orally Once a day 1 tablet 24h Active Cholecalciferol 3000 UNIT Orally [place] [address] unit rx 1 tablet Active Cholecalciferol 69578 UNIT Orally once weekly for 12 weeks 1 tablet Active Metoprolol Tartrate 25 MG Orally Once a day 1/2 tablet 24h 30 Active Trulicity 0.75 MG/0.5ML Subcutaneous once weekly 0.5 ml Active Potassium Chloride ER 10 MEQ Orally Once a day 1 capsule with food 24h 30 Active Fenofibric Acid 135 MG Orally Once a day 1 capsule 24h Active Aspirin 325 MG Orally Once a day 1 tablet 24h Active Levothyroxine Sodium 75 MCG Orally Once a day 1 tablet on an empty stomach in the morning 24h 90 Active Vitamin B-12 50 MCG Active TRUEplus Lancets 30G - as directed 24h Jul, Active Clopidogrel Bisulfate 75 MG Orally Once a day 1 tablet 24h Active Requip 0.5 MG Orally Once a day 1 tablet 1 to 3 hours before bedtime 24h Jul, 30 day(s) Active RESULTS No Results PROCEDURES [...]
--- OUTSIDE RECORDS SUMMARY | 2018-04-05 20:02 | XMS REPORT ---
Author Author SAKSHI TIDWELL Organization [facility] Address [address] [place] [address] Care Team Providers Care Rental Sales Agent Name Role Phone SAKSHI TIDWELL Unavailable PROBLEMS Type Condition ICD9-CM Code [id number] Code Onset Dates Condition Status SNOMED Code Problem Mixed hyperlipidemia E78.2 Active 134039463 Problem Restless leg syndrome G25.81 Active 13614501 Problem Acquired hypothyroidism E03.9 Active 626057326 Problem Hypercalcemia E83.52 Active 40973099 Problem Bilateral carotid artery disease I77.9 Active 697360254 Problem Chronic kidney disease, stage 1 N18.1 Active 948239598 Problem Type 2 diabetes mellitus with diabetic chronic kidney disease E11.22 Active 23179545 Problem Osteoarthritis of spine with radiculopathy, cervical region M47.22 Active 129962789 Problem Low back pain M54.5 Active 117381029 Problem Vitamin D deficiency E55.9 Active 48262243 Problem Coronary artery disease involving [place] coronary artery of [place] heart without angina pectoris I25.10 Active 3051677116616 Problem Essential hypertension I10 Active 24486354 Problem Renal insufficiency N28.9 Active 400825045 Problem Type 2 diabetes mellitus without complication, without long-term current use of insulin E11.9 Active 729244631 ALLERGIES No Information ENCOUNTERS Encounter Location Date Diagnosis [facility] [id number] [address] September, [facility] [id number] [place] [address] 03902- 7715 September, [facility] [address] [place] [address] 49908- 8253 Aug, Type 2 diabetes mellitus without complication, without long- term current use of insulin E11.9 ; Essential hypertension I10 ; Acquired hypothyroidism E03.9 and Low back pain M54.5 [facility] [address] [address] Aug, [facility] [id number] [place] [address] 92378- 9649 Aug, [facility] [id number] [place] [address] 39543- 6405 Jul, [facility] [id number] [place] [address] 19357- 0356 Jul, Coronary artery disease involving [place] coronary artery of [place] heart without angina pectoris I25.10 [facility] [id number] [place] [address] 35842- 8991 Jun, Low back pain M54.5 and Essential hypertension I10 [facility] [id number] [place] [address] 58232- 9815 Jun, Head cold J00 [facility] [id number] [place] [address] 73668- 5957 May, [facility] [id number] [place] [address] 40014- 2767 Apr, Type 2 diabetes mellitus without complication, without long- term current use of insulin E11.9 [facility] [id number] [place] [address] 16520- 8542 Apr, Type 2 diabetes mellitus without complication, without long- term current use of insulin E11.9 [facility] [id number] [place] [address] 24587- 0796 Apr, Essential hypertension I10 [facility] [id number] [place] [address] 26390- 4044 Mar, [facility] [id number] [place] [address] 96655- 8520 Mar, [facility] [id number] [place] [address] 39997- 7048 Mar, Osteoarthritis of spine with radiculopathy, cervical region M47.22 [address] [facility] [address] [address] Mar, [facility] [id number] [place] [address] 42001- 2511 Feb, [facility] [id number] [place] [address] 11888- 2797 Feb, Screening breast examination Z12.31 ; Bilateral carotid artery disease I77.9 ; Low back pain M54.5 ; Osteoarthritis of spine with radiculopathy, cervical region M47.22 ; Renal insufficiency N28.9 ; Vitamin D deficiency E55.9 ; Restless leg syndrome G25.81 ; Acquired hypothyroidism E03.9 ; Coronary artery disease involving [place] coronary artery of [place] heart without angina pectoris I25.10 ; Vertigo R42 ; Essential hypertension I10 ; Type 2 diabetes mellitus with diabetic chronic kidney disease E11.22 and Encounter for immunization Z23 [facility] [id number] [place] [address] 39241- 3278 Jan, [facility] [id number] [place] [address] 38466- 4356 Jan, Type 2 diabetes mellitus without complication, without long- term current use of insulin E11.9 ; Low back pain M54.5 ; Osteoarthritis of spine with radiculopathy, cervical region M47.22 ; Renal insufficiency N28.9 ; Vitamin D deficiency E55.9 ; Restless leg syndrome G25.81 ; Bilateral carotid artery disease I77.9 ; Acquired hypothyroidism E03.9 ; Coronary artery disease involving [place] coronary artery of [place] heart without angina pectoris I25.10 and Lipoma of back D17.1 [facility] [id number] [place] [address] 54182- 9897 Jan, Type 2 diabetes mellitus without complication, without long- term current use of insulin E11.9 [facility] [address] [place] [address] 08333- 5087 Dec, Osteoarthritis of spine with radiculopathy, cervical region M47.22 [facility] [address] [place] [address] 96556- 8203 Nov, [address] [facility] [id number] [place] [address] 75510- 8828 Nov, Low back pain M54.5 and Osteoarthritis of spine with radiculopathy, cervical region M47.22 [facility] [id number] [place] [address] 44111- 4137 Nov, Osteoarthritis of spine with radiculopathy, cervical [...] hypothyroidism E03.9 ; Coronary artery disease involving [place] coronary artery of [place] heart without angina pectoris I25.10 ; Hypercalcemia E83.52 and Left foot pain M79.672 [facility] [id number] [place] [address] 80473- 1580 Oct, [facility] [id number] [place] [address] 36772- 7375 Oct, Osteoarthritis of spine with radiculopathy, cervical region M47.22 [facility] [address] [place] [address] 96746- 7230 Oct, Abnormal blood chemistry R79.9 [address] [facility] [address] [place] [address] 84064- 3506 September, Osteoarthritis of spine with radiculopathy, cervical region M47.22 ; Essential hypertension I10 ; Renal insufficiency N28.9 ; Type 2 diabetes mellitus without complication, without long-term current use of insulin E11.9 ; Vitamin D deficiency E55.9 ; Paresthesia of both hands R20.2 ; Low back pain M54.5 ; Restless leg syndrome G25.81 and Dizziness R42 [address] [facility] [address] [address] 9[address] September, [facility] [address], [place] [address] 7590 September, [facility] [address] [address] 1379 September, [facility] [id number] [place] [address] 43922- 5576 September, [facility] [address] [place] [address] 32343- 3234 Aug, [facility] [id number] [place] [address] 26395- 4406 Aug, [facility] [id number] [place] [address] 38441- 8552 Aug, [facility] [id number] [place] [address] 56429- 5166 Aug, [facility] [id number] [place] [address] 47621- 3158 Aug, Osteoarthritis of spine with radiculopathy, cervical region M47.22 [facility] [address] [address]- 8865 Aug, Essential hypertension I10 ; Renal insufficiency N28.9 ; Type 2 diabetes mellitus without complication, without long-term current use of insulin E11.9 ; Vitamin D deficiency E55.9 ; Paresthesia of both hands R20.2 ; Low back pain M54.5 ; Restless leg syndrome G25.81 ; Osteoarthritis of spine with radiculopathy, cervical region M47.22 and Dizziness R42 [facility] [address] [address]- 2889 Jul, [facility] [address], [place] [address]- 3892 Jul, [facility] [address] [place] [address] 26212- 4546 Jul, Essential hypertension I10 ; Paresthesia of both hands R20.2 ; Upper respiratory tract infection, unspecified type J06.9 and Low back pain M54.5 [facility] [address], [place] [address] 5748 15 Jul, 2016 [facility] [id number] [place] [address] 66110- 6269 Jul, [facility] [id number] [place] [address] 07364- 1330 Jul, Renal insufficiency N28.9 ; Vitamin D deficiency E55.9 ; Type 2 diabetes mellitus without complication, without long-term current use of insulin E11.9 ; Restless leg syndrome G25.81 ; Type 2 diabetes mellitus with diabetic chronic kidney disease E11.22 and Chronic kidney disease, stage 1 N18.1 [facility] [address] [place] [address] 43311- 6440 Jul, Renal insufficiency N28.9 [facility] [id number] [place] [address] 78590- 3269 Jun, [facility] [id number] [place] [address] 38331- 9426 Jun, Renal insufficiency N28.9 ; Vitamin D deficiency E55.9 ; Type 2 diabetes mellitus without complication, without long-term current use of insulin E11.9 ; Restless leg syndrome G25.81 ; Type 2 diabetes mellitus with diabetic chronic kidney disease E11.22 and Chronic kidney disease, stage 1 N18.1 [address] [facility] [address]- 0462 Jun, [facility] [id number] [place] [address] 38259- 6520 May, [address], [place] [address]- 0741 May, [facility] [address] [place] [address] 54864- 4130 May, [facility] [address] [address]- 3603 May, [facility] [address] [place] [address] 01126- 1266 May, [facility] [address] [place] [address] 62964- 9036 Apr, Acquired hypothyroidism E03.9 ; Essential hypertension I10 ; Type 2 diabetes mellitus without complication, without long-term current use of insulin E11.9 and Mixed hyperlipidemia E78.2 [address] [facility] [id number] [place] [address] 08487- 5334 Apr, Type 2 diabetes mellitus without complication, without long- term current use of insulin E11.9 ; Coronary artery disease involving [place] coronary artery of [place] heart without angina pectoris I25.10 ; Essential hypertension I10 and Acquired hypothyroidism E03.9 [facility] [address] [place] [address] 65239- 9444 Apr, Cellulitis of left lower extremity L03.116 [place] [address] [place] [address] 83594- 6302 Apr, Essential hypertension I10 ; Mixed hyperlipidemia E78.2 ; Type 2 diabetes mellitus without complication, without long-term current use of insulin E11.9 ; Acquired hypothyroidism E03.9 ; Cellulitis of left lower extremity L03.116 and Coronary artery disease involving [place] coronary artery of [place] heart without angina pectoris I25.10 [facility] [address] [address]- 5624 Apr, [facility] [address] [place] [address] 53326 -7340 Dec, Dermatitis L30.9 [facility] [address] [place] [address] 12618- 3083 Aug, [facility] [address] [place] [address] 02563- 9971 Aug, [facility] [address] [id number] [place] [address]- 3321 Jan, [facility] [place] [facility] [address] [id number] [place] [address]- 4106 Jan, [facility] [place] [facility] [address] [id number] [place] [address]- 6336 Jun, [facility] [place] [facility] [address] [id number] [place] [address]- 2517 May, [facility] [address] [id number] [place] [address]- 9752 May, [facility] [place] [facility] [address] [id number] [place] [address]- 5451 May, [facility] [address] [id number] [place] [address]- 6085 Apr, [facility] [address] [id number] [place] [address]- 1664 Feb, [facility] [address] [id number] [place] [address]- 2685 Feb, [facility] [address] [id number] [place] [address]- 0466 Nov, [facility] [place] [facility] [address] [id number] [place] [address]- 7388 Nov, [facility] [place] [facility] [address] [id number] [place] [address]- 8359 Nov, [facility] [place] [facility] [address] [id number] [place] [address]- 2647 Nov, [facility] [place] [facility] [address] [id number] [place] [address]- 3116 Nov, [facility] [place] [facility] [address] [id number] [place] [address]- 4238 Nov, [facility] [place] [facility] [address] [id number] [place] [address]- 8033 Nov, IMMUNIZATIONS No Known Immunizations SOCIAL HISTORY Never Assessed REASON FOR VISIT Controlled Med Refill PLAN OF CARE VITAL SIGNS MEDICATIONS Medication Instructions Dosage Frequency Start Date End Date Duration Status Hydrocodone-Acetaminophen 5-325 MG Orally 3 times a day 1/2-1 tablet as needed 8h May, 28 days Active RESULTS No Results PROCEDURES No Known procedures INSTRUCTIONS MEDICATIONS ADMINISTERED No Known Medications MEDICAL (GENERAL) HISTORY Type Description Date Surgical History cholecystectomy Surgical History hernia repair Surgical History carotid endarterectomy Surgical History 2 stents placed-cardiac Surgical History cataract surgery Hospitalization History black out spells Hospitalization History Surgery(s) only
--- OUTSIDE RECORDS SUMMARY | 2018-04-05 20:02 | XMS REPORT ---
Author Author SAKSHI TIDWELL [facility] Address [address] [place] [address] Care Team Providers Care Machine Precision Engraver Name Role Phone SAKSHI TIDWELL Unavailable PROBLEMS Type Condition ICD9-CM Code [id number] Code Onset Dates Condition Status SNOMED Code Problem Acquired hypothyroidism E03.9 Active 526166833 Problem Type 2 diabetes mellitus with diabetic chronic kidney disease E11.22 Active 35641369 Problem Restless leg syndrome G25.81 Active 45742102 Problem Hypercalcemia E83.52 Active 64059144 Problem Bilateral carotid artery disease I77.9 Active 290635621 Problem Low back pain M54.5 Active 458606777 Problem Chronic kidney disease, stage 1 N18.1 Active 058606578 Problem Paresthesia of both hands R20.2 Active 785832694 Problem Osteoarthritis of spine with radiculopathy, cervical region M47.22 Active 058959853 Problem Renal insufficiency N28.9 Active 043801220 Problem Coronary artery disease involving [place] coronary artery of [place] heart without angina pectoris I25.10 Active 1857011695644 Problem Essential hypertension I10 Active 52102215 Problem Vitamin D deficiency E55.9 Active 97401422 Problem Type 2 diabetes mellitus without complication, without long-term current use of insulin E11.9 Active 812575763 Problem Abnormal blood chemistry R79.9 Active 949751598 Problem Mixed hyperlipidemia E78.2 Active 428945282 ALLERGIES No Information SOCIAL HISTORY Never Assessed [...]
--- OUTSIDE RECORDS SUMMARY | 2018-04-05 20:02 | XMS REPORT ---
Author Author SAKSHI TIDWELL Organization [facility] Address [address] [place] [address] Care Team Providers Care Management Architect Name Role Phone SAKSHI TIDWELL Unavailable PROBLEMS Type Condition ICD9-CM Code PUA97-IY Code Onset Dates Condition Status SNOMED Code Problem Mixed hyperlipidemia E78.2 Active 550253482 Problem Restless leg syndrome G25.81 Active 56665831 Problem Acquired hypothyroidism E03.9 Active 596475239 Problem Hypercalcemia E83.52 Active 31589940 Problem Bilateral carotid artery disease I77.9 Active 017183401 Problem Chronic kidney disease, stage 1 N18.1 Active 322530604 Problem Type 2 diabetes mellitus with diabetic chronic kidney disease E11.22 Active 38192358 Problem Osteoarthritis of spine with radiculopathy, cervical region M47.22 Active 779540493 Problem Low back pain M54.5 Active 888671192 Problem Vitamin D deficiency E55.9 Active 50218232 Problem Coronary artery disease involving rampart coronary artery of rampart heart without angina pectoris I25.10 Active 0053944837797 Problem Essential hypertension I10 Active 96405152 Problem Renal insufficiency N28.9 Active 875486284 Problem Type 2 diabetes mellitus without complication, without long-term current use of insulin E11.9 Active 278183705 ALLERGIES No Information ENCOUNTERS Encounter Location Date Diagnosis [facility] [id number] [address] September, [facility] [id number] [place] [address] 53709- 9311 September, [facility] [id number] [place] [address] 29275- 1502 Aug, Type 2 diabetes mellitus without complication, without long- term current use of insulin E11.9 ; Essential hypertension I10 ; Acquired hypothyroidism E03.9 and Low back pain M54.5 [facility] [address] [address] Aug, [facility] [id number] [place] [address] 49717- 9669 Aug, [facility] [id number] [place] [address] 83413- 1027 Jul, [facility] [id number] [place] [address] 98704- 4350 Jul, Coronary artery disease involving rampart coronary artery of rampart heart without angina pectoris I25.10 [facility] [id number] [place] [address] 08125- 4479 Jun, Low back pain M54.5 and Essential hypertension I10 [facility] [id number] [place] [address] 23209- 5799 Jun, Head cold J00 [facility] [id number] [place] [address] 92881- 4847 May, [facility] [id number] [place] [address] 64875- 8057 Apr, Type 2 diabetes mellitus without complication, without long- term current use of insulin E11.9 [facility] [id number] [place] [address] 59115- 6156 Apr, Type 2 diabetes mellitus without complication, without long- term current use of insulin E11.9 [facility] [id number] [place] [address] 73370- 6988 Apr, Essential hypertension I10 [facility] [id number] [place] [address] 76752- 9697 Mar, [facility] [id number] [place] [address] 47333- 9060 Mar, [facility] [id number] [place] [address] 94717- 5046 Mar, Osteoarthritis of spine with radiculopathy, cervical region M47.22 [facility] [address] [address] Mar, [facility] [id number] [place] [address] 11732- 1332 Feb, [facility] [id number] [place] [address] 67265- 7336 Feb, Screening breast examination Z12.31 ; Bilateral carotid artery disease I77.9 ; Low back pain M54.5 ; Osteoarthritis of spine with radiculopathy, cervical region M47.22 ; Renal insufficiency N28.9 ; Vitamin D deficiency E55.9 ; Restless leg syndrome G25.81 ; Acquired hypothyroidism E03.9 ; Coronary artery disease involving rampart coronary artery of rampart heart without angina pectoris I25.10 ; Vertigo R42 ; Essential hypertension I10 ; Type 2 diabetes mellitus with diabetic chronic kidney disease E11.22 and Encounter for immunization Z23 [facility] [id number] [place] [address] 88437- 9842 Jan, [facility] [id number] [place] [address] 32997- 6686 Jan, Type 2 diabetes mellitus without complication, without long- term current use of insulin E11.9 ; Low back pain M54.5 ; Osteoarthritis of spine with radiculopathy, cervical region M47.22 ; Renal insufficiency N28.9 ; Vitamin D deficiency E55.9 ; Restless leg syndrome G25.81 ; Bilateral carotid artery disease I77.9 ; Acquired hypothyroidism E03.9 ; Coronary artery disease involving rampart coronary artery of rampart heart without angina pectoris I25.10 and Lipoma of back D17.1 [facility] [id number] [place] [address] 41366- 4979 Jan, Type 2 diabetes mellitus without complication, without long- term current use of insulin E11.9 [facility] [id number] [place] [address] 29392- 3565 Dec, Osteoarthritis of spine with radiculopathy, cervical region M47.22 [facility] [id number] [place] [address] 68204- 8591 Nov, [facility] [id number] [place] [address] 55063- 5757 Nov, Low back pain M54.5 and Osteoarthritis of spine with radiculopathy, cervical region M47.22 [facility] [id number] [place] [address] 17214- 2363 Nov, Osteoarthritis of spine with radiculopathy, cervical [...] hypothyroidism E03.9 ; Coronary artery disease involving rampart coronary artery of rampart heart without angina pectoris I25.10 ; Hypercalcemia E83.52 and Left foot pain M79.672 [facility] [id number] [place] [address] 86649- 6129 Oct, [facility] [id number] [place] [address] 43336- 4163 Oct, Osteoarthritis of spine with radiculopathy, cervical region M47.22 [facility] [id number] [place] [address] 67056- 3637 Oct, Abnormal blood chemistry R79.9 [facility] [id number] [place] [address] 57945- 6170 September, Osteoarthritis of spine with radiculopathy, cervical region M47.22 ; Essential hypertension I10 ; Renal insufficiency N28.9 ; Type 2 diabetes mellitus without complication, without long-term current use of insulin E11.9 ; Vitamin D deficiency E55.9 ; Paresthesia of both hands R20.2 ; Low back pain M54.5 ; Restless leg syndrome G25.81 and Dizziness R42 [facility] [address] [address] 289[address] September, [facility] [address] [address] 9856 September, [facility] [address] [address] 1844 September, [facility] [id number] [place] [address] 62908- 7803 September, [facility] [id number] [place] [address] 06711- 1864 Aug, [facility] [id number] [place] [address] 50630- 2617 Aug, [facility] [id number] [place] [address] 71494- 2297 Aug, [facility] [id number] [place] [address] 05006- 3264 Aug, [facility] [id number] [place] [address] 30073- 6767 Aug, Osteoarthritis of spine with radiculopathy, cervical region M47.22 [facility] [address] [address] 0766 Aug, Essential hypertension I10 ; Renal insufficiency N28.9 ; Type 2 diabetes mellitus without complication, without long-term current use of insulin E11.9 ; Vitamin D deficiency E55.9 ; Paresthesia of both hands R20.2 ; Low back pain M54.5 ; Restless leg syndrome G25.81 ; Osteoarthritis of spine with radiculopathy, cervical region M47.22 and Dizziness R42 [facility] [address] [address]- 4012 Jul, [facility] [address] [address]- 1320 Jul, [facility] [id number] [place] [address] 81101- 6103 Jul, Essential hypertension I10 ; Paresthesia of both hands R20.2 ; Upper respiratory tract infection, unspecified type J06.9 and Low back pain M54.5 [facility] [address] [address]- 4995 15 Jul, 2016 [facility] [id number] [place] [address] 39928- 1213 Jul, [facility] [id number] [place] [address] 41191- 7802 Jul, Renal insufficiency N28.9 ; Vitamin D deficiency E55.9 ; Type 2 diabetes mellitus without complication, without long-term current use of insulin E11.9 ; Restless leg syndrome G25.81 ; Type 2 diabetes mellitus with diabetic chronic kidney disease E11.22 and Chronic kidney disease, stage 1 N18.1 [facility] [id number] [place] [address] 99185- 9294 Jul, Renal insufficiency N28.9 [facility] [id number] [place] [address] 14207- 3986 Jun, [facility] [id number] [place] [address] 38565- 1684 Jun, Renal insufficiency N28.9 ; Vitamin D deficiency E55.9 ; Type 2 diabetes mellitus without complication, without long-term current use of insulin E11.9 ; Restless leg syndrome G25.81 ; Type 2 diabetes mellitus with diabetic chronic kidney disease E11.22 and Chronic kidney disease, stage 1 N18.1 [facility] [address] [address]- 6765 Jun, [facility] [id number] [place] [address] 78335- 5182 May, [facility] [address] [address]- 2957 May, [facility] [id number] [place] [address] 68736- 8399 May, [facility] [address] [address]- 3738 May, [facility] [id number] [place] [address] 68310- 4306 May, [facility] [id number] [place] [address] 07489- 7493 Apr, Mixed hyperlipidemia E78.2 ; Acquired hypothyroidism E03.9 ; Essential hypertension I10 and Type 2 diabetes mellitus without complication, without long-term current use of insulin E11.9 [facility] [id number] [place] [address] 99369- 0161 Apr, Type 2 diabetes mellitus without complication, without long- term current use of insulin E11.9 ; Coronary artery disease involving rampart coronary artery of rampart heart without angina pectoris I25.10 ; Essential hypertension I10 and Acquired hypothyroidism E03.9 [facility] [address] [place] [address] 51327- 8414 Apr, Cellulitis of left lower extremity L03.116 [facility] [address] [place] [address] 97007- 2484 Apr, Essential hypertension I10 ; Mixed hyperlipidemia E78.2 ; Type 2 diabetes mellitus without complication, without long-term current use of insulin E11.9 ; Acquired hypothyroidism E03.9 ; Cellulitis of left lower extremity L03.116 and Coronary artery disease involving rampart coronary artery of rampart heart without angina pectoris I25.10 [facility] [address] [address]- 7015 14 Apr, 2016 [facility] [id number] [place] [address] 93988 -3606 Dec, Dermatitis L30.9 [facility] [id number] [place] [address] 23345- 5779 Aug, [facility] [id number] [place] [address] 18646- 9405 Aug, [facility] [address] [id number] [place] [address]- 8812 Jan, [facility] [place] [facility] [address] [id number] [place] [address]- 9176 Jan, [facility] [place] [facility] [address] [id number] [place] [address]- 9556 Jun, [facility] [place] [facility] [address] [id number] [place] [address]- 9384 May, [facility] [address] [id number] [place] [address]- 4909 May, [facility] [place] [facility] [address] [id number] [place] [address]- 7896 May, [facility] [address] [id number] [place] [address]- 2461 Apr, [facility] [address] [id number] [place] [address]- 2375 Feb, [facility] [address] [id number] [place] [address]- 9237 Feb, [facility] [address] [id number] [place] [address]- 9584 Nov, [facility] [place] [facility] [address] [id number] [place] [address]- 9869 Nov, [facility] [place] [facility] [address] [id number] [place] [address]- 1408 Nov, [facility] [place] [facility] [address] [id number] [place] [address]- 1622 Nov, [facility] [place] [facility] [address] [id number] [place] [address]- 1023 Nov, [facility] [place] [facility] [address] [id number] [place] [address]- 1880 Nov, [facility] [place] [facility] [address] [id number] [place] [address]- 5196 Nov, IMMUNIZATIONS No Known Immunizations SOCIAL HISTORY Never Assessed REASON FOR VISIT Lancets PLAN OF CARE VITAL SIGNS MEDICATIONS Medication Instructions Dosage Frequency Start Date End Date Duration Status Lancets 30G - as directed Apr, Active RESULTS No Results PROCEDURES No Known procedures INSTRUCTIONS MEDICATIONS ADMINISTERED No Known Medications MEDICAL (GENERAL) HISTORY Type Description Date Surgical History cholecystectomy Surgical History hernia repair Surgical History carotid endarterectomy Surgical History 2 stents placed-cardiac Surgical History cataract surgery Hospitalization History black out spells Hospitalization History Surgery(s) only
--- OUTSIDE RECORDS SUMMARY | 2018-04-05 20:02 | XMS REPORT ---
Author Author SAKSHI TIDWELL [facility] Address [address] [place] [address] Care Team Providers Care Stock Blender Name Role Phone SAKSHI TIDWELL Unavailable PROBLEMS Type Condition ICD9-CM Code CNB68-IN Code Onset Dates Condition Status SNOMED Code Problem Acquired hypothyroidism E03.9 Active 455768152 Problem Type 2 diabetes mellitus with diabetic chronic kidney disease E11.22 Active 82528048 Problem Restless leg syndrome G25.81 Active 97687926 Problem Hypercalcemia E83.52 Active 71630719 Problem Bilateral carotid artery disease I77.9 Active 756028343 Problem Low back pain M54.5 Active 075763128 Problem Chronic kidney disease, stage 1 N18.1 Active 998925882 Problem Paresthesia of both hands R20.2 Active 973945083 Problem Osteoarthritis of spine with radiculopathy, cervical region M47.22 Active 702838879 Problem Renal insufficiency N28.9 Active 345073439 Problem Coronary artery disease involving [place] coronary artery of [place] heart without angina pectoris I25.10 Active 1000260307485 Problem Essential hypertension I10 Active 43785290 Problem Vitamin D deficiency E55.9 Active 68375130 Problem Type 2 diabetes mellitus without complication, without long-term current use of insulin E11.9 Active 906208161 Problem Abnormal blood chemistry R79.9 Active 315696799 Problem Mixed hyperlipidemia E78.2 Active 230513826 ALLERGIES Substance Reaction Event Type Date Status Bydureon leg irritation with knot at inj site Drug Allergy Jul, Active Bactrim DS Unknown Drug Allergy Jul, Active SOCIAL HISTORY Never Assessed PLAN OF CARE Activity Details Follow Up reg fu scheduled 08/15 Reason: VITAL SIGNS Height 64.5 in 2016-08-01 Weight 198.0 lbs 2016-08-01 Temperature 98.8 degrees Fahrenheit 2016-08-01 Heart Rate 68 bpm 2016-08-01 Respiratory Rate 20 2016-08-01 BMI 33.46 kg/m2 2016-08-01 Blood pressure systolic 140 mmHg 2016-08-01 Blood pressure diastolic 70 mmHg 2016-08-01 MEDICATIONS Medication Instructions Dosage Frequency Start Date End Date Duration Status ProAir HFA 108 (90 Base) MCG/ACT Inhalation 3 times a day 2 puffs as needed 8h Jul, 10 days Active Rosuvastatin Calcium 20 MG Orally Once a day 1 tablet 24h Active Potassium Chloride ER 10 MEQ Orally Once a day 1 capsule with food 24h 30 Active Lisinopril 10 MG Orally Once a day 1 tablet 24h 90 Active Metoprolol Tartrate 25 MG Orally Once a day 1/2 tablet 24h 30 Active Vitamin B-12 50 MCG Active Tessalon Perles 100 mg Orally Three times a day 1 capsule as needed 8h Jul, Aug, 07 days Active Gabapentin 100 mg Orally three times a day prn 1 capsule Jul, 15 days Active Isosorbide Mononitrate 60 mg Orally Once a day 1 tablet 24h Active Cholecalciferol 3000 UNIT Orally [place] [address] unit rx 1 tablet Active Fenofibric Acid 135 MG Orally Once a day 1 capsule 24h Active True Metrix Blood Glucose Test - In Vitro Once a day as directed 24h Jul Active Requip 0.5 MG Orally Once a day 1 tablet 1 to 3 hours before bedtime 24h Jul, 30 day(s) Active Trulicity 0.75 MG/0.5ML Subcutaneous once weekly 0.5 ml Active Hydrochlorothiazide 25 MG Orally every other day /2 tablet Active Clopidogrel Bisulfate 75 MG Orally Once a day 1 tablet 24h Active TRUEplus Lancets 30G - as directed 24h Jul, Active Levothyroxine Sodium 75 MCG Orally Once a day 1 tablet on an empty stomach in the morning 24h 90 Active PredniSONE 20 mg Orally Once a day 1 tablet 24h Jul, Jul, 05 days Active Cholecalciferol 83086 UNIT Orally once weekly for 12 weeks 1 tablet Active Fish Oil 1000 MG Orally twice a day 1 capsule 12h Active Augmentin 875-125 MG Orally every 12 hrs 1 tablet 12h Jul, Aug, 10 day(s) Active Aspirin 325 MG Orally Once a day 1 tablet 24h Active Zofran 8 MG Orally 3 times a day 1 tablet 8h Jul, Active RESULTS Name Result Date Reference Range Xray : Spine, Lumbar 2-3 views (IN HOUSE) 2016-08-01 PROCEDURES Procedure Date Ordered Result Body Site X-RAY EXAM OF LOWER SPINE August 01, 2016 IMMUNIZATIONS No Known Immunizations MEDICAL (GENERAL) [...]
--- OUTSIDE RECORDS SUMMARY | 2018-04-05 20:03 | XMS REPORT ---
Author Author SAKSHI TIDWELL Organization [facility] Address [address] [place] [address] Care Team Providers Care Inside Sales Consultant Name Role Phone SAKSHI TIDWELL Unavailable PROBLEMS Type Condition ICD9-CM Code JPX46-HW Code Onset Dates Condition Status SNOMED Code Problem Mixed hyperlipidemia E78.2 Active 024050442 Problem Restless leg syndrome G25.81 Active 12336259 Problem Acquired hypothyroidism E03.9 Active 340803288 Problem Hypercalcemia E83.52 Active 04271715 Problem Bilateral carotid artery disease I77.9 Active 664768188 Problem Chronic kidney disease, stage 1 N18.1 Active 540105259 Problem Type 2 diabetes mellitus with diabetic chronic kidney disease E11.22 Active 16023805 Problem Osteoarthritis of spine with radiculopathy, cervical region M47.22 Active 455924477 Problem Low back pain M54.5 Active 128199282 Problem Vitamin D deficiency E55.9 Active 91229884 Problem Coronary artery disease involving [place] coronary artery of [place] heart without angina pectoris I25.10 Active 4930994778906 Problem Essential hypertension I10 Active 74783752 Problem Renal insufficiency N28.9 Active 243933295 Problem Type 2 diabetes mellitus without complication, without long-term current use of insulin E11.9 Active 234142276 ALLERGIES No Information ENCOUNTERS Encounter Location Date Diagnosis [facility] [id number], [place] [address] September, [facility] [id number] [place] [address] 71326- 3339 September, [facility] [address] [place] [address] 97438- 5854 Aug, Type 2 diabetes mellitus without complication, without long- term current use of insulin E11.9 ; Essential hypertension I10 ; Acquired hypothyroidism E03.9 and Low back pain M54.5 [facility] [address] [address] Aug, [facility] [id number] [place] [address] 99608- 4706 Aug, [facility] [id number] [place] [address] 04912- 0654 Jul, [facility] [id number] [place] [address] 54483- 6402 Jul, Coronary artery disease involving [place] coronary artery of [place] heart without angina pectoris I25.10 [facility] [id number] [place] [address] 85029- 0295 Jun, Low back pain M54.5 and Essential hypertension I10 [facility] [id number] [place] [address] 21524- 4159 Jun, Head cold J00 [facility] [id number] [place] [address] 87990- 7233 May, [facility] [id number] [place] [address] 16776- 9959 Apr, Type 2 diabetes mellitus without complication, without long- term current use of insulin E11.9 [facility] [id number] [place] [address] 36800- 8716 Apr, Type 2 diabetes mellitus without complication, without long- term current use of insulin E11.9 [facility] [address] [place] [address] 81311- 5688 Apr, Essential hypertension I10 [facility] [id number] [place] [address] 47230- 3347 Mar, [facility] [id number] [place] [address] 95656- 7170 Mar, [facility] [id number] [place] [address] 51776- 7631 Mar, Osteoarthritis of spine with radiculopathy, cervical region M47.22 [facility] [facility] [address] [address] Mar, [facility] [id number] [place] [address] 55882- 2388 Feb, [facility] [id number] [place] [address] 65930- 9217 Feb, Screening breast examination Z12.31 ; Bilateral carotid artery disease I77.9 ; Low back pain M54.5 ; Osteoarthritis of spine with radiculopathy, cervical region M47.22 ; Renal insufficiency N28.9 ; Vitamin D deficiency E55.9 ; Restless leg syndrome G25.81 ; Acquired hypothyroidism E03.9 ; Coronary artery disease involving [place] coronary artery of [place] heart without angina pectoris I25.10 ; Vertigo R42 ; Essential hypertension I10 ; Type 2 diabetes mellitus with diabetic chronic kidney disease E11.22 and Encounter for immunization Z23 [facility] [id number] [place] [address] 83084- 6237 Jan, [facility] [id number] [place] [address] 98718- 7828 Jan, Type 2 diabetes mellitus without complication, without long- term current use of insulin E11.9 ; Low back pain M54.5 ; Osteoarthritis of spine with radiculopathy, cervical region M47.22 ; Renal insufficiency N28.9 ; Vitamin D deficiency E55.9 ; Restless leg syndrome G25.81 ; Bilateral carotid artery disease I77.9 ; Acquired hypothyroidism E03.9 ; Coronary artery disease involving [place] coronary artery of [place] heart without angina pectoris I25.10 and Lipoma of back D17.1 [facility] [id number] [place] [address] 17919- 2777 Jan, Type 2 diabetes mellitus without complication, without long- term current use of insulin E11.9 [facility] [address] [place] [address] 52355- 4740 Dec, Osteoarthritis of spine with radiculopathy, cervical region M47.22 [facility] [address] [place] [address] 81205- 2598 Nov, [facility] [id number] [place] [address] 01974- 3194 Nov, Low back pain M54.5 and Osteoarthritis of spine with radiculopathy, cervical region M47.22 [facility] [id number] [place] [address] 16654- 6350 Nov, Osteoarthritis of spine with radiculopathy, cervical [...] hypothyroidism E03.9 ; Coronary artery disease involving [place] coronary artery of [place] heart without angina pectoris I25.10 ; Hypercalcemia E83.52 and Left foot pain M79.672 [facility] [id number] [place] [address] 37322- 8838 Oct, [facility] [id number] [place] [address] 87152- 6837 Oct, Osteoarthritis of spine with radiculopathy, cervical region M47.22 [facility] [facility] [address] [place] [address] 27072- 4483 Oct, Abnormal blood chemistry R79.9 [facility] [facility] [address] [place] [address] 05723- 0701 September, Osteoarthritis of spine with radiculopathy, cervical region M47.22 ; Essential hypertension I10 ; Renal insufficiency N28.9 ; Type 2 diabetes mellitus without complication, without long-term current use of insulin E11.9 ; Vitamin D deficiency E55.9 ; Paresthesia of both hands R20.2 ; Low back pain M54.5 ; Restless leg syndrome G25.81 and Dizziness R42 [facility] [address] [address] 8489 September, [facility] [address], [place] [address] 4878 September, [facility] [address], [place] [address] 7367 September, [facility] [id number] [place] [address] 38796- 7127 September, [facility] [id number] [place] [address] 27971- 0683 Aug, [facility] [id number] [place] [address] 02141- 9888 Aug, [facility] [id number] [place] [address] 46903- 6761 Aug, [facility] [id number] [place] [address] 48351- 0265 Aug, [facility] [id number] [place] [address] 42968- 6487 Aug, Osteoarthritis of spine with radiculopathy, cervical region M47.22 [facility] [address], [place] [address] 3098 Aug, Essential hypertension I10 ; Renal insufficiency N28.9 ; Type 2 diabetes mellitus without complication, without long-term current use of insulin E11.9 ; Vitamin D deficiency E55.9 ; Paresthesia of both hands R20.2 ; Low back pain M54.5 ; Restless leg syndrome G25.81 ; Osteoarthritis of spine with radiculopathy, cervical region M47.22 and Dizziness R42 [facility] [address], [place] [address]- 3290 Jul, [facility] [address], [place] [address]- 1459 Jul, [facility] [id number] [place] [address] 43122- 8060 Jul, Essential hypertension I10 ; Paresthesia of both hands R20.2 ; Upper respiratory tract infection, unspecified type J06.9 and Low back pain M54.5 [facility] [address], [place] [address]- 9333 15 Jul, 2016 [facility] [id number] [place] [address] 00661- 8888 Jul, [facility] [id number] [place] [address] 64631- 9023 Jul, Renal insufficiency N28.9 ; Vitamin D deficiency E55.9 ; Type 2 diabetes mellitus without complication, without long-term current use of insulin E11.9 ; Restless leg syndrome G25.81 ; Type 2 diabetes mellitus with diabetic chronic kidney disease E11.22 and Chronic kidney disease, stage 1 N18.1 [facility] [id number] [place] [address] 78636- 9935 Jul, Renal insufficiency N28.9 [facility] [id number] [place] [address] 65538- 0484 Jun, [facility] [id number] [place] [address] 03396- 7864 Jun, Renal insufficiency N28.9 ; Vitamin D deficiency E55.9 ; Type 2 diabetes mellitus without complication, without long-term current use of insulin E11.9 ; Restless leg syndrome G25.81 ; Type 2 diabetes mellitus with diabetic chronic kidney disease E11.22 and Chronic kidney disease, stage 1 N18.1 [facility] [facility] [address], [place] [address]- 4052 Jun, [facility] [id number] [place] [address] 11483- 7684 May, [facility] [facility] [address] [address]- 5789 May, [facility] [address] [place] [address] 60254- 3632 May, [facility] [address], [place] [address]- 7964 May, [facility] [id number] [place] [address] 04470- 5318 May, [facility] [id number] [place] [address] 13881- 7848 Apr, Acquired hypothyroidism E03.9 ; Essential hypertension I10 ; Type 2 diabetes mellitus without complication, without long-term current use of insulin E11.9 and Mixed hyperlipidemia E78.2 [facility] [id number] [place] [address] 08034- 3532 Apr, Type 2 diabetes mellitus without complication, without long- term current use of insulin E11.9 ; Coronary artery disease involving [place] coronary artery of [place] heart without angina pectoris I25.10 ; Essential hypertension I10 and Acquired hypothyroidism E03.9 [facility] [id number] [place] [address] 78278- 0164 Apr, Cellulitis of left lower extremity L03.116 [facility] [facility] [address] [place] [address] 70525- 0977 Apr, Essential hypertension I10 ; Mixed hyperlipidemia E78.2 ; Type 2 diabetes mellitus without complication, without long-term current use of insulin E11.9 ; Acquired hypothyroidism E03.9 ; Cellulitis of left lower extremity L03.116 and Coronary artery disease involving [place] coronary artery of [place] heart without angina pectoris I25.10 [facility] [address] [address]- 0225 Apr, [facility] [id number] [place] [address] 46527 -4414 Dec, Dermatitis L30.9 [facility] [id number] [place] [address] 06558- 5068 Aug, [facility] [id number] [place] [address] 18767- 1571 Aug, [facility] [address] [id number] [place] [address]- 7882 Jan, [facility] [place] [facility] [address] [id number] [place] [address]- 7336 Jan, [facility] [place] [facility] [address] [id number] [place] [address]- 1356 Jun, [facility] [place] [facility] [address] [id number] [place] [address]- 4215 May, [facility] [address] [id number] [place] [address]- 6290 May, [facility] [place] [facility] [address] [id number] [place] [address]- 1522 May, [facility] [address] [id number] [place] [address]- 9182 Apr, [facility] [address] [id number] [place] [address]- 5042 Feb, [facility] [address] [id number] [place] [address]- 9376 Feb, [facility] [address] [id number] [place] [address]- 2453 Nov, [facility] [place] [facility] [address] [id number] [place] [address]- 6961 Nov, [facility] [place] [facility] [address] [id number] [place] [address]- 7870 Nov, [facility] [place] [facility] [address] [id number] [place] [address]- 7453 Nov, [facility] [place] [facility] [address] [id number] [place] [address]- 6133 Nov, [facility] [place] [facility] [address] [id number] [place] [address]- 3781 Nov, [facility] [place] [facility] [address] [id number] [place] [address]- 8456 Nov, IMMUNIZATIONS No Known Immunizations SOCIAL HISTORY Never Assessed REASON FOR VISIT PA for [facility] PLAN OF CARE VITAL SIGNS MEDICATIONS Unknown Medications RESULTS No Results PROCEDURES No Known procedures INSTRUCTIONS MEDICATIONS ADMINISTERED No Known Medications MEDICAL (GENERAL) HISTORY Type Description Date Surgical History cholecystectomy Surgical History hernia repair Surgical History carotid endarterectomy Surgical History 2 stents placed-cardiac Surgical History cataract surgery Hospitalization History black out spells Hospitalization History Surgery(s) only
--- OUTSIDE RECORDS SUMMARY | 2018-04-05 20:03 | XMS REPORT ---
Author Author SAKSHI TIDWELL [facility] Address [address] [place] [address] Care Team Providers Care Beveller Operator Name Role Phone SAKSHI TIDWELL Unavailable PROBLEMS Type Condition ICD9-CM Code [id number] Code Onset Dates Condition Status SNOMED Code Problem Acquired hypothyroidism E03.9 Active 439432001 Problem Type 2 diabetes mellitus with diabetic chronic kidney disease E11.22 Active 92977965 Problem Restless leg syndrome G25.81 Active 93252592 Problem Hypercalcemia E83.52 Active 30879268 Problem Bilateral carotid artery disease I77.9 Active 175046327 Problem Low back pain M54.5 Active 404051390 Problem Chronic kidney disease, stage 1 N18.1 Active 569008220 Problem Paresthesia of both hands R20.2 Active 879879895 Problem Osteoarthritis of spine with radiculopathy, cervical region M47.22 Active 799887535 Problem Renal insufficiency N28.9 Active 021252532 Problem Coronary artery disease involving [place] coronary artery of [place] heart without angina pectoris I25.10 Active 8359266493597 Problem Essential hypertension I10 Active 83218229 Problem Vitamin D deficiency E55.9 Active 42789171 Problem Type 2 diabetes mellitus without complication, without long-term current use of insulin E11.9 Active 907587492 Problem Abnormal blood chemistry R79.9 Active 566735060 Problem Mixed hyperlipidemia E78.2 Active 621363609 ALLERGIES Unknown Allergies SOCIAL HISTORY No smoking Hx information available PLAN OF CARE VITAL SIGNS MEDICATIONS Unknown Medications RESULTS No Results PROCEDURES No Known procedures IMMUNIZATIONS No Known Immunizations
--- OUTSIDE RECORDS SUMMARY | 2018-04-05 20:03 | XMS REPORT ---
Author Author SAKSHI TIDWELL [facility] Address [address] [place] [address] Care Team Providers Care Battery Checker Name Role Phone SAKSHI TIDWELL Unavailable PROBLEMS Type Condition ICD9-CM Code SFS68-UQ Code Onset Dates Condition Status SNOMED Code Problem Acquired hypothyroidism E03.9 Active 589137246 Problem Type 2 diabetes mellitus with diabetic chronic kidney disease E11.22 Active 40757867 Problem Restless leg syndrome G25.81 Active 08890439 Problem Hypercalcemia E83.52 Active 35924793 Problem Bilateral carotid artery disease I77.9 Active 029653068 Problem Low back pain M54.5 Active 315217352 Problem Chronic kidney disease, stage 1 N18.1 Active 733172106 Problem Paresthesia of both hands R20.2 Active 255369410 Problem Osteoarthritis of spine with radiculopathy, cervical region M47.22 Active 434861702 Problem Renal insufficiency N28.9 Active 267292151 Problem Coronary artery disease involving [place] coronary artery of [place] heart without angina pectoris I25.10 Active 4725076131876 Problem Essential hypertension I10 Active 11299233 Problem Vitamin D deficiency E55.9 Active 22844701 Problem Type 2 diabetes mellitus without complication, without long-term current use of insulin E11.9 Active 311535075 Problem Abnormal blood chemistry R79.9 Active 826511249 Problem Mixed hyperlipidemia E78.2 Active 886645137 ALLERGIES No Information SOCIAL HISTORY Never Assessed PLAN OF CARE VITAL SIGNS MEDICATIONS Medication Instructions Dosage Frequency Start Date End Date Duration Status Zofran 8 MG Orally 3 times a day 1 tablet 8h Jul, Active RESULTS No Results PROCEDURES No Known [...]
--- OUTSIDE RECORDS SUMMARY | 2018-04-05 20:03 | XMS REPORT ---
Author Author SAKSHI TIDWELL [facility] Address [address] [place] [address] Care Team Providers Care Glost Tile Shader Name Role Phone SAKSHI TIDWELL Unavailable PROBLEMS Type Condition ICD9-CM Code [id number] Code Onset Dates Condition Status SNOMED Code Problem Acquired hypothyroidism E03.9 Active 440810592 Problem Type 2 diabetes mellitus with diabetic chronic kidney disease E11.22 Active 50271249 Problem Restless leg syndrome G25.81 Active 27807821 Problem Hypercalcemia E83.52 Active 77323853 Problem Bilateral carotid artery disease I77.9 Active 487605032 Problem Low back pain M54.5 Active 942018223 Problem Chronic kidney disease, stage 1 N18.1 Active 591189014 Problem Paresthesia of both hands R20.2 Active 388705421 Problem Osteoarthritis of spine with radiculopathy, cervical region M47.22 Active 969992750 Problem Renal insufficiency N28.9 Active 280813397 Problem Coronary artery disease involving [place] coronary artery of [place] heart without angina pectoris I25.10 Active 3791202171006 Problem Essential hypertension I10 Active 79532567 Problem Vitamin D deficiency E55.9 Active 84965680 Problem Type 2 diabetes mellitus without complication, without long-term current use of insulin E11.9 Active 943991774 Problem Abnormal blood chemistry R79.9 Active 185343296 Problem Mixed hyperlipidemia E78.2 Active 927822350 ALLERGIES Unknown Allergies SOCIAL HISTORY No smoking Hx information available PLAN OF CARE VITAL SIGNS MEDICATIONS Medication Instructions Dosage Frequency Start Date End Date Duration Status Bydureon 2 MG Subcutaneous once weekly 2 mg May, Active RESULTS No Results PROCEDURES No Known procedures IMMUNIZATIONS No Known Immunizations
--- OUTSIDE RECORDS SUMMARY | 2018-04-05 20:03 | XMS REPORT ---
Author Author SAKSHI TIDWELL [facility] Address [address] [place] [address] Care Team Providers Care Med Surg Nurse Name Role Phone SAKSHI TIDWELL Unavailable PROBLEMS Type Condition ICD9-CM Code IGB01-ZG Code Onset Dates Condition Status SNOMED Code Problem Acquired hypothyroidism E03.9 Active 940611113 Problem Type 2 diabetes mellitus with diabetic chronic kidney disease E11.22 Active 68488364 Problem Restless leg syndrome G25.81 Active 91386702 Problem Hypercalcemia E83.52 Active 02002563 Problem Bilateral carotid artery disease I77.9 Active 472861430 Problem Low back pain M54.5 Active 829955971 Problem Chronic kidney disease, stage 1 N18.1 Active 118072448 Problem Paresthesia of both hands R20.2 Active 664367362 Problem Osteoarthritis of spine with radiculopathy, cervical region M47.22 Active 921902544 Problem Renal insufficiency N28.9 Active 141389482 Problem Coronary artery disease involving [place] coronary artery of [place] heart without angina pectoris I25.10 Active 4016021097852 Problem Essential hypertension I10 Active 29926011 Problem Vitamin D deficiency E55.9 Active 96091309 Problem Type 2 diabetes mellitus without complication, without long-term current use of insulin E11.9 Active 430814805 Problem Abnormal blood chemistry R79.9 Active 663564030 Problem Mixed hyperlipidemia E78.2 Active 672127111 ALLERGIES No Information SOCIAL HISTORY Never Assessed [...]
--- OUTSIDE RECORDS SUMMARY | 2018-04-05 20:03 | XMS REPORT ---
Author Author SAKSHI TIDWELL [facility] Address [address] [place] [address] Care Team Providers Care Head Of Mathematics Name Role Phone SAKSHI TIDWELL Unavailable PROBLEMS Type Condition ICD9-CM Code MRQ85-EX Code Onset Dates Condition Status SNOMED Code Problem Acquired hypothyroidism E03.9 Active 172918716 Problem Type 2 diabetes mellitus with diabetic chronic kidney disease E11.22 Active 46061958 Problem Restless leg syndrome G25.81 Active 04367249 Problem Hypercalcemia E83.52 Active 16382109 Problem Bilateral carotid artery disease I77.9 Active 656699139 Problem Low back pain M54.5 Active 497003272 Problem Chronic kidney disease, stage 1 N18.1 Active 293920094 Problem Paresthesia of both hands R20.2 Active 807382666 Problem Osteoarthritis of spine with radiculopathy, cervical region M47.22 Active 008801252 Problem Renal insufficiency N28.9 Active 238314705 Problem Coronary artery disease involving [place] coronary artery of [place] heart without angina pectoris I25.10 Active 0609072610069 Problem Essential hypertension I10 Active 69847344 Problem Vitamin D deficiency E55.9 Active 58698343 Problem Type 2 diabetes mellitus without complication, without long-term current use of insulin E11.9 Active 480559491 Problem Abnormal blood chemistry R79.9 Active 787663308 Problem Mixed hyperlipidemia E78.2 Active 589923534 ALLERGIES No Information SOCIAL HISTORY Never Assessed PLAN OF CARE VITAL SIGNS MEDICATIONS Unknown Medications RESULTS Name Result Date Reference Range [facility] 2016-07-17 Glucose, Serum 93 65-99 BUN 12 8-27 Creatinine, Serum 0.92 0.57-1.00 eGFR If NonAfricn Am 67 >59 eGFR If Africn Am 77 >59 BUN/Creatinine Ratio 13 11-26 Sodium, Serum 143 134-144 Potassium, Serum 4.0 3.5-5.2 Chloride, Serum 99 96-106 Carbon Dioxide, Total 30 18-29 Calcium, Serum 9.7 8.7-10.3 Protein, Total, Serum 6.8 6.0-8.5 Albumin, Serum 4.4 3.6-4.8 Globulin, Total 2.4 1.5-4.5 A/G Ratio 1.8 1.1-2.5 Bilirubin, Total 0.3 0.0-1.2 Alkaline Phosphatase, S 51 39-117 AST (SGOT) 15 0-40 ALT (SGPT) 13 0-32 PROCEDURES Procedure Date Ordered Result Body Site COMPREHEN METABOLIC PANEL July 17, 2016 VENIPUNCT, ROUTINE* July 17, 2016 IMMUNIZATIONS No Known Immunizations MEDICAL (GENERAL) [...]
--- OUTSIDE RECORDS SUMMARY | 2018-04-05 20:03 | XMS REPORT ---
Author Author SAKSHI TIDWELL [facility] Address [address] [place] [address] Care Team Providers Care It Architecture Analyst Name Role Phone SAKSHI TIDWELL Unavailable PROBLEMS Type Condition ICD9-CM Code OSU33-VB Code Onset Dates Condition Status SNOMED Code Problem Restless leg syndrome G25.81 Active 36845464 Problem Chronic kidney disease, stage 1 N18.1 Active 156647207 Problem Type 2 diabetes mellitus with diabetic chronic kidney disease E11.22 Active 38842975 Problem Vertigo R42 Active 719811040 Problem Bilateral carotid artery disease I77.9 Active 602544119 Problem Osteoarthritis of spine with radiculopathy, cervical region M47.22 Active 531189923 Problem Low back pain M54.5 Active 374736657 Problem Hypercalcemia E83.52 Active 81036771 Problem Paresthesia of both hands R20.2 Active 664825651 Problem Renal insufficiency N28.9 Active 251606552 Problem Vitamin D deficiency E55.9 Active 87748179 Problem Essential hypertension I10 Active 43490660 Problem Type 2 diabetes mellitus without complication, without long-term current use of insulin E11.9 Active 164332094 Problem Abnormal blood chemistry R79.9 Active 800262425 Problem Mixed hyperlipidemia E78.2 Active 020078873 Problem Coronary artery disease involving [place] coronary artery of [place] heart without angina pectoris I25.10 Active 5873777390734 Problem Acquired hypothyroidism E03.9 Active 897752487 ALLERGIES No Information SOCIAL HISTORY Never Assessed PLAN OF CARE VITAL SIGNS MEDICATIONS Medication Instructions Dosage Frequency Start Date End Date Duration Status Potassium Chloride Corie ER 10 MEQ TAKE ONE TABLET BY MOUTH ONCE DAILY WITH FOOD 30 Active RESULTS No Results PROCEDURES No Known [...]
--- OUTSIDE RECORDS SUMMARY | 2018-04-05 20:03 | XMS REPORT ---
Author Author SAKSHI TIDWELL [facility] Address [address] [place] [address] Care Team Providers Care Picture Framer Name Role Phone SAKSHI TIDWELL Unavailable PROBLEMS Type Condition ICD9-CM Code IOP86-KI Code Onset Dates Condition Status SNOMED Code Problem Essential hypertension I10 Active 63638232 Problem Type 2 diabetes mellitus with diabetic chronic kidney disease E11.22 Active 47231802 Problem Chronic kidney disease, stage 1 N18.1 Active 251041363 Problem Bilateral carotid artery disease I77.9 Active 301200782 Problem Hypercalcemia E83.52 Active 59384771 Problem Low back pain M54.5 Active 829294549 Problem Restless leg syndrome G25.81 Active 20062380 Problem Paresthesia of both hands R20.2 Active 478913070 Problem Osteoarthritis of spine with radiculopathy, cervical region M47.22 Active 196608090 Problem Abnormal blood chemistry R79.9 Active 480551352 Problem Coronary artery disease involving [place] coronary artery of [place] heart without angina pectoris I25.10 Active 2147536235111 Problem Acquired hypothyroidism E03.9 Active 916263174 Problem Vitamin D deficiency E55.9 Active 04259080 Problem Type 2 diabetes mellitus without complication, without long-term current use of insulin E11.9 Active 655645871 Problem Renal insufficiency N28.9 Active 584564593 Problem Mixed hyperlipidemia E78.2 Active 600443362 ALLERGIES Substance Reaction Event Type Date Status N.K.D.A. Unknown Non Drug Allergy Apr, Unknown SOCIAL HISTORY No smoking Hx information available PLAN OF CARE Activity Details Follow Up 2-3 weeks Reason:Review lab VITAL SIGNS Height 64.5 in 2016-05-01 Weight 197.7 lbs 2016-05-01 Temperature 98.1 degrees Fahrenheit 2016-05-01 Heart Rate 68 bpm 2016-05-01 Respiratory Rate 18 2016-05-01 BMI 33.41 kg/m2 2016-05-01 Blood pressure systolic 146 mmHg 2016-05-01 Blood pressure diastolic 78 mmHg 2016-05-01 MEDICATIONS Medication Instructions Dosage Frequency Start Date End Date Duration Status Potassium Chloride ER 10 MEQ Orally Once a day 1 capsule with food 24h Active Metoprolol Tartrate 25 MG Orally Once a day 1/2 tablet 24h Active Clopidogrel Bisulfate 75 MG Orally Once a day 1 tablet 24h Active Lisinopril 10 MG Orally Once a day 1 tablet 24h Active Aspirin 325 MG Orally Once a day 1 tablet 24h Active Fenofibric Acid 135 MG Orally Once a day 1 capsule 24h Active Bactrim DS 800-160 MG Orally Twice a day 1 tablet 12h Apr,Apr 10 day(s) Active Levothyroxine Sodium 75 MCG Orally Once a day 1 tablet on an empty stomach in the morning 24h Active Rosuvastatin Calcium 20 MG Orally Once a day 1 tablet 24h Active Fish Oil 1000 MG Orally twice a day 1 capsule 12h Active Metformin HCl 500 MG Orally Once a day 1 tablet with meals 24h Active Hydrochlorothiazide 25 MG Orally Once a day 1 tablet 24h Active Isosorbide Mononitrate 60 mg Orally Once a day 1 tablet 24h Active Vitamin B-12 50 MCG Active Clobetasol Propionate 0.05 % Externally Twice a day 1 application to affected area 12h Apr, Apr, 10 day(s) Active RESULTS No Results PROCEDURES Procedure Date Ordered Related Diagnosis Body Site Office Visit, Est Pt., Level 5 May 01, 2016 IMMUNIZATIONS No Known Immunizations
--- OUTSIDE RECORDS SUMMARY | 2018-04-05 20:03 | XMS REPORT ---
Author Author SAKSHI TIDWELL [facility] Address [address] [place] [address] Care Team Providers Care Assembly Manager Name Role Phone SAKSHI TIDWELL Unavailable PROBLEMS Type Condition ICD9-CM Code ATH26-MI Code Onset Dates Condition Status SNOMED Code Problem Acquired hypothyroidism E03.9 Active 824281117 Problem Type 2 diabetes mellitus with diabetic chronic kidney disease E11.22 Active 56409663 Problem Restless leg syndrome G25.81 Active 27227867 Problem Hypercalcemia E83.52 Active 33568607 Problem Bilateral carotid artery disease I77.9 Active 306246000 Problem Low back pain M54.5 Active 560987562 Problem Chronic kidney disease, stage 1 N18.1 Active 484673218 Problem Paresthesia of both hands R20.2 Active 757331535 Problem Osteoarthritis of spine with radiculopathy, cervical region M47.22 Active 487302338 Problem Renal insufficiency N28.9 Active 963371513 Problem Coronary artery disease involving [place] coronary artery of [place] heart without angina pectoris I25.10 Active 4252751593875 Problem Essential hypertension I10 Active 63914613 Problem Vitamin D deficiency E55.9 Active 49603080 Problem Type 2 diabetes mellitus without complication, without long-term current use of insulin E11.9 Active 192550013 Problem Abnormal blood chemistry R79.9 Active 653603876 Problem Mixed hyperlipidemia E78.2 Active 207778576 ALLERGIES No Information SOCIAL HISTORY Never Assessed [...]
--- OUTSIDE RECORDS SUMMARY | 2018-04-05 20:04 | XMS REPORT ---
Author Author SAKSHI TIDWELL Organization [facility] Address [address] [place] [address] Care Team Providers Care Facilities Manager Name Role Phone SAKSHI TIDWELL Unavailable PROBLEMS Type Condition ICD9-CM Code WDG37-YM Code Onset Dates Condition Status SNOMED Code Problem Mixed hyperlipidemia E78.2 Active 478818124 Problem Restless leg syndrome G25.81 Active 10440400 Problem Acquired hypothyroidism E03.9 Active 327842369 Problem Hypercalcemia E83.52 Active 01629788 Problem Bilateral carotid artery disease I77.9 Active 691434682 Problem Chronic kidney disease, stage 1 N18.1 Active 484076297 Problem Type 2 diabetes mellitus with diabetic chronic kidney disease E11.22 Active 04506543 Problem Osteoarthritis of spine with radiculopathy, cervical region M47.22 Active 412520566 Problem Low back pain M54.5 Active 886248818 Problem Vitamin D deficiency E55.9 Active 08220613 Problem Coronary artery disease involving [place] coronary artery of [place] heart without angina pectoris I25.10 Active 7542252553368 Problem Essential hypertension I10 Active 25393946 Problem Renal insufficiency N28.9 Active 111710471 Problem Type 2 diabetes mellitus without complication, without long-term current use of insulin E11.9 Active 813077926 ALLERGIES No Information ENCOUNTERS Encounter Location Date Diagnosis [facility] [id number], [place] [address] September, [facility] [id number] [place] [address] 70322- 9328 Aug, Type 2 diabetes mellitus without complication, without long- term current use of insulin E11.9 ; Essential hypertension I10 ; Acquired hypothyroidism E03.9 and Low back pain M54.5 [facility] [address] [place] [address] 40061- 4332 Aug, [facility] [address] [place] [address] 98700- 8508 Aug, [facility] [id number] [place] [address] 65017- 5635 Jul, [facility] [id number] [place] [address] 28592- 1442 Jul, Coronary artery disease involving [place] coronary artery of [place] heart without angina pectoris I25.10 [facility] [id number] [place] [address] 55613- 0675 Jun, Low back pain M54.5 and Essential hypertension I10 [place] [id number] [place] [address] 85236- 8308 Jun, Head cold J00 [place] [id number] [place] [address] 12874- 7037 May, [facility] [id number] [place] [address] 29896- 6023 Apr, Type 2 diabetes mellitus without complication, without long- term current use of insulin E11.9 [place] [id number] [place] [address] 41935- 4310 12 Apr, 2017 Type 2 diabetes mellitus without complication, without long- term current use of insulin E11.9 [place] [id number] [place] [address] 19902- 2659 Apr, Essential hypertension I10 [facility] [id number] [place] [address] 24660- 3730 Mar, [facility] [id number] [place] [address] 43445- 7624 Mar, [place] [id number] [place] [address] 74211- 9857 06 Mar, 2017 Osteoarthritis of spine with radiculopathy, cervical region M47.22 [place] [id number] [place] [address] 97998- 0234 Mar, [place] [address] [place] [address] 40135- 3007 Feb, [place] [id number] [place] [address] 34822- 4278 Feb, Screening breast examination Z12.31 ; Bilateral carotid artery disease I77.9 ; Low back pain M54.5 ; Osteoarthritis of spine with radiculopathy, cervical region M47.22 ; Renal insufficiency N28.9 ; Vitamin D deficiency E55.9 ; Restless leg syndrome G25.81 ; Acquired hypothyroidism E03.9 ; Coronary artery disease involving [place] coronary artery of [place] heart without angina pectoris I25.10 ; Vertigo R42 ; Essential hypertension I10 ; Type 2 diabetes mellitus with diabetic chronic kidney disease E11.22 and Encounter for immunization Z23 [place] [id number] [place] [address] 71043- 9393 Jan, [place] [id number] [place] [address] 60078- 2180 Jan, Type 2 diabetes mellitus without complication, without long- term current use of insulin E11.9 ; Low back pain M54.5 ; Osteoarthritis of spine with radiculopathy, cervical region M47.22 ; Renal insufficiency N28.9 ; Vitamin D deficiency E55.9 ; Restless leg syndrome G25.81 ; Bilateral carotid artery disease I77.9 ; Acquired hypothyroidism E03.9 ; Coronary artery disease involving [place] coronary artery of [place] heart without angina pectoris I25.10 and Lipoma of back D17.1 [place] [address] [place] [address] 39303- 0877 Jan, Type 2 diabetes mellitus without complication, without long- term current use of insulin E11.9 [place] [id number] [place] [address] 97521- 9173 Dec, Osteoarthritis of spine with radiculopathy, cervical region M47.22 [place] [id number] [place] [address] 88637- 5958 Nov, [place] [address] [place] [address] 75254- 1883 Nov, Low back pain M54.5 and Osteoarthritis of spine with radiculopathy, cervical region M47.22 [place] [id number] [place] [address] 07748- 6794 Nov, Osteoarthritis of spine with radiculopathy, cervical [...] hypothyroidism E03.9 ; Coronary artery disease involving [place] coronary artery of [place] heart without angina pectoris I25.10 ; Hypercalcemia E83.52 and Left foot pain M79.672 [place] [id number] [place] [address] 16199- 4014 Oct, [place] [id number] [place] [address] 66882- 2315 Oct, Osteoarthritis of spine with radiculopathy, cervical region M47.22 [place] [id number] [place] [address] 42603- 3250 Oct, Abnormal blood chemistry R79.9 [place] [id number] [place] [address] 87300- 0882 September, Osteoarthritis of spine with radiculopathy, cervical region M47.22 ; Essential hypertension I10 ; Renal insufficiency N28.9 ; Type 2 diabetes mellitus without complication, without long-term current use of insulin E11.9 ; Vitamin D deficiency E55.9 ; Paresthesia of both hands R20.2 ; Low back pain M54.5 ; Restless leg syndrome G25.81 and Dizziness R42 [place] [id number] [place] [address] 16513- 8444 September, [place] [address] [address] September, [facility] [address] [address] September, [facility] [address] [address] September, [facility] [address], [place] [address] Aug, [facility] [address] [address] Aug, [facility] [address] [address] 0[address] Aug, [facility] [address] [address] Aug, [facility] [address] [address] Aug, Osteoarthritis of spine with radiculopathy, cervical region M47.22 [facility] [address] [address] 7314 Aug, Essential hypertension I10 ; Renal insufficiency N28.9 ; Type 2 diabetes mellitus without complication, without long-term current use of insulin E11.9 ; Vitamin D deficiency E55.9 ; Paresthesia of both hands R20.2 ; Low back pain M54.5 ; Restless leg syndrome G25.81 ; Osteoarthritis of spine with radiculopathy, cervical region M47.22 and Dizziness R42 [facility] [id number], [place] [address] 8698 Jul, [facility] [address] [address] 7[address] Jul, [facility] [id number], [place] [address] Jul, Essential hypertension I10 ; Paresthesia of both hands R20.2 ; Upper respiratory tract infection, unspecified type J06.9 and Low back pain M54.5 [facility] [address] [address] 4[address] Jul, [facility] [id number] [place] [address] 47686- 8739 Jul, [facility] [id number] [place] [address] 67126- 4071 Jul, Renal insufficiency N28.9 ; Vitamin D deficiency E55.9 ; Type 2 diabetes mellitus without complication, without long-term current use of insulin E11.9 ; Restless leg syndrome G25.81 ; Type 2 diabetes mellitus with diabetic chronic kidney disease E11.22 and Chronic kidney disease, stage 1 N18.1 [place] [id number] [place] [address] 20574- 1447 Jul, Renal insufficiency N28.9 [place] [id number] [place] [address] 35684- 8158 Jun, [facility] [address] [place] [address] 18030- 8575 Jun, Renal insufficiency N28.9 ; Vitamin D deficiency E55.9 ; Type 2 diabetes mellitus without complication, without long-term current use of insulin E11.9 ; Restless leg syndrome G25.81 ; Type 2 diabetes mellitus with diabetic chronic kidney disease E11.22 and Chronic kidney disease, stage 1 N18.1 [facility] [address] [address]- 9[address] Jun, [facility] [address] [place] [address]- 6853 May, [facility] [id number] [place] [address] 40973- 1813 May, [facility] [address], [place] [address]- 4874 May, [facility] [id number] [place] [address] 12214- 5633 May, [facility] [address] [place] [address] 08733- 1225 May, [facility] [id number] [place] [address] 61178- 1460 Apr, Acquired hypothyroidism E03.9 ; Essential hypertension I10 ; Type 2 diabetes mellitus without complication, without long-term current use of insulin E11.9 and Mixed hyperlipidemia E78.2 [place] [id number] [place] [address] 73757- 7417 Apr, Type 2 diabetes mellitus without complication, without long- term current use of insulin E11.9 ; Coronary artery disease involving [place] coronary artery of [place] heart without angina pectoris I25.10 ; Essential hypertension I10 and Acquired hypothyroidism E03.9 [facility] [id number] [place] [address] 07481- 6451 Apr, Cellulitis of left lower extremity L03.116 [place] [id number] [place] [address] 28500- 3112 Apr, Essential hypertension I10 ; Mixed hyperlipidemia E78.2 ; Type 2 diabetes mellitus without complication, without long-term current use of insulin E11.9 ; Acquired hypothyroidism E03.9 ; Cellulitis of left lower extremity L03.116 and Coronary artery disease involving [place] coronary artery of [place] heart without angina pectoris I25.10 [facility] [address] [place] [address] 70462- 4859 Apr, [facility] [address] [place] [address] 41045 -2536 Dec, Dermatitis L30.9 [facility] [id number] [place] [address] 50301- 6763 Aug, [facility] [id number] [place] [address] 34597- 9157 Aug, [facility] [address] [place] [address] 22990- 2827 Jan, [facility] [address] [facility] [id number] [address] Jan, [facility] [address] [facility] [id number], [place] [address] 2546 Jun, [facility] [address] [facility] [id number] [address]- 4376 May, [facility] [address] [facility] [id number], [place] [address]- 3766 May, [facility] [address] [facility] [id number], [place] [address]- 5887 May, [facility] [address] [facility] [id number], [place] [address]- 0216 Apr, [facility] [address], [place] [address]- 5866 Feb, [facility] [id number], [place] [address]- 6136 Feb, [facility] [address] [address]- 1418 Nov, [facility] [address] [address]- 1846 Nov, [facility] [id number], [place] [address]- 2326 Nov, [facility] [address] [address]- 1180 Nov, [facility] [address] [facility] [id number], [place] [address]- 0166 Nov, [facility] [address] [place] [address]- 4403 Nov, [facility] [id number], [place] [address]- 3328 Nov, IMMUNIZATIONS No Known Immunizations SOCIAL HISTORY Never Assessed REASON FOR VISIT Gabapentin Change PLAN OF CARE VITAL SIGNS MEDICATIONS Unknown Medications RESULTS No Results PROCEDURES No Known procedures INSTRUCTIONS MEDICATIONS ADMINISTERED No Known Medications MEDICAL (GENERAL) HISTORY Type Description Date Surgical History cholecystectomy Surgical History hernia repair Surgical History carotid endarterectomy Surgical History 2 stents placed-cardiac Surgical History cataract surgery Hospitalization History black out spells Hospitalization History Surgery(s) only
--- OUTSIDE RECORDS SUMMARY | 2018-04-05 20:04 | XMS REPORT ---
Author Author SAKSHI TIDWELL [facility] Address [address] [place] [address] Care Team Providers Care Olive Grower Name Role Phone SAKSHI TIDWELL Unavailable PROBLEMS Type Condition ICD9-CM Code BYV80-JJ Code Onset Dates Condition Status SNOMED Code Problem Essential hypertension I10 Active 80522493 Problem Type 2 diabetes mellitus with diabetic chronic kidney disease E11.22 Active 60497616 Problem Chronic kidney disease, stage 1 N18.1 Active 598101040 Problem Bilateral carotid artery disease I77.9 Active 853498513 Problem Hypercalcemia E83.52 Active 74669980 Problem Low back pain M54.5 Active 459825415 Problem Restless leg syndrome G25.81 Active 65440059 Problem Paresthesia of both hands R20.2 Active 468015831 Problem Osteoarthritis of spine with radiculopathy, cervical region M47.22 Active 970981835 Problem Abnormal blood chemistry R79.9 Active 922741971 Problem Coronary artery disease involving [place] coronary artery of [place] heart without angina pectoris I25.10 Active 6719676760694 Problem Acquired hypothyroidism E03.9 Active 745768231 Problem Vitamin D deficiency E55.9 Active 66019533 Problem Type 2 diabetes mellitus without complication, without long-term current use of insulin E11.9 Active 520571198 Problem Renal insufficiency N28.9 Active 107454026 Problem Mixed hyperlipidemia E78.2 Active 253739861 ALLERGIES Unknown Allergies SOCIAL HISTORY No smoking Hx information available PLAN OF CARE VITAL SIGNS MEDICATIONS Medication Instructions Dosage Frequency Start Date End Date Duration Status Potassium Chloride ER 10 MEQ Orally Once a day 1 capsule with food 24h 30 days Active Hydrochlorothiazide 25 MG Orally Once a day 1 tablet 24h 30 days Active Metformin HCl 500 MG Orally Once a day 1 tablet with meals 24h 30 days Active Levothyroxine Sodium 75 MCG Orally Once a day 1 tablet on an empty stomach in the morning 24h 30 days Active Metoprolol Tartrate 25 MG Orally Once a day 1/2 tablet 24h 30 days Active Lisinopril 10 MG Orally Once a day 1 tablet 24h 30 days Active RESULTS No Results PROCEDURES No Known procedures IMMUNIZATIONS No Known Immunizations
--- OUTSIDE RECORDS SUMMARY | 2018-04-05 20:05 | XMS REPORT ---
Author Author SAKSHI TIDWELL Organization [facility] Address [address] [place] [address] Care Team Providers Care Chart Collector Name Role Phone SAKSHI TIDWELL Unavailable PROBLEMS Type Condition ICD9-CM Code NKE39-MX Code Onset Dates Condition Status SNOMED Code Problem Mixed hyperlipidemia E78.2 Active 328298371 Problem Restless leg syndrome G25.81 Active 23140034 Problem Acquired hypothyroidism E03.9 Active 670723686 Problem Hypercalcemia E83.52 Active 18853878 Problem Bilateral carotid artery disease I77.9 Active 451800981 Problem Chronic kidney disease, stage 1 N18.1 Active 771179239 Problem Type 2 diabetes mellitus with diabetic chronic kidney disease E11.22 Active 82111902 Problem Osteoarthritis of spine with radiculopathy, cervical region M47.22 Active 166046022 Problem Low back pain M54.5 Active 780147075 Problem Vitamin D deficiency E55.9 Active 68520423 Problem Coronary artery disease involving [place] coronary artery of [place] heart without angina pectoris I25.10 Active 5954907471648 Problem Essential hypertension I10 Active 04770986 Problem Renal insufficiency N28.9 Active 141721074 Problem Type 2 diabetes mellitus without complication, without long-term current use of insulin E11.9 Active 722827679 ALLERGIES No Information ENCOUNTERS Encounter Location Date Diagnosis [facility] [id number], [place] [address] September, [facility] [id number] [place] [address] 84056- 8716 September, [facility] [id number] [place] [address] 69370- 9095 Aug, Type 2 diabetes mellitus without complication, without long- term current use of insulin E11.9 ; Essential hypertension I10 ; Acquired hypothyroidism E03.9 and Low back pain M54.5 [facility] [address], [place] [address] Aug, [facility] [id number] [place] [address] 47573- 4003 Aug, [facility] [id number] [place] [address] 65975- 8961 Jul, [facility] [id number] [place] [address] 00252- 8138 Jul, Coronary artery disease involving [place] coronary artery of [place] heart without angina pectoris I25.10 [facility] [id number] [place] [address] 04288- 7163 Jun, Low back pain M54.5 and Essential hypertension I10 [facility] [id number] [place] [address] 34599- 0932 Jun, Head cold J00 [facility] [id number] [place] [address] 18805- 3444 May, [facility] [id number] [place] [address] 43395- 2610 Apr, Type 2 diabetes mellitus without complication, without long- term current use of insulin E11.9 [facility] [id number] [place] [address] 04506- 1898 Apr, Type 2 diabetes mellitus without complication, without long- term current use of insulin E11.9 [facility] [id number] [place] [address] 26798- 3624 Apr, Essential hypertension I10 [facility] [id number] [place] [address] 94307- 8141 Mar, [facility] [id number] [place] [address] 54685- 8888 Mar, [facility] [id number] [place] [address] 68512- 8105 Mar, Osteoarthritis of spine with radiculopathy, cervical region M47.22 [facility] [address], [place] [address] Mar, [facility] [id number] [place] [address] 27546- 2173 Feb, [facility] [id number] [place] [address] 86724- 0186 Feb, Screening breast examination Z12.31 ; Bilateral carotid artery disease I77.9 ; Low back pain M54.5 ; Osteoarthritis of spine with radiculopathy, cervical region M47.22 ; Renal insufficiency N28.9 ; Vitamin D deficiency E55.9 ; Restless leg syndrome G25.81 ; Acquired hypothyroidism E03.9 ; Coronary artery disease involving [place] coronary artery of [place] heart without angina pectoris I25.10 ; Vertigo R42 ; Essential hypertension I10 ; Type 2 diabetes mellitus with diabetic chronic kidney disease E11.22 and Encounter for immunization Z23 [facility] [id number] [place] [address] 08476- 7861 Jan, [facility] [id number] [place] [address] 92812- 6180 Jan, Type 2 diabetes mellitus without complication, without long- term current use of insulin E11.9 ; Low back pain M54.5 ; Osteoarthritis of spine with radiculopathy, cervical region M47.22 ; Renal insufficiency N28.9 ; Vitamin D deficiency E55.9 ; Restless leg syndrome G25.81 ; Bilateral carotid artery disease I77.9 ; Acquired hypothyroidism E03.9 ; Coronary artery disease involving [place] coronary artery of [place] heart without angina pectoris I25.10 and Lipoma of back D17.1 [facility] [id number] [place] [address] 05879- 2584 Jan, Type 2 diabetes mellitus without complication, without long- term current use of insulin E11.9 [facility] [address] [place] [address] 13531- 0769 Dec, Osteoarthritis of spine with radiculopathy, cervical region M47.22 [facility] [address] [place] [address] 92231- 4786 Nov, [facility] [id number] [place] [address] 50738- 2508 Nov, Low back pain M54.5 and Osteoarthritis of spine with radiculopathy, cervical region M47.22 [facility] [id number] [place] [address] 18469- 2076 Nov, Osteoarthritis of spine with radiculopathy, cervical [...] hypothyroidism E03.9 ; Coronary artery disease involving [place] coronary artery of [place] heart without angina pectoris I25.10 ; Hypercalcemia E83.52 and Left foot pain M79.672 [facility] [id number] [place] [address] 58877- 5725 Oct, [facility] [id number] [place] [address] 96255- 0240 Oct, Osteoarthritis of spine with radiculopathy, cervical region M47.22 [facility] [address] [place] [address] 75648- 3739 Oct, Abnormal blood chemistry R79.9 [facility] [address] [place] [address] 96791- 5667 September, Osteoarthritis of spine with radiculopathy, cervical region M47.22 ; Essential hypertension I10 ; Renal insufficiency N28.9 ; Type 2 diabetes mellitus without complication, without long-term current use of insulin E11.9 ; Vitamin D deficiency E55.9 ; Paresthesia of both hands R20.2 ; Low back pain M54.5 ; Restless leg syndrome G25.81 and Dizziness R42 [facility] [address], [place] [address] 3[address] September, [facility] [address], [place] [address] 6537 September, [facility] [address], [place] [address] 1415 September, [facility] [id number] [place] [address] 38998- 1374 September, [facility] [id number] [place] [address] 93356- 6265 Aug, [facility] [id number] [place] [address] 41307- 2611 Aug, [facility] [id number] [place] [address] 93090- 3789 Aug, [facility] [id number] [place] [address] 09733- 4875 Aug, [facility] [address] [place] [address] 60909- 0043 Aug, Osteoarthritis of spine with radiculopathy, cervical region M47.22 [facility] [address], [place] [address] 0425 Aug, Essential hypertension I10 ; Renal insufficiency N28.9 ; Type 2 diabetes mellitus without complication, without long-term current use of insulin E11.9 ; Vitamin D deficiency E55.9 ; Paresthesia of both hands R20.2 ; Low back pain M54.5 ; Restless leg syndrome G25.81 ; Osteoarthritis of spine with radiculopathy, cervical region M47.22 and Dizziness R42 [facility] [address], [place] [address] 7709 Jul, [facility] [address], [place] [address] 3813 Jul, [facility] [address] [place] [address] 00244- 9975 Jul, Essential hypertension I10 ; Paresthesia of both hands R20.2 ; Upper respiratory tract infection, unspecified type J06.9 and Low back pain M54.5 [facility] [address], [place] [address]- 0447 15 Jul, 2016 [facility] [id number] [place] [address] 64603- 8540 Jul, [facility] [id number] [place] [address] 24349- 3388 Jul, Renal insufficiency N28.9 ; Vitamin D deficiency E55.9 ; Type 2 diabetes mellitus without complication, without long-term current use of insulin E11.9 ; Restless leg syndrome G25.81 ; Type 2 diabetes mellitus with diabetic chronic kidney disease E11.22 and Chronic kidney disease, stage 1 N18.1 [facility] [address] [place] [address] 76960- 3191 Jul, Renal insufficiency N28.9 [facility] [address] [place] [address] 84229- 7259 Jun, [facility] [id number] [place] [address] 13584- 2419 Jun, Renal insufficiency N28.9 ; Vitamin D deficiency E55.9 ; Type 2 diabetes mellitus without complication, without long-term current use of insulin E11.9 ; Restless leg syndrome G25.81 ; Type 2 diabetes mellitus with diabetic chronic kidney disease E11.22 and Chronic kidney disease, stage 1 N18.1 [facility] [address], [place] [address]- 3054 Jun, [facility] [id number] [place] [address] 38069- 1466 May, [facility] [address], [place] [address]- 9556 May, [facility] [address] [place] [address] 00918- 2701 May, [facility] [address], [place] [address]- 9182 May, [facility] [address] [place] [address] 36933- 9187 May, [facility] [address] [place] [address] 81211- 0255 Apr, Mixed hyperlipidemia E78.2 ; Acquired hypothyroidism E03.9 ; Essential hypertension I10 and Type 2 diabetes mellitus without complication, without long-term current use of insulin E11.9 [facility] [address] [place] [address] 78408- 6079 Apr, Type 2 diabetes mellitus without complication, without long- term current use of insulin E11.9 ; Coronary artery disease involving [place] coronary artery of [place] heart without angina pectoris I25.10 ; Essential hypertension I10 and Acquired hypothyroidism E03.9 [facility] [address] [place] [address] 06015- 0213 Apr, Cellulitis of left lower extremity L03.116 [facility] [address] [place] [address] 13746- 3888 Apr, Essential hypertension I10 ; Mixed hyperlipidemia E78.2 ; Type 2 diabetes mellitus without complication, without long-term current use of insulin E11.9 ; Acquired hypothyroidism E03.9 ; Cellulitis of left lower extremity L03.116 and Coronary artery disease involving [place] coronary artery of [place] heart without angina pectoris I25.10 [facility] [address], [place] [address]- 2349 14 Apr, 2016 [facility] [address] [place] [address] 98599 -9415 Dec, Dermatitis L30.9 [facility] [address] [place] [address] 18925- 7138 Aug, [facility] [address] [place] [address] 55305- 0838 Aug, [facility] [address] [id number] [place] [address]- 8010 Jan, [facility] [place] [facility] [address] [id number] [place] [address]- 6346 Jan, [facility] [place] [facility] [address] [id number] [place] [address]- 2876 Jun, [facility] [place] [facility] [address] [id number] [place] [address]- 1974 May, [facility] [address] [id number] [place] [address]- 5899 May, [facility] [place] [facility] [address] [id number] [place] [address]- 2931 May, [facility] [address] [id number] [place] [address]- 4725 Apr, [facility] [address] [id number] [place] [address]- 6463 Feb, [facility] [address] [id number] [place] [address]- 4780 Feb, [facility] [address] [id number] [place] [address]- 3652 Nov, [facility] [place] [facility] [address] [id number] [place] [address]- 3329 Nov, [facility] [place] [facility] [address] [id number] [place] [address]- 6955 Nov, [facility] [place] [facility] [address] [id number] [place] [address]- 7514 Nov, [facility] [place] [facility] [address] [id number] [place] [address]- 1977 Nov, [facility] [place] [facility] [address] [id number] [place] [address]- 7073 Nov, [facility] [place] [facility] [address] [id number] [place] [address]- 6630 Nov, IMMUNIZATIONS No Known Immunizations SOCIAL HISTORY Never Assessed REASON FOR VISIT Refill request PLAN OF CARE VITAL SIGNS MEDICATIONS Medication Instructions Dosage Frequency Start Date End Date Duration Status Pen [place] 30G X 5 MM as directed 24h Active True Metrix Blood Glucose Test - In Vitro Once a day & prn as directed Active RESULTS No Results PROCEDURES No Known procedures INSTRUCTIONS MEDICATIONS ADMINISTERED No Known Medications MEDICAL (GENERAL) HISTORY Type Description Date Surgical History cholecystectomy Surgical History hernia repair Surgical History carotid endarterectomy Surgical History 2 stents placed-cardiac Surgical History cataract surgery Hospitalization History black out spells Hospitalization History Surgery(s) only
--- OUTSIDE RECORDS SUMMARY | 2018-04-05 20:05 | XMS REPORT ---
Author Author SAKSHI TIDWELL [facility] Address [address] [place] [address] Care Team Providers Care Mounter [employer] Name Role Phone SAKSHI TIDWELL Unavailable PROBLEMS Type Condition ICD9-CM Code ZMH15-GO Code Onset Dates Condition Status SNOMED Code Problem Essential hypertension I10 Active 08081848 Problem Type 2 diabetes mellitus with diabetic chronic kidney disease E11.22 Active 07589737 Problem Chronic kidney disease, stage 1 N18.1 Active 590062889 Problem Bilateral carotid artery disease I77.9 Active 330083204 Problem Hypercalcemia E83.52 Active 58116557 Problem Low back pain M54.5 Active 767727130 Problem Restless leg syndrome G25.81 Active 84616801 Problem Paresthesia of both hands R20.2 Active 433331035 Problem Osteoarthritis of spine with radiculopathy, cervical region M47.22 Active 017583416 Problem Abnormal blood chemistry R79.9 Active 962117834 Problem Coronary artery disease involving [place] coronary artery of [place] heart without angina pectoris I25.10 Active 2758337473040 Problem Acquired hypothyroidism E03.9 Active 799405573 Problem Vitamin D deficiency E55.9 Active 09559119 Problem Type 2 diabetes mellitus without complication, without long-term current use of insulin E11.9 Active 258626837 Problem Renal insufficiency N28.9 Active 702347712 Problem Mixed hyperlipidemia E78.2 Active 162118290 ALLERGIES Unknown Allergies SOCIAL HISTORY No smoking Hx information available PLAN OF CARE VITAL SIGNS MEDICATIONS Unknown Medications RESULTS Name Result Date Reference Range A1C (IN HOUSE) 2016-05-11 A1C IN HOUSE 6.0 4.3 - 5.6 % Previous A1c N/A Lot [id number] Exp date 02/2018 TSH 2016-05-11 TSH 3.860 0.450-4.500 CBC 2016-05-11 WBC 11.2 3.4-10.8 RBC 5.02 3.77-5.28 Hemoglobin 13.7 11.1-15.9 Hematocrit 41.7 34.0-46.6 MCV 83 79-97 MCH 27.3 26.6-33.0 MCHC 32.9 31.5-35.7 RDW 15.3 12.3-15.4 Platelets 267 150-379 Neutrophils 44 Lymphs 41 Monocytes 10 Eos 3 Basos 1 Neutrophils (Absolute) 5.0 1.4-7.0 Lymphs (Absolute) 4.6 0.7-3.1 Monocytes(Absolute) 1.1 0.1-0.9 Eos (Absolute) 0.3 0.0-0.4 Baso (Absolute) 0.1 0.0-0.2 Immature Granulocytes 1 Immature Grans (Abs) 0.1 0.0-0.1 VITAMIN D, 25-H 2016-05-11 Vitamin D, 25-Hydroxy 9.2 30.0-100.0 LIPID PANEL 2016-05-11 Cholesterol, Total 189 100-199 Triglycerides 156 0-149 HDL Cholesterol 64 >39 VLDL Cholesterol Joseph 31 5-40 LDL Cholesterol Calc 94 0-99 CMP 2016-05-11 Glucose, Serum 89 65-99 BUN 29 8-27 Creatinine, Serum 1.20 0.57-1.00 eGFR If NonAfricn Am 49 >59 eGFR If Africn Am 56 >59 BUN/Creatinine Ratio 24 11-26 Sodium, Serum 145 134-144 Potassium, Serum 4.2 3.5-5.2 Chloride, Serum 101 96-106 Carbon Dioxide, Total 27 18-29 Calcium, Serum 9.9 8.7-10.3 Protein, Total, Serum 6.9 6.0-8.5 Albumin, Serum 4.5 3.6-4.8 Globulin, Total 2.4 1.5-4.5 A/G Ratio 1.9 1.1-2.5 Bilirubin, Total 0.5 0.0-1.2 Alkaline Phosphatase, S 38 39-117 AST (SGOT) 15 0-40 ALT (SGPT) 11 0-32 PROCEDURES Procedure Date Ordered Related Diagnosis Body [facility] May 11, 2016 GLYCATED HEMOGLOBIN TEST May 11, 2016 VENIPUNCT, ROUTINE* May 11, 2016 IMMUNIZATIONS No Known Immunizations
--- OUTSIDE RECORDS SUMMARY | 2018-04-05 20:05 | XMS REPORT ---
Author Author SAKSHI TIDWELL [facility] Address [address] [place] [address] Care Team Providers Care Surgical First Assistant Name Role Phone SAKSHI TIDWELL Unavailable PROBLEMS Type Condition ICD9-CM Code POF80-SO Code Onset Dates Condition Status SNOMED Code Problem Acquired hypothyroidism E03.9 Active 825623224 Problem Type 2 diabetes mellitus with diabetic chronic kidney disease E11.22 Active 72342844 Problem Restless leg syndrome G25.81 Active 07892316 Problem Hypercalcemia E83.52 Active 61069734 Problem Bilateral carotid artery disease I77.9 Active 279031269 Problem Low back pain M54.5 Active 793969213 Problem Chronic kidney disease, stage 1 N18.1 Active 194553086 Problem Paresthesia of both hands R20.2 Active 393116363 Problem Osteoarthritis of spine with radiculopathy, cervical region M47.22 Active 725174082 Problem Renal insufficiency N28.9 Active 704091463 Problem Coronary artery disease involving [place] coronary artery of [place] heart without angina pectoris I25.10 Active 6353679992549 Problem Essential hypertension I10 Active 31581725 Problem Vitamin D deficiency E55.9 Active 03417809 Problem Type 2 diabetes mellitus without complication, without long-term current use of insulin E11.9 Active 686779692 Problem Abnormal blood chemistry R79.9 Active 659421625 Problem Mixed hyperlipidemia E78.2 Active 066126453 ALLERGIES Unknown Allergies SOCIAL HISTORY No smoking Hx information available PLAN OF CARE VITAL SIGNS MEDICATIONS Medication Instructions Dosage Frequency Start Date End Date Duration Status Cholecalciferol 62524 UNIT Orally once weekly for 12 weeks 1 tablet May, Active Cholecalciferol 3000 UNIT [place] [address] [place] 1 tablet May, Active Bydureon 2 MG Subcutaneous once weekly as directed May, Active RESULTS No Results PROCEDURES No Known procedures IMMUNIZATIONS No Known Immunizations
--- OUTSIDE RECORDS SUMMARY | 2018-04-05 20:05 | XMS REPORT ---
Author Author SAKSHI TIDWELL Organization [facility] Address [address] [place] [address] Care Team Providers Care Laboratory Chemist Name Role Phone SAKSHI TIDWELL Unavailable PROBLEMS Type Condition ICD9-CM Code GQD41-VT Code Onset Dates Condition Status SNOMED Code Problem Mixed hyperlipidemia E78.2 Active 553387551 Problem Restless leg syndrome G25.81 Active 52142759 Problem Acquired hypothyroidism E03.9 Active 506296308 Problem Hypercalcemia E83.52 Active 32082706 Problem Bilateral carotid artery disease I77.9 Active 523509419 Problem Chronic kidney disease, stage 1 N18.1 Active 514170705 Problem Type 2 diabetes mellitus with diabetic chronic kidney disease E11.22 Active 00760153 Problem Osteoarthritis of spine with radiculopathy, cervical region M47.22 Active 986597985 Problem Low back pain M54.5 Active 602258861 Problem Vitamin D deficiency E55.9 Active 02573595 Problem Coronary artery disease involving [place] coronary artery of [place] heart without angina pectoris I25.10 Active 1168854115907 Problem Essential hypertension I10 Active 16801939 Problem Renal insufficiency N28.9 Active 330884188 Problem Type 2 diabetes mellitus without complication, without long-term current use of insulin E11.9 Active 848545280 ALLERGIES No Information ENCOUNTERS Encounter Location Date Diagnosis [facility] [id number], [place] [address] Aug, Type 2 diabetes mellitus without complication, without long- term current use of insulin E11.9 ; Essential hypertension I10 ; Acquired hypothyroidism E03.9 and Low back pain M54.5 [facility] [address], [place] [address] Aug, [facility] [address], [place] [address] Aug, [facility] [id number] [place] [address] 08154- 9708 Jul, [facility] [id number] [place] [address] 23804- 2542 Jul, Coronary artery disease involving [place] coronary artery of [place] heart without angina pectoris I25.10 [facility] [id number] [place] [address] 81657- 4472 Jun, Low back pain M54.5 and Essential hypertension I10 [facility] [id number] [place] [address] 21584- 7769 Jun, Head cold J00 [facility] [id number] [place] [address] 72548- 0244 May, [facility] [id number] [place] [address] 97276- 9972 Apr, Type 2 diabetes mellitus without complication, without long- term current use of insulin E11.9 [facility] [id number] [place] [address] 94675- 8670 Apr, Type 2 diabetes mellitus without complication, without long- term current use of insulin E11.9 [facility] [id number] [place] [address] 43728- 7416 05 Apr, 2017 Essential hypertension I10 [facility] [id number] [place] [address] 55271- 3498 Mar, [facility] [id number] [place] [address] 91667- 9005 Mar, [facility] [id number] [place] [address] 79417- 3403 Mar, Osteoarthritis of spine with radiculopathy, cervical region M47.22 [facility] [id number] [place] [address] 34234- 0040 Mar, [facility] [id number] [place] [address] 27030- 0140 Feb, [address], [place] [address] Feb, Screening breast examination Z12.31 ; Bilateral carotid artery disease I77.9 ; Low back pain M54.5 ; Osteoarthritis of spine with radiculopathy, cervical region M47.22 ; Renal insufficiency N28.9 ; Vitamin D deficiency E55.9 ; Restless leg syndrome G25.81 ; Acquired hypothyroidism E03.9 ; Coronary artery disease involving [place] coronary artery of [place] heart without angina pectoris I25.10 ; Vertigo R42 ; Essential hypertension I10 ; Type 2 diabetes mellitus with diabetic chronic kidney disease E11.22 and Encounter for immunization Z23 [id number] [place] [address] 03459- 7633 Jan, [place] [id number] [place] [address] 80253- 6265 Jan, Type 2 diabetes mellitus without complication, without long- term current use of insulin E11.9 ; Low back pain M54.5 ; Osteoarthritis of spine with radiculopathy, cervical region M47.22 ; Renal insufficiency N28.9 ; Vitamin D deficiency E55.9 ; Restless leg syndrome G25.81 ; Bilateral carotid artery disease I77.9 ; Acquired hypothyroidism E03.9 ; Coronary artery disease involving [place] coronary artery of [place] heart without angina pectoris I25.10 and Lipoma of back D17.1 [place] [id number] [place] [address] 05114- 7466 Jan, Type 2 diabetes mellitus without complication, without long- term current use of insulin E11.9 [address] [place], [place] [address] Dec, Osteoarthritis of spine with radiculopathy, cervical region M47.22 [address] [address], [place] [address] 6[address] Nov, [place] [id number] [place] [address] 70657- 7867 Nov, Low back pain M54.5 and Osteoarthritis of spine with radiculopathy, cervical region M47.22 [place] [id number] [place] [address] 43471- 0952 Nov, Osteoarthritis of spine with radiculopathy, cervical [...] hypothyroidism E03.9 ; Coronary artery disease involving [place] coronary artery of [place] heart without angina pectoris I25.10 ; Hypercalcemia E83.52 and Left foot pain M79.672 [place] [id number] [place] [address] 04490- 1710 Oct, [place] [address] [address]- [address] Oct, Osteoarthritis of spine with radiculopathy, cervical region M47.22 [place] [id number] [place] [address] 74727- 9854 Oct, Abnormal blood chemistry R79.9 [address] [id number] [place] [address] 13132- 6465 September, Osteoarthritis of spine with radiculopathy, cervical region M47.22 ; Essential hypertension I10 ; Renal insufficiency N28.9 ; Type 2 diabetes mellitus without complication, without long-term current use of insulin E11.9 ; Vitamin D deficiency E55.9 ; Paresthesia of both hands R20.2 ; Low back pain M54.5 ; Restless leg syndrome G25.81 and Dizziness R42 [address] [id number] [place] [address] 89680- 9994 September, [id number] [place] [address] 82632- 8391 September, [address], [place] [address] 8[address] September, [facility] [address], [place] [address] 2214 September, [facility] [address], [place] [address] 7764 Aug, [facility] [address], [place] [address] 45[address] Aug, [facility] [address], [place] [address] 7681 Aug, [facility] [id number] [place] [address] 14424- 4142 Aug, [facility] [address], [place] [address] 1435 Aug, Osteoarthritis of spine with radiculopathy, cervical region M47.22 [facility] [address], [place] [address] 9121 Aug, Essential hypertension I10 ; Renal insufficiency N28.9 ; Type 2 diabetes mellitus without complication, without long-term current use of insulin E11.9 ; Vitamin D deficiency E55.9 ; Paresthesia of both hands R20.2 ; Low back pain M54.5 ; Restless leg syndrome G25.81 ; Osteoarthritis of spine with radiculopathy, cervical region M47.22 and Dizziness R42 [facility] [address], [place] [address]- 6570 Jul, [facility] [id number], [place] [address] 4911 Jul, [facility] [address], [place] [address] 6603 Jul, Essential hypertension I10 ; Paresthesia of both hands R20.2 ; Upper respiratory tract infection, unspecified type J06.9 and Low back pain M54.5 [facility] [address], [place] [address] 1004 Jul, [facility] [address], [place] [address]- 6414 Jul, [facility] [address], [place] [address]- 6940 Jul, Renal insufficiency N28.9 ; Vitamin D deficiency E55.9 ; Type 2 diabetes mellitus without complication, without long-term current use of insulin E11.9 ; Restless leg syndrome G25.81 ; Type 2 diabetes mellitus with diabetic chronic kidney disease E11.22 and Chronic kidney disease, stage 1 N18.1 [facility] [id number] [place] [address] 91790- 5416 Jul, Renal insufficiency N28.9 [facility] [address], [place] [address]- 0688 Jun, [facility] [id number] [place] [address] 74603- 9211 Jun, Renal insufficiency N28.9 ; Vitamin D deficiency E55.9 ; Type 2 diabetes mellitus without complication, without long-term current use of insulin E11.9 ; Restless leg syndrome G25.81 ; Type 2 diabetes mellitus with diabetic chronic kidney disease E11.22 and Chronic kidney disease, stage 1 N18.1 [facility] [address], [place] [address]- 0687 Jun, [facility] [address], [place] [address]- 5235 May, [facility] [address], [place] [address]- 8544 May, [facility] [id number], [place] [address]- 7751 May, [facility] [address], [place] [address]- 1718 May, [facility] [id number] [place] [address] 88536- 2832 May, [facility] [id number] [place] [address] 87911- 8632 Apr, Mixed hyperlipidemia E78.2 ; Acquired hypothyroidism E03.9 ; Essential hypertension I10 and Type 2 diabetes mellitus without complication, without long-term current use of insulin E11.9 [facility] [id number] [place] [address] 25862- 9982 Apr, Type 2 diabetes mellitus without complication, without long- term current use of insulin E11.9 ; Coronary artery disease involving [place] coronary artery of [place] heart without angina pectoris I25.10 ; Essential hypertension I10 and Acquired hypothyroidism E03.9 [facility] [id number] [place] [address] 58724- 4288 Apr, Cellulitis of left lower extremity L03.116 [id number] [place] [address] 87977- 1776 Apr, Essential hypertension I10 ; Mixed hyperlipidemia E78.2 ; Type 2 diabetes mellitus without complication, without long-term current use of insulin E11.9 ; Acquired hypothyroidism E03.9 ; Cellulitis of left lower extremity L03.116 and Coronary artery disease involving [place] coronary artery of [place] heart without angina pectoris I25.10 [facility] [id number] [place] [address] 54789- 9474 Apr, [facility] [id number] [place] [address] 02750 -1317 Dec, Dermatitis L30.9 [facility] [id number] [place] [address] 85511- 1192 Aug, [facility] [id number] [place] [address] 28353- 1889 Aug, [facility] [id number] [place] [address] 12936- 8813 Jan, [facility] [id number] [place] [address] 52561- 9469 Jan, [facility] [address] [facility] [id number] [address] 2546 Jun, [facility] [address] [facility] [id number] [address]- 2546 May, [facility] [address], [place] [address]- 2546 May, [facility] [address], [place] [address]- 2546 May, [facility] [address] [facility] [id number] [address]- 8758 Apr, [facility] [address], [place] [address]- 2546 Feb, [facility] [address], [place] [address]- 3756 Feb, [facility] [address], [place] [address]- 9026 Nov, [facility] [address], [place] [address]- 6302 Nov, [facility] [address], [place] [address]- 6156 Nov, [facility] [address], [place] [address]- 5656 Nov, [facility] [address], [place] [address]- 4128 Nov, [facility] [id number], [place] [address]- 8984 Nov, [facility] [address], [place] [address]- 9266 Nov, IMMUNIZATIONS No Known Immunizations SOCIAL HISTORY Never Assessed REASON FOR VISIT Refill request PLAN OF CARE VITAL SIGNS MEDICATIONS Medication Instructions Dosage Frequency Start Date End Date Duration Status Pen [place] 30G X 5 MM as directed 24h Jan, Active RESULTS No Results PROCEDURES No Known procedures INSTRUCTIONS MEDICATIONS ADMINISTERED No Known Medications MEDICAL (GENERAL) HISTORY Type Description Date Surgical History cholecystectomy Surgical History hernia repair Surgical History carotid endarterectomy Surgical History 2 stents placed-cardiac Surgical History cataract surgery Hospitalization History black out spells Hospitalization History Surgery(s) only
--- OUTSIDE RECORDS SUMMARY | 2018-04-05 20:05 | XMS REPORT ---
Author Author SAKSHI TIDWELL [facility] Address [address] [place] [address] Care Team Providers Care Head Of Academic Technology Name Role Phone SAKSHI TIDWELL Unavailable PROBLEMS Type Condition ICD9-CM Code NGS89-LO Code Onset Dates Condition Status SNOMED Code Problem Acquired hypothyroidism E03.9 Active 609869082 Problem Type 2 diabetes mellitus with diabetic chronic kidney disease E11.22 Active 50460321 Problem Restless leg syndrome G25.81 Active 86463543 Problem Hypercalcemia E83.52 Active 28196722 Problem Bilateral carotid artery disease I77.9 Active 902882171 Problem Low back pain M54.5 Active 861056939 Problem Chronic kidney disease, stage 1 N18.1 Active 071010691 Problem Paresthesia of both hands R20.2 Active 682803175 Problem Osteoarthritis of spine with radiculopathy, cervical region M47.22 Active 006293391 Problem Renal insufficiency N28.9 Active 792643931 Problem Coronary artery disease involving [place] coronary artery of [place] heart without angina pectoris I25.10 Active 2499417817433 Problem Essential hypertension I10 Active 50600193 Problem Vitamin D deficiency E55.9 Active 23039737 Problem Type 2 diabetes mellitus without complication, without long-term current use of insulin E11.9 Active 246014597 Problem Abnormal blood chemistry R79.9 Active 893449890 Problem Mixed hyperlipidemia E78.2 Active 090936157 ALLERGIES Unknown Allergies SOCIAL HISTORY No smoking Hx information available PLAN OF CARE VITAL SIGNS MEDICATIONS Unknown Medications RESULTS No Results PROCEDURES No Known procedures IMMUNIZATIONS No Known Immunizations
--- OUTSIDE RECORDS SUMMARY | 2018-04-05 20:20 | XMS REPORT | Continuity of Care Document ---
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 KATHRIN K Ot 414.00 04/05/2015 YEN PA, KATHRIN K Ot 427.89 04/05/2015 DANIELLA GONZALEZ DO Ot 244.9 04/05/2015 DANIELLA GONZALEZ DO Ot 250.00 04/05/2015 DANIELLA GONZALEZ DO Ot 250.00 04/05/2015 DANIELLA GONZALEZ DO Ot 780.2 04/05/2015 Ot R53.83 04/14/2015 Ot R53.83 06/03/2015 KORIN STRATTON DO Lester Ot S61.211A LACERATION W/O FB OF L IDX FNGR W/O SAPNA 06/03/2015 KORIN STRATTON DO Lester Ot W45.8XXA OTH FOREIGN BODY OR OBJECT ENTERING THRO 06/03/2015 KORIN STRATTON DO Lester Ot Y92.[address] [facility] 06/03/2015 KORIN STRATTON DO Ot Y99.8 OTHER EXTERNAL CAUSE STATUS 06/03/2015 KORIN STRATTON DO Lester Ot Z23 ENCOUNTER FOR IMMUNIZATION 06/23/2015 Ot 789.09 06/23/2015 Ot 573.8 06/23/2015 Ot 789.00 06/23/2015 Ot V76.12 06/23/2015 Ot 250.00 06/23/2015 Ot 593.9 06/23/2015 Ot 414.00 06/23/2015 Ot 786.50 06/23/2015 Ot 414.01 06/23/2015 Ot 719.41 06/23/2015 Ot 571.8 06/23/2015 Ot 789.1 06/23/2015 Ot 272.4 06/23/2015 Ot 401.9 06/23/2015 Ot 414.00 06/23/2015 Ot V58.69 06/23/2015 Ot V72.84 06/23/2015 Ot 427.89 06/23/2015 DANIELLA GONZALEZ DO Ot V76.12 06/23/2015 JOSHUA ROJO, BOBBI Olivera Ot 250.00 06/23/2015 JOSHUA ROJO, BOBBI Olivera Ot 272.4 06/23/2015 JOSHUA ROJO, BOBBI Olivera Ot 401.9 06/23/2015 JOSHUA ROJO, BOBBI Olivera Ot 414.00 06/23/2015 JOSHUA RJOO, BOBBI Olivera Ot 780.4 06/23/2015 JOSHUA ROJO, BOBBI Olivera Ot 786.50 06/23/2015 JOSHUA ROJO, BOBBI Olivera Ot 250.00 06/23/2015 JOSHUA ROJO, BOBBI Olivera Ot 272.4 06/23/2015 JOSHUA ROJO, BOBBI Olivera Ot 401.9 06/23/2015 BOBBI LEWIS MD Ot 414.00 06/23/2015 JOSHUA ROJO, BOBBI Olivera Ot 786.50 06/23/2015 NAKITA ROJO, RENATO S Ot 433.10 06/23/2015 NAKITA ROJO, RENATO S Ot V72.84 06/23/2015 NAKITA ROJO, RENATO S Ot V74.8 06/23/2015 DANIELLA GONZALEZ DO Ot V76.12 06/23/2015 YEN PA, KATHRIN K Ot 272.4 06/23/2015 QUENTINPsychologyOnlineNATHALIA PA, KATHRIN K Ot 250.00 06/23/2015 YEN PA, KATHRIN K Ot 272.4 06/23/2015 QUENTINPsychologyOnlineNATHALIA PA, KATHRIN K Ot 278.00 06/23/2015 YEN PA, KATHRIN K Ot 401.9 06/23/2015 YEN PA, KATHRIN K Ot 414.00 06/23/2015 YEN PA, KATHRIN K Ot 427.89 06/23/2015 YEN PA, KATHRIN K Ot 435.9 06/23/2015 YEN PA, KATHRIN K Ot 780.2 06/23/2015 DANIELLA GONZALEZ DO A Ot 250.00 06/23/2015 DANIELLA GONZALEZ DO Ot 414.01 06/23/2015 JOSHUA ROJO, BOBBI Olivera Ot 244.9 06/23/2015 JOSHUA ROJO, BOBBI J Ot 250.00 06/23/2015 JOSHUA ROJO, BOBBI J Ot 401.9 06/23/2015 JOSHUA ROJO, BOBBI J Ot 414.00 06/23/2015 JOSHUA ROJO, BOBBI J Ot 427.89 06/23/2015 JOSHUA ROJO, BOBBI Olivera Ot 433.10 06/23/2015 JOSHUA ROJO, BELLAHAR J Ot 435.9 06/23/2015 JOSHUA ROJO, BOBBI Olivera Ot 780.2 06/23/2015 JOSHUA ROJO, BOBBI Olivera Ot V58.63 06/23/2015 JOSHUA ROJO, BOBBI Olivera Ot V58.69 06/23/2015 DANIELLA GONZALEZ DO Ot V76.12 06/23/2015 YEN PA, KATHRIN K Ot 250.00 06/23/2015 YEN PA, KATHRIN K Ot 272.4 06/23/2015 YEN PA, KATHRIN Mensah Ot 414.9 06/23/2015 YEN PA, KATHRIN Mensah Ot 427.89 06/23/2015 YEN PA, KATHRIN Mensah Ot 250.00 06/23/2015 YEN PA, KATHRIN Mensah Ot 272.4 06/23/2015 YEN PA, KATHRIN Mensah Ot 414.00 06/23/2015 YEN PA, KATHRIN Mensah Ot 427.89 06/23/2015 GELLENDER DO, DANIELLA Bradford Ot 244.9 06/23/2015 GELLENDER DO, DANIELLA Bradford Ot 250.00 06/23/2015 GELLENDER DO, DANIELLA Bradford Ot 250.00 06/23/2015 GELLENDER DO, DANIELLA Bradford Ot 780.2 06/23/2015 Ot R53.83 07/06/2015 GELLENDER DO, DANIELLA Bradford Ot E03.9 07/06/2015 GELLENDER DO, DANIELLA Bradford Ot I10 07/06/2015 GELLENDER DO, DANIELLA Bradford Ot R05 07/06/2015 GELLENDER DO, DANIELLA Bradford Ot R06.02 07/06/2015 GELLENDER DO, DANIELLA Bradford Ot R53.83 08/24/2015 GELLENDER DO, DANIELLA Bradford Ot V76.12 10/07/2015 JOSHUA ROJO, BOBBI Olivera Ot E78.2 MIXED HYPERLIPIDEMIA 10/07/2015 JOSHUA ROJO, BOBBI Olivera Ot I10 ESSENTIAL (PRIMARY) HYPERTENSION 10/07/2015 BOBBI LEWIS MD Ot I25.10 ATHSCL HEART DISEASE OF [place] CORONARY 10/07/2015 JOSHUA ROJO, BOBBI Olivera Ot R06.02 SHORTNESS OF BREATH 10/07/2015 BOBBI LEWIS MD Ot R07.89 OTHER CHEST PAIN 10/07/2015 LORI ROJO, TANJA Bradford Ot K52.9 NONINFECTIVE GASTROENTERITIS AND COLITIS 10/07/2015 Ot 789.09 ABDOMINAL PAIN, OTHER SPECIFIED SITE 10/07/2015 Ot 573.8 LIVER DISORDERS NEC 10/07/2015 Ot 789.00 ABDOMINAL PAIN, UNSPECIFIED SITE 10/07/2015 Ot V76.12 OTH SCREEN MAMMO-MALIGN NEOPLASM OF [place] 10/07/2015 Ot 250.00 DIAB GUILLERMO WO COMPL, TYPE II OR UNSPEC TY 10/07/2015 Ot 593.9 RENAL URETERAL DIS NOS 10/07/2015 Ot 414.00 CORON ATHEROSCLER NOS TYPE VESSEL, NATIV 10/07/2015 Ot 786.50 CHEST PAIN NOS 10/07/2015 Ot 414.01 CORONARY ATHEROSCLEROSIS OF [place] CORON 10/07/2015 Ot 719.41 JOINT PAIN- SHLDER 10/07/2015 Ot 571.8 CHRONIC LIVER DIS NEC 10/07/2015 Ot 789.1 HEPATOMEGALY 10/07/2015 Ot 272.4 HYPERLIPIDEMIA NEC/NOS 10/07/2015 Ot 401.9 HYPERTENSION NOS 10/07/2015 Ot 414.00 CORON ATHEROSCLER NOS TYPE VESSEL, NATIV 10/07/2015 Ot V58.69 OTH MED,LT, CURRENT USE 10/07/2015 Ot V72.84 EXAM PRE- OPERATIVE NOS 10/07/2015 Ot 427.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 NEC 10/07/2015 DANIELLA GONZALEZ DO Ot V76.12 OTH SCREEN MAMMO-MALIGN NEOPLASM OF [place] 10/07/2015 BOBBI LEWIS MD Ot 250.00 DIAB GUILLERMO WO COMPL, TYPE II OR UNSPEC TY 10/07/2015 BOBBI LEWIS MD Ot 272.4 HYPERLIPIDEMIA NEC/NOS 10/07/2015 BOBBI LEWIS MD Ot 401.9 HYPERTENSION NOS 10/07/2015 BOBBI LEWIS MD Ot 414.00 CORON ATHEROSCLER NOS TYPE VESSEL, NATIV 10/07/2015 BOBBI LEWIS MD Ot 780.4 DIZZINESS AND GIDDINESS 10/07/2015 BOBBI LEWIS MD Ot 786.50 CHEST PAIN NOS 10/07/2015 BOBBI LEWIS MD Ot 250.00 DIAB GUILLERMO WO COMPL, TYPE II OR UNSPEC TY 10/07/2015 BOBBI LEWIS MD Ot 272.4 HYPERLIPIDEMIA NEC/NOS 10/07/2015 BOBBI LEWIS MD Ot 401.9 HYPERTENSION NOS 10/07/2015 BOBBI LEWIS MD Ot 414.00 CORON ATHEROSCLER NOS TYPE VESSEL, NATIV 10/07/2015 BOBBI LEWIS MD Ot 786.50 CHEST PAIN NOS 10/07/2015 RENATO MACE MD Ot 433.10 CAROTID ARTERY OCCLUSION W O CEREBRAL IN 10/07/2015 RENATO MACE MD Ot V72.84 EXAM PRE-OPERATIVE NOS 10/07/2015 NAKITA ROJO, RENATO Conley Ot V74.8 SCREEN-BACTERIAL DIS NEC 10/07/2015 DANIELLA GONZALEZ DO Ot V76.12 OTH SCREEN MAMMO-MALIGN NEOPLASM OF [place] 10/07/2015 KATHRIN MCGUIRE Ot 272.4 HYPERLIPIDEMIA NEC/NOS 10/07/2015 KATHRIN MCGUIRE Ot 250.00 DIAB GUILLERMO WO COMPL, TYPE II OR UNSPEC TY 10/07/2015 KATHRIN MCGUIRE Ot 272.4 HYPERLIPIDEMIA NEC/NOS 10/07/2015 KATHRIN MCGUIRE Ot 278.00 OBESITY, NOS 10/07/2015 KATHRIN MCGUIRE Ot 401.9 HYPERTENSION NOS 10/07/2015 KATHRIN MCGUIRE Ot 414.00 CORON ATHEROSCLER NOS TYPE VESSEL, NATIV 10/07/2015 KATHRIN MCGUIRE Ot 427.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 NEC 10/07/2015 KATHRIN MCGUIRE Ot 435.9 TRANS CEREB ISCHEMIA NOS 10/07/2015 KATHRIN MCGUIRE Ot 780.2 SYNCOPE AND COLLAPSE 10/07/2015 DANIELLA GONZALEZ DO Ot 250.00 DIAB GUILLERMO WO COMPL, TYPE II OR UNSPEC TY 10/07/2015 DANIELLA GONZALEZ DO Ot 414.01 CORONARY ATHEROSCLEROSIS OF [place] CORON 10/07/2015 BOBBI LEWIS MD Ot 244.9 HYPOTHYROIDISM NOS 10/07/2015 BOBBI LEWIS MD Ot 250.00 DIAB GUILLERMO WO COMPL, TYPE II OR UNSPEC TY 10/07/2015 BOBBI LEWIS MD Ot 401.9 HYPERTENSION NOS 10/07/2015 BOBBI LEWIS MD Ot 414.00 CORON ATHEROSCLER NOS TYPE VESSEL, NATIV 10/07/2015 BOBBI LEWIS MD Ot 427.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 NEC 10/07/2015 BOBBI LEWIS MD Ot 433.10 CAROTID ARTERY OCCLUSION W O CEREBRAL IN 10/07/2015 BOBBI LEWIS MD Ot 435.9 TRANS CEREB ISCHEMIA NOS 10/07/2015 BOBBI LEWIS MD Ot 780.2 SYNCOPE AND COLLAPSE 10/07/2015 BOBBI LEWIS MD Ot V58.63 LONG-TERM(CURRENT)USE OF ANTIPLATELET/AN 10/07/2015 JOSHUA ROJO, BOBBI Olivera Ot V58.69 OTH MED,LT,CURRENT USE 10/07/2015 LISA MALDONADO DANIELLA Suzette Ot V76.12 OTH SCREEN MAMMO-MALIGN NEOPLASM OF [place] 10/07/2015 KATHRIN MCGUIRE Ot 250.00 DIAB GUILLERMO WO COMPL, TYPE II OR UNSPEC TY 10/07/2015 KATHRIN MCGUIRE Ot 272.4 HYPERLIPIDEMIA NEC/NOS 10/07/2015 KATHRIN MCGUIRE Ot 414.9 CHR ISCHEMIC HRT DIS NOS 10/07/2015 KATHRIN MCGUIRE Ot 427.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 NEC 10/07/2015 KATHRIN MCGUIRE Ot 250.00 DIAB GUILLERMO WO COMPL, TYPE II OR UNSPEC TY 10/07/2015 KATHRIN MCGIURE Ot 272.4 HYPERLIPIDEMIA NEC/NOS 10/07/2015 KATHRIN MCGUIRE Ot 414.00 CORON ATHEROSCLER NOS TYPE VESSEL, NATIV 10/07/2015 KATHRIN MCGUIRE Ot 427.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 NEC 10/07/2015 DANIELLA GONZALEZ DO Ot 244.9 HYPOTHYROIDISM NOS 10/07/2015 DANIELLA GONZALEZ DO Ot 250.00 DIAB GUILLERMO WO COMPL, TYPE II OR UNSPEC TY 10/07/2015 GELLENDER DANIELLA MALDONADO Ot 250.00 DIAB GUILLERMO WO COMPL, TYPE II OR UNSPEC TY 10/07/2015 DANIELLA GONZALEZ DO Ot 780.2 SYNCOPE AND COLLAPSE 10/07/2015 Ot R53.83 OTHER FATIGUE 10/07/2015 GELLENDER DANIELLA MALDONADO Ot E03.9 HYPOTHYROIDISM, UNSPECIFIED 10/07/2015 GELLENDER DANIELLA MALDONADO Ot I10 ESSENTIAL (PRIMARY) HYPERTENSION 10/07/2015 DANIELLA GONZALEZ DO Ot R05 COUGH 10/07/2015 GELLENDER DANIELLA MALDONADO Ot R06.02 SHORTNESS OF BREATH 10/07/2015 GELLENDANIELLA TORRES DO Ot R53.83 OTHER FATIGUE 10/07/2015 BOBBI LEWIS MD Ot E78.2 MIXED HYPERLIPIDEMIA 10/07/2015 BOBBI LEWIS MD Ot I10 ESSENTIAL (PRIMARY) HYPERTENSION 10/07/2015 BOBBI LEWIS MD Ot I25.10 ATHSCL HEART DISEASE OF [place] CORONARY 10/07/2015 BOBBI LEWIS MD Ot R06.02 SHORTNESS OF BREATH 10/07/2015 BOBBI LEWIS MD Ot R07.89 OTHER CHEST PAIN 10/09/2015 LORI ROJO, TANJA Bradford Ot K52.9 NONINFECTIVE GASTROENTERITIS AND COLITIS 10/21/2015 BOBBI LEWIS MD Ot E78.2 MIXED HYPERLIPIDEMIA 10/21/2015 BOBBI LEWIS MD Ot I10 ESSENTIAL (PRIMARY) HYPERTENSION 10/21/2015 BOBBI LEWIS MD Ot I25.10 ATHSCL HEART DISEASE OF [place] CORONARY 10/21/2015 BOBBI LEWIS MD Ot R06.02 SHORTNESS OF BREATH 10/21/2015 BOBBI LEWIS MD Ot R07.89 OTHER CHEST PAIN 11/19/2015 DOLORES CRUZ Ot B35.4 TINEA CORPORIS 11/21/2015 DOLORES CRUZ Ot B35.4 TINEA CORPORIS 11/30/2015 Ot V76.12 OTH SCREEN MAMMO-MALIGN NEOPLASM OF [place] 11/30/2015 Ot 250.00 DIAB GUILLERMO WO COMPL, TYPE II OR UNSPEC TY 11/30/2015 Ot 593.9 RENAL URETERAL DIS NOS 11/30/2015 Ot 414.00 CORON ATHEROSCLER NOS TYPE VESSEL, NATIV 11/30/2015 Ot 786.50 CHEST PAIN NOS 11/30/2015 Ot 414.01 CORONARY ATHEROSCLEROSIS OF [place] CORON 11/30/2015 Ot 719.41 JOINT PAIN- SHLDER 11/30/2015 Ot 571.8 CHRONIC LIVER DIS NEC 11/30/2015 Ot 789.1 HEPATOMEGALY 11/30/2015 Ot 272.4 HYPERLIPIDEMIA NEC/NOS 11/30/2015 Ot 401.9 HYPERTENSION NOS 11/30/2015 Ot 414.00 CORON ATHEROSCLER NOS TYPE VESSEL, NATIV 11/30/2015 Ot V58.69 OTH MED,LT, CURRENT USE 11/30/2015 Ot V72.84 EXAM PRE- OPERATIVE NOS 11/30/2015 Ot 427.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 NEC 11/30/2015 DANIELLA GONZALEZ DO Ot V76.12 OTH SCREEN MAMMO-MALIGN NEOPLASM OF [place] 11/30/2015 BOBBI LEWIS MD Ot 250.00 DIAB GUILLERMO WO COMPL, TYPE II OR UNSPEC TY 11/30/2015 BOBBI LEWIS MD Ot 272.4 HYPERLIPIDEMIA NEC/NOS 11/30/2015 BOBBI LEWIS MD Ot 401.9 HYPERTENSION NOS 11/30/2015 BOBBI LEWIS MD Ot 414.00 CORON ATHEROSCLER NOS TYPE VESSEL, NATIV 11/30/2015 BOBBI LEWIS MD Ot 780.4 DIZZINESS AND GIDDINESS 11/30/2015 BOBBI LEWIS MD Ot 786.50 CHEST PAIN NOS 11/30/2015 BOBBI LEWIS MD Ot 250.00 DIAB GUILLERMO WO COMPL, TYPE II OR UNSPEC TY 11/30/2015 BOBBI LEWIS MD Ot 272.4 HYPERLIPIDEMIA NEC/NOS 11/30/2015 BOBBI LEWIS MD Ot 401.9 HYPERTENSION NOS 11/30/2015 BOBBI LEWIS MD Ot 414.00 CORON ATHEROSCLER NOS TYPE VESSEL, NATIV 11/30/2015 BOBBI LEWIS MD Ot 786.50 CHEST PAIN NOS 11/30/2015 RENATO MACE MD Ot 433.10 CAROTID ARTERY OCCLUSION W O CEREBRAL IN 11/30/2015 RENATO MACE MD Ot V72.84 EXAM PRE-OPERATIVE NOS 11/30/2015 NAKITA ROJO, RENATO Conley Ot V74.8 SCREEN-BACTERIAL DIS NEC 11/30/2015 DANIELLA GONZALEZ DO Ot V76.12 OTH SCREEN MAMMO-MALIGN NEOPLASM OF [place] 11/30/2015 KATHRIN MCGUIRE Ot 272.4 HYPERLIPIDEMIA NEC/NOS 11/30/2015 KATHRIN MCGUIRE Ot 250.00 DIAB GUILLERMO WO COMPL, TYPE II OR UNSPEC TY 11/30/2015 KATHRIN MCGUIRE Ot 272.4 HYPERLIPIDEMIA NEC/NOS 11/30/2015 KATHRIN MCGUIRE Ot 278.00 OBESITY, NOS 11/30/2015 KATHRIN MCGUIRE Ot 401.9 HYPERTENSION NOS 11/30/2015 KATHRIN MCGUIRE Ot 414.00 CORON ATHEROSCLER NOS TYPE VESSEL, NATIV 11/30/2015 KATHRIN MCGUIRE Ot 427.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 NEC 11/30/2015 KATHRIN MCGUIRE Ot 435.9 TRANS CEREB ISCHEMIA NOS 11/30/2015 KATHRIN MCGUIRE Ot 780.2 SYNCOPE AND COLLAPSE 11/30/2015 DANIELLA GONZALEZ DO Ot 250.00 DIAB GUILLERMO WO COMPL, TYPE II OR UNSPEC TY 11/30/2015 DANIELLA GONZALEZ DO Ot 414.01 CORONARY ATHEROSCLEROSIS OF [place] CORON 11/30/2015 BOBBI LEWIS MD Ot 244.9 HYPOTHYROIDISM NOS 11/30/2015 BOBBI LEWIS MD Ot 250.00 DIAB GUILLERMO WO COMPL, TYPE II OR UNSPEC TY 11/30/2015 BOBBI LEWIS MD Ot 401.9 HYPERTENSION NOS 11/30/2015 BOBBI LEWIS MD Ot 414.00 CORON ATHEROSCLER NOS TYPE VESSEL, NATIV 11/30/2015 BOBBI LEWIS MD Ot 427.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 NEC 11/30/2015 BOBBI LEWIS MD Ot 433.10 CAROTID ARTERY OCCLUSION W O CEREBRAL IN 11/30/2015 BOBBI LEWIS MD Ot 435.9 TRANS CEREB ISCHEMIA NOS 11/30/2015 BOBBI LEWIS MD Ot 780.2 SYNCOPE AND COLLAPSE 11/30/2015 BOBBI LEWIS MD Ot V58.63 LONG-TERM(CURRENT)USE OF ANTIPLATELET/AN 11/30/2015 BOBBI LEWIS MD, Ot V58.69 OTH MED,LT,CURRENT USE 11/30/2015 DANIELLA GONZALEZ DO Ot V76.12 OTH SCREEN MAMMO-MALIGN NEOPLASM OF [place] 11/30/2015 KATHRIN MCGUIRE Ot 250.00 DIAB GUILLERMO WO COMPL, TYPE II OR UNSPEC TY 11/30/2015 KATHRIN MCGUIRE Ot 272.4 HYPERLIPIDEMIA NEC/NOS 11/30/2015 KATHRIN MCGUIRE Ot 414.9 CHR ISCHEMIC HRT DIS NOS 11/30/2015 KATHRIN MCGUIRE Ot 427.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 NEC 11/30/2015 KATHRIN MCGUIRE Ot 250.00 DIAB GUILLERMO WO COMPL, TYPE II OR UNSPEC TY 11/30/2015 KATHRIN MCGUIRE Ot 272.4 HYPERLIPIDEMIA NEC/NOS 11/30/2015 KATHRIN MCGUIRE Ot 414.00 CORON ATHEROSCLER NOS TYPE VESSEL, NATIV 11/30/2015 KATHRIN MCGUIRE Ot 427.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 NEC 11/30/2015 PJLENDER , DANIELLA Bradford Ot 244.9 HYPOTHYROIDISM NOS 11/30/2015 GELLENDER DO, DANIELLA Suzette Ot 250.00 DIAB GUILLERMO WO COMPL, TYPE II OR UNSPEC TY 11/30/2015 GELLENDER DO, DANIELLA Suzette Ot 250.00 DIAB GUILLERMO WO COMPL, TYPE II OR UNSPEC TY 11/30/2015 GELLENDER DO, DANIELLA Suzette Ot 780.2 SYNCOPE AND COLLAPSE 11/30/2015 Ot R53.83 OTHER FATIGUE 11/30/2015 GELLENDER DO, DANIELLA Suzette Ot E03.9 HYPOTHYROIDISM, UNSPECIFIED 11/30/2015 GELLENDER DO, DANIELLA Bradford Ot I10 ESSENTIAL (PRIMARY) HYPERTENSION 11/30/2015 GELLENDER DODANIELLA Ot R05 COUGH 11/30/2015 GELLENDER DO, DANIELLA Bradford Ot R06.02 SHORTNESS OF BREATH 11/30/2015 GELLENDER DO, DANIELLA Bradford Ot R53.83 OTHER FATIGUE 11/30/2015 BOBBI LEWIS MD Ot E78.2 MIXED HYPERLIPIDEMIA 11/30/2015 JOSHUA ROJO, BOBBI Olivera Ot I10 ESSENTIAL (PRIMARY) HYPERTENSION 11/30/2015 BOBBI LEWIS MD Ot I25.10 ATHSCL HEART DISEASE OF [place] CORONARY 11/30/2015 BOBBI LEWIS MD Ot R06.02 SHORTNESS OF BREATH 11/30/2015 BOBBI LEWIS MD Ot R07.89 OTHER CHEST PAIN 12/01/2015 PJLENDER DODANIELLA Ot E03.9 HYPOTHYROIDISM, UNSPECIFIED 12/01/2015 GELLENDER DO, DANIELLA Bradford Ot E78.5 HYPERLIPIDEMIA, UNSPECIFIED 12/16/2015 GELLENDER DO, DANIELLA Bradford Ot E03.9 HYPOTHYROIDISM, UNSPECIFIED 12/16/2015 GELLENDER DO, DANIELLA Bradford Ot E78.5 HYPERLIPIDEMIA, UNSPECIFIED 12/27/2015 GELLENDER DO, DANIELLA Bradford Ot E03.9 HYPOTHYROIDISM, UNSPECIFIED 01/17/2016 KATHRIN MCGUIRE Ot E78.2 MIXED HYPERLIPIDEMIA 01/17/2016 KATHRIN MCGUIRE Ot I25.10 ATHSCL HEART DISEASE OF [place] CORONARY 01/20/2016 LISA MALDONADO, DANIELLA Bradford Ot Z12.31 ENCNTR SCREEN MAMMOGRAM FOR MALIGNANT NE 01/20/2016 LISA MALDONADO DANIELLA Bradford Ot Z12.31 ENCNTR SCREEN MAMMOGRAM FOR MALIGNANT NE 01/25/2016 KATHRIN MCGUIRE Ot E78.2 MIXED HYPERLIPIDEMIA 01/25/2016 KATHRIN MCGUIRE Ot I10 ESSENTIAL (PRIMARY) HYPERTENSION 01/25/2016 KATHRIN MCGUIRE Ot I25.10 ATHSCL HEART DISEASE OF [place] CORONARY 01/25/2016 YEN SHAH, KATHRIN Mensah Ot R07.89 OTHER CHEST PAIN 02/01/2016 LISA MALDONADO DANIELLA Bradford Ot Z12.31 ENCNTR SCREEN MAMMOGRAM FOR MALIGNANT NE 02/04/2016 ELMO DO, PEDRO K Ot E11.9 TYPE 2 DIABETES MELLITUS WITHOUT COMPLIC 02/04/2016 ELMO DO, PEDRO K Ot I10 ESSENTIAL (PRIMARY) HYPERTENSION 02/04/2016 ELMO DO, PEDRO K Ot L30.9 DERMATITIS, UNSPECIFIED 02/04/2016 ELMO DO, PEDRO K Ot R21 RASH AND OTHER NONSPECIFIC SKIN ERUPTION 02/04/2016 ELMO DO, PEDRO K Ot 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 02/04/2016 ELMO DO, PEDRO K Ot Z79.899 OTHER SNF (CURRENT) DRUG THERAPY 02/04/2016 ELMO DO, PEDRO K Ot Z95.5 PRESENCE OF CORONARY ANGIOPLASTY IMPLANT 02/06/2016 ELMO DO, PEDRO K Ot E11.9 TYPE 2 DIABETES MELLITUS WITHOUT COMPLIC 02/06/2016 ELMO DO, PEDRO K Ot I10 ESSENTIAL (PRIMARY) HYPERTENSION 02/06/2016 ELMO DO, PEDRO K Ot L30.9 DERMATITIS, UNSPECIFIED 02/06/2016 ELMO DO, PEDRO K Ot R21 RASH AND OTHER NONSPECIFIC SKIN ERUPTION 02/06/2016 ELMO DO PEDRO K Ot 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 02/06/2016 ELMO DO PEDRO K Ot Z79.899 OTHER BOILER MECHANIC (CURRENT) DRUG THERAPY 02/06/2016 ELMO DO PEDRO K Ot Z95.5 PRESENCE OF CORONARY ANGIOPLASTY IMPLANT 02/09/2016 KATHRIN MCGUIRE Ot E78.2 MIXED HYPERLIPIDEMIA 02/09/2016 KATHRIN MCGUIRE Ot I10 ESSENTIAL (PRIMARY) HYPERTENSION 02/09/2016 KATHRIN MCGUIRE Ot I25.10 ATHSCL HEART DISEASE OF [place] CORONARY 02/09/2016 KATHRIN MCGUIRE Ot R07.89 OTHER CHEST PAIN 02/10/2016 Ot V76.12 OTH SCREEN MAMMO-MALIGN NEOPLASM OF [place] 02/10/2016 Ot 414.00 CORON ATHEROSCLER NOS TYPE VESSEL, NATIV 02/10/2016 Ot 786.50 CHEST PAIN NOS 02/10/2016 Ot 414.01 CORONARY ATHEROSCLEROSIS OF [place] CORON 02/10/2016 Ot 719.41 JOINT PAIN- SHLDER 02/10/2016 Ot 571.8 CHRONIC LIVER DIS NEC 02/10/2016 Ot 789.1 HEPATOMEGALY 02/10/2016 Ot 272.4 HYPERLIPIDEMIA NEC/NOS 02/10/2016 Ot 401.9 HYPERTENSION NOS 02/10/2016 Ot 414.00 CORON ATHEROSCLER NOS TYPE VESSEL, NATIV 02/10/2016 Ot V58.69 OTH MED,LT, CURRENT USE 02/10/2016 Ot V72.84 EXAM PRE- OPERATIVE NOS 02/10/2016 Ot 427.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 NEC 02/10/2016 DANIELLA GONZALEZ DO Ot V76.12 OTH SCREEN MAMMO-MALIGN NEOPLASM OF [place] 02/10/2016 BOBBI LEWIS MD Ot 250.00 DIAB GUILLERMO WO COMPL, TYPE II OR UNSPEC TY 02/10/2016 BOBBI LEWIS MD Ot 272.4 HYPERLIPIDEMIA NEC/NOS 02/10/2016 BOBBI LEWIS MD Ot 401.9 HYPERTENSION NOS 02/10/2016 BOBBI LEWIS MD Ot 414.00 CORON ATHEROSCLER NOS TYPE VESSEL, NATIV 02/10/2016 BOBBI LEWIS MD Ot 780.4 DIZZINESS AND GIDDINESS 02/10/2016 BOBBI LEWIS MD Ot 786.50 CHEST PAIN NOS 02/10/2016 BOBBI LEWIS MD Ot 250.00 DIAB GUILLERMO WO COMPL, TYPE II OR UNSPEC TY 02/10/2016 BOBBI LEWIS MD Ot 272.4 HYPERLIPIDEMIA NEC/NOS 02/10/2016 BOBBI LEWIS MD Ot 401.9 HYPERTENSION NOS 02/10/2016 BOBBI LEWIS MD Ot 414.00 CORON ATHEROSCLER NOS TYPE VESSEL, NATIV 02/10/2016 JOSHUA ROJO, BOBBI Olivera Ot 786.50 CHEST PAIN NOS 02/10/2016 NAKITA ROJO, RENATO Conley Ot 433.10 CAROTID ARTERY OCCLUSION W O CEREBRAL IN 02/10/2016 NAKITA ROJO, RENATO Conley Ot V72.84 EXAM PRE-OPERATIVE NOS 02/10/2016 NAKITA ROJO, RENATO Conley Ot V74.8 SCREEN-BACTERIAL DIS NEC 02/10/2016 DANIELLA GONZALEZ DO Ot V76.12 OTH SCREEN MAMMO-MALIGN NEOPLASM OF [place] 02/10/2016 KATHRIN MCGUIRE Ot 272.4 HYPERLIPIDEMIA NEC/NOS 02/10/2016 KATHRIN MCGUIRE Ot 250.00 DIAB GUILLERMO WO COMPL, TYPE II OR UNSPEC TY 02/10/2016 KATHRIN MCGUIRE Ot 272.4 HYPERLIPIDEMIA NEC/NOS 02/10/2016 KATHRIN MCGUIRE Ot 278.00 OBESITY, NOS 02/10/2016 KATHRIN MCGUIRE Ot 401.9 HYPERTENSION NOS 02/10/2016 KATHRIN MCGUIRE Ot 414.00 CORON ATHEROSCLER NOS TYPE VESSEL, NATIV 02/10/2016 KATHRIN MCGUIRE Ot 427.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 NEC 02/10/2016 KATHRIN MCGUIRE Ot 435.9 TRANS CEREB ISCHEMIA NOS 02/10/2016 KATHRIN MCGUIRE Ot 780.2 SYNCOPE AND COLLAPSE 02/10/2016 DANIELLA GONZALEZ DO Ot 250.00 DIAB GUILLERMO WO COMPL, TYPE II OR UNSPEC TY 02/10/2016 DANIELLA GONZALEZ DO Ot 414.01 CORONARY ATHEROSCLEROSIS OF [place] CORON 02/10/2016 BOBBI LEWIS MD Ot 244.9 HYPOTHYROIDISM NOS 02/10/2016 BOBBI LEWIS MD Ot 250.00 DIAB GUILLERMO WO COMPL, TYPE II OR UNSPEC TY 02/10/2016 BOBBI LEWIS MD Ot 401.9 HYPERTENSION NOS 02/10/2016 BOBBI LEWIS MD Ot 414.00 CORON ATHEROSCLER NOS TYPE VESSEL, NATIV 02/10/2016 BOBBI LEWIS MD Ot 427.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 NEC 02/10/2016 BOBBI LEWIS MD Ot 433.10 CAROTID ARTERY OCCLUSION W O CEREBRAL IN 02/10/2016 BOBBI LEWIS MD Ot 435.9 TRANS CEREB ISCHEMIA NOS 02/10/2016 BOBBI LEWIS MD Ot 780.2 SYNCOPE AND COLLAPSE 02/10/2016 BOBBI LEWIS MD Ot V58.63 LONG-TERM(CURRENT)USE OF ANTIPLATELET/AN 02/10/2016 BOBBI LEWIS MD, Ot V58.69 OTH MED,LT,CURRENT USE 02/10/2016 DANIELLA GONZALEZ DO Ot V76.12 OTH SCREEN MAMMO-MALIGN NEOPLASM OF [place] 02/10/2016 KATHRIN MCGUIRE Ot 250.00 DIAB GUILLERMO WO COMPL, TYPE II OR UNSPEC TY 02/10/2016 KATHRIN MCGUIRE Ot 272.4 HYPERLIPIDEMIA NEC/NOS 02/10/2016 KATHRIN MCGUIRE Ot 414.9 CHR ISCHEMIC HRT DIS NOS 02/10/2016 KATHRIN MCGUIRE Ot 427.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 NEC 02/10/2016 KATHRIN MCGUIRE Ot 250.00 DIAB GUILLERMO WO COMPL, TYPE II OR UNSPEC TY 02/10/2016 KATHRIN MCGUIRE Ot 272.4 HYPERLIPIDEMIA NEC/NOS 02/10/2016 KATHRIN MCGUIRE Ot 414.00 CORON ATHEROSCLER NOS TYPE VESSEL, NATIV 02/10/2016 KATHRIN MCGUIRE Ot 427.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 NEC 02/10/2016 DANIELLA GONZALEZ DO Ot 244.9 HYPOTHYROIDISM NOS 02/10/2016 DANIELLA GONZALEZ DO Ot 250.00 DIAB GUILLERMO WO COMPL, TYPE II OR UNSPEC TY 02/10/2016 GELLENDANIELLA TORRES DO Ot 250.00 DIAB GUILLERMO WO COMPL, TYPE II OR UNSPEC TY 02/10/2016 DANIELLA GONZALEZ DO Ot 780.2 SYNCOPE AND COLLAPSE 02/10/2016 Ot R53.83 OTHER FATIGUE 02/10/2016 DANIELLA GONZALEZ DO Ot E03.9 HYPOTHYROIDISM, UNSPECIFIED 02/10/2016 DANIELLA GONZALEZ DO Ot I10 ESSENTIAL (PRIMARY) HYPERTENSION 02/10/2016 LISA DO, DANIELLA Bradford Ot R05 COUGH 02/10/2016 PJLENDER DO, DANIELLA Suzette Ot R06.02 SHORTNESS OF BREATH 02/10/2016 LISA DO, DANIELLA Bradford Ot R53.83 OTHER FATIGUE 02/10/2016 BOBBI LEWIS MD Ot E78.2 MIXED HYPERLIPIDEMIA 02/10/2016 BOBBI LEWIS MD Ot I10 ESSENTIAL (PRIMARY) HYPERTENSION 02/10/2016 BOBBI LEWIS MD Ot I25.10 ATHSCL HEART DISEASE OF [place] CORONARY 02/10/2016 JOSHUA ROJO, BOBBI Olivera Ot R06.02 SHORTNESS OF BREATH 02/10/2016 BOBBI LEWIS MD Ot R07.89 OTHER CHEST PAIN 02/10/2016 LISA MALDONADO, DANIELLA Bradford Ot E03.9 HYPOTHYROIDISM, UNSPECIFIED 02/10/2016 LISA MALDONADO, DANIELLA Bradford Ot E78.5 HYPERLIPIDEMIA, UNSPECIFIED 02/10/2016 LISA MALDONADO, DANIELLA Suzette Ot E03.9 HYPOTHYROIDISM, UNSPECIFIED 02/10/2016 KATHRIN MCGUIRE Ot E78.2 MIXED HYPERLIPIDEMIA 02/10/2016 KATHRIN MCGUIRE Ot I25.10 ATHSCL HEART DISEASE OF [place] CORONARY 02/10/2016 KATHRIN MCGUIRE Ot E78.2 MIXED HYPERLIPIDEMIA 02/10/2016 KATHRIN MCGUIRE Ot I10 ESSENTIAL (PRIMARY) HYPERTENSION 02/10/2016 KATHRIN MCGUIRE Ot I25.10 ATHSCL HEART DISEASE OF [place] CORONARY 02/10/2016 KATHRIN MCGUIRE Ot R07.89 OTHER CHEST PAIN 02/10/2016 KATHRIN MCGUIRE Ot E78.2 MIXED HYPERLIPIDEMIA 02/10/2016 KATHRIN MCGUIRE Ot I10 ESSENTIAL (PRIMARY) HYPERTENSION 02/10/2016 KATHRIN MCGUIRE Ot I25.10 ATHSCL HEART DISEASE OF [place] CORONARY 02/10/2016 KATHRIN MCGUIRE Ot R07.89 OTHER CHEST PAIN 02/10/2016 LISA MALDONADO, DANIELLA Suzette Ot Z12.31 ENCNTR SCREEN MAMMOGRAM FOR MALIGNANT NE 02/13/2016 KATHRIN MCGUIRE Ot E78.2 MIXED HYPERLIPIDEMIA 02/13/2016 KATHRIN MCGUIRE Ot I10 ESSENTIAL (PRIMARY) HYPERTENSION 02/13/2016 KATHRIN MCGUIRE Ot I25.10 ATHSCL HEART DISEASE OF [place] CORONARY 02/13/2016 KATHRIN MCGUIRE Ot R07.89 OTHER CHEST PAIN 02/22/2016 KATHRIN MCGUIRE Ot E78.2 MIXED HYPERLIPIDEMIA 02/22/2016 KATHRIN MCGUIRE K Ot I10 ESSENTIAL (PRIMARY) HYPERTENSION 02/22/2016 KATHRIN MCGUIRE Ot I25.10 ATHSCL HEART DISEASE OF [place] CORONARY 02/22/2016 KATHRIN MCGUIRE Ot R07.89 OTHER CHEST PAIN 03/07/2016 BING LAM MD Ot E11.9 TYPE 2 DIABETES MELLITUS WITHOUT COMPLIC 03/07/2016 BING LAM MD Ot L30.9 DERMATITIS, UNSPECIFIED 03/07/2016 BING LAM MD Ot R19.7 DIARRHEA, UNSPECIFIED 03/07/2016 BING LAM MD Ot R42 DIZZINESS AND GIDDINESS 03/07/2016 BING LAM MD Ot Z79.82 SNF (CURRENT) USE OF ASPIRIN 03/07/2016 BING LAM MD Ot Z79.84 BO[employer]ER [employer]IC (CURRENT) USE OF ORAL HYPOGLYC 03/07/2016 BING LAM MD T Ot Z79.899 OTHER SNF (CURRENT) DRUG THERAPY 04/05/2016 DOLORES CRUZ Ot B35.4 TINEA CORPORIS 04/05/2016 DOLORES CRUZ Ot E11.9 TYPE 2 DIABETES MELLITUS WITHOUT COMPLIC 04/05/2016 DOLORES CRUZ Ot I10 ESSENTIAL (PRIMARY) HYPERTENSION 04/05/2016 DOLORES CRUZ Ot L30.9 DERMATITIS, UNSPECIFIED 04/05/2016 DOLORES CRUZ Ot R21 RASH AND OTHER NONSPECIFIC SKIN ERUPTION 04/05/2016 DOLORES CRUZ Ot Z79.82 SNF (CURRENT) USE OF ASPIRIN 04/05/2016 DOLORES CRUZ Ot Z79.899 OTHER SNF (CURRENT) DRUG THERAPY 04/06/2016 DOLORES CRUZ Ot B35.4 TINEA CORPORIS 04/06/2016 DOLORES CRUZ Ot E11.9 TYPE 2 DIABETES MELLITUS WITHOUT COMPLIC 04/06/2016 DOLORES CRUZ Ot I10 ESSENTIAL (PRIMARY) HYPERTENSION 04/06/2016 DOLORES CRUZ Ot L30.9 DERMATITIS, UNSPECIFIED 04/06/2016 DOLORES CRUZ Ot R21 RASH AND OTHER NONSPECIFIC SKIN ERUPTION 04/06/2016 DOLORES CRUZ Ot 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 04/06/2016 DOLORES CRUZ Ot Z79.899 OTHER BOILER MECHANIC (CURRENT) DRUG THERAPY 05/02/2016 DOLORES CRUZ Ot E11.9 TYPE 2 DIABETES MELLITUS WITHOUT COMPLIC 05/02/2016 DOLORES CRUZ Ot I10 ESSENTIAL (PRIMARY) HYPERTENSION 05/02/2016 DOLORES CRUZ Ot L50.9 URTICARIA, UNSPECIFIED 05/02/2016 DOLORES CRUZ Ot R21 RASH AND OTHER NONSPECIFIC SKIN ERUPTION 05/02/2016 DOLORES CRUZ Ot R42 DIZZINESS AND GIDDINESS 05/02/2016 DOLORES CRUZ Ot T37.0X5A ADVERSE EFFECT OF SULFONAMIDES, INITIAL 05/02/2016 DOLORES CRUZ Ot Z79.82 SNF (CURRENT) USE OF ASPIRIN 05/02/2016 DOLORES CRUZ Ot Z79.84 SNF (CURRENT) USE OF ORAL HYPOGLYC 05/02/2016 DOLORES CRUZ Ot Z79.899 OTHER SNF (CURRENT) DRUG THERAPY 05/02/2016 DOLORES CRUZ Ot Z95.5 PRESENCE OF CORONARY ANGIOPLASTY IMPLANT 06/18/2016 KATHRIN MCGUIRE Ot E78.2 MIXED HYPERLIPIDEMIA 06/27/2016 BOBBI LEWIS MD Ot E03.9 HYPOTHYROIDISM, UNSPECIFIED 06/27/2016 BOBBI LEWIS MD Ot E11.9 TYPE 2 DIABETES MELLITUS WITHOUT COMPLIC 06/27/2016 BOBBI LEWIS MD Ot E66.9 OBESITY, UNSPECIFIED 06/27/2016 BOBBI LEWIS MD Ot E78.5 HYPERLIPIDEMIA, UNSPECIFIED 06/27/2016 BOBBI LEWIS MD, Ot I10 ESSENTIAL (PRIMARY) HYPERTENSION 06/27/2016 BOBBI LEWIS MD Ot I25.10 ATHSCL HEART DISEASE OF [place] CORONARY 06/27/2016 BOBBI LEWIS MD Ot 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 DEPOLARIZATION 06/27/2016 BOBBI LEWIS MD Ot R07.89 OTHER CHEST PAIN 06/27/2016 BOBBI LEWIS MD, Ot Z68.32 BODY MASS INDEX (BMI) 32.0-32.9, ADULT 06/27/2016 BOBBI LEWIS MD, Ot Z79.899 OTHER SNF (CURRENT) DRUG THERAPY 06/27/2016 BOBBI LEWIS MD, Ot Z86.73 PRSNL HX OF TIA (TIA), AND CEREB INFRC W 06/27/2016 BOBBI LEWIS MD, Ot Z87.891 PERSONAL HISTORY OF NICOTINE DEPENDENCE 06/27/2016 BOBBI LEWIS MD Ot Z95.5 PRESENCE OF CORONARY ANGIOPLASTY IMPLANT 07/03/2016 KATHRIN MCGUIRE Ot E78.2 MIXED HYPERLIPIDEMIA 07/21/2016 MEKHI VIEYRA MD, Ot M54.5 LOW BACK PAIN 07/21/2016 MEKHI VIEYRA MD Ot Z53.21 PROC/TRTMT NOT CRD OUT D/T PT LV BEF SEE 07/21/2016 ABEBA OBRIEN APRN Ot E11.9 TYPE 2 DIABETES MELLITUS WITHOUT COMPLIC 07/21/2016 ABEBA OBRIEN APRN Ot F17.210 NICOTINE DEPENDENCE, CIGARETTES, UNCOMPL 07/21/2016 ABEBA OBRIEN APRN Ot G89.29 OTHER CHRONIC PAIN 07/21/2016 ABEBA OBRIEN APRN Ot I10 ESSENTIAL (PRIMARY) HYPERTENSION 07/21/2016 ABEBA OBRIEN APRN Ot I25.10 ATHSCL HEART DISEASE OF [place] CORONARY 07/21/2016 ABEBA OBRIEN APRN Ot 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 WITH RADICULOPATHY, CE 07/21/2016 ABEBA OBRIEN APRN Ot M54.5 LOW BACK PAIN 07/21/2016 ABEBA OBRIEN APRN Ot Z95.5 PRESENCE OF CORONARY ANGIOPLASTY IMPLANT 07/23/2016 ABEBA OBRIEN APRN Ot E11.9 TYPE 2 DIABETES MELLITUS WITHOUT COMPLIC 07/23/2016 ABEBA OBRIEN APRN Ot F17.210 NICOTINE DEPENDENCE, CIGARETTES, UNCOMPL 07/23/2016 ABEBA OBRIEN APRN Ot G89.29 OTHER CHRONIC PAIN 07/23/2016 ABEBA OBRIEN APRN Ot I10 ESSENTIAL (PRIMARY) HYPERTENSION 07/23/2016 ABEBA OBRIEN APRN Ot I25.10 ATHSCL HEART DISEASE OF [place] CORONARY 07/23/2016 ABEBA OBRIEN APRN Ot 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 WITH RADICULOPATHY, CE 07/23/2016 ABEBA OBRIEN APRN Ot M54.5 LOW BACK PAIN 07/23/2016 ABEBA OBRIEN APRN Ot Z95.5 PRESENCE OF CORONARY ANGIOPLASTY IMPLANT 07/24/2016 MEKHI VIEYRA MD Ot M54.5 LOW BACK PAIN 07/24/2016 MEKHI VIEYRA MD Ot Z53.21 PROC/TRTMT NOT CRD OUT D/T PT LV BEF SEE 07/27/2016 MEKHI VIEYRA MD Ot M54.5 LOW BACK PAIN 07/27/2016 MEKHI VIEYRA MD Ot Z53.21 PROC/TRTMT NOT CRD OUT D/T PT LV BEF SEE 08/01/2016 ABEBA OBRIEN APRN Ot E11.9 TYPE 2 DIABETES MELLITUS WITHOUT COMPLIC 08/01/2016 ABEBA OBRIEN APRN Ot F17.210 NICOTINE DEPENDENCE, CIGARETTES, UNCOMPL 08/01/2016 ABEBA OBRIEN APRN Ot G89.29 OTHER CHRONIC PAIN 08/01/2016 ABEBA OBRIEN APRN Ot I10 ESSENTIAL (PRIMARY) HYPERTENSION 08/01/2016 ABEBA OBRINE APRN Ot I25.10 ATHSCL HEART DISEASE OF [place] CORONARY 08/01/2016 ABEBA OBRIEN APRN Ot 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 WITH RADICULOPATHY, CE 08/01/2016 ABEBA OBRIEN APRN Ot M54.5 LOW BACK PAIN 08/01/2016 ABEBA OBRIEN APRN Ot Z95.5 PRESENCE OF CORONARY ANGIOPLASTY IMPLANT 09/14/2016 SAKSHI TIDWELL Ot 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 WITH RADICULOPATHY, CE 10/14/2016 TANJA SANDOVAL MD A Ot E03.9 HYPOTHYROIDISM, UNSPECIFIED 10/14/2016 TANJA SANDOVAL MD A Ot E11.9 TYPE 2 DIABETES MELLITUS WITHOUT COMPLIC 10/14/2016 TANJA SANDOVAL MD A Ot E78.00 PURE HYPERCHOLESTEROLEMIA, UNSPECIFIED 10/14/2016 TANJA SANDOVAL MD A Ot E83.42 HYPOMAGNESEMIA 10/14/2016 TANJA SANDOVAL MD A Ot E83.52 HYPERCALCEMIA 10/14/2016 TANJA SANDOVAL MD A Ot E87.6 HYPOKALEMIA 10/14/2016 TANJA SANDOVAL MD A Ot I10 ESSENTIAL (PRIMARY) HYPERTENSION 10/14/2016 TANJA SANDOVAL MD A Ot I25.10 ATHSCL HEART DISEASE OF [place] CORONARY 10/14/2016 TANJA SANDOVAL MD A Ot R20.0 ANESTHESIA OF SKIN 10/14/2016 TANJA SANDOVAL MD Ot 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 10/14/2016 TANJA SANDOVAL MD A Ot Z86.73 PRSNL HX OF TIA (TIA), AND CEREB INFRC W 10/14/2016 TANJA SANDOVAL MD A Ot Z87.891 PERSONAL HISTORY OF NICOTINE DEPENDENCE 10/14/2016 TANJA SANDOVAL MD A Ot Z95.5 PRESENCE OF CORONARY ANGIOPLASTY IMPLANT 10/17/2016 TANJA SANDOVAL MD A Ot E03.9 HYPOTHYROIDISM, UNSPECIFIED 10/17/2016 TANJA SANDOVAL MD A Ot E11.9 TYPE 2 DIABETES MELLITUS WITHOUT COMPLIC 10/17/2016 TANJA SANDOVAL MD Ot E78.00 PURE HYPERCHOLESTEROLEMIA, UNSPECIFIED 10/17/2016 TANJA SANDOVAL MD A Ot E83.42 HYPOMAGNESEMIA 10/17/2016 TANJA SANDOVAL MD A Ot E83.52 HYPERCALCEMIA 10/17/2016 TANJA SANDOVAL MD A Ot E87.6 HYPOKALEMIA 10/17/2016 TANJA SANDOVAL MD A Ot I10 ESSENTIAL (PRIMARY) HYPERTENSION 10/17/2016 TANJA SANDOVAL MD A Ot I25.10 ATHSCL HEART DISEASE OF [place] CORONARY 10/17/2016 TANJA SANDOVAL MD A Ot R20.0 ANESTHESIA OF SKIN 10/17/2016 TANJA SANDOVAL MD A Ot 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 10/17/2016 TANJA SANDOVAL MD Ot Z86.73 PRSNL HX OF TIA (TIA), AND CEREB INFRC W 10/17/2016 TANJA SANDOVAL MD Ot Z87.891 PERSONAL HISTORY OF NICOTINE DEPENDENCE 10/17/2016 TANJA SANDOVAL MD Ot Z95.5 PRESENCE OF CORONARY ANGIOPLASTY IMPLANT 10/31/2016 MADLSAKSHI DIRECTOR OPERATING Ot I65.22 OCCLUSION AND STENOSIS OF LEFT CAROTID A 11/19/2016 MADLSAKSHI L DIRECTOR OPERATING Ot I65.22 OCCLUSION AND STENOSIS OF LEFT CAROTID A 03/12/2017 MADL, SAKSHI Hernandez DIRECTOR OPERATING Ot Z12.31 ENCNTR SCREEN MAMMOGRAM FOR MALIGNANT NE 03/27/2017 MADLSAKSHI DIRECTOR OPERATING Ot Z12.31 ENCNTR SCREEN MAMMOGRAM FOR MALIGNANT NE 04/10/2017 Ot V76.12 OTH SCREEN MAMMO-MALIGN NEOPLASM OF [place] 04/10/2017 Ot 272.4 HYPERLIPIDEMIA NEC/NOS 04/10/2017 Ot 401.9 HYPERTENSION NOS 04/10/2017 Ot 414.00 CORON ATHEROSCLER NOS TYPE VESSEL, NATIV 04/10/2017 Ot V58.69 OTH MED,LT, CURRENT USE 04/10/2017 Ot V72.84 EXAM PRE- OPERATIVE NOS 04/10/2017 Ot 427.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 NEC 04/10/2017 DANIELLA GONZALEZ DO Ot V76.12 OTH SCREEN MAMMO-MALIGN NEOPLASM OF [place] 04/10/2017 BOBBI LEWIS MD Ot 250.00 DIAB GUILLERMO WO COMPL, TYPE II OR UNSPEC TY 04/10/2017 BOBBI LEWIS MD Ot 272.4 HYPERLIPIDEMIA NEC/NOS 04/10/2017 BOBBI LEWIS MD Ot 401.9 HYPERTENSION NOS 04/10/2017 BOBBI LEWIS MD Ot 414.00 CORON ATHEROSCLER NOS TYPE VESSEL, NATIV 04/10/2017 BOBBI LEWIS MD Ot 780.4 DIZZINESS AND GIDDINESS 04/10/2017 BOBBI LEWIS MD Ot 786.50 CHEST PAIN NOS 04/10/2017 BOBBI LEWIS MD Ot 250.00 DIAB GUILLERMO WO COMPL, TYPE II OR UNSPEC TY 04/10/2017 BOBBI LEWIS MD Ot 272.4 HYPERLIPIDEMIA NEC/NOS 04/10/2017 BOBBI LEWIS MD Ot 401.9 HYPERTENSION NOS 04/10/2017 BOBBI LEWIS MD Ot 414.00 CORON ATHEROSCLER NOS TYPE VESSEL, NATIV 04/10/2017 BOBBI LEWIS MD Ot 786.50 CHEST PAIN NOS 04/10/2017 NAKITA ROJO, RENATO Conley Ot 433.10 CAROTID ARTERY OCCLUSION W O CEREBRAL IN 04/10/2017 RENATO MACE MD Ot V72.84 EXAM PRE-OPERATIVE NOS 04/10/2017 NAKITA ROJO, RENATO Conley Ot V74.8 SCREEN-BACTERIAL DIS NEC 04/10/2017 DANIELLA GONZALEZ DO Ot V76.12 OTH SCREEN MAMMO-MALIGN NEOPLASM OF [place] 04/10/2017 KATHRIN MCGUIRE Ot 272.4 HYPERLIPIDEMIA NEC/NOS 04/10/2017 KATHRIN MCGUIRE Ot 250.00 DIAB GUILLERMO WO COMPL, TYPE II OR UNSPEC TY 04/10/2017 KATHRIN MCGUIRE Ot 272.4 HYPERLIPIDEMIA NEC/NOS 04/10/2017 KATHRIN MCGUIRE Ot 278.00 OBESITY, NOS 04/10/2017 KATHRIN MCGUIRE Ot 401.9 HYPERTENSION NOS 04/10/2017 KATHRIN MCGUIRE Ot 414.00 CORON ATHEROSCLER NOS TYPE VESSEL, NATIV 04/10/2017 KATHRIN MCGUIRE Ot 427.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 NEC 04/10/2017 KATHRIN MCGUIRE Ot 435.9 TRANS CEREB ISCHEMIA NOS 04/10/2017 KATHRIN MCGUIRE Ot 780.2 SYNCOPE AND COLLAPSE 04/10/2017 DANIELLA GONZALEZ DO Ot 250.00 DIAB GUILLERMO WO COMPL, TYPE II OR UNSPEC TY 04/10/2017 DANIELLA GONZALEZ DO Ot 414.01 CORONARY ATHEROSCLEROSIS OF [place] CORON 04/10/2017 BOBBI LEWIS MD Ot 244.9 HYPOTHYROIDISM NOS 04/10/2017 BOBBI LEWIS MD Ot 250.00 DIAB GUILLERMO WO COMPL, TYPE II OR UNSPEC TY 04/10/2017 BOBBI LEWIS MD Ot 401.9 HYPERTENSION NOS 04/10/2017 BOBBI LEWIS MD Ot 414.00 CORON ATHEROSCLER NOS TYPE VESSEL, NATIV 04/10/2017 BOBBI LEWIS MD Ot 427.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 NEC 04/10/2017 BOBBI LEWIS MD Ot 433.10 CAROTID ARTERY OCCLUSION W O CEREBRAL IN 04/10/2017 BOBBI LEWIS MD Ot 435.9 TRANS CEREB ISCHEMIA NOS 04/10/2017 BOBBI LEWIS MD Ot 780.2 SYNCOPE AND COLLAPSE 04/10/2017 BOBBI LEWIS MD Ot V58.63 LONG-TERM(CURRENT)USE OF ANTIPLATELET/AN 04/10/2017 BOBBI LEWIS MD Ot V58.69 OTH MED,LT,CURRENT USE 04/10/2017 DANIELLA GONZALEZ DO Ot V76.12 OTH SCREEN MAMMO-MALIGN NEOPLASM OF [place] 04/10/2017 KATHRIN MCGUIRE Ot 250.00 DIAB GUILLERMO WO COMPL, TYPE II OR UNSPEC TY 04/10/2017 KATHRIN MCGUIRE Ot 272.4 HYPERLIPIDEMIA NEC/NOS 04/10/2017 KATHRIN MCGUIRE Ot 414.9 CHR ISCHEMIC HRT DIS NOS 04/10/2017 KATHRIN MCGUIRE Ot 427.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 NEC 04/10/2017 KATHRIN MCGUIRE Ot 250.00 DIAB GUILLERMO WO COMPL, TYPE II OR UNSPEC TY 04/10/2017 KATHRIN MCGUIRE Ot 272.4 HYPERLIPIDEMIA NEC/NOS 04/10/2017 KATHRIN MCGUIRE Ot 414.00 CORON ATHEROSCLER NOS TYPE VESSEL, NATIV 04/10/2017 KATHRIN MCGUIRE Ot 427.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 NEC 04/10/2017 DANIELLA GONZALEZ DO Ot 244.9 HYPOTHYROIDISM NOS 04/10/2017 DANIELLA GONZALEZ DO Ot 250.00 DIAB GUILLERMO WO COMPL, TYPE II OR UNSPEC TY 04/10/2017 DANIELLA GONZALEZ DO Ot 250.00 DIAB GUILLERMO WO COMPL, TYPE II OR UNSPEC TY 04/10/2017 DANIELLA GONZALEZ DO Ot 780.2 SYNCOPE AND COLLAPSE 04/10/2017 Ot R53.83 OTHER FATIGUE 04/10/2017 DANIELLA GONZALEZ DO Ot E03.9 HYPOTHYROIDISM, UNSPECIFIED 04/10/2017 DANIELLA GONZALEZ DO Ot I10 ESSENTIAL (PRIMARY) HYPERTENSION 04/10/2017 LISA MALDONADO, DANIELLA Suzette Ot R05 COUGH 04/10/2017 LISA MALDONADO, DANIELLA Bradford Ot R06.02 SHORTNESS OF BREATH 04/10/2017 DANIELLA GONZALEZ DO Ot R53.83 OTHER FATIGUE 04/10/2017 BOBBI LEWIS MD Ot E78.2 MIXED HYPERLIPIDEMIA 04/10/2017 BOBBI LEWIS MD Ot I10 ESSENTIAL (PRIMARY) HYPERTENSION 04/10/2017 BOBBI LEWIS MD Ot I25.10 ATHSCL HEART DISEASE OF [place] CORONARY 04/10/2017 BOBBI LEWIS MD Ot R06.02 SHORTNESS OF BREATH 04/10/2017 BOBBI LEWIS MD Ot R07.89 OTHER CHEST PAIN 04/10/2017 DANIELLA GONZALEZ DO Ot E03.9 HYPOTHYROIDISM, UNSPECIFIED 04/10/2017 LISA MALDONADO DANIELLA Bradford Ot E78.5 HYPERLIPIDEMIA, UNSPECIFIED 04/10/2017 LISA MALDONADO DANIELLA Bradford Ot E03.9 HYPOTHYROIDISM, UNSPECIFIED 04/10/2017 KATHRIN MCGUIRE Ot E78.2 MIXED HYPERLIPIDEMIA 04/10/2017 KATHRIN MCGUIRE Ot I25.10 ATHSCL HEART DISEASE OF [place] CORONARY 04/10/2017 KATHRIN MCGUIRE Ot E78.2 MIXED HYPERLIPIDEMIA 04/10/2017 KATHRIN MCGUIRE Ot I10 ESSENTIAL (PRIMARY) HYPERTENSION 04/10/2017 KATHRIN MCGUIRE Ot I25.10 ATHSCL HEART DISEASE OF [place] CORONARY 04/10/2017 KATHRIN MCGUIRE Ot R07.89 OTHER CHEST PAIN 04/10/2017 KATHRIN MCGUIRE Ot E78.2 MIXED HYPERLIPIDEMIA 04/10/2017 KATHRIN MCGUIRE Ot I10 ESSENTIAL (PRIMARY) HYPERTENSION 04/10/2017 KATHRIN MCGUIRE Ot I25.10 ATHSCL HEART DISEASE OF [place] CORONARY 04/10/2017 KATHRIN MCGUIRE Ot R07.89 OTHER CHEST PAIN 04/10/2017 DANIELLA GONZALEZ DO Ot Z12.31 ENCNTR SCREEN MAMMOGRAM FOR MALIGNANT NE 04/10/2017 KATHRIN MCGUIRE Ot E78.2 MIXED HYPERLIPIDEMIA 04/10/2017 YAW SAKSHI Hernandez DIRECTOR OPERATING Ot 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 WITH RADICULOPATHY, CE 04/10/2017 MADMary SAKSHI Hernandez DIRECTOR OPERATING Ot I65.22 OCCLUSION AND STENOSIS OF LEFT CAROTID A 04/10/2017 DEEPIKA TIDWELLSuzette Hernandez DIRECTOR OPERATING Ot Z12.31 ENCNTR SCREEN MAMMOGRAM FOR MALIGNANT NE 05/03/2017 SAKSHI TIDWELL DIRECTOR OPERATING Ot I77.9 DISORDER OF ARTERIES AND ARTERIOLES, UNS 05/03/2017 DEEPIKA TIDWELLSuzette Hernandez DIRECTOR OPERATING Ot Z98.890 OTHER SPECIFIED POSTPROCEDURAL STATES 07/26/2017 BING LAM MD Ot E03.9 HYPOTHYROIDISM, UNSPECIFIED 07/26/2017 BING LAM MD Ot E11.9 TYPE 2 DIABETES MELLITUS WITHOUT COMPLIC 07/26/2017 BING LAM MD Ot E78.00 PURE HYPERCHOLESTEROLEMIA, UNSPECIFIED 07/26/2017 BING LAM MD Ot I10 ESSENTIAL (PRIMARY) HYPERTENSION 07/26/2017 BING LAM MD Ot I25.10 ATHSCL HEART DISEASE OF [place] CORONARY 07/26/2017 BING LAM MD Ot L30.9 DERMATITIS, UNSPECIFIED 07/26/2017 BING LAM MD Ot R20.2 PARESTHESIA OF SKIN 07/26/2017 BING LAM MD Ot R21 RASH AND OTHER NONSPECIFIC SKIN ERUPTION 07/26/2017 BING LAM MD, Ot Z79.52 BOILER MECHANIC (CURRENT) USE OF SYSTEMIC STER 07/26/2017 BING LAM MD Ot 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 07/26/2017 BING LAM MD, Ot Z86.73 PRSNL HX OF TIA (TIA), AND CEREB INFRC W 07/26/2017 BING LAM MD, Ot Z86.79 PERSONAL HISTORY OF OTHER DISEASES OF 07/26/2017 BING LAM MD, Ot Z87.19 PERSONAL HISTORY OF OTHER DISEASES OF 07/26/2017 BING LAM MD Ot Z87.891 PERSONAL HISTORY OF NICOTINE DEPENDENCE 07/26/2017 BING LAM MD Ot Z90.89 ACQUIRED ABSENCE OF OTHER ORGANS 07/26/2017 BING LAM MD Ot Z95.5 PRESENCE OF CORONARY ANGIOPLASTY IMPLANT 07/29/2017 BING LAM MD Ot E03.9 HYPOTHYROIDISM, UNSPECIFIED 07/29/2017 BING LAM MD Ot E11.9 TYPE 2 DIABETES MELLITUS WITHOUT COMPLIC 07/29/2017 BING LAM MD Ot E78.00 PURE HYPERCHOLESTEROLEMIA, UNSPECIFIED 07/29/2017 BING LAM MD Ot I10 ESSENTIAL (PRIMARY) HYPERTENSION 07/29/2017 BING LAM MD Ot I25.10 ATHSCL HEART DISEASE OF [place] CORONARY 07/29/2017 BING LAM MD Ot L30.9 DERMATITIS, UNSPECIFIED 07/29/2017 BING LAM MD, Ot R20.2 PARESTHESIA OF SKIN 07/29/2017 BING LAM MD Ot R21 RASH AND OTHER NONSPECIFIC SKIN ERUPTION 07/29/2017 BING LAM MD Ot Z79.52 SNF (CURRENT) USE OF SYSTEMIC STER 07/29/2017 BING LAM MD Ot 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 07/29/2017 BING LAM MD Ot Z86.73 PRSNL HX OF TIA (TIA), AND CEREB INFRC W 07/29/2017 BING LAM MD Ot Z86.79 PERSONAL HISTORY OF OTHER DISEASES OF 07/29/2017 BING LAM MD Ot Z87.19 PERSONAL HISTORY OF OTHER DISEASES OF 07/29/2017 BING LAM MD Ot Z87.891 PERSONAL HISTORY OF NICOTINE DEPENDENCE 07/29/2017 BING LAM MD Ot Z90.89 ACQUIRED ABSENCE OF OTHER ORGANS 07/29/2017 BING LAM MD Ot Z95.5 PRESENCE OF CORONARY ANGIOPLASTY IMPLANT 11/26/2017 Ot 427.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 NEC 11/26/2017 DANIELLA GONZALEZ DO Ot V76.12 OTH SCREEN MAMMO-MALIGN NEOPLASM OF [place] 11/26/2017 BOBBI LEWIS MD Ot 250.00 DIAB GUILLERMO WO COMPL, TYPE II OR UNSPEC TY 11/26/2017 BOBBI LEWIS MD Ot 272.4 HYPERLIPIDEMIA NEC/NOS 11/26/2017 BOBBI LEWIS MD Ot 401.9 HYPERTENSION NOS 11/26/2017 BOBBI LEWIS MD Ot 414.00 CORON ATHEROSCLER NOS TYPE VESSEL, NATIV 11/26/2017 BOBBI LEWIS MD Ot 780.4 DIZZINESS AND GIDDINESS 11/26/2017 BOBBI LEWIS MD Ot 786.50 CHEST PAIN NOS 11/26/2017 BOBBI LEWIS MD Ot 250.00 DIAB GUILLERMO WO COMPL, TYPE II OR UNSPEC TY 11/26/2017 BOBBI LEWIS MD Ot 272.4 HYPERLIPIDEMIA NEC/NOS 11/26/2017 BOBBI LEWIS MD Ot 401.9 HYPERTENSION NOS 11/26/2017 BOBBI LEWIS MD Ot 414.00 CORON ATHEROSCLER NOS TYPE VESSEL, NATIV 11/26/2017 BOBBI LEWIS MD Ot 786.50 CHEST PAIN NOS 11/26/2017 NAKITA ROJO, RENATO Conley Ot 433.10 CAROTID ARTERY OCCLUSION W O CEREBRAL IN 11/26/2017 NAKITA ROJO, RENATO Conley Ot V72.84 EXAM PRE-OPERATIVE NOS 11/26/2017 RENATO MACE MD Ot V74.8 SCREEN-BACTERIAL DIS NEC 11/26/2017 DANIELLA GONZALEZ DO Ot V76.12 OTH SCREEN MAMMO-MALIGN NEOPLASM OF [place] 11/26/2017 KATHRIN MCGUIRE Ot 272.4 HYPERLIPIDEMIA NEC/NOS 11/26/2017 KATHRIN MCGUIRE Ot 250.00 DIAB GUILLERMO WO COMPL, TYPE II OR UNSPEC TY 11/26/2017 KATHRIN MCGUIRE Ot 272.4 HYPERLIPIDEMIA NEC/NOS 11/26/2017 KATHRIN MCGUIRE Ot 278.00 OBESITY, NOS 11/26/2017 KATHRIN MCGUIRE Ot 401.9 HYPERTENSION NOS 11/26/2017 KATHRIN MCGUIRE Ot 414.00 CORON ATHEROSCLER NOS TYPE VESSEL, NATIV 11/26/2017 KATHRIN MCGUIRE Ot 427.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 NEC 11/26/2017 KATHRIN MCGUIRE Ot 435.9 TRANS CEREB ISCHEMIA NOS 11/26/2017 KATHRIN MCGUIRE Ot 780.2 SYNCOPE AND COLLAPSE 11/26/2017 DANIELLA GONZALEZ DO Ot 250.00 DIAB GUILLERMO WO COMPL, TYPE II OR UNSPEC TY 11/26/2017 DANIELLA GONZALEZ DO Ot 414.01 CORONARY ATHEROSCLEROSIS OF [place] CORON 11/26/2017 BOBBI LEWIS MD Ot 244.9 HYPOTHYROIDISM NOS 11/26/2017 BOBBI LEWIS MD Ot 250.00 DIAB GUILLERMO WO COMPL, TYPE II OR UNSPEC TY 11/26/2017 BOBBI LEWIS MD Ot 401.9 HYPERTENSION NOS 11/26/2017 BOBBI LEWIS MD Ot 414.00 CORON ATHEROSCLER NOS TYPE VESSEL, NATIV 11/26/2017 BOBBI LEWIS MD Ot 427.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 NEC 11/26/2017 BOBBI LEWIS MD Ot 433.10 CAROTID ARTERY OCCLUSION W O CEREBRAL IN 11/26/2017 BOBBI LEWIS MD Ot 435.9 TRANS CEREB ISCHEMIA NOS 11/26/2017 BOBBI LEWIS MD Ot 780.2 SYNCOPE AND COLLAPSE 11/26/2017 BOBBI LEWIS MD Ot V58.63 LONG-TERM(CURRENT)USE OF ANTIPLATELET/AN 11/26/2017 BOBBI LEWIS MD, Ot V58.69 OT MED,LT,CURRENT USE 11/26/2017 DANIELLA GONZALEZ DO Ot V76.12 OTH SCREEN MAMMO-MALIGN NEOPLASM OF [place] 11/26/2017 KATHRIN MCGUIRE Ot 250.00 DIAB GUILLERMO WO COMPL, TYPE II OR UNSPEC TY 11/26/2017 KATHRIN MCGUIRE Ot 272.4 HYPERLIPIDEMIA NEC/NOS 11/26/2017 KATHRIN MCGUIRE Ot 414.9 CHR ISCHEMIC HRT DIS NOS 11/26/2017 KATHRIN MCGUIRE Ot 427.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 NEC 11/26/2017 KATHRIN MCGUIRE Ot 250.00 DIAB GUILLERMO WO COMPL, TYPE II OR UNSPEC TY 11/26/2017 KATHRIN MCGUIRE Ot 272.4 HYPERLIPIDEMIA NEC/NOS 11/26/2017 KATHRIN MCGUIRE Ot 414.00 CORON ATHEROSCLER NOS TYPE VESSEL, NATIV 11/26/2017 KATHRIN MCGUIRE Ot 427.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 NEC 11/26/2017 GELLENDER DO, DANIELLA Suzette Ot 244.9 HYPOTHYROIDISM NOS 11/26/2017 GELLENDER DO, DANIELLA Suzette Ot 250.00 DIAB GUILLERMO WO COMPL, TYPE II OR UNSPEC TY 11/26/2017 GELLENDER DO, DANIELLA Suzette Ot 250.00 DIAB GUILLERMO WO COMPL, TYPE II OR UNSPEC TY 11/26/2017 GELLENDER DO, DANIELLA Bradford Ot 780.2 SYNCOPE AND COLLAPSE 11/26/2017 Ot R53.83 OTHER FATIGUE 11/26/2017 GELLENDER DO, DANIELLA Bradford Ot E03.9 HYPOTHYROIDISM, UNSPECIFIED 11/26/2017 GELLENDER DO, DANIELLA Bradford Ot I10 ESSENTIAL (PRIMARY) HYPERTENSION 11/26/2017 GELLENDER DO, DANIELLA Bradford Ot R05 COUGH 11/26/2017 GELLENDER DO, DANIELLA Bradford Ot R06.02 SHORTNESS OF BREATH 11/26/2017 GELLENDER DO, DANIELLA Bradford Ot R53.83 OTHER FATIGUE 11/26/2017 BOBBI LEWIS MD Ot E78.2 MIXED HYPERLIPIDEMIA 11/26/2017 BOBBI LEWIS MD Ot I10 ESSENTIAL (PRIMARY) HYPERTENSION 11/26/2017 BOBBI LEWIS MD Ot I25.10 ATHSCL HEART DISEASE OF [place] CORONARY 11/26/2017 BOBBI LEWIS MD Ot R06.02 SHORTNESS OF BREATH 11/26/2017 BOBBI LEWIS MD Ot R07.89 OTHER CHEST PAIN 11/26/2017 GELLENDER DO, DANIELLA Bradford Ot E03.9 HYPOTHYROIDISM, UNSPECIFIED 11/26/2017 GELLENDER DO, DANIELLA Bradford Ot E78.5 HYPERLIPIDEMIA, UNSPECIFIED 11/26/2017 GELLENDER DO, DANIELLA Bradford Ot E03.9 HYPOTHYROIDISM, UNSPECIFIED 11/26/2017 KATHRIN MCGUIRE Ot E78.2 MIXED HYPERLIPIDEMIA 11/26/2017 KATHRIN MCGUIRE Ot I25.10 ATHSCL HEART DISEASE OF [place] CORONARY 11/26/2017 YEN SHAH KATHRIN K Ot E78.2 MIXED HYPERLIPIDEMIA 11/26/2017 YEN SHAH KATHRIN K Ot I10 ESSENTIAL (PRIMARY) HYPERTENSION 11/26/2017 YEN SHAH KATHRIN Makenna Ot I25.10 ATHSCL HEART DISEASE OF [place] CORONARY 11/26/2017 YEN SHAH KATHRIN K Ot R07.89 OTHER CHEST PAIN 11/26/2017 YEN SHAH KATHRIN K Ot E78.2 MIXED HYPERLIPIDEMIA 11/26/2017 YEN SHAH KATHRIN K Ot I10 ESSENTIAL (PRIMARY) HYPERTENSION 11/26/2017 YEN SHAH KATHRIN K Ot I25.10 ATHSCL HEART DISEASE OF [place] CORONARY 11/26/2017 YEN SHAH KATHRIN K Ot R07.89 OTHER CHEST PAIN 11/26/2017 DANIELLA GONZALEZ DO Ot Z12.31 ENCNTR SCREEN MAMMOGRAM FOR MALIGNANT NE 11/26/2017 YEN SHAH KATHRIN K Ot E78.2 MIXED HYPERLIPIDEMIA 11/26/2017 MADL, SAKSHI L DIRECTOR OPERATING Ot 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 WITH RADICULOPATHY, CE 11/26/2017 MADL, SAKSHI L DIRECTOR OPERATING Ot I65.22 OCCLUSION AND STENOSIS OF LEFT CAROTID A 11/26/2017 MADL, SAKSHI L DIRECTOR OPERATING Ot Z12.31 ENCNTR SCREEN MAMMOGRAM FOR MALIGNANT NE 11/26/2017 MADSERGIO HernandezSAKSHI L DIRECTOR OPERATING Ot I77.9 DISORDER OF ARTERIES AND ARTERIOLES, UNS 11/26/2017 MADL, SAKSHI L DIRECTOR OPERATING Ot Z98.890 OTHER SPECIFIED POSTPROCEDURAL STATES 11/26/2017 BOBBI LEWIS MD Ot E78.2 MIXED HYPERLIPIDEMIA 11/26/2017 BOBBI LEWIS MD Ot I10 ESSENTIAL (PRIMARY) HYPERTENSION 11/26/2017 BOBBI LEWIS MD Ot I25.10 ATHSCL HEART DISEASE OF [place] CORONARY 11/26/2017 BOBBI LEWIS MD Ot R07.89 OTHER CHEST PAIN 11/26/2017 BOBBI LEWIS MD Ot R60.0 LOCALIZED EDEMA 11/28/2017 Ot 427.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 NEC 11/28/2017 DANIELLA GONZALEZ DO Ot V76.12 OTH SCREEN MAMMO-MALIGN NEOPLASM OF [place] 11/28/2017 BOBBI LEWIS MD Ot 250.00 DIAB GUILLERMO WO COMPL, TYPE II OR UNSPEC TY 11/28/2017 BOBBI LEWIS MD Ot 272.4 HYPERLIPIDEMIA NEC/NOS 11/28/2017 BOBBI LEWIS MD Ot 401.9 HYPERTENSION NOS 11/28/2017 BOBBI LEWIS MD Ot 414.00 CORON ATHEROSCLER NOS TYPE VESSEL, NATIV 11/28/2017 BOBBI LEWIS MD Ot 780.4 DIZZINESS AND GIDDINESS 11/28/2017 BOBBI LEWIS MD Ot 786.50 CHEST PAIN NOS 11/28/2017 BOBBI LEWIS MD Ot 250.00 DIAB GUILLERMO WO COMPL, TYPE II OR UNSPEC TY 11/28/2017 BOBBI LEWIS MD Ot 272.4 HYPERLIPIDEMIA NEC/NOS 11/28/2017 BOBBI LEWIS MD Ot 401.9 HYPERTENSION NOS 11/28/2017 BOBBI LEWIS MD Ot 414.00 CORON ATHEROSCLER NOS TYPE VESSEL, NATIV 11/28/2017 BOBBI LEWIS MD Ot 786.50 CHEST PAIN NOS 11/28/2017 NAKITA ROJO, RENATO Conley Ot 433.10 CAROTID ARTERY OCCLUSION W O CEREBRAL IN 11/28/2017 NAKITA ROJO, RENATO Conley Ot V72.84 EXAM PRE-OPERATIVE NOS 11/28/2017 NAKITA ROJO, RENATO Conley Ot V74.8 SCREEN-BACTERIAL DIS NEC 11/28/2017 DANIELLA GONZALEZ DO Ot V76.12 OTH SCREEN MAMMO-MALIGN NEOPLASM OF [place] 11/28/2017 KATHRIN MCGUIRE Ot 272.4 HYPERLIPIDEMIA NEC/NOS 11/28/2017 KATHRIN MCGUIRE Ot 250.00 DIAB GUILLERMO WO COMPL, TYPE II OR UNSPEC TY 11/28/2017 KATHRIN MCGUIRE Ot 272.4 HYPERLIPIDEMIA NEC/NOS 11/28/2017 KATHRIN MCGUIRE Ot 278.00 OBESITY, NOS 11/28/2017 KATHRIN MCGUIRE Ot 401.9 HYPERTENSION NOS 11/28/2017 KATHRIN MCGUIRE Ot 414.00 CORON ATHEROSCLER NOS TYPE VESSEL, NATIV 11/28/2017 KATHRIN MCGUIRE Ot 427.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 NEC 11/28/2017 KATHRIN MCGUIRE Ot 435.9 TRANS CEREB ISCHEMIA NOS 11/28/2017 KATHRIN MCGUIRE Ot 780.2 SYNCOPE AND COLLAPSE 11/28/2017 DANIELLA GONZALEZ DO Ot 250.00 DIAB GUILLERMO WO COMPL, TYPE II OR UNSPEC TY 11/28/2017 DANILELA GONZALEZ DO Ot 414.01 CORONARY ATHEROSCLEROSIS OF [place] CORON 11/28/2017 BOBBI LEWIS MD Ot 244.9 HYPOTHYROIDISM NOS 11/28/2017 BOBBI LEWIS MD Ot 250.00 DIAB GUILLERMO WO COMPL, TYPE II OR UNSPEC TY 11/28/2017 BOBBI LEWIS MD Ot 401.9 HYPERTENSION NOS 11/28/2017 BOBBI LEWIS MD Ot 414.00 CORON ATHEROSCLER NOS TYPE VESSEL, NATIV 11/28/2017 BOBBI LEWIS MD Ot 427.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 NEC 11/28/2017 BOBBI LEWIS MD Ot 433.10 CAROTID ARTERY OCCLUSION W O CEREBRAL IN 11/28/2017 BOBBI LEWIS MD Ot 435.9 TRANS CEREB ISCHEMIA NOS 11/28/2017 BOBBI LEWIS MD Ot 780.2 SYNCOPE AND COLLAPSE 11/28/2017 BOBBI LEWIS MD Ot V58.63 LONG-TERM(CURRENT)USE OF ANTIPLATELET/AN 11/28/2017 BOBBI LEWIS MD Ot V58.69 OTH MED,LT,CURRENT USE 11/28/2017 DANIELLA GONZALEZ DO Ot V76.12 OTH SCREEN MAMMO-MALIGN NEOPLASM OF [place] 11/28/2017 KATHRIN MCGUIRE Ot 250.00 DIAB GUILLERMO WO COMPL, TYPE II OR UNSPEC TY 11/28/2017 KATHRIN MCGUIRE Ot 272.4 HYPERLIPIDEMIA NEC/NOS 11/28/2017 KATHRIN MCGUIRE Ot 414.9 CHR ISCHEMIC HRT DIS NOS 11/28/2017 KATHRIN MCGUIRE Ot 427.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 NEC 11/28/2017 KATHRIN MCGUIRE Ot 250.00 DIAB GUILLERMO WO COMPL, TYPE II OR UNSPEC TY 11/28/2017 KATHRIN MCGUIRE Ot 272.4 HYPERLIPIDEMIA NEC/NOS 11/28/2017 KATHRIN MCGUIRE Ot 414.00 CORON ATHEROSCLER NOS TYPE VESSEL, NATIV 11/28/2017 KATHRIN MCGUIRE Ot 427.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 NEC 11/28/2017 GELLENDER DO, DANIELLA Bradford Ot 244.9 HYPOTHYROIDISM NOS 11/28/2017 GELLENDER DO, DANIELLA Suzette Ot 250.00 DIAB GUILLERMO WO COMPL, TYPE II OR UNSPEC TY 11/28/2017 GELLENDER DO, DANIELLA Suzette Ot 250.00 DIAB GUILLERMO WO COMPL, TYPE II OR UNSPEC TY 11/28/2017 GELLENDER DO, DANIELLA Bradford Ot 780.2 SYNCOPE AND COLLAPSE 11/28/2017 Ot R53.83 OTHER FATIGUE 11/28/2017 GELLENDER DO, DANIELLA Bradford Ot E03.9 HYPOTHYROIDISM, UNSPECIFIED 11/28/2017 GELLENDER DO, DANIELLA Bradford Ot I10 ESSENTIAL (PRIMARY) HYPERTENSION 11/28/2017 GELLENDER DO, DANIELLA Bradford Ot R05 COUGH 11/28/2017 GELLENDER DO, DANIELLA Bradford Ot R06.02 SHORTNESS OF BREATH 11/28/2017 GELLENDER DO, DANIELLA Bradford Ot R53.83 OTHER FATIGUE 11/28/2017 BOBBI LEWIS MD Ot E78.2 MIXED HYPERLIPIDEMIA 11/28/2017 BOBBI LEWIS MD Ot I10 ESSENTIAL (PRIMARY) HYPERTENSION 11/28/2017 BOBBI LEWIS MD Ot I25.10 ATHSCL HEART DISEASE OF [place] CORONARY 11/28/2017 BOBBI LEWIS MD Ot R06.02 SHORTNESS OF BREATH 11/28/2017 BOBBI LEWIS MD Ot R07.89 OTHER CHEST PAIN 11/28/2017 GELLENDER DO, DANIELLA Bradford Ot E03.9 HYPOTHYROIDISM, UNSPECIFIED 11/28/2017 GELLENDER DO, DANIELLA Bradford Ot E78.5 HYPERLIPIDEMIA, UNSPECIFIED 11/28/2017 GELLENDER DO, DANIELLA Bradford Ot E03.9 HYPOTHYROIDISM, UNSPECIFIED 11/28/2017 KATHRIN MCGUIRE Ot E78.2 MIXED HYPERLIPIDEMIA 11/28/2017 KATHRIN MCGUIRE Ot I25.10 ATHSCL HEART DISEASE OF [place] CORONARY 11/28/2017 KATHRIN MCGUIRE Ot E78.2 MIXED HYPERLIPIDEMIA 11/28/2017 KATHRIN MCGUIRE Ot I10 ESSENTIAL (PRIMARY) HYPERTENSION 11/28/2017 KATHRIN MCGUIRE Ot I25.10 ATHSCL HEART DISEASE OF [place] CORONARY 11/28/2017 KATHRIN MCGUIRE Ot R07.89 OTHER CHEST PAIN 11/28/2017 KATHRIN MCGUIRE Ot E78.2 MIXED HYPERLIPIDEMIA 11/28/2017 KATHRIN MCGUIRE Ot I10 ESSENTIAL (PRIMARY) HYPERTENSION 11/28/2017 KATHRIN MCGUIRE Ot I25.10 ATHSCL HEART DISEASE OF [place] CORONARY 11/28/2017 KATHRIN MCGUIRE Ot R07.89 OTHER CHEST PAIN 11/28/2017 DANIELLA GONZALEZ DO Ot Z12.31 ENCNTR SCREEN MAMMOGRAM FOR MALIGNANT NE 11/28/2017 KATHRIN MCGUIRE Ot E78.2 MIXED HYPERLIPIDEMIA 11/28/2017 MADL, SAKSHI L DIRECTOR OPERATING Ot 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 WITH RADICULOPATHY, CE 11/28/2017 MADL, ASKSHI L DIRECTOR OPERATING Ot I65.22 OCCLUSION AND STENOSIS OF LEFT CAROTID A 11/28/2017 MADL, SAKSHI L DIRECTOR OPERATING Ot Z12.31 ENCNTR SCREEN MAMMOGRAM FOR MALIGNANT NE 11/28/2017 MADL, SAKSHI L DIRECTOR OPERATING Ot I77.9 DISORDER OF ARTERIES AND ARTERIOLES, UNS 11/28/2017 MADL, SAKSHI L DIRECTOR OPERATING Ot Z98.890 OTHER SPECIFIED POSTPROCEDURAL STATES 11/28/2017 BOBBI LEWIS MD Ot E78.2 MIXED HYPERLIPIDEMIA 11/28/2017 BOBBI LEWIS MD Ot I10 ESSENTIAL (PRIMARY) HYPERTENSION 11/28/2017 BOBBI LEWIS MD Ot I25.10 ATHSCL HEART DISEASE OF [place] CORONARY 11/28/2017 BOBBI LEWSI MD Ot R07.89 OTHER CHEST PAIN 11/28/2017 BOBBI LEWIS MD Ot R60.0 LOCALIZED EDEMA 11/29/2017 JASIEL KENDRICK APRN Ot Z13.820 ENCOUNTER FOR SCREENING FOR OSTEOPOROSIS 03/05/2018 Ot 427.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 NEC 03/05/2018 DANIELLA GONZALEZ DO Ot V76.12 OTH SCREEN MAMMO-MALIGN NEOPLASM OF [place] 03/05/2018 BOBBI LEWIS MD Ot 250.00 DIAB GUILLERMO WO COMPL, TYPE II OR UNSPEC TY 03/05/2018 BOBBI LEWIS MD Ot 272.4 HYPERLIPIDEMIA NEC/NOS 03/05/2018 BOBBI LEWIS MD Ot 401.9 HYPERTENSION NOS 03/05/2018 BOBBI LEWIS MD Ot 414.00 CORON ATHEROSCLER NOS TYPE VESSEL, NATIV 03/05/2018 BOBBI LEWIS MD Ot 780.4 DIZZINESS AND GIDDINESS 03/05/2018 BOBBI LEWIS MD Ot 786.50 CHEST PAIN NOS 03/05/2018 BOBBI LEWIS MD Ot 250.00 DIAB GUILLERMO WO COMPL, TYPE II OR UNSPEC TY 03/05/2018 BOBBI LEWIS MD Ot 272.4 HYPERLIPIDEMIA NEC/NOS 03/05/2018 BOBBI LEWIS MD Ot 401.9 HYPERTENSION NOS 03/05/2018 BOBBI LEWIS MD Ot 414.00 CORON ATHEROSCLER NOS TYPE VESSEL, NATIV 03/05/2018 BOBBI LEWIS MD Ot 786.50 CHEST PAIN NOS 03/05/2018 RENATO MACE MD Ot 433.10 CAROTID ARTERY OCCLUSION W O CEREBRAL IN 03/05/2018 RENATO MACE MD Ot V72.84 EXAM PRE-OPERATIVE NOS 03/05/2018 RENATO MACE MD Ot V74.8 SCREEN-BACTERIAL DIS NEC 03/05/2018 DANIELLA GONZALEZ DO Ot V76.12 OTH SCREEN MAMMO-MALIGN NEOPLASM OF [place] 03/05/2018 KATHRIN MCGUIRE Ot 272.4 HYPERLIPIDEMIA NEC/NOS 03/05/2018 KATHRIN MCGUIRE Ot 250.00 DIAB GUILLERMO WO COMPL, TYPE II OR UNSPEC TY 03/05/2018 KATHRIN MCGUIRE Ot 272.4 HYPERLIPIDEMIA NEC/NOS 03/05/2018 KATHRIN MCGUIRE Ot 278.00 OBESITY, NOS 03/05/2018 KATHRIN MCGUIRE Ot 401.9 HYPERTENSION NOS 03/05/2018 KATHRIN MCGUIRE Ot 414.00 CORON ATHEROSCLER NOS TYPE VESSEL, NATIV 03/05/2018 KATHRIN MCGUIRE Ot 427.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 NEC 03/05/2018 KATHRIN MCGUIRE Ot 435.9 TRANS CEREB ISCHEMIA NOS 03/05/2018 KATHRIN MCGUIRE Ot 780.2 SYNCOPE AND COLLAPSE 03/05/2018 DANIELLA GONZALEZ DO Ot 250.00 DIAB GUILLERMO WO COMPL, TYPE II OR UNSPEC TY 03/05/2018 DANIELLA GONZALEZ DO Ot 414.01 CORONARY ATHEROSCLEROSIS OF [place] CORON 03/05/2018 BOBBI LEWIS MD Ot 244.9 HYPOTHYROIDISM NOS 03/05/2018 BOBBI LEWIS MD Ot 250.00 DIAB GUILLERMO WO COMPL, TYPE II OR UNSPEC TY 03/05/2018 BOBBI LEWIS MD Ot 401.9 HYPERTENSION NOS 03/05/2018 BOBBI LEWIS MD Ot 414.00 CORON ATHEROSCLER NOS TYPE VESSEL, NATIV 03/05/2018 BOBBI LEWIS MD Ot 427.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 NEC 03/05/2018 BOBBI LEWIS MD Ot 433.10 CAROTID ARTERY OCCLUSION W O CEREBRAL IN 03/05/2018 BOBBI LEWIS MD Ot 435.9 TRANS CEREB ISCHEMIA NOS 03/05/2018 BOBBI LEWIS MD Ot 780.2 SYNCOPE AND COLLAPSE 03/05/2018 BOBBI LEWIS MD Ot V58.63 LONG-TERM(CURRENT)USE OF ANTIPLATELET/AN 03/05/2018 BOBBI LEWIS MD, Ot V58.69 OTH MED,LT,CURRENT USE 03/05/2018 DANIELLA GONZALEZ DO Ot V76.12 OTH SCREEN MAMMO-MALIGN NEOPLASM OF [place] 03/05/2018 KATHRIN MCGUIRE Ot 250.00 DIAB GUILLERMO WO COMPL, TYPE II OR UNSPEC TY 03/05/2018 KATHRIN MCGUIRE Ot 272.4 HYPERLIPIDEMIA NEC/NOS 03/05/2018 KATRHIN MCGUIRE Ot 414.9 CHR ISCHEMIC HRT DIS NOS 03/05/2018 KATHRIN MCGUIRE Ot 427.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 NEC 03/05/2018 KATHRIN MCGUIRE Ot 250.00 DIAB GUILLERMO WO COMPL, TYPE II OR UNSPEC TY 03/05/2018 KATHRIN MCGUIRE Ot 272.4 HYPERLIPIDEMIA NEC/NOS 03/05/2018 KATHRIN MCGUIRE Ot 414.00 CORON ATHEROSCLER NOS TYPE VESSEL, NATIV 03/05/2018 KATHRIN MCGUIRE Ot 427.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 NEC 03/05/2018 PJLENBRIAN DODANIELLA Ot 244.9 HYPOTHYROIDISM NOS 03/05/2018 GELLENDER DO, DANIELLA Bradford Ot 250.00 DIAB GUILLERMO WO COMPL, TYPE II OR UNSPEC TY 03/05/2018 GELLENDER DO, DANILELA Bradford Ot 250.00 DIAB GUILLERMO WO COMPL, TYPE II OR UNSPEC TY 03/05/2018 PJLENDER DODANIELLA Ot 780.2 SYNCOPE AND COLLAPSE 03/05/2018 Ot R53.83 OTHER FATIGUE 03/05/2018 PJSANDRABRIAN DODANIELLA Ot E03.9 HYPOTHYROIDISM, UNSPECIFIED 03/05/2018 GELDANIELLA MEJIA DO Ot I10 ESSENTIAL (PRIMARY) HYPERTENSION 03/05/2018 GELLENDER DODANIELLA Ot R05 COUGH 03/05/2018 GELLENDER DODANIELLA Ot R06.02 SHORTNESS OF BREATH 03/05/2018 GELLENDER DODANIELLA Ot R53.83 OTHER FATIGUE 03/05/2018 JOSHUA ROJO, BOBBI Olivera Ot E78.2 MIXED HYPERLIPIDEMIA 03/05/2018 BOBBI LEWIS MD Ot I10 ESSENTIAL (PRIMARY) HYPERTENSION 03/05/2018 JOSHUA ROJO, BOBBI Olivera Ot I25.10 ATHSCL HEART DISEASE OF [place] CORONARY 03/05/2018 JOSHUA ROJO, BOBBI Olivera Ot R06.02 SHORTNESS OF BREATH 03/05/2018 BOBBI LEWIS MD Ot R07.89 OTHER CHEST PAIN 03/05/2018 JPLENDER DANIELLA MALDONADO Ot E03.9 HYPOTHYROIDISM, UNSPECIFIED 03/05/2018 GELLENDER DODANIELLA Ot E78.5 HYPERLIPIDEMIA, UNSPECIFIED 03/05/2018 GELLENDER DODANIELLA Ot E03.9 HYPOTHYROIDISM, UNSPECIFIED 03/05/2018 KATHRIN MCGUIRE Ot E78.2 MIXED HYPERLIPIDEMIA 03/05/2018 KATHRIN MCGUIRE Ot I25.10 ATHSCL HEART DISEASE OF [place] CORONARY 03/05/2018 YEN SHAH KATHRIN Makenna Ot E78.2 MIXED HYPERLIPIDEMIA 03/05/2018 YEN SHAH KATHRIN Makenna Ot I10 ESSENTIAL (PRIMARY) HYPERTENSION 03/05/2018 YEN SHAH KATHRIN K Ot I25.10 ATHSCL HEART DISEASE OF [place] CORONARY 03/05/2018 SAAVEDRALISE SHAH KATHRIN K Ot R07.89 OTHER CHEST PAIN 03/05/2018 SAAVEDRALISE SHAH KATHRIN Mensah Ot E78.2 MIXED HYPERLIPIDEMIA 03/05/2018 SAAVEDRALISE SHAH KATHRIN Makenna Ot I10 ESSENTIAL (PRIMARY) HYPERTENSION 03/05/2018 SAAVEDRALISE SHAH KATHRIN K Ot I25.10 ATHSCL HEART DISEASE OF [place] CORONARY 03/05/2018 YEN SHAH KATHRIN Makenna Ot R07.89 OTHER CHEST PAIN 03/05/2018 DANIELLA GONZALEZ DO Ot Z12.31 ENCNTR SCREEN MAMMOGRAM FOR MALIGNANT NE 03/05/2018 YEN SHAH KATHRIN K Ot E78.2 MIXED HYPERLIPIDEMIA 03/05/2018 MADL, SAKSHI L DIRECTOR OPERATING Ot 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 WITH RADICULOPATHY, CE 03/05/2018 MADL, SAKSHI L DIRECTOR OPERATING Ot I65.22 OCCLUSION AND STENOSIS OF LEFT CAROTID A 03/05/2018 MADL, SAKSHI L DIRECTOR OPERATING Ot Z12.31 ENCNTR SCREEN MAMMOGRAM FOR MALIGNANT NE 03/05/2018 MADL, SAKSHI L DIRECTOR OPERATING Ot I77.9 DISORDER OF ARTERIES AND ARTERIOLES, UNS 03/05/2018 MADL, SAKSHI L DIRECTOR OPERATING Ot Z98.890 OTHER SPECIFIED POSTPROCEDURAL STATES 03/05/2018 BOBBI LEWIS MD Ot E78.2 MIXED HYPERLIPIDEMIA 03/05/2018 BOBBI LEWIS MD Ot I10 ESSENTIAL (PRIMARY) HYPERTENSION 03/05/2018 BOBBI LEWIS MD Ot I25.10 ATHSCL HEART DISEASE OF [place] CORONARY 03/05/2018 BOBBI LEWIS MD Ot R07.89 OTHER CHEST PAIN 03/05/2018 BOBBI LEWIS MD Ot R60.0 LOCALIZED EDEMA 03/05/2018 JASIEL KENDRICK ORNAMENT SETTER Ot Z13.820 ENCOUNTER FOR SCREENING FOR OSTEOPOROSIS 03/18/2018 JASIEL KENDRICK ORNAMENT SETTER Ot Z12.31 ENCNTR SCREEN MAMMOGRAM FOR MALIGNANT NE 03/23/2018 JASIEL KENDRICK ORNAMENT SETTER Ot Z12.31 ENCNTR SCREEN MAMMOGRAM FOR MALIGNANT NE Procedures Code Description [place] [id number] BIOPSY SKIN LESION 06/05/2012 00.40 PROCEDURE ON SINGLE VESSEL 04/01/2013 38.12 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 04/01/2013 Results Test Result Range CBC With Differential/Platelet - 05/11/16 09:41 WBC 11.2 x10E3/uL 3.4-10.8 RBC 5.02 x10E6/uL 3.77-5.28 Hemoglobin 13.7 g/dL 11.1-15.9 Hematocrit 41.7 % 34.0-46.6 MCV 83 fL 79-97 MCH 27.3 pg 26.6-33.0 MCHC 32.9 g/dL 31.5-35.7 RDW 15.3 % 12.3-15.4 Platelets 267 x10E3/uL 150-379 Neutrophils 44 % Lymphs 41 % Monocytes 10 % Eos 3 % Basos 1 % Neutrophils (Absolute) 5.0 x10E3/uL 1.4-7.0 Lymphs (Absolute) 4.6 x10E3/uL 0.7-3.1 Monocytes(Absolute) 1.1 x10E3/uL 0.1-0.9 Eos (Absolute) 0.3 x10E3/uL 0.0-0.4 Baso (Absolute) 0.1 x10E3/uL 0.0-0.2 Immature Granulocytes 1 % Immature Grans (Abs) 0.1 x10E3/uL 0.0-0.1 Comp. Metabolic Panel (14) - 05/11/16 09:41 Glucose, Serum 89 mg/dL 65-99 BUN 29 mg/dL 8-27 Creatinine, Serum 1.20 mg/dL 0.57-1.00 eGFR If NonAfricn Am 49 mL/min/1.73 >59 eGFR If Africn Am 56 mL/min/1.73 >59 BUN/Creatinine Ratio 24 11-26 Sodium, Serum 145 mmol/L 134-144 Potassium, Serum 4.2 mmol/L 3.5-5.2 Chloride, Serum 101 mmol/L 96-106 Carbon Dioxide, Total 27 mmol/L 18-29 Calcium, Serum 9.9 mg/dL 8.7-10.3 Protein, Total, Serum 6.9 g/dL 6.0-8.5 Albumin, Serum 4.5 g/dL 3.6-4.8 Globulin, Total 2.4 g/dL 1.5-4.5 A/G Ratio 1.9 1.1-2.5 Bilirubin, Total 0.5 mg/dL 0.0-1.2 Alkaline Phosphatase, S 38 IU/L 39-117 AST (SGOT) 15 IU/L 0-40 ALT (SGPT) 11 IU/L 0-32 Lipid Panel - 05/11/16 09:41 Cholesterol, Total 189 mg/dL 100-199 Triglycerides 156 mg/dL 0-149 HDL Cholesterol 64 mg/dL >39 VLDL Cholesterol Joseph 31 mg/dL 5-40 LDL Cholesterol Calc 94 mg/dL 0-99 TSH - 05/11/16 09:41 TSH 3.860 uIU/mL 0.450-4.500 Vitamin D, 25-Hydroxy - 05/11/16 09:41 Vitamin D, 25-Hydroxy 9.2 ng/mL 30.0-100.0 Liver function panel (serum or plasma alk phos, alb, total and direct bili, total protein, ALT, AST) - 06/16/16 12:15 Serum or plasma total bilirubin measurement (mass/volume) 0.4 mg/dL 0.1-1.0 Serum or plasma alkaline phosphatase measurement (enzymatic activity/volume) 48 U/L 40-136 Serum or plasma aspartate aminotransferase measurement (enzymatic activity/ volume) 13 U/L 5-34 Serum or plasma alanine aminotransferase measurement (enzymatic activity/volume ) 13 U/L 0-55 Serum or plasma protein measurement (mass/volume) 6.9 g/dL 6.4-8.2 Serum or plasma albumin measurement (mass/volume) 4.3 g/dL 3.2-4.5 Bilirubin direct 0.1 mg/dL 0.0-0.3 Serum or plasma indirect bilirubin measurement (mass/volume) 0.3 mg/ dL [facility] Lipid 1996 panel - 06/16/16 12:15 Serum or plasma triglyceride measurement (mass/volume) 317 mg/dL <150 Serum or plasma cholesterol measurement (mass/volume) 289 mg/dL < 200 Serum or plasma cholesterol in HDL measurement (mass/volume) 43 mg/ dL 40-60 Cholesterol in LDL [mass/volume] in serum or plasma by direct assay 194 mg/dL 1-129 Serum or plasma cholesterol in VLDL measurement (mass/volume) 63 mg/ dL 5-40 Automated blood complete blood count (hemogram) panel - 06/27/16 09:03 Blood leukocytes automated count (number/volume) 7.6 10*3/uL 4.3-11.0 Blood erythrocytes automated count (number/volume) 4.70 10*6/uL 4.35-5.85 Venous blood hemoglobin measurement (mass/volume) 13.2 g/dL 11.5-16.0 Blood hematocrit (volume fraction) 39 % 35-52 Automated erythrocyte mean corpuscular volume 82 [foz_us] 80-99 Automated erythrocyte mean corpuscular hemoglobin (mass per erythrocyte) 28 pg 25-34 Automated erythrocyte mean corpuscular hemoglobin concentration measurement ( mass/volume) 34 g/dL 32-36 Automated erythrocyte distribution width ratio 15.7 % 10.0-14.5 Automated blood platelet count (count/volume) 250 10*3/uL 130-400 Automated blood platelet mean volume measurement 10.7 [foz_us] 7.4-10.4 PT panel in platelet poor plasma by coagulation assay - 06/27/16 09:03 Prothrombin time (PT) in platelet poor plasma by coagulation assay 11.9 s 12.2-14.7 INR in platelet poor plasma or blood by coagulation assay 0.9 0.8-1.4 Activated partial thromboplastin time (aPTT) in platelet poor plasma bycoagulation assay - 06/27/16 09:03 Activated partial thromboplastin time (aPTT) in platelet poor plasma bycoagulation assay 26 s 24-35 Comprehensive metabolic panel - 06/27/16 09:03 Serum or plasma sodium measurement (moles/volume) 143 mmol/L 135-145 Serum or plasma potassium measurement (moles/volume) 4.0 mmol/L 3.6-5.0 Serum or plasma chloride measurement (moles/volume) 109 mmol/L 98-107 Carbon dioxide 26 mmol/L 21-32 Serum or plasma anion gap determination (moles/volume) 8 mmol/L 5-14 Serum or plasma urea nitrogen measurement (mass/volume) 28 mg/dL 7-18 Serum or plasma creatinine measurement (mass/volume) 0.86 mg/dL 0.60-1.30 Serum or plasma urea nitrogen/creatinine mass ratio 33 NRG Serum or plasma creatinine measurement with calculation of estimated glomerular filtration rate > NR Serum or plasma glucose measurement (mass/volume) 110 mg/dL 70-105 Serum or plasma calcium measurement (mass/volume) 9.8 mg/dL 8.5-10.1 Serum or plasma total bilirubin measurement (mass/volume) 0.5 mg/dL 0.1-1.0 Serum or plasma alkaline phosphatase measurement (enzymatic activity/volume) 47 U/L 40-136 Serum or plasma aspartate aminotransferase measurement (enzymatic activity/ volume) 13 U/L 5-34 Serum or plasma alanine aminotransferase measurement (enzymatic activity/volume ) 13 U/L 0-55 Serum or plasma protein measurement (mass/volume) 6.9 g/dL 6.4-8.2 Serum or plasma albumin measurement (mass/volume) 4.3 g/dL 3.2-4.5 Methicillin resistant Staphylococcus aureus (MRSA) screening culture - 09:03 Methicillin resistant Staphylococcus aureus (MRSA) screening culture NEG [facility] Comp. Metabolic Panel (14) - 07/17/16 00:00 Glucose, Serum 93 mg/dL 65-99 BUN 12 mg/dL 8-27 Creatinine, Serum 0.92 mg/dL 0.57-1.00 eGFR If NonAfricn Am 67 mL/min/1.73 >59 eGFR If Africn Am 77 mL/min/1.73 >59 BUN/Creatinine Ratio 13 11-26 Sodium, Serum 143 mmol/L 134-144 Potassium, Serum 4.0 mmol/L 3.5-5.2 Chloride, Serum 99 mmol/L 96-106 Carbon Dioxide, Total 30 mmol/L 18-29 Calcium, Serum 9.7 mg/dL 8.7-10.3 Protein, Total, Serum 6.8 g/dL 6.0-8.5 Albumin, Serum 4.4 g/dL 3.6-4.8 Globulin, Total 2.4 g/dL 1.5-4.5 A/G Ratio 1.8 1.1-2.5 Bilirubin, Total 0.3 mg/dL 0.0-1.2 Alkaline Phosphatase, S 51 IU/L 39-117 AST (SGOT) 15 IU/L 0-40 ALT (SGPT) 13 IU/L 0-32 Complete blood count (CBC) with automated white blood cell (WBC) differential - 07/21/16 19:25 Blood leukocytes automated count (number/volume) 13.0 10*3/uL 4.3-11.0 Blood erythrocytes automated count (number/volume) 4.46 10*6/uL 4.35-5.85 Venous blood hemoglobin measurement (mass/volume) 12.6 g/dL 11.5-16.0 Blood hematocrit (volume fraction) 37 % 35-52 Automated erythrocyte mean corpuscular volume 84 [foz_us] 80-99 Automated erythrocyte mean corpuscular hemoglobin (mass per erythrocyte) 28 pg 25-34 Automated erythrocyte mean corpuscular hemoglobin concentration measurement ( mass/volume) 34 g/dL 32-36 Automated erythrocyte distribution width ratio 15.6 % 10.0-14.5 Automated blood platelet count (count/volume) 220 10*3/uL 130-400 Automated blood platelet mean volume measurement 11.0 [foz_us] 7.4-10.4 Automated blood neutrophils/100 leukocytes 78 % 42-75 Automated blood lymphocytes/100 leukocytes 13 % 12-44 Blood monocytes/100 leukocytes 6 % 0-12 Automated blood eosinophils/100 leukocytes 3 % 0-10 Automated blood basophils/100 leukocytes 0 % 0-10 Blood neutrophils automated count (number/volume) 10.1 10*3 1.8-7.8 Blood lymphocytes automated count (number/volume) 1.7 10*3 1.0-4.0 Blood monocytes automated count (number/volume) 0.8 10*3 0.0-1.0 Automated eosinophil count 0.3 10*3/uL 0.0-0.3 Automated blood basophil count (count/volume) 0.1 10*3/uL 0.0-0.1 Whole blood basic metabolic panel - 07/21/16 19:25 Serum or plasma sodium measurement (moles/volume) 144 mmol/L 135-145 Serum or plasma potassium measurement (moles/volume) 3.8 mmol/L 3.6-5.0 Serum or plasma chloride measurement (moles/volume) 104 mmol/L 98-107 Carbon dioxide 28 mmol/L 21-32 Serum or plasma anion gap determination (moles/volume) 12 mmol/L 5-14 Serum or plasma urea nitrogen measurement (mass/volume) 22 mg/dL 7-18 Serum or plasma creatinine measurement (mass/volume) 1.09 mg/dL 0.60-1.30 Serum or plasma urea nitrogen/creatinine mass ratio 20 NRG Serum or plasma creatinine measurement with calculation of estimated glomerular filtration rate 51 NRG Serum or plasma glucose measurement (mass/volume) 141 mg/dL 70-105 Serum or plasma calcium measurement (mass/volume) 9.9 mg/dL 8.5-10.1 Complete urinalysis with reflex to culture - 07/21/16 20:03 Urine color determination YELLOW NRG Urine clarity determination SLIGHTLY CLOUDY NRG Urine pH measurement by test strip 6 5-9 Specific gravity of urine by test strip 1.010 1.016- 1.022 Urine protein assay by test strip, semi-quantitative NEGATIVE NEGATIVE Urine glucose detection by automated test strip NEGATIVE NEGATIVE Erythrocytes detection in urine sediment by light microscopy NEGATIVE NEGATIVE Urine ketones detection by automated test strip NEGATIVE NEGATIVE Urine nitrite detection by test strip NEGATIVE NEGATIVE Urine total bilirubin detection by test strip NEGATIVE NEGATIVE Urine urobilinogen measurement by automated test strip (mass/volume) NORMAL NORMAL Urine leukocyte esterase detection by dipstick 1+ NEGATIVE Automated urine sediment erythrocyte count by microscopy (number/high power field) [HPF] NRG Automated urine sediment leukocyte count by microscopy (number/high power field ) NONE NRG Bacteria detection in urine sediment by light microscopy NEGATIVE NRG Squamous epithelial cells detection in urine sediment by light microscopy 2-5 NRG Crystals detection in urine sediment by light microscopy NONE NRG Casts detection in urine sediment by light microscopy NONE NRG Mucus detection in urine sediment by light microscopy NEGATIVE NRG Complete urinalysis with reflex to culture NO NRG Comp. Metabolic Panel (14) - 10/03/16 13:39 Glucose, Serum 99 mg/dL 65-99 BUN 19 mg/dL 8-27 Creatinine, Serum 0.95 mg/dL 0.57-1.00 eGFR If NonAfricn Am 64 mL/min/1.73 >59 eGFR If Africn Am 74 mL/min/1.73 >59 BUN/Creatinine Ratio 20 12-28 Sodium, Serum 144 mmol/L 134-144 Potassium, Serum 4.2 mmol/L 3.5-5.2 Chloride, Serum 99 mmol/L 96-106 Carbon Dioxide, Total 29 mmol/L 18-29 Calcium, Serum 10.4 mg/dL 8.7-10.3 Protein, Total, Serum 6.7 g/dL 6.0-8.5 Albumin, Serum 4.4 g/dL 3.6-4.8 Globulin, Total 2.3 g/dL 1.5-4.5 A/G Ratio 1.9 1.2-2.2 Bilirubin, Total 0.4 mg/dL 0.0-1.2 Alkaline Phosphatase, S 36 IU/L 39-117 AST (SGOT) 17 IU/L 0-40 ALT (SGPT) 13 IU/L 0-32 Complete blood count (CBC) with automated white blood cell (WBC) differential - 10/14/16 15:16 Blood leukocytes automated count (number/volume) 13.7 10*3/uL 4.3-11.0 Blood erythrocytes automated count (number/volume) 4.71 10*6/uL 4.35-5.85 Venous blood hemoglobin measurement (mass/volume) 12.9 g/dL 11.5-16.0 Blood hematocrit (volume fraction) 38 % 35-52 Automated erythrocyte mean corpuscular volume 81 [foz_us] 80-99 Automated erythrocyte mean corpuscular hemoglobin (mass per erythrocyte) 27 pg 25-34 Automated erythrocyte mean corpuscular hemoglobin concentration measurement ( mass/volume) 34 g/dL 32-36 Automated erythrocyte distribution width ratio 16.3 % 10.0-14.5 Automated blood platelet count (count/volume) 210 10*3/uL 130-400 Automated blood platelet mean volume measurement 11.1 [foz_us] 7.4-10.4 Automated blood neutrophils/100 leukocytes 78 % 42-75 Automated blood lymphocytes/100 leukocytes 12 % 12-44 Blood monocytes/100 leukocytes 6 % 0-12 Automated blood eosinophils/100 leukocytes 3 % 0-10 Automated blood basophils/100 leukocytes 0 % 0-10 Blood neutrophils automated count (number/volume) 10.7 10*3 1.8-7.8 Blood lymphocytes automated count (number/volume) 1.7 10*3 1.0-4.0 Blood monocytes automated count (number/volume) 0.9 10*3 0.0-1.0 Automated eosinophil count 0.4 10*3/uL 0.0-0.3 Automated blood basophil count (count/volume) 0.1 10*3/uL 0.0-0.1 Comprehensive metabolic panel - 10/14/16 15:16 Serum or plasma sodium measurement (moles/volume) 140 mmol/L 135-145 Serum or plasma potassium measurement (moles/volume) 3.4 mmol/L 3.6-5.0 Serum or plasma chloride measurement (moles/volume) 102 mmol/L 98-107 Carbon dioxide 26 mmol/L 21-32 Serum or plasma anion gap determination (moles/volume) 12 mmol/L 5-14 Serum or plasma urea nitrogen measurement (mass/volume) 15 mg/dL 7-18 Serum or plasma creatinine measurement (mass/volume) 0.87 mg/dL 0.60-1.30 Serum or plasma urea nitrogen/creatinine mass ratio 17 NRG Serum or plasma creatinine measurement with calculation of estimated glomerular filtration rate > NRG Serum or plasma glucose measurement (mass/volume) 112 mg/dL 70-105 Serum or plasma calcium measurement (mass/volume) 10.6 mg/dL 8.5-10.1 Serum or plasma total bilirubin measurement (mass/volume) 0.8 mg/dL 0.1-1.0 Serum or plasma alkaline phosphatase measurement (enzymatic activity/volume) 39 U/L 40-136 Serum or plasma aspartate aminotransferase measurement (enzymatic activity/ volume) 15 U/L 5-34 Serum or plasma alanine aminotransferase measurement (enzymatic activity/volume ) 12 U/L 0-55 Serum or plasma protein measurement (mass/volume) 7.1 g/dL 6.4-8.2 Serum or plasma albumin measurement (mass/volume) 3.9 g/dL 3.2-4.5 Magnesium - 10/14/16 15:16 Magnesium 1.5 mg/dL 1.8-2.4 Comp. Metabolic Panel (14) - 11/14/16 14:33 Glucose, Serum 95 mg/dL 65-99 BUN 15 mg/dL 8-27 Creatinine, Serum 0.87 mg/dL 0.57-1.00 eGFR If NonAfricn Am 71 mL/min/1.73 >59 eGFR If Africn Am 82 mL/min/1.73 >59 BUN/Creatinine Ratio 17 12-28 Sodium, Serum 138 mmol/L 134-144 Potassium, Serum 4.0 mmol/L 3.5-5.2 Chloride, Serum 96 mmol/L 96-106 Carbon Dioxide, Total 24 mmol/L 18-29 Calcium, Serum 10.3 mg/dL 8.7-10.3 Protein, Total, Serum 6.6 g/dL 6.0-8.5 Albumin, Serum 4.3 g/dL 3.6-4.8 Globulin, Total 2.3 g/dL 1.5-4.5 A/G Ratio 1.9 1.2-2.2 Bilirubin, Total 0.5 mg/dL 0.0-1.2 Alkaline Phosphatase, S 36 IU/L 39-117 AST (SGOT) 16 IU/L 0-40 ALT (SGPT) 15 IU/L 0-32 TSH - 11/14/16 14:33 TSH 1.360 uIU/mL 0.450-4.500 Magnesium, Serum - 11/14/16 14:33 Magnesium, Serum 1.7 mg/dL 1.6-2.3 PTH, Intact - 11/14/16 14:33 PTH, Intact 27 pg/mL 15-65 Comp. Metabolic Panel (14) - 03/06/17 11:01 Glucose, Serum 102 mg/dL 65-99 BUN 15 mg/dL 8-27 Creatinine, Serum 0.77 mg/dL 0.57-1.00 eGFR If NonAfricn Am 82 mL/min/1.73 >59 eGFR If Africn Am 95 mL/min/1.73 >59 BUN/Creatinine Ratio 19 12-28 Sodium, Serum 144 mmol/L 134-144 Potassium, Serum 3.9 mmol/L 3.5-5.2 Chloride, Serum 101 mmol/L 96-106 Carbon Dioxide, Total 25 mmol/L 18-29 Calcium, Serum 10.4 mg/dL 8.7-10.3 Protein, Total, Serum 7.1 g/dL 6.0-8.5 Albumin, Serum 4.6 g/dL 3.6-4.8 Globulin, Total 2.5 g/dL 1.5-4.5 A/G Ratio 1.8 1.2-2.2 Bilirubin, Total 0.4 mg/dL 0.0-1.2 Alkaline Phosphatase, S 34 IU/L 39-117 AST (SGOT) 18 IU/L 0-40 ALT (SGPT) 14 IU/L 0-32 TSH - 03/06/17 11:01 TSH 1.120 uIU/mL 0.450-4.500 CMP - 03/06/17 11:01 Glucose, Serum 102 mg/dL 65-99 BUN 15 mg/dL 8-27 Creatinine, Serum 0.77 mg/dL 0.57-1.00 eGFR If NonAfricn Am 82 mL/min/1.73 >59 eGFR If Africn Am 95 mL/min/1.73 >59 BUN/Creatinine Ratio 19 12-28 Sodium, Serum 144 mmol/L 134-144 Potassium, Serum 3.9 mmol/L 3.5-5.2 Chloride, Serum 101 mmol/L 96-106 Carbon Dioxide, Total 25 mmol/L 18-29 Calcium, Serum 10.4 mg/dL 8.7-10.3 Protein, Total, Serum 7.1 g/dL 6.0-8.5 Albumin, Serum 4.6 g/dL 3.6-4.8 Globulin, Total 2.5 g/dL 1.5-4.5 A/G Ratio 1.8 1.2-2.2 Bilirubin, Total 0.4 mg/dL 0.0-1.2 Alkaline Phosphatase, S 34 IU/L 39-117 AST (SGOT) 18 IU/L 0-40 ALT (SGPT) 14 IU/L 0-32 TSH - 03/06/17 11:01 TSH 1.120 uIU/mL 0.450-4.500 Comprehensive metabolic panel - 04/18/17 06:53 Serum or plasma sodium measurement (moles/volume) 143 mmol/L 135-145 Serum or plasma potassium measurement (moles/volume) 3.4 mmol/L 3.6-5.0 Serum or plasma chloride measurement (moles/volume) 106 mmol/L 98-107 Carbon dioxide 26 mmol/L 21-32 Serum or plasma anion gap determination (moles/volume) 11 mmol/L 5-14 Serum or plasma urea nitrogen measurement (mass/volume) 15 mg/dL 7-18 Serum or plasma creatinine measurement (mass/volume) 0.80 mg/dL 0.60-1.30 Serum or plasma urea nitrogen/creatinine mass ratio 19 NRG Serum or plasma creatinine measurement with calculation of estimated glomerular filtration rate > NRG Serum or plasma glucose measurement (mass/volume) 97 mg/dL 70-105 Serum or plasma calcium measurement (mass/volume) 10.6 mg/dL 8.5-10.1 Serum or plasma total bilirubin measurement (mass/volume) 0.6 mg/dL 0.1-1.0 Serum or plasma alkaline phosphatase measurement (enzymatic activity/volume) 36 U/L 40-136 Serum or plasma aspartate aminotransferase measurement (enzymatic activity/ volume) 20 U/L 5-34 Serum or plasma alanine aminotransferase measurement (enzymatic activity/volume ) 19 U/L 0-55 Serum or plasma protein measurement (mass/volume) 7.5 g/dL 6.4-8.2 Serum or plasma albumin measurement (mass/volume) 4.5 g/dL 3.2-4.5 Lipid 1996 panel - 04/18/17 06:53 Serum or plasma triglyceride measurement (mass/volume) 166 mg/dL <150 Serum or plasma cholesterol measurement (mass/volume) 249 mg/dL < 200 Serum or plasma cholesterol in HDL measurement (mass/volume) 53 mg/ dL 40-60 Cholesterol in LDL [mass/volume] in serum or plasma by direct assay 166 mg/dL 1-129 Serum or plasma cholesterol in VLDL measurement (mass/volume) 33 mg/ dL 5-40 SUREPATH PAP AND HPV mRNA E6/E7 - 11/19/17 10:43 CLINICAL INFORMATION: NRG LMP: 50 NRG PREV. PAP: NRG PREV. BX: NRG SOURCE: Cervix NRG STATEMENT OF ADEQUACY: NRG INTERPRETATION/RESULT: NRG HEALTH AND SAFETY TECH: NRG HPV mRNA E6/E7, SUREPATH VIAL Not Detected NOT DETECTED COMMENT NRG CULTURE, GENITAL - 11/19/17 10:43 CULTURE, GENITAL SEE NOTE NRG Encounters ACCT No. Visit Date/Time Discharge Status Pt. Type Provider Facility Loc./Unit Complaint [id number] 06/05/2012 10:54:00 06/05/2012 23:59:59 CLS Outpatient SALONI QUINN DO [id number] 05/28/2012 09:59:00 05/28/2012 23:59:59 CLS Outpatient SALONI QUINN DO [facility] 02/07/2015 13:17:30 ACT Document Registration [id number] 03/07/2017 08:07:00 Document Registration [id number] 07/18/2016 08:46:00 Document Registration [id number] 03/17/2018 14:31:00 03/17/2018 23:59:59 CLS Outpatient JASIEL KENDRICK ORNAMENT SETTER [facility] RAD SCREENING [id number] 11/28/2017 09:10:00 11/28/2017 23:59:59 CLS Outpatient JASIEL KENDRICK ORNAMENT SETTER [facility] RAD SCREENING FOR OSTEOPOROSIS [id number] 07/25/2017 23:36:00 07/26/2017 00:06:00 DIS Emergency GENARO ROJO, BING Cabrera [facility] ER LEFT LEG RASH,RT LEG THROBBING [id number] 04/18/2017 06:44:00 04/18/2017 23:59:59 CLS Outpatient MADL, SAKSHI L DIRECTOR OPERATING [facility] RAD I77.9 BILATERAL CAROTID ARTERY DISEASE [id number] 04/18/2017 06:44:00 04/18/2017 23:59:59 CLS Outpatient JOSHUA ROJO, BOBBI Olivera [facility] LAB I25.10,R07.89,E78.2,I10, R60.0 [id number] 03/11/2017 13:55:00 03/11/2017 23:59:59 CLS Outpatient MADL, SAKSHI L DIRECTOR OPERATING [facility] RAD Z12.31 SCREENING BREAST EXAM [id number] 10/30/2016 10:06:00 10/30/2016 23:59:59 CLS Outpatient MADL, SAKSHI L DIRECTOR OPERATING [facility] RAD DIZZINESS R42 [id number] 10/14/2016 14:40:00 10/14/2016 16:11:00 DIS Emergency TANJA SANDOVAL MD [facility] ER BILAT HAND NUMBNESS/LEG WEAKNESS [id number] 08/28/2016 15:53:00 08/28/2016 23:59:59 CLS Outpatient MADL, SAKSHI L DIRECTOR OPERATING [facility] RAD M47.22 [id number] 07/21/2016 18:14:00 07/21/2016 20:46:00 DIS Emergency ABEBA OBRIEN ORNAMENT SETTER [facility] ER BACK AND LEG PAIN [id number] 07/21/2016 15:27:00 07/21/2016 17:06:00 DIS Emergency AZALIA ROJO, MEKHI Batista [facility] ER HAND NUMBNESS, LOWER BACK PAIN [id number] 06/27/2016 08:10:00 06/27/2016 17:43:00 DIS Outpatient JOSHUA ROJO, BOBBI Olivera [facility] CATH CP,DYSPNEA,CAD [id number] 06/16/2016 12:06:00 06/16/2016 23:59:59 CLS Outpatient KATHRIN MCGUIRE [facility] LAB HYPERLIPIDEMIA, MIXED [id number] 05/02/2016 14:34:00 05/02/2016 19:30:00 DIS Emergency DOLORES CRUZ [facility] ER RASH [id number] 04/05/2016 18:02:00 04/05/2016 19:09:00 DIS Emergency DOLORES CRUZ [facility] ER RASH L LEG [id number] 03/07/2016 18:07:00 03/07/2016 19:52:00 DIS Emergency GENARO ROJO, BING Cabrera [facility] ER "NOT FEELING WELL"; DIARRHEA [id number] 02/08/2016 11:05:00 02/08/2016 23:59:59 CLS Outpatient KATHRIN MCGUIRE [facility] CARD CAD,CHEST PAIN,HTN,HLP [id number] 02/04/2016 20:17:00 02/04/2016 21:01:00 DIS Emergency PEDRO BORREGO DO [facility] ER BODY RASH, ITCHING [id number] 01/24/2016 08:47:00 01/24/2016 23:59:59 CLS Outpatient KATHRIN MCGUIRE [facility] CARD CAD,CHEST PAIN,HLP,HTN [id number] 01/19/2016 09:40:00 01/19/2016 23:59:59 CLS Outpatient DANIELLA GONZALEZ DO [facility] RAD SCREENING [id number] 12/26/2015 12:10:00 12/26/2015 23:59:59 CLS Outpatient KATHRIN MCGUIRE [facility] LAB ATHEROSCLEROTIC HEART DISEASE [id number] 12/26/2015 12:04:00 12/26/2015 23:59:59 CLS Outpatient DANIELLA GONZALEZ DO Suzette [facility] LAB HYPOTHYROID [id number] 11/30/2015 09:28:00 11/30/2015 23:59:59 CLS Outpatient PJJACKIE MALDONADO DANIELLA Bradford [facility] LAB HYPERLIPIDEMIA, HYPERTHYROID [id number] 11/19/2015 14:31:00 11/19/2015 15:24:00 DIS Emergency DOLORES CRUZ [facility] ER L LEG RASH [id number] 10/07/2015 22:08:00 10/07/2015 23:31:00 DIS Emergency TANJA SANDOVAL MD [facility] ER CHEST HURTING;HEADACHE; NAUSEA [id number] 10/06/2015 08:41:00 10/06/2015 23:59:59 CLS Outpatient BOBBI LEWIS MD [facility] LAB CAD,CHEST PAIN,DYSPNEA, HTN,HYPERLIPIDEMIA [id number] 06/23/2015 07:34:00 06/23/2015 23:59:59 CLS Outpatient DANIELLA GONZALEZ DO Suzette [facility] LAB SOB,HTN [id number] 06/03/2015 00:04:00 06/03/2015 01:01:00 DIS Emergency KORIN STRATTON DO [facility] ER LEFT INDEX FINGER LAC [id number] 04/05/2015 19:16:00 04/05/2015 20:35:00 DIS Emergency PEDRO BORREGO DO [facility] ER LEFT FOOT PAIN [id number] 02/07/2015 13:14:00 02/07/2015 23:59:59 CLS Outpatient LISA MALDONADO DANIELLA Suz[place] [facility] LAB SYNCOPE,DIABETES [id number] 02/04/2015 22:59:00 02/05/2015 01:27:00 DIS Emergency BING LAM MD [facility] ER RIGHT HAND INJURY [id number] 01/03/2015 07:20:00 01/03/2015 23:59:59 CLS Outpatient KATHRIN MCGUIRE [facility] CARD BRADYCARDIA, CAD,HLP [id number] 12/20/2014 15:27:00 12/20/2014 23:59:59 CLS Outpatient LISA DANIELLA [facility] RAD SCREENING [id number] 12/02/2014 14:57:00 12/02/2014 23:59:59 CLS Outpatient KIMNEWBERRY DANIELLA Bradford [facility] LAB HYPOTHYROID,DIABETES [id number] 12/02/2014 07:37:00 12/02/2014 23:59:59 CLS Outpatient KATHRIN MCGUIRE [facility] CARD CAD,HLP, BRADYCARDIA [id number] 11/14/2014 23:50:00 11/15/2014 01:28:00 DIS Emergency MEKHI VIEYRA MD [facility] ER VOMITING [id number] 10/06/2014 10:59:00 10/06/2014 13:14:00 DIS Emergency PEDRO BORREGO DO [facility] ER LEFT SIDE BURNING [id number] 09/11/2014 16:02:00 09/11/2014 18:02:00 DIS Emergency ABEBA OBRIEN APRN [facility] ER RASH [id number] 09/08/2014 12:42:00 09/08/2014 14:26:00 DIS Emergency DOLORES CRUZ [facility] ER RASH [id number] 08/27/2014 11:02:00 08/27/2014 12:10:00 DIS Emergency ABEBA OBRIEN APRN [facility] ER LEFT FLANK PAIN [id number] 08/15/2014 12:37:00 08/15/2014 13:53:00 DIS Emergency ABEBA OBRIEN APRN [facility] ER RASH [id number] 08/14/2014 21:09:00 08/14/2014 22:36:00 DIS Emergency ELMO DO PEDRO K [facility] ER RASH ALL OVER BODY [id number] 04/21/2014 12:06:00 04/21/2014 23:59:59 CLS Outpatient BOBBI LEWIS MD [facility] CATH BRADYCARDIA,NEAR SYNCOPE [id number] 04/16/2014 21:22:00 04/17/2014 00:57:00 DIS Emergency BING LAM MD [facility] ER FALL [id number] 01/08/2014 09:31:00 01/08/2014 12:55:00 DIS Emergency GENARO ROJO, BING Cabrera [facility] ER DIZZINESS/LIP NUMBNESS [id number] 12/17/2013 09:49:00 12/17/2013 23:59:59 CLS Outpatient DANIELLA GONZALEZ DO [facility] RAD SCREENING [id number] 12/01/2013 21:45:00 12/04/2013 10:15:00 DIS Inpatient DANIELLA GONZALEZ DO [facility] 4TH VERTIGO,HYPOTENSION, DIARRHEA [id number] 11/15/2013 15:02:00 11/15/2013 23:59:59 CLS Outpatient DANIELLA GONZALEZ DO [facility] LAB DIABETES [id number] 11/15/2013 15:19:00 11/15/2013 16:32:00 DIS Emergency ABEBA OBRIEN APRN [facility] ER VOMITING [id number] 10/29/2013 20:59:00 10/29/2013 22:45:00 DIS Emergency KORIN STRATTON DO [facility] ER DIZZINESS [id number] 10/14/2013 08:22:00 10/14/2013 23:59:59 CLS Outpatient KATHRIN MCGUIRE [facility] CARD BRADYCARDY, CAD,DM,HLP [id number] 09/08/2013 21:47:00 09/10/2013 17:40:00 DIS Inpatient DANIELLA GONZALEZ DO [facility] 4TH TIA/CHEST PAIN [id number] 08/30/2013 09:29:00 08/30/2013 23:59:59 CLS Outpatient KATHRIN MCGUIRE [facility] LAB HYPERLIPIDEMIA [id number] 04/01/2013 11:06:00 04/02/2013 17:50:00 DIS Inpatient RENATO MACE MD [facility] ICU LEFT CAROTID STENOSIS [id number] 03/30/2013 09:41:00 03/30/2013 23:59:59 CLS Outpatient RENATO MACE MD [facility] PREOP LEFT CAROTID STENOSIS [id number] 03/09/2013 06:42:00 03/09/2013 13:00:00 DIS Outpatient BOBBI LEWIS MD [facility] CATH ABNORMAL STRESS, CP CAD, HTN,HLP [id number] 03/04/2013 10:21:00 03/04/2013 23:59:59 CLS Outpatient BOBBI LEWIS MD [facility] CARD CP,CAD,HLP,HTN [id number] 03/03/2013 13:05:00 03/03/2013 23:59:59 CLS Outpatient BOBBI LEWIS MD [facility] LAB CP,DIABETES,CAD, HYPERLIPIDEMIA [id number] 02/22/2013 17:30:00 02/22/2013 21:50:00 DIS Emergency PEDRO BORREGO DO [facility] ER VOMITTING,BLACK OUTS [id number] 12/17/2012 23:49:00 12/18/2012 01:31:00 DIS Emergency PEDRO BORREGO DO [facility] ER LFT SHOULDER PAIN [id number] 11/27/2012 14:29:00 11/27/2012 23:59:59 CLS Outpatient DANIELLA GONZALEZ DO [facility] RAD SCREENING [id number] 10/04/2012 16:01:00 10/04/2012 20:56:00 DIS Emergency MEKHI VIEYRA MD [facility] ER BOTH ARMS ARE NUMB [id number] 03/31/2015 08:23:00 Document Registration [id number] 02/19/2015 22:08:00 Document Registration [id number] 04/17/2014 01:05:00 Document Registration [id number] 10/23/2012 11:00:00 Document Registration [id number] 07/24/2012 10:48:00 Document Registration [id number] 05/19/2012 10:22:00 Document Registration [id number] 03/17/2012 11:55:00 Document Registration [id number] 03/14/2012 08:14:00 Document Registration [id number] 02/29/2012 21:19:00 Document Registration [id number] 02/06/2012 17:56:00 Document Registration [id number] 01/20/2012 20:04:00 Document Registration [id number] 01/14/2012 08:51:00 Document Registration [id number] 11/26/2011 13:08:00 Document Registration [id number] 10/09/2011 08:14:00 Document Registration [id number] 09/28/2011 07:21:00 Document Registration [id number] 06/10/2011 19:01:00 Document Registration [id number] 05/10/2011 19:33:00 Document Registration [id number] 04/09/2011 09:11:00 Document Registration [id number] 12/01/2010 08:10:00 Document Registration [id number] 11/24/2010 17:36:00 Document Registration [id number] 09/09/2010 12:43:00 Document Registration [id number] 07/31/2010 17:30:00 Document Registration [id number] 07/13/2010 10:14:00 Document Registration [id number] 07/10/2010 07:19:00 Document Registration [id number] 06/10/2010 16:55:00 Document Registration [id number] 06/08/2010 08:43:00 Document Registration [id number] 06/07/2010 08:34:00 Document Registration [id number] 05/10/2010 16:53:00 Document Registration [id number] 04/14/2010 21:16:00 Document Registration [id number] 05/15/2016 13:05:00 Document Registration [id number] 10/04/2016 08:43:00 Document Registration [id number] 11/15/2016 12:07:00 Document Registration [id number] 12/17/2017 13:20:00 12/17/2017 23:59:59 CLS Out[facility] [id number] 11/19/2017 10:00:00 Document Registration [id number] 03/06/2017 10:20:00 Document Registration
[2018-04-05] MEDS ORDERED: cloNIDine 0.1 MG (CATAPRES) TAB PO ONE (21:15)
--- NOTE | 2018-04-05 21:23 | ED General ---
General Chief Complaint: Dizziness/Syncope Stated Complaint: WEAKNESS,LETHARGY Nursing Triage Note: dizzy/weakness Nursing Sepsis Screen: No Definite Risk Source of Information: Patient Exam Limitations: No Limitations History of Present Illness Date Seen by Provider: Apr 05, 2018 Time Seen by Provider: 21:21 Initial Comments To ER with reports of dizziness that began 2 hours ago. She took a meclizine at home this morning but has not yet had her night dose. Now she is not dizzy anymore. She has no other complaints. Timing/Duration: 1-2 Days Severity: Moderate Allergies and Home Medications Allergies Coded Allergies: [place] Known Allergies (Unverified Allergy, Mild, 12/25/08) Home Medications Aspirin 325 Mg Tab, 325 MG PO DAILY, (Reported) Cholecalciferol (Vitamin D3) 50,000 Unit Capsule, 50,000 UNIT PO We, (Reported) Clobetasol Propionate 15 Gm Cream..g., TOP TID, (Reported) Clopidogrel Bisulfate 75 Mg Tablet, 75 MG PO DAILY, (Reported) Clotrimazole/Betamethasone Dip 15 Gm Cream..g., 15 GM TP BID Prescribed by: BING HERNANDEZ on 07/26/17 0003 Cyanocobalamin (Vitamin B-12) 50 Mcg Tablet, 50 MCG PO DAILY, (Reported) Fenofibrate Nanocrystallized 145 Mg Tablet, 145 MG PO HS, (Reported) Gabapentin 300 Mg Capsule, 300 MG PO BID PRN for PAIN-MILD TO MODERATE Prescribed by: BING HERNANDEZ on 07/26/17 0003 Hydrochlorothiazide 25 Mg Tab, 25 MG PO Q48H, (Reported) ALTERNATES EVERY OTHER DAY WITH 1/2 TABLET Hydrochlorothiazide 25 Mg Tablet, 12.5 MG PO Q48H, (Reported) TAKES 1/2 (25MG) TABLET - ALTERNATES EVERY OTHER DAY WITH 1 WHOLE TABLET Isosorbide Mononitrate 60 Mg Tab.er.24h, 60 MG PO DAILY, (Reported) Levothyroxine Sodium 75 Mcg Tablet, 75 MCG PO DAILY, (Reported) Lisinopril 10 Mg Tablet, 10 MG PO DAILY, (Reported) Metoprolol Tartrate 25 Mg Tablet, 12.5 MG PO DAILY, (Reported) TAKES 1/2 (25MG) TABLET Dearing-3 Fatty Acids/Fish Oil 1 Each Capsule, 1,000 MG PO BID, (Reported) Potassium Chloride 10 Meq Tab.er.prt, 10 MEQ PO DAILY, (Reported) Prednisone 20 Mg Tab, 40 MG PO DAILY Prescribed by: ABEBA OBRIEN on 07/21/162002 Rosuvastatin Calcium 20 Mg Tablet, 20 MG PO HS, (Reported) Patient Home Medication List Home Medication List Reviewed: Yes Review of Systems Review of Systems Constitutional: see HPI EENTM: see HPI Respiratory: no symptoms reported Cardiovascular: no symptoms reported Genitourinary: no symptoms reported Musculoskeletal: no symptoms reported Skin: no symptoms reported Psychiatric/Neurological: No Symptoms Reported Past Zegpkmh-Qrzfoj-Sihwpe Hx Patient Social History Alcohol Use: Denies Use Recreational Drug Use: No Smoking Status: Former Smoker Type Used: Cigarettes Former Smoker, Quit: Jun 27, 1996 2nd Hand Smoke Exposure: No Recent Foreign Travel: No Contact w/Someone Who Travel: No Recent Infectious Disease Expo: No Recent Hopitalizations: No Immunizations Up To Date Tetanus Booster (TDap): Less than 5yrs PED Vaccines UTD: No Date of Pneumonia Vaccine: Jan 13, 2013 Date of Influenza Vaccine: Feb 11, 2016 Seasonal Allergies Seasonal Allergies: No Past Medical History Surgeries: Yes (UMBILICAL HERNIA REPAIR, CAROTID ENDARTERECTOMY,CARDIAC CATH X 2 WITH STENT) Abdominal, Adenoidectomy, Cardiac, Coronary Stent, Eye Surgery, Gallbladder, Tonsillectomy, Vascular Surgery Respiratory: No Cardiac: Yes Coronary Artery Disease, High Cholesterol, Hypertension, Peripheral Vascular Neurological: Yes TIA : No Reproductive Disorders: No 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 Sexually Transmitted Disease: No HIV/AIDS: No Genitourinary: Yes Kidney Infection Gastrointestinal: Yes Gall Bladder Disease Musculoskeletal: Yes Arthritis, Chronic Back Pain, Fractures Endocrine: Yes Hypothyroidsim, Diabetes, Non-Insulin dep HEENT: No Cancer: No Psychosocial: No Integumentary: Yes Eczema Blood Disorders: No Adverse Reaction/Blood Tranf: No Family Medical History Cancer 03 MOTHER (NOSE AND KIDNEY ) 09 SISTER (KIDNEY) Family history: Cardiovascular disease 03 FATHER 09 BROTHER Family history: Diabetes mellitus 03 FATHER 03 MOTHER 09 SISTER Heart disease 03 FATHER 09 BROTHER Stroke 03 FATHER No Pertinent Family Hx Physical Exam Vital Signs Vital Signs - First Documented 04/05/18 21:00 Temp 98.3 Pulse 66 Resp 18 B/P (MAP) 191/79 (116) Pulse Ox 97 O2 Delivery Room Air Capillary Refill : Less Than 3 Seconds Height, Weight, BMI Height: 5'6.00" Weight: 185lbs. 0.0oz. 83.634137fu; 32.0 BMI Method:Stated General Appearance: No Apparent Distress, WD/WN Eyes: Bilateral Eye Normal Inspection, Bilateral Eye PERRL, Bilateral Eye EOMI HEENT: PERRL/EOMI, TMs Normal Neck: Full Range of Motion, Normal Inspection Respiratory: No Accessory Muscle Use, No Respiratory Distress Cardiovascular: Regular Rate, Rhythm, Normal Peripheral Pulses Gastrointestinal: Normal Bowel Sounds, Non Tender, Soft Extremity: Normal Capillary Refill, No Calf Tenderness Neurologic/Psychiatric: Alert, Oriented x3 Skin: Normal Color, Warm/Dry Comments She is hypertensive at 209/93 which she states is unusual for her. We'll check some basic labs a clonidine and reevaluate. Procedures/Interventions Suture Size: 4-0 Progress/Results/Core Measures Suspected Sepsis Recent Fever Within 48 Hours: No Infection Criteria Present: None New/Unexplained Altered Menta: No Sepsis Screen: No Definite Risk SIRS Temperature:98.3 Pulse: 66 Respiratory Rate: 18 Laboratory Tests 04/05/18 21:25: White Blood Count 7.8 Blood Pressure 191 /79 Mean: 116 Laboratory Tests 04/05/18 21:25: Creatinine 0.76, Platelet Count 229 Results/Orders Lab Results Laboratory Tests Test 04/05/18 21:25 04/05/18 21:38 Range/Units White Blood Count 7.8 4.3-11.0 10^3/uL Red Blood Count 4.68 4.35-5.85 10^6/uL Hemoglobin 12.2 11.5-16.0 G/DL Hematocrit 36 35-52 % Mean Corpuscular Volume 78 L 80-99 FL Mean Corpuscular Hemoglobin 26 25-34 PG Mean Corpuscular Hemoglobin Concent 34 32-36 G/DL Red Cell Distribution Width 15.8 H 10.0-14.5 % Platelet Count 229 130-400 10^3/uL Mean Platelet Volume 11.1 H 7.4-10.4 FL Neutrophils (%) (Auto) 54 42-75 % Lymphocytes (%) (Auto) 31 12-44 % Monocytes (%) (Auto) 10 0-12 % Eosinophils (%) (Auto) 4 0-10 % Basophils (%) (Auto) 1 0-10 % Neutrophils # (Auto) 4.2 1.8-7.8 X 10^3 Lymphocytes # (Auto) 2.4 1.0-4.0 X 10^3 Monocytes # (Auto) 0.7 0.0-1.0 X 10^3 Eosinophils # (Auto) 0.3 0.0-0.3 10^3/uL Basophils # (Auto) 0.1 0.0-0.1 10^3/uL Sodium Level 141 135-145 MMOL/L Potassium Level 3.5 L 3.6-5.0 MMOL/L Chloride Level 105 98-107 MMOL/L Carbon Dioxide Level 25 21-32 MMOL/L Anion Gap 11 5-14 MMOL/L Blood Urea Nitrogen 19 H 7-18 MG/DL Creatinine 0.76 0.60-1.30 MG/DL Estimat Glomerular Filtration Rate > 60 BUN/Creatinine Ratio 25 Glucose Level 137 H 70-105 MG/DL Calcium Level 9.8 8.5-10.1 MG/DL Urine Color YELLOW Urine Clarity CLEAR Urine pH 7 5-9 Urine Specific South Range 1.005 L 1.016-1.022 Urine Protein NEGATIVE NEGATIVE Urine Glucose (UA) NEGATIVE NEGATIVE Urine Ketones NEGATIVE NEGATIVE Urine Nitrite NEGATIVE NEGATIVE Urine Bilirubin NEGATIVE NEGATIVE Urine Urobilinogen NORMAL NORMAL MG/DL Urine Leukocyte Esterase NEGATIVE NEGATIVE Urine RBC (Auto) NEGATIVE NEGATIVE Urine RBC NONE /HPF Urine WBC NONE /HPF Urine Crystals NONE /LPF Urine Bacteria NEGATIVE /HPF Urine Casts NONE /LPF Urine Mucus NEGATIVE /LPF Urine Culture Indicated NO My Orders Orders - ABEBA OBRIEN APRN Clonidine Tablet (Catapres Tablet) (04/05/18 21:15) Cbc With Automated Diff (04/05/18 21:19) Basic Metabolic Panel (04/05/18 21:19) Ua Culture If Indicated (04/05/18 21:19) Medications Given in ED Current Medications Medications Dose Ordered Sig/Liset Route Start Time Stop Time Status Last Admin Dose Admin Clonidine HCl 0.1 mg ONCE ONCE PO 04/05/18 21:15 04/05/18 21:16 DC 04/05/18 21:16 0.1 MG Vital Signs/I&O 04/05/18 21:00 Temp 98.3 Pulse 66 Resp 18 B/P (MAP) 191/79 (116) Pulse Ox 97 O2 Delivery Room Air Capillary Refill : Less Than 3 Seconds Blood Pressure Mean: 116 Departure Impression Primary Impression: Hypertension Qualified Codes: I10 - Essential (primary) hypertension Disposition: 01 HOME, SELF-CARE Condition: Improved Departure-Patient Inst. Decision time for Depature: 21:22 Referrals: SALONI QUINN DO (PCP) Primary Care Physician JASIEL KENDRICK APRN (Family) Primary Care Physician Patient Instructions: High Blood Pressure (DC) Add. Discharge Instructions: 1. Medication as directed 2. Follow-up with your doctor next week 3. All discharge instructions reviewed with patient and/or family. Voiced understanding. ABEBA OBRIEN APRN Apr 05, 2018 21:23
[2018-04-05 21:35] LABS: BASOPHILS # (AUTO) 0.1 10^3/uL (0.0-0.1); BASOPHILS % (AUTO) 1 % (0-10); EOSINOPHILS # (AUTO) 0.3 10^3/uL (0.0-0.3); EOSINOPHILS % (AUTO) 4 % (0-10); HEMATOCRIT 36 % (35-52); HEMOGLOBIN 12.2 G/DL (11.5-16.0); LYMPHOCYTES # (AUTO) 2.4 X 10^3 (1.0-4.0); LYMPHOCYTES % (AUTO) 31 % (12-44); MEAN CORPUSCULAR HEMOGLOBIN 26 PG (25-34); MEAN CORPUSCULAR HGB CONC 34 G/DL (32-36); MEAN CORPUSCULAR VOLUME 78 FL (80-99); MEAN PLATELET VOLUME 11.1 FL (7.4-10.4); MONOCYTES # (AUTO) 0.7 X 10^3 (0.0-1.0); MONOCYTES % (AUTO) 10 % (0-12); NEUTROPHILS # (AUTO) 4.2 X 10^3 (1.8-7.8); NEUTROPHILS % (AUTO) 54 % (42-75); PLATELET COUNT 229 10^3/uL (130-400); RED BLOOD COUNT 4.68 10^6/uL (4.35-5.85); RED CELL DISTRIBUTION WIDTH 15.8 % (10.0-14.5); WHITE BLOOD COUNT 7.8 10^3/uL (4.3-11.0)
[2018-04-05 21:43] LABS: BILIRUBIN,URINE NEGATIVE (NEGATIVE); CLARITY,URINE CLEAR; COLOR,URINE YELLOW; GLUCOSE, URINE (UA) NEGATIVE (NEGATIVE); KETONES,URINE NEGATIVE (NEGATIVE); LEUKOCYTE ESTERASE ,URINE NEGATIVE (NEGATIVE); NITRITE,URINE NEGATIVE (NEGATIVE); PH,URINE 7 (5-9); PROTEIN,URINE NEGATIVE (NEGATIVE); UROBILINOGEN,URINE NORMAL (NORMAL)
[2018-04-05 21:46] LABS: BUN/CREATININE RATIO 25; CALCIUM 9.8 MG/DL (8.5-10.1); CARBON DIOXIDE 25 MMOL/L (21-32); CHLORIDE 105 MMOL/L (98-107); CREATININE SERUM 0.76 MG/DL (0.60-1.30); GFR ESTIMATED > 60; GLUCOSE 137 MG/DL (70-105); POTASSIUM 3.5 MMOL/L (3.6-5.0); SODIUM 141 MMOL/L (135-145)
[2018-04-05 21:56] LABS: BACTERIA,URINE NEGATIVE /HPF
[2018-04-05 22:03] VITALS: BP 107/55
== END 2018-04-05 22:03 | disposition home or self-care (01) ==
LOC: EDUNIT# 19:48 → ER 19:49
DX: I10 Essential (primary) hypertension (principal); I25.10 Atherosclerotic heart disease of native coronary artery without angina pectoris; E78.00 Pure hypercholesterolemia, unspecified; I73.9 Peripheral vascular disease, unspecified; E03.9 Hypothyroidism, unspecified; E11.9 Type 2 diabetes mellitus without complications; Z80.51 Family history of malignant neoplasm of kidney; Z80.8 Family history of malignant neoplasm of other organs or systems; Z82.49 Family history of ischemic heart disease and other diseases of the circulatory system; Z87.448 Personal history of other diseases of urinary system; Z86.73 Personal history of transient ischemic attack (TIA), and cerebral infarction without residual deficits; Z79.82 Long term (current) use of aspirin; Z79.02 Long term (current) use of antithrombotics/antiplatelets; Z79.52 Long term (current) use of systemic steroids; Z87.891 Personal history of nicotine dependence; Z98.890 Other specified postprocedural states; Z90.89 Acquired absence of other organs; Z95.9 Presence of cardiac and vascular implant and graft, unspecified; Z95.5 Presence of coronary angioplasty implant and graft
CPT/HCPCS: 36415; 80048; 81000; 85025

== ENCOUNTER 2018-04-12 10:51 | Emergency (ER) | payer SELFPAY ==
[~2018-04-12] VITALS: Ht 167.6 cm; Wt 87.5 kg
[2018-04-12] MEDS ORDERED: HYDROcodone/APAP 5 MG/325 MG (LORTAB) TAB PO ONE (11:15)
--- NOTE | 2018-04-12 11:25 | ED Trauma-Multisystem ---
General Chief Complaint: Trauma-Non Activation Stated Complaint: FALL LAST NIGHT/PAIN ALL OVER Nursing Triage Note: pt states she fell down last night [place] wet [place], denies LOC. pT PRESENTS WITH VISIBLE ECCHYMOSIS TO THE FACE AND FOREHEAD. Source of Information: Patient Exam Limitations: No Limitations History of Present Illness Date Seen by Provider: Apr 12, 2018 Time Seen by Provider: 11:10 Initial Comments Patient is a 62-year-old female who presents to the emergency room with complaints of left shoulder pain, head, neck pain after slipping on wet pavement at a local bowling alley last night. She reports that she fell onto her left shoulder and striking her head and face on the pavement. She denies loss of consciousness. She has ecchymosis to her forehead and bilateral eyes. Reports this happened around 1999 last night. Occurred: Yesterday Pain/Injury Location: Face, Head, Upper Extremity (left shoulder/elbow) Method of Injury: Fall Allergies and Home Medications Allergies Coded Allergies: NKANo Known Allergies (Unverified Allergy, Mild, 12/25/08) Sulfa (Sulfonamide Antibiotics) (Verified Allergy, Unknown, 04/12/18) Home Medications Aspirin 325 Mg Tab, 325 MG PO DAILY, (Reported) Cholecalciferol (Vitamin D3) 50,000 Unit Capsule, 50,000 UNIT PO We, (Reported) Clobetasol Propionate 15 Gm Cream..g., TOP TID, (Reported) Clopidogrel Bisulfate 75 Mg Tablet, 75 MG PO DAILY, (Reported) Clotrimazole/Betamethasone Dip 15 Gm Cream..g., 15 GM TP BID Prescribed by: BING HERNANDEZ on 07/26/17 0003 Cyanocobalamin (Vitamin B-12) 50 Mcg Tablet, 50 MCG PO DAILY, (Reported) Fenofibrate Nanocrystallized 145 Mg Tablet, 145 MG PO HS, (Reported) Gabapentin 300 Mg Capsule, 300 MG PO BID PRN for PAIN-MILD TO MODERATE Prescribed by: BING HERNANDEZ on 07/26/17 0003 Hydrochlorothiazide 25 Mg Tab, 25 MG PO Q48H, (Reported) ALTERNATES EVERY OTHER DAY WITH 1/2 TABLET Hydrochlorothiazide 25 Mg Tablet, 12.5 MG PO Q48H, (Reported) TAKES 1/2 (25MG) TABLET - ALTERNATES EVERY OTHER DAY WITH 1 WHOLE TABLET Isosorbide Mononitrate 60 Mg Tab.er.24h, 60 MG PO DAILY, (Reported) Levothyroxine Sodium 75 Mcg Tablet, 75 MCG PO DAILY, (Reported) Lisinopril 10 Mg Tablet, 10 MG PO DAILY, (Reported) Metoprolol Tartrate 25 Mg Tablet, 12.5 MG PO DAILY, (Reported) TAKES 1/2 (25MG) TABLET [place]-3 Fatty Acids/Fish Oil 1 Each Capsule, 1,000 MG PO BID, (Reported) Potassium Chloride 10 Meq Tab.er.prt, 10 MEQ PO DAILY, (Reported) Prednisone 20 Mg Tab, 40 MG PO DAILY Prescribed by: ABEBA OBRIEN on 07/21/162002 Rosuvastatin Calcium 20 Mg Tablet, 20 MG PO HS, (Reported) Patient Home Medication List Home Medication List Reviewed: Yes Review of Systems Review of Systems Constitutional: no symptoms reported, see HPI Eyes: See HPI, Other (black eyes) Musculoskeletal: see HPI, joint pain (left shoulder and elbow pain) Skin: see HPI ( ecchymosis to face, forehead, eyes, left elbow) All Other Systems Reviewed Negative Unless Noted: Yes Past Klncmuy-Guwqit-Ybuaap Hx Past Med/Social Hx: Reviewed Nursing Past Med/Soc Hx Patient Social History Type Used: Cigarettes Former Smoker, Quit: Jun 27, 1996 2nd Hand Smoke Exposure: No Recent Foreign Travel: No Contact w/Someone Who Travel: No Recent Infectious Disease Expo: No Recent Hopitalizations: No Immunizations Up To Date Tetanus Booster (TDap): Less than 5yrs PED Vaccines UTD: No Date of Pneumonia Vaccine: Jan 13, 2013 Date of Influenza Vaccine: Feb 11, 2016 Seasonal Allergies Seasonal Allergies: No Past Medical History Surgeries: Yes (UMBILICAL HERNIA REPAIR, CAROTID ENDARTERECTOMY,CARDIAC CATH X 2 WITH STENT) Abdominal, Adenoidectomy, Cardiac, Coronary Stent, Eye Surgery, Gallbladder, Tonsillectomy, Vascular Surgery Respiratory: No Cardiac: Yes Coronary Artery Disease, High Cholesterol, Hypertension, Peripheral Vascular Neurological: Yes TIA : No Reproductive Disorders: No 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 Sexually Transmitted Disease: No HIV/AIDS: No Genitourinary: Yes Kidney Infection Gastrointestinal: Yes Gall Bladder Disease Musculoskeletal: Yes Arthritis, Chronic Back Pain, Fractures Endocrine: Yes Hypothyroidsim, Diabetes, Non-Insulin dep HEENT: No Cancer: No Psychosocial: No Integumentary: Yes Eczema Blood Disorders: No Adverse Reaction/Blood Tranf: No Family Medical History Reviewed Nursing Family Hx Cancer 03 MOTHER (NOSE AND KIDNEY ) 09 SISTER (KIDNEY) Family history: Cardiovascular disease 03 FATHER 09 BROTHER Family history: Diabetes mellitus 03 FATHER 03 MOTHER 09 SISTER Heart disease 03 FATHER 09 BROTHER Stroke 03 FATHER No Pertinent Family Hx Physical Exam Vital Signs Vital Signs - First Documented 04/12/18 11:08 Temp 97.9 Pulse 65 Resp 20 B/P (MAP) 171/79 (109) Pulse Ox 96 O2 Delivery Room Air Height, Weight, BMI Height: 5'6.00" Weight: 193lbs. 0.0oz. 87.253644ms; 32.0 BMI Method:Stated General Appearance: No Apparent Distress, WD/WN Head: Ecchymosis, Raccoon Eyes, Tenderness (forehead); No Active Bleeding Eyes: Bilateral Eye Normal Inspection, Bilateral Eye PERRL, Bilateral Eye EOMI Ears, Nose, Throat: Hearing Grossly Normal, No Evidence of ENT Injury, No Dental Injury Neck: Full Range of Motion, Normal Inspection, Supple, Tender Midline Cardiovascular: Regular Rate, Rhythm, No Edema, No Gallop, No JVD, No Murmur, Normal Peripheral Pulses Respiratory: Chest Non Tender, Lungs Clear, Normal Breath Sounds, No Accessory Muscle Use, No Respiratory Distress Gastrointestinal: Normal Bowel Sounds, No Organomegaly, No Pulsatile Mass, Non Tender, Soft Back: Normal Inspection, No CVA Tenderness, No Vertebral Tenderness Extremity: Normal Capillary Refill, Normal Inspection, Normal Range of Motion, No Pedal Edema, Other (ecchymosis and swelling to her left elbow. Pain with range of motion to her left shoulder.) Neurologic/Psychiatric: Alert, Oriented x3, Normal Mood/Affect Skin: Normal Color, Warm/Dry, Ecchymosis (ecchymosis to face and left elbow) [place] Coma Score Best Eye Response (Maine): (4) Open Spontaneously Best Verbal Response (Dee): (5) Oriented Best Motor Response (Dee): (6) Obeys Commands [place] Total: 15 Procedures/Interventions Suture Size: 4-0 Progress/Results/Core Measures Results/Orders My Orders Orders - SHAHENE JIÉMNEZ Ct Head/Face/Cervical Wo (04/12/18 11:11) Shoulder, Left, 3 Views (04/12/18 11:11) Elbow, Left, 3 Views (04/12/18 11:11) Hydrocodone/Apap 5/325 Tablet (Lortab 5 (04/12/18 11:15) Rx-Hydrocodone/Apap 5-325 Mg (Rx-Vicodin (04/12/18 12:30) Medications Given in ED Vital Signs/I&O 04/12/18 04/12/18 11:08 12:34 Temp 97.9 97.9 Pulse 65 56 Resp 20 20 B/P (MAP) 171/79 (109) 148/69 (95) Pulse Ox 96 96 O2 Delivery Room Air Blood Pressure Mean: 109 Progress Progress Note : Time: 12:00 Progress Note I have seen and evaluated the patient. She has relief of pain after medication. I have informed her of normal imaging studies and plans for discharge. She agrees with plan of care. Return precautions were given. Diagnostic Imaging Diagonstic Imaging: Xray Plain Films/CT/US/NM/MRI: facial bones, elbow, c-spine, head, other ( shoulder) Comments NAME: PRICILLA BARTH MED REC#: [id number] PT STATUS: DEP ER : 1955 PHYSICIAN: SHAHEEN JIMÉNEZ ADMIT DATE: 04/12/18/ER Signed Date of Exam: 04/12/18 ELBOW, LEFT, 3 VIEWS INDICATION: Fall and left elbow pain. TIME OF EXAM: 11:54 AM 3 views left elbow are obtained. FINDINGS: Alignment is normal. Joint spaces are well maintained. No fracture, dislocation or effusion is detected. IMPRESSION: No acute bony abnormality is detected. Dictated by: Dictated on workstation # [id number] Dict: 04/12/18 1158 Trans: 04/12/18 1359 Interpreted by: MEGAN CHAVEZ MD Electronically signed by: MEGAN CHAVEZ MD 04/12/18 1351 NAME: PRICILLA BARTH MED REC#: [id number] PHYSICIAN: SHAHEEN JIMÉNEZ CC: SHAHEEN JIMÉNEZ; MEGAN CHAVEZ MD Page 2 of 2 RADIOLOGY REPORT VIA [place], [place] CC: SHAHEEN JIMÉNEZ; MEGAN CHAVEZ MD Page 1 of 1 RADIOLOGY REPORT NAME: PRICILLA BARTH MED REC#: [id number] PT STATUS: DEP ER : 1955 PHYSICIAN: SHAHEEN JIMÉNEZ ADMIT DATE: 04/12/18/ER Signed Date of Exam: 04/12/18 CT HEAD/FACE/CERVICAL WO PROCEDURE: CT head, face, and cervical spine without contrast. TECHNIQUE: Multiple contiguous axial images were obtained through the head, neck, and facial bones without the use of intravenous contrast. Sagittal and coronal reformations through the cervical spine and facial bones were also performed. INDICATION: Fall with bruising to nasal bones and forehead as well as headache and dizziness. Comparison is made with prior CT from 07/21/2016. CT head: There is soft tissue swelling in the frontal scalp. The ventricles and sulci are within normal limits. No sulcal effacement, midline shift or hemorrhage is detected. Cisterns are patent. Visualized paranasal sinuses are clear. IMPRESSION: Frontal scalp swelling. No acute intracranial process is detected. CT cervical spine: There is straightening of the normal cervical lordotic curvature. Alignment is normal. There is degenerative disc disease C5-C6 and C6-C7 levels, with disc space narrowing and marginal spurring. No fractures are seen. The odontoid is intact. IMPRESSION: Cervical spondylosis. No acute bony abnormality is detected. CT maxillofacial: The mandible is intact. Zygomatic arches appear intact. Maxillary sinus mckenzie and nasal bones are intact. No definite orbital fracture is seen. Soft tissue swelling in the frontal soft tissues is noted. IMPRESSION: Frontal scalp swelling. No facial bone fracture is detected. Dictated by: Dictated on workstation # [id number] Dict: 04/12/18 1152 Trans: 04/12/18 1359 Interpreted by: MEGAN CHAVEZ MD Electronically signed by: EMGAN CHAVEZ MD 04/12/18 1353 NAME: PRICILLA BARTH MED REC#: [id number] PHYSICIAN: SHAHEEN JIMÉNEZ CC: SHAHEEN JIMÉNEZ; MEGAN CHAVEZ MD Page 1 of 1 RADIOLOGY REPORT VIA [facility]. [place], [place] CC: SHAHEEN JIMÉNEZ; MEGAN CHAVEZ MD Page 1 of 1 RADIOLOGY REPORT NAME: PRICILLA BARTH MED REC#: [id number] PT STATUS: DEP ER : 1955 PHYSICIAN: SHAHEEN JIMÉNEZ ADMIT DATE: 04/12/18/ER Signed Date of Exam: 04/12/18 SHOULDER, LEFT, 3 VIEWS INDICATION: Fall and left shoulder pain. TIME OF EXAM: 11:58 AM 3 views left shoulder were obtained. FINDINGS: Glenohumeral and acromioclavicular alignment are normal. Acromiohumeral space is normal. No fracture or dislocation is seen. IMPRESSION: No acute abnormality is detected. Dictated by: Dictated on workstation # [id number] Dict: 04/12/18 1157 Trans: 04/12/18 1359 Interpreted by: MEGAN CHAVEZ MD Electronically signed by: MEGAN CHAVEZ MD 04/12/18 1359 Reviewed: Reviewed by Me Departure Impression Primary Impression: Fall on same level from slipping, tripping or stumbling Additional Impressions: Contusion Minor head injury without loss of consciousness Disposition: 01 HOME, SELF-CARE Condition: Stable/Unchanged Departure-Patient Inst. Decision time for Depature: 12:14 Referrals: SALONI QUINN DO (PCP) Primary Care Physician JASIEL KENDRICK APRN (Family) Primary Care Physician Patient Instructions: Contusion (DC), Minor Head Injury (DC) Add. Discharge Instructions: Ice to sore areas at 20 minute intervals. Tylenol as directed by the bottle for pain relief. Follow-up with your primary care provider within 1 week for recheck. Return back to the emergency room for any worsening symptoms or concerns as needed. All discharge instructions reviewed with patient and/or family. Voiced understanding. SHAHEEN JIMÉNEZ Apr 12, 2018 11:25
--- OUTSIDE RECORDS SUMMARY | 2018-04-12 11:33 | XMS REPORT | Clinical Summary ---
Author Author [facility] Organization [facility] Address Unknown Phone Unavailable Care Team Providers Care Battery Plate Assembler Name Role Phone Eda Seals PICK UP ATTENDANT PCP Source Comments Some departments are not documenting in the electronic medical record. If you do not see the information that you expected, contact Release of Information in the Health Information Management department at [phone] for further assistance in locating additional records.[facility] Allergies Active Allergy Reactions Severity Noted Date Comments Exenatide Microspheres HIVES Medium 10/26/2016 Sulfa [facility]amide [facility] 10/26/2016 Antibiotics) Current Medications Prescription Sig. [...]
--- OUTSIDE RECORDS SUMMARY | 2018-04-12 11:34 | XMS REPORT ---
Author Author KING JASIEL Organization [facility] Address [address] [place] [address] Care Team Providers Care Bilingual Customer Service Specialist Name Role Phone JASIEL KENDRICK Unavailable PROBLEMS Type Condition ICD9-CM Code OGN74-WE Code Onset Dates Condition Status SNOMED Code Problem Acquired hypothyroidism E03.9 Active 294714458 Problem Type 2 diabetes mellitus with diabetic chronic kidney disease E11.22 Active 00082296 Problem Restless leg syndrome G25.81 Active 76237594 Problem Mixed incontinence N39.46 Active 027802024 Problem Hypercalcemia E83.52 Active 74195336 Problem Low back pain M54.5 Active 691973959 Problem Chronic kidney disease, stage 1 N18.1 Active 296458223 Problem Bilateral carotid artery disease I77.9 Active 829454289 Problem Osteoarthritis of spine with radiculopathy, cervical region M47.22 Active 101496922 Problem Coronary artery disease involving [place] coronary artery of [place] heart without angina pectoris I25.10 Active [id number] Problem Essential hypertension I10 Active 05622808 Problem Renal insufficiency N28.9 Active 314830800 Problem Type 2 diabetes mellitus without complication, without long-term current use of insulin E11.9 Active 718493394 Problem Vitamin D deficiency E55.9 Active 93195222 Problem Mixed hyperlipidemia E78.2 Active [id number] ALLERGIES No Information ENCOUNTERS Encounter Location Date Diagnosis [facility] [address] [facility] [id number] [address] Mar, [facility] [address], [place] [address] Mar, [facility] [id number] [address] Mar, Low back pain M54.5 ; Acquired hypothyroidism E03.9 ; Coronary artery disease involving [place] coronary artery of [place] heart without angina pectoris I25.10 ; Mixed hyperlipidemia E78.[address] [facility] [address] [address] [id number] [place] [address]- [address]23 Mar, [place] [address] [address]- [address] Feb, Vertigo R42 [place] [address] [address]- 1479 Feb, [place] [address] [address]- 6886 Feb, Low back pain M54.5 [place] [address] [address]- 1783 Feb, Essential hypertension I10 ; Mixed hyperlipidemia E78.2 ; Coronary artery disease involving [place] coronary artery of [place] heart without angina pectoris I25.10 ; Screening for breast cancer Z12.31 and Mixed incontinence N39.46 [place] [address] [address]- [address] Jan, [place] [address] [address]- [address] Jan, Coronary artery disease involving [place] coronary artery of [place] heart without angina pectoris I25.10 [place] [address] [address] [id number] [place] [address] 66134- 7225 Jan, Low back pain M54.5 and Coronary artery disease involving [place] coronary artery of [place] heart without angina pectoris I25.10 [place] [address] [place] [id number] [place] [address] 39615- 8940 Dec, Acquired hypothyroidism E03.9 and Vertigo R42 [place] [address] 96146- 4925 Dec, Low back pain M54.5 and Dermatitis L30.9 [place] [address] 01646- 4815 Nov, Coronary artery disease involving [place] coronary artery of [place] heart without angina pectoris I25.10 [facility] [address], [place] [address] 16 Nov, 2017 Acquired hypothyroidism E03.[address] [facility] [id number] [place] [address] 33085- 4523 Nov, Encounter for well woman exam Z01.419 ; Screening for osteoporosis Z13.820 and Screening for colon cancer Z12.11 [facility] [id number] [place] [address] 69498- 9454 Oct, Coronary artery disease involving [place] coronary artery of [place] heart without angina pectoris I25.10 [facility] [id number] [place] [address] 16[address]- 7377 September, [facility] [id number] [place] [address] 03412- 8741 September, [facility] [id number] [place] [address] 99920- 4544 Aug, Type 2 diabetes mellitus without complication, without long- term current use of insulin E11.9 ; Essential hypertension I10 ; Acquired hypothyroidism E03.9 and Low back pain M54.5 [facility] [id number] [place] [address] 76942- 3853 Aug, [facility] [id number] [place] [address] 61155- 7163 Aug, [facility] [id number] [place] [address] 19170- 0510 Jul, [facility] [id number] [place] [address] 89272- 5456 Jul, Coronary artery disease involving [place] coronary artery of [place] heart without angina pectoris I25.10 [facility] [id number] [place] [address] 81127- 2227 Jun, Low back pain M54.5 and Essential hypertension I10 [facility] [address] [place] [address] 5[address] Jun, Head cold J00 [place] [id number] [place] [address] 06213- 6917 May, [place] [id number] [place] [address] 19013- 0226 14 Apr, 2017 Type 2 diabetes mellitus without complication, without long- term current use of insulin E11.9 [place] [address] [place] [id number] [place] [address] 30312- 2453 Apr, Type 2 diabetes mellitus without complication, without long- term current use of insulin E11.9 [place] [address] [address] [id number] [place] [address] 36032- 3987 Apr, Essential hypertension I10 [place] [address] [id number] [place] [address] 64138- 5956 Mar, [place] [id number] [place] [address] 80278- 1965 Mar, [place] [id number] [place] [address] 86290- 2708 Mar, Osteoarthritis of spine with radiculopathy, cervical region M47.22 [place] [id number] [place] [address] 06998- 7709 Mar, [place] [address] [id number] [place] [address] 10441- 9715 Feb, [place] [address] [address] [id number] [place] [address] 99580- 7909 Feb, Screening breast examination Z12.31 ; Bilateral carotid artery disease I77.9 ; Low back pain M54.5 ; Osteoarthritis of spine with radiculopathy, cervical region M47.22 ; Renal insufficiency N28.9 ; Vitamin D deficiency E55.9 ; Restless leg syndrome G25.81 ; Acquired hypothyroidism E03.9 ; Coronary artery disease involving [place] coronary artery of [place] heart without angina pectoris I25.10 ; Vertigo R42 ; Essential hypertension I10 ; Type 2 diabetes mellitus with diabetic chronic kidney disease E11.22 and Encounter for immunization Z23 [place] [address] [id number] [place] [address] 29235- 5914 Jan, [place] [id number] [place] [address] 41456- 4550 20 Jan, 2017 Type 2 diabetes mellitus without complication, without long- term current use of insulin E11.9 ; Low back pain M54.5 ; Osteoarthritis of spine with radiculopathy, cervical region M47.22 ; Renal insufficiency N28.9 ; Vitamin D deficiency E55.9 ; Restless leg syndrome G25.81 ; Bilateral carotid artery disease I77.9 ; Acquired hypothyroidism E03.9 ; Coronary artery disease involving [place] coronary artery of [place] heart without angina pectoris I25.10 and Lipoma of back D17.1 [place] [id number] [place] [address] 49613- 8938 Jan, Type 2 diabetes mellitus without complication, without long- term current use of insulin E11.9 [place] [address] [place] [address] [id number] [place] [address] 88528- 0646 Dec, Osteoarthritis of spine with radiculopathy, cervical region M47.22 [place] [address] [address] [id number] [place] [address] 24017- 0981 Nov, [place] [id number] [place] [address] 56015- 1526 Nov, Low back pain M54.5 and Osteoarthritis of spine with radiculopathy, cervical region M47.22 [place] [id number] [place] [address] 39031- 1557 05 Nov, 2016 Osteoarthritis of spine with radiculopathy, cervical [...] E03.9 ; Coronary artery disease involving [place] coronary artery of [place] heart without angina pectoris I25.10 ; Hypercalcemia E83.52 and Left foot pain M79.672 [facility] [id number] [place] [address] 87933- 4276 Oct, [facility] [address] 45819- 1683 Oct, Osteoarthritis of spine with radiculopathy, cervical region M47.22 [place] [address] [id number] [place] [address] 99090- 6787 Oct, Abnormal blood chemistry R79.9 [place] [address] [address] [id number] [place] [address] 33159- 6214 September, Osteoarthritis of spine with radiculopathy, cervical region M47.22 ; Essential hypertension I10 ; Renal insufficiency N28.9 ; Type 2 diabetes mellitus without complication, without long-term current use of insulin E11.9 ; Vitamin D deficiency E55.9 ; Paresthesia of both hands R20.2 ; Low back pain M54.5 ; Restless leg syndrome G25.81 and Dizziness R42 [place] [id number] [place] [address] 06702- 3267 September, [facility] [id number] [place] [address] 90438- 1633 September, [facility] [id number] [place] [address] 64586- 7705 September, [facility] [id number] [place] [address] 53956- 9537 September, [facility] [address] [id number] [place] [address] 78754- 2347 Aug, [facility] [id number] [place] [address] 31277- 5698 Aug, [facility] [id number] [place] [address] 21125- 8761 Aug, [place] [id number] [place] [address] 63611- 6333 Aug, [place] [address] [place] [address] [id number] [place] [address] 6687 Aug, Osteoarthritis of spine with radiculopathy, cervical region M47.22 [place] [address] [place] [id number] [place] [address] 52864- 8454 05 Aug, 2016 Essential hypertension I10 ; Renal insufficiency N28.9 ; Type 2 diabetes mellitus without complication, without long-term current use of insulin E11.9 ; Vitamin D deficiency E55.9 ; Paresthesia of both hands R20.2 ; Low back pain M54.5 ; Restless leg syndrome G25.81 ; Osteoarthritis of spine with radiculopathy, cervical region M47.22 and Dizziness R42 [place] [id number] [place] [address] 38782- 6831 Jul, [place] [id number] [place] [address] 21861- 2886 Jul, [place] [id number] [place] [address] 57165- 8570 Jul, Essential hypertension I10 ; Paresthesia of both hands R20.2 ; Upper respiratory tract infection, unspecified type J06.9 and Low back pain M54.5 [place] [address], [place] [address]- 7884 15 Jul, 2016 [place] [id number] [place] [address] 99280- 0906 10 Jul, 2016 [place] [id number] [place] [address] 52340- 3470 09 Jul, 2016 Renal insufficiency N28.9 ; Vitamin D deficiency E55.9 ; Type 2 diabetes mellitus without complication, without long-term current use of insulin E11.9 ; Restless leg syndrome G25.81 ; Type 2 diabetes mellitus with diabetic chronic kidney disease E11.22 and Chronic kidney disease, stage [address] [facility] [address], [place] [address]- 6288 Jul, Renal insufficiency N28.9 [facility] [address], [place] [address]- 0862 Jun, [facility] [id number] [place] [address] 30274- 6664 Jun, Renal insufficiency N28.9 ; Vitamin D deficiency E55.9 ; Type 2 diabetes mellitus without complication, without long-term current use of insulin E11.9 ; Restless leg syndrome G25.81 ; Type 2 diabetes mellitus with diabetic chronic kidney disease E11.22 and Chronic kidney disease, stage [address] [facility] [address], [place] [address]- [address]405 Jun, [facility] [id number] [place] [address] 64180- 9359 May, [facility] [id number] [place] [address] 25422- 8471 May, [facility] [id number] [place] [address] 68446- 1175 May, [facility] [address] [address]- 5298 May, [facility] [address] [address]- 5064 May, [facility] [address] [address]- 4039 Apr, Acquired hypothyroidism E03.9 ; Essential hypertension I10 ; Type 2 diabetes mellitus without complication, without long-term current use of insulin E11.9 and Mixed hyperlipidemia E78.2 [facility] [address], [place] [address]- 5376 Apr, Type 2 diabetes mellitus without complication, without long- term current use of insulin E11.9 ; Coronary artery disease involving [place] coronary artery of [place] heart without angina pectoris I25.10 ; Essential hypertension I10 and Acquired hypothyroidism E03.9 [facility] [address] [address]- 8813 21 Apr, 2016 Cellulitis of left lower extremity L03.116 [facility] [id number] [place] [address] 58532- 2039 20 Apr, 2016 Essential hypertension I10 ; Mixed hyperlipidemia E78.2 ; Type 2 diabetes mellitus without complication, without long-term current use of insulin E11.9 ; Acquired hypothyroidism E03.9 ; Cellulitis of left lower extremity L03.116 and Coronary artery disease involving [place] coronary artery of [place] heart without angina pectoris I25.10 [facility] [id number] [place] [address] 55256- 9469 14 Apr, 2016 [facility] [id number] [place] [address] 74287 -3476 Dec, Dermatitis L30.9 [facility] [id number] [place] [address] 67782- 6951 14 Aug, 2014 [facility] [id number] [place] [address] 11158- 1624 Aug, [facility] [id number] [place] [address] 49751- 4014 Jan, [facility] [address], [place] [address]- 0337 Jan, [facility] [address] [place] [address] 98285- 9463 Jun, [facility] [address] [address]- 4121 May, [facility] [id number] [place] [address] 05333116- 9988 May, [facility] [address] [address]- 2154 May, [facility] [id number] [address]- 2611 Apr, [facility] [id number] [address]- 7226 Feb, [facility] [id number] 0332 Feb, [facility] [address] [address]- 8405 Nov, [facility] [address] [address]- 9060 Nov, [facility] [address]- 8218 Nov, [facility] [address] [address]- 8114 Nov, [facility] [address] [address]- 4785 Nov, [facility] [id number] [address]- 9090 Nov, [facility] [id number] [address]- 1200 Nov, IMMUNIZATIONS No Known Immunizations SOCIAL HISTORY [...]
--- OUTSIDE RECORDS SUMMARY | 2018-04-12 11:34 | XMS REPORT ---
Author Author JASIEL KENDRICK [facility] Address [address] [place] [address] Care Team Providers Care Title Investigator Name Role Phone JOANIE KENDRICKTA Unavailable PROBLEMS Type Condition ICD9-CM Code MLZ30-OT Code Onset Dates Condition Status SNOMED Code Problem Acquired hypothyroidism E03.9 Active 623895638 Problem Type 2 diabetes mellitus with diabetic chronic kidney disease E11.22 Active 50699158 Problem Restless leg syndrome G25.81 Active 58753910 Problem Mixed incontinence N39.46 Active 492764831 Problem Hypercalcemia E83.52 Active 91640953 Problem Low back pain M54.5 Active 994675695 Problem Chronic kidney disease, stage 1 N18.1 Active 842171824 Problem Bilateral carotid artery disease I77.9 Active 630027140 Problem Osteoarthritis of spine with radiculopathy, cervical region M47.22 Active 108153934 Problem Coronary artery disease involving y[place] coronary artery of y[place] heart without angina pectoris I25.10 Active 2952849257865 Problem Essential hypertension I10 Active 71820592 Problem Renal insufficiency N28.9 Active 538097605 Problem Type 2 diabetes mellitus without complication, without long-term current use of insulin E11.9 Active 351757743 Problem Vitamin D deficiency E55.9 Active 13512542 Problem Mixed hyperlipidemia E78.2 Active 606013595 ALLERGIES Substance Reaction Event Type Date Status Bydureon leg irritation with knot at inj site Drug Allergy Mar, Active Bactrim DS Unknown Drug Allergy Mar, Active ENCOUNTERS Encounter Location Date Diagnosis [facility] [address] [facility] [id number] [address] Mar, [facility] [id number] [address] Mar, [facility] [id number] [address] Mar, Low back pain M54.5 ; Acquired hypothyroidism E03.9 ; Coronary artery disease involving y[place] coronary artery of [place] heart without angina pectoris I25.10 ; Mixed hyperlipidemia E78.2 and Vertigo R42 [facility] [address] [address] Mar, [facility] [address] [address] Feb, Vertigo R42 [facility] [address] [address] Feb, [place] [address] [address] Feb, Low back pain M54.5 [place] [address] [address] Feb, Essential hypertension I10 ; Mixed hyperlipidemia E78.2 ; Coronary artery disease involving y[place] coronary artery of [place] heart without angina pectoris I25.10 ; Screening for breast cancer Z12.31 and Mixed incontinence N39.46 [place] [address] [address] Jan, [place] [address] [address] Jan, Coronary artery disease involving y[place] coronary artery of [place] heart without angina pectoris I25.10 [facility] [address] [address] Jan, Low back pain M54.5 and Coronary artery disease involving y[place] coronary artery of [place] heart without angina pectoris I25.10 [facility] [address] [address] Dec, Acquired hypothyroidism E03.9 and Vertigo R42 [facility] [address] [address] Dec, Low back pain M54.5 and Dermatitis L30.9 [facility] [address] [id number] [place] [address]- 3458 Nov, Coronary artery disease involving yankton coronary artery of y[place] heart without angina pectoris I25.10 [place] [address] [address] [id number] [place] [address] 36578- 1422 Nov, Acquired hypothyroidism E03.9 and Vertigo R42 [place] [address] [address] [id number] [place] [address] 82226- 2966 Nov, Encounter for well woman exam Z01.419 ; Screening for osteoporosis Z13.820 and Screening for colon cancer Z12.11 [place] [address] [address] [id number] [place] [address]19- 8856 Oct, Coronary artery disease involving y[place] coronary artery of [place] heart without angina pectoris I25.10 [place] [address] [address] [id number] [place] [address] 29713- 9878 September, [place] [address] [id number] [place] [address] 36585- 3727 September, [place] [address] [address] [id number] [place] [address] 25742- 0419 Aug, Type 2 diabetes mellitus without complication, without long- term current use of insulin E11.9 ; Essential hypertension I10 ; Acquired hypothyroidism E03.9 and Low back pain M54.5 [place] [address] [id number] [place] [address] 15793- 3223 Aug, [place] [address] [id number] [place] [address] 23101- 5534 Aug, [place] [address] [id number] [place] [address] 14938- 3765 Jul, [place] [address] [id number] [place] [address] 31458- 4436 Jul, Coronary artery disease involving y[place] coronary artery of y[place] heart without angina pectoris I25.10 [place] [address] [id number] [place] [address] 00391- 5197 Jun, Low back pain M54.5 and Essential hypertension I10 [place] [address] [address] [id number] [place] [address] 29036- 7584 Jun, Head cold J00 [place] [address] [address] [id number] [place] [address] 21907- 6605 May, [place] [address] [id number] [place] [address] 84083- 8898 Apr, Type 2 diabetes mellitus without complication, without long- term current use of insulin E11.9 [place] [id number] [place] [address] 17631- 1770 Apr, Type 2 diabetes mellitus without complication, without long- term current use of insulin E11.9 [place] [address] [address] [id number] [place] [address] 79855- 7633 Apr, Essential hypertension I10 [place] [address] [place] [address] [id number] [place] [address] 44649- 8305 Mar, [place] [address] [place] [address] [id number] [place] [address] 35973- 5822 Mar, [place] [address] [place] [address] [id number] [place] [address] 54185- 0653 Mar, Osteoarthritis of spine with radiculopathy, cervical region M47.22 [place] [address] [place] [id number] [place] [address] 57722- 8106 Mar, [place] [address] [id number] [place] [address] 23423- 7604 Feb, [place] [address] [id number] [place] [address] 06424- 5283 Feb, Screening breast examination Z12.31 ; Bilateral carotid artery disease I77.9 ; Low back pain M54.5 ; Osteoarthritis of spine with radiculopathy, cervical region M47.22 ; Renal insufficiency N28.9 ; Vitamin D deficiency E55.9 ; Restless leg syndrome G25.81 ; Acquired hypothyroidism E03.9 ; Coronary artery disease involving y[place] coronary artery of y[place] heart without angina pectoris I25.10 ; Vertigo R42 ; Essential hypertension I10 ; Type 2 diabetes mellitus with diabetic chronic kidney disease E11.22 and Encounter for immunization Z23 [place] [address] [address] [id number] [place] [address] 0[address]63- 4266 Jan, [place] [address] [address] Jan, Type 2 diabetes mellitus without complication, without long- term current use of insulin E11.9 ; Low back pain M54.5 ; Osteoarthritis of spine with radiculopathy, cervical region M47.22 ; Renal insufficiency N28.9 ; Vitamin D deficiency E55.9 ; Restless leg syndrome G25.81 ; Bilateral carotid artery disease I77.9 ; Acquired hypothyroidism E03.9 ; Coronary artery disease involving y[place] coronary artery of y[place] heart without angina pectoris I25.10 and Lipoma of back D17.1 [place] [address] [address]- 12[address] Jan, Type 2 diabetes mellitus without complication, without long- term current use of insulin E11.9 [place] [address] [address]- 7607 Dec, Osteoarthritis of spine with radiculopathy, cervical region M47.22 [place] [address] [address] [id number] [place] [address] 05376- 5837 Nov, [place] [address] [address]- 1145 Nov, Low back pain M54.5 and Osteoarthritis of spine with radiculopathy, cervical region M47.22 [place] [address] [address]- 6769 Nov, Osteoarthritis of spine with radiculopathy, cervical [...] hypothyroidism E03.9 ; Coronary artery disease involving y[place] coronary artery of y[place] heart without angina pectoris I25.10 ; Hypercalcemia E83.52 and Left foot pain M79.672 [place] [address] [address] [id number] [place] [address] 53382- 7134 Oct, [place] [address] [place] [address] [id number] [place] [address] 48159- 9833 Oct, Osteoarthritis of spine with radiculopathy, cervical region M47.22 [place] [address] [id number] [place] [address] 79527- 5196 Oct, Abnormal blood chemistry R79.9 [place] [address] [address] [id number] [place] [address] 79210- 6819 September, Osteoarthritis of spine with radiculopathy, cervical region M47.22 ; Essential hypertension I10 ; Renal insufficiency N28.9 ; Type 2 diabetes mellitus without complication, without long-term current use of insulin E11.9 ; Vitamin D deficiency E55.9 ; Paresthesia of both hands R20.2 ; Low back pain M54.5 ; Restless leg syndrome G25.81 and Dizziness R42 [place] [address] [place] [address] [id number] [place] [address] 38237- 8596 September, [place] [address] [place] [id number] [place] [address] 33174- 5180 September, [place] [address] [place] [id number] [place] [address] 54985- 9323 September, [place] [address] [place] [address] [id number] [place] [address] 38750- 3269 September, [place] [address] [place] [address] [id number] [place] [address] 59543- 9619 Aug, [place] [address] [id number] [address] Aug, [facility] [address] [address] Aug, [facility] [id number] [place] [address] 04404- 3964 Aug, [facility] [id number] [place] [address] 68865- 4367 Aug, Osteoarthritis of spine with radiculopathy, cervical region M47.22 [place] [id number] [place] [address] 66702- 2718 05 Aug, 2016 Essential hypertension I10 ; Renal insufficiency N28.9 ; Type 2 diabetes mellitus without complication, without long-term current use of insulin E11.9 ; Vitamin D deficiency E55.9 ; Paresthesia of both hands R20.2 ; Low back pain M54.5 ; Restless leg syndrome G25.81 ; Osteoarthritis of spine with radiculopathy, cervical region M47.22 and Dizziness R42 [place] [id number] [place] [address] 45015- 5612 Jul, [place] [address] [id number] [place] [address] 90802- 8491 Jul, [place] [address] [place] [address] 32938- 3242 Jul, Essential hypertension I10 ; Paresthesia of both hands R20.2 ; Upper respiratory tract infection, unspecified type J06.9 and Low back pain M54.5 [place] [address] [address]- [address] Jul, [place] [address] [id number] [place] [address] 70938- 2979 Jul, [place] [address] [address]- [address] 09 Jul, 2016 Renal insufficiency N28.9 ; Vitamin D deficiency E55.9 ; Type 2 diabetes mellitus without complication, without long-term current use of insulin E11.9 ; Restless leg syndrome G25.81 ; Type 2 diabetes mellitus with diabetic chronic kidney disease E11.22 and Chronic kidney disease, stage 1 N18.1 [facility] [id number] [place] [address] 27743- 1100 Jul, Renal insufficiency N28.9 [facility] [id number] [place] [address] 68589- 3598 Jun, [facility] [id number] [place] [address] 11138- 4335 Jun, Renal insufficiency N28.9 ; Vitamin D deficiency E55.9 ; Type 2 diabetes mellitus without complication, without long-term current use of insulin E11.9 ; Restless leg syndrome G25.81 ; Type 2 diabetes mellitus with diabetic chronic kidney disease E11.22 and Chronic kidney disease, stage 1 N18.1 [facility] [id number] [place] [address] 76444- 4638 Jun, [facility] [id number] [place] [address] 83603- 5834 May, [facility] [address] [id number] [place] [address] 01493- 2385 May, [facility] [address] [place] [address] 71859- 8808 May, [facility] [address] [id number] [place] [address] 13947- 4321 May, [facility] [address] [place] [address] 66213- 9907 May, [facility] [id number] [place] [address] 04595- 2662 Apr, Acquired hypothyroidism E03.9 ; Essential hypertension I10 ; Type 2 diabetes mellitus without complication, without long-term current use of insulin E11.9 and Mixed hyperlipidemia E78.2 [facility] [id number] [place] [address] 12089- 4819 Apr, Type 2 diabetes mellitus without complication, without long- term current use of insulin E11.9 ; Coronary artery disease involving y[place] coronary artery of y[place] heart without angina pectoris I25.10 ; Essential hypertension I10 and Acquired hypothyroidism E03.9 [facility] [address] [address]- 54[address] Apr, Cellulitis of left lower extremity L03.116 [facility] [id number] [place] [address] 09407- 9935 20 Apr, 2016 Essential hypertension I10 ; Mixed hyperlipidemia E78.2 ; Type 2 diabetes mellitus without complication, without long-term current use of insulin E11.9 ; Acquired hypothyroidism E03.9 ; Cellulitis of left lower extremity L03.116 and Coronary artery disease involving y[place] coronary artery of y[place] heart without angina pectoris I25.10 [facility] [id number] [place] [address] 24566- 3257 Apr, [facility] [id number] [place] [address] 09457 -4094 Dec, Dermatitis L30.9 [facility] [id number] [place] [address] 82730- 8271 Aug, [facility] [id number] [place] [address] 12172- 0489 Aug, [facility] [address] [place] [address] 78787- 0800 Jan, [facility] [id number] [place] [address] 68779- 0605 Jan, [facility] [id number] [place] [address] 68838- 3488 Jun, [facility] [id number] [place] [address] 518528- 9549 May, [facility] [id number] [place] [address] 165529- 9051 May, [facility] [address] [place] [address]- 7078 May, [facility] [id number] [address] Apr, [facility] [address] [address]- 4236 Feb, [facility] [address] 9714 Feb, [facility] [address] [address]- 0131 Nov, [facility] [address] 7098 Nov, [facility] [address] [address]- 1232 Nov, [facility] [address] [address]- 5479 Nov, [facility] [address] [address]- 3923 Nov, [facility] [id number] [address]- 9162 Nov, [facility] [id number] [address]- 5945 Nov, IMMUNIZATIONS No Known Immunizations SOCIAL HISTORY Never Assessed REASON FOR VISIT Went to the hospital Saturday for high blood pressure, needs medications refilled, and is having pain in her back Makenna Steven MA PLAN OF CARE Activity Details Follow Up 3 Months Reason:HTN VITAL SIGNS Height 64.5 in 2018-04-09 Weight 193.9 lbs 2018-04-09 Temperature 97.0 degrees Fahrenheit 2018-04-09 Heart Rate 61 bpm 2018-04-09 Respiratory Rate 20 2018-04-09 BMI 32.77 kg/m2 2018-04-09 Blood pressure systolic 192 mmHg 2018-04-09 Blood pressure diastolic 80 mmHg 2018-04-09 MEDICATIONS Medication Instructions Dosage Frequency Start Date End Date Duration Status Lisinopril 10 mg Orally Once a day TAKE ONE TABLET BY MOUTH ONCE DAILY 24h Active PredniSONE 20 mg Orally Once a day 2 tablet 24h 28 Mar, 2018 5 days Active ProAir HFA 108 (90 Base) MCG/ACT Inhalation 3 times a day 2 puffs as needed 8h Jul, 10 days Active Hydrochlorothiazide 25 MG TAKE ONE TABLET BY MOUTH ONCE DAILY 90 Active Vitamin B-12 50 MCG Active Levothyroxine Sodium 75 mcg Orally Once a day 1 tablet on an empty stomach in the morning 24h 90 Active Clopidogrel Bisulfate 75 MG Orally Once a day 1 tablet 24h Active Travel Sickness 25 MG TAKE ONE TABLET BY MOUTH THREE TIMES DAILY NEEDED 28 Active Rosuvastatin Calcium 10 mg Orally Once a day 2 tablets 24h Active Oxybutynin Chloride ER 5 mg Orally Once a day 1 tablet 24h Feb, 7 May, 2018 30 day(s) Active Requip 0.5 MG Orally Once a day 1 tablet 24h Active Fenofibrate 145 MG Orally Once a day 1 tablet 24h 90 Active Trulicity 0.75 MG/0.5ML INJECT 0.5 MLS SUBCUTANEOUSLY ONCE WEEKLY Active Meclizine HCl 25 MG Orally 3 times a day 1 tablet as needed 8h Active Pen Edwards 30G X 5 MM as directed 24h Active Isosorbide Mononitrate 60 mg Orally Once a day 1 tablet 24h 90 days Active Hydrocodone-Acetaminophen 5-325 MG Orally 3 times a day 1/2-1 tablet as needed 8h 17 Nov, 2017 28 days Active BD Pen Needle Mini U/F 31G X 5 MM USE ONCE DAILY 30 Active Flonase Allergy Relief 50 MCG/ACT Nasally Once a day 1 spray in each nostril 24h 20 Jun, 2017 30 day(s) Active Lancets 30G - as directed Apr, Active Fish Oil 1000 MG Orally twice a day 1 capsule 12h Active Cyclobenzaprine HCl 10 mg Orally Once a day 1/2 to 1 tablet as needed at bedtime 24h 30 Active Aspirin 81 MG Orally Once a day 1 tablet 24h Active Triamcinolone Acetonide 0.1 % Externally Twice a day 1 application to affected area 12h Dec, 30 days Active Potassium Chloride Corie ER 10 MEQ Orally Once a day 1 tablet with food 24h Active Gabapentin 300 MG Orally three times a day 1 capsule 8h Active Metoprolol Tartrate 25 MG Orally Once a day 1/2 tablet 24h Active True Metrix Blood Glucose Test - TEST ONCE A DAY AND ONCE MORE NEEDED 25 Active RESULTS No Results PROCEDURES No Known [...]
--- OUTSIDE RECORDS SUMMARY | 2018-04-12 11:34 | XMS REPORT ---
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 Name Role Phone JASIEL KENDRICK Unavailable PROBLEMS Type Condition ICD9-CM Code FGV51-CF Code Onset Dates Condition Status SNOMED Code Problem Acquired hypothyroidism E03.9 Active 972205237 Problem Type 2 diabetes mellitus with diabetic chronic kidney disease E11.22 Active 43063526 Problem Restless leg syndrome G25.81 Active 80818686 Problem Mixed incontinence N39.46 Active 642960126 Problem Hypercalcemia E83.52 Active 46077248 Problem Low back pain M54.5 Active 426684451 Problem Chronic kidney disease, stage 1 N18.1 Active 695596211 Problem Bilateral carotid artery disease I77.9 Active 672377176 Problem Osteoarthritis of spine with radiculopathy, cervical region M47.22 Active 465248211 Problem Coronary artery disease involving eek coronary artery of eek heart without angina pectoris I25.10 Active 2784443081119 Problem Essential hypertension I10 Active 49909681 Problem Renal insufficiency N28.9 Active 863246374 Problem Type 2 diabetes mellitus without complication, without long-term current use of insulin E11.9 Active 714552917 Problem Vitamin D deficiency E55.9 Active 67135685 Problem Mixed hyperlipidemia E78.2 Active 426932064 ALLERGIES No Information ENCOUNTERS Encounter Location Date Diagnosis [facility] [address] [facility] [id number] [address] Mar, [facility] [address] [address] Mar, [facility] [id number] [address] Mar, Low back pain M54.5 ; Acquired hypothyroidism E03.9 ; Coronary artery disease involving eek coronary artery of eek heart without angina pectoris I25.10 ; Mixed hyperlipidemia E78.2 and Vertigo R42 [facility] [id number] [place] [address] 34059- 7287 Mar, [place] [address] [address] Feb, Vertigo R42 [place] [address] 17753- 6373 Feb, [place] [address] 44061- 6650 Feb, Low back pain M54.5 [place] [address] 11943- 0635 Feb, Essential hypertension I10 ; Mixed hyperlipidemia E78.2 ; Coronary artery disease involving eek coronary artery of eek heart without angina pectoris I25.10 ; Screening for breast cancer Z12.31 and Mixed incontinence N39.46 [place] [address] [address]- [address] Jan, [place] [address] 46[address]- 1439 Jan, Coronary artery disease involving eek coronary artery of eek heart without angina pectoris I25.10 [place] [id number] [place] [address] 52359- 1206 Jan, Low back pain M54.5 and Coronary artery disease involving eek coronary artery of eek heart without angina pectoris I25.10 [place] [id number] [place] [address] 27007- 0540 Dec, Acquired hypothyroidism E03.9 and Vertigo R42 [place] [address] 14019- 9999 Dec, Low back pain M54.5 and Dermatitis L30.9 [place] [address] 30830- 4443 Nov, Coronary artery disease involving eek coronary artery of eek heart without angina pectoris I25.10 [facility] [address], [place] [address] 16 Nov, 2017 Acquired hypothyroidism E03.9 and Vertigo R42 [facility] [id number] [place] [address] 25551- 5254 Nov, Encounter for well woman exam Z01.419 ; Screening for osteoporosis Z13.820 and Screening for colon cancer Z12.11 [facility] [id number] [place] [address] 94245- 0589 Oct, Coronary artery disease involving eek coronary artery of eek heart without angina pectoris I25.10 [facility] [id number] [place] [address] 65692- 6250 September, [facility] [id number] [place] [address] 55356- 9176 September, [facility] [id number] [place] [address] 20705- 6624 Aug, Type 2 diabetes mellitus without complication, without long- term current use of insulin E11.9 ; Essential hypertension I10 ; Acquired hypothyroidism E03.9 and Low back pain M54.5 [facility] [id number] [place] [address] 12138- 6499 Aug, [facility] [id number] [place] [address] 09744- 3378 Aug, [facility] [id number] [place] [address] 48637- 7866 Jul, [facility] [id number] [place] [address] 97464- 3972 Jul, Coronary artery disease involving eek coronary artery of eek heart without angina pectoris I25.10 [facility] [id number] [place] [address] 55856- 9199 Jun, Low back pain M54.5 and Essential hypertension I10 [facility] [address] [place] [address] 48[address] Jun, Head cold J00 [place] [id number] [place] [address] 32274- 3232 May, [place] [id number] [place] [address] 47466- 0818 14 Apr, 2017 Type 2 diabetes mellitus without complication, without long- term current use of insulin E11.9 [place] [id number] [place] [address] 01777- 0298 Apr, Type 2 diabetes mellitus without complication, without long- term current use of insulin E11.9 [place] [id number] [place] [address] 17219- 8119 Apr, Essential hypertension I10 [place] [id number] [place] [address] 84378- 2766 Mar, [place] [id number] [place] [address] 88783- 7046 Mar, [place] [id number] [place] [address] 83055- 6093 Mar, Osteoarthritis of spine with radiculopathy, cervical region M47.22 [place] [id number] [place] [address] 12801- 8975 Mar, [place] [id number] [place] [address] 77504- 3341 Feb, [place] [id number] [place] [address] 48427- 1702 Feb, Screening breast examination Z12.31 ; Bilateral carotid artery disease I77.9 ; Low back pain M54.5 ; Osteoarthritis of spine with radiculopathy, cervical region M47.22 ; Renal insufficiency N28.9 ; Vitamin D deficiency E55.9 ; Restless leg syndrome G25.81 ; Acquired hypothyroidism E03.9 ; Coronary artery disease involving eek coronary artery of eek heart without angina pectoris I25.10 ; Vertigo R42 ; Essential hypertension I10 ; Type 2 diabetes mellitus with diabetic chronic kidney disease E11.22 and Encounter for immunization Z23 [place] [id number] [place] [address] 26341- 3501 Jan, [place] [id number] [place] [address] 57990- 9380 20 Jan, 2017 Type 2 diabetes mellitus without complication, without long- term current use of insulin E11.9 ; Low back pain M54.5 ; Osteoarthritis of spine with radiculopathy, cervical region M47.22 ; Renal insufficiency N28.9 ; Vitamin D deficiency E55.9 ; Restless leg syndrome G25.81 ; Bilateral carotid artery disease I77.9 ; Acquired hypothyroidism E03.9 ; Coronary artery disease involving eek coronary artery of eek heart without angina pectoris I25.10 and Lipoma of back D17.1 [place] [id number] [place] [address] 96151- 8945 Jan, Type 2 diabetes mellitus without complication, without long- term current use of insulin E11.9 [place] [id number] [place] [address] 43281- 9291 Dec, Osteoarthritis of spine with radiculopathy, cervical region M47.22 [place] [id number] [place] [address] 14477- 8613 Nov, [place] [id number] [place] [address] 64881- 6149 Nov, Low back pain M54.5 and Osteoarthritis of spine with radiculopathy, cervical region M47.22 [place] [id number] [place] [address] 42026- 5366 05 Nov, 2016 Osteoarthritis of spine with [...] hypothyroidism E03.9 ; Coronary artery disease involving eek coronary artery of eek heart without angina pectoris I25.10 ; Hypercalcemia E83.52 and Left foot pain M79.672 [facility] [id number] [place] [address] 39686- 1633 Oct, [facility] [address] 97543- 6276 Oct, Osteoarthritis of spine with radiculopathy, cervical region M47.22 [place] [id number] [place] [address] 49617- 9109 Oct, Abnormal blood chemistry R79.9 [place] [id number] [place] [address] 33620- 9106 September, Osteoarthritis of spine with radiculopathy, cervical region M47.22 ; Essential hypertension I10 ; Renal insufficiency N28.9 ; Type 2 diabetes mellitus without complication, without long-term current use of insulin E11.9 ; Vitamin D deficiency E55.9 ; Paresthesia of both hands R20.2 ; Low back pain M54.5 ; Restless leg syndrome G25.81 and Dizziness R42 [place] [id number] [place] [address] 81932- 0834 September, [facility] [id number] [place] [address] 78385- 6469 September, [facility] [id number] [place] [address] 48369- 5543 September, [facility] [id number] [place] [address] 86529- 6242 September, [facility] [id number] [place] [address] 16676- 5609 Aug, [facility] [id number] [place] [address] 42151- 5390 Aug, [facility] [id number] [place] [address] 91849- 7987 Aug, [place] [id number] [place] [address] 31797- 0881 Aug, [place] [id number] [place] [address] Aug, Osteoarthritis of spine with radiculopathy, cervical region M47.22 [place] [id number] [place] [address] 91207- 4815 05 Aug, 2016 Essential hypertension I10 ; Renal insufficiency N28.9 ; Type 2 diabetes mellitus without complication, without long-term current use of insulin E11.9 ; Vitamin D deficiency E55.9 ; Paresthesia of both hands R20.2 ; Low back pain M54.5 ; Restless leg syndrome G25.81 ; Osteoarthritis of spine with radiculopathy, cervical region M47.22 and Dizziness R42 [place] [id number] [place] [address] 59278- 3994 Jul, [place] [id number] [place] [address] 87144- 0483 Jul, [place] [id number] [place] [address] 15913- 6951 Jul, Essential hypertension I10 ; Paresthesia of both hands R20.2 ; Upper respiratory tract infection, unspecified type J06.9 and Low back pain M54.5 [place] [address], [place] [address]- 9039 15 Jul, 2016 [place] [id number] [place] [address] 15183- 5356 10 Jul, 2016 [place] [id number] [place] [address] 83944- 2367 09 Jul, 2016 Renal insufficiency N28.9 ; Vitamin D deficiency E55.9 ; Type 2 diabetes mellitus without complication, without long-term current use of insulin E11.9 ; Restless leg syndrome G25.81 ; Type 2 diabetes mellitus with diabetic chronic kidney disease E11.22 and Chronic kidney disease, stage 1 N18.1 [facility] [address], [place] [address]- 9295 Jul, Renal insufficiency N28.9 [facility] [address], [place] [address]- 3631 Jun, [facility] [id number] [place] [address] 58884- 2963 Jun, Renal insufficiency N28.9 ; Vitamin D deficiency E55.9 ; Type 2 diabetes mellitus without complication, without long-term current use of insulin E11.9 ; Restless leg syndrome G25.81 ; Type 2 diabetes mellitus with diabetic chronic kidney disease E11.22 and Chronic kidney disease, stage 1 N18.1 [facility] [address], [place] [address]- 9922 Jun, [facility] [id number] [place] [address] 29542- 8510 May, [facility] [id number] [place] [address] 12858- 3092 May, [facility] [id number] [place] [address] 66244- 2399 May, [facility] [address] [address]- 4204 May, [facility] [address], [place] [address]- 3786 May, [facility] [address], [place] [address]- 7683 Apr, Acquired hypothyroidism E03.9 ; Essential hypertension I10 ; Type 2 diabetes mellitus without complication, without long-term current use of insulin E11.9 and Mixed hyperlipidemia E78.2 [facility] [address], [place] [address]- 4322 Apr, Type 2 diabetes mellitus without complication, without long- term current use of insulin E11.9 ; Coronary artery disease involving eek coronary artery of eek heart without angina pectoris I25.10 ; Essential hypertension I10 and Acquired hypothyroidism E03.9 [facility] [address], [place] [address]- 4531 21 Apr, 2016 Cellulitis of left lower extremity L03.116 [facility] [id number] [place] [address] 88955- 4579 20 Apr, 2016 Essential hypertension I10 ; Mixed hyperlipidemia E78.2 ; Type 2 diabetes mellitus without complication, without long-term current use of insulin E11.9 ; Acquired hypothyroidism E03.9 ; Cellulitis of left lower extremity L03.116 and Coronary artery disease involving eek coronary artery of eek heart without angina pectoris I25.10 [facility] [id number] [place] [address] 54980- 3857 14 Apr, 2016 [facility] [id number] [place] [address] 71040 -3045 Dec, Dermatitis L30.9 [facility] [id number] [place] [address] 38486- 5142 14 Aug, 2014 [facility] [id number] [place] [address] 64427- 8678 Aug, [facility] [id number] [place] [address] 98799- 0060 Jan, [facility] [address], [place] [address]- 7458 Jan, [facility] [address] [place] [address] 38946- 2915 Jun, [facility] [address], [place] [address]- 8995 May, [facility] [id number] [place] [address] [id number]- 2415 May, [facility] [address], [place] [address]- 7385 May, [facility] [address] [address]- 9546 Apr, [facility] [id number], [place] [address]- 5180 Feb, [facility] [address], [place] [address]- 5586 Feb, [facility] [address] [address]- 7600 Nov, [facility] [address], [place] [address]- 5365 Nov, [facility] [address], [place] [address]- 7960 Nov, [facility] [address], [place] [address]- 0566 Nov, [facility] [address], [place] [address]- 3446 Nov, [facility] [id number], [place] [address]- 4754 Nov, [facility] [id number], [place] [address]- 3995 Nov, IMMUNIZATIONS No Known Immunizations SOCIAL HISTORY Never Assessed REASON FOR VISIT refill request PLAN OF CARE VITAL SIGNS MEDICATIONS Medication Instructions Dosage Frequency Start Date End Date Duration Status Cyclobenzaprine HCl 10 mg Orally Once a day 1/2 to 1 tablet as needed at bedtime 24h 30 Active RESULTS No Results PROCEDURES No [...]
--- OUTSIDE RECORDS SUMMARY | 2018-04-12 11:35 | XMS REPORT ---
Author Author [facility] Address [address] [place] [address] Care Team Providers Care Operations Manager/Coordinator Name Role Phone JASIEL KENDRICK Unavailable PROBLEMS Type Condition ICD9-CM Code [id number] Code Onset Dates Condition Status SNOMED Code Problem Acquired hypothyroidism E03.9 Active 124830936 Problem Type 2 diabetes mellitus with diabetic chronic kidney disease E11.22 Active 65045532 Problem Restless leg syndrome G25.81 Active 16703733 Problem Mixed incontinence N39.46 Active 441213462 Problem Hypercalcemia E83.52 Active 69196851 Problem Low back pain M54.5 Active 421066858 Problem Chronic kidney disease, stage 1 N18.1 Active 917863380 Problem Bilateral carotid artery disease I77.9 Active 223682502 Problem Osteoarthritis of spine with radiculopathy, cervical region M47.22 Active 268526437 Problem Coronary artery disease involving [place] coronary artery of [place] heart without angina pectoris I25.10 Active 7824972562624 Problem Essential hypertension I10 Active 17252933 Problem Renal insufficiency N28.9 Active 793888101 Problem Type 2 diabetes mellitus without complication, without long-term current use of insulin E11.9 Active 791213835 Problem Vitamin D deficiency E55.9 Active 14225592 Problem Mixed hyperlipidemia E78.2 Active [id number] ALLERGIES No Information ENCOUNTERS Encounter Location Date Diagnosis [facility] [id number] [address] Mar, [facility] [id number] [place] [address] 08911- 6277 Mar, [facility] [address] [address] 24 Feb, 2018 Vertigo R42 [facility] [address] [address] 4[address] Feb, [facility] [place] [id number] [place] [address] 53600- 3075 Feb, Low back pain M54.5 [place] [id number] [place] [address] 20742- 9895 Feb, Essential hypertension I10 ; Mixed hyperlipidemia E78.2 ; Coronary artery disease involving [place] coronary artery of [place] heart without angina pectoris I25.10 ; Screening for breast cancer Z12.31 and Mixed incontinence N39.46 [place] [id number] [place] [address] 47082- 7291 Jan, [place] [address] [address]- 8018 Jan, Coronary artery disease involving [place] coronary artery of [place] heart without angina pectoris I25.10 [place] [id number] [place] [address] 15601- 5821 Jan, Low back pain M54.5 and Coronary artery disease involving [place] coronary artery of [place] heart without angina pectoris I25.10 [place] [id number] [place] [address] 27967- 8191 Dec, Acquired hypothyroidism E03.9 and Vertigo R42 [place] [id number] [place] [address] 14608- 3729 Dec, Low back pain M54.5 and Dermatitis L30.9 [place] [id number] [place] [address] 36964- 4158 Nov, Coronary artery disease involving [place] coronary artery of [place] heart without angina pectoris I25.10 [place] [id number] [place] [address] 98319- 1643 Nov, Acquired hypothyroidism E03.9 and Vertigo R42 [place] [id number] [place] [address] 93807- 5440 Nov, Encounter for well woman exam Z01.419 ; Screening for osteoporosis Z13.820 and Screening for colon cancer Z12.11 [facility] [address] [address] 2466 Oct, Coronary artery disease involving [place] coronary artery of [place] heart without angina pectoris I25.10 [facility] [id number] [place] [address] 59624- 1287 September, [facility] [id number] [place] [address] 70554- 4235 September, [facility] [id number] [place] [address] 24263- 8243 Aug, Type 2 diabetes mellitus without complication, without long- term current use of insulin E11.9 ; Essential hypertension I10 ; Acquired hypothyroidism E03.9 and Low back pain M54.5 [place] [id number] [place] [address] 26241- 3996 Aug, [facility] [id number] [place] [address] 79040- 9163 Aug, [facility] [id number] [place] [address] 66700- 1258 Jul, [facility] [id number] [place] [address] 39463- 1234 Jul, Coronary artery disease involving [place] coronary artery of [place] heart without angina pectoris I25.10 [place] [id number] [place] [address] 38537- 6051 Jun, Low back pain M54.5 and Essential hypertension I10 [facility] [id number] [place] [address] 93339- 4971 Jun, Head cold J00 [facility] [id number] [place] [address] 81317- 8098 May, [facility] [id number] [place] [address] 36360- 5098 Apr, Type 2 diabetes mellitus without complication, without long- term current use of insulin E11.9 [place] [address] [address] 2844 12 Apr, 2017 Type 2 diabetes mellitus without complication, without long- term current use of insulin E11.9 [place] [id number] [place] [address] 02313- 3302 05 Apr, 2017 Essential hypertension I10 [place] [id number] [place] [address] 84701- 6384 Mar, [place] [id number] [place] [address] 77004- 9170 Mar, [place] [id number] [place] [address] 93993- 4531 Mar, Osteoarthritis of spine with radiculopathy, cervical region M47.22 [place] [id number] [place] [address] 00762- 5950 Mar, [place] [id number] [place] [address] 50112- 9976 Feb, [place] [id number] [place] [address] 70693- 8859 Feb, Screening breast examination Z12.31 ; Bilateral carotid artery disease I77.9 ; Low back pain M54.5 ; Osteoarthritis of spine with radiculopathy, cervical region M47.22 ; Renal insufficiency N28.9 ; Vitamin D deficiency E55.9 ; Restless leg syndrome G25.81 ; Acquired hypothyroidism E03.9 ; Coronary artery disease involving [place] coronary artery of [place] heart without angina pectoris I25.10 ; Vertigo R42 ; Essential hypertension I10 ; Type 2 diabetes mellitus with diabetic chronic kidney disease E11.22 and Encounter for immunization Z23 [place] [id number] [place] [address] 27222- 5506 Jan, [place] [id number] [place] [address] 57214- 8868 Jan, Type 2 diabetes mellitus without complication, without long- term current use of insulin E11.9 ; Low back pain M54.5 ; Osteoarthritis of spine with radiculopathy, cervical region M47.22 ; Renal insufficiency N28.9 ; Vitamin D deficiency E55.9 ; Restless leg syndrome G25.81 ; Bilateral carotid artery disease I77.9 ; Acquired hypothyroidism E03.9 ; Coronary artery disease involving [place] coronary artery of [place] heart without angina pectoris I25.10 and Lipoma of back D17.[address] 54862- 9743 Jan, Type 2 diabetes mellitus without complication, without long- term current use of insulin E11.9 [place] [address] 0[address]45- 3320 Dec, Osteoarthritis of spine with radiculopathy, cervical region M47.22 [id number] [place] [address] 50499- 6966 Nov, [address] 08542- 5969 Nov, Low back pain M54.5 and Osteoarthritis of spine with radiculopathy, cervical region M47.22 [place] [address] 56461- 2966 Nov, Osteoarthritis of spine with radiculopathy, cervical [...] hypothyroidism E03.9 ; Coronary artery disease involving [place] coronary artery of [place] heart without angina pectoris I25.10 ; Hypercalcemia E83.52 and Left foot pain M79.672 [place] [id number] [place] [address] 23153- 0011 15 Oct, 2016 [address] [place] [address] 74016- 1389 Oct, Osteoarthritis of spine with radiculopathy, cervical region M47.22 [facility] [id number] [place] [address] 68365- 2747 Oct, Abnormal blood chemistry R79.9 [facility] [id number] [place] [address] 76940- 8222 September, Osteoarthritis of spine with radiculopathy, cervical region M47.22 ; Essential hypertension I10 ; Renal insufficiency N28.9 ; Type 2 diabetes mellitus without complication, without long-term current use of insulin E11.9 ; Vitamin D deficiency E55.9 ; Paresthesia of both hands R20.2 ; Low back pain M54.5 ; Restless leg syndrome G25.81 and Dizziness R42 [facility] [id number] [place] [address] 50010- 7386 September, [facility] [id number] [place] [address] 00825- 7551 September, [facility] [id number] [place] [address] 68303- 3682 September, [facility] [id number] [place] [address] 73493- 5883 September, [facility] [id number] [place] [address] 59056- 7346 Aug, [facility] [id number] [place] [address] 20844- 9292 Aug, [facility] [id number] [place] [address] 70695- 4279 Aug, [facility] [id number] [place] [address] 67202- 7935 Aug, [facility] [id number] [place] [address] 07504- 9777 Aug, Osteoarthritis of spine with radiculopathy, cervical region M47.22 [facility] [id number] [place] [address] 50160- 6100 Aug, Essential hypertension I10 ; Renal insufficiency N28.9 ; Type 2 diabetes mellitus without complication, without long-term current use of insulin E11.9 ; Vitamin D deficiency E55.9 ; Paresthesia of both hands R20.2 ; Low back pain M54.5 ; Restless leg syndrome G25.81 ; Osteoarthritis of spine with radiculopathy, cervical region M47.22 and Dizziness R42 [address] [place] [id number] [place] [address] 25335- 6571 Jul, [place] [id number] [place] [address] 88641- 8331 Jul, [address] [place] [address] 63691- 2629 Jul, Essential hypertension I10 ; Paresthesia of both hands R20.2 ; Upper respiratory tract infection, unspecified type J06.9 and Low back pain M54.5 [place] [id number] [place] [address] 08172- 3146 Jul, [place] [id number] [place] [address] 97538- 0035 Jul, [place] [id number] [place] [address] 59133- 4460 Jul, Renal insufficiency N28.9 ; Vitamin D deficiency E55.9 ; Type 2 diabetes mellitus without complication, without long-term current use of insulin E11.9 ; Restless leg syndrome G25.81 ; Type 2 diabetes mellitus with diabetic chronic kidney disease E11.22 and Chronic kidney disease, stage 1 N18.1 [address] [place] [id number] [place] [address] 22459- 7210 Jul, Renal insufficiency N28.9 [place] [id number] [place] [address] 48872- 2074 Jun, [place] [id number] [place] [address] 77327- 8147 Jun, Renal insufficiency N28.9 ; Vitamin D deficiency E55.9 ; Type 2 diabetes mellitus without complication, without long-term current use of insulin E11.9 ; Restless leg syndrome G25.81 ; Type 2 diabetes mellitus with diabetic chronic kidney disease E11.22 and Chronic kidney disease, stage 1 N18.1 [address] [place] [address] [address]- 2774 Jun, [facility] [id number] [place] [address] 30214- 9112 May, [facility] [id number] [place] [address] 72661- 7896 May, [place] [id number] [place] [address] 56746- 5709 May, [place] [id number] [place] [address] 62938- 5719 May, [place] [id number] [place] [address] 36375- 4139 May, [facility] [id number] [place] [address] 30508- 0857 Apr, Acquired hypothyroidism E03.9 ; Essential hypertension I10 ; Type 2 diabetes mellitus without complication, without long-term current use of insulin E11.9 and Mixed hyperlipidemia E78.2 [address] [place] [id number] [place] [address] 12662- 1663 Apr, Type 2 diabetes mellitus without complication, without long- term current use of insulin E11.9 ; Coronary artery disease involving [place] coronary artery of [place] heart without angina pectoris I25.10 ; Essential hypertension I10 and Acquired hypothyroidism E03.9 [address] [place] [id number] [place] [address] 26771- 8021 Apr, Cellulitis of left lower extremity L03.116 [address] [place] [address] 69124- 2625 Apr, Essential hypertension I10 ; Mixed hyperlipidemia E78.2 ; Type 2 diabetes mellitus without complication, without long-term current use of insulin E11.9 ; Acquired hypothyroidism E03.9 ; Cellulitis of left lower extremity L03.116 and Coronary artery disease involving [place] coronary artery of [place] heart without angina pectoris I25.10 [facility] [address] [address]- 1275 14 Apr, 2016 [facility] [address] [address] -4415 Dec, Dermatitis L30.9 [facility] [id number] [place] [address] 61642- 4880 Aug, [facility] [id number] [place] [address] 82224- 1424 Aug, [facility] [address] 1168 Jan, [facility] [id number] [place] [address] 25413- 4860 Jan, [facility] [address] [address]- 0664 Jun, [facility] [id number] [address]- 3341 May, [facility] [address] [address]- 3574 May, [facility] [address] [address]- 9115 May, [facility] [address] [address]- 9267 Apr, [facility] [id number] [place] [address] 08488- 1206 Feb, [facility] [address] [address]- 9116 Feb, [facility] [id number] [place] [address] [id number]- 1422 Nov, [facility] [address] [facility] [id number] [address]- 7361 Nov, [facility] [id number] [address]- 8613 Nov, [facility] [address] [facility] [id number] [address]- 9717 Nov, [facility] [id number] [address]- 0279 Nov, [facility] [address] [facility] [id number] [address]- 7849 Nov, [facility] [address] [facility] [id number] [address]- 8557 Nov, IMMUNIZATIONS No Known Immunizations SOCIAL HISTORY [...]
--- OUTSIDE RECORDS SUMMARY | 2018-04-12 11:58 | XMS REPORT | Continuity of Care Document ---
Author Author [facility] of [facility] of [facility] Address Unknown Phone Unavailable Allergies [...] NOS 04/09/2011 Ot 414.01 CORONARY ATHEROSCLEROSIS OF [place] CORON 04/09/2011 Ot 786.50 CHEST PAIN NOS [...] NOS 02/06/2012 Ot 414.01 CORONARY ATHEROSCLEROSIS OF [place] CORON 02/06/2012 Ot 729.5 PAIN IN LIMB [...] NOS 05/19/2012 Ot 414.01 CORONARY ATHEROSCLEROSIS OF [place] CORON 05/19/2012 Ot 786.05 SHORTNESS OF BREATH [...] LEWIS MD Ot 414.01 CORONARY ATHEROSCLEROSIS OF [place] CORON 03/09/2013 BOBBI LEWIS MD Ot 786.50 [...] DO Ot 401.9 HYPERTENSION NOS 09/10/2013 KIMBRIAN DANIELLA MALDONADO Ot 414.01 CORONARY ATHEROSCLEROSIS OF [place] CORON 09/10/2013 DANIELLA GONZALEZ DO Ot 427.89 [...] 780.4 DIZZINESS AND GIDDINESS 11/15/2013 ABEBA OBRIEN BANK PRESIDENT Ot 599.0 URIN TRACT INFECTION NOS 11/15/2013 ABEBA OBRIEN BANK PRESIDENT Ot 787.01 NAUSEA WITH VOMITING 11/15/2013 ABEBA OBRIEN BANK PRESIDENT Ot 787.91 DIARRHEA 12/04/2013 DANIELLA GONZALEZ DO Ot 244.9 HYPOTHYROIDISM NOS 12/04/2013 DANIELLA GONZALEZ DO Ot 250.00 DIAB GUILLERMO WO COMPL, TYPE II OR UNSPEC TY 12/04/2013 DANIELLA GONZALEZ DO Ot 276.50 VOLUME DEPLETION, UNSPECIFIED 12/04/2013 DANIELLA GONZALEZ DO Ot 305.1 TOBACCO USE DISORDER 12/04/2013 DANIELLA GONZALEZ DO Ot 401.9 HYPERTENSION NOS 12/04/2013 DANIELLA GONZALEZ DO Ot 414.01 CORONARY ATHEROSCLEROSIS OF [place] CORON 12/04/2013 DANIELLA GONZALEZ DO Ot 458.9 [...] CORON ATHEROSCLER NOS TYPE VESSEL, NATIV 01/08/2014 BING LAM MD Ot 427.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 NEC [...] JOSHUA ROJO, BOBBI J Ot 414.00 04/17/2014 JOSHUA ROJO, BOBBI Olivera Ot 780.4 04/17/2014 JOSHUA ROJO, BOBBI J Ot 786.50 04/17/2014 JOSHUA ROJO, BOBBI J Ot 250.00 04/17/2014 JOSHUA ROJO, BOBBI Olivera Ot 272.4 04/17/2014 JOSHUA ROJO, BOBBI J Ot 401.9 04/17/2014 JOSHUA ROJO, BASCOOPER J Ot 414.00 04/17/2014 JOSHUA ROJO, BOBBI Olivera Ot 786.50 04/17/2014 NAKITA ROJO, RENATO Conley Ot 433.10 04/17/2014 NAKITA ROJO, RENATO Conley Ot V72.84 04/17/2014 NAKITA ROOJ, RENATO Conley Ot V74.8 04/17/2014 DANIELLA GONZALEZ [...] Olivera Ot 250.00 05/01/2014 JOSHUA ROJO, BOBBI Olviera Ot 401.9 05/01/2014 JOSHUA ROJO, BOBBI J [...] NONSPECIF SKIN ERUPT NEC 08/15/2014 ABEBA OBRIEN BANK PRESIDENT Ot 053.9 HERPES ZOSTER NOS 08/15/2014 ABEBA OBRIEN BANK PRESIDENT Ot 692.9 DERMATITIS NOS 08/15/2014 ABEBA OBRIEN BANK PRESIDENT Ot 782.1 NONSPECIF SKIN ERUPT NEC 08/17/2014 PEDRO BORREGO DO Ot 782.1 08/27/2014 ABEBA OBRIEN BANK PRESIDENT Ot 789.09 ABDOMINAL PAIN, OTHER SPECIFIED SITE [...] BOBBI Olivera Ot 250.00 09/08/2014 JOSHUA ROJO, BBOBI Olivera Ot 401.9 09/08/2014 JOSHUA ROJO, BOBBI [...] ADV EFF MEDICINAL NOS 09/11/2014 ABEBA OBRIEN BANK PRESIDENT Ot 782.1 NONSPECIF SKIN ERUPT NEC 10/06/2014 [...] KATHRIN K Ot 435.9 10/06/2014 YEN PA, KATHRIN K Ot 780.2 10/06/2014 DANIELLA GONZALEZ DO [...] Ot Y99.8 OTHER EXTERNAL CAUSE STATUS 04/05/2015 PEDRO BORREGO DO Ot Z79.82 SENIOR IT SECURITY ANALYST (CURRENT) USE OF ASPIRIN 04/05/2015 Ot 789.09 [...] DO Lester Ot Y92.[address] [facility]PRIVATE 06/03/2015 KORIN STRATTON DO Ot [...] ROJO, BOBBI Olivera Ot 414.00 06/23/2015 JOSHUA ROJO, BOBBI Olivera Ot 780.4 06/23/2015 JOSHUA ROJO, [...] YEN PA, KATHRIN K Ot 272.4 06/23/2015 QUENTINNixleNATHALIA PA, KATHRIN K Ot 250.00 06/23/2015 YEN PA, KATHRIN K Ot 272.4 06/23/2015 QUENTINNixleNATHALIA PA, KATHRIN K Ot 278.00 06/23/2015 YEN [...] MD Ot I25.10 ATHSCL HEART DISEASE OF [place] CORONARY 10/07/2015 JOSHUA ROJO, BOBBI Olivera Ot [...] NOS 10/07/2015 Ot 414.01 CORONARY ATHEROSCLEROSIS OF [place] CORON 10/07/2015 Ot 719.41 JOINT PAIN- SHLDER [...] GONZALEZ DO Ot 414.01 CORONARY ATHEROSCLEROSIS OF [place] CORON 10/07/2015 BOBBI LEWIS MD Ot 244.9 [...] MD Ot I25.10 ATHSCL HEART DISEASE OF [place] CORONARY 10/07/2015 BOBBI LEWIS MD Ot R06.02 SHORTNESS OF BREATH 10/07/2015 BOBBI LEWIS MD Ot R07.89 OTHER CHEST PAIN 10/09/2015 LORI ROJO, TANJA Bradford Ot K52.9 NONINFECTIVE GASTROENTERITIS AND COLITIS 10/21/2015 BOBBI LEWIS MD Ot E78.2 MIXED HYPERLIPIDEMIA 10/21/2015 BOBBI LEWIS MD Ot I10 ESSENTIAL (PRIMARY) HYPERTENSION 10/21/2015 BOBBI LEWIS MD Ot I25.10 ATHSCL HEART DISEASE OF [place] CORONARY 10/21/2015 BOBBI LEWIS MD Ot R06.02 [...] NOS 11/30/2015 Ot 414.01 CORONARY ATHEROSCLEROSIS OF [place] CORON 11/30/2015 Ot 719.41 JOINT PAIN- SHLDER [...] GONZALEZ DO Ot 414.01 CORONARY ATHEROSCLEROSIS OF [place] CORON 11/30/2015 BOBBI LEWIS MD Ot 244.9 [...] R53.83 OTHER FATIGUE 11/30/2015 GELLENDER DO, DANIELLA uSzette Ot E03.9 HYPOTHYROIDISM, UNSPECIFIED 11/30/2015 GELLENDER DO, [...] MD Ot I25.10 ATHSCL HEART DISEASE OF [place] CORONARY 11/30/2015 BOBBI LEWIS MD Ot R06.02 [...] MCGUIRE Ot I25.10 ATHSCL HEART DISEASE OF [place] CORONARY 01/20/2016 LISA MALDONADO, DANIELLA Bradford Ot Z12.31 ENCNTR SCREEN MAMMOGRAM FOR MALIGNANT NE 01/20/2016 LISA MALDONADO DANIELLA Bradford Ot Z12.31 ENCNTR SCREEN MAMMOGRAM FOR MALIGNANT NE 01/25/2016 KATHRIN MCGUIRE Ot E78.2 MIXED HYPERLIPIDEMIA 01/25/2016 KATHRIN MCGUIRE Ot I10 ESSENTIAL (PRIMARY) HYPERTENSION 01/25/2016 KATHRIN MCGUIRE Ot I25.10 ATHSCL HEART DISEASE OF [place] CORONARY 01/25/2016 YEN SHAH, KATHRIN Mensah Ot [...] 02/04/2016 ELMO DO, PEDRO K Ot Z79.82 SENIOR IT SECURITY ANALYST (CURRENT) USE OF ASPIRIN 02/04/2016 ELMO DO, PEDRO K Ot Z79.899 OTHER CORRECTION (CURRENT) DRUG THERAPY 02/04/2016 ELMO DO, PEDRO [...] 02/06/2016 ELMO DO PEDRO K Ot Z79.82 SENIOR IT SECURITY ANALYST (CURRENT) USE OF ASPIRIN 02/06/2016 ELMO DO PEDRO K Ot Z79.899 OTHER SENIOR IT SECURITY ANALYST (CURRENT) DRUG THERAPY 02/06/2016 ELMO DO PEDRO K Ot Z95.5 PRESENCE OF CORONARY ANGIOPLASTY IMPLANT 02/09/2016 KATHRIN MCGUIRE Ot E78.2 MIXED HYPERLIPIDEMIA 02/09/2016 KATHRIN MCGUIRE Ot I10 ESSENTIAL (PRIMARY) HYPERTENSION 02/09/2016 KATHRIN MCGUIRE Ot I25.10 ATHSCL HEART DISEASE OF [place] CORONARY 02/09/2016 KATHRIN MCGUIRE Ot R07.89 OTHER CHEST PAIN 02/10/2016 Ot V76.12 OTH SCREEN MAMMO-MALIGN NEOPLASM OF [place] 02/10/2016 Ot 414.00 CORON ATHEROSCLER NOS TYPE VESSEL, NATIV 02/10/2016 Ot 786.50 CHEST PAIN NOS 02/10/2016 Ot 414.01 CORONARY ATHEROSCLEROSIS OF [place] CORON 02/10/2016 Ot 719.41 JOINT PAIN- SHLDER [...] GONZALEZ DO Ot 414.01 CORONARY ATHEROSCLEROSIS OF [place] CORON 02/10/2016 BOBBI LEWIS MD Ot 244.9 [...] MD Ot I25.10 ATHSCL HEART DISEASE OF [place] CORONARY 02/10/2016 JOSHUA ROJO, BOBBI Olivera Ot R06.02 SHORTNESS OF BREATH 02/10/2016 BOBBI LEWIS MD Ot R07.89 OTHER CHEST PAIN 02/10/2016 LISA MALDONADO, DANIELLA Bradford Ot E03.9 HYPOTHYROIDISM, UNSPECIFIED 02/10/2016 LISA MALDONADO, DANIELLA Bradford Ot E78.5 HYPERLIPIDEMIA, UNSPECIFIED 02/10/2016 LISA MALDONADO, DANIELLA Suzette Ot E03.9 HYPOTHYROIDISM, UNSPECIFIED 02/10/2016 KATHRIN MCGUIRE Ot E78.2 MIXED HYPERLIPIDEMIA 02/10/2016 KATHRIN MCGUIRE Ot I25.10 ATHSCL HEART DISEASE OF [place] CORONARY 02/10/2016 KATHRIN MCGUIRE Ot E78.2 MIXED HYPERLIPIDEMIA 02/10/2016 KATHRIN MCGUIRE Ot I10 ESSENTIAL (PRIMARY) HYPERTENSION 02/10/2016 KATHRIN MCGUIRE Ot I25.10 ATHSCL HEART DISEASE OF [place] CORONARY 02/10/2016 KATHRIN MCGUIRE Ot R07.89 OTHER CHEST PAIN 02/10/2016 KATHRIN MCGUIRE Ot E78.2 MIXED HYPERLIPIDEMIA 02/10/2016 KATHRIN MCGUIRE Ot I10 ESSENTIAL (PRIMARY) HYPERTENSION 02/10/2016 KATHRIN MCGUIRE Ot I25.10 ATHSCL HEART DISEASE OF [place] CORONARY 02/10/2016 KATHRIN MCGUIRE Ot R07.89 OTHER CHEST PAIN 02/10/2016 LISA MALDONADO, DANIELLA Suzette Ot Z12.31 ENCNTR SCREEN MAMMOGRAM FOR MALIGNANT NE 02/13/2016 KATHRIN MCGUIRE Ot E78.2 MIXED HYPERLIPIDEMIA 02/13/2016 KATHRIN MCGUIRE Ot I10 ESSENTIAL (PRIMARY) HYPERTENSION 02/13/2016 KATHRIN MCGUIRE Ot I25.10 ATHSCL HEART DISEASE OF [place] CORONARY 02/13/2016 KATHRIN MCGUIRE Ot R07.89 OTHER CHEST PAIN 02/22/2016 KATHRIN MCGUIRE Ot E78.2 MIXED HYPERLIPIDEMIA 02/22/2016 KATHRIN MCGUIRE K Ot I10 ESSENTIAL (PRIMARY) HYPERTENSION 02/22/2016 KATHRIN MCGUIRE Ot I25.10 ATHSCL HEART DISEASE OF [place] CORONARY 02/22/2016 KATHRIN MCGUIRE Ot R07.89 OTHER CHEST PAIN 03/07/2016 BING LAM MD Ot E11.9 TYPE 2 DIABETES MELLITUS WITHOUT COMPLIC 03/07/2016 BING LAM MD Ot L30.9 DERMATITIS, UNSPECIFIED 03/07/2016 BING LAM MD Ot R19.7 DIARRHEA, UNSPECIFIED 03/07/2016 BING LAM MD Ot R42 DIZZINESS AND GIDDINESS 03/07/2016 BING LAM MD Ot Z79.82 CORRECTION (CURRENT) USE OF ASPIRIN 03/07/2016 BING LAM MD Ot Z79.84 SENIOR IT SECURITY ANALYST (CURRENT) USE OF ORAL HYPOGLYC 03/07/2016 BING LAM MD T Ot Z79.899 OTHER CORRECTION (CURRENT) DRUG THERAPY 04/05/2016 DOLORES CRUZ Ot B35.4 TINEA CORPORIS 04/05/2016 DOLORES CRUZ Ot E11.9 TYPE 2 DIABETES MELLITUS WITHOUT COMPLIC 04/05/2016 DOLORES CRUZ Ot I10 ESSENTIAL (PRIMARY) HYPERTENSION 04/05/2016 DOLORES CRUZ Ot L30.9 DERMATITIS, UNSPECIFIED 04/05/2016 DOLORES CRUZ Ot R21 RASH AND OTHER NONSPECIFIC SKIN ERUPTION 04/05/2016 DOLORES CRUZ Ot Z79.82 CORRECTION (CURRENT) USE OF ASPIRIN 04/05/2016 DOLORES CRUZ Ot Z79.899 OTHER CORRECTION (CURRENT) DRUG THERAPY 04/06/2016 DOLORES CRUZ Ot B35.4 TINEA CORPORIS 04/06/2016 DOLORES CRUZ Ot E11.9 TYPE 2 DIABETES MELLITUS WITHOUT COMPLIC 04/06/2016 DOLORES CRUZ Ot I10 ESSENTIAL (PRIMARY) HYPERTENSION 04/06/2016 DOLORES CRUZ Ot L30.9 DERMATITIS, UNSPECIFIED 04/06/2016 DOLORES CRUZ Ot R21 RASH AND OTHER NONSPECIFIC SKIN ERUPTION 04/06/2016 DOLORES CRUZ Ot Z79.82 SENIOR IT SECURITY ANALYST (CURRENT) USE OF ASPIRIN 04/06/2016 DOLORES CRUZ Ot Z79.899 OTHER SENIOR IT SECURITY ANALYST (CURRENT) DRUG THERAPY 05/02/2016 DOLORES CRUZ Ot E11.9 TYPE 2 DIABETES MELLITUS WITHOUT COMPLIC 05/02/2016 DOLORES CRUZ Ot I10 ESSENTIAL (PRIMARY) HYPERTENSION 05/02/2016 DOLORES CRUZ Ot L50.9 URTICARIA, UNSPECIFIED 05/02/2016 DOLORES CRUZ Ot R21 RASH AND OTHER NONSPECIFIC SKIN ERUPTION 05/02/2016 DOLORES CRUZ Ot R42 DIZZINESS AND GIDDINESS 05/02/2016 DOLORES CRUZ Ot T37.0X5A ADVERSE EFFECT OF SULFONAMIDES, INITIAL 05/02/2016 DOLORES CRUZ Ot Z79.82 CORRECTION (CURRENT) USE OF ASPIRIN 05/02/2016 DOLORES CRUZ Ot Z79.84 CORRECTION (CURRENT) USE OF ORAL HYPOGLYC 05/02/2016 DOLORES CRUZ Ot Z79.899 OTHER CORRECTION (CURRENT) DRUG THERAPY 05/02/2016 DOLORES CRUZ Ot [...] MD Ot I25.10 ATHSCL HEART DISEASE OF [place] CORONARY 06/27/2016 BOBBI LEWIS MD Ot 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 DEPOLARIZATION 06/27/2016 BOBBI LEWIS MD Ot R07.89 OTHER CHEST PAIN 06/27/2016 BOBBI LEWIS MD, Ot Z68.32 BODY MASS INDEX (BMI) 32.0-32.9, ADULT 06/27/2016 BOBBI LEWIS MD, Ot Z79.899 OTHER CORRECTION (CURRENT) DRUG THERAPY 06/27/2016 BOBBI LEWIS MD, [...] APRN Ot I25.10 ATHSCL HEART DISEASE OF [place] CORONARY 07/21/2016 ABEBA OBRIEN APRN Ot M47.22 [...] APRN Ot I25.10 ATHSCL HEART DISEASE OF [place] CORONARY 07/23/2016 ABEBA OBRIEN APRN Ot M47.22 [...] Ot I10 ESSENTIAL (PRIMARY) HYPERTENSION 08/01/2016 ABEBA OBRIEN APRN Ot I25.10 ATHSCL HEART DISEASE OF [place] CORONARY 08/01/2016 ABEBA OBRIEN APRN Ot M47.22 [...] A Ot I25.10 ATHSCL HEART DISEASE OF [place] CORONARY 10/14/2016 TANJA SANDOVAL MD A Ot R20.0 ANESTHESIA OF SKIN 10/14/2016 TANJA SANDOVAL MD Ot Z79.82 SENIOR IT SECURITY ANALYST (CURRENT) USE OF ASPIRIN 10/14/2016 TANJA SANDOVAL [...] A Ot I25.10 ATHSCL HEART DISEASE OF [place] CORONARY 10/17/2016 TANJA SANDOVAL MD A Ot R20.0 ANESTHESIA OF SKIN 10/17/2016 TANJA SANDOVAL MD A Ot Z79.82 SENIOR IT SECURITY ANALYST (CURRENT) USE OF ASPIRIN 10/17/2016 TANJA SANDOVAL MD Ot Z86.73 PRSNL HX OF TIA (TIA), AND CEREB INFRC W 10/17/2016 TANJA SANDOVAL MD Ot Z87.891 PERSONAL HISTORY OF NICOTINE DEPENDENCE 10/17/2016 TANJA SANDOVAL MD Ot Z95.5 PRESENCE OF CORONARY ANGIOPLASTY IMPLANT 10/31/2016 MADLSAKSHI COOKER PROCESS CHEESE Ot I65.22 OCCLUSION AND STENOSIS OF LEFT CAROTID A 11/19/2016 MADLSAKSHI L COOKER PROCESS CHEESE Ot I65.22 OCCLUSION AND STENOSIS OF LEFT CAROTID A 03/12/2017 MADL, SAKSHI Hernandez COOKER PROCESS CHEESE Ot Z12.31 ENCNTR SCREEN MAMMOGRAM FOR MALIGNANT NE 03/27/2017 MADLSAKSHI COOKER PROCESS CHEESE Ot Z12.31 ENCNTR SCREEN MAMMOGRAM FOR MALIGNANT [...] GONZALEZ DO Ot 414.01 CORONARY ATHEROSCLEROSIS OF [place] CORON 04/10/2017 BOBBI LEWIS MD Ot 244.9 [...] MD Ot I25.10 ATHSCL HEART DISEASE OF [place] CORONARY 04/10/2017 BOBBI LEWIS MD Ot R06.02 SHORTNESS OF BREATH 04/10/2017 BOBBI LEWIS MD Ot R07.89 OTHER CHEST PAIN 04/10/2017 DANIELLA GONZALEZ DO Ot E03.9 HYPOTHYROIDISM, UNSPECIFIED 04/10/2017 LISA MALDONADO DANIELLA Bradford Ot E78.5 HYPERLIPIDEMIA, UNSPECIFIED 04/10/2017 LISA MALDONADO DANIELLA Bradford Ot E03.9 HYPOTHYROIDISM, UNSPECIFIED 04/10/2017 KATHRIN MCGUIRE Ot E78.2 MIXED HYPERLIPIDEMIA 04/10/2017 KATHRIN MCGUIER Ot I25.10 ATHSCL HEART DISEASE OF [place] CORONARY 04/10/2017 KATHRIN MCGUIRE Ot E78.2 MIXED HYPERLIPIDEMIA 04/10/2017 KATHRIN MCGUIRE Ot I10 ESSENTIAL (PRIMARY) HYPERTENSION 04/10/2017 KATHRIN MCGUIRE Ot I25.10 ATHSCL HEART DISEASE OF [place] CORONARY 04/10/2017 KATHRIN MCGUIRE Ot R07.89 OTHER CHEST PAIN 04/10/2017 KATHRIN MCGUIRE Ot E78.2 MIXED HYPERLIPIDEMIA 04/10/2017 KATHRIN MCGUIRE Ot I10 ESSENTIAL (PRIMARY) HYPERTENSION 04/10/2017 KATHRIN MCGUIRE Ot I25.10 ATHSCL HEART DISEASE OF [place] CORONARY 04/10/2017 KATHRIN MCGUIRE Ot R07.89 OTHER CHEST PAIN 04/10/2017 DANIELLA GONZALEZ DO Ot Z12.31 ENCNTR SCREEN MAMMOGRAM FOR MALIGNANT NE 04/10/2017 KATHRIN MCGUIRE Ot E78.2 MIXED HYPERLIPIDEMIA 04/10/2017 YAW SAKSHI Hernandez COOKER PROCESS CHEESE Ot 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 WITH RADICULOPATHY, CE 04/10/2017 MADMary SAKSHI Hernandez COOKER PROCESS CHEESE Ot I65.22 OCCLUSION AND STENOSIS OF LEFT CAROTID A 04/10/2017 DEEPIKA TIDWELLSuzette Hernandez COOKER PROCESS CHEESE Ot Z12.31 ENCNTR SCREEN MAMMOGRAM FOR MALIGNANT NE 05/03/2017 SAKSHI TIDWELL COOKER PROCESS CHEESE Ot I77.9 DISORDER OF ARTERIES AND ARTERIOLES, UNS 05/03/2017 DEEPIKA TIDWELLSuzette Hernandez COOKER PROCESS CHEESE Ot Z98.890 OTHER SPECIFIED POSTPROCEDURAL STATES 07/26/2017 BING LAM MD Ot E03.9 HYPOTHYROIDISM, UNSPECIFIED 07/26/2017 BING LAM MD Ot E11.9 TYPE 2 DIABETES MELLITUS WITHOUT COMPLIC 07/26/2017 BING LAM MD Ot E78.00 PURE HYPERCHOLESTEROLEMIA, UNSPECIFIED 07/26/2017 BING LAM MD Ot I10 ESSENTIAL (PRIMARY) HYPERTENSION 07/26/2017 BING LAM MD Ot I25.10 ATHSCL HEART DISEASE OF [place] CORONARY 07/26/2017 BING LAM MD Ot L30.9 DERMATITIS, UNSPECIFIED 07/26/2017 BING LAM MD Ot R20.2 PARESTHESIA OF SKIN 07/26/2017 BING LAM MD Ot R21 RASH AND OTHER NONSPECIFIC SKIN ERUPTION 07/26/2017 BING LAM MD, Ot Z79.52 SENIOR IT SECURITY ANALYST (CURRENT) USE OF SYSTEMIC STER 07/26/2017 BING LAM MD Ot Z79.82 SENIOR IT SECURITY ANALYST (CURRENT) USE OF ASPIRIN 07/26/2017 BING LAM [...] MD Ot I25.10 ATHSCL HEART DISEASE OF [place] CORONARY 07/29/2017 BING LAM MD Ot L30.9 DERMATITIS, UNSPECIFIED 07/29/2017 BING LAM MD, Ot R20.2 PARESTHESIA OF SKIN 07/29/2017 BING LAM MD Ot R21 RASH AND OTHER NONSPECIFIC SKIN ERUPTION 07/29/2017 BING LAM MD Ot Z79.52 CORRECTION (CURRENT) USE OF SYSTEMIC STER 07/29/2017 BING LAM MD Ot Z79.82 SENIOR IT SECURITY ANALYST (CURRENT) USE OF ASPIRIN 07/29/2017 BING LAM [...] GONZALEZ DO Ot 414.01 CORONARY ATHEROSCLEROSIS OF [place] CORON 11/26/2017 BOBBI LEWIS MD Ot 244.9 [...] Bradford Ot R05 COUGH 11/26/2017 GELLENDER DO, DANEILLA Bradford Ot R06.02 SHORTNESS OF BREATH 11/26/2017 GELLENDER DO, DANIELLA Bradford Ot R53.83 OTHER FATIGUE 11/26/2017 BOBBI LEWIS MD Ot E78.2 MIXED HYPERLIPIDEMIA 11/26/2017 BOBBI LEWIS MD Ot I10 ESSENTIAL (PRIMARY) HYPERTENSION 11/26/2017 BOBBI LEWIS MD Ot I25.10 ATHSCL HEART DISEASE OF [place] CORONARY 11/26/2017 BOBBI ELWIS MD Ot R06.02 SHORTNESS OF BREATH 11/26/2017 BOBBI LEWIS MD Ot R07.89 OTHER CHEST PAIN 11/26/2017 GELLENDER DO, DANIELLA Bradford Ot E03.9 HYPOTHYROIDISM, UNSPECIFIED 11/26/2017 GELLENDER DO, DANIELLA Bradford Ot E78.5 HYPERLIPIDEMIA, UNSPECIFIED 11/26/2017 GELLENDER DO, DANIELLA Bradford Ot E03.9 HYPOTHYROIDISM, UNSPECIFIED 11/26/2017 KATHRIN MCGUIRE Ot E78.2 MIXED HYPERLIPIDEMIA 11/26/2017 KATHRIN MCGUIRE Ot I25.10 ATHSCL HEART DISEASE OF [place] CORONARY 11/26/2017 YEN SHAH KATHRIN K Ot E78.2 MIXED HYPERLIPIDEMIA 11/26/2017 YEN SHAH KATHRIN K Ot I10 ESSENTIAL (PRIMARY) HYPERTENSION 11/26/2017 YEN SHAH KATHRIN Makenna Ot I25.10 ATHSCL HEART DISEASE OF [place] CORONARY 11/26/2017 YEN SHAH KATHRIN K Ot R07.89 OTHER CHEST PAIN 11/26/2017 YEN SHAH KATHRIN K Ot E78.2 MIXED HYPERLIPIDEMIA 11/26/2017 YEN SHAH KATHRIN K Ot I10 ESSENTIAL (PRIMARY) HYPERTENSION 11/26/2017 YEN SHAH KATHRIN K Ot I25.10 ATHSCL HEART DISEASE OF [place] CORONARY 11/26/2017 YEN SHAH KATHRIN K Ot R07.89 OTHER CHEST PAIN 11/26/2017 DANIELLA GONZALEZ DO Ot Z12.31 ENCNTR SCREEN MAMMOGRAM FOR MALIGNANT NE 11/26/2017 YEN SHAH KATHRIN K Ot E78.2 MIXED HYPERLIPIDEMIA 11/26/2017 MADL, SAKSHI L COOKER PROCESS CHEESE Ot 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 WITH RADICULOPATHY, CE 11/26/2017 MADL, SAKSHI L COOKER PROCESS CHEESE Ot I65.22 OCCLUSION AND STENOSIS OF LEFT CAROTID A 11/26/2017 MADL, SAKSHI L COOKER PROCESS CHEESE Ot Z12.31 ENCNTR SCREEN MAMMOGRAM FOR MALIGNANT NE 11/26/2017 MADSERGIO HernandezSAKSHI L COOKER PROCESS CHEESE Ot I77.9 DISORDER OF ARTERIES AND ARTERIOLES, UNS 11/26/2017 MADL, SAKSHI L COOKER PROCESS CHEESE Ot Z98.890 OTHER SPECIFIED POSTPROCEDURAL STATES 11/26/2017 BOBBI LEWIS MD Ot E78.2 MIXED HYPERLIPIDEMIA 11/26/2017 BOBBI LEWIS MD Ot I10 ESSENTIAL (PRIMARY) HYPERTENSION 11/26/2017 BOBBI LEWIS MD Ot I25.10 ATHSCL HEART DISEASE OF [place] CORONARY 11/26/2017 BOBBI LEWIS MD Ot R07.89 [...] COMPL, TYPE II OR UNSPEC TY 11/28/2017 DANIELLA GONZALEZ DO Ot 414.01 CORONARY ATHEROSCLEROSIS OF [place] CORON 11/28/2017 BOBBI LEWIS MD Ot 244.9 [...] Ot 427.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 NEC 11/28/2017 KATHRIN MCGIURE Ot 250.00 DIAB GUILLERMO WO COMPL, TYPE [...] MD Ot I25.10 ATHSCL HEART DISEASE OF [place] CORONARY 11/28/2017 BOBBI LEWIS MD Ot R06.02 SHORTNESS OF BREATH 11/28/2017 BOBBI LEWIS MD Ot R07.89 OTHER CHEST PAIN 11/28/2017 GELLENDER DO, DANIELLA Bradford Ot E03.9 HYPOTHYROIDISM, UNSPECIFIED 11/28/2017 GELLENDER DO, DANIELLA Bradford Ot E78.5 HYPERLIPIDEMIA, UNSPECIFIED 11/28/2017 GELLENDER DO, DANIELLA Bradford Ot E03.9 HYPOTHYROIDISM, UNSPECIFIED 11/28/2017 KATHRIN MCGUIRE Ot E78.2 MIXED HYPERLIPIDEMIA 11/28/2017 KATHRIN MCGUIRE Ot I25.10 ATHSCL HEART DISEASE OF [place] CORONARY 11/28/2017 KATHRIN MCGUIRE Ot E78.2 MIXED HYPERLIPIDEMIA 11/28/2017 KATHRIN MCGUIRE Ot I10 ESSENTIAL (PRIMARY) HYPERTENSION 11/28/2017 KATHRIN MCGUIRE Ot I25.10 ATHSCL HEART DISEASE OF [place] CORONARY 11/28/2017 KATHRIN MCGUIRE Ot R07.89 OTHER CHEST PAIN 11/28/2017 KATHRIN MCGUIRE Ot E78.2 MIXED HYPERLIPIDEMIA 11/28/2017 KATHRIN MCGUIRE Ot I10 ESSENTIAL (PRIMARY) HYPERTENSION 11/28/2017 KATHRIN MCGUIRE Ot I25.10 ATHSCL HEART DISEASE OF [place] CORONARY 11/28/2017 KATHRIN MCGUIRE Ot R07.89 OTHER CHEST PAIN 11/28/2017 DANIELLA GONZALEZ DO Ot Z12.31 ENCNTR SCREEN MAMMOGRAM FOR MALIGNANT NE 11/28/2017 KATHRIN MCGUIRE Ot E78.2 MIXED HYPERLIPIDEMIA 11/28/2017 MADL, SAKSHI L COOKER PROCESS CHEESE Ot 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 WITH RADICULOPATHY, CE 11/28/2017 MADL, SAKSHI L COOKER PROCESS CHEESE Ot I65.22 OCCLUSION AND STENOSIS OF LEFT CAROTID A 11/28/2017 MADL, SAKSHI L COOKER PROCESS CHEESE Ot Z12.31 ENCNTR SCREEN MAMMOGRAM FOR MALIGNANT NE 11/28/2017 MADL, SAKSHI L COOKER PROCESS CHEESE Ot I77.9 DISORDER OF ARTERIES AND ARTERIOLES, UNS 11/28/2017 MADL, SAKSHI L COOKER PROCESS CHEESE Ot Z98.890 OTHER SPECIFIED POSTPROCEDURAL STATES 11/28/2017 BOBBI LEWIS MD Ot E78.2 MIXED HYPERLIPIDEMIA 11/28/2017 BOBBI LEWIS MD Ot I10 ESSENTIAL (PRIMARY) HYPERTENSION 11/28/2017 BOBBI LEWIS MD Ot I25.10 ATHSCL HEART DISEASE OF [place] CORONARY 11/28/2017 BOBBI LEWIS MD Ot R07.89 OTHER [...] GONZALEZ DO Ot 414.01 CORONARY ATHEROSCLEROSIS OF [place] CORON 03/05/2018 BOBBI LEWIS MD Ot 244.9 [...] 272.4 HYPERLIPIDEMIA NEC/NOS 03/05/2018 KATHRIN MCGUIRE Ot 414.9 CHR ISCHEMIC HRT [...] II OR UNSPEC TY 03/05/2018 GELLENDER DO, DANIELLA Bradford Ot 250.00 [...] Olivera Ot I25.10 ATHSCL HEART DISEASE OF [place] CORONARY 03/05/2018 JOSHUA ROJO, BOBBI Olivera Ot R06.02 SHORTNESS OF BREATH 03/05/2018 BOBBI LEWIS MD Ot R07.89 OTHER CHEST PAIN 03/05/2018 PJLENDER DANIELLA MALDONADO Ot E03.9 HYPOTHYROIDISM, UNSPECIFIED 03/05/2018 GELLENDER DODANIELLA Ot E78.5 HYPERLIPIDEMIA, UNSPECIFIED 03/05/2018 GELLENDER DODANIELLA Ot E03.9 HYPOTHYROIDISM, UNSPECIFIED 03/05/2018 KATHRIN MCGUIRE Ot E78.2 MIXED HYPERLIPIDEMIA 03/05/2018 KATHRIN MCGUIRE Ot I25.10 ATHSCL HEART DISEASE OF [place] CORONARY 03/05/2018 YEN SHAH KATHRIN Makenna Ot E78.2 MIXED HYPERLIPIDEMIA 03/05/2018 YEN SHAH KATHRIN Makenna Ot I10 ESSENTIAL (PRIMARY) HYPERTENSION 03/05/2018 YEN SHAH KATHRIN K Ot I25.10 ATHSCL HEART DISEASE OF [place] CORONARY 03/05/2018 SAAVEDRALISE SHAH KATHRIN K Ot R07.89 OTHER CHEST PAIN 03/05/2018 SAAVEDRALISE SHAH KATHRIN Mensah Ot E78.2 MIXED HYPERLIPIDEMIA 03/05/2018 SAAVEDRALISE SHAH KATHRIN Makenna Ot I10 ESSENTIAL (PRIMARY) HYPERTENSION 03/05/2018 SAAVEDRALISE SHAH KATHRIN K Ot I25.10 ATHSCL HEART DISEASE OF [place] CORONARY 03/05/2018 YEN SHAH KATHRIN Makenna Ot R07.89 OTHER CHEST PAIN 03/05/2018 DANIELLA GONZALEZ DO Ot Z12.31 ENCNTR SCREEN MAMMOGRAM FOR MALIGNANT NE 03/05/2018 YEN SHAH KATHRIN K Ot E78.2 MIXED HYPERLIPIDEMIA 03/05/2018 MADL, SAKSHI L COOKER PROCESS CHEESE Ot 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 WITH RADICULOPATHY, CE 03/05/2018 MADL, SAKSHI L COOKER PROCESS CHEESE Ot I65.22 OCCLUSION AND STENOSIS OF LEFT CAROTID A 03/05/2018 MADL, SAKSHI L COOKER PROCESS CHEESE Ot Z12.31 ENCNTR SCREEN MAMMOGRAM FOR MALIGNANT NE 03/05/2018 MADL, SAKSHI L COOKER PROCESS CHEESE Ot I77.9 DISORDER OF ARTERIES AND ARTERIOLES, UNS 03/05/2018 MADL, SAKSHI L COOKER PROCESS CHEESE Ot Z98.890 OTHER SPECIFIED POSTPROCEDURAL STATES 03/05/2018 BOBBI LEWIS MD Ot E78.2 MIXED HYPERLIPIDEMIA 03/05/2018 BOBBI LEWIS MD Ot I10 ESSENTIAL (PRIMARY) HYPERTENSION 03/05/2018 BOBBI LEWIS MD Ot I25.10 ATHSCL HEART DISEASE OF [place] CORONARY 03/05/2018 BOBBI LEWIS MD Ot R07.89 OTHER CHEST PAIN 03/05/2018 BOBBI LEWIS MD Ot R60.0 LOCALIZED EDEMA 03/05/2018 JASIEL KENDRICK BANK PRESIDENT Ot Z13.820 ENCOUNTER FOR SCREENING FOR OSTEOPOROSIS 03/18/2018 JASIEL KENDRICK BANK PRESIDENT Ot Z12.31 ENCNTR SCREEN MAMMOGRAM FOR MALIGNANT NE 03/23/2018 JASIEL KENDRICK BANK PRESIDENT Ot Z12.31 ENCNTR SCREEN MAMMOGRAM FOR MALIGNANT NE Procedures Code [place] [address] BIOPSY SKIN LESION 06/05/2012 00.40 PROCEDURE ON [...] indirect bilirubin measurement (mass/volume) 0.3 mg/ dL [facility] Lipid 1996 panel - 06/16/16 12:15 Serum [...] resistant Staphylococcus aureus (MRSA) screening culture NEG [facility] Comp. Metabolic Panel (14) - 07/17/16 00:00 [...] NRG STATEMENT OF ADEQUACY: NRG INTERPRETATION/RESULT: NRG MECHANIC INSULATOR: NRG HPV mRNA E6/E7, SUREPATH VIAL Not Detected NOT DETECTED COMMENT NRG CULTURE, GENITAL - 11/19/17 10:43 CULTURE, GENITAL SEE NOTE NRG Encounters ACCT No. Visit Date/Time Discharge Status Pt. Type Provider Facility Loc./Unit Complaint [id number] 06/05/2012 10:54:00 06/05/2012 23:59:59 CLS Outpatient SALONI QUINN DO [id number] 05/28/2012 09:59:00 05/28/2012 23:59:59 CLS Outpatient SALONI QUINN DO [id number] 02/07/2015 13:17:30 ACT Document Registration [id number] 03/07/2017 08:07:00 Document Registration [id number] 07/18/2016 08:46:00 Document Registration [id number] 03/17/2018 14:31:00 03/17/2018 23:59:59 CLS Outpatient JASIEL KENDRICK BANK PRESIDENT [facility] RAD SCREENING [id number] 11/28/2017 09:10:00 11/28/2017 23:59:59 CLS Outpatient JASIEL KENDRICK BANK PRESIDENT [facility] RAD SCREENING FOR OSTEOPOROSIS [id number] 07/25/2017 23:36:00 07/26/2017 00:06:00 DIS Emergency GENARO ROJO, BING Cabrera [facility] ER LEFT LEG RASH,RT LEG THROBBING [id number] 04/18/2017 06:44:00 04/18/2017 23:59:59 CLS Outpatient MADL, SAKSHI L COOKER PROCESS CHEESE [facility] RAD I77.9 BILATERAL CAROTID ARTERY DISEASE [id number] 04/18/2017 06:44:00 04/18/2017 23:59:59 CLS Outpatient JOSHUA ROJO, BOBBI Olivera [facility] LAB I25.10,R07.89,E78.2,I10, R60.0 [id number] 03/11/2017 13:55:00 03/11/2017 23:59:59 CLS Outpatient MADL, SAKSHI L COOKER PROCESS CHEESE [facility] RAD Z12.31 SCREENING BREAST EXAM [id number] 10/30/2016 10:06:00 10/30/2016 23:59:59 CLS Outpatient MADL, SAKSHI L COOKER PROCESS CHEESE [facility] RAD DIZZINESS R42 [id number] 10/14/2016 14:40:00 10/14/2016 16:11:00 DIS Emergency TANJA SANDOVAL MD [facility] ER BILAT HAND NUMBNESS/LEG WEAKNESS [id number] 08/28/2016 15:53:00 08/28/2016 23:59:59 CLS Outpatient MADL, SAKSHI L COOKER PROCESS CHEESE [facility] RAD M47.22 [id number] 07/21/2016 18:14:00 07/21/2016 20:46:00 DIS Emergency ABEBA OBRIEN BANK PRESIDENT [facility] ER BACK AND LEG PAIN [id number] 07/21/2016 15:27:00 07/21/2016 17:06:00 DIS Emergency AZALIA ROJO, MEKHI Batista [facility] ER HAND NUMBNESS, LOWER BACK PAIN [id number] 06/27/2016 08:10:00 06/27/2016 17:43:00 DIS Outpatient JOSHUA ROJO, BOBBI Olivera [facility] CATH CP,DYSPNEA,CAD [id number] 06/16/2016 12:06:00 06/16/2016 23:59:59 CLS Outpatient KATHRIN MCGUIRE [facility] LAB HYPERLIPIDEMIA, MIXED [id number] 05/02/2016 14:34:00 05/02/2016 19:30:00 DIS Emergency DOLORES CRUZ [facility] ER RASH [id number] 04/05/2016 18:02:00 04/05/2016 19:09:00 DIS Emergency DOLORES CRUZ [facility] ER RASH L LEG [id number] 03/07/2016 18:07:00 03/07/2016 19:52:00 DIS Emergency GENARO ROJO, BING Cabrera [facility] ER "NOT FEELING WELL"; DIARRHEA [id number] 02/08/2016 11:05:00 02/08/2016 23:59:59 CLS Outpatient KATHRIN MCGUIRE [facility] CARD CAD,CHEST PAIN,HTN,HLP [id number] 02/04/2016 20:17:00 02/04/2016 21:01:00 DIS Emergency PEDRO BORREGO DO [facility] ER BODY RASH, ITCHING [id number] 01/24/2016 08:47:00 01/24/2016 23:59:59 CLS Outpatient KATHRIN MCGUIRE [facility] CARD CAD,CHEST PAIN,HLP,HTN [id number] 01/19/2016 09:40:00 01/19/2016 23:59:59 CLS Outpatient DANIELLA GONZALEZ DO [facility] RAD SCREENING [id number] 12/26/2015 12:10:00 12/26/2015 23:59:59 CLS Outpatient KATHRIN MCGUIRE [facility] LAB ATHEROSCLEROTIC HEART DISEASE [id number] 12/26/2015 12:04:00 12/26/2015 23:59:59 CLS Outpatient DANIELLA GONZALEZ DO Suzette [facility] LAB HYPOTHYROID [id number] 11/30/2015 09:28:00 11/30/2015 23:59:59 CLS Outpatient PJJACKIE MALDONADO DANIELLA Bradford [facility] LAB HYPERLIPIDEMIA, HYPERTHYROID [id number] 11/19/2015 14:31:00 11/19/2015 15:24:00 DIS Emergency DOLORES CRUZ [facility] ER L LEG RASH [id number] 10/07/2015 22:08:00 10/07/2015 23:31:00 DIS Emergency TANJA SANDOVAL MD [facility] ER CHEST HURTING;HEADACHE; NAUSEA [id number] 10/06/2015 08:41:00 10/06/2015 23:59:59 CLS Outpatient BOBBI LEWIS MD [facility] LAB CAD,CHEST PAIN,DYSPNEA, HTN,HYPERLIPIDEMIA [id number] 06/23/2015 07:34:00 06/23/2015 23:59:59 CLS Outpatient DANIELLA GONZALEZ DO Suzette [facility] LAB SOB,HTN [id number] 06/03/2015 00:04:00 06/03/2015 01:01:00 DIS Emergency KORIN STRATTON DO [facility] ER LEFT INDEX FINGER LAC [id number] 04/05/2015 19:16:00 04/05/2015 20:35:00 DIS Emergency PEDRO BORREGO DO [facility] ER LEFT FOOT PAIN [id number] 02/07/2015 13:14:00 02/07/2015 23:59:59 CLS Outpatient LISA MALDONADO DANIELLA [place] [facility] LAB SYNCOPE,DIABETES [id number] 02/04/2015 22:59:00 02/05/2015 01:27:00 DIS Emergency BING LAM MD [facility] ER RIGHT HAND INJURY [id number] 01/03/2015 07:20:00 01/03/2015 23:59:59 CLS Outpatient KATHRIN MCGUIRE [facility] CARD BRADYCARDIA, CAD,HLP [id number] 12/20/2014 15:27:00 12/20/2014 23:59:59 CLS Outpatient LISA DANIELLA [facility] RAD SCREENING [id number] 12/02/2014 14:57:00 12/02/2014 23:59:59 CLS Outpatient KIMNEWBERRY DANIELLA [place] [facility] LAB HYPOTHYROID,DIABETES [id number] 12/02/2014 07:37:00 12/02/2014 23:59:59 CLS Outpatient KATHRIN MCGUIRE [facility] CARD CAD,HLP, BRADYCARDIA [id number] 11/14/2014 23:50:00 11/15/2014 01:28:00 DIS Emergency MEKHI VIEYRA MD [facility] ER VOMITING [id number] 10/06/2014 10:59:00 10/06/2014 13:14:00 DIS Emergency PEDRO BORREGO DO [facility] ER LEFT SIDE BURNING [id number] 09/11/2014 16:02:00 09/11/2014 18:02:00 DIS Emergency ABEBA OBRIEN APRN [facility] ER RASH [id number] 09/08/2014 12:42:00 09/08/2014 14:26:00 DIS Emergency DOLORES CRUZ [facility] ER RASH [id number] 08/27/2014 11:02:00 08/27/2014 12:10:00 DIS Emergency ABEBA OBRIEN APRN [facility] ER LEFT FLANK PAIN [id number] 08/15/2014 12:37:00 08/15/2014 13:53:00 DIS Emergency ABEBA OBRIEN APRN [facility] ER RASH [id number] 08/14/2014 21:09:00 08/14/2014 22:36:00 DIS Emergency ELMO DO PEDRO K [facility] ER RASH ALL OVER BODY [id number] 04/21/2014 12:06:00 04/21/2014 23:59:59 CLS Outpatient BOBBI LEWIS MD [facility] CATH BRADYCARDIA,NEAR SYNCOPE [id number] 04/16/2014 21:22:00 04/17/2014 00:57:00 DIS Emergency BING LAM MD [facility] ER FALL [id number] 01/08/2014 09:31:00 01/08/2014 12:55:00 DIS Emergency GENARO ROJO, BING Cabrera [facility] ER DIZZINESS/LIP NUMBNESS [id number] 12/17/2013 09:49:00 12/17/2013 23:59:59 CLS Outpatient DANIELLA GONZALEZ DO [facility] RAD SCREENING [id number] 12/01/2013 21:45:00 12/04/2013 10:15:00 DIS Inpatient DANIELLA GONZALEZ DO [facility] 4TH VERTIGO,HYPOTENSION, DIARRHEA [id number] 11/15/2013 15:02:00 11/15/2013 23:59:59 CLS Outpatient DANIELLA GONZALEZ DO [facility] LAB DIABETES [id number] 11/15/2013 15:19:00 11/15/2013 16:32:00 DIS Emergency ABEBA OBRIEN APRN [facility] ER VOMITING [id number] 10/29/2013 20:59:00 10/29/2013 22:45:00 DIS Emergency KORIN STRATTON DO [facility] ER DIZZINESS [id number] 10/14/2013 08:22:00 10/14/2013 23:59:59 CLS Outpatient KATHRIN MCGUIRE [facility] CARD BRADYCARDY, CAD,DM,HLP [id number] 09/08/2013 21:47:00 09/10/2013 17:40:00 DIS Inpatient DANIELLA GONZALEZ DO [facility] 4TH TIA/CHEST PAIN [id number] 08/30/2013 09:29:00 08/30/2013 23:59:59 CLS Outpatient KATHRIN MCGUIRE [facility] LAB HYPERLIPIDEMIA [id number] 04/01/2013 11:06:00 04/02/2013 17:50:00 DIS Inpatient RENATO MACE MD [facility] ICU LEFT CAROTID STENOSIS [id number] 03/30/2013 09:41:00 03/30/2013 23:59:59 CLS Outpatient RENATO MACE MD [facility] PREOP LEFT CAROTID STENOSIS [id number] 03/09/2013 06:42:00 03/09/2013 13:00:00 DIS Outpatient BOBBI LEWIS MD [facility] CATH ABNORMAL STRESS, CP CAD, HTN,HLP [id number] 03/04/2013 10:21:00 03/04/2013 23:59:59 CLS Outpatient BOBBI LEWIS MD [facility] CARD CP,CAD,HLP,HTN [id number] 03/03/2013 13:05:00 03/03/2013 23:59:59 CLS Outpatient BOBBI LEWIS MD [facility] LAB CP,DIABETES,CAD, HYPERLIPIDEMIA [id number] 02/22/2013 17:30:00 02/22/2013 21:50:00 DIS Emergency PEDRO BORREGO DO [facility] ER VOMITTING,BLACK OUTS [id number] 12/17/2012 23:49:00 12/18/2012 01:31:00 DIS Emergency PEDRO BORREGO DO [facility] ER LFT SHOULDER PAIN [id number] 11/27/2012 14:29:00 11/27/2012 23:59:59 CLS Outpatient DANIELLA GONZALEZ DO [facility] RAD SCREENING [id number] 10/04/2012 16:01:00 10/04/2012 20:56:00 DIS Emergency MEKHI VIEYRA MD [facility] ER BOTH ARMS ARE NUMB [id number] 03/31/2015 08:23:00 Document Registration [id number] 02/19/2015 22:08:00 Document Registration [id number] 04/17/2014 01:05:00 Document Registration [id number] 10/23/2012 11:00:00 Document Registration [id number] 07/24/2012 10:48:00 Document Registration [id number] 05/19/2012 10:22:00 Document Registration [id number] 03/17/2012 11:55:00 Document Registration [id number] 03/14/2012 08:14:00 Document Registration [id number] 02/29/2012 21:19:00 Document Registration [id number] 02/06/2012 17:56:00 Document Registration [id number] 01/20/2012 20:04:00 Document Registration [id number] 01/14/2012 08:51:00 Document Registration [id number] 11/26/2011 13:08:00 Document Registration [id number] 10/09/2011 08:14:00 Document Registration [id number] 09/28/2011 07:21:00 Document Registration [id number] 06/10/2011 19:01:00 Document Registration [id number] 05/10/2011 19:33:00 Document Registration [id number] 04/09/2011 09:11:00 Document Registration [id number] 12/01/2010 08:10:00 Document Registration [id number] 11/24/2010 17:36:00 Document Registration [id number] 09/09/2010 12:43:00 Document Registration [id number] 07/31/2010 17:30:00 Document Registration [id number] 07/13/2010 10:14:00 Document Registration [id number] 07/10/2010 07:19:00 Document Registration [id number] 06/10/2010 16:55:00 Document Registration [id number] 06/08/2010 08:43:00 Document Registration [id number] 06/07/2010 08:34:00 Document Registration [id number] 05/10/2010 16:53:00 Document Registration [id number] 04/14/2010 21:16:00 Document Registration [id number] 05/15/2016 13:05:00 Document Registration [id number] 10/04/2016 08:43:00 Document Registration [id number] 11/15/2016 12:07:00 Document Registration [id number] 12/17/2017 13:20:00 12/17/2017 23:59:59 [facility] [place] [id number] 11/19/2017 10:00:00 Document Registration [id number] 03/06/2017 10:20:00 Document Registration
--- NOTE | 2018-04-12 12:01 | Diagnostic Imaging Report ---
PROCEDURE: CT head, face, and cervical spine without contrast. TECHNIQUE: Multiple contiguous axial images were obtained through the head, neck, and facial bones without the use of intravenous contrast. Sagittal and coronal reformations through the cervical spine and facial bones were also performed. INDICATION: Fall with bruising to nasal bones and forehead as well as headache and dizziness. Comparison is made with prior CT from 07/21/2016. CT head: There is soft tissue swelling in the frontal scalp. The ventricles and sulci are within normal limits. No sulcal effacement, midline shift or hemorrhage is detected. Cisterns are patent. Visualized paranasal sinuses are clear. IMPRESSION: Frontal scalp swelling. No acute intracranial process is detected. CT cervical spine: There is straightening of the normal cervical lordotic curvature. Alignment is normal. There is degenerative disc disease C5-C6 and C6-C7 levels, with disc space narrowing and marginal spurring. No fractures are seen. The odontoid is intact. IMPRESSION: Cervical spondylosis. No acute bony abnormality is detected. CT maxillofacial: The mandible is intact. Zygomatic arches appear intact. Maxillary sinus mckenzie and nasal bones are intact. No definite orbital fracture is seen. Soft tissue swelling in the frontal soft tissues is noted. IMPRESSION: Frontal scalp swelling. No facial bone fracture is detected. Dictated by: Dictated on workstation # [id number]
--- NOTE | 2018-04-12 12:05 | Diagnostic Imaging Report ---
INDICATION: Fall and left elbow pain. TIME OF EXAM: 11:54 AM 3 views left elbow are obtained. FINDINGS: Alignment is normal. Joint spaces are well maintained. No fracture, dislocation or effusion is detected. IMPRESSION: No acute bony abnormality is detected. Dictated by: Dictated on workstation # [id number]
--- NOTE | 2018-04-12 12:08 | Diagnostic Imaging Report ---
INDICATION: Fall and left shoulder pain. TIME OF EXAM: 11:58 AM 3 views left shoulder were obtained. FINDINGS: Glenohumeral and acromioclavicular alignment are normal. Acromiohumeral space is normal. No fracture or dislocation is seen. IMPRESSION: No acute abnormality is detected. Dictated by: Dictated on workstation # [id number]
[2018-04-12] MEDS ORDERED: RX-HYDROCODONE/APAP 5/325 MG #4 TAB PK PO PRN (12:30)
[2018-04-12 12:34] VITALS: BP 148/69
== END 2018-04-12 12:37 | disposition home or self-care (01) ==
LOC: EDUNIT# 10:51 → ER 10:51
DX: S09.90XA Unspecified injury of head, initial encounter (principal); S40.012A Contusion of left shoulder, initial encounter; S00.83XA Contusion of other part of head, initial encounter; S50.02XA Contusion of left elbow, initial encounter; I25.10 Atherosclerotic heart disease of native coronary artery without angina pectoris; E78.00 Pure hypercholesterolemia, unspecified; I10 Essential (primary) hypertension; E03.9 Hypothyroidism, unspecified; E11.59 Type 2 diabetes mellitus with other circulatory complications; I73.9 Peripheral vascular disease, unspecified; R40.2142 Coma scale, eyes open, spontaneous, at arrival to emergency department; R40.2252 Coma scale, best verbal response, oriented, at arrival to emergency department; R40.2362 Coma scale, best motor response, obeys commands, at arrival to emergency department; Z87.448 Personal history of other diseases of urinary system; Z82.49 Family history of ischemic heart disease and other diseases of the circulatory system; Z80.51 Family history of malignant neoplasm of kidney; Z80.8 Family history of malignant neoplasm of other organs or systems; Z88.2 Allergy status to sulfonamides; Z79.82 Long term (current) use of aspirin; Z79.02 Long term (current) use of antithrombotics/antiplatelets; Z87.891 Personal history of nicotine dependence; Z98.890 Other specified postprocedural states; Z90.89 Acquired absence of other organs; Z95.9 Presence of cardiac and vascular implant and graft, unspecified; Z95.5 Presence of coronary angioplasty implant and graft; Z79.52 Long term (current) use of systemic steroids; W01.0XXA Fall on same level from slipping, tripping and stumbling without subsequent striking against object, initial encounter; Y92.480 Sidewalk as the place of occurrence of the external cause
CPT/HCPCS: 70450; 70486; 72125; 73030; 73080

== ENCOUNTER 2018-10-03 11:53 | Outpatient (CLI) | payer MEDICARE ==
[~2018-10-03] VITALS: Ht 167.6 cm; Wt 91.2 kg
[2018-10-03 12:08] VITALS: BP 156/76
[2018-10-03] MEDS ORDERED: LEVO75TA6 PO (12:38)
[2018-10-03] MEDS ORDERED: ISM60TCR PO (12:38)
[2018-10-03] MEDS ORDERED: ROPI0.5T2 PO (12:38)
[2018-10-03] MEDS ORDERED: HYDR25TA4 PO (12:38)
[2018-10-03] MEDS ORDERED: OMEG1CAP57 PO (12:38)
[2018-10-03] MEDS ORDERED: CYAN500T44 PO (12:38)
[2018-10-03] MEDS ORDERED: ROSU10TA27 PO (12:38)
[2018-10-03] MEDS ORDERED: ASPI-999 PO (12:38)
[2018-10-03] MEDS ORDERED: MECL-106 PO (12:38)
[2018-10-03] MEDS ORDERED: LISI-552 PO (12:38)
== END 2018-10-03 12:27 | disposition home or self-care (01) ==
LOC: PREOP 11:53
PROVIDERS: ATTEND Surgery
DX: Z01.818 Encounter for other preprocedural examination (principal)
CPT/HCPCS: 87081

== ENCOUNTER 2018-10-08 06:38 | Day surgery (SDC) | payer MEDICARE ==
[~2018-10-08] VITALS: Ht 167.6 cm; Wt 91.2 kg
[2018-10-08] VITALS (12 sets, daily range): BP systolic 149–199; BP diastolic 59–85
[~2018-10-08 06:38] MED LIST changes: +ASPI-999 PO; +CYAN500T44 PO; +ISM60TCR PO; +LEVO75TA6 PO; +LISI-552 PO; +OMEG1CAP57 PO; +ROPI0.5T2 PO; +ROSU10TA27 PO
--- OUTSIDE RECORDS SUMMARY | 2018-10-08 06:52 | XMS REPORT ---
Author Author Migration, Doctor Organization [facility] Address Unknown Phone Unavailable Care Team Providers Care Ring Conductor Name Role Phone Migration, Doctor Unavailable Unavailable PROBLEMS Type Condition ICD9-CM Code VRD25-DX Code Onset Dates Condition Status SNOMED Code Problem Vitamin D deficiency E55.9 Active 94645530 Problem Renal insufficiency N28.9 Active 308766707 Problem Coronary artery disease involving [place] coronary artery of [place] heart without angina pectoris I25.10 Active 4950826476434 Problem Type 2 diabetes mellitus without complication, without long-term current use of insulin E11.9 Active 964068801 Problem Mixed hyperlipidemia E78.2 Active 094163363 Problem Essential hypertension I10 Active 10028939 Problem Type 2 diabetes mellitus with diabetic chronic kidney disease E11.22 Active 43688045 Problem Chronic kidney disease, stage 1 N18.1 Active 613909021 Problem Low back pain M54.5 Active 377827397 Problem Seasonal allergies J30.2 Active 382785470 Problem Restless leg syndrome G25.81 Active 56461145 Problem Grief F43.21 Active 819971261 Problem Acquired hypothyroidism E03.9 Active 619214977 Problem Osteoarthritis of spine with radiculopathy, cervical region M47.22 Active 966262086 Problem Bilateral carotid artery disease I77.9 Active 208321008 Problem Hypercalcemia E83.52 Active 21298608 Problem Mixed incontinence N39.46 Active 336629131 ALLERGIES No Information ENCOUNTERS Encounter Location Date Diagnosis [facility] [id number], [place] [address] September, Mixed hyperlipidemia E78.2 ; Type 2 diabetes mellitus without complication, without long-term current use of insulin E11.9 ; Acquired hypothyroidism E03.9 and Essential hypertension I10 [facility] [id number], [place] [address] September, [facility] [id number], [place] [address] September, [facility] [id number] [place] [address] Aug, Grief F43.21 ; Coronary artery disease involving [place] coronary artery of [place] heart without angina pectoris I25.10 and Lipoma of right upper extremity D17.21 [facility] [id number] [place] [address] Jul, Mixed hyperlipidemia E78.2 and Acquired hypothyroidism E03.9 [facility] [address] [address] Jul, [facility] [address] [address] Jul, Acute anterior epistaxis R04.0 [facility] [address] [address] Jun, Low back pain M54.5 and Coronary artery disease involving [place] coronary artery of [place] heart without angina pectoris I25.10 [facility] [id number] [place] [address] 14 Jun, 2018 Essential hypertension I10 [facility] [address] [address] 04 Jun, 2018 Low back pain M54.5 [facility] [id number] [place] [address] Jun, [facility] [id number] [place] [address] May, Seasonal allergies J30.2 [facility] [address] [address] May, Low back pain M54.5 [facility] [id number] [place] [address] May, Mixed hyperlipidemia E78.2 ; Vertigo R42 ; Essential hypertension I10 ; Coronary artery disease involving [place] coronary artery of [place] heart without angina pectoris I25.10 and Mixed incontinence N39.46 [facility] [id number] [place] [address] Apr, Contusion of face, initial encounter S00.83XA ; Low back pain M54.5 and Strain of left shoulder, initial encounter S46.912A [facility] [id number] [place] [address] Apr, [facility] [id number] [place] [address] Mar, [facility] [id number] [place] [address] Mar, [facility] [id number] [place] [address] Mar, Low back pain M54.5 ; Acquired hypothyroidism E03.9 ; Coronary artery disease involving [place] coronary artery of [place] heart without angina pectoris I25.10 ; Mixed hyperlipidemia E78.2 and Vertigo R42 [facility] [id number] [place] [address] Mar, [facility] [id number] [place] [address] Feb, Vertigo R42 [facility] [id number] [place] [address] Feb, [facility] [id number] [place] [address] Feb, Low back pain M54.5 [facility] [id number] [place] [address] Feb, Essential hypertension I10 ; Mixed hyperlipidemia E78.2 ; Coronary artery disease involving [place] coronary artery of [place] heart without angina pectoris I25.10 ; Screening for breast cancer Z12.31 and Mixed incontinence N39.46 [facility] [id number] [place] [address] Jan, [id number] [place] [address] 06 Jan, 2018 Coronary artery disease involving [place] coronary artery of [place] heart without angina pectoris I25.10 [facility] [id number] [place] [address] 04 Jan, 2018 Low back pain M54.5 and Coronary artery disease involving [place] coronary artery of [place] heart without angina pectoris I25.10 [address] [place] [id number] [place] [address] Dec, Acquired hypothyroidism E03.9 and Vertigo R42 [address] [place] [address] [address] Dec, Low back pain M54.5 and Dermatitis L30.9 [address] [facility] [id number] [place] [address] Nov, Coronary artery disease involving [place] coronary artery of [place] heart without angina pectoris I25.10 [address] [facility] [id number] [place] [address] Nov, Acquired hypothyroidism E03.9 and Vertigo R42 [address] [facility] [id number] [place] [address] Nov, Encounter for well woman exam Z01.419 ; Screening for osteoporosis Z13.820 and Screening for colon cancer Z12.11 [address] [facility] [id number] [place] [address] Oct, Coronary artery disease involving [place] coronary artery of [place] heart without angina pectoris I25.10 [address] [facility] [id number] [place] [address] September, [address] [facility] [id number] [place] [address] September, [address] [place] [id number] [place] [address] Aug, Type 2 diabetes mellitus without complication, without long-term current use of insulin E11.9 ; Essential hypertension I10 ; Acquired hypothyroidism E03.9 and Low back pain M54.5 [facility] [id number] [place] [address] Aug, [facility] [id number] [place] [address] Aug, [facility] [id number] [place] [address] Jul, [facility] [id number] [place] [address] Jul, Coronary artery disease involving [place] coronary artery of [place] heart without angina pectoris I25.10 [facility] [id number] [place] [address] Jun, Low back pain M54.5 and Essential hypertension I10 [facility] [id number] [place] [address] Jun, Head cold J00 [facility] [id number] [place] [address] May, [facility] [id number] [place] [address] Apr, Type 2 diabetes mellitus without complication, without long-term current use of insulin E11.9 [facility] [address], [place] [address] Apr, Type 2 diabetes mellitus without complication, without long-term current use of insulin E11.9 [facility] [address], [place] [address] Apr, Essential hypertension I10 [facility] [id number] [place] [address] Mar, [facility] [address], [place] [address] Mar, [facility] [id number] [place] [address] Mar, Osteoarthritis of spine with radiculopathy, cervical region M47.22 [address] [place] [id number] [place] [address] Mar, [address] [id number] [place] [address] Feb, [address] [address] Feb, Screening breast examination Z12.31 ; Bilateral carotid artery disease I77.9 ; Low back pain M54.5 ; Osteoarthritis of spine with radiculopathy, cervical region M47.22 ; Renal insufficiency N28.9 ; Vitamin D deficiency E55.9 ; Restless leg syndrome G25.81 ; Acquired hypothyroidism E03.9 ; Coronary artery disease involving [place] coronary artery of [place] heart without angina pectoris I25.10 ; Vertigo R42 ; Essential hypertension I10 ; Type 2 diabetes mellitus with diabetic chronic kidney disease E11.22 and Encounter for immunization Z23 [id number] [place] [address] Jan, [id number] [place] [address] Jan, Type 2 diabetes mellitus without complication, without long-term current use of insulin E11.9 ; Low back pain M54.5 ; Osteoarthritis of spine with radiculopathy, cervical region M47.22 ; Renal insufficiency N28.9 ; Vitamin D deficiency E55.9 ; Restless leg syndrome G25.81 ; Bilateral carotid artery disease I77.9 ; Acquired hypothyroidism E03.9 ; Coronary artery disease involving [place] coronary artery of [place] heart without angina pectoris I25.10 and Lipoma of back D17.1 [address] [place] [id number] [place] [address] Jan, Type 2 diabetes mellitus without complication, without long-term current use of insulin E11.9 [place] [place] [id number] [place] [address] Dec, Osteoarthritis of spine with radiculopathy, cervical region M47.22 [address] [place] [id number] [place] [address] Nov, [address] [id number] [place] [address] Nov, Low back pain M54.5 and Osteoarthritis of spine with radiculopathy, cervical region M47.22 [address] [place] [id number] [place] [address] Nov, Osteoarthritis of spine with radiculopathy, cervical [...] hypothyroidism E03.9 ; Coronary artery disease involving [place] coronary artery of [place] heart without angina pectoris I25.10 ; Hypercalcemia E83.52 and Left foot pain M79.672 [id number] [place] [address] Oct, [id number] [place] [address] Oct, Osteoarthritis of spine with radiculopathy, cervical region M47.22 [id number] [place] [address] Oct, Abnormal blood chemistry R79.9 [id number] [place] [address] September, Osteoarthritis of spine with radiculopathy, cervical region M47.22 ; Essential hypertension I10 ; Renal insufficiency N28.9 ; Type 2 diabetes mellitus without complication, without long-term current use of insulin E11.9 ; Vitamin D deficiency E55.9 ; Paresthesia of both hands R20.2 ; Low back pain M54.5 ; Restless leg syndrome G25.81 and Dizziness R42 [facility] [address], [place] [address] September, [facility] [id number], [place] [address] September, [facility] [id number] [place] [address] September, [facility] [id number] [place] [address] September, [facility] [id number] [place] [address] Aug, [facility] [id number] [place] [address] Aug, [facility] [id number] [place] [address] Aug, [facility] [address] [place] [address] Aug, [facility] [id number] [place] [address] Aug, Osteoarthritis of spine with radiculopathy, cervical region M47.22 [facility] [address], [place] [address] Aug, Essential hypertension I10 ; Renal insufficiency N28.9 ; Type 2 diabetes mellitus without complication, without long-term current use of insulin E11.9 ; Vitamin D deficiency E55.9 ; Paresthesia of both hands R20.2 ; Low back pain M54.5 ; Restless leg syndrome G25.81 ; Osteoarthritis of spine with radiculopathy, cervical region M47.22 and Dizziness R42 [facility] [address], [place] [address] Jul, [facility] [id number] [place] [address] Jul, [address], [place] [address] Jul, Essential hypertension I10 ; Paresthesia of both hands R20.2 ; Upper respiratory tract infection, unspecified type J06.9 and Low back pain M54.5 [address] [place] [id number] [place] [address] 15 Jul, 2016 [address] [id number] [place] [address] Jul, [address] [id number] [place] [address] Jul, Renal insufficiency N28.9 ; Vitamin D deficiency E55.9 ; Type 2 diabetes mellitus without complication, without long-term current use of insulin E11.9 ; Restless leg syndrome G25.81 ; Type 2 diabetes mellitus with diabetic chronic kidney disease E11.22 and Chronic kidney disease, stage 1 N18.1 [address] [place], [place] [address] Jul, Renal insufficiency N28.9 [address] [place] [id number] [place] [address] 10 Jun, 2016 [address] [id number] [place] [address] Jun, Renal insufficiency N28.9 ; Vitamin D deficiency E55.9 ; Type 2 diabetes mellitus without complication, without long-term current use of insulin E11.9 ; Restless leg syndrome G25.81 ; Type 2 diabetes mellitus with diabetic chronic kidney disease E11.22 and Chronic kidney disease, stage 1 N18.1 [address] [place] [address] Jun, [address], [place] [address] May, [address] [id number] [place] [address] May, [facility] [address], [place] [address] May, [facility] [id number] [place] [address] May, [facility] [id number] [place] [address] May, [facility] [id number] [place] [address] Apr, Acquired hypothyroidism E03.9 ; Essential hypertension I10 ; Type 2 diabetes mellitus without complication, without long-term current use of insulin E11.9 and Mixed hyperlipidemia E78.2 [address] [place] [id number] [place] [address] Apr, Type 2 diabetes mellitus without complication, without long-term current use of insulin E11.9 ; Coronary artery disease involving [place] coronary artery of [place] heart without angina pectoris I25.10 ; Essential hypertension I10 and Acquired hypothyroidism E03.9 [facility] [address] [place] [address] Apr, Cellulitis of left lower extremity L03.116 [address] [place] [id number] [place] [address] Apr, Essential hypertension I10 ; Mixed hyperlipidemia E78.2 ; Type 2 diabetes mellitus without complication, without long-term current use of insulin E11.9 ; Acquired hypothyroidism E03.9 ; Cellulitis of left lower extremity L03.116 and Coronary artery disease involving [place] coronary artery of [place] heart without angina pectoris I25.10 [facility] [address] [place] [address] Apr, [facility] [id number] [place] [address] Dec, Dermatitis L30.9 [facility] [address] [place] [address] Aug, [address] [place] [id number] [place] [address] Aug, [facility] [place] [facility] [address] [id number] [place] [address] Jan, [facility] [place] [facility] [address] [id number] [place] [address] Jan, [facility] [place] [facility] [address] [id number] [place] [address] Jun, [facility] [place] [facility] [address] [id number] [place] [address] May, [facility] [place] [facility] [address] [id number] [place] [address] May, [facility] [place] [facility] [address] [id number] [place] [address] May, [facility] [place] [facility] [address] [id number] [place] [address] Apr, [facility] [place] [facility] [address] [id number] [place] [address] Feb, [facility] [place] [facility] [address] [id number] [place] [address] Feb, [facility] [place] [facility] [address] [id number] [place] [address] Nov, [facility] [place] [facility] [address] [id number] [place] [address] Nov, [facility] [place] [facility] [address] [id number] [place] [address] Nov, [facility] [place] [facility] [address] [id number] [place] [address] Nov, [facility] [place] [facility] [address] [id number] [place] [address] Nov, [facility] [place] [facility] [address] [id number] [place] [address] Nov, [facility] [address] [id number] [place] [address] Nov, IMMUNIZATIONS No Known Immunizations SOCIAL HISTORY Never Assessed REASON FOR [place]ISIT [place] [place] VITAL SIGNS MEDICATIONS No Known Medications RESULTS No Results PROCEDURES No Known [...]
--- OUTSIDE RECORDS SUMMARY | 2018-10-08 06:52 | XMS REPORT | Clinical Summary ---
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 If you d o not see the information that you expected, contact Release of Information in [facility] [employer] Information Management department at [phone] for further assistan ce in locating additional records.[facility] Allergies Comments Active Allergy Reactions Severity Noted Date Exenatide Microspheres HIVES Medium 10/26/2016 Sulfa (Sulfonamide [facility] 10/26/2016 Antibiotics) Medications End Date Status Medication Sig Dispensed Refills Start Date Active lisinopril (PRINIVIL; Take 10 mg by 0 ZESTRIL) 10 mg tablet mouth daily. Active traMADol (ULTRAM) 50 mg Take 50 mg by 0 tablet mouth every 6 hours as needed for Pain. Active DIMENHYDRINATE (TRAVEL Take by 0 SICKNESS PO) mouth as Needed. Active fenofibrate Take 145 mg 0 nanocrystallized (TRICOR) by mouth 145 mg tablet daily. Take with food. Active rOPINIRole (REQUIP) 0.5 Take 0.5 mg 0 mg tablet by mouth three times daily. Active clopiDOGrel (PLAVIX) 75 Take 75 mg by 0 mg tablet mouth daily. Active rosuvastatin (CRESTOR) 20 Take 20 mg by 0 mg tablet mouth daily. Active hydroCHLOROthiazide Take 25 mg by 0 (HYDRODIURIL) 25 mg mouth every tablet morning. Active metoprolol tartrate Take 25 mg by 0 (LOPRESSOR) 25 mg tablet mouth twice daily. Active potassium chloride(+) Take 10 mEq 0 (MICRO-K) 10 mEq capsule by mouth daily. Take with a meal and a full glass of water. Active isosorbide mononitrate SR Take 60 mg by 0 (IMDUR) 60 mg tablet mouth every morning. Active DOCOSAHEXANOIC ACID/EPA Take by 0 (FISH OIL PO) mouth twice daily. Active levothyroxine (SYNTHROID) Take 75 mcg 0 75 mcg tablet by mouth daily 30 minutes before breakfast. Active vitamins, B complex tab Take 1 Tab by 0 mouth daily. Active aspirin 325 mg tablet Take 81 mg by 0 mouth daily. Take with food. Active dulaglutide 0.75 mg/0.5 Inject under 0 mL pnij the skin. Active gabapentin (NEURONTIN) TAKE ONE 150 capsule 0 100 mg capsule CAPSULE BY 9 MOUTH IN THE MORNING, ONE CAPSULE IN THE AFTERNOON, AND THREE CAPSULES AT BEDTIME Active Problems No known active problems Social History Date Tobacco Use Types Packs/Day Years Used Former Smoker Smokeless Tobacco: Former User Sex Assigned at Date Recorded Not on file Industry Job Start Date Occupation Not on file Not on file Not on file Travel End Travel History Travel Start No recent travel history available. Last Filed Vital Signs Time Taken Vital Sign Reading 10/15/2017 3:08 PM CDT Blood Pressure 166/71 10/15/2017 3:08 PM CDT Pulse 67 10/15/2017 2:19 PM CDT Temperature 36.7 C (98 F) 01/18/2017 12:47 PM CDT Respiratory Rate 17 10/15/2017 3:08 PM CDT Oxygen Saturation 99% - Inhaled Oxygen - Concentration 10/15/2017 2:19 PM CDT Weight 76.7 kg (169 lb) 10/15/2017 2:19 PM CDT Height 167.6 cm (5' 6") 10/15/2017 2:19 PM CDT Body Mass Index 27.28 Plan of Treatment Health Maintenance Due Date Last Done Comments HEPATITIS C SCREENING 1953 PHYSICAL (COMPREHENSIVE) 1960 EXAM HIV SCREENING 1968 DTAP/TDAP VACCINES (1 - 07/29/1971 Tdap) BREAST CANCER SCREENING 1993 COLORECTAL CANCER 07/29/2003 SCREENING SHINGLES RECOMBINANT 07/29/2003 VACCINE (1 of 2) OSTEOPOROSIS 2018 SCREENING/MONITORING PNEUMONIA (PCV13/PPSV23) 2018 VACCINES (1 of 2 - PCV13) INFLUENZA VACCINE 02/10/2019 01/17/2016, 01/04/2011 Results Not on filefrom Last 3 Months Insurance Type Payer Benefit Subscriber ID Effective Phone Address Plan / Dates Group Medicaid [facility] [place]ICA[place] xxxxxxxxxxx 2010- STATE Present HEALTH Medicare MEDICARE MEDICARE [id number] 2018-P PART A AND resent B ([place]) [place] [address] Advance Directives Patient has advance care planning documents on file. For more information, natanael butts contact: [facility] [address] [place] [address]
--- OUTSIDE RECORDS SUMMARY | 2018-10-08 06:52 | XMS REPORT ---
Author Author Migration, Doctor Organization [facility] Address Unknown Phone Unavailable Care Team Providers Care Clipper And Turner Name Role Phone Migration, Doctor Unavailable Unavailable PROBLEMS Type Condition ICD9-CM Code RAZ05-NW Code Onset Dates Condition Status SNOMED Code Problem Vitamin D deficiency E55.9 Active 85953659 Problem Renal insufficiency N28.9 Active 540403622 Problem Coronary artery disease involving [place] coronary artery of [place] heart without angina pectoris I25.10 Active 9156340754644 Problem Type 2 diabetes mellitus without complication, without long-term current use of insulin E11.9 Active 254083605 Problem Mixed hyperlipidemia E78.2 Active 747136967 Problem Essential hypertension I10 Active 04340373 Problem Type 2 diabetes mellitus with diabetic chronic kidney disease E11.22 Active 89744838 Problem Chronic kidney disease, stage 1 N18.1 Active 298136616 Problem Low back pain M54.5 Active 517440701 Problem Seasonal allergies J30.2 Active 472698169 Problem Restless leg syndrome G25.81 Active 65702863 Problem Grief F43.21 Active 763152629 Problem Acquired hypothyroidism E03.9 Active 148043668 Problem Osteoarthritis of spine with radiculopathy, cervical region M47.22 Active 346438483 Problem Bilateral carotid artery disease I77.9 Active 393787894 Problem Hypercalcemia E83.52 Active 34987292 Problem Mixed incontinence N39.46 Active 491135177 ALLERGIES No Information ENCOUNTERS Encounter Location Date Diagnosis [facility] [address] [facility] [id number] [address] September, [facility] [id number] [place] [address] Aug, Grief F43.21 ; Coronary artery disease involving [place] coronary artery of [place] heart without angina pectoris I25.10 and Lipoma of right upper extremity D17.21 [facility] [id number] [address] Jul, Mixed hyperlipidemia E78.2 and Acquired hypothyroidism E03.9 [facility] [address] [address] Jul, [facility] [address] [address] Jul, Acute anterior epistaxis R04.0 [facility] [address] [address] Jun, Low back pain M54.5 and Coronary artery disease involving [place] coronary artery of [place] heart without angina pectoris I25.10 [place] [address] [address] 14 Jun, 2018 Essential hypertension I10 [place] [address] [address] 04 Jun, 2018 Low back pain M54.5 [place] [address] [address] Jun, [facility] [address] [address] May, Seasonal allergies J30.2 [place] [address] [address] May, Low back pain M54.5 [place] [address] [address] May, Mixed hyperlipidemia E78.2 ; Vertigo R42 ; Essential hypertension I10 ; Coronary artery disease involving [place] coronary artery of [place] heart without angina pectoris I25.10 and Mixed incontinence N39.46 [place] [address] [address] Apr, Contusion of face, initial encounter S00.83XA ; Low back pain M54.5 and Strain of left shoulder, initial encounter S46.912A [place] [address] [address] Apr, [facility] [address] [place] [address] Mar, [facility] [id number] [place] [address] Mar, [facility] [id number] [place] [address] Mar, Low back pain M54.5 ; Acquired hypothyroidism E03.9 ; Coronary artery disease involving [place] coronary artery of [place] heart without angina pectoris I25.10 ; Mixed hyperlipidemia E78.2 and Vertigo R42 [facility] [id number] [place] [address] Mar, [facility] [id number] [place] [address] Feb, Vertigo R42 [facility] [id number] [place] [address] Feb, [facility] [id number] [place] [address] Feb, Low back pain M54.5 [facility] [id number] [place] [address] Feb, Essential hypertension I10 ; Mixed hyperlipidemia E78.2 ; Coronary artery disease involving [place] coronary artery of [place] heart without angina pectoris I25.10 ; Screening for breast cancer Z12.31 and Mixed incontinence N39.46 [facility] [id number] [place] [address] Jan, [facility] [id number] [place] [address] Jan, Coronary artery disease involving [place] coronary artery of [place] heart without angina pectoris I25.10 [facility] [id number] [place] [address] Jan, Low back pain M54.5 and Coronary artery disease involving [place] coronary artery of [place] heart without angina pectoris I25.10 [facility] [id number] [place] [address] Dec, Acquired hypothyroidism E03.9 and Vertigo R42 [place] [address] [address] Dec, Low back pain M54.5 and Dermatitis L30.9 [place] [address] [address] Nov, Coronary artery disease involving [place] coronary artery of [place] heart without angina pectoris I25.10 [place] [address] [address] Nov, Acquired hypothyroidism E03.9 and Vertigo R42 [place] [address] [address] Nov, Encounter for well woman exam Z01.419 ; Screening for osteoporosis Z13.820 and Screening for colon cancer Z12.11 [place] [address] [address] Oct, Coronary artery disease involving [place] coronary artery of [place] heart without angina pectoris I25.10 [place] [id number] [place] [address] September, [place] [address] [address] September, [place] [address] [address] Aug, Type 2 diabetes mellitus without complication, without long-term current use of insulin E11.9 ; Essential hypertension I10 ; Acquired hypothyroidism E03.9 and Low back pain M54.5 [place] [address] [address] Aug, [place] [address] [address] Aug, [place] [id number] [place] [address] Jul, [facility] [id number] [place] [address] Jul, Coronary artery disease involving [place] coronary artery of [place] heart without angina pectoris I25.10 [facility] [address] [place] [address] Jun, Low back pain M54.5 and Essential hypertension I10 [facility] [id number] [place] [address] Jun, Head cold J00 [facility] [address] [address] May, [facility] [id number] [place] [address] Apr, Type 2 diabetes mellitus without complication, without long-term current use of insulin E11.9 [facility] [id number] [place] [address] Apr, Type 2 diabetes mellitus without complication, without long-term current use of insulin E11.9 [facility] [id number] [place] [address] Apr, Essential hypertension I10 [facility] [address] [place] [address] Mar, [facility] [address] [place] [address] Mar, [facility] [id number] [place] [address] Mar, Osteoarthritis of spine with radiculopathy, cervical region M47.22 [facility] [id number] [place] [address] Mar, [facility] [id number] [place] [address] Feb, [place] [id number] [place] [address] Feb, Screening breast examination Z12.31 ; Bilateral carotid artery disease I77.9 ; Low back pain M54.5 ; Osteoarthritis of spine with radiculopathy, cervical region M47.22 ; Renal insufficiency N28.9 ; Vitamin D deficiency E55.9 ; Restless leg syndrome G25.81 ; Acquired hypothyroidism E03.9 ; Coronary artery disease involving [place] coronary artery of [place] heart without angina pectoris I25.10 ; Vertigo R42 ; Essential hypertension I10 ; Type 2 diabetes mellitus with diabetic chronic kidney disease E11.22 and Encounter for immunization Z23 [place] [id number] [place] [address] Jan, [place] [id number] [place] [address] Jan, Type 2 diabetes mellitus without complication, without long-term current use of insulin E11.9 ; Low back pain M54.5 ; Osteoarthritis of spine with radiculopathy, cervical region M47.22 ; Renal insufficiency N28.9 ; Vitamin D deficiency E55.9 ; Restless leg syndrome G25.81 ; Bilateral carotid artery disease I77.9 ; Acquired hypothyroidism E03.9 ; Coronary artery disease involving [place] coronary artery of [place] heart without angina pectoris I25.10 and Lipoma of back D17.1 [place] [id number] [place] [address] Jan, Type 2 diabetes mellitus without complication, without long-term current use of insulin E11.9 [place] [id number] [place] [address] Dec, Osteoarthritis of spine with radiculopathy, cervical region M47.22 [place] [id number] [place] [address] Nov, [place] [id number] [place] [address] Nov, Low back pain M54.5 and Osteoarthritis of spine with radiculopathy, cervical region M47.22 [place] [address] [place] [address] Nov, Osteoarthritis of spine with radiculopathy, cervical [...] hypothyroidism E03.9 ; Coronary artery disease involving [place] coronary artery of [place] heart without angina pectoris I25.10 ; Hypercalcemia E83.52 and Left foot pain M79.672 [place] [id number] [place] [address] Oct, [place] [address] [address] Oct, Osteoarthritis of spine with radiculopathy, cervical region M47.22 [place] [id number] [place] [address] Oct, Abnormal blood chemistry R79.9 [place] [id number] [place] [address] September, Osteoarthritis of spine with radiculopathy, cervical region M47.22 ; Essential hypertension I10 ; Renal insufficiency N28.9 ; Type 2 diabetes mellitus without complication, without long-term current use of insulin E11.9 ; Vitamin D deficiency E55.9 ; Paresthesia of both hands R20.2 ; Low back pain M54.5 ; Restless leg syndrome G25.81 and Dizziness R42 [place] [id number] [place] [address] September, [place] [id number] [place] [address] September, [place] [address] [address] September, [facility] [address] [address] September, [facility] [address] [address] Aug, [facility] [address] [place] [address] Aug, [facility] [id number] [place] [address] Aug, [facility] [address] [place] [address] Aug, [facility] [address] [place] [address] Aug, Osteoarthritis of spine with radiculopathy, cervical region M47.22 [place] [address] [address] Aug, Essential hypertension I10 ; Renal insufficiency N28.9 ; Type 2 diabetes mellitus without complication, without long-term current use of insulin E11.9 ; Vitamin D deficiency E55.9 ; Paresthesia of both hands R20.2 ; Low back pain M54.5 ; Restless leg syndrome G25.81 ; Osteoarthritis of spine with radiculopathy, cervical region M47.22 and Dizziness R42 [facility] [address] [address] Jul, [facility] [address] [address] Jul, [facility] [address], [place] [address] Jul, Essential hypertension I10 ; Paresthesia of both hands R20.2 ; Upper respiratory tract infection, unspecified type J06.9 and Low back pain M54.5 [facility] [address] [address] Jul, [facility] [address], [place] [address] Jul, [facility] [address] [place] [address] Jul, Renal insufficiency N28.9 ; Vitamin D deficiency E55.9 ; Type 2 diabetes mellitus without complication, without long-term current use of insulin E11.9 ; Restless leg syndrome G25.81 ; Type 2 diabetes mellitus with diabetic chronic kidney disease E11.22 and Chronic kidney disease, stage 1 N18.1 [facility] [address] [address] Jul, Renal insufficiency N28.9 [facility] [address] [address] Jun, [facility] [address] [address] Jun, Renal insufficiency N28.9 ; Vitamin D deficiency E55.9 ; Type 2 diabetes mellitus without complication, without long-term current use of insulin E11.9 ; Restless leg syndrome G25.81 ; Type 2 diabetes mellitus with diabetic chronic kidney disease E11.22 and Chronic kidney disease, stage 1 N18.1 [facility] [address] [address] Jun, [facility] [address], [place] [address] May, [facility] [address] [address] May, [facility] [id number] [address] May, [facility] [address], [place] [address] May, [facility] [address] [address] May, [facility] [address], [place] [address] Apr, Acquired hypothyroidism E03.9 ; Essential hypertension I10 ; Type 2 diabetes mellitus without complication, without long-term current use of insulin E11.9 and Mixed hyperlipidemia E78.2 [facility] [address] [place] [address] Apr, Type 2 diabetes mellitus without complication, without long-term current use of insulin E11.9 ; Coronary artery disease involving [place] coronary artery of [place] heart without angina pectoris I25.10 ; Essential hypertension I10 and Acquired hypothyroidism E03.9 [facility] [id number] [place] [address] Apr, Cellulitis of left lower extremity L03.116 [place] [id number] [place] [address] Apr, Essential hypertension I10 ; Mixed hyperlipidemia E78.2 ; Type 2 diabetes mellitus without complication, without long-term current use of insulin E11.9 ; Acquired hypothyroidism E03.9 ; Cellulitis of left lower extremity L03.116 and Coronary artery disease involving [place] coronary artery of [place] heart without angina pectoris I25.10 [place] [address] [place] [address] Apr, [facility] [address], [place] [address] Dec, Dermatitis L30.9 [facility] [id number] [place] [address] Aug, [facility] [address] [place] [address] Aug, [facility] [id number] [place] [address] Jan, [facility] [address], [place] [address] Jan, [facility] [address], [place] [address] Jun, [facility] [id number] [address] May, [facility] [address], [place] [address] May, [facility] [address], [place] [address] May, [facility] [address], [place] [address] Apr, [facility] [address], [place] [address] Feb, [facility] [address], [place] [address] Feb, [facility] [address], [place] [address] Nov, [facility] [address], [place] [address] Nov, [facility] [address] [address] Nov, [facility] [id number] [address] Nov, [facility] [id number] [address] Nov, [facility] [id number] [address] Nov, [facility] [id number] [address] Nov, IMMUNIZATIONS No Known Immunizations SOCIAL HISTORY Never Assessed REASON FOR VISIT [place] [place] VITAL SIGNS MEDICATIONS Unknown [...]
--- OUTSIDE RECORDS SUMMARY | 2018-10-08 06:53 | XMS REPORT ---
Author Author Migration, Doctor Organization [facility] Address Unknown Phone Unavailable Care Team Providers Care Shift Supervisor Name Role Phone Migration, Doctor Unavailable Unavailable PROBLEMS Type Condition ICD9-CM Code UPY36-VF Code Onset Dates Condition Status SNOMED Code Problem Vitamin D deficiency E55.9 Active 00219799 Problem Renal insufficiency N28.9 Active [id number] Problem Coronary artery disease involving [place] coronary artery of [place] heart without angina pectoris I25.10 Active [id number] Problem Type 2 diabetes mellitus without complication, without long-term current use of insulin E11.9 Active 359252160 Problem Mixed hyperlipidemia E78.2 Active 084446360 Problem Essential hypertension I10 Active 80403453 Problem Type 2 diabetes mellitus with diabetic chronic kidney disease E11.22 Active 96628672 Problem Chronic kidney disease, stage 1 N18.1 Active 819775335 Problem Low back pain M54.5 Active 160560736 Problem Seasonal allergies J30.2 Active 183766412 Problem Restless leg syndrome G25.81 Active 06825083 Problem Grief F43.21 Active 648337344 Problem Acquired hypothyroidism E03.9 Active 561682947 Problem Osteoarthritis of spine with radiculopathy, cervical region M47.22 Active 541516584 Problem Bilateral carotid artery disease I77.9 Active 310539158 Problem Hypercalcemia E83.52 Active 70932365 Problem Mixed incontinence N39.46 Active [id number] ALLERGIES No Information ENCOUNTERS Encounter Location Date Diagnosis [facility] [address] [facility] [id number] [address] September, [facility] [id number] [place] [address] Aug, Grief F43.21 ; Coronary artery disease involving [place] coronary artery of [place] heart without angina pectoris I25.10 and Lipoma of right upper extremity D17.21 [facility] [address] [id number] [address] Jul, Mixed hyperlipidemia E78.2 and Acquired hypothyroidism E03.9 [facility] [address] [address] Jul, [facility] [address] [address] Jul, Acute anterior epistaxis R04.0 [facility] [address] [address] Jun, Low back pain M54.5 and Coronary artery disease involving [place] coronary artery of [place] heart without angina pectoris I25.10 [place] [address] [address] 14 Jun, 2018 Essential hypertension I10 [place] [address] [address] 04 Jun, 2018 Low back pain M54.5 [place] [address] [address] Jun, [facility] [address] [address] May, Seasonal allergies J30.2 [place] [address] [address] May, Low back pain M54.5 [place] [address] [address] May, Mixed hyperlipidemia E78.2 ; Vertigo R42 ; Essential hypertension I10 ; Coronary artery disease involving [place] coronary artery of [place] heart without angina pectoris I25.10 and Mixed incontinence N39.46 [place] [address] [address] Apr, Contusion of face, initial encounter S00.83XA ; Low back pain M54.5 and Strain of left shoulder, initial encounter S46.912A [place] [address] [address] Apr, [facility] [id number] [place] [address] Mar, [facility] [id number] [place] [address] Mar, [facility] [id number] [place] [address] Mar, Low back pain M54.5 ; Acquired hypothyroidism E03.9 ; Coronary artery disease involving [place] coronary artery of [place] heart without angina pectoris I25.10 ; Mixed hyperlipidemia E78.2 and Vertigo R42 [facility] [id number] [place] [address] Mar, [facility] [id number] [place] [address] Feb, Vertigo R42 [facility] [id number] [place] [address] Feb, [facility] [id number] [place] [address] Feb, Low back pain M54.5 [facility] [id number] [place] [address] Feb, Essential hypertension I10 ; Mixed hyperlipidemia E78.2 ; Coronary artery disease involving [place] coronary artery of [place] heart without angina pectoris I25.10 ; Screening for breast cancer Z12.31 and Mixed incontinence N39.46 [facility] [id number] [place] [address] Jan, [facility] [id number] [place] [address] Jan, Coronary artery disease involving [place] coronary artery of [place] heart without angina pectoris I25.10 [facility] [id number] [place] [address] Jan, Low back pain M54.5 and Coronary artery disease involving [place] coronary artery of [place] heart without angina pectoris I25.10 [facility] [id number] [place] [address] Dec, Acquired hypothyroidism E03.9 and Vertigo R42 [place] [address] [address] Dec, Low back pain M54.5 and Dermatitis L30.9 [place] [address] [address] Nov, Coronary artery disease involving [place] coronary artery of [place] heart without angina pectoris I25.10 [place] [address] [address] Nov, Acquired hypothyroidism E03.9 and Vertigo R42 [place] [address] [address] Nov, Encounter for well woman exam Z01.419 ; Screening for osteoporosis Z13.820 and Screening for colon cancer Z12.11 [place] [address] [address] Oct, Coronary artery disease involving [place] coronary artery of [place] heart without angina pectoris I25.10 [place] [id number] [place] [address] September, [place] [address] [address] September, [place] [address] [address] Aug, Type 2 diabetes mellitus without complication, without long-term current use of insulin E11.9 ; Essential hypertension I10 ; Acquired hypothyroidism E03.9 and Low back pain M54.5 [place] [address] [address] Aug, [place] [address] [address] Aug, [place] [id number] [place] [address] Jul, [facility] [id number] [place] [address] Jul, Coronary artery disease involving [place] coronary artery of [place] heart without angina pectoris I25.10 [facility] [id number] [place] [address] Jun, Low back pain M54.5 and Essential hypertension I10 [facility] [id number] [place] [address] Jun, Head cold J00 [facility] [address] [address] May, [facility] [id number] [place] [address] Apr, Type 2 diabetes mellitus without complication, without long-term current use of insulin E11.9 [facility] [id number] [place] [address] Apr, Type 2 diabetes mellitus without complication, without long-term current use of insulin E11.9 [facility] [id number] [place] [address] Apr, Essential hypertension I10 [facility] [id number] [place] [address] Mar, [facility] [id number] [place] [address] Mar, [facility] [id number] [place] [address] Mar, Osteoarthritis of spine with radiculopathy, cervical region M47.22 [facility] [id number] [place] [address] Mar, [facility] [id number] [place] [address] Feb, [place] [id number] [place] [address] Feb, Screening breast examination Z12.31 ; Bilateral carotid artery disease I77.9 ; Low back pain M54.5 ; Osteoarthritis of spine with radiculopathy, cervical region M47.22 ; Renal insufficiency N28.9 ; Vitamin D deficiency E55.9 ; Restless leg syndrome G25.81 ; Acquired hypothyroidism E03.9 ; Coronary artery disease involving [place] coronary artery of [place] heart without angina pectoris I25.10 ; Vertigo R42 ; Essential hypertension I10 ; Type 2 diabetes mellitus with diabetic chronic kidney disease E11.22 and Encounter for immunization Z23 [place] [id number] [place] [address] Jan, [place] [id number] [place] [address] Jan, Type 2 diabetes mellitus without complication, without long-term current use of insulin E11.9 ; Low back pain M54.5 ; Osteoarthritis of spine with radiculopathy, cervical region M47.22 ; Renal insufficiency N28.9 ; Vitamin D deficiency E55.9 ; Restless leg syndrome G25.81 ; Bilateral carotid artery disease I77.9 ; Acquired hypothyroidism E03.9 ; Coronary artery disease involving [place] coronary artery of [place] heart without angina pectoris I25.10 and Lipoma of back D17.1 [place] [id number] [place] [address] Jan, Type 2 diabetes mellitus without complication, without long-term current use of insulin E11.9 [place] [id number] [place] [address] Dec, Osteoarthritis of spine with radiculopathy, cervical region M47.22 [place] [id number] [place] [address] Nov, [place] [id number] [place] [address] Nov, Low back pain M54.5 and Osteoarthritis of spine with radiculopathy, cervical region M47.22 [place] [id number] [place] [address] Nov, Osteoarthritis of spine with radiculopathy, cervical [...] hypothyroidism E03.9 ; Coronary artery disease involving [place] coronary artery of [place] heart without angina pectoris I25.10 ; Hypercalcemia E83.52 and Left foot pain M79.672 [place] [id number] [place] [address] Oct, [place] [address] [address] Oct, Osteoarthritis of spine with radiculopathy, cervical region M47.22 [place] [id number] [place] [address] Oct, Abnormal blood chemistry R79.9 [place] [address] [id number] [place] [address] September, Osteoarthritis of spine with radiculopathy, cervical region M47.22 ; Essential hypertension I10 ; Renal insufficiency N28.9 ; Type 2 diabetes mellitus without complication, without long-term current use of insulin E11.9 ; Vitamin D deficiency E55.9 ; Paresthesia of both hands R20.2 ; Low back pain M54.5 ; Restless leg syndrome G25.81 and Dizziness R42 [place] [address] [id number] [place] [address] September, [place] [id number] [place] [address] September, [place] [address] [place] [address] September, [facility] [id number] [address] September, [facility] [id number] [address] Aug, [facility] [id number] [place] [address] Aug, [facility] [id number] [place] [address] Aug, [facility] [id number] [place] [address] Aug, [facility] [id number] [place] [address] Aug, Osteoarthritis of spine with radiculopathy, cervical region M47.22 [place] [id number] [address] Aug, Essential hypertension I10 ; Renal insufficiency N28.9 ; Type 2 diabetes mellitus without complication, without long-term current use of insulin E11.9 ; Vitamin D deficiency E55.9 ; Paresthesia of both hands R20.2 ; Low back pain M54.5 ; Restless leg syndrome G25.81 ; Osteoarthritis of spine with radiculopathy, cervical region M47.22 and Dizziness R42 [facility] [id number] [address] Jul, [facility] [id number] [address] Jul, [facility] [id number] [address] Jul, Essential hypertension I10 ; Paresthesia of both hands R20.2 ; Upper respiratory tract infection, unspecified type J06.9 and Low back pain M54.5 [facility] [id number] [address] Jul, [facility] [id number] [address] Jul, [facility] [id number] [place] [address] Jul, Renal insufficiency N28.9 ; Vitamin D deficiency E55.9 ; Type 2 diabetes mellitus without complication, without long-term current use of insulin E11.9 ; Restless leg syndrome G25.81 ; Type 2 diabetes mellitus with diabetic chronic kidney disease E11.22 and Chronic kidney disease, stage 1 N18.1 [facility] [id number] [address] Jul, Renal insufficiency N28.9 [facility] [id number] [address] Jun, [facility] [id number] [address] Jun, Renal insufficiency N28.9 ; Vitamin D deficiency E55.9 ; Type 2 diabetes mellitus without complication, without long-term current use of insulin E11.9 ; Restless leg syndrome G25.81 ; Type 2 diabetes mellitus with diabetic chronic kidney disease E11.22 and Chronic kidney disease, stage 1 N18.1 [facility] [id number], [place] [address] Jun, [facility] [id number] [address] May, [facility] [id number] [address] May, [facility] [id number] [address] May, [facility] [id number] [address] May, [facility] [id number], [place] [address] May, [facility] [id number], [place] [address] Apr, Acquired hypothyroidism E03.9 ; Essential hypertension I10 ; Type 2 diabetes mellitus without complication, without long-term current use of insulin E11.9 and Mixed hyperlipidemia E78.2 [facility] [id number] [place] [address] Apr, Type 2 diabetes mellitus without complication, without long-term current use of insulin E11.9 ; Coronary artery disease involving [place] coronary artery of [place] heart without angina pectoris I25.10 ; Essential hypertension I10 and Acquired hypothyroidism E03.9 [facility] [id number] [place] [address] Apr, Cellulitis of left lower extremity L03.116 [place] [id number] [place] [address] Apr, Essential hypertension I10 ; Mixed hyperlipidemia E78.2 ; Type 2 diabetes mellitus without complication, without long-term current use of insulin E11.9 ; Acquired hypothyroidism E03.9 ; Cellulitis of left lower extremity L03.116 and Coronary artery disease involving [place] coronary artery of [place] heart without angina pectoris I25.10 [place] [id number] [place] [address] Apr, [facility] [id number] [address] Dec, Dermatitis L30.9 [facility] [id number] [place] [address] Aug, [facility] [id number] [place] [address] Aug, [facility] [id number] [place] [address] Jan, [facility] [id number] [address] Jan, [facility] [id number], [place] [address] Jun, [facility] [id number], [place] [address] May, [facility] [id number] [address] May, [facility] [id number], [place] [address] May, [facility] [id number], [place] [address] Apr, [facility] [id number], [place] [address] Feb, [facility] [id number], [place] [address] Feb, [facility] [id number], [place] [address] Nov, [facility] [id number], [place] [address] Nov, [facility] [id number] [address] Nov, [facility] [id number], [place] [address] Nov, [facility] [id number], [place] [address] Nov, [facility] [id number] [address] Nov, [facility] [id number], [place] [address] Nov, IMMUNIZATIONS No Known Immunizations SOCIAL HISTORY Never Assessed REASON FOR VISIT EMR-[facility] [place] PLAN OF CARE VITAL SIGNS MEDICATIONS Unknown [...]
--- OUTSIDE RECORDS SUMMARY | 2018-10-08 06:53 | XMS REPORT ---
Author Author Migration, Doctor Organization [facility] Address Unknown Phone Unavailable Care Team Providers Care Client Professional Name Role Phone Migration, Doctor Unavailable Unavailable PROBLEMS Type Condition ICD9-CM Code DZR12-MU Code Onset Dates Condition Status SNOMED Code Problem Renal insufficiency N28.9 Active 134179190 Problem Type 2 diabetes mellitus without complication, without long-term current use of insulin E11.9 Active 516342945 Problem Vitamin D deficiency E55.9 Active 73005705 Problem Essential hypertension I10 Active 66777365 Problem Coronary artery disease involving northern [place] coronary artery of [place] heart without angina pectoris I25.10 Active 9203316369121 Problem Restless leg syndrome G25.81 Active 61980877 Problem Type 2 diabetes mellitus with diabetic chronic kidney disease E11.22 Active 48903193 Problem Chronic kidney disease, stage 1 N18.1 Active 739787076 Problem Mixed incontinence N39.46 Active 828664720 Problem Acquired hypothyroidism E03.9 Active 734674995 Problem Seasonal allergies J30.2 Active 260791675 Problem Mixed hyperlipidemia E78.2 Active 859598264 Problem Low back pain M54.5 Active 432788946 Problem Osteoarthritis of spine with radiculopathy, cervical region M47.22 Active 021314113 Problem Bilateral carotid artery disease I77.9 Active 123165840 Problem Hypercalcemia E83.52 Active 76693392 ALLERGIES No Information ENCOUNTERS Encounter Location Date Diagnosis [facility] [id number] [address] Aug, [facility] [address] [address] Jul, Mixed hyperlipidemia E78.2 and Acquired hypothyroidism E03.9 [facility] [id number] [address] 08 Jul, 2018 [facility] [address] [address] Jul, Acute anterior epistaxis R04.0 [facility] [address] [address] 27 Jun, 2018 Low back pain M54.5 and Coronary artery disease involving northern [place] coronary artery of [place] heart without angina pectoris I25.10 [facility] [id number] [place] [address] 14 Jun, 2018 Essential hypertension I10 [facility] [id number] [place] [address] Jun, Low back pain M54.5 [facility] [id number] [place] [address] Jun, [facility] [id number] [place] [address] May, Seasonal allergies J30.2 [facility] [id number] [place] [address] May, Low back pain M54.5 [facility] [id number] [place] [address] May, Mixed hyperlipidemia E78.2 ; Vertigo R42 ; Essential hypertension I10 ; Coronary artery disease involving northern [place] coronary artery of [place] heart without angina pectoris I25.10 and Mixed incontinence N39.46 [facility] [id number] [place] [address] Apr, Contusion of face, initial encounter S00.83XA ; Low back pain M54.5 and Strain of left shoulder, initial encounter S46.912A [facility] [id number] [place] [address] Apr, [facility] [id number] [place] [address] Mar, [facility] [id number] [place] [phone] Mar, [facility] [id number] [place] [address] Mar, Low back pain M54.5 ; Acquired hypothyroidism E03.9 ; Coronary artery disease involving northern [place] coronary artery of northern [place] heart without angina pectoris I25.10 ; Mixed hyperlipidemia E78.2 and Vertigo R42 [facility] [id number] [place] [address] Mar, [facility] [address] [address] Feb, Vertigo R42 [facility] [address] [address] Feb, [address] [address] Feb, Low back pain M54.5 [facility] [facility] [id number] [place] [phone] Feb, Essential hypertension I10 ; Mixed hyperlipidemia E78.2 ; Coronary artery disease involving northern [place] coronary artery of northern [place] heart without angina pectoris I25.10 ; Screening for breast cancer Z12.31 and Mixed incontinence N39.46 [facility] [facility] [id number] [place] [address] Jan, [facility] [facility] [id number] [place] [address] Jan, Coronary artery disease involving northern [place] coronary artery of northern [place] heart without angina pectoris I25.10 [facility] [id number] [place] [address] Jan, Low back pain M54.5 and Coronary artery disease involving northern [place] coronary artery of northern [place] heart without angina pectoris I25.10 [facility] [facility] [id number] [place] [address] Dec, Acquired hypothyroidism E03.9 and Vertigo R42 [facility] [id number] [place] [address] Dec, Low back pain M54.5 and Dermatitis L30.9 [facility] [facility] [id number] [place] [address] Nov, Coronary artery disease involving northern [place] coronary artery of northern [place] heart without angina pectoris I25.10 [facility] [id number] [place] [address] Nov, Acquired hypothyroidism E03.9 and Vertigo R42 [id number] [place] [address] Nov, Encounter for well woman exam Z01.419 ; Screening for osteoporosis Z13.820 and Screening for colon cancer Z12.[address] [address] Oct, Coronary artery disease involving northern [place] coronary artery of northern [place] heart without angina pectoris I25.[address] [address] September, [place] [id number] [place] [address] September, [facility] [facility] [id number] [place] [address] Aug, Type 2 diabetes mellitus without complication, without long-term current use of insulin E11.9 ; Essential hypertension I10 ; Acquired hypothyroidism E03.9 and Low back pain M54.5 [facility] [facility] [id number] [place] [address] Aug, [place] [facility] [id number] [place] [address] Aug, [address] [address] [address] Jul, [place] [id number] [place] [address] Jul, Coronary artery disease involving northern [place] coronary artery of northern [place] heart without angina pectoris I25.10 [facility] [facility] [id number] [place] [address] Jun, Low back pain M54.5 and Essential hypertension I10 [address] [facility] [id number] [place] [address] Jun, Head cold J00 [address] [id number] [place] [address] May, [place] [facility] [id number] [place] [address] Apr, Type 2 diabetes mellitus without complication, without long-term current use of insulin E11.9 [facility] [facility] [id number] [place] [address] Apr, Type 2 diabetes mellitus without complication, without long-term current use of insulin E11.9 [facility] [facility] [id number] [place] [address] Apr, Essential hypertension I10 [place] [facility] [id number] [place] [address] Mar, [place] [id number] [place] [address] Mar, [place] [facility] [id number] [place] [address] Mar, Osteoarthritis of spine with radiculopathy, cervical region M47.22 [address] [id number] [place] [address] Mar, [facility] [facility] [id number] [place] [address] Feb, [place] [facility] [id number] [place] [address] Feb, Screening breast examination Z12.31 ; Bilateral carotid artery disease I77.9 ; Low back pain M54.5 ; Osteoarthritis of spine with radiculopathy, cervical region M47.22 ; Renal insufficiency N28.9 ; Vitamin D deficiency E55.9 ; Restless leg syndrome G25.81 ; Acquired hypothyroidism E03.9 ; Coronary artery disease involving northern [place] coronary artery of northern [place] heart without angina pectoris I25.10 ; Vertigo R42 ; Essential hypertension I10 ; Type 2 diabetes mellitus with diabetic chronic kidney disease E11.22 and Encounter for immunization Z23 [address] [address] [address] [address] Jan, [address] [id number] [place] [address] Jan, Type 2 diabetes mellitus without complication, without long-term current use of insulin E11.9 ; Low back pain M54.5 ; Osteoarthritis of spine with radiculopathy, cervical region M47.22 ; Renal insufficiency N28.9 ; Vitamin D deficiency E55.9 ; Restless leg syndrome G25.81 ; Bilateral carotid artery disease I77.9 ; Acquired hypothyroidism E03.9 ; Coronary artery disease involving [place] coronary artery of northern [place] heart without angina pectoris I25.10 and Lipoma of back D17.1 [address] [id number] [place] [address] Jan, Type 2 diabetes mellitus without complication, without long-term current use of insulin E11.9 [address] [id number] [place] [address] Dec, Osteoarthritis of spine with radiculopathy, cervical region M47.22 [address] [id number] [place] [address] Nov, [address] [id number] [place] [address] Nov, Low back pain M54.5 and Osteoarthritis of spine with radiculopathy, cervical region M47.22 [address] [facility] [id number] [place] [address] Nov, Osteoarthritis of spine with radiculopathy, cervical [...] hypothyroidism E03.9 ; Coronary artery disease involving [place] coronary artery of [place] heart without angina pectoris I25.10 ; Hypercalcemia E83.52 and Left foot pain M79.672 [address] [id number] [place] [address] Oct, [address] [id number] [place] [address] Oct, Osteoarthritis of spine with radiculopathy, cervical region M47.22 [address] [id number] [place] [address] Oct, Abnormal blood chemistry R79.9 [address] [facility] [id number] [place] [address] September, Osteoarthritis of spine with radiculopathy, cervical region M47.22 ; Essential hypertension I10 ; Renal insufficiency N28.9 ; Type 2 diabetes mellitus without complication, without long-term current use of insulin E11.9 ; Vitamin D deficiency E55.9 ; Paresthesia of both hands R20.2 ; Low back pain M54.5 ; Restless leg syndrome G25.81 and Dizziness R42 [address] [id number] [place] [address] September, [address] [id number] [place] [address] September, [address] [id number] [place] [address] September, [address] [id number] [place] [address] September, [address] [id number] [place] [address] Aug, [facility] [address] [address] Aug, [facility] [id number] [place] [address] Aug, [facility] [id number] [place] [address] Aug, [facility] [id number] [place] [address] Aug, Osteoarthritis of spine with radiculopathy, cervical region M47.22 [address] [id number] [place] [address] Aug, Essential hypertension I10 ; Renal insufficiency N28.9 ; Type 2 diabetes mellitus without complication, without long-term current use of insulin E11.9 ; Vitamin D deficiency E55.9 ; Paresthesia of both hands R20.2 ; Low back pain M54.5 ; Restless leg syndrome G25.81 ; Osteoarthritis of spine with radiculopathy, cervical region M47.22 and Dizziness R42 [address] [place] [id number] [place] [address] Jul, [facility] [id number] [place] [address] Jul, [facility] [id number] [place] [address] Jul, Essential hypertension I10 ; Paresthesia of both hands R20.2 ; Upper respiratory tract infection, unspecified type J06.9 and Low back pain M54.5 [facility] [address] [address] 15 Jul, 2016 [facility] [id number] [place] [address] Jul, [facility] [id number] [place] [address] Jul, Renal insufficiency N28.9 ; Vitamin D deficiency E55.9 ; Type 2 diabetes mellitus without complication, without long-term current use of insulin E11.9 ; Restless leg syndrome G25.81 ; Type 2 diabetes mellitus with diabetic chronic kidney disease E11.22 and Chronic kidney disease, stage 1 N18.1 [facility] [address] [address] Jul, Renal insufficiency N28.9 [facility] [id number] [place] [address] Jun, [facility] [id number] [place] [address] Jun, Renal insufficiency N28.9 ; Vitamin D deficiency E55.9 ; Type 2 diabetes mellitus without complication, without long-term current use of insulin E11.9 ; Restless leg syndrome G25.81 ; Type 2 diabetes mellitus with diabetic chronic kidney disease E11.22 and Chronic kidney disease, stage 1 N18.1 [facility] [id number] [address] Jun, [facility] [id number] [address] May, [address] [id number] [place] [address] May, [address] [address] May, [facility] [address] [address] May, [facility] [address] [address] May, [facility] [id number] [place] [address] Apr, Acquired hypothyroidism E03.9 ; Essential hypertension I10 ; Type 2 diabetes mellitus without complication, without long-term current use of insulin E11.9 and Mixed hyperlipidemia E78.2 [facility] [address] [address] 28 Apr, 2016 Type 2 diabetes mellitus without complication, without long-term current use of insulin E11.9 ; Coronary artery disease involving [place] coronary artery of northern [place] heart without angina pectoris I25.10 ; Essential hypertension I10 and Acquired hypothyroidism E03.9 [facility] [address] [address] Apr, Cellulitis of left lower extremity L03.116 [facility] [id number] [place] [address] 20 Apr, 2016 Essential hypertension I10 ; Mixed hyperlipidemia E78.2 ; Type 2 diabetes mellitus without complication, without long-term current use of insulin E11.9 ; Acquired hypothyroidism E03.9 ; Cellulitis of left lower extremity L03.116 and Coronary artery disease involving [place] coronary artery of [place] heart without angina pectoris I25.10 [facility] [id number] [place] [address] 14 Apr, 2016 [facility] [id number] [place] [address] Dec, Dermatitis L30.9 [facility] [id number] [place] [address] 14 Aug, 2014 [facility] [address] [address] Aug, [facility] [id number] [place] [address] Jan, [facility] [id number] [place] [address] Jan, [facility] [id number] [place] [address] Jun, [facility] [id number] [place] [address] May, [facility] [id number] [place] [address] May, [facility] [id number] [address] May, [facility] [address] [address] Apr, [facility] [id number] [address] Feb, [facility] [address] [address] Feb, [facility] [id number] [address] Nov, [facility] [address] [address] Nov, [facility] [address] [address] Nov, [facility] [address] [address] Nov, [facility] [id number] [address] Nov, [facility] [id number] [address] Nov, [facility] [id number] [address] Nov, IMMUNIZATIONS No Known Immunizations SOCIAL HISTORY Never Assessed REASON FOR VISIT [facility] [place] PLAN OF CARE VITAL SIGNS MEDICATIONS Medication Instructions Dosage Frequency Start Date End Date Duration Status metformin 500 mg Nov, Active Potassium Chloride by Oral route Nov, Active Trilipix by Oral route Nov, Active Bactrim DS 800-160 mg take 1 tablet by oral route every 12 hours for 7 day(s) May, Active Isosorbide Mononitrate by Oral route Nov, Active Crestor by Oral route Nov, Active Aspir-81 by Oral route Nov, Active Atenolol 50 mg take 1 tablet (50 mg) by oral route once daily Nov, Active RESULTS No Results PROCEDURES No Known [...]
--- OUTSIDE RECORDS SUMMARY | 2018-10-08 06:53 | XMS REPORT ---
Author Author Migration, Doctor Organization [facility] Address Unknown Phone Unavailable Care Team Providers Care Stabilizer Operator Name Role Phone Migration, Doctor Unavailable Unavailable PROBLEMS Type Condition ICD9-CM Code CVO63-HX Code Onset Dates Condition Status SNOMED Code Problem Vitamin D deficiency E55.9 Active 42415716 Problem Renal insufficiency N28.9 Active 275470777 Problem Coronary artery disease involving [place] coronary artery of [place] heart without angina pectoris I25.10 Active 5475117745157 Problem Type 2 diabetes mellitus without complication, without long-term current use of insulin E11.9 Active 548261502 Problem Mixed hyperlipidemia E78.2 Active 319206058 Problem Essential hypertension I10 Active 30249719 Problem Type 2 diabetes mellitus with diabetic chronic kidney disease E11.22 Active 25643119 Problem Chronic kidney disease, stage 1 N18.1 Active 565276894 Problem Low back pain M54.5 Active 076877079 Problem Seasonal allergies J30.2 Active 197827151 Problem Restless leg syndrome G25.81 Active 29883773 Problem Grief F43.21 Active 999884674 Problem Acquired hypothyroidism E03.9 Active 519233779 Problem Osteoarthritis of spine with radiculopathy, cervical region M47.22 Active 367716636 Problem Bilateral carotid artery disease I77.9 Active 310051382 Problem Hypercalcemia E83.52 Active 24575781 Problem Mixed incontinence N39.46 Active [id number] ALLERGIES No Information ENCOUNTERS Encounter Location Date Diagnosis [facility] [address] [facility] [id number] [address] September, [facility] [id number] [place] [address] Aug, Grief F43.21 ; Coronary artery disease involving [place] coronary artery of [place] heart without angina pectoris I25.10 and Lipoma of right upper extremity D17.21 [facility] [address] [id number] [address] Jul, Mixed hyperlipidemia E78.2 and Acquired hypothyroidism E03.9 [facility] [address] [address] Jul, [facility] [address] [address] Jul, Acute anterior epistaxis R04.0 [facility] [address] [address] Jun, Low back pain M54.5 and Coronary artery disease involving [place] coronary artery of [place] heart without angina pectoris I25.10 [place] [address] [address] 14 Jun, 2018 Essential hypertension I10 [place] [address] [address] 04 Jun, 2018 Low back pain M54.5 [place] [address] [address] Jun, [facility] [address] [address] May, Seasonal allergies J30.2 [place] [address] [address] May, Low back pain M54.5 [place] [address] [address] May, Mixed hyperlipidemia E78.2 ; Vertigo R42 ; Essential hypertension I10 ; Coronary artery disease involving [place] coronary artery of [place] heart without angina pectoris I25.10 and Mixed incontinence N39.46 [place] [address] [address] Apr, Contusion of face, initial encounter S00.83XA ; Low back pain M54.5 and Strain of left shoulder, initial encounter S46.912A [place] [address] [address] Apr, [facility] [id number] [place] [address] Mar, [facility] [id number] [place] [address] Mar, [facility] [id number] [place] [address] Mar, Low back pain M54.5 ; Acquired hypothyroidism E03.9 ; Coronary artery disease involving [place] coronary artery of [place] heart without angina pectoris I25.10 ; Mixed hyperlipidemia E78.2 and Vertigo R42 [facility] [id number] [place] [address] Mar, [facility] [id number] [place] [address] Feb, Vertigo R42 [facility] [id number] [place] [address] Feb, [facility] [id number] [place] [address] Feb, Low back pain M54.5 [facility] [id number] [place] [address] Feb, Essential hypertension I10 ; Mixed hyperlipidemia E78.2 ; Coronary artery disease involving [place] coronary artery of [place] heart without angina pectoris I25.10 ; Screening for breast cancer Z12.31 and Mixed incontinence N39.46 [facility] [id number] [place] [address] Jan, [facility] [id number] [place] [address] Jan, Coronary artery disease involving [place] coronary artery of [place] heart without angina pectoris I25.10 [facility] [id number] [place] [address] Jan, Low back pain M54.5 and Coronary artery disease involving [place] coronary artery of [place] heart without angina pectoris I25.10 [facility] [id number] [place] [address] Dec, Acquired hypothyroidism E03.9 and Vertigo R42 [place] [address] [address] Dec, Low back pain M54.5 and Dermatitis L30.9 [place] [address] [address] Nov, Coronary artery disease involving [place] coronary artery of pass[place] heart without angina pectoris I25.10 [place] [address] [address] Nov, Acquired hypothyroidism E03.9 and Vertigo R42 [place] [address] [address] Nov, Encounter for well woman exam Z01.419 ; Screening for osteoporosis Z13.820 and Screening for colon cancer Z12.11 [place] [address] [address] Oct, Coronary artery disease involving [place] coronary artery of [place] heart without angina pectoris I25.10 [place] [id number] [place] [address] September, [place] [address] [address] September, [place] [address] [address] Aug, Type 2 diabetes mellitus without complication, without long-term current use of insulin E11.9 ; Essential hypertension I10 ; Acquired hypothyroidism E03.9 and Low back pain M54.5 [place] [address] [address] Aug, [place] [address] [address] Aug, [place] [id number] [place] [address] Jul, [facility] [id number] [place] [address] Jul, Coronary artery disease involving [place] coronary artery of pass[place] heart without angina pectoris I25.10 [facility] [id number] [place] [address] Jun, Low back pain M54.5 and Essential hypertension I10 [facility] [id number] [place] [address] Jun, Head cold J00 [facility] [address] [address] May, [facility] [id number] [place] [address] Apr, Type 2 diabetes mellitus without complication, without long-term current use of insulin E11.9 [facility] [id number] [place] [address] Apr, Type 2 diabetes mellitus without complication, without long-term current use of insulin E11.9 [facility] [id number] [place] [address] Apr, Essential hypertension I10 [facility] [id number] [place] [address] Mar, [facility] [id number] [place] [address] Mar, [facility] [id number] [place] [address] Mar, Osteoarthritis of spine with radiculopathy, cervical region M47.22 [facility] [id number] [place] [address] Mar, [facility] [id number] [place] [address] Feb, [place] [id number] [place] [address] Feb, Screening breast examination Z12.31 ; Bilateral carotid artery disease I77.9 ; Low back pain M54.5 ; Osteoarthritis of spine with radiculopathy, cervical region M47.22 ; Renal insufficiency N28.9 ; Vitamin D deficiency E55.9 ; Restless leg syndrome G25.81 ; Acquired hypothyroidism E03.9 ; Coronary artery disease involving [place] coronary artery of pass[place]dy heart without angina pectoris I25.10 ; Vertigo R42 ; Essential hypertension I10 ; Type 2 diabetes mellitus with diabetic chronic kidney disease E11.22 and Encounter for immunization Z23 [place] [id number] [place] [address] Jan, [place] [id number] [place] [address] Jan, Type 2 diabetes mellitus without complication, without long-term current use of insulin E11.9 ; Low back pain M54.5 ; Osteoarthritis of spine with radiculopathy, cervical region M47.22 ; Renal insufficiency N28.9 ; Vitamin D deficiency E55.9 ; Restless leg syndrome G25.81 ; Bilateral carotid artery disease I77.9 ; Acquired hypothyroidism E03.9 ; Coronary artery disease involving [place] coronary artery of pass[place] heart without angina pectoris I25.10 and Lipoma of back D17.1 [place] [id number] [place] [address] Jan, Type 2 diabetes mellitus without complication, without long-term current use of insulin E11.9 [place] [id number] [place] [address] Dec, Osteoarthritis of spine with radiculopathy, cervical region M47.22 [place] [id number] [place] [address] Nov, [place] [id number] [place] [address] Nov, Low back pain M54.5 and Osteoarthritis of spine with radiculopathy, cervical region M47.22 [place] [id number] [place] [address] Nov, Osteoarthritis of spine with radiculopathy, cervical [...] hypothyroidism E03.9 ; Coronary artery disease involving [place] coronary artery of pass[place] heart without angina pectoris I25.10 ; Hypercalcemia E83.52 and Left foot pain M79.672 [place] [id number] [place] [address] Oct, [place] [address] [address] Oct, Osteoarthritis of spine with radiculopathy, cervical region M47.22 [place] [id number] [place] [address] Oct, Abnormal blood chemistry R79.9 [place] [id number] [place] [address] September, Osteoarthritis of spine with radiculopathy, cervical region M47.22 ; Essential hypertension I10 ; Renal insufficiency N28.9 ; Type 2 diabetes mellitus without complication, without long-term current use of insulin E11.9 ; Vitamin D deficiency E55.9 ; Paresthesia of both hands R20.2 ; Low back pain M54.5 ; Restless leg syndrome G25.81 and Dizziness R42 [place] [id number] [place] [address] September, [place] [id number] [place] [address] September, [place] [address] [place] [address] September, [facility] [address] [address] September, [facility] [address] [address] Aug, [facility] [id number] [place] [address] Aug, [facility] [id number] [place] [address] Aug, [facility] [id number] [place] [address] Aug, [facility] [id number] [place] [address] Aug, Osteoarthritis of spine with radiculopathy, cervical region M47.22 [place] [address] [address] Aug, Essential hypertension I10 ; Renal insufficiency N28.9 ; Type 2 diabetes mellitus without complication, without long-term current use of insulin E11.9 ; Vitamin D deficiency E55.9 ; Paresthesia of both hands R20.2 ; Low back pain M54.5 ; Restless leg syndrome G25.81 ; Osteoarthritis of spine with radiculopathy, cervical region M47.22 and Dizziness R42 [facility] [address] [address] Jul, [facility] [address], [place] [address] Jul, [facility] [address], [place] [address] Jul, Essential hypertension I10 ; Paresthesia of both hands R20.2 ; Upper respiratory tract infection, unspecified type J06.9 and Low back pain M54.5 [facility] [address], [place] [address] Jul, [facility] [address] [address] Jul, [facility] [id number] [place] [address] Jul, Renal insufficiency N28.9 ; Vitamin D deficiency E55.9 ; Type 2 diabetes mellitus without complication, without long-term current use of insulin E11.9 ; Restless leg syndrome G25.81 ; Type 2 diabetes mellitus with diabetic chronic kidney disease E11.22 and Chronic kidney disease, stage 1 N18.1 [facility] [address] [address] Jul, Renal insufficiency N28.9 [facility] [address], [place] [address] Jun, [facility] [address] [address] Jun, Renal insufficiency N28.9 ; Vitamin D deficiency E55.9 ; Type 2 diabetes mellitus without complication, without long-term current use of insulin E11.9 ; Restless leg syndrome G25.81 ; Type 2 diabetes mellitus with diabetic chronic kidney disease E11.22 and Chronic kidney disease, stage 1 N18.1 [facility] [address] [address] Jun, [facility] [address] [address] May, [facility] [address] [address] May, [facility] [id number] [address] May, [facility] [address] [address] May, [facility] [address] [address] May, [facility] [address] [address] Apr, Acquired hypothyroidism E03.9 ; Essential hypertension I10 ; Type 2 diabetes mellitus without complication, without long-term current use of insulin E11.9 and Mixed hyperlipidemia E78.2 [facility] [id number] [place] [address] Apr, Type 2 diabetes mellitus without complication, without long-term current use of insulin E11.9 ; Coronary artery disease involving [place] coronary artery of pass[place]dy heart without angina pectoris I25.10 ; Essential hypertension I10 and Acquired hypothyroidism E03.9 [facility] [id number] [place] [address] Apr, Cellulitis of left lower extremity L03.116 [place] [id number] [place] [address] Apr, Essential hypertension I10 ; Mixed hyperlipidemia E78.2 ; Type 2 diabetes mellitus without complication, without long-term current use of insulin E11.9 ; Acquired hypothyroidism E03.9 ; Cellulitis of left lower extremity L03.116 and Coronary artery disease involving [place] coronary artery of [place] heart without angina pectoris I25.10 [place] [id number] [place] [address] Apr, [facility] [address] [address] Dec, Dermatitis L30.9 [facility] [id number] [place] [address] Aug, [facility] [id number] [place] [address] Aug, [facility] [id number] [place] [address] Jan, [facility] [address], [place] [address] Jan, [facility] [address], [place] [address] Jun, [facility] [id number] [address] May, [facility] [address], [place] [address] May, [facility] [address], [place] [address] May, [facility] [address] [address] Apr, [facility] [address], [place] [address] Feb, [facility] [address] [address] Feb, [facility] [address], [place] [address] Nov, [facility] [address] [address] Nov, [facility] [address] [address] Nov, [facility] [id number] [address] Nov, [facility] [id number] [address] Nov, [facility] [id number] [address] Nov, [facility] [id number] [address] Nov, IMMUNIZATIONS No Known Immunizations SOCIAL HISTORY Never Assessed REASON FOR VISIT EMR-[facility] PLAN OF CARE VITAL SIGNS MEDICATIONS Unknown [...]
--- OUTSIDE RECORDS SUMMARY | 2018-10-08 06:54 | XMS REPORT ---
Author Author Migration, Doctor Organization [facility] Address Unknown Phone Unavailable Care Team Providers Care Independent Sales Representative Name Role Phone Migration, Doctor Unavailable Unavailable PROBLEMS Type Condition ICD9-CM Code [id number] Code Onset Dates Condition Status SNOMED Code Problem Renal insufficiency N28.9 Active 665003557 Problem Type 2 diabetes mellitus without complication, without long-term current use of insulin E11.9 Active 090836499 Problem Vitamin D deficiency E55.9 Active 89404859 Problem Essential hypertension I10 Active 66713427 Problem Coronary artery disease involving [place] coronary artery of [place] heart without angina pectoris I25.10 Active 5346317446363 Problem Restless leg syndrome G25.81 Active 98245469 Problem Type 2 diabetes mellitus with diabetic chronic kidney disease E11.22 Active 80523049 Problem Chronic kidney disease, stage 1 N18.1 Active 703770621 Problem Mixed incontinence N39.46 Active 364966599 Problem Acquired hypothyroidism E03.9 Active 036699486 Problem Seasonal allergies J30.2 Active 974940718 Problem Mixed hyperlipidemia E78.2 Active 392546960 Problem Low back pain M54.5 Active 020817063 Problem Osteoarthritis of spine with radiculopathy, cervical region M47.22 Active 134555269 Problem Bilateral carotid artery disease I77.9 Active 836653093 Problem Hypercalcemia E83.52 Active 21366638 ALLERGIES No Information ENCOUNTERS Encounter Location Date Diagnosis [facility] [id number] [place] [phone] Aug, [facility] [address] [address] Jul, [facility] [id number] [address] Jul, Acute anterior epistaxis R04.0 [facility] [id number] [address] Jun, Low back pain M54.5 and Coronary artery disease involving [place] coronary artery of [place] heart without angina pectoris I25.10 [facility] [id number] [place] [address] 14 Jun, 2018 Essential hypertension I10 [facility] [id number] [place] [address] Jun, Low back pain M54.5 [facility] [address] [address] Jun, [facility] [address] [address] May, Seasonal allergies J30.2 [facility] [id number] [place] [address] May, Low back pain M54.5 [facility] [facility] [address] [address] May, Mixed hyperlipidemia E78.2 ; Vertigo R42 ; Essential hypertension I10 ; Coronary artery disease involving [place] coronary artery of [place] heart without angina pectoris I25.10 and Mixed incontinence N39.46 [facility] [id number] [place] [address] Apr, Contusion of face, initial encounter S00.83XA ; Low back pain M54.5 and Strain of left shoulder, initial encounter S46.912A [facility] [id number] [place] [address] Apr, [facility] [id number] [place] [address] Mar, [facility] [id number] [place] [address] Mar, [facility] [id number] [place] [address] Mar, Low back pain M54.5 ; Acquired hypothyroidism E03.9 ; Coronary artery disease involving [place] coronary artery of [place] heart without angina pectoris I25.10 ; Mixed hyperlipidemia E78.2 and Vertigo R42 [place] [address] [address] Mar, [facility] [address] [address] Feb, Vertigo R42 [place] [address] [address] Feb, [place] [address] [address] Feb, Low back pain M54.5 [place] [address] [address] Feb, Essential hypertension I10 ; Mixed hyperlipidemia E78.2 ; Coronary artery disease involving [place] coronary artery of [place] heart without angina pectoris I25.10 ; Screening for breast cancer Z12.31 and Mixed incontinence N39.46 [facility] [id number] [place] [address] Jan, [place] [address] [address] Jan, Coronary artery disease involving [place] coronary artery of [place] heart without angina pectoris I25.10 [place] [id number] [place] [address] Jan, Low back pain M54.5 and Coronary artery disease involving [place] coronary artery of [place] heart without angina pectoris I25.10 [place] [facility] [id number] [place] [address] Dec, Acquired hypothyroidism E03.9 and Vertigo R42 [place] [address] [address] Dec, Low back pain M54.5 and Dermatitis L30.9 [place] [address] [address] Nov, Coronary artery disease involving [place] coronary artery of [place] heart without angina pectoris I25.10 [facility] [id number] [place] [address] Nov, Acquired hypothyroidism E03.9 and Vertigo R42 [facility] [id number] [place] [address] Nov, Encounter for well woman exam Z01.419 ; Screening for osteoporosis Z13.820 and Screening for colon cancer Z12.11 [place] [facility] [id number] [place] [address] Oct, Coronary artery disease involving [place] coronary artery of [place] heart without angina pectoris I25.10 [place] [facility] [id number] [place] [address] September, [facility] [facility] [id number] [place] [address] September, [facility] [id number] [place] [address] Aug, Type 2 diabetes mellitus without complication, without long-term current use of insulin E11.9 ; Essential hypertension I10 ; Acquired hypothyroidism E03.9 and Low back pain M54.5 [facility] [facility] [id number] [place] [address] Aug, [facility] [facility] [id number] [place] [address] Aug, [facility] [id number] [place] [address] Jul, [facility] [id number] [place] [address] Jul, Coronary artery disease involving [place] coronary artery of [place] heart without angina pectoris I25.10 [facility] [address] [address] Jun, Low back pain M54.5 and Essential hypertension I10 [facility] [address] [address] Jun, Head cold J00 [facility] [id number] [place] [address] May, [facility] [facility] [id number] [place] [address] 14 Apr, 2017 Type 2 diabetes mellitus without complication, without long-term current use of insulin E11.9 [facility] [facility] [id number] [place] [address] Apr, Type 2 diabetes mellitus without complication, without long-term current use of insulin E11.9 [facility] [id number] [place] [address] Apr, Essential hypertension I10 [place] [id number] [place] [address] Mar, [facility] [facility] [id number] [place] [address] Mar, [facility] [id number] [place] [address] Mar, Osteoarthritis of spine with radiculopathy, cervical region M47.22 [facility] [facility] [id number] [place] [address] Mar, [facility] [facility] [id number] [place] [address] Feb, [place] [id number] [place] [address] Feb, Screening breast examination Z12.31 ; Bilateral carotid artery disease I77.9 ; Low back pain M54.5 ; Osteoarthritis of spine with radiculopathy, cervical region M47.22 ; Renal insufficiency N28.9 ; Vitamin D deficiency E55.9 ; Restless leg syndrome G25.81 ; Acquired hypothyroidism E03.9 ; Coronary artery disease involving [place] coronary artery of [place] heart without angina pectoris I25.10 ; Vertigo R42 ; Essential hypertension I10 ; Type 2 diabetes mellitus with diabetic chronic kidney disease E11.22 and Encounter for immunization Z23 [place] [id number] [place] [address] Jan, [place] [id number] [place] [address] Jan, Type 2 diabetes mellitus without complication, without long-term current use of insulin E11.9 ; Low back pain M54.5 ; Osteoarthritis of spine with radiculopathy, cervical region M47.22 ; Renal insufficiency N28.9 ; Vitamin D deficiency E55.9 ; Restless leg syndrome G25.81 ; Bilateral carotid artery disease I77.9 ; Acquired hypothyroidism E03.9 ; Coronary artery disease involving [place] coronary artery of [place] heart without angina pectoris I25.10 and Lipoma of back D17.1 [place] [id number] [place] [address] Jan, Type 2 diabetes mellitus without complication, without long-term current use of insulin E11.9 [place] [facility] [id number] [place] [address] Dec, Osteoarthritis of spine with radiculopathy, cervical region M47.22 [place] [id number] [place] [address] Nov, [place] [id number] [place] [address] Nov, Low back pain M54.5 and Osteoarthritis of spine with radiculopathy, cervical region M47.22 [place] [id number] [place] [address] Nov, Osteoarthritis of spine with radiculopathy, cervical [...] hypothyroidism E03.9 ; Coronary artery disease involving [place] coronary artery of [place] heart without angina pectoris I25.10 ; Hypercalcemia E83.52 and Left foot pain M79.672 [facility] [id number] [address] Oct, [place] [id number] [place] [address] Oct, Osteoarthritis of spine with radiculopathy, cervical region M47.22 [place] [id number] [place] [address] Oct, Abnormal blood chemistry R79.9 [place] [id number] [place] [address] September, Osteoarthritis of spine with radiculopathy, cervical region M47.22 ; Essential hypertension I10 ; Renal insufficiency N28.9 ; Type 2 diabetes mellitus without complication, without long-term current use of insulin E11.9 ; Vitamin D deficiency E55.9 ; Paresthesia of both hands R20.2 ; Low back pain M54.5 ; Restless leg syndrome G25.81 and Dizziness R42 [place] [id number] [place] [address] September, [place] [address] [address] September, [facility] [id number] [place] [address] September, [facility] [id number] [place] [address] September, [place] [id number] [place] [address] Aug, [facility] [id number] [place] [address] Aug, [place] [address] [address] Aug, [place] [id number] [place] [address] Aug, [place] [id number] [place] [address] Aug, Osteoarthritis of spine with radiculopathy, cervical region M47.22 [place] [id number] [place] [address] Aug, Essential hypertension I10 ; Renal insufficiency N28.9 ; Type 2 diabetes mellitus without complication, without long-term current use of insulin E11.9 ; Vitamin D deficiency E55.9 ; Paresthesia of both hands R20.2 ; Low back pain M54.5 ; Restless leg syndrome G25.81 ; Osteoarthritis of spine with radiculopathy, cervical region M47.22 and Dizziness R42 [place] [id number] [place] [address] Jul, [place] [id number] [place] [address] Jul, [place] [id number] [place] [address] Jul, Essential hypertension I10 ; Paresthesia of both hands R20.2 ; Upper respiratory tract infection, unspecified type J06.9 and Low back pain M54.5 [place] [address] [address] 15 Jul, 2016 [place] [address] [address] Jul, [place] [id number] [place] [address] 09 Jul, 2016 Renal insufficiency N28.9 ; Vitamin D deficiency E55.9 ; Type 2 diabetes mellitus without complication, without long-term current use of insulin E11.9 ; Restless leg syndrome G25.81 ; Type 2 diabetes mellitus with diabetic chronic kidney disease E11.22 and Chronic kidney disease, stage 1 N18.1 [facility] [address] [address] Jul, Renal insufficiency N28.9 [facility] [address] [address] Jun, [facility] [id number] [place] [address] Jun, Renal insufficiency N28.9 ; Vitamin D deficiency E55.9 ; Type 2 diabetes mellitus without complication, without long-term current use of insulin E11.9 ; Restless leg syndrome G25.81 ; Type 2 diabetes mellitus with diabetic chronic kidney disease E11.22 and Chronic kidney disease, stage 1 N18.1 [facility] [address] [address] Jun, [facility] [id number] [place] [address] May, [facility] [id number] [place] [address] May, [facility] [id number] [place] [address] May, [facility] [address] [address] May, [facility] [id number] [place] [address] May, [facility] [id number] [place] [address] Apr, Acquired hypothyroidism E03.9 ; Essential hypertension I10 ; Type 2 diabetes mellitus without complication, without long-term current use of insulin E11.9 and Mixed hyperlipidemia E78.2 [facility] [address] [address] Apr, Type 2 diabetes mellitus without complication, without long-term current use of insulin E11.9 ; Coronary artery disease involving [place] coronary artery of [place] heart without angina pectoris I25.10 ; Essential hypertension I10 and Acquired hypothyroidism E03.9 [facility] [id number] [place] [address] 21 Apr, 2016 Cellulitis of left lower extremity L03.116 [facility] [id number] [place] [address] 20 Apr, 2016 Essential hypertension I10 ; Mixed hyperlipidemia E78.2 ; Type 2 diabetes mellitus without complication, without long-term current use of insulin E11.9 ; Acquired hypothyroidism E03.9 ; Cellulitis of left lower extremity L03.116 and Coronary artery disease involving [place] coronary artery of [place] heart without angina pectoris I25.10 [facility] [id number] [place] [address] 14 Apr, 2016 [facility] [id number] [place] [address] Dec, Dermatitis L30.9 [facility] [id number] [place] [address] 14 Aug, 2014 [facility] [id number] [place] [address] Aug, [facility] [id number] [place] [address] Jan, [facility] [id number] [place] [address] Jan, [facility] [id number] [place] [address] Jun, [facility] [id number] [place] [address] May, [facility] [id number] [place] [address] May, [facility] [id number] [place] [address] May, [facility] [id number] [address] Apr, [facility] [address] [facility] [id number] [address] Feb, [facility] [address] [facility] [id number] [address] Feb, [facility] [address] [facility] [id number] [address] Nov, [facility] [address] [facility] [id number] [address] Nov, [facility] [address] [address] Nov, [facility] [address] [address] Nov, [facility] [address] [address] Nov, [facility] [id number] [address] Nov, [facility] [id number] [address] Nov, IMMUNIZATIONS No Known Immunizations SOCIAL HISTORY Never Assessed REASON FOR VISIT EMR-[facility] [place] PLAN OF CARE VITAL SIGNS MEDICATIONS Unknown [...]
--- OUTSIDE RECORDS SUMMARY | 2018-10-08 06:54 | XMS REPORT ---
Author Author JASIEL KENDRICK [facility] Address [address] [place] [address] Care Team Providers Care Derrick Boat Runner Name Role Phone JOANIE KENDRICKTA Unavailable PROBLEMS Type Condition ICD9-CM Code PJJ11-NC Code Onset Dates Condition Status SNOMED Code Problem Acquired hypothyroidism E03.9 Active 620379056 Problem Type 2 diabetes mellitus with diabetic chronic kidney disease E11.22 Active 37380566 Problem Restless leg syndrome G25.81 Active 49189438 Problem Mixed incontinence N39.46 Active 888036222 Problem Hypercalcemia E83.52 Active 03695815 Problem Low back pain M54.5 Active 857257810 Problem Chronic kidney disease, stage 1 N18.1 Active 742176923 Problem Bilateral carotid artery disease I77.9 Active 000565035 Problem Osteoarthritis of spine with radiculopathy, cervical region M47.22 Active 683348875 Problem 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 Active 2723454350044 Problem Essential hypertension I10 Active 22950554 Problem Renal insufficiency N28.9 Active 807419066 Problem Type 2 diabetes mellitus without complication, without long-term current use of insulin E11.9 Active 776900565 Problem Vitamin D deficiency E55.9 Active 72323097 Problem Mixed hyperlipidemia E78.2 Active [id number] ALLERGIES No Information ENCOUNTERS Encounter Location Date Diagnosis [facility] [place] [id number] [address] Apr, [facility] [place] [id number] [place] [phone] Apr, [facility] [place] [id number] [place] [address] Mar, [facility] [place] [id number] [place] [phone] Mar, [facility] [place] [id number] [place] [address] Mar, Low back pain M54.5 ; Acquired hypothyroidism E03.9 ; 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 ; Mixed hyperlipidemia E78.2 and Vertigo R42 [facility] [place] [id number] [place] [phone] Mar, [facility] [place] [id number] [place] [address] Feb, Vertigo R42 [facility] [place] [address] [address] Feb, [facility] [place] [id number] [place] [address] Feb, Low back pain M54.5 [facility] [place] [address] [address] Feb, Essential hypertension I10 ; Mixed hyperlipidemia E78.2 ; 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 ; Screening for breast cancer Z12.31 and Mixed incontinence N39.46 [facility] [place] [id number] [place] [address] Jan, [facility] [place] [id number] [place] [phone] Jan, 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 [facility] [place] [id number] [place] [phone] Jan, Low back pain M54.5 and 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 [facility] [place] [id number] [place] [phone] Dec, Acquired hypothyroidism E03.9 and Vertigo R42 [facility] [place] [id number] [place] [phone] Dec, Low back pain M54.5 and Dermatitis L30.9 [facility] [id number] [place] [address] Nov, 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 [facility] [id number] [place] [phone] Nov, Acquired hypothyroidism E03.9 and Vertigo R42 [facility] [id number] [place] [address] Nov, Encounter for well woman exam Z01.419 ; Screening for osteoporosis Z13.820 and Screening for colon cancer Z12.11 [facility] [address] [address] Oct, 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 [facility] [address] [address] September, [facility] [id number] [place] [address] September, [facility] [id number] [place] [address] Aug, Type 2 diabetes mellitus without complication, without long-term current use of insulin E11.9 ; Essential hypertension I10 ; Acquired hypothyroidism E03.9 and Low back pain M54.5 [facility] [id number] [place] [address] Aug, [facility] [id number] [place] [phone] Aug, [facility] [address] [address] Jul, [facility] [id number] [place] [phone] Jul, 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 [facility] [place] [address] [address] Jun, Low back pain M54.5 and Essential hypertension I10 [facility] [place] [id number] [place] [address] Jun, Head cold J00 [facility] [place] [id number] [place] [phone] May, [facility] [place] [id number] [place] [phone] Apr, Type 2 diabetes mellitus without complication, without long-term current use of insulin E11.9 [facility] [id number] [place] [address] Apr, Type 2 diabetes mellitus without complication, without long-term current use of insulin E11.9 [facility] [id number] [place] [phone] Apr, Essential hypertension I10 [facility] [place] [id number] [place] [phone] Mar, [facility] [id number] [place] [phone] Mar, [facility] [id number] [place] [phone] Mar, Osteoarthritis of spine with radiculopathy, cervical region M47.22 [facility] [place] [address] [place] [address] Mar, [facility] [id number] [place] [address] Feb, [facility] [place] [id number] [place] [address] Feb, Screening breast examination Z12.31 ; Bilateral carotid artery disease I77.9 ; Low back pain M54.5 ; Osteoarthritis of spine with radiculopathy, cervical region M47.22 ; Renal insufficiency N28.9 ; Vitamin D deficiency E55.9 ; Restless leg syndrome G25.81 ; Acquired hypothyroidism E03.9 ; 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 ; Vertigo R42 ; Essential hypertension I10 ; Type 2 diabetes mellitus with diabetic chronic kidney disease E11.22 and Encounter for immunization Z23 [facility] [id number] [place] [address] Jan, [facility] [id number] [place] [address] Jan, Type 2 diabetes mellitus without complication, without long-term current use of insulin E11.9 ; Low back pain M54.5 ; Osteoarthritis of spine with radiculopathy, cervical region M47.22 ; Renal insufficiency N28.9 ; Vitamin D deficiency E55.9 ; Restless leg syndrome G25.81 ; Bilateral carotid artery disease I77.9 ; Acquired hypothyroidism E03.9 ; 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 and Lipoma of back D17.1 [facility] [id number] [place] [phone] Jan, Type 2 diabetes mellitus without complication, without long-term current use of insulin E11.9 [facility] [id number] [place] [address] Dec, Osteoarthritis of spine with radiculopathy, cervical region M47.22 [facility] [id number] [place] [address] Nov, [facility] [id number] [place] [phone] Nov, Low back pain M54.5 and Osteoarthritis of spine with radiculopathy, cervical region M47.22 [facility] [id number] [place] [address] Nov, Osteoarthritis of spine with radiculopathy, cervical [...] hypothyroidism E03.9 ; 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 ; Hypercalcemia E83.52 and Left foot pain M79.672 [facility] [id number] [place] [address] Oct, [facility] [address] [address] Oct, Osteoarthritis of spine with radiculopathy, cervical region M47.22 [facility] [id number] [place] [address] Oct, Abnormal blood chemistry R79.9 [facility] [id number] [place] [address] September, Osteoarthritis of spine with radiculopathy, cervical region M47.22 ; Essential hypertension I10 ; Renal insufficiency N28.9 ; Type 2 diabetes mellitus without complication, without long-term current use of insulin E11.9 ; Vitamin D deficiency E55.9 ; Paresthesia of both hands R20.2 ; Low back pain M54.5 ; Restless leg syndrome G25.81 and Dizziness R42 [facility] [id number] [place] [address] September, [facility] [id number] [place] [phone] September, [facility] [id number] [place] [phone] September, [facility] [id number] [place] [phone] September, [facility] [id number] [place] [phone] Aug, [facility] [place] [address], [place] [address] Aug, [facility] [place] [id number] [place] [phone] Aug, [facility] [place] [id number] [place] [phone] Aug, [facility] [place] [id number] [place] [address] Aug, Osteoarthritis of spine with radiculopathy, cervical region M47.22 [facility] [place] [id number] [place] [address] Aug, Essential hypertension I10 ; Renal insufficiency N28.9 ; Type 2 diabetes mellitus without complication, without long-term current use of insulin E11.9 ; Vitamin D deficiency E55.9 ; Paresthesia of both hands R20.2 ; Low back pain M54.5 ; Restless leg syndrome G25.81 ; Osteoarthritis of spine with radiculopathy, cervical region M47.22 and Dizziness R42 [facility] [place] [id number] [place] [address] Jul, [facility] [place] [id number] [place] [address] Jul, [facility] [place] [id number] [place] [address] Jul, Essential hypertension I10 ; Paresthesia of both hands R20.2 ; Upper respiratory tract infection, unspecified type J06.9 and Low back pain M54.5 [facility] [place] [id number] [place] [address] 15 Jul, 2016 [facility] [place] [id number] [place] [address] 10 Jul, 2016 [facility] [place] [id number] [place] [address] Jul, Renal insufficiency N28.9 ; Vitamin D deficiency E55.9 ; Type 2 diabetes mellitus without complication, without long-term current use of insulin E11.9 ; Restless leg syndrome G25.81 ; Type 2 diabetes mellitus with diabetic chronic kidney disease E11.22 and Chronic kidney disease, stage 1 N18.1 [facility] [place] [id number] [place] [address] Jul, Renal insufficiency N28.9 [facility] [place] [id number] [place] [phone] Jun, [facility] [place] [id number] [place] [phone] Jun, Renal insufficiency N28.9 ; Vitamin D deficiency E55.9 ; Type 2 diabetes mellitus without complication, without long-term current use of insulin E11.9 ; Restless leg syndrome G25.81 ; Type 2 diabetes mellitus with diabetic chronic kidney disease E11.22 and Chronic kidney disease, stage 1 N18.1 [facility] [address], [place] [address] Jun, [facility] [place] [id number] [place] [phone] May, [facility] [place] [id number] [address] May, [facility] [address] [place] [address] May, [facility] [place] [address] [place] [address] May, [facility] [place] [id number] [place] [address] May, [facility] [place] [id number] [place] [address] Apr, Acquired hypothyroidism E03.9 ; Essential hypertension I10 ; Type 2 diabetes mellitus without complication, without long-term current use of insulin E11.9 and Mixed hyperlipidemia E78.2 [facility] [place] [address], [place] [address] 28 Apr, 2016 Type 2 diabetes mellitus without complication, without long-term current use of insulin E11.9 ; 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 ; Essential hypertension I10 and Acquired hypothyroidism E03.9 [facility] [place] [id number] [place] [address] Apr, Cellulitis of left lower extremity L03.116 [facility] [place] [id number] [place] [address] 20 Apr, 2016 Essential hypertension I10 ; Mixed hyperlipidemia E78.2 ; Type 2 diabetes mellitus without complication, without long-term current use of insulin E11.9 ; Acquired hypothyroidism E03.9 ; Cellulitis of left lower extremity L03.116 and 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 [facility] [place] [id number] [place] [phone] 14 Apr, 2016 [facility] [id number] [place] [phone] Dec, Dermatitis L30.9 [facility] [place] [id number] [place] [address] Aug, [facility] [place] [address] [place] [address] Aug, [facility] [place] [id number] [place] [address] Jan, [facility] [place] [id number] [place] [phone] Jan, [facility] [place] [id number] [place] [address] Jun, [facility] [place] [address] [place] [address] May, [facility] [place] [address] [place] [address] May, [facility] [place] [id number] [address] May, [facility] [place] [address] [place] [address] Apr, [facility] [place] [address] [place] [address] Feb, [facility] [place] [address] [place] [address] Feb, [facility] [place] [address] [place] [address] Nov, [facility] [place] [address] [place] [address] Nov, [facility] [place] [address] [place] [address] Nov, [facility] [place] [address] [place] [address] Nov, [facility] [place] [address] [place] [address] Nov, [facility] [place] [id number] [address] Nov, [facility] [place] [id number] [address] Nov, IMMUNIZATIONS No Known Immunizations SOCIAL HISTORY Never Assessed REASON FOR VISIT Medication refill request PLAN OF CARE VITAL SIGNS MEDICATIONS Medication Instructions Dosage Frequency Start Date End Date Duration Status OneTouch Ultra Blue - In Vitro Once a day test blood sugar 24h Apr, Active RESULTS No Results PROCEDURES No [...]
--- OUTSIDE RECORDS SUMMARY | 2018-10-08 06:54 | XMS REPORT ---
Author Author Migration, Doctor Organization [facility] Address Unknown Phone Unavailable Care Team Providers Care Fire Apparatus Sprinkler Inspector Name Role Phone Migration, Doctor Unavailable Unavailable PROBLEMS Type Condition ICD9-CM Code OFS40-QG Code Onset Dates Condition Status SNOMED Code Problem Renal insufficiency N28.9 Active 383682464 Problem Type 2 diabetes mellitus without complication, without long-term current use of insulin E11.9 Active 393006067 Problem Vitamin D deficiency E55.9 Active 58811320 Problem Essential hypertension I10 Active 47887030 Problem Coronary artery disease involving [place] coronary artery of [place] heart without angina pectoris I25.10 Active 4896825104093 Problem Restless leg syndrome G25.81 Active 43084684 Problem Type 2 diabetes mellitus with diabetic chronic kidney disease E11.22 Active 34291148 Problem Chronic kidney disease, stage 1 N18.1 Active 326979604 Problem Mixed incontinence N39.46 Active 798988058 Problem Acquired hypothyroidism E03.9 Active 538289616 Problem Seasonal allergies J30.2 Active 992322049 Problem Mixed hyperlipidemia E78.2 Active 652448350 Problem Low back pain M54.5 Active 600222266 Problem Osteoarthritis of spine with radiculopathy, cervical region M47.22 Active 520316775 Problem Bilateral carotid artery disease I77.9 Active 729548570 Problem Hypercalcemia E83.52 Active 09169338 ALLERGIES No Information ENCOUNTERS Encounter Location Date Diagnosis [facility] [id number] [place] [address] Aug, [facility] [address] [address] Jul, [facility] [id number] [address] Jul, Acute anterior epistaxis R04.0 [facility] [id number] [address] Jun, Low back pain M54.5 and Coronary artery disease involving chalky[place]ik coronary artery of [place] heart without angina pectoris I25.10 [facility] [id number] [place] [address] 14 Jun, 2018 Essential hypertension I10 [facility] [id number] [place] [address] Jun, Low back pain M54.5 [facility] [address] [address] Jun, [facility] [address] [address] May, Seasonal allergies J30.2 [facility] [id number] [place] [address] May, Low back pain M54.5 [address] [address] May, Mixed hyperlipidemia E78.2 ; Vertigo R42 ; Essential hypertension I10 ; Coronary artery disease involving chalk[place] coronary artery of [place] heart without angina pectoris I25.10 and Mixed incontinence N39.46 [facility] [id number] [place] [address] Apr, Contusion of face, initial encounter S00.83XA ; Low back pain M54.5 and Strain of left shoulder, initial encounter S46.912A [facility] [id number] [place] [address] Apr, [facility] [id number] [place] [address] Mar, [facility] [id number] [place] [address] Mar, [facility] [id number] [place] [address] Mar, Low back pain M54.5 ; Acquired hypothyroidism E03.9 ; Coronary artery disease involving chalk[place] coronary artery of [place] heart without angina pectoris I25.10 ; Mixed hyperlipidemia E78.2 and Vertigo R42 [place] [address] [address] Mar, [facility] [address] [address] Feb, Vertigo R42 [place] [address] [address] Feb, [place] [address] [address] Feb, Low back pain M54.5 [place] [address] [address] Feb, Essential hypertension I10 ; Mixed hyperlipidemia E78.2 ; Coronary artery disease involving chalk[place] coronary artery of [place] heart without angina pectoris I25.10 ; Screening for breast cancer Z12.31 and Mixed incontinence N39.46 [place] [id number] [place] [address] Jan, [place] [address] [address] Jan, Coronary artery disease involving chalk[place] coronary artery of [place] heart without angina pectoris I25.10 [place] [id number] [place] [address] Jan, Low back pain M54.5 and Coronary artery disease involving chalk[place] coronary artery of [place] heart without angina pectoris I25.10 [place] [id number] [place] [address] Dec, Acquired hypothyroidism E03.9 and Vertigo R42 [place] [address] [address] Dec, Low back pain M54.5 and Dermatitis L30.9 [place] [address] [address] Nov, Coronary artery disease involving chalk[place] coronary artery of [place] heart without angina pectoris I25.10 [facility] [id number] [place] [address] Nov, Acquired hypothyroidism E03.9 and Vertigo R42 [facility] [id number] [place] [address] Nov, Encounter for well woman exam Z01.419 ; Screening for osteoporosis Z13.820 and Screening for colon cancer Z12.11 [place] [id number] [place] [address] Oct, Coronary artery disease involving chalk[place] coronary artery of chalk[place] heart without angina pectoris I25.10 [place] [id number] [place] [address] September, [place] [id number] [place] [address] September, [facility] [id number] [place] [address] Aug, Type 2 diabetes mellitus without complication, without long-term current use of insulin E11.9 ; Essential hypertension I10 ; Acquired hypothyroidism E03.9 and Low back pain M54.5 [place] [id number] [place] [address] Aug, [place] [id number] [place] [address] Aug, [facility] [id number] [place] [address] Jul, [facility] [id number] [place] [address] Jul, Coronary artery disease involving chalk[place] coronary artery of chalk[place] heart without angina pectoris I25.10 [facility] [address] [address] Jun, Low back pain M54.5 and Essential hypertension I10 [place] [address] [address] Jun, Head cold J00 [place] [id number] [place] [address] May, [place] [id number] [place] [address] 14 Apr, 2017 Type 2 diabetes mellitus without complication, without long-term current use of insulin E11.9 [place] [id number] [place] [address] Apr, Type 2 diabetes mellitus without complication, without long-term current use of insulin E11.9 [place] [id number] [place] [address] Apr, Essential hypertension I10 [place] [id number] [place] [address] Mar, [place] [id number] [place] [address] Mar, [place] [id number] [place] [address] Mar, Osteoarthritis of spine with radiculopathy, cervical region M47.22 [place] [id number] [place] [address] Mar, [place] [id number] [place] [address] Feb, [place] [id number] [place] [address] Feb, Screening breast examination Z12.31 ; Bilateral carotid artery disease I77.9 ; Low back pain M54.5 ; Osteoarthritis of spine with radiculopathy, cervical region M47.22 ; Renal insufficiency N28.9 ; Vitamin D deficiency E55.9 ; Restless leg syndrome G25.81 ; Acquired hypothyroidism E03.9 ; Coronary artery disease involving chalk[place] coronary artery of chalk[place] heart without angina pectoris I25.10 ; Vertigo R42 ; Essential hypertension I10 ; Type 2 diabetes mellitus with diabetic chronic kidney disease E11.22 and Encounter for immunization Z23 [place] [id number] [place] [address] Jan, [place] [id number] [place] [address] Jan, Type 2 diabetes mellitus without complication, without long-term current use of insulin E11.9 ; Low back pain M54.5 ; Osteoarthritis of spine with radiculopathy, cervical region M47.22 ; Renal insufficiency N28.9 ; Vitamin D deficiency E55.9 ; Restless leg syndrome G25.81 ; Bilateral carotid artery disease I77.9 ; Acquired hypothyroidism E03.9 ; Coronary artery disease involving [place] coronary artery of chalk[place] heart without angina pectoris I25.10 and Lipoma of back D17.1 [place] [id number] [place] [address] Jan, Type 2 diabetes mellitus without complication, without long-term current use of insulin E11.9 [place] [id number] [place] [address] Dec, Osteoarthritis of spine with radiculopathy, cervical region M47.22 [place] [id number] [place] [address] Nov, [place] [id number] [place] [address] Nov, Low back pain M54.5 and Osteoarthritis of spine with radiculopathy, cervical region M47.22 [place] [id number] [place] [address] Nov, Osteoarthritis of spine with radiculopathy, cervical [...] hypothyroidism E03.9 ; Coronary artery disease involving chalk[place] coronary artery of [place] heart without angina pectoris I25.10 ; Hypercalcemia E83.52 and Left foot pain M79.672 [facility] [id number] [address] Oct, [place] [id number] [place] [address] Oct, Osteoarthritis of spine with radiculopathy, cervical region M47.22 [place] [id number] [place] [address] Oct, Abnormal blood chemistry R79.9 [place] [id number] [place] [address] September, Osteoarthritis of spine with radiculopathy, cervical region M47.22 ; Essential hypertension I10 ; Renal insufficiency N28.9 ; Type 2 diabetes mellitus without complication, without long-term current use of insulin E11.9 ; Vitamin D deficiency E55.9 ; Paresthesia of both hands R20.2 ; Low back pain M54.5 ; Restless leg syndrome G25.81 and Dizziness R42 [place] [id number] [place] [address] September, [place] [address] [address] September, [facility] [id number] [place] [address] September, [facility] [id number] [place] [address] September, [place] [id number] [place] [address] Aug, [facility] [id number] [place] [address] Aug, [place] [address] [address] Aug, [place] [id number] [place] [address] Aug, [place] [id number] [place] [address] Aug, Osteoarthritis of spine with radiculopathy, cervical region M47.22 [place] [id number] [place] [address] Aug, Essential hypertension I10 ; Renal insufficiency N28.9 ; Type 2 diabetes mellitus without complication, without long-term current use of insulin E11.9 ; Vitamin D deficiency E55.9 ; Paresthesia of both hands R20.2 ; Low back pain M54.5 ; Restless leg syndrome G25.81 ; Osteoarthritis of spine with radiculopathy, cervical region M47.22 and Dizziness R42 [place] [id number] [place] [address] Jul, [place] [id number] [place] [address] Jul, [place] [id number] [place] [address] Jul, Essential hypertension I10 ; Paresthesia of both hands R20.2 ; Upper respiratory tract infection, unspecified type J06.9 and Low back pain M54.5 [place] [address] [address] 15 Jul, 2016 [place] [address] [address] Jul, [place] [id number] [place] [address] 09 Jul, 2016 Renal insufficiency N28.9 ; Vitamin D deficiency E55.9 ; Type 2 diabetes mellitus without complication, without long-term current use of insulin E11.9 ; Restless leg syndrome G25.81 ; Type 2 diabetes mellitus with diabetic chronic kidney disease E11.22 and Chronic kidney disease, stage 1 N18.1 [facility] [address] [address] Jul, Renal insufficiency N28.9 [facility] [address] [address] Jun, [facility] [id number] [place] [address] Jun, Renal insufficiency N28.9 ; Vitamin D deficiency E55.9 ; Type 2 diabetes mellitus without complication, without long-term current use of insulin E11.9 ; Restless leg syndrome G25.81 ; Type 2 diabetes mellitus with diabetic chronic kidney disease E11.22 and Chronic kidney disease, stage 1 N18.1 [facility] [address] [address] Jun, [facility] [id number] [place] [address] May, [facility] [id number] [place] [address] May, [facility] [id number] [place] [address] May, [facility] [address] [address] May, [facility] [id number] [place] [address] May, [facility] [id number] [place] [address] Apr, Acquired hypothyroidism E03.9 ; Essential hypertension I10 ; Type 2 diabetes mellitus without complication, without long-term current use of insulin E11.9 and Mixed hyperlipidemia E78.2 [facility] [address] [address] Apr, Type 2 diabetes mellitus without complication, without long-term current use of insulin E11.9 ; Coronary artery disease involving [place] coronary artery of [place] heart without angina pectoris I25.10 ; Essential hypertension I10 and Acquired hypothyroidism E03.9 [facility] [id number] [place] [address] 21 Apr, 2016 Cellulitis of left lower extremity L03.116 [facility] [id number] [place] [address] 20 Apr, 2016 Essential hypertension I10 ; Mixed hyperlipidemia E78.2 ; Type 2 diabetes mellitus without complication, without long-term current use of insulin E11.9 ; Acquired hypothyroidism E03.9 ; Cellulitis of left lower extremity L03.116 and Coronary artery disease involving [place] coronary artery of [place] heart without angina pectoris I25.10 [facility] [id number] [place] [address] 14 Apr, 2016 [facility] [id number] [place] [address] Dec, Dermatitis L30.9 [facility] [id number] [place] [address] 14 Aug, 2014 [facility] [id number] [place] [address] Aug, [facility] [id number] [place] [address] Jan, [facility] [id number] [place] [address] Jan, [facility] [id number] [place] [address] Jun, [facility] [id number] [place] [address] May, [facility] [id number] [place] [address] May, [facility] [id number] [place] [address] May, [facility] [id number] [address] Apr, [facility] [address] [facility] [id number] [address] Feb, [facility] [address] [facility] [id number] [address] Feb, [facility] [address] [facility] [id number] [address] Nov, [facility] [address] [facility] [id number] [address] Nov, [facility] [address] [address] Nov, [facility] [address] [address] Nov, [facility] [address] [address] Nov, [facility] [id number] [address] Nov, [facility] [id number] [address] Nov, IMMUNIZATIONS No Known Immunizations SOCIAL HISTORY Never Assessed REASON FOR VISIT EMR-[facility] PLAN OF CARE VITAL SIGNS MEDICATIONS Unknown [...]
--- OUTSIDE RECORDS SUMMARY | 2018-10-08 07:17 | XMS REPORT | Continuity of Care Document ---
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 PAIN 10/09/2015 TANJA SANDOVAL MD Ot K52.9 NONINFECTIVE GASTROENTERITIS AND COLITIS 10/21/2015 BOBBI LEWIS MD Ot E78.2 MIXED HYPERLIPIDEMIA 10/21/2015 BOBBI LEWIS MD Ot I10 ESSENTIAL (PRIMARY) HYPERTENSION 10/21/2015 BOBBI LEWIS MD Ot I25.10 ATHSCL HEART DISEASE OF [place] CORONARY 10/21/2015 BOBBI LEWIS MD Ot R06.02 SHORTNESS OF BREATH 10/21/2015 BOBBI LEWIS MD Ot R07.89 OTHER CHEST PAIN 11/19/2015 DOLORES CRUZ Ot B35.4 TINEA CORPORIS 11/21/2015 DOLORES CRUZ Ot B35.4 TINEA CORPORIS 11/30/2015 Ot V76.12 OTH SCREEN MAMMO- MALIGN NEOPLASM OF [place] 11/30/2015 Ot 250.00 DIAB GUILLERMO WO COMPL, TYPE II OR UNSPEC TY 11/30/2015 Ot 593.9 RENAL URETERAL DIS NOS 11/30/2015 Ot 414.00 CORON ATHEROSCLER NOS TYPE VESSEL, NATIV 11/30/2015 Ot 786.50 CHEST PAIN NOS 11/30/2015 Ot 414.01 CORONARY ATHEROSCLEROSIS OF [place] CORON 11/30/2015 Ot 719.41 JOINT PAIN-SHLDER 11/30/2015 Ot 571.8 CHRONIC LIVER DIS NEC 11/30/2015 Ot 789.1 HEPATOMEGALY 11/30/2015 Ot 272.4 HYPERLIPIDEMIA NEC/NOS 11/30/2015 Ot 401.9 HYPERTENSION NOS 11/30/2015 Ot 414.00 CORON ATHEROSCLER NOS TYPE VESSEL, NATIV 11/30/2015 Ot V58.69 OTH MED,LT,CURRENT USE 11/30/2015 Ot V72.84 EXAM PRE-OPERATIVE NOS 11/30/2015 Ot 427.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 NEC [...] MD Ot 786.50 CHEST PAIN NOS 11/30/2015 NAKITA ROJO, RENATO Conley Ot 433.10 CAROTID ARTERY OCCLUSION W O CEREBRAL IN 11/30/2015 NAKITA ROJO, RENATO Conley Ot V72.84 EXAM PRE-OPERATIVE NOS 11/30/2015 NAKITA [...] GONZALEZ DO Ot 414.01 CORONARY ATHEROSCLEROSIS OF [place] CORON 11/30/2015 BOBBI LEWIS MD Ot 244.9 [...] V58.63 LONG-TERM(CURRENT)USE OF ANTIPLATELET/AN 11/30/2015 BOBBI LEWIS MD Ot V58.69 OTH MED,LT,CURRENT USE 11/30/2015 DANIELLA [...] MCGUIRE Ot 427.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 NEC 11/30/2015 GELLENDER DODANIELLA Ot 244.9 HYPOTHYROIDISM NOS 11/30/2015 GELLENDER DO, DANIELLA Bradford Ot 250.00 DIAB GUILLERMO WO COMPL, TYPE II OR UNSPEC TY 11/30/2015 GELLENDER DO, DANIELLA Bradford Ot 250.00 DIAB GUILLERMO WO COMPL, TYPE II OR UNSPEC TY 11/30/2015 GELLENDER DO, DANIELLA Bradford Ot 780.2 SYNCOPE AND COLLAPSE 11/30/2015 Ot R53.83 OTHER FATIGUE 11/30/2015 GELLENDER DODANIELLA Ot E03.9 HYPOTHYROIDISM, UNSPECIFIED 11/30/2015 GELLENDER DANIELLA MALDONADO Ot I10 ESSENTIAL (PRIMARY) HYPERTENSION 11/30/2015 GELLENDER DODANIELLA Ot R05 COUGH 11/30/2015 GELLENDER DODANIELLA Ot R06.02 SHORTNESS OF BREATH 11/30/2015 GELLENDER DODANIELLA Ot R53.83 OTHER FATIGUE 11/30/2015 JOSHUA ROJO, BOBBI Olivera Ot E78.2 MIXED HYPERLIPIDEMIA 11/30/2015 JOSHUA ROJO, BOBBI Olivera Ot I10 ESSENTIAL (PRIMARY) HYPERTENSION 11/30/2015 JOSHUA ROJO, BOBBI Olivera Ot I25.10 ATHSCL HEART DISEASE OF [place] CORONARY 11/30/2015 JOSHUA ROJO, BOBBI Olivera Ot R06.02 SHORTNESS OF BREATH 11/30/2015 JOSHUA ROJO, BOBBI Olivera Ot R07.89 OTHER CHEST PAIN 12/01/2015 GELLENDER DODANIELLA Ot E03.9 HYPOTHYROIDISM, UNSPECIFIED 12/01/2015 GELLENDER DODANIELLA Ot E78.5 HYPERLIPIDEMIA, UNSPECIFIED 12/16/2015 GELLENDER DODANIELLA Ot E03.9 HYPOTHYROIDISM, UNSPECIFIED 12/16/2015 GELLENDER DODANIELLA Ot E78.5 HYPERLIPIDEMIA, UNSPECIFIED 12/27/2015 GELLENDER DODANIELLA Ot E03.9 HYPOTHYROIDISM, UNSPECIFIED 01/17/2016 KATHRIN MCGUIRE Ot E78.2 MIXED HYPERLIPIDEMIA 01/17/2016 KATHRIN MCGUIRE Ot I25.10 ATHSCL HEART DISEASE OF [place] CORONARY 01/20/2016 LISA MALDONADODANIELLA Ot Z12.31 ENCNTR SCREEN MAMMOGRAM FOR MALIGNANT NE 01/20/2016 LISA DANIELLA MALDONADO Ot Z12.31 ENCNTR SCREEN MAMMOGRAM FOR MALIGNANT NE 01/25/2016 KATHRIN MCGUIRE Ot E78.2 MIXED HYPERLIPIDEMIA 01/25/2016 KATHRIN MCGUIRE Ot I10 ESSENTIAL (PRIMARY) HYPERTENSION 01/25/2016 KATHRIN MCGUIRE Ot I25.10 ATHSCL HEART DISEASE OF [place] CORONARY 01/25/2016 KATHRIN MCGUIRE Ot R07.89 OTHER CHEST PAIN 02/01/2016 DANIELLA GONZALEZ DO Ot Z12.31 ENCNTR SCREEN MAMMOGRAM FOR MALIGNANT NE 02/04/2016 AMANDEEP BORREGO DOA K Ot E11.9 TYPE 2 DIABETES MELLITUS WITHOUT COMPLIC 02/04/2016 ELMO MALDONADO PEDRO K Ot I10 ESSENTIAL (PRIMARY) HYPERTENSION 02/04/2016 AMANDEEP BORREGO DOA K Ot L30.9 DERMATITIS, UNSPECIFIED 02/04/2016 ELMO MALDONADO PEDRO K Ot R21 RASH AND OTHER NONSPECIFIC SKIN ERUPTION 02/04/2016 PEDRO BORREGO DO K Ot Z79.82 HALF-WAY (CURRENT) USE OF ASPIRIN 02/04/2016 AMANDEEP BORREGO DOA K Ot Z79.899 OTHER DATA TRANSCRIBER (CURRENT) DRUG THERAPY 02/04/2016 AMANDEEP BORREGO DOA K Ot Z95.5 PRESENCE OF CORONARY ANGIOPLASTY IMPLANT 02/06/2016 AMANDEEP BORREGO DOA K Ot E11.9 TYPE 2 DIABETES MELLITUS WITHOUT COMPLIC 02/06/2016 ELMO MALDONADO PEDRO K Ot I10 ESSENTIAL (PRIMARY) HYPERTENSION 02/06/2016 ELMO MALDONADO PEDRO K Ot L30.9 DERMATITIS, UNSPECIFIED 02/06/2016 ELMO DO PEDRO K Ot R21 RASH AND OTHER NONSPECIFIC SKIN ERUPTION 02/06/2016 AMANDEEP BORREGO DOA Makenna Ot Z79.82 HALF-WAY (CURRENT) USE OF ASPIRIN 02/06/2016 PEDRO BORREGO DO Ot Z79.899 OTHER HALF-WAY (CURRENT) DRUG THERAPY 02/06/2016 PEDRO BORREGO DO Ot Z95.5 PRESENCE OF CORONARY ANGIOPLASTY IMPLANT 02/09/2016 KATHRIN MCGUIRE Ot E78.2 MIXED HYPERLIPIDEMIA 02/09/2016 KATHRIN MCGUIRE Ot I10 ESSENTIAL (PRIMARY) HYPERTENSION 02/09/2016 KATHRIN MCGUIRE Ot I25.10 ATHSCL HEART DISEASE OF [place] CORONARY 02/09/2016 KATHRIN MCGUIRE Ot R07.89 OTHER CHEST PAIN 02/10/2016 Ot V76.12 OTH SCREEN MAMMO- MALIGN NEOPLASM OF [place] 02/10/2016 Ot 414.00 CORON ATHEROSCLER NOS TYPE VESSEL, NATIV 02/10/2016 Ot 786.50 CHEST PAIN NOS 02/10/2016 Ot 414.01 CORONARY ATHEROSCLEROSIS OF [place] CORON 02/10/2016 Ot 719.41 JOINT PAIN-SHLDER 02/10/2016 Ot 571.8 CHRONIC LIVER DIS NEC 02/10/2016 Ot 789.1 HEPATOMEGALY 02/10/2016 Ot 272.4 HYPERLIPIDEMIA NEC/NOS 02/10/2016 Ot 401.9 HYPERTENSION NOS 02/10/2016 Ot 414.00 CORON ATHEROSCLER NOS TYPE VESSEL, NATIV 02/10/2016 Ot V58.69 OTH MED,LT,CURRENT USE 02/10/2016 Ot V72.84 EXAM PRE-OPERATIVE NOS 02/10/2016 Ot 427.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 NEC [...] VESSEL, NATIV 02/10/2016 BOBBI LEWIS MD Ot 786.50 CHEST PAIN NOS 02/10/2016 NAKITA ROJO, RENATO Conley Ot 433.10 CAROTID ARTERY OCCLUSION W O CEREBRAL IN 02/10/2016 RENATO MACE MD Ot V72.84 EXAM PRE-OPERATIVE NOS 02/10/2016 RENATO MACE MD Ot V74.8 SCREEN-BACTERIAL DIS NEC 02/10/2016 DANIELLA [...] GONZALEZ DO Ot 414.01 CORONARY ATHEROSCLEROSIS OF [place] CORON 02/10/2016 BOBBI LEWIS MD Ot 244.9 [...] UNSPEC TY 02/10/2016 DANIELLA GONZALEZ DO Ot 250.00 DIAB GUILLERMO WO COMPL, TYPE II OR UNSPEC TY 02/10/2016 DANIELLA GONZALEZ DO Ot 780.2 SYNCOPE AND COLLAPSE 02/10/2016 Ot R53.83 OTHER FATIGUE 02/10/2016 DANIELLA GONZALEZ DO Ot E03.9 HYPOTHYROIDISM, UNSPECIFIED 02/10/2016 LISA MALDONADO, DANIELLA Bradford Ot I10 ESSENTIAL (PRIMARY) HYPERTENSION 02/10/2016 LISA MALDONADO, DANIELLA Bradford Ot R05 COUGH 02/10/2016 LISA MALDONADO, DANIELLA Bradford Ot R06.02 SHORTNESS OF BREATH 02/10/2016 DANIELLA GONZALEZ DO Ot R53.83 OTHER FATIGUE 02/10/2016 JOSHUA ROJO, BOBBI Olivera Ot E78.2 MIXED HYPERLIPIDEMIA 02/10/2016 JOSHUA ROJO, BOBBI Olivera Ot I10 ESSENTIAL (PRIMARY) HYPERTENSION 02/10/2016 JOSHUA ROJO, BOBBI Olivera Ot I25.10 ATHSCL HEART DISEASE OF [place] CORONARY 02/10/2016 JOSHUA ROJO, BOBBI Olivera Ot R06.02 SHORTNESS OF BREATH 02/10/2016 JOSHUA ROJO, BOBBI Olivera Ot R07.89 OTHER CHEST PAIN 02/10/2016 DANIELLA GONZALEZ DO Ot E03.9 HYPOTHYROIDISM, UNSPECIFIED 02/10/2016 LISA MALDONADO, DANIELLA Bradford Ot E78.5 HYPERLIPIDEMIA, UNSPECIFIED 02/10/2016 LISA MALDONADO, DANIELLA Bradford Ot E03.9 HYPOTHYROIDISM, UNSPECIFIED 02/10/2016 KATHRIN MCGUIRE Ot E78.2 MIXED HYPERLIPIDEMIA 02/10/2016 KATHRIN MCGUIRE Ot I25.10 ATHSCL HEART DISEASE OF [place] CORONARY 02/10/2016 KATHRIN MCGUIRE Ot E78.2 MIXED HYPERLIPIDEMIA 02/10/2016 KATHRIN MCGUIRE Ot I10 ESSENTIAL (PRIMARY) HYPERTENSION 02/10/2016 KATHRIN MCGUIRE Ot I25.10 ATHSCL HEART DISEASE OF [place] CORONARY 02/10/2016 KATHRIN MCGUIRE Ot R07.89 OTHER CHEST PAIN 02/10/2016 KATHRIN MCGUIRE Ot E78.2 MIXED HYPERLIPIDEMIA 02/10/2016 KATHRIN MCGUIRE Ot I10 ESSENTIAL (PRIMARY) HYPERTENSION 02/10/2016 KATHRIN MCGUIRE Ot I25.10 ATHSCL HEART DISEASE OF [place] CORONARY 02/10/2016 KATHRIN MCGUIRE Ot R07.89 OTHER CHEST PAIN 02/10/2016 LISA MALDONADO DANIELLA Bradford Ot Z12.31 ENCNTR SCREEN MAMMOGRAM FOR MALIGNANT NE 02/13/2016 KATHRIN MCGUIRE Ot E78.2 MIXED HYPERLIPIDEMIA 02/13/2016 KATHRIN MCGUIRE Ot I10 ESSENTIAL (PRIMARY) HYPERTENSION 02/13/2016 KATHRIN MCGUIRE Ot I25.10 ATHSCL HEART DISEASE OF [place] CORONARY 02/13/2016 KATHRIN MCGUIRE Ot R07.89 OTHER CHEST PAIN 02/22/2016 KATHRIN MCGUIRE Ot E78.2 MIXED HYPERLIPIDEMIA 02/22/2016 KATHRIN MCGUIRE Ot I10 ESSENTIAL (PRIMARY) HYPERTENSION 02/22/2016 KATHRIN MCGUIRE Ot I25.10 ATHSCL HEART DISEASE OF [place] CORONARY 02/22/2016 KATHRIN MCGUIRE Ot R07.89 OTHER CHEST PAIN 03/07/2016 BING LAM MD Ot E11.9 TYPE 2 DIABETES MELLITUS WITHOUT COMPLIC 03/07/2016 BING LAM MD Ot L30.9 DERMATITIS, UNSPECIFIED 03/07/2016 BING LAM MD Ot R19.7 DIARRHEA, UNSPECIFIED 03/07/2016 BING LAM MD Ot R42 DIZZINESS AND GIDDINESS 03/07/2016 BING LAM MD Ot Z79.82 DATA TRANSCRIBER (CURRENT) USE OF ASPIRIN 03/07/2016 BING LAM MD Ot Z79.84 DATA TRANSCRIBER (CURRENT) USE OF ORAL HYPOGLYC 03/07/2016 BING LAM MD Ot Z79.899 OTHER HALF-WAY (CURRENT) DRUG THERAPY 04/05/2016 DOLORES CRUZ Ot B35.4 TINEA CORPORIS 04/05/2016 DOLORES CRUZ Ot E11.9 TYPE 2 DIABETES MELLITUS WITHOUT COMPLIC 04/05/2016 DOLORES CRUZ Ot I10 ESSENTIAL (PRIMARY) HYPERTENSION 04/05/2016 DOLORES CRUZ Ot L30.9 DERMATITIS, UNSPECIFIED 04/05/2016 DOLORES CRUZ Ot R21 RASH AND OTHER NONSPECIFIC SKIN ERUPTION 04/05/2016 DOLORES CRUZ Ot Z79.82 HALF-WAY (CURRENT) USE OF ASPIRIN 04/05/2016 DOLORES CRUZ Ot Z79.899 OTHER HALF-WAY (CURRENT) DRUG THERAPY 04/06/2016 DOLORES CRUZ Ot B35.4 TINEA CORPORIS 04/06/2016 DOLORES CRUZ Ot E11.9 TYPE 2 DIABETES MELLITUS WITHOUT COMPLIC 04/06/2016 DOLORES CRUZ Ot I10 ESSENTIAL (PRIMARY) HYPERTENSION 04/06/2016 DOLORES CRUZ Ot L30.9 DERMATITIS, UNSPECIFIED 04/06/2016 DOLORES CRUZ Ot R21 RASH AND OTHER NONSPECIFIC SKIN ERUPTION 04/06/2016 DOLORES CRUZ Ot Z79.82 HALF-WAY (CURRENT) USE OF ASPIRIN 04/06/2016 DOLORES CRUZ Ot Z79.899 OTHER HALF-WAY (CURRENT) DRUG THERAPY 05/02/2016 DOLORES CRUZ Ot E11.9 TYPE 2 DIABETES MELLITUS WITHOUT COMPLIC 05/02/2016 DOLORES CRUZ Ot I10 ESSENTIAL (PRIMARY) HYPERTENSION 05/02/2016 DOLORES CRUZ Ot L50.9 URTICARIA, UNSPECIFIED 05/02/2016 DOLORES CRUZ Ot R21 RASH AND OTHER NONSPECIFIC SKIN ERUPTION 05/02/2016 DOLORES CRUZ Ot R42 DIZZINESS AND GIDDINESS 05/02/2016 DOLORES CRUZ Ot T37.0X5A ADVERSE EFFECT OF SULFONAMIDES, INITIAL 05/02/2016 DOLORES CRUZ Ot Z79.82 DATA TRANSCRIBER (CURRENT) USE OF ASPIRIN 05/02/2016 DOLORES CRUZ Ot Z79.84 HALF-WAY (CURRENT) USE OF ORAL HYPOGLYC 05/02/2016 DOLORES CRUZ Ot Z79.899 OTHER DATA TRANSCRIBER (CURRENT) DRUG THERAPY 05/02/2016 DOLORES CRUZ Ot Z95.5 PRESENCE OF CORONARY ANGIOPLASTY IMPLANT 06/18/2016 YEN SHAH, KATHRIN Mensah Ot E78.2 MIXED HYPERLIPIDEMIA 06/27/2016 BOBBI LEWIS MD Ot E03.9 HYPOTHYROIDISM, UNSPECIFIED 06/27/2016 BOBBI LEWIS MD Ot E11.9 TYPE 2 DIABETES MELLITUS WITHOUT COMPLIC 06/27/2016 BOBBI LEWIS MD Ot E66.9 OBESITY, UNSPECIFIED 06/27/2016 BOBBI LEWIS MD Ot E78.5 HYPERLIPIDEMIA, UNSPECIFIED 06/27/2016 BOBBI LEWIS MD Ot I10 ESSENTIAL (PRIMARY) HYPERTENSION 06/27/2016 BOBBI LEWIS MD Ot I25.10 ATHSCL HEART DISEASE OF [place] CORONARY 06/27/2016 BOBBI LEWIS MD Ot 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 DEPOLARIZATION 06/27/2016 BOBBI LEWIS MD Ot R07.89 OTHER CHEST PAIN 06/27/2016 BOBBI LEWIS MD Ot Z68.32 BODY MASS INDEX (BMI) 32.0-32.9, ADULT 06/27/2016 BOBBI LEWIS MD, Ot Z79.899 OTHER DATA TRANSCRIBER (CURRENT) DRUG THERAPY 06/27/2016 BOBBI LEWIS MD Ot Z86.73 PRSNL HX OF TIA (TIA), AND CEREB INFRC W 06/27/2016 BOBBI LEWIS MD, Ot Z87.891 PERSONAL HISTORY OF NICOTINE DEPENDENCE 06/27/2016 BOBBI LEWIS MD Ot Z95.5 PRESENCE OF CORONARY ANGIOPLASTY IMPLANT 07/03/2016 KATHRIN MCGUIRE Ot E78.2 MIXED HYPERLIPIDEMIA 07/21/2016 MEKHI VIEYRA MD Ot M54.5 LOW BACK PAIN 07/21/2016 MEKHI [...] APRN Ot I25.10 ATHSCL HEART DISEASE OF [place] CORONARY 07/21/2016 ABEBA OBRIEN APRN Ot M47.22 [...] APRN Ot I25.10 ATHSCL HEART DISEASE OF [place] CORONARY 07/23/2016 ABEBA OBRIEN APRN Ot M47.22 [...] APRN Ot I25.10 ATHSCL HEART DISEASE OF [place] CORONARY 08/01/2016 ABEBA OBRIEN APRN Ot 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 WITH RADICULOPATHY, CE 08/01/2016 OBRIEN, PETER J YARD LABOR SUPERVISOR Ot M54.5 LOW BACK PAIN 08/01/2016 ABEBA OBRIEN YARD LABOR SUPERVISOR Ot Z95.5 PRESENCE OF CORONARY ANGIOPLASTY IMPLANT 09/14/2016 SAKSHI TIDWELL MANAGER STRATEGY & ACCOUNT Ot 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 WITH RADICULOPATHY, CE 10/14/2016 TANJA SANDOVAL MD Ot E03.9 HYPOTHYROIDISM, UNSPECIFIED 10/14/2016 TANJA SANDOVAL MD A Ot E11.9 TYPE 2 DIABETES MELLITUS WITHOUT COMPLIC 10/14/2016 TANJA SANDOVAL MD A Ot E78.00 PURE HYPERCHOLESTEROLEMIA, UNSPECIFIED 10/14/2016 TANJA SANDOVAL MD A Ot E83.42 HYPOMAGNESEMIA 10/14/2016 TANJA SANDOVAL MD A Ot E83.52 HYPERCALCEMIA 10/14/2016 NADJA SANDOVAL MDNT A Ot E87.6 HYPOKALEMIA 10/14/2016 NADJA SANDOVAL MDNT A Ot I10 ESSENTIAL (PRIMARY) HYPERTENSION 10/14/2016 NADJA SANDOVAL MDNT A Ot I25.10 ATHSCL HEART DISEASE OF [place] CORONARY 10/14/2016 TANJA SANDOVAL MD A Ot R20.0 ANESTHESIA OF SKIN 10/14/2016 TANJA SANDOVAL MD A Ot Z79.82 HALF-WAY (CURRENT) USE OF ASPIRIN 10/14/2016 TANJA SANDOVAL [...] MELLITUS WITHOUT COMPLIC 10/17/2016 TANJA SANDOVAL MD A Ot E78.00 PURE HYPERCHOLESTEROLEMIA, UNSPECIFIED 10/17/2016 TANJA SANDOVAL MD A Ot E83.42 HYPOMAGNESEMIA 10/17/2016 NADJA SANDOVAL MDNT A Ot E83.52 HYPERCALCEMIA 10/17/2016 NADJA SANDOVAL MDNT A Ot E87.6 HYPOKALEMIA 10/17/2016 NADJA SANDOVAL MDNT A Ot I10 ESSENTIAL (PRIMARY) HYPERTENSION 10/17/2016 NADJA SANDOVAL MDNT A Ot I25.10 ATHSCL HEART DISEASE OF [place] CORONARY 10/17/2016 TANJA SANDOVAL MD Ot R20.0 ANESTHESIA OF SKIN 10/17/2016 TANJA SANDOVAL MD Ot Z79.82 HALF-WAY (CURRENT) USE OF ASPIRIN 10/17/2016 TANJA SANDOVAL MD Ot Z86.73 PRSNL HX OF TIA (TIA), AND CEREB INFRC W 10/17/2016 TANJA SANDOVAL MD, Ot Z87.891 PERSONAL HISTORY OF NICOTINE DEPENDENCE 10/17/2016 TANJA SANDOVAL MD Ot Z95.5 PRESENCE OF CORONARY ANGIOPLASTY IMPLANT 10/31/2016 MADLSAKSHI L MANAGER STRATEGY & ACCOUNT Ot I65.22 OCCLUSION AND STENOSIS OF LEFT CAROTID A 11/19/2016 MADL SAKSHI L MANAGER STRATEGY & ACCOUNT Ot I65.22 OCCLUSION AND STENOSIS OF LEFT CAROTID A 03/12/2017 MADLSAKSHI L MANAGER STRATEGY & ACCOUNT Ot Z12.31 ENCNTR SCREEN MAMMOGRAM FOR MALIGNANT NE 03/27/2017 MADMary SAKSHI L MANAGER STRATEGY & ACCOUNT Ot Z12.31 ENCNTR SCREEN MAMMOGRAM FOR MALIGNANT NE 04/10/2017 Ot V76.12 OTH SCREEN MAMMO- MALIGN NEOPLASM OF [place] 04/10/2017 Ot 272.4 HYPERLIPIDEMIA NEC/NOS 04/10/2017 Ot 401.9 HYPERTENSION NOS 04/10/2017 Ot 414.00 CORON ATHEROSCLER NOS TYPE VESSEL, NATIV 04/10/2017 Ot V58.69 OTH MED,LT,CURRENT USE 04/10/2017 Ot V72.84 EXAM PRE-OPERATIVE NOS 04/10/2017 Ot 427.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 NEC [...] GONZALEZ DO Ot 414.01 CORONARY ATHEROSCLEROSIS OF [place] CORON 04/10/2017 BOBBI LEWIS MD Ot 244.9 [...] GONZALEZ DO Ot 244.9 HYPOTHYROIDISM NOS 04/10/2017 GELDANIELLA MEJIA DO Ot 250.00 DIAB GUILLERMO WO COMPL, TYPE II OR UNSPEC TY 04/10/2017 DANIELLA GONZALEZ DO Ot 250.00 DIAB GUILLERMO WO COMPL, TYPE II OR UNSPEC TY 04/10/2017 DANIELLA GONZALEZ DO Ot 780.2 SYNCOPE AND COLLAPSE 04/10/2017 Ot R53.83 OTHER FATIGUE 04/10/2017 DANIELLA GONZALEZ DO Ot E03.9 HYPOTHYROIDISM, UNSPECIFIED 04/10/2017 DANIELLA GONZALEZ DO Ot I10 ESSENTIAL (PRIMARY) HYPERTENSION 04/10/2017 DANIELLA GONZALEZ DO Ot R05 COUGH 04/10/2017 DANIELLA GONZALEZ DO Ot R06.02 SHORTNESS OF BREATH 04/10/2017 DANIELLA GONZALEZ DO Ot R53.83 OTHER FATIGUE 04/10/2017 BOBBI LEWIS MD Ot E78.2 MIXED HYPERLIPIDEMIA 04/10/2017 BOBBI LEWIS MD Ot I10 ESSENTIAL (PRIMARY) HYPERTENSION 04/10/2017 BOBBI LEWIS MD Ot I25.10 ATHSCL HEART DISEASE OF [place] CORONARY 04/10/2017 BOBBI LEWIS MD Ot R06.02 SHORTNESS OF BREATH 04/10/2017 BOBBI LEWIS MD Ot R07.89 OTHER CHEST PAIN 04/10/2017 DANIELLA GONZALEZ DO Ot E03.9 HYPOTHYROIDISM, UNSPECIFIED 04/10/2017 DANIELLA GONZALEZ DO Ot E78.5 HYPERLIPIDEMIA, UNSPECIFIED 04/10/2017 DANIELLA GONZALEZ DO Ot E03.9 HYPOTHYROIDISM, UNSPECIFIED 04/10/2017 KATHRIN MCGUIRE Ot E78.2 MIXED HYPERLIPIDEMIA 04/10/2017 KATHRIN MCGUIRE Ot I25.10 ATHSCL HEART DISEASE OF [place] CORONARY 04/10/2017 KATHRIN MCGUIRE Ot E78.2 MIXED HYPERLIPIDEMIA 04/10/2017 KATHRIN MCGUIRE Ot I10 ESSENTIAL (PRIMARY) HYPERTENSION 04/10/2017 KATHRIN MCGUIRE Ot I25.10 ATHSCL HEART DISEASE OF [place] CORONARY 04/10/2017 KATHRIN MCGUIRE Ot R07.89 OTHER CHEST PAIN 04/10/2017 KATHRIN MCGUIRE Ot E78.2 MIXED HYPERLIPIDEMIA 04/10/2017 KATHRIN MCGUIRE Ot I10 ESSENTIAL (PRIMARY) HYPERTENSION 04/10/2017 KATHRIN MCGUIRE Ot I25.10 ATHSCL HEART DISEASE OF [place] CORONARY 04/10/2017 KATHRIN MCGUIRE Ot R07.89 OTHER CHEST PAIN 04/10/2017 DANIELLA GONZALEZ DO A Ot Z12.31 ENCNTR SCREEN MAMMOGRAM FOR MALIGNANT NE 04/10/2017 KATHRIN MCGUIRE Ot E78.2 MIXED HYPERLIPIDEMIA 04/10/2017 MADL, SAKSHI L MANAGER STRATEGY & ACCOUNT Ot 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 WITH RADICULOPATHY, CE 04/10/2017 MADL, SAKSHI L MANAGER STRATEGY & ACCOUNT Ot I65.22 OCCLUSION AND STENOSIS OF LEFT CAROTID A 04/10/2017 MADL, SAKSHI L MANAGER STRATEGY & ACCOUNT Ot Z12.31 ENCNTR SCREEN MAMMOGRAM FOR MALIGNANT NE 05/03/2017 MADL, SAKSHI L MANAGER STRATEGY & ACCOUNT Ot I77.9 DISORDER OF ARTERIES AND ARTERIOLES, UNS 05/03/2017 MADL, SAKSHI L MANAGER STRATEGY & ACCOUNT Ot Z98.890 OTHER SPECIFIED POSTPROCEDURAL STATES 07/26/2017 BING LAM MD Ot E03.9 HYPOTHYROIDISM, UNSPECIFIED 07/26/2017 BING LAM MD Ot E11.9 TYPE 2 DIABETES MELLITUS WITHOUT COMPLIC 07/26/2017 BING LAM MD Ot E78.00 PURE HYPERCHOLESTEROLEMIA, UNSPECIFIED 07/26/2017 BING LAM MD Ot I10 ESSENTIAL (PRIMARY) HYPERTENSION 07/26/2017 BING LAM MD Ot I25.10 ATHSCL HEART DISEASE OF [place] CORONARY 07/26/2017 BING LAM MD Ot L30.9 DERMATITIS, UNSPECIFIED 07/26/2017 BING LAM MD, Ot R20.2 PARESTHESIA OF SKIN 07/26/2017 BING LAM MD Ot R21 RASH AND OTHER NONSPECIFIC SKIN ERUPTION 07/26/2017 BING LAM MD Ot Z79.52 HALF-WAY (CURRENT) USE OF SYSTEMIC STER 07/26/2017 BING LAM MD Ot Z79.82 HALF-WAY (CURRENT) USE OF ASPIRIN 07/26/2017 BING LAM MD Ot Z86.73 PRSNL HX OF TIA (TIA), AND CEREB INFRC W 07/26/2017 BING LAM MD Ot Z86.79 PERSONAL HISTORY OF OTHER DISEASES OF TH 07/26/2017 BING LAM MD Ot Z87.19 PERSONAL HISTORY OF OTHER DISEASES OF TH 07/26/2017 BING LAM MD Ot Z87.891 PERSONAL [...] MD Ot I25.10 ATHSCL HEART DISEASE OF [place] CORONARY 07/29/2017 BING LAM MD Ot L30.9 DERMATITIS, UNSPECIFIED 07/29/2017 BING LAM MD Ot R20.2 PARESTHESIA OF SKIN 07/29/2017 BING LAM MD Ot R21 RASH AND OTHER NONSPECIFIC SKIN ERUPTION 07/29/2017 BING LAM MD Ot Z79.52 DATA TRANSCRIBER (CURRENT) USE OF SYSTEMIC STER 07/29/2017 BING LAM MD Ot Z79.82 DATA TRANSCRIBER (CURRENT) USE OF ASPIRIN 07/29/2017 BING LAM MD Ot Z86.73 PRSNL HX OF TIA (TIA), AND CEREB INFRC W 07/29/2017 BING LAM MD Ot Z86.79 PERSONAL HISTORY OF OTHER DISEASES OF 07/29/2017 BING LAM MD Ot Z87.19 PERSONAL HISTORY OF OTHER DISEASES OF 07/29/2017 BING LAM MD Ot Z87.891 PERSONAL HISTORY OF NICOTINE DEPENDENCE 07/29/2017 GENARO ROJO, BING Cabrera Ot Z90.89 ACQUIRED ABSENCE OF OTHER ORGANS 07/29/2017 GENARO ROJO, BING Cabrera Ot Z95.5 PRESENCE OF CORONARY ANGIOPLASTY IMPLANT [...] MD Ot 786.50 CHEST PAIN NOS 11/26/2017 RENATO MACE MD Ot 433.10 CAROTID ARTERY OCCLUSION W O CEREBRAL IN 11/26/2017 RENATO MACE MD Ot V72.84 EXAM PRE-OPERATIVE NOS 11/26/2017 RENATO [...] GONZALEZ DO Ot 414.01 CORONARY ATHEROSCLEROSIS OF [place] CORON 11/26/2017 BOBBI LEWIS MD Ot 244.9 HYPOTHYROIDISM NOS 11/26/2017 BOBBI LEWIS MD Ot 250.00 DIAB GUILLERMO WO COMPL, TYPE II OR UNSPEC TY 11/26/2017 BOBBI LEWIS MD Ot 401.9 HYPERTENSION NOS 11/26/2017 BOBBI LEWIS MD Ot 414.00 CORON ATHEROSCLER NOS TYPE VESSEL, NATIV 11/26/2017 BOBBI ELWIS MD Ot 427.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 NEC 11/26/2017 BOBBI LEWIS MD Ot 433.10 CAROTID ARTERY OCCLUSION W O CEREBRAL IN 11/26/2017 BOBBI LEWIS MD Ot 435.9 TRANS CEREB ISCHEMIA NOS 11/26/2017 BOBBI LEWIS MD Ot 780.2 SYNCOPE AND COLLAPSE 11/26/2017 BOBBI LEWIS MD Ot V58.63 LONG-TERM(CURRENT)USE OF ANTIPLATELET/AN 11/26/2017 BOBBI LEWIS MD Ot V58.69 OTH MED,LT,CURRENT USE 11/26/2017 DANIELLA GONZALEZ DO Ot [...] Ot 427.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 NEC 11/26/2017 GELLENDER DODANIELLA Ot 244.9 HYPOTHYROIDISM NOS 11/26/2017 GELLENDER DO, DANIELLA Bradford Ot 250.00 DIAB GUILLERMO WO COMPL, TYPE II OR UNSPEC TY 11/26/2017 GELLENDER DO, DANIELLA Bradford Ot 250.00 DIAB GUILLERMO WO COMPL, TYPE II OR UNSPEC TY 11/26/2017 GELLENDER DO, DANIELLA Bradford Ot 780.2 SYNCOPE AND COLLAPSE 11/26/2017 Ot R53.83 OTHER FATIGUE 11/26/2017 GELLENDER DODANIELLA Ot E03.9 HYPOTHYROIDISM, UNSPECIFIED 11/26/2017 GELLENDER DODANIELLA Ot I10 ESSENTIAL (PRIMARY) HYPERTENSION 11/26/2017 GELLENDER DODANIELLA Ot R05 COUGH 11/26/2017 GELLENDER DODANIELLA Ot R06.02 SHORTNESS OF BREATH 11/26/2017 GELLENDER DODANIELLA Ot R53.83 OTHER FATIGUE 11/26/2017 BOBBI LEWIS MD Ot E78.2 MIXED HYPERLIPIDEMIA 11/26/2017 BOBBI LEWIS MD Ot I10 ESSENTIAL (PRIMARY) HYPERTENSION 11/26/2017 BOBBI LEWIS MD Ot I25.10 ATHSCL HEART DISEASE OF [place] CORONARY 11/26/2017 BOBBI LEWIS MD Ot R06.02 SHORTNESS OF BREATH 11/26/2017 BOBBI LEWIS MD Ot R07.89 OTHER CHEST PAIN 11/26/2017 GELLENDER DODANIELLA Ot E03.9 HYPOTHYROIDISM, UNSPECIFIED 11/26/2017 GELLENDER DODANIELLA Ot E78.5 HYPERLIPIDEMIA, UNSPECIFIED 11/26/2017 GELLENDER DODANIELLA Ot E03.9 HYPOTHYROIDISM, UNSPECIFIED 11/26/2017 YEN SHAH KATHRIN K Ot E78.2 MIXED HYPERLIPIDEMIA 11/26/2017 KATHRIN MCGUIRE Ot I25.10 ATHSCL HEART DISEASE OF [place] CORONARY 11/26/2017 KATHRIN MCGUIRE Ot E78.2 MIXED HYPERLIPIDEMIA 11/26/2017 KATHRIN MCGUIRE Ot I10 ESSENTIAL (PRIMARY) HYPERTENSION 11/26/2017 KATHRIN MCGUIRE Ot I25.10 ATHSCL HEART DISEASE OF [place] CORONARY 11/26/2017 YEN SHAH KATHRIN K Ot R07.89 OTHER CHEST PAIN 11/26/2017 KATHRIN MCGUIRE Ot E78.2 MIXED HYPERLIPIDEMIA 11/26/2017 KATHRIN MCGUIRE Ot I10 ESSENTIAL (PRIMARY) HYPERTENSION 11/26/2017 KATHRIN MCGUIRE Ot I25.10 ATHSCL HEART DISEASE OF [place] CORONARY 11/26/2017 KATHRIN MCGUIRE Ot R07.89 OTHER CHEST PAIN 11/26/2017 PJJACKIE MALDONADO DANIELLA Bradford Ot Z12.31 ENCNTR SCREEN MAMMOGRAM FOR MALIGNANT NE 11/26/2017 KATHRIN MCGUIRE Ot E78.2 MIXED HYPERLIPIDEMIA 11/26/2017 MADL, SAKSHI L MANAGER STRATEGY & ACCOUNT Ot 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 WITH RADICULOPATHY, CE 11/26/2017 MADL, SAKSHI L MANAGER STRATEGY & ACCOUNT Ot I65.22 OCCLUSION AND STENOSIS OF LEFT CAROTID A 11/26/2017 MADL, SAKSHI L MANAGER STRATEGY & ACCOUNT Ot Z12.31 ENCNTR SCREEN MAMMOGRAM FOR MALIGNANT NE 11/26/2017 MADL, SAKSHI L MANAGER STRATEGY & ACCOUNT Ot I77.9 DISORDER OF ARTERIES AND ARTERIOLES, UNS 11/26/2017 YAW SAKSHI L MANAGER STRATEGY & ACCOUNT Ot Z98.890 OTHER SPECIFIED POSTPROCEDURAL STATES 11/26/2017 JOSHUA ROJO, BOBBI Olivera Ot E78.2 MIXED HYPERLIPIDEMIA 11/26/2017 BOBBI LEWIS MD Ot I10 ESSENTIAL (PRIMARY) HYPERTENSION 11/26/2017 BOBBI LEWIS MD Ot I25.10 ATHSCL HEART DISEASE OF [place] CORONARY 11/26/2017 BOBBI LEWIS MD Ot R07.89 [...] MD Ot 786.50 CHEST PAIN NOS 11/28/2017 RENATO MACE MD Ot 433.10 CAROTID ARTERY OCCLUSION W O CEREBRAL IN 11/28/2017 RENATO MACE MD Ot V72.84 EXAM PRE-OPERATIVE NOS 11/28/2017 RENATO MACE MD Ot V74.8 SCREEN-BACTERIAL DIS NEC 11/28/2017 DANIELLA [...] GONZALEZ DO Ot 414.01 CORONARY ATHEROSCLEROSIS OF [place] CORON 11/28/2017 BOBBI LEWIS MD Ot 244.9 [...] V58.63 LONG-TERM(CURRENT)USE OF ANTIPLATELET/AN 11/28/2017 BOBBI LEWIS MD, Ot V58.69 OTH MED,LT,CURRENT USE 11/28/2017 DANIELLA [...] Ot 427.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 NEC 11/28/2017 GELLENDER DODANIELLA Ot 244.9 HYPOTHYROIDISM NOS 11/28/2017 GELLENDER DO, DANIELLA Bradford Ot 250.00 DIAB GUILLERMO WO COMPL, TYPE II OR UNSPEC TY 11/28/2017 GELLENDER DO, DANIELLA Bradford Ot 250.00 DIAB GUILLERMO WO COMPL, TYPE II OR UNSPEC TY 11/28/2017 GELLENDER DO, DANIELLA Bradford Ot 780.2 SYNCOPE AND COLLAPSE 11/28/2017 Ot R53.83 OTHER FATIGUE 11/28/2017 GELLENDER DODANIELLA Ot E03.9 HYPOTHYROIDISM, UNSPECIFIED 11/28/2017 GELLENDER DODANIELLA Ot I10 ESSENTIAL (PRIMARY) HYPERTENSION 11/28/2017 GELLENDER DODANIELLA Ot R05 COUGH 11/28/2017 GELLENDER DODANIELLA Ot R06.02 SHORTNESS OF BREATH 11/28/2017 GELLENDER DODANIELLA Ot R53.83 OTHER FATIGUE 11/28/2017 BOBIB LEWIS MD Ot E78.2 MIXED HYPERLIPIDEMIA 11/28/2017 BOBBI LEWIS MD Ot I10 ESSENTIAL (PRIMARY) HYPERTENSION 11/28/2017 BOBBI LEWIS MD Ot I25.10 ATHSCL HEART DISEASE OF [place] CORONARY 11/28/2017 BOBBI LEWIS MD Ot R06.02 SHORTNESS OF BREATH 11/28/2017 BOBBI LEWIS MD Ot R07.89 OTHER CHEST PAIN 11/28/2017 GELLENDER DODANIELLA Ot E03.9 HYPOTHYROIDISM, UNSPECIFIED 11/28/2017 GELLENDER DODANIELLA Ot E78.5 HYPERLIPIDEMIA, UNSPECIFIED 11/28/2017 GELLENDER DODANIELLA Ot E03.9 HYPOTHYROIDISM, UNSPECIFIED 11/28/2017 YEN SHAH KATHRIN K Ot E78.2 MIXED HYPERLIPIDEMIA 11/28/2017 YEN SHAH KATHRIN K Ot I25.10 ATHSCL HEART DISEASE OF [place] CORONARY 11/28/2017 YEN SHAH KATHRIN K Ot E78.2 MIXED HYPERLIPIDEMIA 11/28/2017 YEN SHAH KATHRIN K Ot I10 ESSENTIAL (PRIMARY) HYPERTENSION 11/28/2017 YEN SHAH KATHRIN K Ot I25.10 ATHSCL HEART DISEASE OF [place] CORONARY 11/28/2017 YEN SHAH KATHRIN K Ot R07.89 OTHER CHEST PAIN 11/28/2017 YEN SHAH KATHRIN K Ot E78.2 MIXED HYPERLIPIDEMIA 11/28/2017 YEN SHAH KATHRIN K Ot I10 ESSENTIAL (PRIMARY) HYPERTENSION 11/28/2017 YEN SHAH KATHRIN K Ot I25.10 ATHSCL HEART DISEASE OF [place] CORONARY 11/28/2017 YEN SHAH KATHRIN K Ot R07.89 OTHER CHEST PAIN 11/28/2017 DANIELLA GONZALEZ DO A Ot Z12.31 ENCNTR SCREEN MAMMOGRAM FOR MALIGNANT NE 11/28/2017 YEN SHAH KATHRIN K Ot E78.2 MIXED HYPERLIPIDEMIA 11/28/2017 MADL, SAKSHI L MANAGER STRATEGY & ACCOUNT Ot 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 WITH RADICULOPATHY, CE 11/28/2017 MADL, SAKSHI L MANAGER STRATEGY & ACCOUNT Ot I65.22 OCCLUSION AND STENOSIS OF LEFT CAROTID A 11/28/2017 MADL, SAKSHI L MANAGER STRATEGY & ACCOUNT Ot Z12.31 ENCNTR SCREEN MAMMOGRAM FOR MALIGNANT NE 11/28/2017 MADL, SAKSHI L MANAGER STRATEGY & ACCOUNT Ot I77.9 DISORDER OF ARTERIES AND ARTERIOLES, UNS 11/28/2017 MADL, SAKSHI L MANAGER STRATEGY & ACCOUNT Ot Z98.890 OTHER SPECIFIED POSTPROCEDURAL STATES 11/28/2017 JOSHUA ROJO, BOBBI Olivera Ot E78.2 MIXED HYPERLIPIDEMIA 11/28/2017 JOSHUA ROJO, BOBBI Olivera Ot I10 ESSENTIAL (PRIMARY) HYPERTENSION 11/28/2017 BOBBI LEWIS MD Ot I25.10 ATHSCL HEART DISEASE OF [place] CORONARY 11/28/2017 BOBBI LEWIS MD Ot R07.89 OTHER CHEST PAIN 11/28/2017 BOBBI LEWIS MD Ot R60.0 LOCALIZED EDEMA 11/29/2017 JASIEL KENDRICK YARD LABOR SUPERVISOR Ot Z13.820 ENCOUNTER FOR SCREENING FOR OSTEOPOROSIS [...] GONZALEZ DO Ot 414.01 CORONARY ATHEROSCLEROSIS OF [place] CORON 03/05/2018 BBOBI LEWIS MD Ot 244.9 HYPOTHYROIDISM NOS 03/05/2018 [...] V58.63 LONG-TERM(CURRENT)USE OF ANTIPLATELET/AN 03/05/2018 BOBBI LEWIS MD Ot V58.69 OTH MED,LT,CURRENT USE 03/05/2018 DANIELLA [...] CORON ATHEROSCLER NOS TYPE VESSEL, NATIV 03/05/2018 YEN SHAH KATHRIN K Ot 427.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 NEC 03/05/2018 PJSANDRABRIAN DANIELLA MALDONADO Ot 244.9 HYPOTHYROIDISM NOS 03/05/2018 PJLENDER DODANIELLA Ot 250.00 DIAB GUILLERMO WO COMPL, TYPE II OR UNSPEC TY 03/05/2018 PJLENDER DANIELLA MALDONADO Ot 250.00 DIAB GUILLERMO WO COMPL, TYPE II OR UNSPEC TY 03/05/2018 DANIELLA GONZALEZ DO Ot 780.2 SYNCOPE AND COLLAPSE 03/05/2018 Ot R53.83 OTHER FATIGUE 03/05/2018 PJSANDRADER DANIELLA MALDONADO Ot E03.9 HYPOTHYROIDISM, UNSPECIFIED 03/05/2018 DANIELLA GONZALEZ DO Ot I10 ESSENTIAL (PRIMARY) HYPERTENSION 03/05/2018 DANIELLA GONZALEZ DO Ot R05 COUGH 03/05/2018 KIMDER DANIELLA MALDONADO Ot R06.02 SHORTNESS OF BREATH 03/05/2018 DANIELLA GONZALEZ DO Ot R53.83 OTHER FATIGUE 03/05/2018 BOBBI LEWIS MD Ot E78.2 MIXED HYPERLIPIDEMIA 03/05/2018 BOBBI LEWIS MD Ot I10 ESSENTIAL (PRIMARY) HYPERTENSION 03/05/2018 BOBBI LEWIS MD Ot I25.10 ATHSCL HEART DISEASE OF [place] CORONARY 03/05/2018 BOBBI LEWIS MD Ot R06.02 SHORTNESS OF BREATH 03/05/2018 BOBBI LEWIS MD Ot R07.89 OTHER CHEST PAIN 03/05/2018 GELSANDRADER DANIELLA MALDONADO Ot E03.9 HYPOTHYROIDISM, UNSPECIFIED 03/05/2018 GELLENDER DANIELLA MALDONADO Ot E78.5 HYPERLIPIDEMIA, UNSPECIFIED 03/05/2018 DANIELLA GONZALEZ DO Ot E03.9 HYPOTHYROIDISM, UNSPECIFIED 03/05/2018 YEN SHAH KATHRIN K Ot E78.2 MIXED HYPERLIPIDEMIA 03/05/2018 YEN SHHA KATHRIN K Ot I25.10 ATHSCL HEART DISEASE OF [place] CORONARY 03/05/2018 YEN SHAH KATHRIN K Ot E78.2 MIXED HYPERLIPIDEMIA 03/05/2018 YEN SHAH KATHRIN K Ot I10 ESSENTIAL (PRIMARY) HYPERTENSION 03/05/2018 YEN SHAH KATHRIN K Ot I25.10 ATHSCL HEART DISEASE OF [place] CORONARY 03/05/2018 YEN SHAH KATHRIN K Ot R07.89 OTHER CHEST PAIN 03/05/2018 YEN SHAH KATHRIN K Ot E78.2 MIXED HYPERLIPIDEMIA 03/05/2018 YEN SHAH KATHRIN K Ot I10 ESSENTIAL (PRIMARY) HYPERTENSION 03/05/2018 YEN SHAH KATHRIN K Ot I25.10 ATHSCL HEART DISEASE OF [place] CORONARY 03/05/2018 YEN SHAH KATHRIN K Ot R07.89 OTHER CHEST PAIN 03/05/2018 KIMBRIAN DO DANIELLA Bradford Ot Z12.31 ENCNTR SCREEN MAMMOGRAM FOR MALIGNANT NE 03/05/2018 KATHRIN MCGUIRE Ot E78.2 MIXED HYPERLIPIDEMIA 03/05/2018 DANIELLEL, SAKSHI L MANAGER STRATEGY & ACCOUNT Ot 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 WITH RADICULOPATHY, CE 03/05/2018 YAW, SAKSHI L MANAGER STRATEGY & ACCOUNT Ot I65.22 OCCLUSION AND STENOSIS OF LEFT CAROTID A 03/05/2018 MADMary, SAKSHI L MANAGER STRATEGY & ACCOUNT Ot Z12.31 ENCNTR SCREEN MAMMOGRAM FOR MALIGNANT NE 03/05/2018 MADMary, SAKSHI L MANAGER STRATEGY & ACCOUNT Ot I77.9 DISORDER OF ARTERIES AND ARTERIOLES, UNS 03/05/2018 YAW, SAKSHI L MANAGER STRATEGY & ACCOUNT Ot Z98.890 OTHER SPECIFIED POSTPROCEDURAL STATES 03/05/2018 JOSHUA ROJO, BOBBI Olivera Ot E78.2 MIXED HYPERLIPIDEMIA 03/05/2018 BOBBI LEWIS MD Ot I10 ESSENTIAL (PRIMARY) HYPERTENSION 03/05/2018 BOBBI LEWIS MD Ot I25.10 ATHSCL HEART DISEASE OF [place] CORONARY 03/05/2018 BOBBI LEWIS MD Ot R07.89 OTHER CHEST PAIN 03/05/2018 BOBBI LEWIS MD Ot R60.0 LOCALIZED EDEMA 03/05/2018 JASIEL KENDRICK YARD LABOR SUPERVISOR Ot Z13.820 ENCOUNTER FOR SCREENING FOR OSTEOPOROSIS 03/18/2018 JASIEL KENDRICK YARD LABOR SUPERVISOR Ot Z12.31 ENCNTR SCREEN MAMMOGRAM FOR MALIGNANT NE 03/23/2018 JASIEL KENDRICK ARTURO Ot Z12.31 ENCNTR SCREEN MAMMOGRAM FOR MALIGNANT NE 04/05/2018 ABEBA OBRIEN APRN Ot E03.9 HYPOTHYROIDISM, UNSPECIFIED 04/05/2018 ABEBA OBRIEN APRN Ot E11.9 TYPE 2 DIABETES MELLITUS WITHOUT COMPLIC 04/05/2018 ABEBA OBRIEN APRN Ot E78.00 PURE HYPERCHOLESTEROLEMIA, UNSPECIFIED 04/05/2018 ABEBA OBRIEN APRN Ot I10 ESSENTIAL (PRIMARY) HYPERTENSION 04/05/2018 ABEBA OBRIEN APRN Ot I25.10 ATHSCL HEART DISEASE OF [place] CORONARY 04/05/2018 ABEBA OBRIEN APRN Ot I73.9 PERIPHERAL VASCULAR DISEASE, UNSPECIFIED 04/05/2018 ABEBA OBRIEN APRN Ot R42 DIZZINESS AND GIDDINESS 04/05/2018 ABEBA OBRIEN APRN Ot Z79.02 HALF-WAY (CURRENT) USE OF ANTITHROMBOTI 04/05/2018 ABEBA OBRIEN APRN Ot Z79.52 HALF-WAY (CURRENT) USE OF SYSTEMIC STER 04/05/2018 ABEBA OBRIEN APRN Ot Z79.82 DATA TRANSCRIBER (CURRENT) USE OF ASPIRIN 04/05/2018 ABEBA OBRIEN APRN Ot Z80.51 FAMILY HISTORY OF MALIGNANT NEOPLASM OF 04/05/2018 ABEBA OBRIEN APRN Ot Z80.8 FAMILY HISTORY OF MALIG[place] NEOPLASM OF 04/05/2018 ABEBA OBRIEN APRN Ot Z82.49 FAMILY HX OF ISCHEM HEART DIS AND OTH DI 04/05/2018 ABEBA OBRIEN APRN Ot Z86.73 PRSNL HX OF TIA (TIA), AND CEREB INFRC W 04/05/2018 ABEBA OBRIEN APRN Ot Z87.448 PERSONAL HISTORY OF OTHER DISEASES OF UR 04/05/2018 ABEBA OBRIEN APRN Ot Z87.891 PERSONAL HISTORY OF NICOTINE DEPENDENCE 04/05/2018 ABEBA OBRIEN APRN Ot Z90.89 ACQUIRED ABSENCE OF OTHER ORGANS 04/05/2018 ABEBA OBRIEN APRN Ot Z95.5 PRESENCE OF CORONARY ANGIOPLASTY IMPLANT 04/05/2018 ABEBA OBRIEN APRN Ot Z95.9 PRESENCE OF CARDIAC AND VASCULAR IMPLANT 04/05/2018 ABEBA OBRIEN APRN Ot Z98.890 OTHER SPECIFIED POSTPROCEDURAL STATES 04/05/2018 JASIEL KENDRICK YARD LABOR SUPERVISOR Ot Z13.820 ENCOUNTER FOR SCREENING FOR OSTEOPOROSIS 04/08/2018 ABEBA OBRIEN APRN Ot E03.9 HYPOTHYROIDISM, UNSPECIFIED 04/08/2018 ABEBA OBRIEN APRN Ot E11.9 TYPE 2 DIABETES MELLITUS WITHOUT COMPLIC 04/08/2018 ABEBA OBRIEN APRN Ot E78.00 PURE HYPERCHOLESTEROLEMIA, UNSPECIFIED 04/08/2018 ABEBA OBRIEN APRN Ot I10 ESSENTIAL (PRIMARY) HYPERTENSION 04/08/2018 ABEBA OBRIEN APRN Ot I25.10 ATHSCL HEART DISEASE OF [place] CORONARY 04/08/2018 ABEBA OBRIEN APRN Ot I73.9 PERIPHERAL VASCULAR DISEASE, UNSPECIFIED 04/08/2018 ABEBA OBRIEN APRN Ot R42 DIZZINESS AND GIDDINESS 04/08/2018 ABEBA OBRIEN APRN Ot Z79.02 HALF-WAY (CURRENT) USE OF ANTITHROMBOTI 04/08/2018 ABEBA OBRIEN APRN Ot Z79.52 HALF-WAY (CURRENT) USE OF SYSTEMIC STER 04/08/2018 ABEBA OBRIEN APRN Ot Z79.82 DATA TRANSCRIBER (CURRENT) USE OF ASPIRIN 04/08/2018 ABEBA OBRIEN APRN Ot Z80.51 FAMILY HISTORY OF MALIGNANT NEOPLASM OF 04/08/2018 ABEBA OBRIEN APRN Ot Z80.8 FAMILY HISTORY OF MALIGNANT NEOPLASM OF 04/08/2018 ABEBA OBRIEN APRN Ot Z82.49 FAMILY HX OF ISCHEM HEART DIS AND OTH DI 04/08/2018 ABEBA OBRIEN APRN Ot Z86.73 PRSNL HX OF TIA (TIA), AND CEREB INFRC W 04/08/2018 ABEBA OBRIEN APRN Ot Z87.448 PERSONAL HISTORY OF OTHER DISEASES OF UR 04/08/2018 OBRIEN, PETER J YARD LABOR SUPERVISOR Ot Z87.891 PERSONAL HISTORY OF NICOTINE DEPENDENCE 04/08/2018 ABEBA OBRIEN YARD LABOR SUPERVISOR Ot Z90.89 ACQUIRED ABSENCE OF OTHER ORGANS 04/08/2018 ABEBA OBRIEN YARD LABOR SUPERVISOR Ot Z95.5 PRESENCE OF CORONARY ANGIOPLASTY IMPLANT 04/08/2018 ABEBA OBRIEN YARD LABOR SUPERVISOR Ot Z95.9 PRESENCE OF CARDIAC AND VASCULAR IMPLANT 04/08/2018 ABEBA OBRIEN YARD LABOR SUPERVISOR Ot Z98.890 OTHER SPECIFIED POSTPROCEDURAL STATES 04/12/2018 JASIEL KENDRICK YARD LABOR SUPERVISOR Ot Z13.820 ENCOUNTER FOR SCREENING FOR OSTEOPOROSIS 04/12/2018 Ot 427.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 NEC 04/15/2018 SHAHEEN JIMÉNEZ Ot E03.9 HYPOTHYROIDISM, UNSPECIFIED 04/15/2018 SHAHEEN JIMÉNEZ Ot E11.59 TYPE 2 DIABETES MELLITUS WITH OTH CIRCUL 04/15/2018 SHAHEEN JIMÉNEZ Ot E78.00 PURE HYPERCHOLESTEROLEMIA, UNSPECIFIED 04/15/2018 SHAHEEN JIMÉNEZ Ot I10 ESSENTIAL (PRIMARY) HYPERTENSION 04/15/2018 SHAHEEN JIMÉNEZ Ot I25.10 ATHSCL HEART DISEASE OF [place] CORONARY 04/15/2018 SHAHEEN JIMÉNEZ Ot I73.9 PERIPHERAL VASCULAR DISEASE, UNSPECIFIED 04/15/2018 SHAHEEN JIMÉNEZ Ot M25.512 PAIN IN LEFT SHOULDER 04/15/2018 SHAHEEN JIMÉNEZ Ot R40.2142 COMA SCALE, EYES OPEN, SPONTANEOUS, EMR 04/15/2018 SHAHEEN JIMÉNEZ Ot R40.2252 COMA SCALE, BEST VERBAL RESPONSE, ORIENT 04/15/2018 SHAHEEN JIMÉNEZ Ot R40.2362 COMA SCALE, BEST MOTOR RESPONSE, OBEYS C 04/15/2018 SHAHEEN JIMÉNEZ Ot S00.83XA CONTUSION OF OTHER PART OF HEAD, INITIAL 04/15/2018 SHAHEEN JIMÉNEZ Ot S09.90XA UNSPECIFIED INJURY OF HEAD, INITIAL ENCO 04/15/2018 SHAHEEN JIMÉNEZ Ot S40.012A CONTUSION OF LEFT SHOULDER, INITIAL ENCO 04/15/2018 SHAHEEN JIMÉNEZ Ot S50.02XA CONTUSION OF LEFT ELBOW, INITIAL ENCOUNT 04/15/2018 SHAHEEN JIMÉNEZ Ot W01.0XXA FALL SAME LEV FROM SLIP/TRIP W/O STRIKE 04/15/2018 SHAHEEN JIMÉNEZ Ot Y92.[address] OF OCCURRENCE OF T 04/15/2018 SHAHEEN JIMÉNEZ Ot Z79.02 DATA TRANSCRIBER (CURRENT) USE OF ANTITHROMBOTI 04/15/2018 SHAHEEN JIMÉNEZ Ot Z79.52 DATA TRANSCRIBER (CURRENT) USE OF SYSTEMIC STER 04/15/2018 SHAHEEN JIMÉNEZ Ot Z79.82 DATA TRANSCRIBER (CURRENT) USE OF ASPIRIN 04/15/2018 SHAHEEN JIMÉNEZ Ot Z80.51 FAMILY HISTORY OF MALIGNANT NEOPLASM OF 04/15/2018 SHAHEEN JIMÉNEZ Ot Z80.8 FAMILY HISTORY OF MALIGNANT NEOPLASM OF 04/15/2018 SHAHEEN JIMÉNEZ Ot Z82.49 FAMILY HX OF ISCHEM HEART DIS AND OTH DI 04/15/2018 SHAHEEN JIMÉNEZ Ot Z87.448 PERSONAL HISTORY OF OTHER DISEASES OF UR 04/15/2018 SHAHEEN JIMÉNEZ Ot Z87.891 PERSONAL HISTORY OF NICOTINE DEPENDENCE 04/15/2018 SHAHEEN JIMÉNEZ Ot Z88.2 ALLERGY STATUS TO SULFONAMIDES STATUS 04/15/2018 SHAHEEN JIMÉNEZ Ot Z90.89 ACQUIRED ABSENCE OF OTHER ORGANS 04/15/2018 SHAHEEN JIMÉNEZ Ot Z95.5 PRESENCE OF CORONARY ANGIOPLASTY IMPLANT 04/15/2018 SHAHEEN JIMÉNEZ Ot Z95.9 PRESENCE OF CARDIAC AND VASCULAR IMPLANT 04/15/2018 SHAHEEN JIMÉNEZ Ot Z98.890 OTHER SPECIFIED POSTPROCEDURAL STATES 04/18/2018 SHAHEEN JIMÉNEZ Ot E03.9 HYPOTHYROIDISM, UNSPECIFIED 04/18/2018 SHAHEEN JIMÉNEZ Ot E11.59 TYPE 2 DIABETES MELLITUS WITH OTH CIRCUL 04/18/2018 SHAHEEN JIMÉNEZ Ot E78.00 PURE HYPERCHOLESTEROLEMIA, UNSPECIFIED 04/18/2018 RUSSEL JIMÉNEZIS Ot I10 ESSENTIAL (PRIMARY) HYPERTENSION 04/18/2018 RUSSEL JIMÉNEZIS Ot I25.10 ATHSCL HEART DISEASE OF [place] CORONARY 04/18/2018 SHAHEEN JIMÉNEZ Ot I73.9 PERIPHERAL VASCULAR DISEASE, UNSPECIFIED 04/18/2018 SHAHEEN JIMÉNEZ Ot M25.512 PAIN IN LEFT SHOULDER 04/18/2018 SHAHEEN JIMÉNEZ Ot R40.2142 COMA SCALE, EYES OPEN, SPONTANEOUS, EMR 04/18/2018 SHAHEEN JIMÉNEZ Ot R40.2252 COMA SCALE, BEST VERBAL RESPONSE, ORIENT 04/18/2018 SHAHEEN JIMÉNEZ Ot R40.2362 COMA SCALE, BEST MOTOR RESPONSE, OBEYS C 04/18/2018 SHAHEEN JIMÉNEZ Ot S00.83XA CONTUSION OF OTHER PART OF HEAD, INITIAL 04/18/2018 SHAHEEN JIMÉNEZ Ot S09.90XA UNSPECIFIED INJURY OF HEAD, INITIAL ENCO 04/18/2018 SHAHEEN JIMÉNEZ Ot S40.012A CONTUSION OF LEFT SHOULDER, INITIAL ENCO 04/18/2018 SHAHEEN JIMÉNEZ Ot S50.02XA CONTUSION OF LEFT ELBOW, INITIAL ENCOUNT 04/18/2018 SHAHEEN JIMÉNEZ Ot W01.0XXA FALL SAME LEV FROM SLIP/TRIP W/O STRIKE 04/18/2018 SHAHEEN JIMÉNEZ Ot Y92.[address] OF OCCURRENCE OF T 04/18/2018 SHAHEEN JIMÉNEZ Ot Z79.02 DATA TRANSCRIBER (CURRENT) USE OF ANTITHROMBOTI 04/18/2018 SHAHEEN JIMÉNEZ Ot Z79.52 DATA TRANSCRIBER (CURRENT) USE OF SYSTEMIC STER 04/18/2018 SHAHEEN JIMÉNEZ Ot Z79.82 HALF-WAY (CURRENT) USE OF ASPIRIN 04/18/2018 SHAHEEN JIMÉNEZ Ot Z80.51 FAMILY HISTORY OF MALIGNANT NEOPLASM OF 04/18/2018 SHAHEEN JIMÉNEZ Ot Z80.8 FAMILY HISTORY OF MALIGNANT NEOPLASM OF 04/18/2018 SHAHEEN JIMÉNEZ Ot Z82.49 FAMILY HX OF ISCHEM HEART DIS AND OTH DI 04/18/2018 SHAHEEN JIMÉNEZ Ot Z87.448 PERSONAL HISTORY OF OTHER DISEASES OF UR 04/18/2018 SHAHEEN JIMÉNEZ Ot Z87.891 PERSONAL HISTORY OF NICOTINE DEPENDENCE 04/18/2018 SHAHEEN JIMÉNEZ Ot Z88.2 ALLERGY STATUS TO SULFONAMIDES STATUS 04/18/2018 SHAHEEN JIMÉNEZ Ot Z90.89 ACQUIRED ABSENCE OF OTHER ORGANS 04/18/2018 SHAHEEN JIMÉNEZ Ot Z95.5 PRESENCE OF CORONARY ANGIOPLASTY IMPLANT 04/18/2018 SHAHEEN JIMÉNEZ Ot Z95.9 PRESENCE OF CARDIAC AND VASCULAR IMPLANT 04/18/2018 SHAHEEN JIMÉNEZ Ot Z98.890 OTHER SPECIFIED POSTPROCEDURAL STATES Procedures Code Description [place] [address] BIOPSY SKIN LESION 06/05/2012 00.40 PROCEDURE ON SINGLE VESSEL 04/01/2013 38.12 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 04/01/2013 Results Test Result Range Liver function panel (serum or plasma alk phos, alb, total and direct bili, total protein, ALT, AST) - 06/16/16 12:15 Serum or plasma total bilirubin measurement (mass/volume) 0.4 mg/dL 0.1-1.0 Serum or plasma alkaline phosphatase measurement (enzymatic activity/volume) 48 U/L 40-136 Serum or plasma aspartate aminotransferase measurement (enzymatic activity/volume) 13 U/L 5-34 Serum or plasma alanine aminotransferase measurement (enzymatic activity/volume) 13 U/L 0-55 Serum or plasma protein measurement (mass/volume) 6.9 g/dL 6.4-8.2 Serum or plasma albumin measurement (mass/volume) 4.3 g/dL 3.2-4.5 Bilirubin direct 0.1 mg/dL 0.0-0.3 Serum or plasma indirect bilirubin measurement (mass/volume) 0.3 mg/dL [facility] Lipid 1996 panel - 06/16/16 12:15 Serum or plasma triglyceride measurement (mass/volume) 317 mg/dL <150 Serum or plasma cholesterol measurement (mass/volume) 289 mg/dL < 200 Serum or plasma cholesterol in HDL measurement (mass/volume) 43 mg/dL 40-60 Cholesterol in LDL [mass/volume] in serum or plasma by direct assay 194 mg/dL 1-129 Serum or plasma cholesterol in VLDL measurement (mass/volume) 63 mg/dL 5-40 Automated blood complete blood count (hemogram) [...] Automated erythrocyte mean corpuscular hemoglobin concentration measurement (mass/volume) 34 g/dL 32-36 Automated erythrocyte distribution width ratio 15.7 % 10.0- 14.5 Automated blood platelet count (count/volume) 250 10*3/uL [...] NRG Serum or plasma glucose measurement (mass/volume) 110 mg/dL 70-105 Serum or plasma calcium measurement (mass/volume) 9.8 mg/dL 8.5-10.1 Serum or plasma total bilirubin measurement (mass/volume) 0.5 mg/dL 0.1-1.0 Serum or plasma alkaline phosphatase measurement (enzymatic activity/volume) 47 U/L 40-136 Serum or plasma aspartate aminotransferase measurement (enzymatic activity/volume) 13 U/L 5-34 Serum or plasma alanine aminotransferase measurement (enzymatic activity/volume) 13 U/L 0-55 Serum or plasma protein measurement (mass/volume) 6.9 g/dL 6.4-8.2 Serum or plasma albumin measurement (mass/volume) 4.3 g/dL 3.2-4.5 Methicillin resistant Staphylococcus aureus (MRSA) screening culture - 06/27/16 09:03 Methicillin resistant Staphylococcus aureus (MRSA) screening culture NEG NRG Complete blood count (CBC) with automated white [...] Automated erythrocyte mean corpuscular hemoglobin concentration measurement (mass/volume) 34 g/dL 32-36 Automated erythrocyte distribution width ratio 15.6 % 10.0- 14.5 Automated blood platelet count (count/volume) 220 10*3/uL [...] Blood monocytes automated count (number/volume) 0.8 10*3 0.0- 1.0 Automated eosinophil count 0.3 10*3/uL 0.0-0.3 Automated [...] gravity of urine by test strip 1.010 1.016-1.022 Urine protein assay by test strip, semi-quantitative [...] sediment leukocyte count by microscopy (number/high power field) NONE NRG Bacteria detection in urine sediment by light microscopy NEGATIVE NRG Squamous epithelial cells detection in urine sediment by light microscopy 2-5 NRG Crystals detection in urine sediment by light microscopy NONE NRG Casts detection in urine sediment by light microscopy NONE NRG Mucus detection in urine sediment by light microscopy NEGATIVE NRG Complete urinalysis with reflex to culture NO NRG Complete blood count (CBC) with automated white [...] Automated erythrocyte mean corpuscular hemoglobin concentration measurement (mass/volume) 34 g/dL 32-36 Automated erythrocyte distribution width ratio 16.3 % 10.0- 14.5 Automated blood platelet count (count/volume) 210 10*3/uL [...] Blood monocytes automated count (number/volume) 0.9 10*3 0.0- 1.0 Automated eosinophil count 0.4 10*3/uL 0.0-0.3 Automated [...] Serum or plasma aspartate aminotransferase measurement (enzymatic activity/volume) 15 U/L 5-34 Serum or plasma alanine aminotransferase measurement (enzymatic activity/volume) 12 U/L 0-55 Serum or plasma protein measurement (mass/volume) 7.1 g/dL 6.4-8.2 Serum or plasma albumin measurement (mass/volume) 3.9 g/dL 3.2-4.5 Magnesium - 10/14/16 15:16 Magnesium 1.5 mg/dL 1.8-2.4 CMP - 03/06/17 11:01 Glucose, Serum 102 [...] Serum or plasma aspartate aminotransferase measurement (enzymatic activity/volume) 20 U/L 5-34 Serum or plasma alanine aminotransferase measurement (enzymatic activity/volume) 19 U/L 0-55 Serum or plasma protein measurement (mass/volume) 7.5 g/dL 6.4-8.2 Serum or plasma albumin measurement (mass/volume) 4.5 g/dL 3.2-4.5 Lipid 1996 panel - 04/18/17 06:53 Serum or plasma triglyceride measurement (mass/volume) 166 mg/dL <150 Serum or plasma cholesterol measurement (mass/volume) 249 mg/dL < 200 Serum or plasma cholesterol in HDL measurement (mass/volume) 53 mg/dL 40-60 Cholesterol in LDL [mass/volume] in serum or plasma by direct assay 166 mg/dL 1-129 Serum or plasma cholesterol in VLDL measurement (mass/volume) 33 mg/dL 5-40 SUREPATH PAP AND HPV mRNA E6/E7 - 11/19/17 10:43 CLINICAL INFORMATION: NR LMP: 50 NRG PREV. PAP: NRG PREV. BX: NRG SOURCE: [employer]ervix NR STATEMENT OF ADEQUACY: NR INTERPRETATION/RESULT: NR LICENSED HOME INSPECTOR: NRG HPV mRNA E6/E7, SUREPATH VIAL Not Detected NOT DETECTED COMMENT NRG CULTURE, GENITAL - 11/19/17 10:43 CULTURE, GENITAL SEE NOTE NRG Complete blood count (CBC) with automated white blood cell (WBC) differential - 04/05/18 21:25 Blood leukocytes automated count (number/volume) 7.8 10*3/uL 4.3-11.0 Blood erythrocytes automated count (number/volume) 4.68 10*6/uL 4.35-5.85 Venous blood hemoglobin measurement (mass/volume) 12.2 g/dL 11.5-16.0 Blood hematocrit (volume fraction) 36 % 35-52 Automated erythrocyte mean corpuscular volume 78 [foz_us] 80-99 Automated erythrocyte mean corpuscular hemoglobin (mass per erythrocyte) 26 pg 25-34 Automated erythrocyte mean corpuscular hemoglobin concentration measurement (mass/volume) 34 g/dL 32-36 Automated erythrocyte distribution width ratio 15.8 % 10.0- 14.5 Automated blood platelet count (count/volume) 229 10*3/uL 130-400 Automated blood platelet mean volume measurement 11.1 [foz_us] 7.4-10.4 Automated blood neutrophils/100 leukocytes 54 % 42-75 Automated blood lymphocytes/100 leukocytes 31 % 12-44 Blood monocytes/100 leukocytes 10 % 0-12 Automated blood eosinophils/100 leukocytes 4 % 0-10 Automated blood basophils/100 leukocytes 1 % 0-10 Blood neutrophils automated count (number/volume) 4.2 10*3 1.8-7.8 Blood lymphocytes automated count (number/volume) 2.4 10*3 1.0-4.0 Blood monocytes automated count (number/volume) 0.7 10*3 0.0- 1.0 Automated eosinophil count 0.3 10*3/uL 0.0-0.3 Automated blood basophil count (count/volume) 0.1 10*3/uL 0.0-0.1 Whole blood basic metabolic panel - 04/05/18 21:25 Serum or plasma sodium measurement (moles/volume) 141 mmol/L 135-145 Serum or plasma potassium measurement (moles/volume) 3.5 mmol/L 3.6-5.0 Serum or plasma chloride measurement (moles/volume) 105 mmol/L 98-107 Carbon dioxide 25 mmol/L 21-32 Serum or plasma anion gap determination (moles/volume) 11 mmol/L 5-14 Serum or plasma urea nitrogen measurement (mass/volume) 19 mg/dL 7-18 Serum or plasma creatinine measurement (mass/volume) 0.76 mg/dL 0.60-1.30 Serum or plasma urea nitrogen/creatinine mass ratio 25 NRG Serum or plasma creatinine measurement with calculation of estimated glomerular filtration rate > NRG Serum or plasma glucose measurement (mass/volume) 137 mg/dL 70-105 Serum or plasma calcium measurement (mass/volume) 9.8 mg/dL 8.5-10.1 Complete urinalysis with reflex to culture - 04/05/18 21:38 Urine color determination YELLOW NRG Urine clarity determination CLEAR NRG Urine pH measurement by test strip 7 5-9 Specific gravity of urine by test strip 1.005 1.016-1.022 Urine protein assay by test strip, semi-quantitative [...] NORMAL Urine leukocyte esterase detection by dipstick NEGATIVE NEGATIVE Automated urine sediment erythrocyte count by microscopy (number/high power field) NONE NRG Automated urine sediment leukocyte count by microscopy (number/high power field) NONE NRG Bacteria detection in urine sediment by light microscopy NEGATIVE NRG Crystals detection in urine sediment by light microscopy NONE NRG Casts detection in urine sediment by light microscopy NONE NRG Mucus detection in urine sediment by light microscopy NEGATIVE NRG Complete urinalysis with reflex to culture NO NRG LIPID PANEL - 09/26/18 10:03 CHOLESTEROL, TOTAL 186 mg/dL <200 HDL CHOLESTEROL 55 mg/dL >50 TRIGLYCERIDES 221 mg/dL <150 LDL-CHOLESTEROL 98 mg/dL (calc) NRG CHOL/HDLC RATIO 3.4 (calc) <5.0 NON HDL CHOLESTEROL 131 mg/dL (calc) <130 CMP - 09/26/18 10:03 GLUCOSE 190 mg/dL 65-99 UREA NITROGEN (BUN) 15 mg/dL 7-25 CREATININE 0.68 mg/dL 0.50-0.99 eGFR NON-AFR. ETHIOPIAN 92 mL/min/1.73m2 > OR=60 eGFR 106 mL/min/1.73m2 > OR=60 BUN/CREATININE RATIO NOT APPLICABLE (calc) 6-22 SODIUM 142 mmol/L 135-146 POTASSIUM 4.0 mmol/L 3.5-5.3 CHLORIDE 105 mmol/L 98-110 CARBON DIOXIDE 29 mmol/L 20-32 CALCIUM 9.8 mg/dL 8.6-10.4 PROTEIN, TOTAL 6.8 g/dL 6.1-8.1 ALBUMIN 4.3 g/dL 3.6-5.1 GLOBULIN 2.5 g/dL (calc) 1.9-3.7 ALBUMIN/GLOBULIN RATIO 1.7 (calc) 1.0-2.5 BILIRUBIN, TOTAL 0.8 mg/dL 0.2-1.2 ALKALINE PHOSPHATASE 50 U/L 33-130 AST 12 U/L 10-35 ALT 8 U/L 6-29 TSH - 09/26/18 10:03 TSH 0.72 mIU/L 0.40-4.50 Methicillin resistant Staphylococcus aureus (MRSA) screening culture - 10/03/18 12:20 MRSA SCREEN RESULT MRSA ISOLATED NRG Encounters ACCT No. Visit Date/Time Discharge Status Pt. Type Provider Facility Loc./Unit Complaint [id number] 06/05/2012 10:54:00 06/05/2012 23:59:59 CLS Outpatient SALONI QUINN DO [id number] 05/28/2012 09:59:00 05/28/2012 23:59:59 CLS Outpatient SALONI QUINN DO [id number] 10/03/2018 11:53:00 10/03/2018 12:27:00 DIS Outpatient FLORECITA BROWN DO [facility] PREOP MASS RIGHT BACK, MALFUNCTIONING LINQ [id number] 09/29/2018 14:41:00 09/29/2018 23:59:59 CLS Preadmit KATHRIN MCGUIRE [facility] RAD CAD, CHEST PAIN [id number] 04/12/2018 10:51:00 04/12/2018 12:37:00 DIS Outpatient SHAHEEN JIMÉNEZ [facility] ER FALL LAST NIGHT/PAIN ALL OVER [id number] 04/05/2018 19:49:00 04/05/2018 22:03:00 DIS Emergency ABEBA OBRIEN [employer] [facility] ER WEAKNESS,LETHARGY [id number] 03/17/2018 14:31:00 03/17/2018 23:59:59 CLS Outpatient JASIEL KENDRICK YARD LABOR SUPERVISOR [facility] RAD SCREENING [id number] 11/28/2017 09:10:00 11/28/2017 23:59:59 CLS Outpatient JASIEL KENDRICK YARD LABOR SUPERVISOR [facility] RAD SCREENING FOR OSTEOPOROSIS [id number] 07/25/2017 23:36:00 07/26/2017 00:06:00 DIS Emergency BRUEGGEMANN MD, BING Cabrera [facility] ER LEFT LEG RASH,RT LEG THROBBING [id number] 04/18/2017 06:44:00 04/18/2017 23:59:59 CLS Outpatient MADL, SAKSHI L MANAGER STRATEGY & ACCOUNT [facility] RAD I77.9 BILATERAL CAROTID ARTERY DISEASE [id number] 04/18/2017 06:44:00 04/18/2017 23:59:59 CLS Outpatient BOBBI LEWIS MD [facility] LAB I25.10,R07.89,E78.2,I10,R60.0 [id number] 03/11/2017 13:55:00 03/11/2017 23:59:59 CLS Outpatient MADL, SAKSHI L MANAGER STRATEGY & ACCOUNT [facility] RAD Z12.31 SCREENING BREAST EXAM [id number] 10/30/2016 10:06:00 10/30/2016 23:59:59 CLS Outpatient MADL, SAKSHI L MANAGER STRATEGY & ACCOUNT [facility] RAD DIZZINESS R42 [id number] 10/14/2016 14:40:00 10/14/2016 16:11:00 DIS Emergency LORI ROJO, TANJA Bradford [facility] ER BILAT HAND NUMBNESS/LEG WEAKNESS [id number] 08/28/2016 15:53:00 08/28/2016 23:59:59 CLS Outpatient MADL, SAKSHI L MANAGER STRATEGY & ACCOUNT [facility] RAD M47.22 [id number] 07/21/2016 18:14:00 07/21/2016 20:46:00 DIS Emergency ABEBA OBRIEN APRN [facility] ER BACK AND LEG PAIN [id number] 07/21/2016 15:27:00 07/21/2016 17:06:00 DIS Emergency MEKHI VIEYRA MD [facility] ER HAND NUMBNESS, LOWER BACK PAIN [id number] 06/27/2016 08:10:00 06/27/2016 17:43:00 DIS Outpatient BOBBI LEWIS MD [facility] CATH CP,DYSPNEA,CAD [id number] 06/16/2016 12:06:00 06/16/2016 23:59:59 CLS Outpatient KATHRIN MCGUIRE [facility] LAB HYPERLIPIDEMIA, MIXED [id number] 05/02/2016 14:34:00 05/02/2016 19:30:00 DIS Emergency DOLORES CRUZ [facility] ER RASH [id number] 04/05/2016 18:02:00 04/05/2016 19:09:00 DIS Emergency DOLORES CRUZ [facility] ER RASH L LEG [id number] 03/07/2016 18:07:00 03/07/2016 19:52:00 DIS Emergency BING LAM MD [facility] ER "NOT FEELING WELL";DIARRHEA [id number] 02/08/2016 11:05:00 02/08/2016 23:59:59 CLS Outpatient KATHRIN MCGUIRE [facility] CARD CAD,CHEST PAIN,HTN,HLP [id number] 02/04/2016 20:17:00 02/04/2016 21:01:00 DIS Emergency ELMO MALDONADO PEDRO Makenna [facility] ER BODY RASH, ITCHING [id number] 01/24/2016 08:47:00 01/24/2016 23:59:59 CLS Outpatient KATHRIN MCGUIRE [facility] CARD CAD,CHEST PAIN,HLP,HTN [id number] 01/19/2016 09:40:00 01/19/2016 23:59:59 CLS Outpatient DANIELLA GONZALEZ DO [facility] RAD SCREENING [id number] 12/26/2015 12:10:00 12/26/2015 23:59:59 CLS Outpatient KATHRIN MCGUIRE [facility] LAB ATHEROSCLEROTIC HEART DISEASE [id number] 12/26/2015 12:04:00 12/26/2015 23:59:59 CLS Outpatient DANIELLA GONZALEZ DO [facility] LAB HYPOTHYROID [id number] 11/30/2015 09:28:00 11/30/2015 23:59:59 CLS Outpatient DANIELLA GONZALEZ DO [facility] LAB HYPERLIPIDEMIA,HYPERTHYROID [id number] 11/19/2015 14:31:00 11/19/2015 15:24:00 DIS Emergency DOLORES CRUZ [facility] ER L LEG RASH [id number] 10/07/2015 22:08:00 10/07/2015 23:31:00 DIS Emergency TANJA SANDOVAL MD [facility] ER CHEST HURTING;HEADACHE;NAUSEA [id number] 10/06/2015 08:41:00 10/06/2015 23:59:59 CLS Outpatient JOSHUA ROJO, BOBBI Olivera [facility] LAB CAD,CHEST PAIN,DYSPNEA,HTN,HYPERLIPIDEMIA [id number] 06/23/2015 07:34:00 06/23/2015 23:59:59 CLS Outpatient DANIELLA GONZALEZ DO [facility] LAB SOB,HTN [id number] 06/03/2015 00:04:00 06/03/2015 01:01:00 DIS Emergency CHAYITO MALDONADO KORIN Batista [facility] ER LEFT INDEX FINGER LAC [id number] 04/05/2015 19:16:00 04/05/2015 20:35:00 DIS Emergency PEDRO BORREGO DO Makenna [facility] ER LEFT FOOT PAIN [id number] 02/07/2015 13:14:00 02/07/2015 23:59:59 CLS Outpatient DANIELLA GONZALEZ DO [facility] LAB SYNCOPE,DIABETES [id number] 02/04/2015 22:59:00 02/05/2015 01:27:00 DIS Emergency GENARO ROJO, BING Cabrera [facility] ER RIGHT HAND INJURY [id number] 01/03/2015 07:20:00 01/03/2015 23:59:59 CLS Outpatient KATHRIN MCGUIRE [facility] CARD BRADYCARDIA,CAD,HLP [id number] 12/20/2014 15:27:00 12/20/2014 23:59:59 CLS Outpatient DANIELLA GONZALEZ DO [facility] RAD SCREENING [id number] 12/02/2014 14:57:00 12/02/2014 23:59:59 CLS Outpatient DANIELLA GONZALEZ DO Suzette [facility] LAB HYPOTHYROID,DIABETES [id number] 12/02/2014 07:37:00 12/02/2014 23:59:59 CLS Outpatient KATHRIN MCGUIRE [facility] CARD CAD,HLP,BRADYCARDIA [id number] 11/14/2014 23:50:00 11/15/2014 01:28:00 DIS Emergency MEKHI VIEYRA MD [facility] ER VOMITING [id number] 10/06/2014 10:59:00 10/06/2014 13:14:00 DIS Emergency PEDRO BORREGO DO [facility] ER LEFT SIDE BURNING [id number] 09/11/2014 16:02:00 09/11/2014 18:02:00 DIS Emergency ABEBA OBRIEN APRN [facility] ER RASH [id number] 09/08/2014 12:42:00 09/08/2014 14:26:00 DIS Emergency DOLORES CRUZ [facility] ER RASH [id number] 08/27/2014 11:02:00 08/27/2014 12:10:00 DIS Emergency ABEBA OBRIEN APRN [facility] ER LEFT FLANK PAIN [id number] 08/15/2014 12:37:00 08/15/2014 13:53:00 DIS Emergency ABEBA OBRIEN YARD LABOR SUPERVISOR [facility] ER RASH [id number] 08/14/2014 21:09:00 08/14/2014 22:36:00 DIS Emergency PEDRO BORREGO DO [facility] ER RASH ALL OVER BODY [id number] 04/21/2014 12:06:00 04/21/2014 23:59:59 CLS Outpatient BOBBI LEWIS MD [facility] CATH BRADYCARDIA,NEAR SYNCOPE [id number] 04/16/2014 21:22:00 04/17/2014 00:57:00 DIS Emergency BING LAM MD [facility] ER FALL [id number] 01/08/2014 09:31:00 01/08/2014 12:55:00 DIS Emergency BING LAM MD [facility] ER DIZZINESS/LIP NUMBNESS [id number] 12/17/2013 09:49:00 12/17/2013 23:59:59 CLS Outpatient DANIELLA GONZALEZ DO [facility] RAD SCREENING [id number] 12/01/2013 21:45:00 12/04/2013 10:15:00 DIS Inpatient DANIELLA GONZALEZ DO [facility] 4TH VERTIGO,HYPOTENSION,DIARRHEA [id number] 11/15/2013 15:02:00 11/15/2013 23:59:59 CLS Outpatient DANIELLA GONZALEZ DO [facility] LAB DIABETES [id number] 11/15/2013 15:19:00 11/15/2013 16:32:00 DIS Emergency ABBEA OBRIEN APRN [facility] ER VOMITING [id number] 10/29/2013 20:59:00 10/29/2013 22:45:00 DIS Emergency CHAYITO MALDONADO KORIN Lester [facility] ER DIZZINESS [id number] 10/14/2013 08:22:00 10/14/2013 23:59:59 CLS Outpatient KATHRIN MCGUIRE [facility] CARD BRADYCARDY,CAD,DM,HLP [id number] 09/08/2013 21:47:00 09/10/2013 17:40:00 DIS Inpatient DANIELLA GONZALEZ DO [facility] 4TH TIA/CHEST PAIN [id number] 08/30/2013 09:29:00 08/30/2013 23:59:59 CLS Outpatient KATHRIN MCGUIRE [facility] LAB HYPERLIPIDEMIA [id number] 04/01/2013 11:06:00 04/02/2013 17:50:00 DIS Inpatient RENATO MACE MD [facility] ICU LEFT CAROTID STENOSIS [id number] 03/30/2013 09:41:00 03/30/2013 23:59:59 CLS Outpatient RENATO MACE MD [facility] PREOP LEFT CAROTID STENOSIS [id number] 03/09/2013 06:42:00 03/09/2013 13:00:00 DIS Outpatient BOBBI LEWIS MD [facility] CATH ABNORMAL STRESS, CP CAD,HTN,HLP [id number] 03/04/2013 10:21:00 03/04/2013 23:59:59 CLS Outpatient BOBBI LEWIS MD [facility] CARD CP,CAD,HLP,HTN [id number] 03/03/2013 13:05:00 03/03/2013 23:59:59 CLS Outpatient BOBBI LEWIS MD [facility] LAB CP,DIABETES,CAD,HYPERLIPIDEMIA [id number] 02/22/2013 17:30:00 02/22/2013 21:50:00 DIS Emergency PEDRO BORREGO DO [facility] ER VOMITTING,BLACK OUTS [id number] 12/17/2012 23:49:00 12/18/2012 01:31:00 DIS Emergency PEDRO BORREGO DO [facility] ER LFT SHOULDER PAIN [id number] 11/27/2012 14:29:00 11/27/2012 23:59:59 CLS Outpatient DANIELLA GONZALEZ DO [facility] RAD SCREENING [id number] 10/04/2012 16:01:00 10/04/2012 20:56:00 DIS Emergency MEKHI VIEYRA MD [facility] ER BOTH ARMS ARE NUMB [id number] 10/08/2018 08:35:00 PEN Preadmit FLORECITA BROWN DO [facility] SDC MASS RIGHT BACK, MALFUNCTIONING LINQ [id number] 03/31/2015 08:23:00 Document Registration [id number] 02/19/2015 22:08:00 Document Registration [id number] 04/17/2014 01:05:00 Document Registration [id number] 10/23/2012 11:00:00 Document Registration [id number] 07/24/2012 10:48:00 Document Registration [id number] 05/19/2012 10:22:00 Document Registration [id number] 03/17/2012 11:55:00 Document Registration [id number] 03/14/2012 08:14:00 Document Registration [id number] 02/29/2012 21:19:00 Document Registration [id number] 02/06/2012 17:56:00 Document Registration [id number] 01/20/2012 20:04:00 Document Registration [id number] 01/14/2012 08:51:00 Document Registration [id number] 11/26/2011 13:08:00 Document Registration [id number] 10/09/2011 08:14:00 Document Registration [id number] 09/28/2011 07:21:00 Document Registration [id number] 06/10/2011 19:01:00 Document Registration [id number] 05/10/2011 19:33:00 Document Registration [id number] 04/09/2011 09:11:00 Document Registration [id number] 12/01/2010 08:10:00 Document Registration [id number] 11/24/2010 17:36:00 Document Registration [id number] 09/09/2010 12:43:00 Document Registration [id number] 07/31/2010 17:30:00 Document Registration [id number] 07/13/2010 10:14:00 Document Registration [id number] 07/10/2010 07:19:00 Document Registration [id number] 06/10/2010 16:55:00 Document Registration [id number] 06/08/2010 08:43:00 Document Registration [id number] 06/07/2010 08:34:00 Document Registration [id number] 05/10/2010 16:53:00 Document Registration [id number] 04/14/2010 21:16:00 Document Registration [id number] 10/04/2018 12:40:00 10/04/2018 23:59:59 [facility] Outpatient JASIEL KENDRICK [facility] [id number] 09/26/2018 09:20:00 Document Registration [id number] 11/19/2017 10:00:00 Document Registration [id number] 03/06/2017 10:20:00 Document Registration
[2018-10-08] MEDS ORDERED: MUPIROCIN 2% OINT 22 GM (BACTROBAN) TUBE ONE (07:19)
[2018-10-08] MEDS ORDERED: ANCEF 2 GM/NS 50 ML IVPB IV ONE (07:30)
[2018-10-08] MEDS ORDERED: proPOfol 200 MG/20 ML (DIPRIVAN) VIAL IV ONE (07:32)
[2018-10-08] MEDS ORDERED: LIDOCAINE PF 2% 5 ML (XYLOCAINE) VIAL ONE (07:32)
[2018-10-08] MEDS ORDERED: fentaNYL INJECTION 100 MCG/2 ML AMP ONE (07:32)
[2018-10-08] MEDS ORDERED: SEVOFLURANE (ULTANE) 15 ML INHAL SOLN ONE ×2 (07:32→11:16)
[2018-10-08] MEDS ORDERED: ONDANSETRON 4 MG/2 ML (SDV) Z0FRAN ONE (07:32)
[2018-10-08] MEDS ORDERED: MIDAZOLAM 2 MG/2 ML (VERSED) VIAL ONE (07:32)
[2018-10-08] MEDS ORDERED: LACTATED RINGERS 1,000 ML IV PRN (08:11)
[2018-10-08] MEDS ORDERED: ceFAZolin 2 GM/50 ML NS 50 ML IV ONE (08:15)
[2018-10-08] MEDS ORDERED: MUPIROCIN 2% OINT 22 GM (BACTROBAN) TUBE TOP SCH (09:00)
--- NOTE | 2018-10-08 09:19 | Progress Note-Pre Operative ---
Pre-Operative Progress Note H&P Reviewed The H&P was reviewed, patient examined and no changes noted. Time Seen by Provider: 09:17 Date H&P Reviewed: October 08, 2018 Time H&P Reviewed: 09:18 Pre-Operative Diagnosis: Right back mass, FLORECITA Sidhu DO October 08, 2018 09:19
[2018-10-08] MEDS ORDERED: LIDOCAINE 1% INJ 20 ML 20 ML VIAL ONE (10:16)
[2018-10-08] MEDS ORDERED: BUP/EPI 0.5% 1:200,000 (SENSORCAINE) 30 ML VIAL ONE (10:16)
[2018-10-08] MEDS ORDERED: ATROPINE INJ 0.4 MG/ML SDV ONE (11:00)
--- NOTE | 2018-10-08 11:26 | Progress Note-Post Operative ---
Post-Operative Progess Note Surgeon (s)/Customer Service Assistant (s) Surgeon FLORECITA BROWN DO Customer Service Assistant: none Pre-Operative Diagnosis Right back mass, Linq Post-Operative Diagnosis same pending path Procedure & Operative Findings Date of Procedure 10/08/18 Procedure Performed/Findings 1. Exc right back mass, 4.7cm incision through fascia on top of muscle\ 2. Removal of linq Anesthesia Type LMA Estimated Blood Loss Estimated blood loss (mL): scant Specimens/Packing Specimens Removed back mass linq FLORECITA BROWN DO October 08, 2018 11:26
[2018-10-08] MEDS ORDERED: ACHD5005 PO (11:27)
--- NOTE | 2018-10-08 11:28 | Discharge Inst-Surgical ---
Discharge Inst-Surgical Depart Medication/Instructions New, Converted or Re-Newed RX: RX Given to Pt/Family Patient Instructions Follow up Appt: Make appointment for 1 week. [phone] Instructions: No strenuous activity. May shower in 24 hours, no tub bath or soaking. Use incentive spirometer at home as directed. No Smoking Skin/Wound Care: May remove bandages in am. You need to leave the Dermabond on incision it will fall off on it's own. Symptoms to Report: Appetite Changes, Extremity Discoloration, Numbness/Tingling, Swelling Increased, Bleeding Excessive, Eyesight Changes, Pain Increased, Urine Color Yvonne nge, Constipation(Persistent), Fever over 101 degree F, Pain/Pressure in chest, Urinating Difficulty, Cough Up/Vomit Blood, Heart Beat Irreg/Pounding, Pain/Pressure in jaw, Cramps in feet or legs, Lightheadedness, Pain/Pressure in shoulder, Diarrhea(Persistent), Memory Changes Suddenly, Questions/Concerns, Weight gain consecutive days, Dizziness/Fainting, Nausea/Vomiting, Shortness of Breath, Weight gain over 2 pounds If questions or concerns contact your physician Or seek help at emergency department. Activity Activity as Tolerated: Yes Activity Instructions: Avoid Stress to Incision Driving Instructions: No Driving/Refer to Dr. Samson Discharge Diet: No Restrictions Diet After 24 Hours: Clear Liquid if Nauseous If Any Problems/Questions/Issu: Contact Your Physician, Go to Emergency Room Skin/Wound Care Infection Signs and Symptoms: Increased Redness, Foul Odor of Wound, Increased Drainage, Skin Itchy or Has a Rash, Increased Swelling, Temperature Above 101 F Bathing Instructions: Shower Stitches/Silverio/Dermabond Dis: FLORECITA Tompkins DO October 08, 2018 11:28
[2018-10-08] MEDS ORDERED: ONDANSETRON 4 MG/2 ML (SDV) Z0FRAN IVP PRN (11:45)
[2018-10-08] MEDS ORDERED: HYDROmorphone 2 MG/ML VIAL (DILAUDID) IV ONE (11:45)
[2018-10-08] MEDS ORDERED: morphine INJ 10 MG/ML 1ML (SYR OR VIAL) IVP ONE (11:45)
[2018-10-08] MEDS ORDERED: MEPERIDINE (DEMEROL) INJ 50 MG/ML IVP ONE (11:45)
--- NOTE | 2018-10-08 14:00 | NUR ---
HAS TAKEN PO FLUIDS WITHOUT PROBLEM AND HAS DENIED PAIN. DERMABOND INTACT TO RIGHT UPPER BACK AND LEFT CHEST SURGICAL SITES. HAS BEEN UP WITH ASSIST SEVERAL TIME TO BR TO VOID, GAIT STEADY. REQUESTING DISMISSAL.
--- NOTE | 2018-10-08 14:26 | Anesthesia-General Post-Op ---
General Patient Condition Mental Status/LOC: Same as Preop Cardiovascular: Satisfactory Nausea/Vomiting: Absent Respiratory: Satisfactory Pain: Controlled Complications: Absent Post Op Complications Complications None Follow Up Care/Instructions Patient Instructions None needed. Anesthesia/Patient Condition Patient Condition Patient was seen this morning after the procedure and she was doing well, no complaints, stable vital signs, no apparent adverse anesthesia problems. ROD LIGHT DO October 08, 2018 14:25
--- NOTE | 2018-10-08 14:33 | OPERATIVE REPORT ---
DATE OF SERVICE: PREOPERATIVE DIAGNOSES: 1. Right back mass. 2. LINQ. POSTOPERATIVE DIAGNOSES: 1. Right back mass. 2. LINQ. Pending pathology. PROCEDURE: 1. Excision of right back mass 4.7 cm incision down to the muscle under the fascia in the back. 2. Excision of LINQ. SURGEON: Romaine Hair DO. BIOINFORMATICS RESEARCH TECHNICIAN: None. ANESTHESIA: LMA. SPECIMEN: 1. Back mass. 2. LINQ. BLOOD LOSS: Scant. FLUIDS: Per anesthesia. POSTOPERATIVE CONDITION: Stable. INDICATION FOR PROCEDURE: The patient is a 63-year-old female who had a right back mass that she was causing pain, getting bigger, she wanted it removed. Also, she had a LINQ placed by cardiology and no longer needed that to get removed as well. FINDINGS: The patient had right back mass, was down under the fascia right on top of the muscle in the back, measured about 10 cm x 8 cm and the LINQ was removed. PROCEDURE NOTE: After informed consent was obtained, the patient was brought to the operating room, placed on the table in the supine position. She was sterilely prepped and draped in normal fashion. First decided to go up to the LINQ and so infiltrated the left anterior chest wall with local, made incision with #15 blade, carried down to skin and subcutaneous tissue, then able to palpate the LINQ, grasped with a hemostat and then carefully pulled this out. Once it was removed, then closed the incision with 4-0 undyed Monocryl, 2 interrupted subcuticular stitches. Area was cleaned and dried. Dermabond placed. The patient was then rotated into the left lateral decubitus position. She was then sterilely prepped and draped again, so we could remove the back mass. Made an incision about 4.7 cm long, first infiltrating the skin with local as well as around in a regional block, then incision made with a #15 blade down through the skin into subcutaneous tissue, then deepened down to subcutaneous tissue with blunt dissection as well as with Bovie electrocautery. This mass looked like a large lipoma, went all the way down under the fascia on top of the muscle, removed this with some blunt dissection as well as Bovie electrocautery, able to remove it en bloc and passed it off the table. Hemostasis obtained using Bovie electrocautery, then elected to close the incision, closing the deep tissue with 3-0 Vicryl, 2 interrupted sutures, then closed the skin with a 4-0 undyed Monocryl in running subcuticular fashion. Area was cleaned and dried. Dermabond placed as well as dressing. The patient then transferred to recovery room in stable condition. Sponge, instrument and needle count correct at the end of the case. Job ID: [id number] DocumentID: [id number] Dictated Date: 10/08/2018 11:23:29 Artificial Breast Fabricator Date: 10/08/2018 14:32:45 Dictated By: DO TEMITOPE BUI
== END 2018-10-08 14:00 | disposition home or self-care (01) ==
LOC: SDC 06:38
PROVIDERS: ATTEND Surgery
DX: D17.1 Benign lipomatous neoplasm of skin and subcutaneous tissue of trunk (principal); Z45.09 Encounter for adjustment and management of other cardiac device; I10 Essential (primary) hypertension; I25.10 Atherosclerotic heart disease of native coronary artery without angina pectoris; R07.9 Chest pain, unspecified; E11.9 Type 2 diabetes mellitus without complications; E78.5 Hyperlipidemia, unspecified; I65.23 Occlusion and stenosis of bilateral carotid arteries; E03.9 Hypothyroidism, unspecified; E66.09 Other obesity due to excess calories; M50.20 Other cervical disc displacement, unspecified cervical region; Z68.32 Body mass index [BMI] 32.0-32.9, adult; I73.9 Peripheral vascular disease, unspecified; G43.909 Migraine, unspecified, not intractable, without status migrainosus; K21.9 Gastro-esophageal reflux disease without esophagitis; M19.91 Primary osteoarthritis, unspecified site; Z88.2 Allergy status to sulfonamides; Z79.02 Long term (current) use of antithrombotics/antiplatelets; Z86.73 Personal history of transient ischemic attack (TIA), and cerebral infarction without residual deficits; Z79.82 Long term (current) use of aspirin; Z79.899 Other long term (current) drug therapy; Z95.5 Presence of coronary angioplasty implant and graft
CPT/HCPCS: 82962

== ENCOUNTER → 2018-10-14 | Outpatient (CLI) | payer MEDICARE, OTHER ==
[2018-10-14 11:50] LABS: ALANINE AMINOTRANSFERASE 11 U/L (0-55); ALBUMIN 4.4 GM/DL (3.2-4.5); ALKALINE PHOSPHATASE 56 U/L (40-136); BILIRUBIN,TOTAL 0.7 MG/DL (0.1-1.0); BUN/CREATININE RATIO 18; CALCIUM 10.5 MG/DL (8.5-10.1); CARBON DIOXIDE 28 MMOL/L (21-32); CHLORIDE 108 MMOL/L (98-107); CHOLESTEROL 166 MG/DL (< 200); CREATININE SERUM 0.74 MG/DL (0.60-1.30); GFR ESTIMATED > 60; GLUCOSE 111 MG/DL (70-105); HDL CHOLESTEROL 48 MG/DL (40-60); POTASSIUM 3.7 MMOL/L (3.6-5.0); SODIUM 145 MMOL/L (135-145); TOTAL PROTEIN 7.1 GM/DL (6.4-8.2); TRIGLYCERIDES 143 MG/DL (<150); VLDL CHOLESTEROL 29 MG/DL (5-40)
== END ==
LOC: RAD 10:41
PROVIDERS: ATTEND Physician Assistant
DX: I08.0 Rheumatic disorders of both mitral and aortic valves (principal); I25.10 Atherosclerotic heart disease of native coronary artery without angina pectoris; E11.9 Type 2 diabetes mellitus without complications; I10 Essential (primary) hypertension
CPT/HCPCS: 36415; 80053; 80061; 93306

== ENCOUNTER → 2019-11-03 | Outpatient (CLI) | payer MEDICARE ==
[~2019-11-03] MED LIST changes: -MECL-106 PO; +MECL-149 PO; -MOME15CR17 TP; +MOME15CR8 TP; -ROPI0.5T2 PO; +ROPI0.5T4 PO; -ROSU10TA27 PO; +ROSU10TA28 PO; -ROSU20TA31 PO; +ROSU20TA32 PO
[2019-11-03 11:12] LABS: ALANINE AMINOTRANSFERASE 10 U/L (0-55); ALBUMIN 4.5 GM/DL (3.2-4.5); ALKALINE PHOSPHATASE 65 U/L (40-136); BILIRUBIN,TOTAL 0.9 MG/DL (0.1-1.0); BUN/CREATININE RATIO 15; CALCIUM 9.9 MG/DL (8.5-10.1); CARBON DIOXIDE 27 MMOL/L (21-32); CHLORIDE 106 MMOL/L (98-107); CHOLESTEROL 168 MG/DL (< 200); CREATININE SERUM 0.79 MG/DL (0.60-1.30); GFR ESTIMATED > 60; GLUCOSE 99 MG/DL (70-105); HDL CHOLESTEROL 38 MG/DL (40-60); POTASSIUM 3.8 MMOL/L (3.6-5.0); SODIUM 142 MMOL/L (135-145); TOTAL PROTEIN 7.7 GM/DL (6.4-8.2); TRIGLYCERIDES 325 MG/DL (<150); VLDL CHOLESTEROL 65 MG/DL (5-40)
== END ==
LOC: CARD 10:32
PROVIDERS: ATTEND Internal Medicine Cardiovascular Disease
DX: I08.0 Rheumatic disorders of both mitral and aortic valves (principal); I10 Essential (primary) hypertension; E78.5 Hyperlipidemia, unspecified; E11.9 Type 2 diabetes mellitus without complications; I25.10 Atherosclerotic heart disease of native coronary artery without angina pectoris
CPT/HCPCS: 36415; 80053; 80061; 93306

== ENCOUNTER → 2019-11-04 | Outpatient (CLI) | payer MEDICARE ==
[~2019-11-04] VITALS: Ht 167 cm; Wt 90.0 kg
[~2019-11-04] MED LIST changes: +REGADENOSON 0.4 MG/5 ML SYR (LEXISCAN) IV ONE
[2019-11-04] MEDS: CATHETER FLUSH 10 ML SYR IV PRN ×2 (11:16→12:11)
[2019-11-04 12:08] VITALS: BP 201/79
--- NOTE | 2019-11-04 14:32 | Cardiology Stress Test Report ---
Stress Test Report Date of Procedure/Referring: Date of Procedure: Nov 04, 2019 PCP Bobbi Strange MD Admitting Physician Winter España DO Indications: Hypertension, hyperlipidemia Baseline Heart Rate: 71 Baseline Blood Pressure: Blood Pressure Systolic: 201 Blood Pressure Diastolic: 79 Baseline EKG: Baseline EKG: Normal sinus rhythm Summary/Conclusion After explaining the procedure to the patient, she signed a consent and then brought to the stress nuclear laboratory. Patient received 0.4 mg Lexiscan for stress test, ECG, heart rate and blood pressure were monitored continuously. Resting and stress dose of radio tracer were injected, imaging was acquired and reviewed in short axis, horizontal long axis and vertical long axis views. TID 1.01 SSS 8 SDS 6 EF 34% Conclusion 1. Patient tolerated Lexiscan well 2. Occasional PVCs noted during test 3. Breast attenuation affecting the quality of the images with questionable reversible ischemia involving the basal to mid inferolateral wall and inferior wall 4. Diffuse left ventricular hypokinesia, EF 34 percent 5. Severe hypertension persisted during test BOBBI STRANGE MD Nov 04, 2019 14:32
== END ==
LOC: CARD 10:29
PROVIDERS: ATTEND Internal Medicine Cardiovascular Disease
DX: E78.2 Mixed hyperlipidemia (principal); I10 Essential (primary) hypertension; E11.9 Type 2 diabetes mellitus without complications; I25.10 Atherosclerotic heart disease of native coronary artery without angina pectoris
CPT/HCPCS: 78452; 93017; A9502

== ENCOUNTER → 2019-11-16 | Outpatient (CLI) | payer MEDICARE ==
[~2019-11-16] MED LIST changes: -REGADENOSON 0.4 MG/5 ML SYR (LEXISCAN) IV ONE
== END ==
LOC: LABNPT 07:01
PROVIDERS: ATTEND Internal Medicine Cardiovascular Disease
DX: Z01.818 Encounter for other preprocedural examination (principal)

== ENCOUNTER 2019-12-23 06:37 | Day surgery (SDC) | payer MEDICARE ==
[~2019-12-23] VITALS: Ht 167 cm; Wt 90.0 kg
--- OUTSIDE RECORDS SUMMARY | 2019-12-23 06:53 | XMS REPORT ---
Author Author [employer]. assembly lead person [facility] [place] Address [address] [address] Care Team Providers Care Sample Washer Name Role Phone JYOTHI CRAWFORD Unavailable Unavailable DANIELLA GONZALEZ Unavailable MADL, SAKSHI Unavailable [facility] Unavailable [phone] SALONI K Unavailable QUINN SALONI K Unavailable DANIELLA GONZALEZ Unavailable DANIELLA GONZALEZ Unavailable MADL, SAKSHI Unavailable MADL, SAKSHI Unavailable MADL, SAKSHI Unavailable MADL, SAKSHI Unavailable MADL, SAKSHI Unavailable MADL, SAKSHI Unavailable MADL, SAKSHI Unavailable MADL, SAKSHI Unavailable MADL, SAKSHI Unavailable MADL, SAKSHI Unavailable MADL, SAKSHI Unavailable MADL, SAKSHI Unavailable MADL, SAKSHI Unavailable MADL, SAKSHI Unavailable MADL, SAKSHI Unavailable MADL, SAKSHI Unavailable MADL, SAKSHI Unavailable MADL, SAKSHI Unavailable MADL, SAKSHI Unavailable MADL, SAKSHI Unavailable MADL, SAKSHI Unavailable MADL, SAKSHI Unavailable MADL, SAKSHI Unavailable MADL, SAKSHI Unavailable MADL, SAKSHI Unavailable MADL, SAKSHI Unavailable MADL, SAKSHI Unavailable MADL, SAKSHI Unavailable MADL, SAKSHI Unavailable MADL, SAKSHI Unavailable MIREILLE, JASIEL Unavailable MIREILLE, JASIEL Unavailable MIREILLE, JASIEL Unavailable MIREILLE, JASIEL Unavailable MADL, SAKSHI L HUMAN RESOURCES SPECIALIST Unavailable Unavailable YEN SHAH, KATHRIN Mensah Unavailable Unavailab heaven SANDOVAL MD, TANJA Bradford Unavailable Unavailable ABEBA OBRIEN APRN Unavailable Unavailable AZALIA ROJO, MEKHI Batista Unavailable Unavailable GENARO ROJO, BING Cabrera Unavailable Unavailable DOLORES CRUZ Unavailable Unavailable MIREILLE, JASIEL Unavailable MIREILLE, JASIEL Unavailable [place]REIL[place], JASIEL Unavailable JOSHUA ROJO, BOBBI Olivera Unavailable Unavailable MIREILLE, JASIEL Unavailable MIREILLE, JASIEL Unavailable MIREILLE, JASIEL Unavailable MIREILLE, JASIEL Unavailable MIREILLE, JASIEL Unavailable MIREILLE, JASIEL Unavailable MIREILLE, JASIEL Unavailable MIREILLE, JASIEL Unavailable Migration, Doctor Unavailable Unavailable Migration, Doctor Unavailable Unavailable Migration, Doctor Unavailable Unavailable Migration, Doctor Unavailable Unavailable Migration, Doctor Unavailable Unavailable Migration, Doctor Unavailable Unavailable Migration, Doctor Unavailable Unavailable SALONI QUINN PCP PCP, TRANSITION Unavailable Unavailable LEISURE, [facility] Unavailable Unavailable PAONI, RUFUS Unavailable Unavailable PAONI, RUFUS Unavailable Unavailable MIREILLE, JASIEL D Unavailable Unavailable FLORECITA BROWN DO Unavailable Unavailable KATHRIN MCGUIRE Unavailable Unavailab CHRIS Wiggins Unavailable Unavailable MIREILLE, JASIEL Unavailable Unavailable Unavailable MIREIL[place], JASIEL Unavailable Unavailable MIREIL[place], JASIEL Unavailable Unavailable [place]REIL[place], JASIEL Unavailable Unavailable CRIS SOTO Unavailable Unavailable BROWN, DEEP Unavailable Unavailable BROWN, DEEP Unavailable Unavailable BOBBI STRANGE MD Unavailable Unavailable Unavailable Unavailable Unavailable Unavailable Unavailable Unavailable Unavailable Unavailable Unavailable Unavailable Allergies Allergy Reported Allergen(s) Allergy Type Date of Reaction(s) Care Facility Classificati Onset Provider on Sulfonamides Sulfonamides (Antibiotic) Drug Allergy 04-12-2018 Jarvis VILLEGAS Not (antibiotic) ; Translations: [Sulfa (Sulfonamide LORI Available (23 sources) (Sulfonamide Antibiotics) Antibiotics) (0 0000) ([id number])] ([id number]) , hives, UNKNOWN Unclassified NKANo Known Allergies ID [id number] RENATO Not (20 sources) NAKITA ROJO Available ([id number]) Unclassified SULFACETAMIDE [facility] (20 sources) SODIUM-SULFUR LEISURE [facility] ([id number]) Encounters Encounter Date Encounter Type Encounter Diagnosis Care Provider Facility Start: Patient encounter BOBBI STRANGE MD [facility] Via [facility] 11-16-2019 [facility] Start: Patient encounter BOBBI STRANGE MD [facility] 11-04-2019 [facility] Start: Patient encounter BOBBI STRANGE MD [facility] 11-03-2019 [facility] Start: Patient encounter Critical access hospital 10-08-2019 procedure [facility] Start: Patient encounter [facility] Di strict [facility]1 09-25-2019 procedure [facility] End: 09-25-2019 Start: Patient encounter [facility] Di strict #1 09-15-2019 [facility] End: 09-15-2019 Start: Patient encounter [facility] 08-28-2019 procedure [facility] Start: Patient encounter [facility] 08-26-2019 procedure [facility] Start: Patient encounter NA [facility] 07-08-2019 procedure [facility] Start: Telephone encounter JASIEL [facility]ENDRICK [facility] 05-21-2019 Start: Patient encounter NA [facility] Di strict #1 04-26-2019 procedure of [facility] ([id number]) End: 04-26-2019 Start: Telephone encounter JASIEL KENDRICK [facility] 04-06-2019 Start: Patient encounter NA [facility] 04-03-2019 procedure [facility] ([id number]) Start: [facility] 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 Start: Telephone encounter Type 2 diabetes JASIEL KENDRICK [facility] 03-25-2019 mellitus without complications Start: Telephone encounter Type 2 diabetes JASIEL KENDRICK [facility] 03-23-2019 mellitus without complications Start: Telephone encounter Type 2 diabetes JASIEL KENDRICK [facility] 03-17-2019 mellitus without complications Start: Telephone encounter Dizziness and JASIEL KENDRICK [facility] 01-26-2019 giddiness Start: Telephone encounter Hypothyroidism, JASIEL KENDRICK [facility] 01-13-2019 unspecified Start: Telephone encounter Type 2 diabetes JASIEL KENDRICK [facility] 12-22-2018 mellitus without complications Start: Patient encounter NA [facility] Di strict #1 11-29-2018 procedure of [facility] ([id number]) End: 11-29-2018 Start: Telephone encounter JASIEL KENDRICK [facility] 11-25-2018 Start: Telephone encounter Hypothyroidism, JASIEL KENDRICK [facility] 11-04-2018 unspecified Start: Telephone encounter JASIEL KENDRICK [facility] 10-29-2018 Start: Patient encounter JASIEL [facility] 10-27-2018 procedure [facility] ([id number]) Start: Patient encounter JASIEL [facility] 10-27-2018 procedure [facility] ([id number]) [facility] Pain [facility] left foot HEATHER HILARY [facility] 10-27-2018 CARE CARE [facility]: [facility] ([id number]) Start: Follow-up encounter Encounter for JASIEL [facility] 10-15-2018 follow-up examination after completed treatment for conditions other than malignant neoplasm Start: Patient encounter KATHRIN [facility] is 10-14-2018 procedure [facility] ([id number]) Start: Patient encounter KATHRIN K [facility] is 10-14-2018 procedure [facility] Start: Patient encounter FLORECITA BROWN DO [facility] 10-08-2018 [facility] End: 10-08-2018 Start: Patient encounter [facility] 10-04-2018 [facility] ([id number]) Start: Patient encounter [facility] 10-04-2018 [facility] ([id number]) Start: [facility] Cutaneous abscess, NEEL RUIZ [facility] 10-04-2018 CARE unspecified CARE Start: Patient encounter FLORECITAASHWIN BROWN [facility] is 10-03-2018 procedure Work Phone: [facility] ([id number]) End: 10-03-2018 Start: Telephone encounter JASIEL KENDRICK [facility] 10-03-2018 Start: Patient encounter FLORECITA BROWN DO [facility] 10-03-2018 procedure [facility] End: 10-03-2018 Start: Telephone encounter Type 2 diabetes JASIEL KENDRICK [facility] 10-01-2018 mellitus without complications Start: Telephone encounter Dizziness and JASIEL KENDRICK [facility] 09-29-2018 giddiness Start: ([facility]) Chronic Health Mixed hyperlipidemia JASIEL MATOS [facility] 09-26-2018 Maintenance End: 09-26-2018 Start: Patient encounter TRANSITION [facility] 09-26-2018 procedure [facility] ([id number]) Start: Telephone encounter JASIEL KENDRICK [facility] 09-25-2018 End: 09-25-2018 Start: Telephone encounter JASIEL KENDRICK [facility] 09-18-2018 End: 09-18-2018 Start: [facility] ([id number]) Start: Patient encounter [facility] 07-18-2018 [facility] ([id number]) Start: Patient encounter [facility] 07-17-2018 procedure [facility] ([id number]) Start: Patient encounter [facility] 07-17-2018 procedure [facility] ([id number]) Start: Patient encounter [facility] 06-03-2018 procedure [facility] ([id number]) Start: Patient encounter TRANSITION PCP [facility] 05-15-2018 procedure [facility] ([id number]) NEGATED Patient encounter [facility] Start: procedure [facility] 04-29-2018 [place] ([id number]) Start: Emergency department SHAHEEN BERNOT Not Avai lable ([id number]) 04-12-2018 patient visit End: 04-12-2018 Start: Patient encounter SHAHEEN BERNOT Not Availab le ([id number]) 04-12-2018 procedure Start: Patient encounter [facility] 04-09-2018 procedure [facility] ([id number]) Start: Emergency department ABEBA OBRIEN Not Available ([id number]) 04-05-2018 patient visit End: 04-05-2018 Start: Patient encounter ABEBA OBRIEN Not Availab le ([id number]) 04-05-2018 procedure Start: Patient encounter JASIEL KENDRICK [facility] 03-17-2018 Work Phone: [place] ([id number]) NEGATED Patient encounter NA NA [facility] Start: [facility] 11-28-2017 ([id number]) Start: Patient encounter NA [facility] 11-19-2017 [facility] ([id number]) Start: Patient encounter SAKSHI MADL [facility] 08-28-2017 [facility] ([id number]) NEGATED Emergency department Start: patient visit 07-26-2017 End: 07-26-2017 Start: Patient encounter BING LAM MD Not Available ([id number]) 07-26-2017 Start: Patient encounter SAKSHI TIDWELL [facility] ealt 07-02-2017 [facility] ([id number]) NEGATED Patient encounter Start: 04-18-2017 Start: Patient encounter SAKSHI TIDWELL Not Availab le ([id number]) 03-11-2017 Start: Patient encounter SAKSHI TIDWELL Not Availab le ([id number]) 10-30-2016 Start: Patient encounter SAKSHI TIDWELL Not Availab le ([id number]) 08-28-2016 Start: Patient encounter ABEBA OBRIEN Not Availab le ([id number]) 07-21-2016 procedure Start: Emergency department BING LAM MD N ot Available ([id number]) 07-21-2016 patient visit End: 07-21-2016 Start: Patient encounter MEKHI VIEYRA MD Not Av ailable ([id number]) 07-21-2016 procedure Start: Emergency department MEKHI VIEYRA MD Not Available ([id number]) 07-21-2016 patient visit End: 07-21-2016 Start: Patient encounter BOBBI STRANGE MD Not Availa ble ([id number]) 06-27-2016 End: 06-27-2016 Start: Patient encounter DANIELLA OLIVASANDRABRIAN DO Not A vailable ([id number]) 12-26-2015 Start: Patient encounter 11-30-2015 Start: Patient encounter KATHRIN Not Availab le ([id number]) 01-03-2015 YEN SHAH Start: Patient encounter 12-20-2014 Start: Patient encounter DANIELLA GONZALEZ DO Not A vailable ([id number]) 12-02-2014 Start: Patient encounter KATHRIN Not Availab le ([id number]) 12-02-2014 YEN PA Start: Emergency department MEKHI VIEYRA MD Not Available ([id number]) 11-15-2014 patient visit End: 11-15-2014 Start: Patient encounter BOBBI STRANGE MD Not Availa ble ([id number]) 04-21-2014 Start: Emergency department BING LAM MD N ot Available ([id number]) 04-16-2014 patient visit End: 04-17-2014 NEGATED Evaluation and Start: management of 12-01-2013 inpatient End: 12-04-2013 Start: Emergency department 10-29-2013 patient visit End: 10-29-2013 Start: Patient encounter 10-14-2013 Start: Evaluation and DANIELLA GONZALEZ DO Not Avai lable ([id number]) 09-08-2013 management of inpatient End: 09-10-2013 Start: Patient encounter 08-30-2013 Start: Evaluation and 04-01-2013 management of inpatient End: 04-02-2013 Start: Patient encounter RENATO MACE MD Not Avai lable ([id number]) 03-30-2013 Start: Patient encounter 03-09-2013 End: 03-09-2013 Start: Patient encounter 03-04-2013 Start: Patient encounter BOBBI STRANGE MD Not Availa ble ([id number]) 03-03-2013 Start: Patient encounter DANIELLA OLIVASANDRABRIAN DO Not A vailable ([id number]) 11-27-2012 Start: Patient encounter NELLY SANDOVAL Not Availab le ([id number]) 10-23-2012 Start: Patient encounter 07-24-2012 End: 10-22-2012 Start: Patient encounter JAZZY PAREDES MD Not Availab le ([id number]) 05-19-2012 procedure End: 05-19-2012 Start: Patient encounter ABHIJIT SOUTH MD Not Avai lable ([id number]) 03-17-2012 procedure End: 03-17-2012 Start: Patient encounter ABHIJIT SOUTH MD Not Avai lable ([id number]) 03-14-2012 procedure Start: Emergency department PEDRO BORREGO Not Avai lable ([id number]) 02-06-2012 patient visit End: 02-06-2012 NEGATED Emergency department TANJA SANDOVAL MD Not Cherelle ilable ([id number]) Start: patient visit 01-20-2012 End: 01-20-2012 Start: Patient encounter JAZZY PAREDES MD Not Availab le ([id number]) 01-14-2012 procedure Start: Patient encounter TRENT PEREIRA Not Availab le ([id number]) 11-26-2011 procedure Pre-operative ABHIJIT SOUTH MD Not Available (0000 0) examination, unspecified Encounter for other FLORECITA BROWN DO [facility] Via [facility] examination ([id number]) Medical Equipment No Information Goals No Information Immunizations The data below is from unstructured sourcesNo immunization records. No Known Immunizations No Known ImmunizationsNo immunization records.No immunization records.No immunization records.No immun ization records.No immunization records.No immunization records. No Known Immunizations No Known Immunizations No Known Immunizations No Known Immunizations No Known Immunizations No Known Immunizations No Known Immunizations No Known Immunizations No Known Immunizations No Known Immunizations No Known Immunizations No Known Immunizations No Known Immunizations No Known Immunizations No Known Immunizations No Known Immunizations No Known Immunizations No Known Immunizations No Known Immunizations No Known Immunizations No Known Immunizations No Known Immunizations No Known Immunizations No Known Immunizations No Known Immunizations No Known Immunizations No Known Immunizations No Known Immunizations No Known Immunizations No Known Immunizations No Known Immunizations No Known Immunizations No Known Immunizations No Known Immunizations No Known Immunizations No Known Immunizations No Known Immunizations No Known Immunizations No Known Immunizations No Known Immunizations No Known Immunizations No Known Immunizations No Known Immunizations No Known Immunizations No Known Immunizations No Known Immunizations No Known Immunizations No Known Immunizations No Known Immunizations No Known Immunizations No Known Immunizations No Known Immunizations No Known Immunizations No Known Immunizations No Known Immunizations No Known Immunizations No Known Immunizations No Known Immunizations No Known Immunizations No Known Immunizations No Known Immunizations No Known Immunizations No Known Immunizations No Known Immunizations No Known Immunizations No Known Immunizations No Known Immunizations No Known Immunizations No Known Immunizations No Known Immunizations No Known Immunizations No Known Immunizations No Known Immunizations No Known Immunizations No Known Immunizations No Known Immunizations No Known Immunizations No Known Immunizations No Known Immunizations No Known Immunizations No Known Immunizations No Known Immunizations No Known Immunizations No Known Immunizations No Known Immunizations No Known Immunizations No Known Immunizations No Known Immunizations No Known Immunizations No Known Immunizations No Known Immunizations No Known Immunizations No Known Immunizations No Known Immunizations No Known Immunizations No Known Immunizations No Known Immunizations No Known Immunizations No Known Immunizations No Known Immunizations No Known Immunizations No Known Immunizations No Known Immunizations No Known Immunizations No Known Immunizations No Known Immunizations No Known Immunizations No Known Immunizations Interventions No Information Medications Current Medications Medication Drug Dates Sig Sig (Original) Class(es) (Normalized) LifeproofTouch Ultra Blue - Start: Fjuuluch Ultra Blue - In Vitro Once a (1 source) 04-18-2018 day test blood suga r 24h Apr, Active oxybutynin chloride 5 mg Cholinergi take 1 tablet Oxybu tynin Chloride ER 5 mg Orally Once oral tablet c by mouth once a day 1 tablet 24h 90 days Active (1 source) Muscarinic daily Antagonist Potassium Chloride Corie take 1 tablet Potassium Ch loride Corie ER 10 MEQ Orally ER 10 MEQ by mouth once Once a day 1 tablet with food 24h Active (1 source) daily at mealtime Completed/Discontinued Medications Medication Drug Dates Sig Sig (Original) Class(es) (Normalized) Acetaminophen Start: (1 source) 04-26-2019 End: 04-26-2019 Aspirin (Aspirin 325 Mg Start: take 325 Aspir in (Aspirin 325 Mg Tab) 325 Mg Tab, Tab) 325 Mg Tab, 325 Mg 04-02-2013 tablets by 325 M g Oral Daily@0900 04/02/13 Oral mouth once Discontinued (7 sources) End: daily 09-09-2013 End: 10-03-2018 Aspirin (Aspirin 325 Mg Tab) 325 Mg Tab, 325 Mg Oral Daily Discontinued End: 09-10-2013 take 325 Aspirin tablets by (Aspirin 325 mouth once Mg Tab) 325 Mg daily Tab, 325 Mg Oral Daily Discontinued cefTRIAXone Cephalospo Start: (1 source) rin 04-26-2019 Antibacter ial End: 04-26-2019 Cholecalciferol (Vitamin End: Cholecalcife rol (Vitamin D3) (Vitamin D3) (Vitamin D3) 50,000 10-03-2018 D3) 50,000 Un it Capsule, 82427 Unit Oral Unit Capsule, 64480 Unit Every Saturday Disconti nued Oral (1 source) Hydrochlorothiazide End: Hydrochlorothiazi de (Hctz) 25 Mg Tab, 25 (Hctz) 25 Mg Tab, 25 Mg 10-03-2018 Mg Oral Every 48 Hours Discontinued Oral (1 source) KETOROLAC VIAL INJ 15 Start: MG/CC (TORADOL VIAL) 11-29-2018 (1 source) End: 11-29-2018 KETOROLAC VIAL INJ 30 Start: MG/CC (TORADOL VIAL) 04-26-2019 (1 source) End: 04-26-2019 LORAZEPAM 1CC VIAL INJ 2 Start: MG/CC (ATIVAN VIAL) 11-29-2018 (1 source) End: 11-29-2018 Normal saline Start: (1 source) 04-26-2019 End: 04-26-2019 [place]-3 Fatty Acids/Fish End: [place]-3 Fatt y Acids/Fish Oil (Fish Oil Oil (Fish Oil 1,000 Mg 10-03-2018 1,000 Mg Softg el) 1 Each Capsule, 1000 Softgel) 1 Each Capsule, Mg Oral Twice A Day Disc ontinued 1000 Mg Oral (1 source) [place]-3 Fatty Acids/Fish take 2 tablets [place]-3 Fat ty Acids/Fish Oil ([place]-3 Oil ([place]-3 1,000 Mg by mouth twice 1,000 Mg Softg el) 1 Each Capsule 2,000 Softgel) 1 Each Capsule daily, then Mg ORAL Twic e A Day take 2 (1,000mg) (1 source) take 1 tablet tabs by mouth Orphenadrine Muscle Start: (1 source) Relaxant 04-26-2019 End: 04-26-2019 Oxycodone End: take 5-325 Oxycodone Hcl/A cetaminophen (Percocet Hcl/Acetaminophen 09-09-2013 tablets by 5-325 Mg Ta blet) 1 Each Tablet, 1-2 Each (Percocet 5-325 Mg mouth every Oral Q4-6HRS as n eeded for Pain Tablet) 1 Each Tablet, four to six Discontinued 1-2 Each Oral hours as needed (3 sources) for pain, then take 1-1 tablets by mouth as needed for pain TRAMADOL PAIN PACK TAB Start: 50 MG (ULTRAM PAIN PACK) 09-25-2019 (1 source) End: 09-25-2019 Payers Date Payer Normalized Payer [id number] [employer] [place] [employer] Plan of Treatment Date Care Activity Detail Author Start: Follow-up encounter [facility] 06-10-2019 Start: Follow-up encounter [facility] 04-29-2018 [facility] ([id number]) Problems Active Problems Problem Problem Date Last Documented Episodic/Chr Provider Classificati Recorded Date onic on Abdominal Abdominal pain, other specified Epis odic pain site (3 sources) Adverse Other drug allergy ; Translations: DOLORES effects of [Unspecified drug or medicinal [place] medical substance causing adverse e ffects drugs in therapeutic use] (7 sources) Conduction Encounter for adjustment and 11-16-2019 Chronic FLORECITA DELMAN disorders management of other cardiac device DO (4 sources) Coronary Presence of coronary angioplasty 11-16-2019 Episod ic PEDRO ELMO DO atherosclero implant and graft sis and other heart disease (13 sources) Coronary Presence of coronary angioplasty PE TER OBRIEN atherosclero implant and graft ; Transla tions: sis and [Atherosclerotic heart dise ase of other heart yurok coronary artery with out disease angina pectoris] (26 sources) Esophageal Gastro-esophageal reflux disease 11-16-2019 Chroni c FLORECITA DELMAN disorders without esophagitis DO (5 sources) Headache; Migraine, unspecified, not 11-16-2019 Chronic FLORECITA DELMAN including intractable, without status DO migraine migrainosus (5 sources) Heart valve Rheumatic disorders of both mitral 11-16-2019 Roller Cleaner alvaro KATHRIN disorders and aortic valves YANETHBACILIO (3 sources) SON PA Malaise and Other fatigue Episodic DANIELLA fatigue GELLENDER DO (8 sources) Nonspecific Other chest pain ; Translations: 11-16-2019 Episod ic KATHRIN chest pain [Chest pain, unspecified] SAAVEDRA-AN BRIAN (20 sources) SON PA Occlusion or Occlusion and stenosis of carotid 11-16-2019 Roller Cleaner alvaro RENATO stenosis of artery without mention of cerebral NAKITA ROJO precerebral infarction ; Translations: arteries [Occlusion and stenosis of left (21 sources) carotid artery] Open wounds Laceration without foreign body of Episodic KORIN of left index finger without damage to CHAYITO DO extremities nail, initial encounter ; (8 sources) Translations: [Laceration o f finger] Osteoarthrit Primary osteoarthritis, left ankle 11-16-2019 Chr onic FLORECITA DELMAN is and foot ; Translations: [Primary D O (8 sources) osteoarthritis, unspecified site] 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) use of aspirin 11-16-2019 Epis odic BING aftercare GENARO (20 sources) Other Other half-way (current) drug 11-16-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 PEDRO ELMO DO aftercare therapy (21 sources) Other Long-term (current) use of aspirin Episodic JAZZY BAQIR aftercare MD (8 sources) Other Long-term (current) use of other Episodic JAZZY PAREDES aftercare medications MD (12 sources) Other Long-term (current) use of Episodic B IBAN STRANGE aftercare antiplatelet/antithrombotic MD (4 sources) 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) use of 11-16-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 ABEBA MCDONALDES aftercare antithrombotics/antiplatele ts (9 sources) Other Encounter for follow-up examination Episodic JASIEL MIREILLE aftercare after completed treatment f or (1 source) conditions other than malgeorgina nant neoplasm ; Translations: [ - Surgical followup visit Z09] Other Presence of cardiac and vascular Chronic ABEBA MCDONALDES circulatory implant and graft, unspecif ied disease (4 sources) Other 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-16-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 BOBBI STRANGE circulatory ischemic attack (TIA), and cerebral MD disease infarction without residual (24 sources) deficits Other Orthostatic hypotension Episodic circulatory disease (3 sources) Other Unspecified disorder of kidney and E pisodic diseases of ureter kidney and ureters (3 sources) Other Diarrhea, unspecified Episodic BING gastrointest BRUEGGEMANN inal MD disorders (4 sources) Other Hand, except finger injury Episodic injuries and conditions due to external causes (3 sources) Other Knee, leg, ankle, and foot injury Episodic BING injuries and BRUEGGEMANN conditions MD due to external causes (4 sources) Other Contusion Episodic SALONI QUINN injuries and conditions due to external causes (2 sources) Other lower Shortness of breath Episodic DANIELLA respiratory GELLENDER DO disease (7 sources) Other lower Painful respiration Episodic LYNIETA respiratory LEISURE disease (7 sources) Other lower Cough Episodic DANIELLA respiratory GELLENDER DO disease (4 sources) Other Other chronic pain Chronic ABEBA CABELLO nervous system disorders (10 sources) Other Other chronic pain Chronic DANIELLA nervous GELLENDER DO system disorders (4 sources) Other Anesthesia of skin Episodic TANJA GUS HOLGER nervous MD system disorders (6 sources) Other Arthropathy, unspecified, site Chronic DANIELLA non-traumati unspecified GELLENDER DO c joint disorders (4 sources) Other Pain in joint, shoulder region 09-18-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 JASIEL MIREILLE non-traumati c joint disorders (6 sources) Other Pain in left shoulder ; 09-18-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 TR COLLEEN non-traumati Translations: [ - Left anterior GREYSON NOT c joint shoulder pain M25.512] disorders (9 sources) Other Hypomagnesemia Chronic TANJA SANDOVAL nutritional; endocrine; and metabolic disorders (5 sources) Other Body mass index (BMI) 32.0-32.9, 11-16-2019 Chroni c BOBBI STRANGE nutritional; adult MD endocrine; and metabolic disorders (10 sources) Other Obesity, unspecified Chronic BOBBI STRANGE nutritional; endocrine; and metabolic disorders (5 sources) Other Hypomagnesemia Chronic SALONI QUINN nutritional; endocrine; and metabolic disorders (3 sources) Other Other obesity due to excess 11-16-2019 Chronic FLORECITA BROWN nutritional; calories DO endocrine; and metabolic disorders (5 sources) Other skin Rash and other nonspecific skin Episodic DOLORES disorders eruption NEERAJ SHAH (23 sources) Other skin Rash and other nonspecific skin Episodic PEDRO ELMO DO disorders eruption (15 sources) Peripheral Peripheral vascular disease, 11-16-2019 Chronic ABEBA OBRIEN and visceral unspecified atherosclero sis (9 sources) Residual Procedure and treatment not carried Episodic MEKHI codes; out due to patient leaving prior to [place]A [place] MD unclassified being seen by health care p jenni (5 sources) Substance-re Nicotine dependence, cigarettes, Chronic ABEBA OBRIEN lated uncomplicated ; Translation s: disorders [Tobacco use disorder] (9 sources) Syncope Syncope and collapse Episodic DANIELLA (18 sources) GELLENDER DO Thyroid Thyroid dysfunction Episodic SALONI BE AN disorders (3 sources) Transient Unspecified transient cerebral Chronic BOBBI STRANGE cerebral ischemia ischemia (7 sources) NEGATED Obesity, unspecified Chronic (6 sources) NEGATED Personal history of other diseases E pisodic (7 sources) of the circulatory system NEGATED Personal history of other diseases E pisodic (7 sources) of the digestive system NEGATED Disturbance of skin sensation Episod ic (6 sources) NEGATED Hypotension, unspecified Episodic (3 sources) NEGATED Body Mass Index 32.0-32.9, adult ; (7 sources) Translations: [Mechanical a nd motor problems with head] Past or Other Problems Problem Problem Date Last Documented Episodic/Chr Provider Classificati Recorded Date onic on Coma; Coma scale, best verbal response, T RAVIS stupor; and oriented, at arrival to emergency [facility]nita HOWARD brain damage department ; Translations: [Coma (6 sources) scale, eyes open, spontaneo us, at arrival to emergency department] Disorders of Pure hypercholesterolemia, TANJA TA YLOR lipid unspecified MD metabolism (16 sources) External Fall on same level from slipping, T RAVIS cause codes: tripping and stumbling without SETH OT Fall subsequent striking against object, (2 sources) initial encounter External Fall from other slipping, tripping, BING cause codes: or stumbling BRUEGGEMANN Overexertion MD (4 sources) External Kitchen of single-family (private) BING cause codes: house as the place of occurrence of BRUEGGEMANN Place of the external cause ; Translations: MD occurrence [Home accidents] (16 sources) External Other external cause status ; JOSHU A cause codes: Translations: [Other external cause BRUEGGEMANN Unspecified status] MD (15 sources) External Other foreign body or object ZEN Donnelly Injury - Cut entering through skin, initial GALV IN DO / Wallace encounter (4 sources) Genitourinar Personal history of other diseases Episodic PETER OBRIEN y symptoms of urinary system and ill-defined conditions (4 sources) Other intermediate (current) use of systemic Episodic PETER OBRIEN aftercare steroids (11 sources) 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) use of oral JUAN BRENDEN aftercare hypoglycemic drugs BRUEGARCELIA (6 sources) MD Other Pain in limb Episodic PEDRO ELMO DO connective tissue disease (1 source) Other Unspecified injury of head, initial SHAHEEN injuries and encounter BERNOT conditions due to external causes (2 sources) Other lower Shortness of breath Episodic JAZZY BAQ IR respiratory MD disease (1 source) Other skin Localized swelling, mass and lump, Episodic FLORECITA DELMAN disorders trunk DO (1 source) Residual Acquired absence of other organs Episodic PETER OBRIEN codes; unclassified (4 sources) Residual Family history of ischemic heart Episodic PETER OBRIEN codes; disease and other diseases of the unclassified circulatory system (4 sources) Residual Family history of malignant Episodic PETER OBRIEN codes; neoplasm of kidney unclassified (4 sources) Residual Family history of malignant Episodic PETER OBRIEN codes; neoplasm of other organs or systems unclassified (4 sources) Residual Personal history of noncompliance Episodic JAZZY BAQIR codes; with medical treatment, presenting MD unclassified hazards to health (1 source) Residual Other specified postprocedural CHAGO R OBRIEN codes; states unclassified (7 sources) Screening or Personal history of nicotine Episodic BOBBI STRANGE history of dependence MD mental health and substance abuse (21 sources) Unclassified Chronic pain STORMY (4 sources) THEODORE NEGATED Otalgia, unspecified Episodic TANJA T CATHY (1 source) NEGATED Unspecified otitis media Episodic NADJA NT LORI (1 source) NEGATED Other cause of strike by makenzie rizo, (6 sources) projected or falling object , initial encounter ; Translations: [Striking against or struck accidentally by furniture without subsequent fall] NEGATED intermediate (current) use of oral (3 sources) hypoglycemic drugs Procedures Date Procedure Procedure Detail Performing Cl inician Start: Ct SHAHEEN JIMÉNEZ 04-12-2018 Head/Face/Cervical Wo Start: Radiography of SHAHEEN [facility] 04-12-2018 elbow Start: Radiography of SHAHEEN [facility] 04-12-2018 shoulder Start: Cul bact xcpt JASIEL MIREILLE 11-19-2017 urine blood/stool aerobic isol Start: Handlg&/or convey JASIEL MIREILLE 11-19-2017 of spec for tr office to lab Start: Iaadiadoo JASIEL MIREILLE 11-19-2017 trichomonas vaginalis Start: Infectious agent JASIEL MIREILLE 11-19-2017 enzymatic actv oth/thn virus Start: No Charge JASIEL MIREILLE 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-2017 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 Procedure on single vessel Results Test Name Value Interpreta Reference Facilit Date tion Range y Time not yet categorized on null Control Negative Invalid Communi Interpreta ty tion Code [facility] ([id number]) Exp date 2021-01-28 Invalid Communi Interpreta ty tion Code [facility] (36338) Lot # [id number] Invalid Communi Interpreta ty tion Code [facility] (53545) not yet categorized on 2019-08-26 BLO 3+ Invalid Communi Interpreta ty tion Code [facility] (36781) KET Negative Invalid Communi Interpreta ty tion Code [facility] (10540) Lot # [id number] Invalid Communi Interpreta ty tion Code [facility] (01788) SG 1.015 Invalid Communi Interpreta ty tion Code [facility] (98852) URO 0.2 Invalid Communi Interpreta ty tion Code [facility] (67625) laboratory on 2019-08-26 pH (Bld) 6.5 [pH] Invalid Communi Interpreta ty tion Code [facility] (39212) Protein (U) Negative Invalid Communi [Mass/Vol] Interpreta ty tion Code [facility] (08627) laboratory on 2019-07-08 Magnesium [Mass/Vol] 1.9 mg/dL Normal 1.5-2.5 Commu ni mg/dL ty [facility] ([id number]) laboratory on 2019-04-26 Albumin BCG dye 3.9 Invalid 3.6-5.1 Hospita [Mass/Vol] Interpreta g/dL l 019 tion Code Distric 14:32-0 t #[facility] of [address] [facility] ([id number]) ALP [Catalytic 60 U/L Invalid 35-130 U/L Hospita activity/Vol] Interpreta l 019 tion Code Distric 14:32-[address] t [address] [place] [address] ([id number]) ALT [Catalytic 9 U/L Invalid 6-45 U/L Hospita activity/Vol] Interpreta l 019 tion Code Distric 14:32-0 t [address] [place] [address] ([id number]) Anion gap 13 mmol/L Invalid 6-14 Hospita 04-26-2 [Moles/Vol] Interpreta l 019 tion Code Distric 14:32-0 [address] [place] [address] ([id number]) AST [Catalytic 13 U/L Invalid 2-40 U/L Hospita 04-26-2 activity/Vol] Interpreta l 019 tion Code Distric 14:32-0 [address] [place] [address] ([id number]) Basophils (Bld) 0.0 10*3/uL Invalid 0.0-0.2 Hospita 04-26 -2 [#/Vol] Interpreta K/uL l 019 tion Code Distric 14:32-0 t [facility] [address] [facility] (93019) Basophils/100 WBC 0.30 % Invalid 0.00-2.50 Hospita 04-26 -2 (Bld) Interpreta % l 019 tion Code Distric 14:32-0 t [facility] of [address] [facility] (94233) Bilirubin [Mass/Vol] 0.7 mg/dL Invalid 0.2-1.2 Hospita 12 -15-2 Interpreta mg/dL l 019 tion Code Distric 14:32-0 t [facility] of [address] [facility] ([id number]) Calcium [Mass/Vol] 9.3 mg/dL Invalid 8.3-10.4 Hospita 12-1 5-2 Interpreta mg/dL l 019 tion Code Distric 14:32-0 [address] [place] [address] ([id number]) Chloride [Moles/Vol] 108 mmol/L Invalid 95-114 Hospita 1 2-15-2 Interpreta mmol/L l 019 tion Code Distric 14:32-0 [address] [place] [address] ([id number]) Creatinine 0.78 mg/dL Invalid 0.50-1.50 Hospita 15-2 [Mass/Vol] Interpreta mg/dL l 019 tion Code Distric 14:32-0 t [facility] of [address] [facility] (43741) Eosinophils (Bld) 0.3 10*3/uL Invalid 0.0-0.7 Hospita - [#/Vol] Interpreta K/uL l 019 tion Code Distric 14:32-0 t [facility] of [address] [facility] (59111) Eosinophils/100 WBC 2.6 % Invalid 0.0-7.0 % Hospita - (Bld) Interpreta l 019 tion Code Distric 14:32-0 [address] [place] [address] ([id number]) Erythrocyte 15.8 % High 11.6-14.8 Hospita 15-2 distribution width % l 019 (RBC) [Ratio] Distric 14:32-0 t [facility] of [address] [facility] (08932) GFR/1.73 sq 74 mL/min/{1.73_m2} Invalid >59 Hospita 1 2-15-2 M.predicted MDRD Interpreta mL/min/1.7 l 019 (S/P/Bld) [Vol tion Code 3m2 Distric 14:32-0 rate/Area] [address] [place] [address] ([id number]) Globulin (S) 2.7 g/dL Invalid 2.3-3.5 Hospita -15-2 [Mass/Vol] Interpreta g/dL l 019 tion Code Distric 14:32-0 t #[facility] [address] [facility] () Glucose [Mass/Vol] 115 mg/dL High 70-110 Hospita 04-12 5-2 mg/dL l 019 Distric 14:32-0 t #[facility] of [address] [facility] () HCO3 (P) [Moles/Vol] 27 Invalid 22-33 Hospita 2 Interpreta mEq/L l 019 tion Code Distric 14:32-0 t #[facility] of [address] [facility] () Hematocrit (Bld) 39.6 % Invalid 36.0-46.0 Hospita [Volume fraction] Interpreta % l 019 tion Code Distric 14:32-0 [address] [place] [address] () Hemoglobin (Bld) 13.2 g/dL Invalid 13.0-15.0 Hospita [Mass/Vol] Interpreta g/dL l 019 tion Code Distric 14:32-0 [address] [place] [address] () Lymphocytes (Bld) 1.94 10*3/uL Invalid 0.60-3.40 Hospita [#/Vol] Interpreta K/uL l 019 tion Code Distric 14:32-0 [address] [place] [address] () Lymphocytes/100 WBC 17.0 % Invalid 10.0-50.0 Hospita (Bld) Interpreta % l 019 tion Code Distric 14:32-0 [address] [place] [address] () MCH (RBC) [Entitic 28.0 pg Invalid 27.0-31.0 Hospita - 5-2 mass] Interpreta pg l 019 tion Code Distric 14:32-0 [address] [place] [address] () MCHC (RBC) 33.3 g/dL Invalid 32.0-36.0 Hospita 15-2 [Mass/Vol] Interpreta g/dL l 019 tion Code Distric 14:32-0 [address] [place] [address] () MCV (RBC) [Entitic 83.9 fL Invalid 80.0-97.0 Hospita 12- 5-2 vol] Interpreta fL l 019 tion Code Distric 14:32-0 t [facility] of [address] [facility] (40908) Monocytes (Bld) 1.1 10*3/uL High 0.0-0.9 Hospita 04-26 -2 [#/Vol] K/uL l 019 Distric 14:32-0 t #[facility] of [address] [facility] (45607) Monocytes/100 WBC 9.9 % Invalid 0.0-12.0 % Hospita 12- 5-2 (Bld) Interpreta l 019 tion Code Distric 14:32-0 t #[facility] of [address] [facility] (89616) Neutrophils (Bld) 8.04 10*3/uL High 2.00-6.90 Hospita - [#/Vol] K/uL l 019 Distric 14:32-0 t #[facility] of [address] [facility] (88709) Neutrophils/100 WBC 70.2 % Invalid 37.0-80.0 Hospita - (Bld) Interpreta % l 019 tion Code Distric 14:32-0 t #[facility] of [address] [facility] (81397) Osmolality Calc 298 High 280-295 Hospita [Osmolality] l 019 Distric 14:32-0 t [facility] of [address] [facility] (75334) Platelet mean volume 11.5 fL High 7.4-10.0 Hospita -2 (Bld) [Entitic vol] fL l 019 Distric 14:32-0 [address] [place] [address] ([id number]) Platelets (Bld) 189 10*3/uL Invalid 150-400 Hospita 04-26 [#/Vol] Interpreta K/uL l 019 tion Code Distric 14:32-0 t #[facility] of [address] [facility] (38507) Potassium 3.9 mmol/L Invalid 3.5-5.3 Hospita 04-26-2 [Moles/Vol] Interpreta mmol/L l 019 tion Code Distric 14:32-0 [address] [place] [address] ([id number]) Protein [Mass/Vol] 6.6 g/dL Invalid 6.0-8.3 Hospita 12- 5-2 Interpreta g/dL l 019 tion Code Distric 14:32-0 t #[facility] of [address] [facility] (58867) RBC (Bld) [#/Vol] 4.72 10*6/uL Invalid 3.60-5.00 Hospita Interpreta M/uL l 019 tion Code Distric 14:32-0 t #[facility] of [address] [facility] (60146) Sodium [Moles/Vol] 144 mmol/L Invalid 134-148 Hospita Interpreta mmol/L l 019 tion Code Distric 14:32-0 t [facility] of [address] [facility] (25838) Urea nitrogen 12 mg/dL Invalid 5-25 mg/dL Hospita [Mass/Vol] Interpreta l 019 tion Code Distric 14:32-0 t #[facility] of [address] [facility] (26329) WBC (Bld) [#/Vol] 11.44 10*3/uL High 5.00-10.00 Hospita K/uL l 019 Distric 14:32-0 t [facility] of [address] [facility] (50706) not yet categorized on 2019-04-03 A:C (IN HOUSE) 03/2020~clear~yellow~150 mg/L~100 mg/dL~30 - I nvalid Communi 300 mg/g Interpreta ty tion Code [facility] (73269) Exp date 12/2020 Invalid Communi Interpreta ty tion Code [facility] (91441) Lot 5.6~5.9~[id number] Invalid Communi Interpreta ty tion Code [facility] (91245) Lot # [id number] Invalid Communi Interpreta ty tion Code [facility] (19904) MICROALBUMIN abnormal Invalid Communi Interpreta ty tion Code [facility] (11278) thyroid on 2018-11-29 TSH Qn 0.63 Invalid 0.32-5.00 Hospita Interpreta mIU/mL l 019 tion Code Distric 16:32-0 t #[facility] of [address] [facility] (14578) other on 2018-11-29 Albumin BCG dye 4.2 Invalid 3.6-5.1 Hospita [Mass/Vol] Interpreta g/dL l 019 tion Code Distric 16:32-0 [address] [place] [address] () CK [Catalytic 32 U/L Invalid 26-174 U/L Hospita activity/Vol] Interpreta l 019 tion Code Distric 16:32-0 [address] [place] [address] () [facility]19 [facility] Code Distric 16:32-0 [address] [place] [address] () Erythrocyte 17.3 % High 11.6-14.8 [facility] % l 019 (RBC) [Ratio] Distric 16:32-0 [address] [place] [address] () GFR/1.73 sq 74 mL/min/{1.73_m2} Invalid >59 Hospita 0 7-20-2 M.predicted MDRD Interpreta mL/min/1.7 l 019 (S/P/Bld) [Vol tion Code 3m2 Distric 16:32-0 rate/Area] [address] [place] [address] () Globulin (S) 2.6 g/dL Invalid 2.3-3.5 Hospita 11-29-2 [Mass/Vol] Interpreta g/dL l 019 tion Code Distric 16:32-0 [address] [place] [address] () HCO3 (P) [Moles/Vol] 23 Invalid 22-33 Hospita Interpreta mEq/L l 019 tion Code Distric 16:32-0 [address] [place] [address] () INR Coag (Platelet 0.9 Low 1.0-4.0 Hospita 07-2 0-2 poor plasma or l 019 blood) [Relative Distric 16:32-0 time] [address] [place] [address] () Lipase [Catalytic 39 U/L Invalid 7-59 U/L Hospita 11-29 activity/Vol] Interpreta l 019 tion Code Distric 16:32-0 [address] [place] [address] ([id number]) MCHC (RBC) 33.4 g/dL Invalid 32.0-36.0 Hospita 20-2 [Mass/Vol] Interpreta g/dL l 019 tion Code Distric 16:32-0 [address] [place] [address] ([id number]) Osmolality Calc 293 Invalid 280-295 Hospita 11-29-2 [Osmolality] Interpreta l 019 tion Code Distric 16:32-0 [address] [place] [address] ([id number]) Platelet mean volume 11.0 fL High 7.4-10.0 Hospita -2 (Bld) [Entitic vol] fL l 019 Distric 16:32-0 [address] [place] [address] ([id number]) metabolic panel on 2018-11-29 ALP [Catalytic 59 U/L Invalid 35-130 U/L Hospita 11-29-2 activity/Vol] Interpreta l 019 tion Code Distric 16:32-0 [address] [place] [address] ([id number]) ALT [Catalytic 12 U/L Invalid 6-45 U/L Hospita 11-29-2 activity/Vol] Interpreta l 019 tion Code Distric 16:32-0 [address] [place] [address] () Anion gap 17 mmol/L High 6-14 Hospita 11-29-2 [Moles/Vol] l 019 Distric 16:32-0 [address] [place] [address] ([id number]) AST [Catalytic 20 U/L Invalid 2-40 U/L Hospita 11-29-2 activity/Vol] Interpreta l 019 tion Code Distric 16:32-0 [address] [place] [address] ([id number]) Bilirubin [Mass/Vol] 0.6 mg/dL Invalid 0.2-1.2 Hospita 20-2 Interpreta mg/dL l 019 tion Code Distric 16:32-0 [address] [place] [address] ([id number]) Calcium [Mass/Vol] 10.0 mg/dL Invalid 8.3-10.4 Hospita 20-2 Interpreta mg/dL l 019 tion Code Distric 16:32-0 [address] [place] [address] ([id number]) Chloride [Moles/Vol] 105 mmol/L Invalid 95-114 Hospita 0 7-20-2 Interpreta mmol/L l 019 tion Code Distric 16:32-0 [address] [place] [address] ([id number]) Creatinine 0.78 mg/dL Invalid 0.50-1.50 Hospita 07-20-2 [Mass/Vol] Interpreta mg/dL l 019 tion Code Distric 16:32-0 [address] [place] [address] ([id number]) Glucose [Mass/Vol] 128 mg/dL High 70-110 Hospita 07-2 0-2 mg/dL l 019 Distric 16:32-0 [address] [place] [address] ([id number]) Potassium 4.5 mmol/L Invalid 3.5-5.3 Hospita 11-29-2 [Moles/Vol] Interpreta mmol/L l 019 tion Code Distric 16:32-0 [address] [place] [address] ([id number]) Protein [Mass/Vol] 6.8 g/dL Invalid 6.0-8.3 Hospita 07-2 0-2 Interpreta g/dL l 019 tion Code Distric 16:32-0 [address] [place] [address] ([id number]) Sodium [Moles/Vol] 140 mmol/L Invalid 134-148 Hospita Interpreta mmol/L l 019 tion Code Distric 16:32-0 [address] [place] [address] ([id number]) Urea nitrogen 20 mg/dL Invalid 5-25 mg/dL Hospita 11-29- [Mass/Vol] Interpreta l 019 tion Code Distric 16:32-0 [address] [place] [address] ([id number]) hematology on 2018-11-29 Basophils (Bld) 0.1 10*3/uL Invalid 0.0-0.2 Hospita 11-292 [#/Vol] Interpreta K/uL l 019 tion Code Distric 16:32-0 [address] [place] [address] ([id number]) Basophils/100 WBC 0.70 % Invalid 0.00-2.50 Hospita 11-29 - (Bld) Interpreta % l 019 tion Code Distric 16:32-0 [address] [place] [address] ([id number]) Eosinophils (Bld) 0.3 10*3/uL Invalid 0.0-0.7 Hospita [#/Vol] Interpreta K/uL l 019 tion Code Distric 16:32-0 [address] [place] [address] ([id number]) Eosinophils/100 WBC 3.6 % Invalid 0.0-7.0 % Hospita 20-2 (Bld) Interpreta l 019 tion Code Distric 16:32-0 [address] [place] [address] ([id number]) Hematocrit (Bld) 39.8 % Invalid 36.0-46.0 Hospita 20- 2 [Volume fraction] Interpreta % l 019 tion Code Distric 16:32-0 [address] [place] [address] ([id number]) Hemoglobin (Bld) 13.3 g/dL Invalid 13.0-15.0 Hospita 20- 2 [Mass/Vol] Interpreta g/dL l 019 tion Code Distric 16:32-0 [address] [place] [address] ([id number]) Lymphocytes (Bld) 2.68 10*3/uL Invalid 0.60-3.40 Hospita 20-2 [#/Vol] Interpreta K/uL l 019 tion Code Distric 16:32-0 [address] [place] [address] ([id number]) Lymphocytes/100 WBC 28.6 % Invalid 10.0-50.0 Hospita 20-2 (Bld) Interpreta % l 019 tion Code Distric 16:32-0 [address] [place] [address] ([id number]) MCH (RBC) [Entitic 27.3 pg Invalid 27.0-31.0 Hospita 07-2 0-2 mass] Interpreta pg l 019 tion Code Distric 16:32-0 [address] [place] [address] ([id number]) MCV (RBC) [Entitic 81.6 fL Invalid 80.0-97.0 Hospita 07-2 0-2 vol] Interpreta fL l 019 tion Code Distric 16:32-0 [address] [place] [address] ([id number]) Monocytes (Bld) 0.9 10*3/uL Invalid 0.0-0.9 Hospita 20 -2 [#/Vol] Interpreta K/uL l 019 tion Code Distric 16:32-0 [address] [place] [address] ([id number]) Monocytes/100 WBC 9.5 % Invalid 0.0-12.0 % Hospita 07-2 0-2 (Bld) Interpreta l 019 tion Code Distric 16:32-0 [address] [place] [address] ([id number]) Neutrophils (Bld) 5.38 10*3/uL Invalid 2.00-6.90 Hospita [#/Vol] Interpreta K/uL l 019 tion Code Distric 16:32-0 t #[address] of [address] [facility] (71221) Neutrophils/100 WBC 57.6 % Invalid 37.0-80.0 Hospita (Bld) Interpreta % l 019 tion Code Distric 16:32-0 t #1 of [address] [facility] (61582) Platelets (Bld) 224 10*3/uL Invalid 150-400 Hospita 11-29 [#/Vol] Interpreta K/uL l 019 tion Code Distric 16:32-0 [address] [place] [address] () PT Coag (PPP) [Time] 10.0 Invalid 9.9-12.8 [facility] Code Distric 16:32-0 [address] [place] [address] () RBC (Bld) [#/Vol] 4.88 10*6/uL Invalid 3.60-5.00 Hospita Interpreta M/uL l 019 tion Code Distric 16:32-0 t #[address] of [address] [facility] (55191) WBC (Bld) [#/Vol] 9.36 10*3/uL Invalid 5.00-10.00 Hospita 0 Interpreta K/uL l 019 tion Code Distric 16:32-0 [address] [place] [address] ([id number]) cardiac on 2018-11-29 CK.MB [Mass/Vol] 0.3 ng/mL Invalid 0.0-9.2 Hospita Interpreta ng/ml l 019 tion Code Distric 16:32-0 t #[address] of [address] [facility] ([id number]) Myoglobin [Mass/Vol] 21.4 ng/mL Invalid 1.6-106.0 Hospita 0 11-29- Interpreta ng/ml l 019 tion Code Distric 16:32-0 [address] [place] [address] ([id number]) Troponin I.cardiac ng/mL Invalid 0.0-0.4 Hospita 07-2 0-2 [Mass/Vol] Interpreta ng/mL l 019 tion Code Distric 16:32-0 [address] [place] [address] ([id number]) thyroid on 2018-09-26 TSH Qn 0.72 m[IU]/L Normal 0.40-4.50 Communi mIU/L ty [facility] (08855) other on 2018-09-26 Albumin/Globulin 1.7 Normal 1.0-2.5 Communi [Mass ratio] (calc) ty [facility] ([id number]) Cholesterol non HDL 131 High <130 mg/dL Commun i [Mass/Vol] (calc) ty [facility] (04591) Cholesterol.total/Ch 3.4 Normal <5.0 Commu ni olesterol in HDL (calc) ty [Mass ratio] [facility] (22286) GFR/1.73 sq 92 mL/min/{1.73_m2} Normal > OR = 60 Commun i M.predicted MDRD mL/min/1.7 ty (S/P/Bld) [Vol 3m2 Health rate/Area] [facility] (34225) Globulin (S) 2.5 Normal 1.9-3.7 Communi [Mass/Vol] g/dL ty (calc) [facility] (37671) metabolic panel on 2018-09-26 Albumin [Mass/Vol] 4.3 g/dL Normal 3.6-5.1 Communi g/dL ty [facility] (33756) ALP [Catalytic 50 U/L Normal 33-130 U/L Communi activity/Vol] ty [facility] (29684) ALT [Catalytic 8 U/L Normal 6-29 U/L Communi activity/Vol] ty [facility] (45917) AST [Catalytic 12 U/L Normal 10-35 U/L Communi activity/Vol] ty [facility] (67153) Bilirubin [Mass/Vol] 0.8 mg/dL Normal 0.2-1.2 Commu ni mg/dL ty [facility] (10006) Calcium [Mass/Vol] 9.8 mg/dL Normal 8.6-10.4 Communi mg/dL ty [facility] (12231) Chloride [Moles/Vol] 105 mmol/L Normal 98-110 Commu ni mmol/L ty [facility] (21114) CO2 [Moles/Vol] 29 mmol/L Normal 20-32 Communi mmol/L ty [facility] (55777) Creatinine 0.68 mg/dL Normal 0.50-0.99 Communi [Mass/Vol] mg/dL ty [facility] (79330) GFR/1.73 sq M 106 mL/min/{1.73_m2} Normal > OR = 60 Com earline predicted among mL/min/1.7 ty blacks MDRD [address] [place] [address] (S/P/d) [Vol Center rate/Area] [facility] (57190) Glucose [Mass/Vol] 190 mg/dL High 65-99 Communi mg/dL [facility] (81234) Potassium 4.0 mmol/L Normal 3.5-5.3 Communi [Moles/Vol] mmol/L ty [facility] (27928) Protein [Mass/Vol] 6.8 g/dL Normal 6.1-8.1 Communi g/dL [facility] (07808) Sodium [Moles/Vol] 142 mmol/L Normal 135-146 Communi mmol/L ty [facility] (44100) Urea nitrogen 15 mg/dL Normal 7-25 mg/dL Communi [Mass/Vol] ty [facility] (15074) Urea NOT APPLICABLE Invalid 6-22 Communi nitrogen/Creatinine Interpreta (calc) ty [Mass ratio] tion Code [facility] (89199) cardiac on 2018-09-26 Cholesterol 186 mg/dL Normal <200 mg/dL Communi [Mass/Vol] ty [facility] (87102) Cholesterol in HDL 55 mg/dL Normal >50 mg/dL Communi [Mass/Vol] [facility] (06110) Cholesterol in LDL 98 Normal mg/dL Communi [Mass/Vol] (calc) [facility] (47131) Triglyceride 221 mg/dL High <150 mg/dL Communi [Mass/Vol] [facility] (90117) venous blood hemoglobin measurement (mass/volume) on 2018-04-05 Hemoglobin mass conc 12.2 g/dL Invalid 11.5-16.0 Via (Bld) Interpreta Loli tion Code [facility] (94137) urine urobilinogen measurement by automated test strip (mass/volume) on 2018-04-05 Urobilinogen Test NORMAL Invalid NORMAL Via strip Qn (U) Interpreta Loli tion Code [facility] (86314) urine total bilirubin detection by test strip on 2018-04-05 Bilirubin Ql (U) Negative Invalid NEGATIVE Via Interpreta Loli tion Code [facility] ([id number]) urine protein assay by test strip, semi-quantitative on 2018-04-05 Protein Test strip Negative Invalid NEGATIVE Via Ql (U) Interpreta Loli tion Code [facility] (38887) urine ph measurement by test strip on 2018-04-05 pH Test strip (U) 7 [pH] Invalid 5-9 Via Interpreta Loli tion Code [facility] (48422) urine nitrite detection by test strip on 2018-04-05 Nitrite Test strip Negative Invalid NEGATIVE Via Ql (U) Interpreta Loli tion Code [facility] ([id number]) urine leukocyte esterase detection by dipstick on 2018-04-05 Leukocyte esterase Negative Invalid NEGATIVE Via Test strip Ql (U) Interpreta Loli tion Code [facility] (77611) urine ketones detection by automated test strip on 2018-04-05 Ketones Automated Negative Invalid NEGATIVE Via test strip Ql (U) Interpreta L[facility] tion Code [facility] ([id number]) urine glucose detection by automated test strip on 2018-04-05 Glucose Automated Negative Invalid NEGATIVE Via test strip Ql (U) Interpreta Loli tion Code [facility] ([id number]) urine color determination on 2018-04-05 Color Nom (U) YELLOW Invalid Via Interpreta Loli tion Code [facility] (65963) urine clarity determination on 2018-04-05 Clarity Nom (U) CLEAR Invalid Via Interpreta Loli tion Code [facility] ([id number]) specific gravity of urine by test strip on 2018-04-05 Specific gravity 1.005 Invalid 1.016-1.02 Via Relative Density (U) Interpreta 2 Loli tion Code [facility] () serum or plasma urea nitrogen/creatinine mass ratio on 2018-04-05 Urea 25 mg/mg Invalid Via nitrogen/Creatinine Interpreta Loli mass ratio tion Code [facility] (54735) serum or plasma urea nitrogen measurement (mass/volume) on 2018-04-05 Urea nitrogen mass 19 mg/dL High 7-18 Via conc Loli [facility] ([id number]) serum or plasma sodium measurement (moles/volume) on 2018-04-05 Sodium molar conc 141 mmol/L Invalid 135-145 Via Interpreta Loli tion Code [facility] () serum or plasma potassium measurement (moles/volume) on 2018-04-05 Potassium molar conc 3.5 mmol/L Low 3.6-5.0 Via Loli [facility] () serum or plasma glucose measurement (mass/volume) on 2018-04-05 Glucose mass conc 137 mg/dL High 70-105 [facility] ([id number]) serum or plasma creatinine measurement with calculation of estimated glomerular filtration rate on 2018-04-05 GFR/1.73 sq M Invalid Via predicted among Interpreta [facility] non-blacks MDRD vol [facility]area (S/P/Bld) l [facility] (91443) serum or plasma creatinine measurement (mass/volume) on 2018-04-05 Creatinine mass conc 0.76 mg/dL Invalid 0.60-1.30 Via Interpreta Loli tion Code [facility] ([id number]) serum or plasma chloride measurement (moles/volume) on 2018-04-05 Chloride molar conc 105 mmol/L Invalid 98-107 Via Interpreta Loli tion Code [facility] ([id number]) serum or plasma calcium measurement (mass/volume) on 2018-04-05 Calcium mass conc 9.8 mg/dL Invalid 8.5-10.1 Via Interpreta Loli tion Code [facility] ([id number]) serum or plasma anion gap determination (moles/volume) on 2018-04-05 Anion gap 3 molar 11 mmol/L Invalid 5-14 Via conc Interpreta Loli tion Code [facility] ([id number]) mucus detection in urine sediment by light microscopy on 2018-04-05 Mucus LM Ql (Urine Negative Invalid Via sed) [facility]ta [facility] ([id number][facility] erythrocytes detection in urine sediment by light microscopy on 2018-04-05 RBC LM Ql (Urine Negative Invalid NEGATIVE Via sed) Interpreta Loli tion Code [facility] ([id number]) crystals detection in urine sediment by light microscopy on 2018-04-05 Crystals LM Ql NONE Invalid Via (Urine sed) Interpreta [facility] ([id number]) complete urinalysis with reflex to culture on 2018-04-05 Urinalysis complete NO Invalid Via W Reflex Culture Interpreta Loli panel - Urine [facility] ([id number]) casts detection in urine sediment by light microscopy on 2018-04-05 Casts LM Ql (Urine NONE Invalid Via sed) Interpreta [facility] ([id number]) carbon dioxide on 2018-04-05 CO2 molar conc 25 mmol/L Invalid 21-32 Via Interpreta [facility] ([id number]) blood neutrophils automated count (number/volume) on 2018-04-05 Neutrophils Auto 4.2 10*3/uL Invalid 1.8-7.8 Via #/vol (Bld) Interpreta Loli tion Code [facility] ([id number]) blood monocytes/100 leukocytes on 2018-04-05 Monocytes/100 WBC 10 % Invalid 0-12 Via Auto (Bld) Interpreta Loli tion Code [facility] ([id number]) blood monocytes automated count (number/volume) on 2018-04-05 Monocytes Auto #/vol 0.7 10*3/uL Invalid 0.0-1.0 Via (Bld) Interpreta Loli tion Code [facility] ([id number]) blood lymphocytes automated count (number/volume) on 2018-04-05 Lymphocytes Auto 2.4 10*3/uL Invalid 1.0-4.0 Via #/vol (Bld) Interpreta Loli tion Code [facility] ([id number]) blood leukocytes automated count (number/volume) on 2018-04-05 WBC Auto #/vol (Bld) 7.8 10*3/uL Invalid 4.3-11.0 Via Interpreta Loli tion Code [facility] ([id number]) blood hematocrit (volume fraction) on 2018-04-05 Hematocrit Auto 36 % Invalid 35-52 Via Volume Fraction Interpreta Loli (Bld) tion Code [facility] (83529) blood erythrocytes automated count (number/volume) on 2018-04-05 RBC Auto #/vol (Bld) 4.68 10*6/uL Invalid 4.35-5.85 Via Interpreta Loli tion Code [facility] ([id number]) bacteria detection in urine sediment by light microscopy on 2018-04-05 Bacteria LM Ql Negative Invalid Via (Urine sed) Interpreta Loli tion Code [facility] ([id number]) automated urine sediment leukocyte count by microscopy (number/high power field) on 2018-04-05 WBC LM.HPF #/area NONE Invalid Via (Urine sed) Interpreta Loli tion Code [facility] ([id number]) automated urine sediment erythrocyte count by microscopy (number/high power field) on 2018-04-05 RBC LM.HPF #/area NONE Invalid Via (Urine sed) Interpreta Loli tion Code [facility] ([id number]) automated erythrocyte mean corpuscular volume on 2018-04-05 MCV Auto Entitic 78 fL Low 80-99 Via volume (RBC) Loli [facility] ([id number]) automated erythrocyte mean corpuscular hemoglobin concentration measurement (mass/volume) on 2018-04-05 MCHC Auto mass conc 34 g/dL Invalid 32-36 Via (RBC) Interpreta Loli tion Code [facility] ([id number]) automated erythrocyte mean corpuscular hemoglobin (mass per erythrocyte) on 2018-04-05 MCH Auto Entitic 26 pg Invalid 25-34 Via mass (RBC) Interpreta Loli tion Code [facility] ([id number]) automated erythrocyte distribution width ratio on 2018-04-05 Erythrocyte 15.8 % High 10.0-14.5 Via distribution width Loli Auto Ratio (RBC) [facility] ([id number]) automated eosinophil count on 2018-04-05 Eosinophils Auto 0.3 10*3/uL Invalid 0.0-0.3 Via #/vol (Bld) Interpreta Loli tion Code [facility] ([id number]) automated blood platelet mean volume measurement on 2018-04-05 Platelet mean volume 11.1 fL High 7.4-10.4 Via Auto Entitic volume Loli (Bld) [facility] ([id number]) automated blood platelet count (count/volume) on 2018-04-05 Platelets Auto #/vol 229 10*3/uL Invalid 130-400 Via (Bld) Interpreta Loli tion Code [facility] (55333) automated blood neutrophils/100 leukocytes on 2018-04-05 Neutrophils/100 WBC 54 % Invalid 42-75 Via Auto (Bld) Interpreta Loli tion Code [facility] ([id number]) automated blood lymphocytes/100 leukocytes on 2018-04-05 Lymphocytes/100 WBC 31 % Invalid 12-44 Via Auto (Bld) Interpreta Loli tion Code [facility] ([id number]) automated blood eosinophils/100 leukocytes on 2018-04-05 Eosinophils/100 WBC 4 % Invalid 0-10 Via Auto (Bld) Interpreta Loli tion Code [facility] ([id number]) automated blood basophils/100 leukocytes on 2018-04-05 Basophils/100 WBC 1 % Invalid 0-10 Via Auto (Bld) Interpreta Loli tion Code [facility] ([id number]) automated blood basophil count (count/volume) on 2018-04-05 Basophils Auto #/vol 0.1 10*3/uL Invalid 0.0-0.1 Via (Bld) Interpreta Loli tion Code [facility] ([id number]) other on 2017-11-19 CLINICAL Normal Communi INFORMATION: [facility] (10465) COMMENT Invalid Communi Interpreta ty tion Code [facility] (76519) Frog Shaker Normal Communi (cervix/vaginal) [facility] (10425) Date of previous Normal Communi biopsy [facility] (71599) Date of previous PAP Normal Communi smear [facility] (63875) HPV mRNA E6/E7, Not Detected Normal NOT Communi SUREPATH VIAL DETECTED ty [facility] (26741) LMP: 50 Normal Communi ty [facility] (90695) Specimen source Cervix Normal Communi (cervix/vaginal) [facility] (12326) Statement of Normal Communi adequacy ty (cervix/vaginal) [facility] (80098) imm/path on 2017-11-19 Bacteria genital SEE NOTE Abnormal Communi culture ty [facility] (78910) Microscopic Invalid Communi observation in Interpreta ty cervix by stain tion Code [facility] (91910) thyroid on 2016-11-15 Parathyrin.intact 27 pg/mL Invalid 15-65 Not 11-15 [Mass/Vol] Interpreta pg/mL [facility] tion Code le 12:41-0 ([id number]) 400 TSH Qn 1.360 Invalid 0.450-4.50 Not Interpreta 0 uIU/mL [facility] 017 tion Code le 09:10-0 (70323) 400 other on 2016-11-15 Albumin/Globulin 1.9 {ratio} Invalid 1.2-2.2 Not 07-0 6-2 [Mass ratio] Interpreta [facility] tion Code le 09:03-0 ([id number]) 400 Globulin (S) 2.3 g/dL Invalid 1.5-4.5 Not [Mass/Vol] Interpreta g/dL [facility] tion Code le 09:03-0 (68942) 400 metabolic panel on 2016-11-15 Albumin [Mass/Vol] 4.3 g/dL Invalid 3.6-4.8 Not 07-0 6-2 Interpreta g/dL [facility] tion Code le 09:03-0 (49319) 400 ALP [Catalytic 36 U/L Low 39-117 Not activity/Vol] IU/L [facility] 017 le 09:03-0 (32143) 400 ALT [Catalytic 15 U/L Invalid 0-32 IU/L Not activity/Vol] Interpreta [facility] tion Code le 09:03-0 (62276) 400 AST [Catalytic 16 U/L Invalid 0-40 IU/L Not activity/Vol] Interpreta [facility] tion Code le 09:03-0 (48062) 400 Bilirubin [Mass/Vol] 0.5 mg/dL Invalid 0.0-1.2 Not Interpreta mg/dL [facility] tion Code le 09:03-0 (88059) 400 Calcium [Mass/Vol] 10.3 mg/dL Invalid 8.7-10.3 Not 10-12 Interpreta mg/dL [facility] tion Code le 09:03-0 (79632) 400 Chloride [Moles/Vol] 96 mmol/L Invalid 96-106 Not Interpreta mmol/L [facility] tion Code le 07:54-0 (98668) 400 CO2 [Moles/Vol] 24 mmol/L Invalid 18-29 Not Interpreta mmol/L [facility] tion Code le 09:03-0 (47642) 400 Creatinine 0.87 mg/dL Invalid 0.57-1.00 Not [Mass/Vol] Interpreta mg/dL [facility] tion Code le 07:58-0 (33913) 400 GFR/1.73 sq M 82 mL/min/{1.73_m2} Invalid >59 Not predicted among Interpreta mL/min/1.7 [facility] 017 blacks MDRD tion Code 3 le 07:58-0 (S/P/Bld) [Vol (26268) 400 rate/Area] GFR/1.73 sq M 71 mL/min/{1.73_m2} Invalid >59 Not predicted among Interpreta mL/min/1.7 [facility] 017 non-blacks MDRD tion Code 3 le 07:58-0 (S/P/Bld) [Vol (12364) 400 rate/Area] Glucose [Mass/Vol] 95 mg/dL Invalid 65-99 Not 07-0 6-2 Interpreta mg/dL [facility] tion Code le 09:03-0 (58682) 400 Magnesium [Mass/Vol] 1.7 mg/dL Invalid 1.6-2.3 Not 2 Interpreta mg/dL [facility] tion Code le 09:14-0 (64062) 400 Potassium 4.0 mmol/L Invalid 3.5-5.2 Not 06-2 [Moles/Vol] Interpreta mmol/L [facility] tion Code le 07:54-0 (78058) 400 Protein [Mass/Vol] 6.6 g/dL Invalid 6.0-8.5 Not 07-0 6-2 Interpreta g/dL [facility] tion Code le 09:03-0 (11070) 400 Sodium [Moles/Vol] 138 mmol/L Invalid 134-144 Not -2 Interpreta mmol/L [facility] tion Code le 07:54-0 (29757) 400 Urea nitrogen 15 mg/dL Invalid 8-27 mg/dL Not [Mass/Vol] Interpreta [facility] tion Code le 09:03-0 (31701) 400 Urea 17 mg/mg Invalid 12-28 Not 2 nitrogen/Creatinine Interpreta [facility] 017 [Mass ratio] tion Code le 09:03-0 (08621) 400 other on 2016-10-04 Albumin/Globulin 1.9 {ratio} Invalid 1.2-2.2 Not 05-2 5-2 [Mass ratio] Interpreta [facility] tion Code le 09:21-0 (19527) 400 Globulin (S) 2.3 g/dL Invalid 1.5-4.5 Not 05-25-2 [Mass/Vol] Interpreta g/dL [facility] tion Code le 09:21-0 (87466) 400 metabolic panel on 2016-10-04 Albumin [Mass/Vol] 4.4 g/dL Invalid 3.6-4.8 Not 05-2 5-2 Interpreta g/dL [facility] tion Code le 09:21-0 (68325) 400 ALP [Catalytic 36 U/L Low 39-117 Not 05-25-2 activity/Vol] IU/L [facility] 017 le 09:21-0 (49829) 400 ALT [Catalytic 13 U/L Invalid 0-32 IU/L Not 05-25-2 activity/Vol] Interpreta [facility] 017 tion Code le 09:21-0 (61623) 400 AST [Catalytic 17 U/L Invalid 0-40 IU/L Not 05-25-2 activity/Vol] Interpreta [facility] tion Code le 09:21-0 (16776) 400 Bilirubin [Mass/Vol] 0.4 mg/dL Invalid 0.0-1.2 Not 05 -25-2 Interpreta mg/dL [facility] tion Code le 09:21-0 (92710) 400 Calcium [Mass/Vol] 10.4 mg/dL High 8.7-10.3 Not 05- 25-2 mg/dL [facility] 017 le 09:21-0 (81481) 400 Chloride [Moles/Vol] 99 mmol/L Invalid 96-106 Not 05 -25-2 Interpreta mmol/L [facility] tion Code le 08:-0 (45365) 400 CO2 [Moles/Vol] 29 mmol/L Invalid 18-29 Not 05-25-2 Interpreta mmol/L [facility] tion Code le 09:-0 (72647) 400 Creatinine 0.95 mg/dL Invalid 0.57-1.00 Not 05-25-2 [Mass/Vol] Interpreta mg/dL [facility] tion Code le 09:-0 (55384) 400 GFR/1.73 sq M 74 mL/min/{1.73_m2} Invalid >59 Not 05-25-2 predicted among Interpreta mL/min/1.7 [facility] 017 blacks MDRD tion Code 3 le 09:21-0 (S/P/Bld) [Vol (50296) 400 rate/Area] GFR/1.73 sq M 64 mL/min/{1.73_m2} Invalid >59 Not 05-25-2 predicted among Interpreta mL/min/1.7 [facility] 0[facility] non-blacks MDRD tion Code 3 le 09:21-0 (S/P/Bld) [Vol (54812) 400 rate/Area] Glucose [Mass/Vol] 99 mg/dL Invalid 65-99 Not 05-2 5-2 Interpreta mg/dL [facility] tion Code le 09:21-0 (85147) 400 Potassium 4.2 mmol/L Invalid 3.5-5.2 Not 05-25-2 [Moles/Vol] Interpreta mmol/L [facility] tion Code le 08:01-0 (28033) 400 Protein [Mass/Vol] 6.7 g/dL Invalid 6.0-8.5 Not 05-2 5-2 Interpreta g/dL [facility] tion Code le 09:21-0 (95170) 400 Sodium [Moles/Vol] 144 mmol/L Invalid 134-144 Not 25-2 Interpreta mmol/L [facility] tion Code le 08:-0 (59044) 400 Urea nitrogen 19 mg/dL Invalid 8-27 mg/dL Not 10-04-2 [Mass/Vol] Interpreta [facility] tion Code le 09:-0 (67274) 400 Urea 20 mg/mg Invalid 12-28 Not 10-04-2 nitrogen/Creatinine Interpreta [facility] 0[facility] [Mass ratio] tion Code le 09:-0 (45774) 400 other on 2016-07-18 Albumin/Globulin 1.8 {ratio} Invalid 1.1-2.5 Not 03-0 8-2 [Mass ratio] Interpreta [facility] tion Code le 09: (96544) 500 Globulin (S) 2.4 g/dL Invalid 1.5-4.5 Not 07-18-2 [Mass/Vol] Interpreta g/dL [facility] tion Code le 09:-0 (13725) 500 metabolic panel on 2016-07-18 Albumin [Mass/Vol] 4.4 g/dL Invalid 3.6-4.8 Not 03-0 8-2 Interpreta g/dL [facility] tion Code le 09:-0 (09404) 500 ALP [Catalytic 51 U/L Invalid 39-117 Not 07-18-2 activity/Vol] Interpreta IU/L [facility] tion Code le 09:0 (59604) 500 ALT [Catalytic 13 U/L Invalid 0-32 IU/L Not 07-18-2 activity/Vol] Interpreta [facility] tion Code le 09:09-0 (81444) 500 AST [Catalytic 15 U/L Invalid 0-40 IU/L Not 07-18-2 activity/Vol] Interpreta [facility] tion Code le 09:-0 (85357) 500 Bilirubin [Mass/Vol] 0.3 mg/dL Invalid 0.0-1.2 Not -2 Interpreta mg/dL [facility] tion Code le 09:09-0 (81730) 500 Calcium [Mass/Vol] 9.7 mg/dL Invalid 8.7-10.3 Not 03-0 8-2 Interpreta mg/dL [facility] tion Code le 09:-0 (33983) 500 Chloride [Moles/Vol] 99 mmol/L Invalid 96-106 Not 08-2 Interpreta mmol/L [facility] tion Code le 09:0 (19974) 500 CO2 [Moles/Vol] 30 mmol/L High 18-29 Not 08-2 mmol/L [facility] 017 le 09:0 (85465) 500 Creatinine 0.92 mg/dL Invalid 0.57-1.00 Not 07-18-2 [Mass/Vol] Interpreta mg/dL [facility] tion Code le 09:0 (18430) 500 GFR/1.73 sq M 77 mL/min/{1.73_m2} Invalid >59 Not 07-18-2 predicted among Interpreta mL/min/1.7 [facility] 017 blacks MDRD tion Code 3 le 09:-0 (S/P/Bld) [Vol (24698) 500 rate/Area] GFR/1.73 sq M 67 mL/min/{1.73_m2} Invalid >59 Not 2 predicted among Interpreta mL/min/1.7 [facility] 017 non-blacks MDRD tion Code 3 le 09:-0 (S/P/Bld) [Vol (69517) 500 rate/Area] Glucose [Mass/Vol] 93 mg/dL Invalid 65-99 Not 03-0 8-2 Interpreta mg/dL [facility] tion Code le 09:0 (21387) 500 Potassium 4.0 mmol/L Invalid 3.5-5.2 Not 08-2 [Moles/Vol] Interpreta mmol/L [facility] tion Code le 09:-0 (03690) 500 Protein [Mass/Vol] 6.8 g/dL Invalid 6.0-8.5 Not 03-0 8-2 Interpreta g/dL [facility] tion Code le 09:-0 (12027) 500 Sodium [Moles/Vol] 143 mmol/L Invalid 134-144 Not 08-2 Interpreta mmol/L [facility] tion Code le 09:09-0 (07709) 500 Urea nitrogen 12 mg/dL Invalid 8-27 mg/dL Not [Mass/Vol] Interpreta [facility] tion Code le 09:09-0 (74049) 500 Urea 13 mg/mg Invalid 04-07 Not nitrogen/Creatinine Interpreta [facility] 017 [Mass ratio] tion Code le 09:09-0 (90198) 500 other on 2016-05-15 25-Hydroxyvitamin 9.2 Low 30.0-100.0 Not 3-2 D2+25-Hydroxyvitamin ng/mL [facility] 017 D3 [Mass/Vol] le 11:11-0 (95716) 500 thyroid on 2016-05-12 TSH Qn 3.860 Invalid 0.450-4.50 Not Interpreta 0 uIU/mL [facility] 016 tion Code le 09:13-0 (39827) 500 other on 2016-05-12 Albumin/Globulin 1.9 {ratio} Invalid 1.1-2.5 Not 04-14 1-2 [Mass ratio] Interpreta [facility] tion Code le 09:06-0 (49872) 500 Cholesterol in VLDL 31 mg/dL Invalid 5-40 mg/dL Not [Mass/Vol] Interpreta [facility]16 tion Code le 09:38-0 (15778) 500 Erythrocyte 15.3 % Invalid 12.3-15.4 Not distribution width Interpreta % [facility] 016 (RBC) [Ratio] tion Code le 08:20-0 (19598) 500 Globulin (S) 2.4 g/dL Invalid 1.5-4.5 Not [Mass/Vol] Interpreta g/dL [facility] tion Code le 09:06-0 (90864) 500 Immature 0.1 10*3/uL Invalid 0.0-0.1 Not granulocytes (Bld) Interpreta x10E3/uL [facility] 0[facility] [#/Vol] tion Code le 08:20-0 (94400) 500 Immature 1 % Invalid % Not granulocytes/100 WBC Interpreta [facility] 0[facility] (Bld) tion Code le 08:20-0 (85488) 500 MCHC (RBC) 32.9 g/dL Invalid 31.5-35.7 Not 05-12-2 [Mass/Vol] Interpreta g/dL [facility] tion Code le 08:20-0 (14171) 500 metabolic panel on 2016-05-12 Albumin [Mass/Vol] 4.5 g/dL Invalid 3.6-4.8 Not 12-3 1-2 Interpreta g/dL [facility] tion Code le 09:06-0 (90585) 500 ALP [Catalytic 38 U/L Low 39-117 Not 05-12-2 activity/Vol] IU/L [facility] 016 le 09:06-0 (44079) 500 ALT [Catalytic 11 U/L Invalid 0-32 IU/L Not activity/Vol] Interpreta [facility] 016 tion Code le 09:06-0 (74866) 500 AST [Catalytic 15 U/L Invalid 0-40 IU/L Not activity/Vol] Interpreta [facility]16 tion Code le 09:06-0 (28734) 500 Bilirubin [Mass/Vol] 0.5 mg/dL Invalid 0.0-1.2 Not -2 Interpreta mg/dL [facility]16 tion Code le 09:06-0 (77695) 500 Calcium [Mass/Vol] 9.9 mg/dL Invalid 8.7-10.3 Not 12-3 1-2 Interpreta mg/dL [facility]16 tion Code le 09:06-0 (24108) 500 Chloride [Moles/Vol] 101 mmol/L Invalid 96-106 Not 1 -2 Interpreta mmol/L [facility]16 tion Code le 09:06-0 (53097) 500 CO2 [Moles/Vol] 27 mmol/L Invalid 18-29 Not 05-12-2 Interpreta mmol/L [facility]16 tion Code le 09:06-0 (94197) 500 Creatinine 1.20 mg/dL High 0.57-1.00 Not 05-12-2 [Mass/Vol] mg/dL [facility] 016 le 09:06-0 (92398) 500 GFR/1.73 sq M 56 mL/min/{1.73_m2} Low >59 Not predicted among mL/min/1.7 [facility] 016 blacks MDRD 3 le 09:06-0 (S/P/Bld) [Vol (96283) 500 rate/Area] GFR/1.73 sq M 49 mL/min/{1.73_m2} Low >59 Not predicted among mL/min/1.7 [facility] 016 non-blacks MDRD 3 le 09:06-0 (S/P/Bld) [Vol (62039) 500 rate/Area] Glucose [Mass/Vol] 89 mg/dL Invalid 65-99 Not - 1-2 Interpreta mg/dL [facility] 016 tion Code le 09:06-0 (43432) 500 Potassium 4.2 mmol/L Invalid 3.5-5.2 Not [Moles/Vol] Interpreta mmol/L [facility]16 tion Code le 09:06-0 (92682) 500 Protein [Mass/Vol] 6.9 g/dL Invalid 6.0-8.5 Not 04-14 1-2 Interpreta g/dL [facility] 016 tion Code le 09:06-0 (19976) 500 Sodium [Moles/Vol] 145 mmol/L High 134-144 Not -2 mmol/L [facility] 016 le 09:06-0 (14826) 500 Urea nitrogen 29 mg/dL High 8-27 mg/dL Not [Mass/Vol] [facility] 016 le 09:06-0 (14665) 500 Urea 24 mg/mg Invalid 11-26 Not nitrogen/Creatinine Interpreta Availab 016 [Mass ratio] tion Code le 09:06-0 ([id number]) 500 hematology on 2016-05-12 Basophils (Bld) 0.1 10*3/uL Invalid 0.0-0.2 Not 05-12 [#/Vol] Interpreta x10E3/uL Availab 016 tion Code le 08:20-0 ([id number]) 500 Basophils/100 WBC 1 % Invalid % Not 05-12 (Bld) Interpreta Availab 016 tion Code le 08:20-0 ([id number]) 500 Eosinophils (Bld) 0.3 10*3/uL Invalid 0.0-0.4 Not [#/Vol] Interpreta x10E3/uL Availab 016 tion Code le 08:20-0 (58907) 500 Eosinophils/100 WBC 3 % Invalid % Not (Bld) Interpreta Availab 016 tion Code le 08:20-0 ([id number]) 500 Hematocrit (Bld) 41.7 % Invalid 34.0-46.6 Not [Volume fraction] Interpreta % Availab 016 tion Code le 08:20-0 ([id number]) 500 Hemoglobin (Bld) 13.7 g/dL Invalid 11.1-15.9 Not [Mass/Vol] Interpreta g/dL Availab 016 tion Code le 08:20-0 (04152) 500 Lymphocytes (Bld) 4.6 10*3/uL High 0.7-3.1 Not [#/Vol] x10E3/uL Availab 016 le 08:20-0 ([id number]) 500 Lymphocytes/100 WBC 41 % Invalid % Not (Bld) Interpreta Availab 016 tion Code le 08:20-0 (66708) 500 MCH (RBC) [Entitic 27.3 pg Invalid 26.6-33.0 Not -3 1-2 mass] Interpreta pg Availab 016 tion Code le 08:20-0 (28554) 500 MCV (RBC) [Entitic 83 fL Invalid 79-97 fL Not 12-3 1-2 vol] Interpreta Availab 016 tion Code le 08:20-0 (35821) 500 Monocytes (Bld) 1.1 10*3/uL High 0.1-0.9 Not 05-12 [#/Vol] x10E3/uL Availab 016 le 08:20-0 (40340) 500 Monocytes/100 WBC 10 % Invalid % Not 05-12 (Bld) Interpreta Availab 016 tion Code le 08:20-0 (29555) 500 Neutrophils (Bld) 5.0 10*3/uL Invalid 1.4-7.0 Not [#/Vol] Interpreta x10E3/uL Availab 016 tion Code le 08:20-0 (71106) 500 Neutrophils/100 WBC 44 % Invalid % Not (Bld) Interpreta Availab 016 tion Code le 08:20-0 (96706) 500 Platelets (Bld) 267 10*3/uL Invalid 150-379 Not 05-12 -2 [#/Vol] Interpreta x10E3/uL Availab 016 tion Code le 08:20-0 (62334) 500 RBC (Bld) [#/Vol] 5.02 10*6/uL Invalid 3.77-5.28 Not - Interpreta x10E6/uL Availab 016 tion Code le 08:20-0 ([id number]) 500 WBC (Bld) [#/Vol] 11.2 10*3/uL High 3.4-10.8 Not - x10E3/uL Availab 016 le 08:20-0 ([id number]) 500 cardiac on 2016-05-12 Cholesterol 189 mg/dL Invalid 100-199 Not 05-12-2 [Mass/Vol] Interpreta mg/dL Availab 016 tion Code le 09:29-0 ([id number]) 500 Cholesterol in HDL 64 mg/dL Invalid >39 mg/dL Not 04-14 1-2 [Mass/Vol] Interpreta Availab 016 tion Code le 09:38-0 (54709) 500 Cholesterol in LDL 94 mg/dL Invalid 0-99 mg/dL Not - [Mass/Vol] Interpreta Availab 016 tion Code le 09:38-0 ([id number]) 500 Triglyceride 156 mg/dL High 0-149 Not 05-12-2 [Mass/Vol] mg/dL Availab 016 le 09:38-0 (33930) 500 Social History The data below is from unstructured sources History Response Recorde d Date/Time Alcohol Use Denies Use 0 10/04/12 5:05pm Recreational Drug Use N 10/04/12 5:05pm Recent Foreign Travel N 10/04/12 5:05pm Recent Infectious Disease Exposure N 10/04/12 5:05pm History Response Recorde d Date/Time Alcohol Use Denies Use 1 5:54pm Recreational Drug Use N 02/22/13 5:54pm Recent Foreign Travel N 02/22/13 5:54pm History Response Recorde d Date/Time Alcohol Use Denies Use 0 12/17/12 11:52pm Recreational Drug Use N 12/17/12 11:52pm Recent Foreign Travel N 12/17/12 11:52pm Vital Signs Date Time Vital Sign Value Performing Clinician Honorio rios 11-19-2017 BMI (Body Mass 27.93 kg/m2 [facility] ealt 11:00-0400 Index) [facility] ([id number]) 11-19-2017 Body Temperature 98.4 [degF] [facility] 11:00-0400 [facility] ([id number]) 11-19-2017 Height 163.83 cm [facility] 11:00-0400 [facility] ([id number]) 11-19-2017 Weight 74.98 kg [facility] 11:000400 [facility] ([id number]) Functional Status The data below is from unstructured sources Query Response Date Shyam rded Patient Orientation Person June 27, 2016 6:04pm Query Response Date Shyam rded Patient Orientation Person Place Time Situation Normal For Age January 08, 2014 9:42am Comprehension Ability Understands Co ncepts January 08, 2014 9:42am Query Response Date Shyam rded Patient Orientation Person Place Time Situation December 04, 2013 10:27am Comprehension Ability Understands Co ncepts December 04, 2013 8:00am Query Response Date Shyam rded Comprehension Ability Understands Co ncepts April 05, 2018 9:00pm Mental Status No Information History general Narrative - Reported Note Date & Note Facility Type History general Narrative - Reported Type Medical type II diabetes History Medical Hypothyroidism History Medical hypertension History Medical heart disease History Medical Hyperlipidemia History Medical CAD History Medical Sent circumflex Artery Yen i History Medical Paresthesia of both hands History Medical Vertigo History Surgical cholecystectomy History Surgical hernia repair History Surgical carotid endarterectomy History Surgical 2 stents placed-cardiac History Surgical cataract surgery History Surgical Limpoma removed from her back 2018 History Hospitalizatio black out spells n History Hospitalizatio Surgery(s) only n History [facility] ([id number]) Summary Purpose eClinicalWorks Submission Advance Directives Directive Response Recor ded Date/Time Advance Directives No 8:36pm Health Care Power of Printed Circuit [employer] Pcb Designer No 02/04/16 8:36pm Organ Donor No 02/04/16 8:36pm Resuscitation Status Full Code 02/04/16 8:36pm Directive Response Recor ded Date/Time Advance Directives No 6:56pm Health Care Power of Printed Circuit [employer] Pcb Designer No 03/07/16 6:56pm Organ Donor No 03/07/16 6:56pm Resuscitation Status Full Code 03/07/16 6:56pm Directive Response Recor ded Date/Time Advance Directives No 3:25pm Health Care Power of Printed Circuit [employer] Pcb Designer No 05/02/16 3:25pm Organ Donor No 05/02/16 3:25pm Resuscitation Status Full Code 05/02/16 3:25pm Directive Response Recor ded Date/Time Advance Directives No 8:55am Health Care Power of Printed [employer] Pcb Designer No 06/27/16 8:55am Organ Donor No 06/27/16 8:55am Resuscitation Status Full Code 06/27/16 8:55am Directive Response Recor ded Date/Time Advance Directives No 12:12am Health Care Power of Printed [employer] Pcb Designer No 06/03/15 12:12am Organ Donor No 06/03/15 12:12am Resuscitation Status Full Code 06/03/15 12:12am Directive Response Recor ded Date/Time Advance Directives No 12:12am Health Care Power of Printed Circuit [employer] Pcb Designer No 06/03/15 12:12am Organ Donor No 06/03/15 12:12am Directive Response Recor ded Date/Time Advance Directives No 10:23pm Health Care Power of Printed [employer] Pcb Designer No 10/07/15 10:23pm Organ Donor No 10/07/15 10:23pm Resuscitation Status Full Code 10/07/15 10:23pm Directive Response Recor ded Date/Time Advance Directives No 2:42pm Health Care Power of Printed [employer] Pcb Designer No 11/19/15 2:42pm Organ Donor No 11/19/15 2:42pm Resuscitation Status Full Code 11/19/15 2:42pm Directive Response Recor ded Date/Time Advance Directives No 7:30pm Health Care Power of Printed Circuit Board Pcb Designer No 04/05/15 7:30pm Organ Donor No 04/05/15 7:30pm Resuscitation Status Full Code 04/05/15 7:30pm Directive Response Recor ded Date/Time Advance Directives No 2:57pm Health Care Power of Printed Circuit Board Pcb Designer No 10/14/16 2:57pm Organ Donor No 10/14/16 2:57pm Resuscitation Status Full Code 10/14/16 2:57pm Directive Response Recor ded Date Advance Directives N 5:05pm Health Care Power of Printed Circuit Board Pcb Designer N 05/19/12 10:46am Organ Donor N 05/19/12 1 0:46am Directive Response Recor ded Date/Time Advance Directives No 1:22pm Health Care Power of Printed Circuit Board Pcb Designer No 08/15/14 1:22pm Organ Donor No 08/15/14 1:22pm Resuscitation Status Full Code 08/15/14 1:22pm Directive Response Recor ded Date/Time Advance Directives No 9:51pm Health Care Power of Printed Circuit Board Pcb Designer No 04/16/14 9:51pm Organ Donor No 04/16/14 9:51pm Resuscitation Status Full Code 04/16/14 9:51pm Directive Response Recor ded Date/Time Advance Directives No 11:10am Health Care Power of Printed Circuit Board Pcb Designer No 08/27/14 11:10am Organ Donor No 08/27/14 11:10am Resuscitation Status Full Code 08/27/14 11:10am Directive Response Recor ded Date/Time Advance Directives No 9:42am Health Care Power of Printed [employer] Pcb Designer No 01/08/14 9:42am Organ Donor No 01/08/14 9:42am Resuscitation Status Full Code 01/08/14 9:42am Directive Response Recor ded Date/Time Advance Directives No 12:09am Health Care Power of Printed [employer] Pcb Designer No 11/15/14 12:09am Organ Donor No 11/15/14 12:09am Resuscitation Status Full Code 11/15/14 12:09am Directive Response Recor ded Date/Time Advance Directives No 12:47am Health Care Power of Printed Circuit Board Pcb Designer No 12/01/13 8:18pm Organ Donor No 12/01/13 8:18pm Resuscitation Status Full Code 12/02/13 12:47am Resuscitation Status Full Code 12/01/13 11:21pm Directive Response Recor ded Date Advance Directives N 6:57am Health Care Power of Printed Circuit Board Pcb Designer N 03/09/13 6:57am Organ Donor N 03/09/13 6 :57am Directive Response Recor ded Date/Time Advance Directives No 5:08pm Health Care Power of Printed [employer] Board Pcb Designer No 09/11/14 5:08pm Organ Donor No 09/11/14 5:08pm Resuscitation Status Full Code 09/11/14 5:08pm Directive Response Recor ded Date/Time Advance Directives No 11:38pm Health Care Power of Printed Circuit Board Pcb Designer No 02/04/15 11:38pm Organ Donor No 02/04/15 11:38pm Resuscitation Status Full Code 02/04/15 11:38pm Directive Response Recor ded Date Advance Directives N 11/22 11:52pm Health Care Power of Printed Circuit Board Pcb Designer N 12/17/12 11:52pm Organ Donor N 12/17/12 1 1:52pm Directive Response Recor ded Date Advance Directives N 5:54pm Health Care Power of Printed Circuit Board Pcb Designer N 02/22/13 5:54pm Organ Donor N 02/22/13 5 :54pm Directive Response Recor ded Date/Time Advance Directives No 11:11am Health Care Power of Printed Circuit Board Pcb Designer No 10/06/14 11:11am Organ Donor No 10/06/14 11:11am Resuscitation Status Full Code 10/06/14 11:11am Directive Response Recor ded Date/Time Advance Directives No 12:50pm Health Care Power of Printed Circuit Board Pcb Designer No 09/08/14 12:50pm Organ Donor No 09/08/14 12:50pm Resuscitation Status Full Code 09/08/14 12:50pm Directive Response Recor ded Date/Time Advance Directives No 10:31pm Health Care Power of Printed Circuit Board Pcb Designer No 02/19/15 10:31pm Organ Donor No 02/19/15 10:31pm Resuscitation Status Full Code 02/19/15 10:31pm Directive Response Recor ded Date/Time Advance Directives No 11:10am Health Care Power of Printed Circuit Board Pcb Designer No 04/05/18 9:00pm Organ Donor No 04/05/18 9:00pm Resuscitation Status Full Code 04/12/18 11:10am Directive Response Recor ded Date/Time Advance Directives No 9:00pm Health Care Power of Printed Circuit Board Pcb Designer No 04/05/18 9:00pm Organ Donor No 04/05/18 9:00pm Resuscitation Status Full Code 04/05/18 9:00pm Directive Response Recor ded Date/Time Advance Directives No 12:03pm Health Care Power of Printed Circuit Board Pcb Designer No 10/03/18 12:03pm Organ Donor No 04/05/18 9:00pm Resuscitation Status Full Code 10/03/18 12:03pm Discharge Instructions No hospital discharge instructions.No hospital discharge instructions.No hospital discharge instructions. Patient Instructions Physician Instructions Follow Up/Plan Appointment [...] wrist. * Remove dressing in 24 hours. No hospital discharge instructions.Current inpatient/outpatient. Discharge instructions are currently unavailable.No hospital discharge instructions.No hospital discharge instructions.No hospital discharge instructions.No hospital discharge instruction information available.No hospital discharge instructions.No hospital discharge instructions.No hospital discharge instructions.No hospital discharge instructions.No hospital discharge instructions. Patient Instructions Physician Instructions Plan of Care/Instructions/FU: to be followed in the office next Saturday at 11 a.m. Activity as Tolerated: Yes Dicharge Diet: No Restrictions, ADA Diet No hospital discharge instructions.No hospital discharge instructions.No hospital discharge instructions.No hospital discharge instructions.No hospital discharge instructions.No hospital discharge instructions.No hospital discharge instruction information available.No hospital discharge instruction information available.No hospital discharge instruction information available. Chief Complaint and Reason for Visit Chief Complaint Trauma-Non Activatio n Reason for Visit Fall on same level from slipping, tripping or stumbling Minor head injury without loss of consciousness Contusion Chief Complaint Dizziness/Syncope Reason for Visit Hypertension Additional Source Comments This clinical document has been generated using [employer] software that has been certified by the Office of the National Coordinator for Health Information Technology (ONC 15.99.04.3023.Diam.[id number]) and the National Committee for [employer] Supervisor (NCQA, as an eMeasure certified technology). FOR RECORDS PERTAINING TO PATIENTS WHO ARE OR HAVE BEEN ENROLLED IN A CHEMICAL D EPENDENCY/SUBSTANCE ABUSE PROGRAM, SOME INFORMATION MAY BE OMITTED. This clinica l summary was aggregated from multiple sources. Caution should be exercised in using it in the provision of clinical care. This summary normalizes information from multiple sources, and as a consequence, information in this document may ma terially change the coding, format and clinical context of patient data. In marija tion, data may be omitted in some cases. CLINICAL DECISIONS SHOULD BE BASED ON T HE PRIMARY CLINICAL RECORDS. [employer] provides no warranty or guara ntee of the accuracy or completeness of information in this document.The followi ng information is based on time limited clinical information UNRECOGNIZED CONTENT PROVIDED BELOW FOR UNRECOGNIZED SECTION MEDICAL (GENERAL) HISTORY Type Description Date Medical History type II diabetes Medical History Hypothyroidism Medical History hypertension Medical History heart disease Medical History Hyperlipidemia Medical History CAD Medical History Sent circumflex [place] Surgical History cholecystectomy Surgical History hernia repair Surgical History carotid endarterectomy Surgical History 2 stents placed-cardiac Surgical History cataract surgery Hospitalization History black out spells Hospitalization History Surgery(s) only Type Description Date Surgical History cholecystectomy Surgical History hernia repair Surgical History carotid endarterectomy Surgical History 2 stents placed-cardiac Surgical History cataract surgery Hospitalization History black out spells Hospitalization History Surgery(s) only Type Description Date Medical History type II diabetes Medical History Hypothyroidism Medical History hypertension Medical History heart disease Medical History Hyperlipidemia Medical History CAD Medical History Sent circumflex [place] Medical History Paresthesia of both hands Medical History Vertigo Surgical History cholecystectomy Surgical History hernia repair Surgical History carotid endarterectomy Surgical History 2 stents placed-cardiac Surgical History cataract surgery Hospitalization History black out spells Hospitalization History Surgery(s) only UNRECOGNIZED CONTENT PROVIDED BELOW FOR UNRECOGNIZED SECTION REASON FOR VISIT Well Woman Exam. ERI TrejoRefill requestRefill RequestsControlled Med RefillRep ository MedicationRepository meds- LVMRepository medsRepository MedicationReques ts return callMedication refill requestRequests return callRequests return callr efill requestMedication refill [id number] EMR-MigRepository Medication Ordered
--- OUTSIDE RECORDS SUMMARY | 2019-12-23 06:53 | XMS REPORT | Clinical Summary ---
Author Author [facility] Organization [facility] Address Unknown Phone Unavailable Care Team Providers Care Aspnet Developer Name Role Phone Eda Seals CURING OVEN ATTENDANT PCP Source Comments Some departments are not documenting in the electronic medical record. If you d o not see the information that you expected, contact Release of Information in [facility] [employer] Information Management department at [phone] for further assistan ce in locating additional records.[facility] Allergies Comments Active Allergy Reactions Severity Noted Date Exenatide Microspheres HIVES Medium 017 Sulfa [facility]onamide [facility] 10/26/2016 Antibiotics) Medications End Date [...] travel history available. Last Filed Vital Signs Reading Time Taken Comments Vital Sign 166/71 10/15/2017 3:08 PM CDT Blood Pressure 67 10/15/2017 3:08 PM CDT Pulse 36.7 C (98 F) 10/15/2017 2:19 PM CDT Temperature 17 01/18/2017 12:47 PM CDT Respiratory Rate 99% 10/15/2017 3:08 PM CDT Oxygen Saturation - - Inhaled Oxygen Concentration 76.7 kg (169 lb) 10/15/2017 2:19 PM CDT Weight 167.6 cm (5' 6") 10/15/2017 2:19 PM CDT Height 27.28 10/15/2017 2:19 PM CDT Body Mass Index Plan of Treatment Health Maintenance Due Date Last Done Comments DTAP/TDAP VACCINES (1 - 07/29/1971 Tdap) HEPATITIS C SCREENING 07/29/1971 PHYSICAL (COMPREHENSIVE) 07/29/1971 EXAM BREAST CANCER SCREENING 1993 COLORECTAL CANCER 07/29/2003 SCREENING SHINGLES RECOMBINANT 07/29/2003 VACCINE (1 of 2) OSTEOPOROSIS 2018 SCREENING/MONITORING PNEUMONIA (PPSV23) 2018 VACCINE (1 of 1 - PPSV23) INFLUENZA VACCINE 02/11/2020 01/17/2016, 01/04/2011 Results Not on filefrom Last 3 Months Insurance Type Payer Benefit Subscriber ID Effective Phone Address Plan / Dates Group Medicaid [employer] [employer] xxxxxxxxxxx 2010- STATE Present HEALTH Medicare MEDICARE MEDICARE [id number] 2018-P PART A AND resent B [facility] ([place] [place] [id number] 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
--- OUTSIDE RECORDS SUMMARY | 2019-12-23 06:53 | XMS REPORT ---
Author Author Karla KENDRICK Organization [facility] Address [address] [place] [address] Care Team Providers Care Mold Builder Name Role Phone JASIEL Unavailable PROBLEMS Type Condition ICD9-CM Code OSX22-ZR Code Onset Dates Condition S tatus SNOMED Code Problem Vitamin D deficiency E55.9 Active 19797195 Problem Renal insufficiency N28.9 Active 675059543 Problem Coronary artery disease invo lving tat[place] coronary artery of [place] heart without angina pectoris I25.10 Active 1641 112999894 Problem Type 2 diabetes mellitus wit hout complication, without long-term current use of insulin E11.9 Active 088824759 Problem Mixed hyperlipidemia E78.2 Active 629376989 Problem Essential hypertension I10 Active 86567646 Problem Type 2 diabetes mellitus with diabetic chronic kidney disease E11.22 Active 82146912 Problem Chronic kidney disease, stage 1 N18.1 Active 843281704 Problem Low back pain M54.5 Active 658228 009 Problem Seasonal allergies J30.2 Active 4 54401263 Problem Restless leg syndrome G25.81 Active 29032380 Problem Grief F43.21 Active 196922336 Problem Acquired hypothyroidism E03.9 Active 367361993 Problem Osteoarthritis of spine with radiculopathy, cervical regio n M47.22 Active 989700693 Problem Bilateral carotid artery disease I77.9 Active 666047060 Problem Hypercalcemia E83.52 Active 651640 09 Problem Mixed incontinence N39.46 Active 4 33151226 ALLERGIES No Information ENCOUNTERS Encounter Location Date Diagnosis [facility] [id number] [place] [address] May, [facility] [address] [id number] [place] [address] May, [facility] [address] [id number] [place] [address] Mar, [place] [address] [address] Mar, Type 2 diabetes mellitus with diabetic c hronic kidney disease E11.22 ; Essential hypertension I10 ; Mixed hyperlipidemia E78.2 and Left anterior shoulder pain M25.512 [place] [id number] [place] [address] Mar, Type 2 diabetes mellitus without complic ation, without long-term current use of insulin E11.9 [place] [address] [address] Mar, Type 2 diabetes mellitus without complic ation, without long-term current use of insulin E11.9 [place] [address] [address] Mar, Type 2 diabetes mellitus without complic ation, without long-term current use of insulin E11.9 [place] [address] [address] Jan, Vertigo R42 [place] [address] [address] Jan, Acquired hypothyroidism E03.9 ; Essentia l hypertension I10 ; Coronary artery disease involving [place] coronary artery of [place] heart without angina pectoris I25.10 and Mixed hyperlipidemia E78.2 [place] [id number] [place] [address] Dec, Type 2 diabetes mellitus without complic ation, without long-term current use of insulin E11.9 [place] [address] [address] Nov, [place] [address] [address] Oct, Acquired hypothyroidism E03.9 ; Essentia l hypertension I10 and Mixed hyperlipidemia E78.2 [place] [address] [address] Oct, [facility] [id number] [place] [address] Oct, Left foot pain M79.672 [place] [address] [address] 05 Oct, 2018 Surgical followup visit Z09 ; Seasonal a llergies J30.2 and Coronary artery disease involving [place] coronary artery of [place] heart without angina pectoris I25.10 [facility] [id number] [place] [address] September, Abscess L02.91 [place] [address] [address] September, [place] [address] [address] September, [place] [address] [address] September, [place] [address] [address] September, Type 2 diabetes mellitus without complic ation, without long-term current use of insulin E11.9 and Mixed hyperlipidemia E78.2 [place] [address] [address] September, Vertigo R42 [place] [address] [address] September, Mixed hyperlipidemia E78.2 ; Type 2 diab etes mellitus without complication, without long-term current use of insulin E11.9 ; Acquired hypothyroidism E03.9 and Essential hypertension I10 [place] [address] [address] September, [place] [address] [address] September, [place] [address] [address] Aug, Grief F43.21 ; Coronary artery disease i nvolving tat[place] coronary artery of [place] heart without angina pectoris I25.10 and Lipoma of right upper extremity D17.21 [place] [address] [address] Jul, Mixed hyperlipidemia E78.2 and Acquired hypothyroidism E03.9 [place] [address] [address] 08 Jul, 2018 [facility] [address] [facility] [id number] [place] [address] Jul, Acute anterior epistaxis R04 .0 [place] [address] [address] 27 Jun, 2018 Low back pain M54.5 and Coronary artery disease involving [place] coronary artery of [place] heart without angina pectoris I25.10 [place] [address] [address] 14 Jun, 2018 Essential hypertension I10 [place] [address] [address] 04 Jun, 2018 Low back pain M54.5 [place] [address] [address] Jun, [place] [address] [address] May, Seasonal allergies J30.2 [place] [address] [address] May, Low back pain M54.5 [place] [address] [address] May, Mixed hyperlipidemia E78.2 ; Vertigo R42 ; Essential hypertension I10 ; Coronary artery disease involving [place] coronary artery of [place] heart without angina pectoris I25.10 and Mixed incontinence N39.46 [place] [address] [address] Apr, Contusion of face, initial encounter S00 .83XA ; Low back pain M54.5 and Strain of left shoulder, initial encounter S46.912A [place] [address] [address] Apr, [facility] [address] [address] Mar, [facility] [address] [address] Mar, [facility] [address] [address] Mar, Low back pain M54.5 ; Acquired hypothyro idism E03.9 ; Coronary artery disease involving [place] coronary artery of [place] heart without angina pectoris I25.10 ; Mixed hyperlipidemia E78.2 and Vertigo R42 [facility] [address] [address] Mar, [facility] [address] [address] Feb, Vertigo R42 [facility] [address] [address] Feb, [facility] [address] [address] Feb, Low back pain M54.5 [facility] [address] [address] Feb, Essential hypertension I10 ; Mixed hyper lipidemia E78.2 ; Coronary artery disease involving [place] coronary artery of [place] heart without angina pectoris I25.10 ; Screening for breast cancer Z12.31 and Mixed incontinence N39.46 [facility] [address] [address] Jan, [facility] [address] [address] Jan, Coronary artery disease involving [place] coronary artery of [place] heart without angina pectoris I25.10 [facility] [address] [address] Jan, Low back pain M54.5 and Coronary artery disease involving [place] coronary artery of [place] heart without angina pectoris I25.10 [place] [address] [address] Dec, Acquired hypothyroidism E03.9 and Vertig o R42 [place] [address] [address] Dec, Low back pain M54.5 and Dermatitis L30.[address] [address] Nov, Coronary artery disease involving [place] coronary artery of [place] heart without angina pectoris I25.10 [place] [address] [address] Nov, Acquired hypothyroidism E03.9 and Vertig o R42 [address] [address] Nov, Encounter for well woman exam Z01.419 ; Screening for osteoporosis Z13.820 and Screening for colon cancer Z12.[address] [address] Oct, Coronary artery disease involving [place] coronary artery of [place] heart without angina pectoris I25.[address] [address] September, [address] [address] September, [address] [address] Aug, Type 2 diabetes mellitus without complic ation, without long-term current use of insulin E11.9 ; Essential hypertension I10 ; Acquired hypothyroidism E03.9 and Low back pain M54.[address] [address] Aug, [address] [address] Aug, [address] [address] Jul, [place] [address] [address] Jul, Coronary artery disease involving [place] coronary artery of [place] heart without angina pectoris I25.10 [place] [address] [address] Jun, Low back pain M54.5 and Essential hypert ension I10 [place] [address] [address] Jun, Head cold J00 [place] [address] [address] May, [place] [address] [address] 14 Apr, 2017 Type 2 diabetes mellitus without complic ation, without long-term current use of insulin E11.9 [place] [address] [address] Apr, Type 2 diabetes mellitus without complic ation, without long-term current use of insulin E11.9 [place] [address] [address] Apr, Essential hypertension I10 [place] [address] [address] Mar, [place] [address] [address] Mar, [place] [address] [address] Mar, Osteoarthritis of spine with radiculopat hy, cervical region M47.22 [place] [address] [address] Mar, [place] [address] [address] Feb, [place] [address] [address] Feb, Screening breast examination Z12.31 ; Bi lateral carotid artery disease I77.9 ; Low back pain M54.5 ; Osteoarthritis of spine with radiculopathy, cervical region M47.22 ; Renal insufficiency N28.9 ; Vitamin D deficiency E55.9 ; Restless leg syndrome G25.81 ; Acquired hypothyroidism E03.9 ; Coronary artery disease involving [place] coronary artery of [place] heart without angina pectoris I25.10 ; Vertigo R42 ; Essential hypertension I10 ; Type 2 diabetes mellitus with diabetic chronic kidney disease E11.22 and Encounter for immunization Z23 [place] [address] [address] Jan, [place] [address] [address] Jan, Type 2 diabetes mellitus without complic ation, without long-term current use of insulin E11.9 ; Low back pain M54.5 ; Osteoarthritis of spine with radiculopathy, cervical region M47.22 ; Renal insufficiency N28.9 ; Vitamin D deficiency E55.9 ; Restless leg syndrome G25.81 ; Bilateral carotid artery disease I77.9 ; Acquired hypothyroidism E03.9 ; Coronary artery disease involving [place] coronary artery of [place] heart without angina pectoris I25.10 and Lipoma of back D17.1 [place] [address] [address] Jan, Type 2 diabetes mellitus without complic ation, without long-term current use of insulin E11.9 [place] [address] [address] Dec, Osteoarthritis of spine with radiculopat hy, cervical region M47.22 [place] [address] [address] Nov, [address] [address] Nov, Low back pain M54.5 and Osteoarthritis o f spine with radiculopathy, cervical region M47.22 [place] [address] [address] Nov, Osteoarthritis of spine with radiculopat hy, cervical region M47.22 ; Abnormal blood chemistry [...] hypothyroidism E03.9 ; Coronary artery disease involving [place] coronary artery of [place] heart without angina pectoris I25.10 ; Hypercalcemia E83.52 and Left foot pain M79.672 [place] [address] [address] Oct, [place] [address] [address] Oct, Osteoarthritis of spine with radiculopat hy, cervical region M47.22 [place] [address] [address] Oct, Abnormal blood chemistry R79.9 [place] [address] [address] September, Osteoarthritis of spine with radiculopat hy, cervical region M47.22 ; Essential hypertension I10 ; Renal insufficiency N28.9 ; Type 2 diabetes mellitus without complication, without long-term current use of insulin E11.9 ; Vitamin D deficiency E55.9 ; Paresthesia of both hands R20.2 ; Low back pain M54.5 ; Restless leg syndrome G25.81 and Dizziness R42 [place] [address] [address] September, [place] [address] [address] September, [place] [address] [address] September, [place] [address] [address] September, [place] [address] [address] Aug, [facility] [address] [address] Aug, [facility] [address] [address] Aug, [place] [address] [address] Aug, [place] [address] [address] Aug, Osteoarthritis of spine with radiculopat hy, cervical region M47.22 [place] [address] [address] Aug, Essential hypertension I10 ; Renal insuf ficiency N28.9 ; Type 2 diabetes mellitus without complication, without long-term current use of insulin E11.9 ; Vitamin D deficiency E55.9 ; Paresthesia of both hands R20.2 ; Low back pain M54.5 ; Restless leg syndrome G25.81 ; Osteoarthritis of spine with radiculopathy, cervical region M47.22 and Dizziness R42 [place] [address] [address] Jul, [place] [address] [address] Jul, [place] [address] [address] Jul, Essential hypertension I10 ; Paresthesia of both hands R20.2 ; Upper respiratory tract infection, unspecified type J06.9 and Low back pain M54.5 [place] [address] [address] 15 Jul, 2016 [place] [address] [address] Jul, [place] [address] [address] Jul, Renal insufficiency N28.9 ; Vitamin D de ficiency E55.9 ; Type 2 diabetes mellitus without complication, without long-term current use of insulin E11.9 ; Restless leg syndrome G25.81 ; Type 2 diabetes mellitus with diabetic chronic kidney disease E11.22 and Chronic kidney disease, stage 1 N18.1 [place] [address] [address] Jul, Renal insufficiency N28.9 [facility] [address] [address] Jun, [place] [address] [address] Jun, Renal insufficiency N28.9 ; Vitamin D de ficiency E55.9 ; Type 2 diabetes mellitus without complication, without long-term current use of insulin E11.9 ; Restless leg syndrome G25.81 ; Type 2 diabetes mellitus with diabetic chronic kidney disease E11.22 and Chronic kidney disease, stage 1 N18.1 [place] [address] [address] Jun, [place] [address] [address] May, [place] [address] [address] May, [place] [address] [address] May, [place] [address] [address] May, [facility] [address] [address] May, [facility] [address] [address] Apr, Acquired hypothyroidism E03.9 ; Essentia l hypertension I10 ; Type 2 diabetes mellitus without complication, without long-term current use of insulin E11.9 and Mixed hyperlipidemia E78.2 [place] [address] [address] Apr, Type 2 diabetes mellitus without complic ation, without long-term current use of insulin E11.9 ; Coronary artery disease involving [place] coronary artery of [place] heart without angina pectoris I25.10 ; Essential hypertension I10 and Acquired hypothyroidism E03.9 [facility] [id number] [place] [address] 21 Apr, 2016 Cellulitis of left lower extremity L03.1 16 [facility] [address] [address] 20 Apr, 2016 Essential hypertension I10 ; Mixed hyper lipidemia E78.2 ; Type 2 diabetes mellitus without complication, without long-term current use of insulin E11.9 ; Acquired hypothyroidism E03.9 ; Cellulitis of left lower extremity L03.116 and Coronary artery disease involving [place] coronary artery of [place] heart without angina pectoris I25.10 [facility] [address] [address] 14 Apr, 2016 [facility] [address] [facility] [id number] [address] Dec, Dermatitis L30.9 [facility] [address] [address] Aug, [facility] [address] [address] Aug, [facility] [id number] [place] [address] Jan, [facility] [address] [address] Jan, [facility] [id number] [place] [address] Jun, [facility] [address] [address] May, [facility] [address] [address] May, [facility] [address] [address] May, [facility] [id number] [place] [address] Apr, [facility] [id number] [place] [address] Feb, [facility] [id number] [place] [address] Feb, [facility] [id number] [place] [address] Nov, [facility] [address] [address] Nov, [facility] [address] [address] Nov, [facility] [id number] [place] [address] Nov, [facility] [id number] [place] [address] Nov, [facility] [id number] [place] [address] Nov, [facility] [id number] [place] [address] Nov, IMMUNIZATIONS No Known Immunizations SOCIAL HISTORY Never Assessed REASON FOR VISIT Repository Medication Ordered PLAN OF CARE VITAL SIGNS MEDICATIONS Medication Instructions Dosage Frequency Start Date End Date Duration S tatus Rosuvastatin Calcium 10 mg Orally Once a day 2 tablets 24h Active Levothyroxine Sodium 75 mcg Orally Once a day 1 tablet on an empty stomach in the morning 24h 90 Active Oxybutynin Chloride ER 5 mg Orally Once a day 1 tablet 24h 90 days Active Potassium Chloride Corie ER 10 [...] 2 stents placed-cardiac Surgical History cataract surgery Surgical History Limpoma removed from her back 2018 Hospitalization History black out spells Hospitalization History Surgery(s) only
--- OUTSIDE RECORDS SUMMARY | 2019-12-23 07:00 | XMS REPORT | Continuity of Care Document ---
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 UNSPEC TY 10/07/2015 Ot 593.9 RAMIREZ L URETERAL DIS NOS 10/07/2015 Ot 414.00 COR ON ATHEROSCLER NOS TYPE VESSEL, NATIV 10/07/[address] PAIN NOS 10/07/2015 Ot 414.01 COR ONARY ATHEROSCLEROSIS OF [place] CORON 10/07/2015 Ot 719.41 CHUCKY NT PAIN-SHLDER 10/07/2015 Ot 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 00 DIAB GUILLERMO WO COMPL, TYPE II OR UNSPEC TY 10/07/2015 BOBBI LEWIS MD Ot 272. 4 HYPERLIPIDEMIA NEC/NOS 10/07/2015 BOBBI LEWIS MD Ot 401. 9 HYPERTENSION NOS 10/07/2015 BOBBI LEWIS MD Ot 414. 00 CORON ATHEROSCLER NOS TYPE VESSEL, NATIV 10/07/2015 BOBBI LEWIS MD Ot 780. 4 DIZZINESS AND GIDDINESS 10/07/2015 BOBBI LEWIS MD Ot 786. 50 CHEST PAIN NOS 10/07/2015 BOBBI LEWIS MD Ot 250. 00 DIAB GUILLERMO WO COMPL, TYPE II OR UNSPEC TY 10/07/2015 BOBBI LEWIS MD Ot 272. 4 HYPERLIPIDEMIA NEC/NOS 10/07/2015 BOBBI LEWIS MD Ot 401. 9 HYPERTENSION NOS 10/07/2015 BOBBI LEWIS MD Ot 414. 00 CORON ATHEROSCLER NOS TYPE VESSEL, NATIV 10/07/2015 BOBBI LEWIS MD Ot 786. 50 CHEST PAIN NOS 10/07/2015 RENATO MACE MD [...] GONZALEZ DO Ot 414.01 CORONARY ATHEROSCLEROSIS OF [place] CORON 10/07/2015 BOBBI LEWIS MD Ot 244. 9 HYPOTHYROIDISM NOS 10/07/2015 BOBBI LEWIS MD Ot 250. 00 DIAB GUILLERMO WO COMPL, TYPE II OR UNSPEC TY 10/07/2015 BOBBI LEWIS MD Ot 401. 9 HYPERTENSION NOS 10/07/2015 BOBBI LEWIS MD Ot 414. 00 CORON ATHEROSCLER NOS TYPE VESSEL, NATIV 10/07/2015 BOBBI LEWIS MD Ot 427. 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 NEC 10/07/2015 BOBBI LEWIS MD Ot 433. 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 2 SYNCOPE AND COLLAPSE 10/07/2015 BOBBI LEWIS MD Ot V58. 63 LONG-TERM(CURRENT)USE OF ANTIPLATELET/AN 10/07/2015 BOBBI LEWIS MD, Ot V58. 69 OTH MED,LT,CURRENT USE 10/07/2015 DANIELLA GONZALEZ DO [...] 780.2 SYNCOPE AND COLLAPSE 10/07/2015 Ot R53.83 OTH ER FATIGUE 10/07/2015 DANIELLA GONZALEZ DO Ot E03.9 HYPOTHYROIDISM, UNSPECIFIED 10/07/2015 DANIELLA GONZALEZ DO Ot I10 ESSENTIAL (PRIMARY) HYPERTENSION 10/07/2015 DANIELLA GONZALEZ DO Ot R05 COUGH 10/07/2015 DANIELLA GONZALEZ DO Ot R06.02 SHORTNESS OF BREATH 10/07/2015 DANIELLA GONZALEZ DO Ot R53.83 OTHER FATIGUE 10/07/2015 BOBBI LEWIS MD Ot E78. 2 MIXED HYPERLIPIDEMIA 10/07/2015 BOBBI LEWIS MD Ot I10 ESSENTIAL (PRIMARY) HYPERTENSION 10/07/2015 BOBBI LEWIS MD Ot I25. 10 ATHSCL HEART DISEASE OF [place] CORONARY 10/07/2015 BOBBI LEWIS MD Ot R06. 02 SHORTNESS OF BREATH 10/07/2015 BOBBI LEWIS MD Ot R07. 89 OTHER CHEST PAIN 10/09/2015 LORI ROJO, TANJA Bradford Ot K52. 9 NONINFECTIVE GASTROENTERITIS AND COLITIS 10/21/2015 BOBBI LEWIS MD Ot E78. 2 MIXED HYPERLIPIDEMIA 10/21/2015 BOBBI LEWIS MD Ot I10 ESSENTIAL (PRIMARY) HYPERTENSION 10/21/2015 BOBBI LEWIS MD Ot I25. 10 ATHSCL HEART DISEASE OF [place] CORONARY 10/21/2015 BOBBI LEWIS MD Ot R06. 02 SHORTNESS OF BREATH 10/21/2015 BOBBI LEWIS MD Ot R07. 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 00 DIAB GUILLERMO WO COMPL, TYPE II OR UNSPEC TY 11/30/2015 BOBBI LEWIS MD Ot 272. 4 HYPERLIPIDEMIA NEC/NOS 11/30/2015 BOBBI LEWIS MD Ot 401. 9 HYPERTENSION NOS 11/30/2015 BOBBI LEWIS MD Ot 414. 00 CORON ATHEROSCLER NOS TYPE VESSEL, NATIV 11/30/2015 BOBBI LEWIS MD Ot 780. 4 DIZZINESS AND GIDDINESS 11/30/2015 BOBBI LEWIS MD Ot 786. 50 CHEST PAIN NOS 11/30/2015 BOBBI LEWIS MD Ot 250. 00 DIAB GUILLERMO WO COMPL, TYPE II OR UNSPEC TY 11/30/2015 BOBBI LEWIS MD Ot 272. 4 HYPERLIPIDEMIA NEC/NOS 11/30/2015 BOBBI LEWIS MD Ot 401. 9 HYPERTENSION NOS 11/30/2015 BOBBI LEWIS MD Ot 414. 00 CORON ATHEROSCLER NOS TYPE VESSEL, NATIV 11/30/2015 BOBBI LEWIS MD Ot 786. 50 CHEST PAIN NOS 11/30/2015 RENATO MACE MD Ot 433.10 CAROTID ARTERY OCCLUSION W O CEREBRAL IN 11/30/2015 RENATO MACE MD Ot V72.84 EXAM PRE-OPERATIVE NOS 11/30/2015 RENATO MACE MD Ot V74.8 SCREEN-BACTERIAL DIS NEC 11/30/2015 DANIELLA [...] Ot 427.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 NEC 11/30/2015 KATHRIN MCGUIER Ot 435.9 TRANS CEREB ISCHEMIA NOS 11/30/2015 KATHRIN MCGUIRE Ot 780.2 SYNCOPE AND COLLAPSE 11/30/2015 DANIELLA GONZALEZ DO Ot 250.00 DIAB GUILLERMO WO COMPL, TYPE II OR UNSPEC TY 11/30/2015 DANIELLA GONZALEZ DO Ot 414.01 CORONARY ATHEROSCLEROSIS OF [place] CORON 11/30/2015 BOBBI LEWIS MD Ot 244. 9 HYPOTHYROIDISM NOS 11/30/2015 BOBBI LEWIS MD Ot 250. 00 DIAB GUILLERMO WO COMPL, TYPE II OR UNSPEC TY 11/30/2015 BOBBI LEWIS MD Ot 401. 9 HYPERTENSION NOS 11/30/2015 BOBBI LEWIS MD Ot 414. 00 CORON ATHEROSCLER NOS TYPE VESSEL, NATIV 11/30/2015 BOBBI LEWIS MD Ot 427. 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 NEC 11/30/2015 BOBBI LEWIS MD Ot 433. 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 2 SYNCOPE AND COLLAPSE 11/30/2015 BOBBI LEWIS MD Ot V58. 63 LONG-TERM(CURRENT)USE OF ANTIPLATELET/AN 11/30/2015 BOBBI LEWIS MD Ot V58. 69 OTH MED,LT,CURRENT USE 11/30/2015 DANIELLA GONZALEZ DO [...] MCGUIRE Ot 427.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 NEC 11/30/2015 DANIELLA GONZALEZ DO Ot 244.9 HYPOTHYROIDISM NOS 11/30/2015 LISA MALDONADO, DANIELLA Bradford Ot 250.00 DIAB GUILLERMO WO COMPL, TYPE II OR UNSPEC TY 11/30/2015 GELLENDER DO, DANIELLA Bradford Ot 250.00 DIAB GUILLERMO WO COMPL, TYPE II OR UNSPEC TY 11/30/2015 PJLENDER , DANIELLA Bradford Ot 780.2 SYNCOPE AND COLLAPSE 11/30/2015 Ot R53.83 OTH ER FATIGUE 11/30/2015 LISA MALDONADO, DANIELLA Bradford Ot E03.9 HYPOTHYROIDISM, UNSPECIFIED 11/30/2015 GELLENDER DO, DANIELLA Bradford Ot I10 ESSENTIAL (PRIMARY) HYPERTENSION 11/30/2015 LISA MALDONADO, DANIELLA Bradford Ot R05 COUGH 11/30/2015 GELLENDER DO, DANIELLA Bradford Ot R06.02 SHORTNESS OF BREATH 11/30/2015 LISA MALDONADO, DANIELLA Bradford Ot R53.83 OTHER FATIGUE 11/30/2015 BOBBI LEWIS MD Ot E78. 2 MIXED HYPERLIPIDEMIA 11/30/2015 BOBBI LEWIS MD Ot I10 ESSENTIAL (PRIMARY) HYPERTENSION 11/30/2015 BOBBI LEWIS MD Ot I25. 10 ATHSCL HEART DISEASE OF [place] CORONARY 11/30/2015 JOSHUA ROJO, BOBBI Olivera Ot R06. 02 SHORTNESS OF BREATH 11/30/2015 BOBBI LEWIS MD Ot R07. 89 OTHER CHEST PAIN 12/01/2015 DANIELLA GONZALEZ DO Ot E03.9 HYPOTHYROIDISM, UNSPECIFIED 12/01/2015 GELLENDER DO, DANIELLA Bradford Ot E78.5 HYPERLIPIDEMIA, UNSPECIFIED 12/16/2015 GELLENDER DO, DANIELLA Suzette Ot E03.9 HYPOTHYROIDISM, UNSPECIFIED 12/16/2015 GELLENDER DO, DANIELLA Suzette Ot E78.5 HYPERLIPIDEMIA, UNSPECIFIED 12/27/2015 PJLENDER DO, DANIELLA Bradford Ot E03.9 HYPOTHYROIDISM, UNSPECIFIED 01/17/2016 KATHRIN MCGUIRE Ot E78.2 MIXED HYPERLIPIDEMIA 01/17/2016 KATHRIN MCGUIRE Ot I25.10 ATHSCL HEART DISEASE OF [place] CORONARY 01/20/2016 LISA MALDONADO DANIELLA Bradford Ot Z12.31 ENCNTR SCREEN MAMMOGRAM FOR MALIGNANT NE 01/20/2016 DANIELLA GONZALEZ DO Ot Z12.31 ENCNTR SCREEN MAMMOGRAM FOR MALIGNANT NE 01/25/2016 KATHRIN MCGUIRE Ot E78.2 MIXED HYPERLIPIDEMIA 01/25/2016 KATHRIN MCGUIRE Ot I10 ESSENTIAL (PRIMARY) HYPERTENSION 01/25/2016 YEN SHAH, KATHRIN Mensah Ot I25.10 ATHSCL HEART DISEASE OF [place] CORONARY 01/25/2016 KATHRIN MCGUIRE Ot R07.89 OTHER [...] 02/04/2016 ELMO DO, PEDRO K Ot Z79.82 SHELTER (CURRENT) USE OF ASPIRIN 02/04/2016 ELMO DO, PEDRO K Ot Z79.899 OTHER PRODUCTION CONTROL ANALYST (CURRENT) DRUG THERAPY 02/04/2016 ELMO DO PEDRO K Ot Z95.5 PRESENCE OF CORONARY ANGIOPLASTY IMPLANT 02/06/2016 ELMO DO, PEDRO K Ot E11.9 TYPE 2 DIABETES MELLITUS WITHOUT COMPLIC 02/06/2016 ELMO DO, PEDRO K Ot I10 ESSENTIAL (PRIMARY) HYPERTENSION 02/06/2016 ELMO DO, PEDRO K Ot L30.9 DERMATITIS, UNSPECIFIED 02/06/2016 ELMO DO, PEDRO K Ot R21 RASH AND OTHER NONSPECIFIC SKIN ERUPTION 02/06/2016 ELMO DO PEDRO K Ot Z79.82 SHELTER (CURRENT) USE OF ASPIRIN 02/06/2016 ELMO DO PEDRO K Ot Z79.899 OTHER PRODUCTION CONTROL ANALYST (CURRENT) DRUG THERAPY 02/06/2016 ELMO DO PEDRO K Ot Z95.5 PRESENCE OF CORONARY ANGIOPLASTY IMPLANT 02/09/2016 KATHRIN MCGUIRE Ot E78.2 MIXED HYPERLIPIDEMIA 02/09/2016 KATHRIN MCGUIRE Ot I10 ESSENTIAL (PRIMARY) HYPERTENSION 02/09/2016 KATHRIN MCGUIRE Ot I25.10 ATHSCL HEART DISEASE OF [place] CORONARY 02/09/2016 KATHRIN MCGUIRE Ot R07.89 OTHER CHEST PAIN 02/10/2016 Ot V76.12 OTH SCREEN MAMMO- MALIGN NEOPLASM OF [place] 02/10/2016 Ot 414.00 COR ON ATHEROSCLER NOS TYPE VESSEL, NATIV 02/10/[address] PAIN NOS 02/10/2016 Ot 414.01 COR ONARY ATHEROSCLEROSIS OF [place] CORON 02/10/2016 Ot 719.41 CHUCKY NT PAIN-SHLDER 02/10/2016 Ot 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 00 DIAB GUILLERMO WO COMPL, TYPE II OR UNSPEC TY 02/10/2016 BOBBI LEWIS MD Ot 272. 4 HYPERLIPIDEMIA NEC/NOS 02/10/2016 BOBBI LEWIS MD Ot 401. 9 HYPERTENSION NOS 02/10/2016 BOBBI LEWIS MD Ot 414. 00 CORON ATHEROSCLER NOS TYPE VESSEL, NATIV 02/10/2016 BOBBI LEWIS MD Ot 780. 4 DIZZINESS AND GIDDINESS 02/10/2016 BOBBI LEWIS MD Ot 786. 50 CHEST PAIN NOS 02/10/2016 BOBBI LEWIS MD Ot 250. 00 DIAB GUILLERMO WO COMPL, TYPE II OR UNSPEC TY 02/10/2016 BOBBI LEWIS MD Ot 272. 4 HYPERLIPIDEMIA NEC/NOS 02/10/2016 BOBBI LEWIS MD Ot 401. 9 HYPERTENSION NOS 02/10/2016 BOBBI LEWIS MD Ot 414. 00 CORON ATHEROSCLER NOS TYPE VESSEL, NATIV 02/10/2016 JOSHUA ROJO, BOBBI Olivera Ot 786. 50 CHEST PAIN NOS 02/10/2016 NAKITA ROJO, RENATO [...] GONZALEZ DO Ot 414.01 CORONARY ATHEROSCLEROSIS OF [place] CORON 02/10/2016 BOBBI LEWIS MD Ot 244. 9 HYPOTHYROIDISM NOS 02/10/2016 BOBBI LEWIS MD Ot 250. 00 DIAB GUILLERMO WO COMPL, TYPE II OR UNSPEC TY 02/10/2016 BOBBI LEWIS MD Ot 401. 9 HYPERTENSION NOS 02/10/2016 BOBBI LEWIS MD Ot 414. 00 CORON ATHEROSCLER NOS TYPE VESSEL, NATIV 02/10/2016 BOBBI LEWIS MD Ot 427. 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 NEC 02/10/2016 BOBBI LEWIS MD Ot 433. 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 2 SYNCOPE AND COLLAPSE 02/10/2016 BOBBI LEWIS MD Ot V58. 63 LONG-TERM(CURRENT)USE OF ANTIPLATELET/AN 02/10/2016 BOBBI LEWIS MD, Ot V58. 69 OTH MED,LT,CURRENT USE 02/10/2016 DANIELLA GONZALEZ DO [...] TYPE II OR UNSPEC TY 02/10/2016 KATHRIN MGCUIRE Ot 272.4 HYPERLIPIDEMIA NEC/NOS 02/10/2016 KATHRIN MCGUIRE [...] 780.2 SYNCOPE AND COLLAPSE 02/10/2016 Ot R53.83 OTH ER FATIGUE 02/10/2016 DANIELLA GONZALEZ DO Ot E03.9 HYPOTHYROIDISM, UNSPECIFIED 02/10/2016 DANIELLA GONZALEZ DO Ot I10 ESSENTIAL (PRIMARY) HYPERTENSION 02/10/2016 PJLENDER DO, DANIELLA Bradford Ot R05 COUGH 02/10/2016 GELLENDER DO, DANIELLA Bradford Ot R06.02 SHORTNESS OF BREATH 02/10/2016 PJLENDER DO, DANIELLA Suzette Ot R53.83 OTHER FATIGUE 02/10/2016 BOBBI LEWIS MD Ot E78. 2 MIXED HYPERLIPIDEMIA 02/10/2016 BOBBI LEWIS MD Ot I10 ESSENTIAL (PRIMARY) HYPERTENSION 02/10/2016 BOBBI LEWIS MD Ot I25. 10 ATHSCL HEART DISEASE OF [place] CORONARY 02/10/2016 BOBBI LEWIS MD Ot R06. 02 SHORTNESS OF BREATH 02/10/2016 BOBBI LEWIS MD Ot R07. 89 OTHER CHEST PAIN 02/10/2016 LISA DO, DANIELLA Bradford Ot E03.9 HYPOTHYROIDISM, UNSPECIFIED 02/10/2016 LISA DO, DANIELLA Bradford Ot E78.5 HYPERLIPIDEMIA, UNSPECIFIED 02/10/2016 LISA MALDONADO, DANIELLA Bradford Ot E03.9 HYPOTHYROIDISM, UNSPECIFIED 02/10/2016 KATHRIN MCGUIRE Ot E78.2 MIXED HYPERLIPIDEMIA 02/10/2016 KATHRIN MCGUIRE Ot I25.10 ATHSCL HEART DISEASE OF [place] CORONARY 02/10/2016 KATHRIN MCGUIRE Ot E78.2 MIXED HYPERLIPIDEMIA 02/10/2016 KATHRIN MCGUIRE Ot I10 ESSENTIAL (PRIMARY) HYPERTENSION 02/10/2016 KATHRIN MCGUIRE Ot I25.10 ATHSCL HEART DISEASE OF [place] CORONARY 02/10/2016 KATHRIN MCGUIRE Ot R07.89 OTHER CHEST PAIN 02/10/2016 KATHRIN MCGUIRE Ot E78.2 MIXED HYPERLIPIDEMIA 02/10/2016 KATHRIN MCGUIRE Ot I10 ESSENTIAL (PRIMARY) HYPERTENSION 02/10/2016 KATHRIN MCGUIRE Ot I25.10 ATHSCL HEART DISEASE OF [place] CORONARY 02/10/2016 KATHRIN MCGUIRE Ot R07.89 OTHER CHEST PAIN 02/10/2016 LISA MALDONADO, DANIELLA Bradford Ot Z12.31 ENCNTR SCREEN MAMMOGRAM FOR MALIGNANT NE 02/13/2016 KATHRIN MCGUIRE Ot E78.2 MIXED HYPERLIPIDEMIA 02/13/2016 KATHRIN MCGUIRE Ot I10 ESSENTIAL (PRIMARY) HYPERTENSION 02/13/2016 KATHRIN MCGUIRE Ot I25.10 ATHSCL HEART DISEASE OF [place] CORONARY 02/13/2016 KATHRIN MCGUIRE Ot R07.89 OTHER CHEST PAIN 02/22/2016 KATHRIN MCGUIRE Ot E78.2 MIXED HYPERLIPIDEMIA 02/22/2016 KATHRIN MCGUIRE Ot I10 ESSENTIAL (PRIMARY) HYPERTENSION 02/22/2016 KATHRIN MCGUIRE Ot I25.10 ATHSCL HEART DISEASE OF [place] CORONARY 02/22/2016 KATHRIN MCGUIRE Ot R07.89 OTHER CHEST PAIN 03/07/2016 BING LAM MD Ot E11.9 TYPE 2 DIABETES MELLITUS WITHOUT COMPLIC 03/07/2016 BING LAM MD Ot L30.9 DERMATITIS, UNSPECIFIED 03/07/2016 BING LAM MD Ot R19.7 DIARRHEA, UNSPECIFIED 03/07/2016 BING LAM MD Ot R42 DIZZINESS AND GIDDINESS 03/07/2016 BING LAM MD Ot Z79.82 PRODUCTION CONTROL ANALYST (CURRENT) USE OF ASPIRIN 03/07/2016 BING LAM MD Ot Z79.84 SHELTER (CURRENT) USE OF ORAL HYPOGLYC 03/07/2016 BING LAM MD T Ot Z79.899 OTHER SHELTER (CURRENT) DRUG THERAPY 04/05/2016 DOLORES CRUZ Ot B35.4 TINEA CORPORIS 04/05/2016 DOLORES CRUZ Ot E11.9 TYPE 2 DIABETES MELLITUS WITHOUT COMPLIC 04/05/2016 DOLORES CRUZ Ot I 10 ESSENTIAL (PRIMARY) HYPERTENSION 04/05/2016 DOLORES CRUZ Ot L30.9 DERMATITIS, UNSPECIFIED 04/05/2016 DOLORES CRUZ Ot R 21 RASH AND OTHER NONSPECIFIC SKIN ERUPTION 04/05/2016 DOLORES CRUZ Ot Z79.82 PRODUCTION CONTROL ANALYST (CURRENT) USE OF ASPIRIN 04/05/2016 DOLORES CRUZ Ot Z79.899 OTHER PRODUCTION CONTROL ANALYST (CURRENT) DRUG THERAPY 04/06/2016 DOLORES CRUZ Ot B35.4 TINEA CORPORIS 04/06/2016 DOLORES CRUZ Ot E11.9 TYPE 2 DIABETES MELLITUS WITHOUT COMPLIC 04/06/2016 DOLORES CRUZ Ot I 10 ESSENTIAL (PRIMARY) HYPERTENSION 04/06/2016 DOLORES CRUZ Ot L30.9 DERMATITIS, UNSPECIFIED 04/06/2016 DOLORES CRUZ Ot R 21 RASH AND OTHER NONSPECIFIC SKIN ERUPTION 04/06/2016 DOLORES CRUZ Ot Z79.82 SHELTER (CURRENT) USE OF ASPIRIN 04/06/2016 DOLORES CRUZ Ot Z79.899 OTHER PRODUCTION CONTROL ANALYST (CURRENT) DRUG THERAPY 05/02/2016 DOLORES CRZU Ot E11.9 TYPE 2 DIABETES MELLITUS WITHOUT COMPLIC 05/02/2016 DOLORES CRUZ Ot I 10 ESSENTIAL (PRIMARY) HYPERTENSION 05/02/2016 DOLORES CRUZ Ot L50.9 URTICARIA, UNSPECIFIED 05/02/2016 DOLORES CRUZ Ot R 21 RASH AND OTHER NONSPECIFIC SKIN ERUPTION 05/02/2016 DOLORES CRUZ Ot R 42 DIZZINESS AND GIDDINESS 05/02/2016 DOLORES CRUZ Ot T37.0X5A ADVERSE EFFECT OF SULFONAMIDES, INITIAL 05/02/2016 DOLORES CRUZ Ot Z79.82 SHELTER (CURRENT) USE OF ASPIRIN 05/02/2016 DOLORES CRUZ Ot Z79.84 SHELTER (CURRENT) USE OF ORAL HYPOGLYC 05/02/2016 DOLORES CRUZ Ot Z79.899 OTHER PRODUCTION CONTROL ANALYST (CURRENT) DRUG THERAPY 05/02/2016 DOLORES CRUZ Ot Z95.5 PRESENCE OF CORONARY ANGIOPLASTY IMPLANT 06/18/2016 KATHRIN MCGUIRE Ot E78.2 MIXED HYPERLIPIDEMIA 06/27/2016 BOBBI LEWIS MD Ot E03. 9 HYPOTHYROIDISM, UNSPECIFIED 06/27/2016 BOBBI LEWIS MD Ot E11. 9 TYPE 2 DIABETES MELLITUS WITHOUT COMPLIC 06/27/2016 BOBBI LEWIS MD Ot E66. 9 OBESITY, UNSPECIFIED 06/27/2016 BOBBI LEWIS MD Ot E78. 5 HYPERLIPIDEMIA, UNSPECIFIED 06/27/2016 BOBBI LEWIS MD, Ot I10 ESSENTIAL (PRIMARY) HYPERTENSION 06/27/2016 BOBBI LEWIS MD, Ot I25. 10 ATHSCL HEART DISEASE OF [place] CORONARY 06/27/2016 BOBBI LEWIS MD, Ot I49. 3 VENTRICULAR PREMATURE DEPOLARIZATION 06/27/2016 BOBBI LEWIS MD Ot R07. 89 OTHER CHEST PAIN 06/27/2016 BOBBI LEWIS MD, Ot Z68. 32 BODY MASS INDEX (BMI) 32.0-32.9, ADULT 06/27/2016 BOBBI LEWIS MD, Ot Z79.899 OTHER PRODUCTION CONTROL ANALYST (CURRENT) DRUG THERAPY 06/27/2016 BOBBI LEWIS MD, Ot Z86. 73 PRSNL HX OF TIA (TIA), AND CEREB INFRC W 06/27/2016 BOBBI LEWIS MD, Ot Z87.891 PERSONAL HISTORY OF NICOTINE DEPENDENCE 06/27/2016 BOBBI LEWIS MD Ot Z95. 5 PRESENCE OF CORONARY ANGIOPLASTY IMPLANT 07/03/2016 KATHRIN MCGUIRE Ot E78.2 MIXED HYPERLIPIDEMIA 07/21/2016 MEKHI VIEYRA MD, Ot M54.5 LOW BACK PAIN 07/21/2016 MEKHI VIEYRA MD Ot Z53.21 PROC/TRTMT NOT CRD OUT D/T PT LV BEF SEE 07/21/2016 ABEBA OBRIEN APRN Ot E11 .9 TYPE 2 DIABETES MELLITUS WITHOUT COMPLIC 07/21/2016 ABEBA OBRIEN APRN Ot F17.210 NICOTINE DEPENDENCE, CIGARETTES, UNCOMPL 07/21/2016 ABEBA OBRIEN APRN Ot G89.29 OTHER CHRONIC PAIN 07/21/2016 ABEBA OBRIEN APRN Ot I10 ESSENTIAL (PRIMARY) HYPERTENSION 07/21/2016 ABEBA OBRIEN APRN Ot I25.10 ATHSCL HEART DISEASE OF [place] CORONARY 07/21/2016 ABEBA OBRIEN APRN Ot 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 WITH RADICULOPATHY, CE 07/21/2016 ABEBA OBRIEN APRN Ot M54 .5 LOW BACK PAIN 07/21/2016 ABEBA OBRIEN APRN Ot Z95 .5 PRESENCE OF CORONARY ANGIOPLASTY IMPLANT 07/23/2016 ABEBA OBRIEN APRN Ot E11 .9 TYPE 2 DIABETES MELLITUS WITHOUT COMPLIC 07/23/2016 ABEBA OBRIEN APRN Ot F17.210 NICOTINE DEPENDENCE, CIGARETTES, UNCOMPL 07/23/2016 ABEBA OBRIEN APRN Ot G89.29 OTHER CHRONIC PAIN 07/23/2016 ABEBA OBRIEN APRN Ot I10 ESSENTIAL (PRIMARY) HYPERTENSION 07/23/2016 ABEBA OBRIEN APRN Ot I25.10 ATHSCL HEART DISEASE OF [place] CORONARY 07/23/2016 ABEBA OBRIEN APRN Ot 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 WITH RADICULOPATHY, CE 07/23/2016 ABEBA OBRIEN APRN Ot M54 .5 LOW BACK PAIN 07/23/2016 ABEBA OBRIEN APRN Ot Z95 .5 PRESENCE OF CORONARY ANGIOPLASTY IMPLANT 07/24/2016 MEKHI VIEYRA MD Ot M54.5 LOW BACK PAIN 07/24/2016 MEKHI VIEYRA MD Ot Z53.21 PROC/TRTMT NOT CRD OUT D/T PT LV BEF SEE 07/27/2016 MEKHI VIEYRA MD Ot M54.5 LOW BACK PAIN 07/27/2016 MEKHI VIEYRA MD Ot Z53.21 PROC/TRTMT NOT CRD OUT D/T PT LV BEF SEE 08/01/2016 ABEBA OBRIEN APRN Ot E11 .9 TYPE 2 DIABETES MELLITUS WITHOUT COMPLIC 08/01/2016 ABEBA OBRIEN APRN Ot F17.210 NICOTINE DEPENDENCE, CIGARETTES, UNCOMPL 08/01/2016 ABEBA OBRIEN APRN Ot G89.29 OTHER CHRONIC PAIN 08/01/2016 ABEBA OBRIEN APRN Ot I10 ESSENTIAL (PRIMARY) HYPERTENSION 08/01/2016 ABEBA OBRIEN APRN Ot I25.10 ATHSCL HEART DISEASE OF [place] CORONARY 08/01/2016 ABEBA OBRIEN APRN Ot 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 WITH RADICULOPATHY, CE 08/01/2016 ABEBA OBRIEN APRN Ot M54 .5 LOW BACK PAIN 08/01/2016 ABEBA OBRIEN APRN Ot Z95 .5 PRESENCE OF CORONARY ANGIOPLASTY IMPLANT 09/14/2016 SAKSHI TIDWELL Ot 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 WITH RADICULOPATHY, CE 10/14/2016 TANJA SANDOVAL MD A Ot E03. 9 HYPOTHYROIDISM, UNSPECIFIED 10/14/2016 TANJA SANDOVAL MD A Ot E11. 9 TYPE 2 DIABETES MELLITUS WITHOUT COMPLIC 10/14/2016 TANJA SANDOVAL MD A Ot E78. 00 PURE HYPERCHOLESTEROLEMIA, UNSPECIFIED 10/14/2016 TANJA SANDOVAL MD A Ot E83. 42 HYPOMAGNESEMIA 10/14/2016 TANJA SANDOVAL MD A Ot E83. 52 HYPERCALCEMIA 10/14/2016 TANJA SANDOVAL MD A Ot E87. 6 HYPOKALEMIA 10/14/2016 TANJA SANDOVAL MD A Ot I10 ESSENTIAL (PRIMARY) HYPERTENSION 10/14/2016 TANJA SANDOVAL MD A Ot I25. 10 ATHSCL HEART DISEASE OF [place] CORONARY 10/14/2016 TANJA SANDOVAL MD A Ot R20. 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 73 PRSNL HX OF TIA (TIA), AND CEREB INFRC W 10/14/2016 TANJA SANDOVAL MD A Ot Z87.891 PERSONAL HISTORY OF NICOTINE DEPENDENCE 10/14/2016 TANJA SANDOVAL MD A Ot Z95. 5 PRESENCE OF CORONARY ANGIOPLASTY IMPLANT 10/17/2016 TANJA SANDOVAL MD A Ot E03. 9 HYPOTHYROIDISM, UNSPECIFIED 10/17/2016 TANJA SANDOVAL MD A Ot E11. 9 TYPE 2 DIABETES MELLITUS WITHOUT COMPLIC 10/17/2016 TANJA SANDOVAL MD Ot E78. 00 PURE HYPERCHOLESTEROLEMIA, UNSPECIFIED 10/17/2016 TANJA ASNDOVAL MD A Ot E83. 42 HYPOMAGNESEMIA 10/17/2016 TANJA SANDOVAL MD A Ot E83. 52 HYPERCALCEMIA 10/17/2016 TANJA SANDOVAL MD A Ot E87. 6 HYPOKALEMIA 10/17/2016 ATNJA SANDOVAL MD A Ot I10 ESSENTIAL (PRIMARY) HYPERTENSION 10/17/2016 TANJA SANDOVAL MD A Ot I25. 10 ATHSCL HEART DISEASE OF [place] CORONARY 10/17/2016 TANJA SANDOVAL MD A Ot R20. 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 73 PRSNL HX OF TIA (TIA), AND CEREB INFRC W 10/17/2016 TANJA SANDOVAL MD Ot Z87.891 PERSONAL HISTORY OF NICOTINE DEPENDENCE 10/17/2016 TANJA SANDOVAL MD Ot Z95. 5 PRESENCE OF CORONARY ANGIOPLASTY IMPLANT 10/31/2016 MADL, SAKSHI Hernandez COMMUNITY PRODUCT SPECIALIST Ot I65.22 OCCLUSION AND STENOSIS OF LEFT CAROTID A 11/19/2016 MADL, SAKSHI L COMMUNITY PRODUCT SPECIALIST Ot I65.22 OCCLUSION AND STENOSIS OF LEFT CAROTID A 03/12/2017 MADL, SAKSHI L COMMUNITY PRODUCT SPECIALIST Ot Z12.31 ENCNTR SCREEN MAMMOGRAM FOR MALIGNANT NE 03/27/2017 MADL, SAKSHI L COMMUNITY PRODUCT SPECIALIST Ot Z12.31 ENCNTR SCREEN MAMMOGRAM FOR MALIGNANT NE 04/10/2017 Ot V76.12 OTH SCREEN MAMMO- MALIGN NEOPLASM OF [place] 04/10/2017 Ot 272.4 HYPE RLIPIDEMIA NEC/NOS 04/10/2017 Ot 401.9 HYPE RTENSION NOS 04/10/2017 Ot 414.00 COR ON ATHEROSCLER NOS TYPE VESSEL, NATIV 04/10/2017 Ot V58.69 OTH MED,LT,CURRENT USE 04/10/2017 Ot V72.84 EXA M PRE- OPERATIVE NOS 04/10/2017 Ot 427.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 04/10/2017 PJJACKIE MALDONADO DANIELLA Suzette Ot V76.12 OTH SCREEN MAMMO-MALIGN NEOPLASM OF [place] 04/10/2017 BOBBI LEWIS MD Ot 250. 00 DIAB GUILLERMO WO COMPL, TYPE II OR UNSPEC TY 04/10/2017 BOBBI LEWIS MD Ot 272. 4 HYPERLIPIDEMIA NEC/NOS 04/10/2017 BOBBI LEWIS MD Ot 401. 9 HYPERTENSION NOS 04/10/2017 BOBBI LEWIS MD Ot 414. 00 CORON ATHEROSCLER NOS TYPE VESSEL, NATIV 04/10/2017 BOBBI LEWIS MD Ot 780. 4 DIZZINESS AND GIDDINESS 04/10/2017 BOBBI LEWIS MD Ot 786. 50 CHEST PAIN NOS 04/10/2017 BOBBI LEWIS MD Ot 250. 00 DIAB GUILLERMO WO COMPL, TYPE II OR UNSPEC TY 04/10/2017 BOBBI LEWIS MD Ot 272. 4 HYPERLIPIDEMIA NEC/NOS 04/10/2017 BOBBI LEWIS MD Ot 401. 9 HYPERTENSION NOS 04/10/2017 BOBBI LEWIS MD Ot 414. 00 CORON ATHEROSCLER NOS TYPE VESSEL, NATIV 04/10/2017 BOBBI LEWIS MD Ot 786. 50 CHEST PAIN NOS 04/10/2017 NAKITA ROJO, RENATO [...] GONZALEZ DO Ot 414.01 CORONARY ATHEROSCLEROSIS OF [place] CORON 04/10/2017 BOBBI LEWIS MD Ot 244. 9 HYPOTHYROIDISM NOS 04/10/2017 BOBBI LEWIS MD Ot 250. 00 DIAB GUILLERMO WO COMPL, TYPE II OR UNSPEC TY 04/10/2017 BOBBI LEWIS MD Ot 401. 9 HYPERTENSION NOS 04/10/2017 BOBBI LEWIS MD Ot 414. 00 CORON ATHEROSCLER NOS TYPE VESSEL, NATIV 04/10/2017 BOBBI LEWIS MD Ot 427. 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 NEC 04/10/2017 BOBBI LEWIS MD Ot 433. 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 2 SYNCOPE AND COLLAPSE 04/10/2017 BOBBI LEWIS MD Ot V58. 63 LONG-TERM(CURRENT)USE OF ANTIPLATELET/AN 04/10/2017 BOBBI LEWIS MD Ot V58. 69 OT MED,LT,CURRENT USE 04/10/2017 DANIELLA GONZALEZ DO Ot [...] 780.2 SYNCOPE AND COLLAPSE 04/10/2017 Ot R53.83 OTH ER FATIGUE 04/10/2017 DANIELLA GONZALEZ DO Ot E03.9 HYPOTHYROIDISM, UNSPECIFIED 04/10/2017 LISA MALDONADO, DANIELLA Bradford Ot I10 ESSENTIAL (PRIMARY) HYPERTENSION 04/10/2017 LISA MALDONADO, DANIELLA Bradford Ot R05 COUGH 04/10/2017 LISA MALDONADO, DANIELLA Bradford Ot R06.02 SHORTNESS OF BREATH 04/10/2017 LISA MALDONADO, DANIELLA Suzette Ot R53.83 OTHER FATIGUE 04/10/2017 BOBBI LEWIS MD Ot E78. 2 MIXED HYPERLIPIDEMIA 04/10/2017 BOBBI LEWIS MD Ot I10 ESSENTIAL (PRIMARY) HYPERTENSION 04/10/2017 BOBBI LEWIS MD Ot I25. 10 ATHSCL HEART DISEASE OF [place] CORONARY 04/10/2017 BOBBI LEWIS MD Ot R06. 02 SHORTNESS OF BREATH 04/10/2017 BOBBI LEWIS MD Ot R07. 89 OTHER CHEST PAIN 04/10/2017 DANIELLA GONZALEZ DO Suzette Ot E03.9 HYPOTHYROIDISM, UNSPECIFIED 04/10/2017 LISA MALDONADODANIELLA Ot E78.5 HYPERLIPIDEMIA, UNSPECIFIED 04/10/2017 LISA MALDONADO DANIELLA Suzette Ot E03.9 HYPOTHYROIDISM, UNSPECIFIED 04/10/2017 KATHRIN MCGUIRE Ot E78.2 MIXED HYPERLIPIDEMIA 04/10/2017 KATHRIN MCGUIRE Ot I25.10 ATHSCL HEART DISEASE OF [place] CORONARY 04/10/2017 KATHRIN MCGUIRE Ot E78.2 MIXED HYPERLIPIDEMIA 04/10/2017 KATHRIN MCGUIRE Ot I10 ESSENTIAL (PRIMARY) HYPERTENSION 04/10/2017 KATHRIN MCGUIRE Ot I25.10 ATHSCL HEART DISEASE OF [place] CORONARY 04/10/2017 KATHRIN MCGUIRE Ot R07.89 OTHER CHEST PAIN 04/10/2017 KATHRIN MCGUIRE Ot E78.2 MIXED HYPERLIPIDEMIA 04/10/2017 KATHRIN MCGUIRE Ot I10 ESSENTIAL (PRIMARY) HYPERTENSION 04/10/2017 KATHRIN MCGUIRE Ot I25.10 ATHSCL HEART DISEASE OF [place] CORONARY 04/10/2017 KATHRIN MCGUIRE Ot R07.89 OTHER CHEST PAIN 04/10/2017 GELLENDER DO, DANIELLA A Ot Z12.31 ENCNTR SCREEN MAMMOGRAM FOR MALIGNANT NE 04/10/2017 KATHRIN MCGUIRE Ot E78.2 MIXED HYPERLIPIDEMIA 04/10/2017 MADLSAKSHI COMMUNITY PRODUCT SPECIALIST Ot 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 WITH RADICULOPATHY, CE 04/10/2017 MADL, SAKSHI Hernandez COMMUNITY PRODUCT SPECIALIST Ot I65.22 OCCLUSION AND STENOSIS OF LEFT CAROTID A 04/10/2017 MADSAKSHI Hernandez COMMUNITY PRODUCT SPECIALIST Ot Z12.31 ENCNTR SCREEN MAMMOGRAM FOR MALIGNANT NE 05/03/2017 MADLSAKSIH COMMUNITY PRODUCT SPECIALIST Ot I77 .9 DISORDER OF ARTERIES AND ARTERIOLES, UNS 05/03/2017 MADSAKSHI Hernandez COMMUNITY PRODUCT SPECIALIST Ot Z98.890 OTHER SPECIFIED POSTPROCEDURAL STATES 07/26/2017 BING LAM MD, Ot E03.9 HYPOTHYROIDISM, UNSPECIFIED 07/26/2017 BING LAM MD Ot E11.9 TYPE 2 DIABETES MELLITUS WITHOUT COMPLIC 07/26/2017 BING LAM MD Ot E78.00 PURE HYPERCHOLESTEROLEMIA, UNSPECIFIED 07/26/2017 BING LAM MD Ot I10 ESSENTIAL (PRIMARY) HYPERTENSION 07/26/2017 BING LAM MD, Ot I25.10 ATHSCL HEART DISEASE OF [place] CORONARY 07/26/2017 BING LAM MD, Ot L30.9 DERMATITIS, UNSPECIFIED 07/26/2017 BING LAM MD Ot R20.2 PARESTHESIA OF SKIN 07/26/2017 BING LAM MD Ot R21 RASH AND OTHER NONSPECIFIC SKIN ERUPTION 07/26/2017 BING LAM MD, Ot Z79.52 PRODUCTION CONTROL ANALYST (CURRENT) USE OF SYSTEMIC STER 07/26/2017 BING LAM MD, Ot Z79.82 PRODUCTION CONTROL ANALYST (CURRENT) USE OF ASPIRIN 07/26/2017 BING LAM MD, Ot Z86.73 PRSNL HX OF TIA (TIA), AND CEREB INFRC W 07/26/2017 BING LAM MD, Ot Z86.79 PERSONAL HISTORY OF OTHER DISEASES OF TH 07/26/2017 BING LAM MD, Ot Z87.19 PERSONAL HISTORY OF OTHER DISEASES OF 07/26/2017 BING LAM MD, Ot Z87.891 PERSONAL HISTORY OF NICOTINE [...] MD Ot I25.10 ATHSCL HEART DISEASE OF [place] CORONARY 07/29/2017 BING LAM MD, Ot L30.9 DERMATITIS, UNSPECIFIED 07/29/2017 BING LAM MD, Ot R20.2 PARESTHESIA OF SKIN 07/29/2017 BING LAM MD Ot R21 RASH AND OTHER NONSPECIFIC SKIN ERUPTION 07/29/2017 BING LAM MD, Ot Z79.52 PRODUCTION CONTROL ANALYST (CURRENT) USE OF SYSTEMIC STER 07/29/2017 BING LAM MD Ot Z79.82 SHELTER (CURRENT) USE OF ASPIRIN 07/29/2017 BING LAM MD, Ot Z86.73 PRSNL HX OF TIA (TIA), AND CEREB INFRC W 07/29/2017 BING LAM MD, Ot Z86.79 PERSONAL HISTORY OF OTHER DISEASES OF 07/29/2017 BING LAM MD, Ot Z87.19 PERSONAL HISTORY OF OTHER DISEASES OF 07/29/2017 BING LAM MD, Ot Z87.891 PERSONAL HISTORY OF NICOTINE DEPENDENCE 07/29/2017 BING LAM MD Ot Z90.89 ACQUIRED ABSENCE OF OTHER ORGANS 07/29/2017 BING LAM MD Ot Z95.5 PRESENCE OF CORONARY ANGIOPLASTY IMPLANT 11/26/2017 Ot 427.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 11/26/2017 DANIELLA GONZALEZ DO Ot V76.12 OTH SCREEN MAMMO-MALIGN NEOPLASM OF [place] 11/26/2017 BOBBI LEWIS MD Ot 250. 00 DIAB GUILLERMO WO COMPL, TYPE II OR UNSPEC TY 11/26/2017 BOBBI LEWIS MD Ot 272. 4 HYPERLIPIDEMIA NEC/NOS 11/26/2017 BOBBI LEWIS MD Ot 401. 9 HYPERTENSION NOS 11/26/2017 BOBBI LEWIS MD Ot 414. 00 CORON ATHEROSCLER NOS TYPE VESSEL, NATIV 11/26/2017 BOBBI LEWIS MD Ot 780. 4 DIZZINESS AND GIDDINESS 11/26/2017 BOBBI LEWIS MD Ot 786. 50 CHEST PAIN NOS 11/26/2017 BOBBI LEWIS MD Ot 250. 00 DIAB GUILLERMO WO COMPL, TYPE II OR UNSPEC TY 11/26/2017 BOBBI LEWIS MD Ot 272. 4 HYPERLIPIDEMIA NEC/NOS 11/26/2017 BOBBI LEWIS MD Ot 401. 9 HYPERTENSION NOS 11/26/2017 BOBBI LEWIS MD Ot 414. 00 CORON ATHEROSCLER NOS TYPE VESSEL, NATIV 11/26/2017 BOBBI LEWIS MD Ot 786. 50 CHEST PAIN NOS 11/26/2017 NAKITA ROJO, RENATO Conley Ot 433.10 CAROTID ARTERY OCCLUSION W O CEREBRAL IN 11/26/2017 RENATO MACE MD Ot V72.84 EXAM PRE-OPERATIVE NOS 11/26/2017 NAKITA ROJO, RENATO Conley Ot V74.8 SCREEN-BACTERIAL DIS NEC 11/26/2017 DANIELLA GONZALEZ DO Ot V76.12 OTH SCREEN MAMMO-MALIGN NEOPLASM OF [place] 11/26/2017 AKTHRIN MCGUIRE Ot 272.4 HYPERLIPIDEMIA NEC/NOS 11/26/2017 KATHRIN [...] GONZALEZ DO Ot 414.01 CORONARY ATHEROSCLEROSIS OF [place] CORON 11/26/2017 BOBBI LEWIS MD Ot 244. 9 HYPOTHYROIDISM NOS 11/26/2017 BOBBI LEWIS MD Ot 250. 00 DIAB GUILLERMO WO COMPL, TYPE II OR UNSPEC TY 11/26/2017 BOBBI LEWIS MD Ot 401. 9 HYPERTENSION NOS 11/26/2017 BOBBI LEWIS MD Ot 414. 00 CORON ATHEROSCLER NOS TYPE VESSEL, NATIV 11/26/2017 BOBBI LEWIS MD Ot 427. 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 NEC 11/26/2017 BOBBI LEWIS MD Ot 433. 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 2 SYNCOPE AND COLLAPSE 11/26/2017 BOBBI LEWIS MD Ot V58. 63 LONG-TERM(CURRENT)USE OF ANTIPLATELET/AN 11/26/2017 BOBBI LEWIS MD Ot V58. 69 OTH MED,LT,CURRENT USE 11/26/2017 DANIELLA GONZALEZ DO [...] CARDIAC DYSRHYTHMIAS NEC 11/26/2017 GELLENDER DO, DANIELLA Bradford Ot 244.9 HYPOTHYROIDISM NOS 11/26/2017 GELLENDER DO, DANIELLA Bradford Ot 250.00 DIAB GUILLERMO WO COMPL, TYPE II OR UNSPEC TY 11/26/2017 GELLENDER DO, DANIELLA Bradford Ot 250.00 DIAB GUILLERMO WO COMPL, TYPE II OR UNSPEC TY 11/26/2017 GELLENDER DO, DANIELLA Bradford Ot 780.2 SYNCOPE AND COLLAPSE 11/26/2017 Ot R53.83 OTH ER FATIGUE 11/26/2017 PJLENDER DO, DANIELLA Bradford Ot E03.9 HYPOTHYROIDISM, UNSPECIFIED 11/26/2017 GELLENDER DO, DANIELLA Bradford Ot I10 ESSENTIAL (PRIMARY) HYPERTENSION 11/26/2017 GELLENDER DO, DANIELLA Bradford Ot R05 COUGH 11/26/2017 GELLENDER DODANIELLA Ot R06.02 SHORTNESS OF BREATH 11/26/2017 GELLENDER DO, DANIELLA Suzette Ot R53.83 OTHER FATIGUE 11/26/2017 BOBBI LEWIS MD Ot E78. 2 MIXED HYPERLIPIDEMIA 11/26/2017 BOBBI LEWIS MD Ot I10 ESSENTIAL (PRIMARY) HYPERTENSION 11/26/2017 BOBBI LEWIS MD Ot I25. 10 ATHSCL HEART DISEASE OF [place] CORONARY 11/26/2017 BOBBI LEWIS MD Ot R06. 02 SHORTNESS OF BREATH 11/26/2017 BOBBI LEWIS MD Ot R07. 89 OTHER CHEST PAIN 11/26/2017 GELLENDER DODANIELLA Ot E03.9 HYPOTHYROIDISM, UNSPECIFIED 11/26/2017 GELLENDER DO, DANIELLA Bradford Ot E78.5 HYPERLIPIDEMIA, UNSPECIFIED 11/26/2017 GELLENDER DODANIELLA Ot E03.9 HYPOTHYROIDISM, UNSPECIFIED 11/26/2017 KATHRIN MCGUIRE Ot E78.2 MIXED HYPERLIPIDEMIA 11/26/2017 YEN SHAH KATHRIN Mensah Ot I25.10 ATHSCL HEART DISEASE OF [place] CORONARY 11/26/2017 SAAVEDRALISE SHAH KATHRIN Mensah Ot E78.2 MIXED HYPERLIPIDEMIA 11/26/2017 SAAVEDRALISE SHAH KATHRIN Mensah Ot I10 ESSENTIAL (PRIMARY) HYPERTENSION 11/26/2017 SAAVEDRALISE SHAH KATHRIN Mensah Ot I25.10 ATHSCL HEART DISEASE OF [place] CORONARY 11/26/2017 SAAVEDRALISE SHAH KATHRIN Mensah Ot R07.89 OTHER CHEST PAIN 11/26/2017 SAAVEDRALISE SHAH, KATHRIN Mensah Ot E78.2 MIXED HYPERLIPIDEMIA 11/26/2017 SAAVEDRALISE SHAH KATHRIN Mensah Ot I10 ESSENTIAL (PRIMARY) HYPERTENSION 11/26/2017 SAAVEDRALISE SHAH KATHRIN Mensah Ot I25.10 ATHSCL HEART DISEASE OF [place] CORONARY 11/26/2017 SAAVEDRALISE SHAH KATHRIN Mensah Ot R07.89 OTHER CHEST PAIN 11/26/2017 DANIELLA GONZALEZ DO Ot Z12.31 ENCNTR SCREEN MAMMOGRAM FOR MALIGNANT NE 11/26/2017 YEN SHAH KATHRIN Mensah Ot E78.2 MIXED HYPERLIPIDEMIA 11/26/2017 MADL, SAKSHI L COMMUNITY PRODUCT SPECIALIST Ot 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 WITH RADICULOPATHY, CE 11/26/2017 MADL, SAKSHI L COMMUNITY PRODUCT SPECIALIST Ot I65.22 OCCLUSION AND STENOSIS OF LEFT CAROTID A 11/26/2017 MADL, SAKSHI L COMMUNITY PRODUCT SPECIALIST Ot Z12.31 ENCNTR SCREEN MAMMOGRAM FOR MALIGNANT NE 11/26/2017 MADL, SAKSHI L COMMUNITY PRODUCT SPECIALIST Ot I77 .9 DISORDER OF ARTERIES AND ARTERIOLES, UNS 11/26/2017 MADL, SAKSHI L COMMUNITY PRODUCT SPECIALIST Ot Z98.890 OTHER SPECIFIED POSTPROCEDURAL STATES 11/26/2017 JOSHUA ROJO, BOBBI Olivera Ot E78. 2 MIXED HYPERLIPIDEMIA 11/26/2017 BOBBI LEWIS MD Ot I10 ESSENTIAL (PRIMARY) HYPERTENSION 11/26/2017 BOBBI LEWIS MD Ot I25. 10 ATHSCL HEART DISEASE OF [place] CORONARY 11/26/2017 BOBBI LEWIS MD Ot R07. 89 OTHER CHEST PAIN 11/26/2017 JOSHUA MD, BASHAR J Ot R60. 0 LOCALIZED EDEMA 11/28/2017 Ot 427.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 11/28/2017 DANIELLA GONZALEZ DO Ot V76.12 OTH SCREEN MAMMO-MALIGN NEOPLASM OF [place] 11/28/2017 BOBBI LEWIS MD Ot 250. 00 DIAB GUILLERMO WO COMPL, TYPE II OR UNSPEC TY 11/28/2017 BOBBI LEWIS MD Ot 272. 4 HYPERLIPIDEMIA NEC/NOS 11/28/2017 BOBBI LEWIS MD Ot 401. 9 HYPERTENSION NOS 11/28/2017 BOBBI LEWIS MD Ot 414. 00 CORON ATHEROSCLER NOS TYPE VESSEL, NATIV 11/28/2017 BOBBI LEWIS MD Ot 780. 4 DIZZINESS AND GIDDINESS 11/28/2017 BOBBI LEWIS MD Ot 786. 50 CHEST PAIN NOS 11/28/2017 BOBBI LEWIS MD Ot 250. 00 DIAB GUILLERMO WO COMPL, TYPE II OR UNSPEC TY 11/28/2017 BOBBI LEWIS MD Ot 272. 4 HYPERLIPIDEMIA NEC/NOS 11/28/2017 BOBBI LEWIS MD Ot 401. 9 HYPERTENSION NOS 11/28/2017 BOBBI LEWIS MD Ot 414. 00 CORON ATHEROSCLER NOS TYPE VESSEL, NATIV 11/28/2017 BOBBI LEWIS MD Ot 786. 50 CHEST PAIN NOS 11/28/2017 NAKITA ROJO, RENATO Conley Ot 433.10 CAROTID ARTERY OCCLUSION W O CEREBRAL IN 11/28/2017 RENATO MACE MD Ot V72.84 EXAM PRE-OPERATIVE NOS 11/28/2017 NAKITA [...] GONZALEZ DO Ot 414.01 CORONARY ATHEROSCLEROSIS OF [place] CORON 11/28/2017 BOBBI LEWIS MD Ot 244. 9 HYPOTHYROIDISM NOS 11/28/2017 BOBBI LEWIS MD Ot 250. 00 DIAB GUILLERMO WO COMPL, TYPE II OR UNSPEC TY 11/28/2017 BOBBI LEWIS MD Ot 401. 9 HYPERTENSION NOS 11/28/2017 BOBBI LEWIS MD Ot 414. 00 CORON ATHEROSCLER NOS TYPE VESSEL, NATIV 11/28/2017 BOBBI LEWIS MD Ot 427. 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 NEC 11/28/2017 BOBBI LEWIS MD Ot 433. 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 2 SYNCOPE AND COLLAPSE 11/28/2017 BOBBI LEWIS MD Ot V58. 63 LONG-TERM(CURRENT)USE OF ANTIPLATELET/AN 11/28/2017 BOBBI LEWIS MD Ot V58. 69 OTH MED,LT,CURRENT USE 11/28/2017 DANIELLA GONZALEZ DO [...] 780.2 SYNCOPE AND COLLAPSE 11/28/2017 Ot R53.83 OTH ER FATIGUE 11/28/2017 GELLENDER DO, DANIELLA Bradford Ot E03.9 HYPOTHYROIDISM, UNSPECIFIED 11/28/2017 GELLENDER DO, DANIELLA Bradford Ot I10 ESSENTIAL (PRIMARY) HYPERTENSION 11/28/2017 GELLENDER DO, DANIELLA Bradford Ot R05 COUGH 11/28/2017 GELLENDER DO, DANIELLA Bradford Ot R06.02 SHORTNESS OF BREATH 11/28/2017 GELLENDER DO, DANIELLA Bradford Ot R53.83 OTHER FATIGUE 11/28/2017 BOBBI LEWIS MD Ot E78. 2 MIXED HYPERLIPIDEMIA 11/28/2017 BOBBI LEWIS MD Ot I10 ESSENTIAL (PRIMARY) HYPERTENSION 11/28/2017 BOBBI LEWIS MD Ot I25. 10 ATHSCL HEART DISEASE OF [place] CORONARY 11/28/2017 BOBBI LEWIS MD Ot R06. 02 SHORTNESS OF BREATH 11/28/2017 BOBBI LEWIS MD Ot R07. 89 OTHER CHEST PAIN 11/28/2017 GELLENDER DODANIELLA Ot E03.9 HYPOTHYROIDISM, UNSPECIFIED 11/28/2017 GELLENDER DO, DANIELLA Bradford Ot E78.5 HYPERLIPIDEMIA, UNSPECIFIED 11/28/2017 GELLENDER DO, DANIELLA Bradford Ot E03.9 HYPOTHYROIDISM, UNSPECIFIED 11/28/2017 KATHRIN MCGUIRE Ot E78.2 MIXED HYPERLIPIDEMIA 11/28/2017 YEN SHAH KATHRIN Mensah Ot I25.10 ATHSCL HEART DISEASE OF [place] CORONARY 11/28/2017 YEN SHAH KATHRIN Mensah Ot E78.2 MIXED HYPERLIPIDEMIA 11/28/2017 YEN SHAH KATHRIN Mensah Ot I10 ESSENTIAL (PRIMARY) HYPERTENSION 11/28/2017 SAAVEDRALISE SHAH KATHRIN Mensah Ot I25.10 ATHSCL HEART DISEASE OF [place] CORONARY 11/28/2017 SAAVEDRALISE SHAH KATHRIN Mensah Ot R07.89 OTHER CHEST PAIN 11/28/2017 SAAVEDRALISE SHAH KATHRIN Mensah Ot E78.2 MIXED HYPERLIPIDEMIA 11/28/2017 SAAVEDRALISE SHAH KATHRIN Mensah Ot I10 ESSENTIAL (PRIMARY) HYPERTENSION 11/28/2017 SAAVEDRALISE SHAH KATHRIN Mensah Ot I25.10 ATHSCL HEART DISEASE OF [place] CORONARY 11/28/2017 SAAVEDRALISE SHAH KATHRIN Mensah Ot R07.89 OTHER CHEST PAIN 11/28/2017 DANIELLA GONZALEZ DO A Ot Z12.31 ENCNTR SCREEN MAMMOGRAM FOR MALIGNANT NE 11/28/2017 YEN SHAH KATHRIN Mensah Ot E78.2 MIXED HYPERLIPIDEMIA 11/28/2017 MADL, SAKSHI L COMMUNITY PRODUCT SPECIALIST Ot 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 WITH RADICULOPATHY, CE 11/28/2017 MADL, SAKSHI L COMMUNITY PRODUCT SPECIALIST Ot I65.22 OCCLUSION AND STENOSIS OF LEFT CAROTID A 11/28/2017 MADL, SAKSHI L COMMUNITY PRODUCT SPECIALIST Ot Z12.31 ENCNTR SCREEN MAMMOGRAM FOR MALIGNANT NE 11/28/2017 MADL, SAKSHI L COMMUNITY PRODUCT SPECIALIST Ot I77 .9 DISORDER OF ARTERIES AND ARTERIOLES, UNS 11/28/2017 MADL, SAKSHI L COMMUNITY PRODUCT SPECIALIST Ot Z98.890 OTHER SPECIFIED POSTPROCEDURAL STATES 11/28/2017 BOBBI LEWIS MD Ot E78. 2 MIXED HYPERLIPIDEMIA 11/28/2017 BOBBI LEWIS MD Ot I10 ESSENTIAL (PRIMARY) HYPERTENSION 11/28/2017 BOBBI LEWIS MD Ot I25. 10 ATHSCL HEART DISEASE OF [place] CORONARY 11/28/2017 BOBBI LEWIS MD Ot R07. 89 OTHER CHEST PAIN 11/28/2017 BOBBI LEWIS MD Ot R60. 0 LOCALIZED EDEMA 11/29/2017 JASIEL KENDRICK SUPERVISOR MIRROR FABRICATION Ot Z13.820 ENCOUNTER FOR SCREENING FOR OSTEOPOROSIS 03/05/2018 Ot 427.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 03/05/2018 DANIELLA GONZALEZ DO Ot V76.12 OTH SCREEN MAMMO-MALIGN NEOPLASM OF [place] 03/05/2018 BOBBI LEWIS MD Ot 250. 00 DIAB GUILLERMO WO COMPL, TYPE II OR UNSPEC TY 03/05/2018 BOBBI LEWIS MD Ot 272. 4 HYPERLIPIDEMIA NEC/NOS 03/05/2018 BOBBI LEWIS MD Ot 401. 9 HYPERTENSION NOS 03/05/2018 BOBBI LEWIS MD Ot 414. 00 CORON ATHEROSCLER NOS TYPE VESSEL, NATIV 03/05/2018 BOBBI LEWIS MD Ot 780. 4 DIZZINESS AND GIDDINESS 03/05/2018 BOBBI LEWIS MD Ot 786. 50 CHEST PAIN NOS 03/05/2018 BOBBI LEWIS MD Ot 250. 00 DIAB GUILLERMO WO COMPL, TYPE II OR UNSPEC TY 03/05/2018 BOBBI LEWIS MD Ot 272. 4 HYPERLIPIDEMIA NEC/NOS 03/05/2018 BOBBI LEWIS MD Ot 401. 9 HYPERTENSION NOS 03/05/2018 BOBBI LEWIS MD Ot 414. 00 CORON ATHEROSCLER NOS TYPE VESSEL, NATIV 03/05/2018 BOBBI LEWIS MD Ot 786. 50 CHEST PAIN NOS 03/05/2018 RENATO MACE MD [...] GONZALEZ DO Ot 414.01 CORONARY ATHEROSCLEROSIS OF [place] CORON 03/05/2018 BOBBI LEWIS MD Ot 244. 9 HYPOTHYROIDISM NOS 03/05/2018 BOBBI LEWIS MD Ot 250. 00 DIAB GUILLERMO WO COMPL, TYPE II OR UNSPEC TY 03/05/2018 BOBBI LEWIS MD Ot 401. 9 HYPERTENSION NOS 03/05/2018 BOBBI LEWIS MD Ot 414. 00 CORON ATHEROSCLER NOS TYPE VESSEL, NATIV 03/05/2018 BOBBI LEWIS MD Ot 427. 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 NEC 03/05/2018 BOBBI LEWIS MD Ot 433. 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 2 SYNCOPE AND COLLAPSE 03/05/2018 BOBBI LEWIS MD Ot V58. 63 LONG-TERM(CURRENT)USE OF ANTIPLATELET/AN 03/05/2018 BOBBI LEWIS MD, Ot V58. 69 OTH MED,LT,CURRENT USE 03/05/2018 DANIELLA GONZALEZ DO [...] MCGUIRE Ot 427.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 NEC 03/05/2018 GELLENDER DODANIELLA Ot 244.9 HYPOTHYROIDISM NOS 03/05/2018 GELLENDER DO, DANIELLA Bradford Ot 250.00 DIAB GUILLERMO WO COMPL, TYPE II OR UNSPEC TY 03/05/2018 GELLENDER DO, DANIELLA Bradford Ot 250.00 DIAB GUILLERMO WO COMPL, TYPE II OR UNSPEC TY 03/05/2018 GELLENDER DO, DANIELLA Bradford Ot 780.2 SYNCOPE AND COLLAPSE 03/05/2018 Ot R53.83 OTH ER FATIGUE 03/05/2018 GELLENDER DODANIELLA Ot E03.9 HYPOTHYROIDISM, UNSPECIFIED 03/05/2018 GELLENDER DODANIELLA Ot I10 ESSENTIAL (PRIMARY) HYPERTENSION 03/05/2018 GELLENDER DODANIELLA Ot R05 COUGH 03/05/2018 GELLENDER DODANIELLA Ot R06.02 SHORTNESS OF BREATH 03/05/2018 GELLENDER DODANIELLA Ot R53.83 OTHER FATIGUE 03/05/2018 BOBBI LEWIS MD Ot E78. 2 MIXED HYPERLIPIDEMIA 03/05/2018 BOBBI LEWIS MD Ot I10 ESSENTIAL (PRIMARY) HYPERTENSION 03/05/2018 BOBBI LEWIS MD Ot I25. 10 ATHSCL HEART DISEASE OF [place] CORONARY 03/05/2018 BOBBI LEWIS MD Ot R06. 02 SHORTNESS OF BREATH 03/05/2018 BOBBI LEWIS MD Ot R07. 89 OTHER CHEST PAIN 03/05/2018 GELLENDER DODANIELLA Ot E03.9 HYPOTHYROIDISM, UNSPECIFIED 03/05/2018 GELLENDER DODANIELLA Ot E78.5 HYPERLIPIDEMIA, UNSPECIFIED 03/05/2018 GELLENDER DODANIELLA Ot E03.9 HYPOTHYROIDISM, UNSPECIFIED 03/05/2018 KATHRIN MCGUIRE K Ot E78.2 MIXED HYPERLIPIDEMIA 03/05/2018 YEN ALYSSA KATHRIN Mensah Ot I25.10 ATHSCL HEART DISEASE OF [place] CORONARY 03/05/2018 YEN ALYSSA KATHRIN Mensah Ot E78.2 MIXED HYPERLIPIDEMIA 03/05/2018 YEN ALYSSA KATHRIN Mensah Ot I10 ESSENTIAL (PRIMARY) HYPERTENSION 03/05/2018 YEN ALYSSA KATHRIN Mensah Ot I25.10 ATHSCL HEART DISEASE OF [place] CORONARY 03/05/2018 YEN ALYSSA KATHRIN Mensah Ot R07.89 OTHER CHEST PAIN 03/05/2018 YEN ALYSSA KATHRIN Mensah Ot E78.2 MIXED HYPERLIPIDEMIA 03/05/2018 SAAVEDRAWARREN ALYSSA KATHRIN Mensah Ot I10 ESSENTIAL (PRIMARY) HYPERTENSION 03/05/2018 YEN ALYSSA KATHRIN Mensah Ot I25.10 ATHSCL HEART DISEASE OF [place] CORONARY 03/05/2018 SAAVEDRA-NATHALIA SHAH KATHRIN Mensah Ot R07.89 OTHER CHEST PAIN 03/05/2018 DANIELLA GONZALEZ DO A Ot Z12.31 ENCNTR SCREEN MAMMOGRAM FOR MALIGNANT NE 03/05/2018 YEN ALYSSA KATHRIN Mensah Ot E78.2 MIXED HYPERLIPIDEMIA 03/05/2018 MADL, SAKSHI L COMMUNITY PRODUCT SPECIALIST Ot 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 WITH RADICULOPATHY, CE 03/05/2018 MADL, SAKSHI L COMMUNITY PRODUCT SPECIALIST Ot I65.22 OCCLUSION AND STENOSIS OF LEFT CAROTID A 03/05/2018 MADL, SAKSHI L COMMUNITY PRODUCT SPECIALIST Ot Z12.31 ENCNTR SCREEN MAMMOGRAM FOR MALIGNANT NE 03/05/2018 MADL, SAKSHI L COMMUNITY PRODUCT SPECIALIST Ot I77 .9 DISORDER OF ARTERIES AND ARTERIOLES, UNS 03/05/2018 MADL, SAKSHI L COMMUNITY PRODUCT SPECIALIST Ot Z98.890 OTHER SPECIFIED POSTPROCEDURAL STATES 03/05/2018 BOBBI LEWIS MD Ot E78. 2 MIXED HYPERLIPIDEMIA 03/05/2018 BOBBI LEWIS MD Ot I10 ESSENTIAL (PRIMARY) HYPERTENSION 03/05/2018 BOBBI LEWIS MD Ot I25. 10 ATHSCL HEART DISEASE OF [place] CORONARY 03/05/2018 BOBBI LEWIS MD Ot R07. 89 OTHER CHEST PAIN 03/05/2018 JOSHUA ROJO, BOBBI Olivera Ot R60. 0 LOCALIZED EDEMA 03/05/2018 JASIEL KENDRICK SUPERVISOR MIRROR FABRICATION Ot Z13.820 ENCOUNTER FOR SCREENING FOR OSTEOPOROSIS 03/18/2018 JASIEL KENDRICK SUPERVISOR MIRROR FABRICATION Ot Z12.31 ENCNTR SCREEN MAMMOGRAM FOR MALIGNANT NE 03/23/2018 JASIEL KENDRICK SUPERVISOR MIRROR FABRICATION Ot Z12.31 ENCNTR SCREEN MAMMOGRAM FOR MALIGNANT NE 04/05/2018 ABEBA OBRIEN APRN Ot E03 .9 HYPOTHYROIDISM, UNSPECIFIED 04/05/2018 ABEBA OBRIEN APRN Ot E11 .9 TYPE 2 DIABETES MELLITUS WITHOUT COMPLIC 04/05/2018 ABEBA OBRIEN APRN Ot E78.00 PURE HYPERCHOLESTEROLEMIA, UNSPECIFIED 04/05/2018 ABEBA OBRIEN APRN Ot I10 ESSENTIAL (PRIMARY) HYPERTENSION 04/05/2018 ABEBA OBRIEN APRN Ot I25.10 ATHSCL HEART DISEASE OF [place] CORONARY 04/05/2018 ABEBA OBRIEN APRN Ot I73 .9 PERIPHERAL VASCULAR DISEASE, UNSPECIFIED 04/05/2018 ABEBA OBRIEN APRN Ot R42 DIZZINESS AND GIDDINESS 04/05/2018 ABEBA OBRIEN APRN Ot Z79.02 PRODUCTION CONTROL ANALYST (CURRENT) USE OF ANTITHROMBOTI 04/05/2018 ABEBA OBRIEN APRN Ot Z79.52 SHELTER (CURRENT) USE OF SYSTEMIC STER 04/05/2018 ABEBA OBRIEN APRN Ot Z79.82 PRODUCTION CONTROL ANALYST (CURRENT) USE OF ASPIRIN 04/05/2018 ABEBA OBRIEN APRN Ot Z80.51 FAMILY HISTORY OF MALIGNANT NEOPLASM OF 04/05/2018 ABEBA OBRIEN APRN Ot Z80 .8 FAMILY HISTORY OF MALIGNANT NEOPLASM OF 04/05/2018 [...] OTHER ORGANS 04/05/2018 ABEBA OBRIEN APRN Ot Z95 .5 PRESENCE OF CORONARY ANGIOPLASTY IMPLANT 04/05/2018 ABEBA OBRIEN APRN Ot Z95 .9 PRESENCE OF CARDIAC AND VASCULAR IMPLANT 04/05/2018 ABEBA OBRIEN APRN Ot Z98.890 OTHER SPECIFIED POSTPROCEDURAL STATES 04/05/2018 JASIEL KENDRICK ARTURO Ot Z13.820 ENCOUNTER FOR SCREENING FOR OSTEOPOROSIS 04/08/2018 ABEBA OBRIEN APRN Ot E03 .9 HYPOTHYROIDISM, UNSPECIFIED 04/08/2018 ABEBA OBRIEN APRN Ot E11 .9 TYPE 2 DIABETES MELLITUS WITHOUT COMPLIC 04/08/2018 ABEBA OBRIEN APRN Ot E78.00 PURE HYPERCHOLESTEROLEMIA, UNSPECIFIED 04/08/2018 ABEBA OBRIEN APRN Ot I10 ESSENTIAL (PRIMARY) HYPERTENSION 04/08/2018 ABEBA OBRIEN APRN Ot I25.10 ATHSCL HEART DISEASE OF [place] CORONARY 04/08/2018 ABEBA OBRIEN APRN Ot I73 .9 PERIPHERAL VASCULAR DISEASE, UNSPECIFIED 04/08/2018 ABEBA OBRIEN APRN Ot R42 DIZZINESS AND GIDDINESS 04/08/2018 ABEBA OBRIEN APRN Ot Z79.02 SHELTER (CURRENT) USE OF ANTITHROMBOTI 04/08/2018 ABEBA OBRIEN APRN Ot Z79.52 PRODUCTION CONTROL ANALYST (CURRENT) USE OF SYSTEMIC STER 04/08/2018 ABEBA OBRIEN APRN Ot Z79.82 SHELTER (CURRENT) USE OF ASPIRIN 04/08/2018 ABEBA OBRIEN APRN Ot Z80.51 FAMILY HISTORY OF MALIGNANT NEOPLASM OF 04/08/2018 ABEBA OBRIEN APRN Ot Z80 .8 FAMILY HISTORY OF MALIGNANT NEOPLASM OF 04/08/2018 ABEBA OBRIEN APRN Ot Z82.49 FAMILY HX OF ISCHEM HEART DIS AND OTH DI 04/08/2018 ABEBA OBRIEN APRN Ot Z86.73 PRSNL HX OF TIA (TIA), AND CEREB INFRC W 04/08/2018 ABEBA OBRIEN APRN Ot Z87.448 PERSONAL HISTORY OF OTHER DISEASES OF UR 04/08/2018 ABEBA OBRIEN APRN Ot Z87.891 PERSONAL HISTORY OF NICOTINE DEPENDENCE 04/08/2018 OBRIEN, PETER J SUPERVISOR MIRROR FABRICATION Ot Z90.89 ACQUIRED ABSENCE OF OTHER ORGANS 04/08/2018 ABEBA OBRIEN SUPERVISOR MIRROR FABRICATION Ot Z95 .5 PRESENCE OF CORONARY ANGIOPLASTY IMPLANT 04/08/2018 ABEBA OBRIEN SUPERVISOR MIRROR FABRICATION Ot Z95 .9 PRESENCE OF CARDIAC AND VASCULAR IMPLANT 04/08/2018 ABEBA OBRIEN SUPERVISOR MIRROR FABRICATION Ot Z98.890 OTHER SPECIFIED POSTPROCEDURAL STATES 04/12/2018 JASIEL KENDRICK SUPERVISOR MIRROR FABRICATION Ot Z13.820 ENCOUNTER FOR SCREENING FOR OSTEOPOROSIS 04/12/2018 Ot 427.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 04/15/2018 SHAHEEN JIMÉNEZ Ot E03.9 HYPOTHYROIDISM, UNSPECIFIED 04/15/2018 SHAHEEN JIMÉNEZ Ot E11.59 TYPE 2 DIABETES MELLITUS WITH OTH CIRCUL 04/15/2018 SHAHEEN JIMÉNEZ Ot E78.00 PURE HYPERCHOLESTEROLEMIA, UNSPECIFIED 04/15/2018 SHAHEEN JIMÉNEZ Ot I10 ESSENTIAL (PRIMARY) HYPERTENSION 04/15/2018 SHAHEEN JIMÉNEZ Ot I25.10 ATHSCL HEART DISEASE OF [place] CORONARY 04/15/2018 SHAHEEN JIMÉNEZ Ot I73.9 PERIPHERAL [...] OF T 04/15/2018 SHAHEEN JIMÉNEZ Ot Z79.02 SHELTER (CURRENT) USE OF ANTITHROMBOTI 04/15/2018 SHAHEEN JIMÉNEZ Ot Z79.52 PRODUCTION CONTROL ANALYST (CURRENT) USE OF SYSTEMIC STER 04/15/2018 SHAHEEN JIMÉNEZ Ot Z79.82 PRODUCTION CONTROL ANALYST (CURRENT) USE OF ASPIRIN 04/15/2018 RUSSEL JIMÉNEZIS Ot Z80.51 FAMILY HISTORY OF MALIGNANT NEOPLASM OF 04/15/2018 SHAHEEN JIMÉNEZ Ot Z80.8 FAMILY HISTORY OF MALIGNANT NEOPLASM OF 04/15/2018 SHAHEEN JIMÉNEZ Ot Z82.49 FAMILY HX OF ISCHEM HEART DIS AND OTH DI 04/15/2018 SHAHEEN JIMÉNEZ Ot Z87.448 PERSONAL HISTORY OF OTHER DISEASES OF UR 04/15/2018 SHAHEEN JIMÉNEZ Ot Z87.891 PERSONAL HISTORY OF NICOTINE DEPENDENCE 04/15/2018 RUSSEL JIMÉNEZIS Ot Z88.2 ALLERGY STATUS TO SULFONAMIDES STATUS 04/15/2018 RUSSEL JIMÉNEZIS Ot Z90.89 ACQUIRED ABSENCE OF OTHER ORGANS 04/15/2018 SHAHEEN JIMÉNEZ Ot Z95.5 PRESENCE OF CORONARY ANGIOPLASTY IMPLANT 04/15/2018 RUSSEL JIMÉNEZIS Ot Z95.9 PRESENCE OF CARDIAC AND VASCULAR IMPLANT 04/15/2018 RUSSEL JIMÉNEZIS Ot Z98.890 OTHER SPECIFIED POSTPROCEDURAL STATES 04/18/2018 SHAHEEN JIMÉNEZ Ot E03.9 HYPOTHYROIDISM, UNSPECIFIED 04/18/2018 RUSSEL JIMÉNEZIS Ot E11.59 TYPE 2 DIABETES MELLITUS WITH OTH CIRCUL 04/18/2018 RUSSEL JIMÉNEZIS Ot E78.00 PURE HYPERCHOLESTEROLEMIA, UNSPECIFIED 04/18/2018 RUSSEL JIMÉNEZIS Ot I10 ESSENTIAL (PRIMARY) HYPERTENSION 04/18/2018 RUSSEL JIMÉNEZIS Ot I25.10 ATHSCL HEART DISEASE OF [place] CORONARY 04/18/2018 RUSSEL JIMÉNEZIS Ot I73.9 PERIPHERAL VASCULAR DISEASE, UNSPECIFIED 04/18/2018 RUSSEL JIMÉNEZIS Ot M25.512 PAIN IN LEFT SHOULDER 04/18/2018 [...] OF T 04/18/2018 SHAHEEN JIMÉNEZ Ot Z79.02 SHELTER (CURRENT) USE OF ANTITHROMBOTI 04/18/2018 SHAHEEN JIMÉNEZ Ot Z79.52 SHELTER (CURRENT) USE OF SYSTEMIC STER 04/18/2018 SHAHEEN JIMÉNEZ Ot Z79.82 SHELTER (CURRENT) USE OF ASPIRIN 04/18/2018 SHAHEEN JIMÉNEZ [...] JIMÉNEZ Ot Z98.890 OTHER SPECIFIED POSTPROCEDURAL STATES 10/03/2018 FLORECITA BROWN DO Ot Z01.8 18 ENCOUNTER FOR OTHER PREPROCEDURAL EXAMIN 10/07/2018 FLORECITA BROWN DO Ot Z01.8 18 ENCOUNTER FOR OTHER PREPROCEDURAL EXAMIN 10/07/2018 FLORECITA BROWN DO Ot Z01.8 18 ENCOUNTER FOR OTHER PREPROCEDURAL EXAMIN 10/08/2018 FLORECITA BROWN DO Ot D17.1 BENIGN LIPOMATOUS NEOPLASM OF SKIN, SUBC 10/08/2018 FLORECITA BROWN DO Ot E03.9 HYPOTHYROIDISM, UNSPECIFIED 10/08/2018 FLORECITA BROWN DO B Ot E11.9 TYPE 2 DIABETES MELLITUS WITHOUT COMPLIC 10/08/2018 FLORECITA BROWN DO Ot E66.0 9 OTHER OBESITY DUE TO EXCESS CALORIES 10/08/2018 FLORECITA BROWN DO B Ot E78.5 HYPERLIPIDEMIA, UNSPECIFIED 10/08/2018 FLORECITA BROWN DO B Ot G43.9 09 MIGRAINE, UNSP, NOT INTRACTABLE, WITHOUT 10/08/2018 FLORECITA BROWN DO B Ot I10 ESSENTIAL (PRIMARY) HYPERTENSION 10/08/2018 FLORECITA BROWN DO Ot I25.1 0 ATHSCL HEART DISEASE OF [place] CORONARY 10/08/2018 FLORECITA BROWN DO Ot I65.2 3 OCCLUSION AND STENOSIS OF BILATERAL [place] 10/08/2018 FLORECITA BROWN DO B Ot I73.9 PERIPHERAL VASCULAR DISEASE, UNSPECIFIED 10/08/2018 FLORECITA BROWN DO B Ot K21.9 GASTRO-ESOPHAGEAL REFLUX DISEASE WITHOUT 10/08/2018 FLORECITA BROWN DO Ot M19.9 1 PRIMARY OSTEOARTHRITIS, UNSPECIFIED SITE 10/08/2018 FLORECITA BROWN DO B Ot M50.2 0 OTHER CERVICAL DISC DISPLACEMENT, UNSP C 10/08/2018 FLORECITA BROWN DO Ot R07.9 CHEST PAIN, UNSPECIFIED 10/08/2018 FLORECITA BROWN DO Ot R22.2 LOCALIZED SWELLING, MASS AND LUMP, TRUNK 10/08/2018 FLORECITA BROWN DO Ot Z45.0 9 ENCOUNTER FOR ADJUSTMENT AND MANAGEMENT 10/08/2018 FLORECITA BROWN DO Ot Z68.3 2 BODY MASS INDEX (BMI) 32.0-32.9, ADULT 10/08/2018 FLORECITA BROWN DO B Ot Z79.0 2 PRODUCTION CONTROL ANALYST (CURRENT) USE OF ANTITHROMBOTI 10/08/2018 FLORECITA BROWN DO Ot Z79.8 2 PRODUCTION CONTROL ANALYST (CURRENT) USE OF ASPIRIN 10/08/2018 DELMAN DO, FLORECITA B Ot Z79.8 99 OTHER SHELTER (CURRENT) DRUG THERAPY 10/08/2018 JOAN BROWN DOIC B Ot Z86.7 3 PRSNL HX OF TIA (TIA), AND CEREB INFRC W 10/08/2018 FLORECITA BROWN DO Ot Z88.2 ALLERGY STATUS TO SULFONAMIDES STATUS 10/08/2018 JOAN BROWN DOIC B Ot Z95.5 PRESENCE OF CORONARY ANGIOPLASTY IMPLANT 10/14/2018 YEN SHAH, KATHRIN Mensah Ot I10 ESSENTIAL (PRIMARY) HYPERTENSION 10/15/2018 JOAN BROWN DOIC B Ot D17.1 BENIGN LIPOMATOUS NEOPLASM OF SKIN, SUBC 10/15/2018 FLORECITA BROWN DO B Ot E03.9 HYPOTHYROIDISM, UNSPECIFIED 10/15/2018 FLORECITA BROWN DO B Ot E11.9 TYPE 2 DIABETES MELLITUS WITHOUT COMPLIC 10/15/2018 JOAN BROWN DOIC B Ot E66.0 9 OTHER OBESITY DUE TO EXCESS CALORIES 10/15/2018 FLORECITA BROWN DO B Ot E78.5 HYPERLIPIDEMIA, UNSPECIFIED 10/15/2018 JOAN BROWN DOIC B Ot G43.9 09 MIGRAINE, UNSP, NOT INTRACTABLE, WITHOUT 10/15/2018 JOAN BROWN DOIC B Ot I10 ESSENTIAL (PRIMARY) HYPERTENSION 10/15/2018 JOAN BROWN DOIC B Ot I25.1 0 ATHSCL HEART DISEASE OF [place] CORONARY 10/15/2018 JOAN BROWN DOIC B Ot I65.2 3 OCCLUSION AND STENOSIS OF BILATERAL [place] 10/15/2018 JOAN BROWN DOIC B Ot I73.9 PERIPHERAL VASCULAR DISEASE, UNSPECIFIED 10/15/2018 FLORECITA BROWN DO B Ot K21.9 GASTRO-ESOPHAGEAL REFLUX DISEASE WITHOUT 10/15/2018 JOAN BROWN DOIC B Ot M19.9 1 PRIMARY OSTEOARTHRITIS, UNSPECIFIED SITE 10/15/2018 FLORECITA BROWN DO B Ot M50.2 0 OTHER CERVICAL DISC DISPLACEMENT, UNSP C 10/15/2018 FLORECITA BROWN DO B Ot R07.9 CHEST PAIN, UNSPECIFIED 10/15/2018 FLOERCITA BROWN DO B Ot Z45.0 9 ENCOUNTER FOR ADJUSTMENT AND MANAGEMENT 10/15/2018 FLORECITA BROWN DO Ot Z68.3 2 BODY MASS INDEX (BMI) 32.0-32.9, ADULT 10/15/2018 FLORECITA BROWN DO Ot Z79.0 2 PRODUCTION CONTROL ANALYST (CURRENT) USE OF ANTITHROMBOTI 10/15/2018 FLORECITA BROWN DO Ot Z79.8 2 PRODUCTION CONTROL ANALYST (CURRENT) USE OF ASPIRIN 10/15/2018 FLORECITA BROWN DO Ot Z79.8 99 OTHER PRODUCTION CONTROL ANALYST (CURRENT) DRUG THERAPY 10/15/2018 FLORECITA BROWN DO Ot Z86.7 3 PRSNL HX OF TIA (TIA), AND CEREB INFRC W 10/15/2018 FLORECITA BROWN DO Ot Z88.2 ALLERGY STATUS TO SULFONAMIDES STATUS 10/15/2018 FLORECITA BROWN DO Ot Z95.5 PRESENCE OF CORONARY ANGIOPLASTY IMPLANT 10/22/2018 KATHRIN MCGUIRE Ot E11.9 TYPE 2 DIABETES MELLITUS WITHOUT COMPLIC 10/22/2018 KATHRIN MCGUIRE Ot I08.0 RHEUMATIC DISORDERS OF BOTH MITRAL AND A 10/22/2018 KATHRIN MCGUIRE Ot I10 ESSENTIAL (PRIMARY) HYPERTENSION 10/22/2018 KATHRIN MCGUIRE Ot I25.10 ATHSCL HEART DISEASE OF [place] CORONARY 10/23/2018 FLORECITA BROWN DO Ot D17.1 BENIGN LIPOMATOUS NEOPLASM OF SKIN, SUBC 10/23/2018 FLORECITA BROWN DO Ot E03.9 HYPOTHYROIDISM, UNSPECIFIED 10/23/2018 FLORECITA BROWN DO Ot E11.9 TYPE 2 DIABETES MELLITUS WITHOUT COMPLIC 10/23/2018 FLORECITA BROWN DO Ot E66.0 9 OTHER OBESITY DUE TO EXCESS CALORIES 10/23/2018 FLORECITA BROWN DO Ot E78.5 HYPERLIPIDEMIA, UNSPECIFIED 10/23/2018 FLORECITA BROWN DO Ot G43.9 09 MIGRAINE, UNSP, NOT INTRACTABLE, WITHOUT 10/23/2018 JOAN BROWN DOIC Morenita Ot I10 ESSENTIAL (PRIMARY) HYPERTENSION 10/23/2018 FLORECITA BROWN DO Ot I25.1 0 ATHSCL HEART DISEASE OF [place] CORONARY 10/23/2018 FLORECITA BROWN DO Ot I65.2 3 OCCLUSION AND STENOSIS OF BILATERAL [place] 10/23/2018 FLORECITA BROWN DO Ot I73.9 PERIPHERAL VASCULAR DISEASE, UNSPECIFIED 10/23/2018 FLORECITA BROWN DO Ot K21.9 GASTRO-ESOPHAGEAL REFLUX DISEASE WITHOUT 10/23/2018 FLORECITA BROWN DO B Ot M19.9 1 PRIMARY OSTEOARTHRITIS, UNSPECIFIED SITE 10/23/2018 JOAN BROWN DOASHWIN Xavier Ot M50.2 0 OTHER CERVICAL DISC DISPLACEMENT, UNSP C 10/23/2018 JOAN BROWN DOIC Morenita Ot R07.9 CHEST PAIN, UNSPECIFIED 10/23/2018 KEVIN MALDONADO FLORECITA Morenita Ot Z45.0 9 ENCOUNTER FOR ADJUSTMENT AND MANAGEMENT 10/23/2018 JOAN BROWN DOASHWIN Xavier Ot Z68.3 2 BODY MASS INDEX (BMI) 32.0-32.9, ADULT 10/23/2018 KEVIN MALDONADO FLORECITA Morenita Ot Z79.0 2 SHELTER (CURRENT) USE OF ANTITHROMBOTI 10/23/2018 KEVIN MALDONADOFLORECITA B Ot Z79.8 2 PRODUCTION CONTROL ANALYST (CURRENT) USE OF ASPIRIN 10/23/2018 KEVIN MALDONADOFLORECITA B Ot Z79.8 99 OTHER SHELTER (CURRENT) DRUG THERAPY 10/23/2018 KEVIN MALDONADO FLORECITA B Ot Z86.7 3 PRSNL HX OF TIA (TIA), AND CEREB INFRC W 10/23/2018 KEVIN MALDONADO FLORECITA B Ot Z88.2 ALLERGY STATUS TO SULFONAMIDES STATUS 10/23/2018 KEVIN MALDONADO FLORECITA B Ot Z95.5 PRESENCE OF CORONARY ANGIOPLASTY IMPLANT 11/29/2018 LEISURE, LYNIETA W 786.52 PAINFUL RESPIRATION 11/29/2018 LEISURE, LYNIETA W R07.89 OTHER CHEST PAIN 11/29/2018 LEISURE, LYNIETA W 786.52 PAINFUL RESPIRATION 11/29/2018 LEISURE, LYNIETA W R07.89 OTHER CHEST PAIN 11/29/2018 LEISURE, LYNIETA W 786.52 PAINFUL RESPIRATION 11/29/2018 LEISURE, LYNIETA W R07.89 OTHER CHEST PAIN 04/26/2019 CHRIS JAIMES APRN W 338 .2 CHRONIC PAIN 04/26/2019 CHRIS JAIMES APRN W 682 .5 CELLULITIS AND ABSCESS OF BUTTOCK 04/26/2019 CHRIS JAIMES APRN W 724 .2 LUMBAGO 04/26/2019 CHRIS JAIMES APRN W G89 .29 OTHER CHRONIC PAIN 04/26/2019 CHRIS JAIMES APRN W L02 .31 CUTANEOUS ABSCESS OF BUTTOCK 04/26/2019 CHRIS JAIMES APRN W M54 .5 LOW BACK PAIN 04/26/2019 CHRIS JAIMES APRN W R07 .89 OTHER CHEST PAIN 09/15/2019 JASIEL KENDRICK W 719.41 PAIN IN JOINT INVOLVING SHOULDER REGION 09/15/2019 JASIEL KENDRICK W M25.512 PAIN IN LEFT SHOULDER 09/15/2019 JASIEL KENDRICK W R07.89 OTHER CHEST PAIN 09/18/2019 JASIEL KENDRICK W 719.41 PAIN IN JOINT INVOLVING SHOULDER REGION 09/18/2019 JASIEL KENDRICK W M25.512 PAIN IN LEFT SHOULDER 09/25/2019 BenjamínJon stevenson W 845.00 UNSPECIFIED SITE OF ANKLE SPRAIN 09/25/2019 Jon Taylor W M25.512 PAIN IN LEFT SHOULDER 09/25/2019 Jon Taylor W R07.89 OTHER CHEST PAIN 09/25/2019 Jon Taylor W S93.402A SPRAIN OF UNSPECIFIED LIGAMENT OF LEFT ANKLE, INITIAL ENCOUNTER 10/29/2019 KATHRIN MCGUIRE Ot E11.9 TYPE 2 DIABETES MELLITUS WITHOUT COMPLIC 10/29/2019 KATHRIN MCGUIRE Ot 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 9 TYPE 2 DIABETES MELLITUS WITHOUT COMPLIC 11/05/2019 BOBBI LEWIS MD Ot E78. 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 10 ATHSCL HEART DISEASE OF [place] CORONARY 11/05/2019 BOBBI LEWIS MD Ot E11. 9 TYPE 2 DIABETES MELLITUS WITHOUT COMPLIC 11/05/2019 BOBBI LEWIS MD Ot E78. 2 MIXED HYPERLIPIDEMIA 11/05/2019 BOBBI LEWIS MD Ot I10 ESSENTIAL (PRIMARY) HYPERTENSION 11/05/2019 BOBBI LEWIS MD Ot I25. 10 ATHSCL HEART DISEASE OF [place] CORONARY 11/09/2019 BOBBI LEWIS MD Ot E11. 9 TYPE 2 DIABETES MELLITUS WITHOUT COMPLIC 11/09/2019 BOBBI LEWIS MD Ot E78. 5 HYPERLIPIDEMIA, UNSPECIFIED 11/09/2019 BOBBI LEWIS MD Ot I08. 0 RHEUMATIC DISORDERS OF BOTH MITR[place] AND A 11/09/2019 BOBBI LEWIS MD Ot I10 ESSENTIAL (PRIMARY) HYPERTENSION 11/09/2019 BOBBI LEWIS MD Ot I25. 10 ATHSCL HEART DISEASE OF [place] CORONARY 11/16/2019 KATHRIN MCGUIRE Ot E11.9 TYPE 2 DIABETES MELLITUS WITHOUT COMPLIC 11/16/2019 KATHRIN MCGUIRE Ot I08.0 RHEUMATIC DISORDERS OF BOTH MITRAL AND A 11/16/2019 KATHRIN MCGUIRE Ot I10 ESSENTIAL (PRIMARY) HYPERTENSION 11/16/2019 KATHRIN MCGUIRE Ot I25.10 ATHSCL HEART DISEASE OF [place] CORONARY 11/16/2019 BOBBI LEWIS MD Ot E11. 9 TYPE 2 DIABETES MELLITUS WITHOUT COMPLIC 11/16/2019 BOBBI LEWIS MD Ot E78. 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 10 ATHSCL HEART DISEASE OF [place] CORONARY 11/16/2019 BOBBI LEWIS MD Ot E11. 9 TYPE 2 DIABETES MELLITUS WITHOUT COMPLIC 11/16/2019 BOBBI LEWIS MD Ot E78. 2 MIXED HYPERLIPIDEMIA 11/16/2019 BOBBI LEWIS MD Ot I10 ESSENTIAL (PRIMARY) HYPERTENSION 11/16/2019 BOBBI LEWIS MD Ot I25. 10 ATHSCL HEART DISEASE OF [place] CORONARY 11/18/2019 BOBBI LEWIS MD Ot Z01.818 ENCOUNTER FOR OTHER PREPROCEDURAL EXAMIN 11/18/2019 BOBBI LEWIS MD Ot Z01.818 ENCOUNTER FOR OTHER PREPROCEDURAL EXAMIN 11/23/2019 JOSHUA ROJO, BOBBI Olivera Ot E11. 9 TYPE 2 DIABETES MELLITUS WITHOUT COMPLIC 11/23/2019 BOBBI LEWIS MD, Ot E78. 2 MIXED HYPERLIPIDEMIA 11/23/2019 BOBBI LEWIS MD, Ot I10 ESSENTIAL (PRIMARY) HYPERTENSION 11/23/2019 BOBBI LEWIS MD, Ot I25. 10 ATHSCL HEART DISEASE OF [place] CORONARY Procedures Code Description [place] [address] BIOP SY SKIN LESION 06/05/2012 00.40 PROC EDURE ON SINGLE VESSEL 04/01/2013 38.12 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 04/01/2013 Results Test Result Range CBC With Differential/Platelet - 6 09:41 WBC 11.2 x10E3/uL 3.4-10.8 RBC 5.02 x10E6/uL 3.77-5.28 Hemoglobin 13.7 g/dL 11.1-15.9 Hematocrit 41.7 % 34.0-46.6 MCV 83 fL 79-97 MCH 27.3 pg 26.6-33.0 MCHC 32.9 g/dL 31.5-35.7 RDW 15.3 % 12.3-15.4 Platelets 267 x10E3/uL 150-379 Neutrophils 44 % Lymphs 41 % Monocytes 10 % Eos 3 % Basos 1 % Neutrophils (Absolute) 5.0 x10E3/uL 1.4- 7.0 Lymphs (Absolute) 4.6 x10E3/uL 0.7-3.1 Monocytes(Absolute) 1.1 x10E3/uL 0.1-0.9 Eos (Absolute) 0.3 x10E3/uL 0.0-0.4 Baso (Absolute) 0.1 x10E3/uL 0.0-0.2 Immature Granulocytes 1 % Immature Grans (Abs) 0.1 x10E3/uL 0.0-0. 1 Comp. Metabolic Panel (14) - 05/11/16 09 :41 Glucose, Serum 89 mg/dL 65-99 BUN 29 [...] 05/11/16 09:41 Vitamin D, 25-Hydroxy 9.2 ng/mL 30.0-100 .0 Liver function panel (serum or plasma al k phos, alb, total and direct bili, total protein, ALT, AST) - 06/16/16 12:15 Serum or plasma total bilirubin measurement (mass/volu me) 0.4 mg/dL 0.1-1.0 Serum or plasma alkaline phosphatase bryn surement (enzymatic activity/volume) 48 U/L 40-136 Serum or plasma aspartate aminotransfera se measurement (enzymatic activity/volume) 13 U/L 5-34 Serum or plasma alanine aminotransferase measurement (enzymatic activity/volume) 13 U/L 0-55 Serum or plasma protein measurement (mass/volume) 6.9 g/dL 6.4-8.2 Serum or plasma albumin measurement (mass/volume) 4.3 g/dL 3.2-4.5 Bilirubin direct 0.1 mg/dL 0.0-0.3 Serum or plasma indirect bilirubin measurement (mass/v olume) 0.3 mg/dL NR Lipid 1996 panel - 06/16/16 12:15 Serum or plasma triglyceride measurement (mass/volume) 317 mg/dL <150 Serum or plasma cholesterol measurement (mass/volume) 289 mg/dL < 200 Serum or plasma cholesterol in HDL measurement (mass/v olume) 43 mg/dL 40-60 Cholesterol in LDL [mass/volume] in serum or plasma by direct assay 194 mg/dL 1-129 Serum or plasma cholesterol in VLDL measurement (mass/ volume) 63 mg/dL 5-40 Automated blood complete blood count (he mogram) panel - 06/27/16 09:03 Blood leukocytes automated count (number/volume) 7.6 10*3/uL 4.3-11.0 Blood erythrocytes automated count (number/volume) 4.70 10*6/uL 4.35-5.85 Venous blood hemoglobin measurement (mass/volume) 13.2 g/dL 11.5-16.0 Blood hematocrit (volume fraction) 39 % 35-52 Automated erythrocyte mean corpuscular volume 82 [ foz_us] 80-99 Automated erythrocyte mean corpuscular h emoglobin (mass per erythrocyte) 28 pg 25-34 Automated erythrocyte mean corpuscular h emoglobin concentration measurement (mass/volume) 34 g/dL 32-36 Automated erythrocyte distribution width ratio 15. 7 % 10.0- 14.5 Automated blood platelet count (count/volume) 250 10*3/uL 130-400 Automated blood platelet mean volume measurement 10.7 [foz_us] 7.4-10.4 PT panel in platelet poor plasma by coag ulation assay - 06/27/16 09:03 Prothrombin time (PT) in platelet poor plasma by coagu lation assay 11.9 s 12.2-14.7 INR in platelet poor plasma or blood by coagulation as say 0.9 0.8-1.4 Activated partial thromboplastin time (a PTT) in platelet poor plasma bycoagulation assay - 06/27/16 09:03 Activated partial thromboplastin time (a PTT) in platelet poor plasma bycoagulation assay 26 s 24-35 Comprehensive metabolic panel - 06/27/16 09:03 Serum or plasma sodium measurement (moles/volume) 143 mmol/L 135-145 Serum or plasma potassium measurement (moles/volume) 4.0 mmol/L 3.6-5.0 Serum or plasma chloride measurement (moles/volume) 109 mmol/L 98-107 Carbon dioxide 26 mmol/L 21-32 Serum or plasma anion gap determination (moles/volume) 8 mmol/L 5-14 Serum or plasma urea nitrogen measurement (mass/volume ) 28 mg/dL 7-18 Serum or plasma creatinine measurement (mass/volume) 0.86 mg/dL 0.60-1.30 Serum or plasma urea nitrogen/creatinine mass ratio 33 NRG Serum or plasma creatinine measurement w ith calculation of estimated glomerular filtration rate > NRG Serum or plasma glucose measurement (mass/volume) 110 mg/dL 70-105 Serum or plasma calcium measurement (mass/volume) 9.8 mg/dL 8.5-10.1 Serum or plasma total bilirubin measurement (mass/volu me) 0.5 mg/dL 0.1-1.0 Serum or plasma alkaline phosphatase bryn surement (enzymatic activity/volume) 47 U/L 40-136 Serum or plasma aspartate aminotransfera se measurement (enzymatic activity/volume) 13 U/L 5-34 Serum or plasma alanine aminotransferase measurement (enzymatic activity/volume) 13 U/L 0-55 Serum or plasma protein measurement (mass/volume) 6.9 g/dL 6.4-8.2 Serum or plasma albumin measurement (mass/volume) 4.3 g/dL 3.2-4.5 Methicillin resistant Staphylococcus aur eus (MRSA) screening culture - 06/27/16 09:03 Methicillin resistant Staphylococcus aureus (MRSA) scr eening culture NEG NR Comp. Metabolic Panel (14) - 07/17/16 00 :00 Glucose, Serum 93 mg/dL 65-99 BUN 12 [...] IU/L 0-32 Complete blood count (CBC) with automate d white blood cell (WBC) differential - 07/21/16 19:25 Blood leukocytes automated count (number/volume) 13.0 10*3/uL 4.3-11.0 Blood erythrocytes automated count (number/volume) 4.46 10*6/uL 4.35-5.85 Venous blood hemoglobin measurement (mass/volume) 12.6 g/dL 11.5-16.0 Blood hematocrit (volume fraction) 37 % 35-52 Automated erythrocyte mean corpuscular volume 84 [ foz_us] 80-99 Automated erythrocyte mean corpuscular h emoglobin (mass per erythrocyte) 28 pg 25-34 Automated erythrocyte mean corpuscular h emoglobin concentration measurement (mass/volume) 34 g/dL 32-36 Automated erythrocyte distribution width ratio 15. 6 % 10.0- 14.5 Automated blood platelet count [...] 10*3 1.0-4.0 Blood monocytes automated count (number/volume) 0. 8 10*3 0.0-1.0 Automated eosinophil count 0.3 10*3/uL 0 .0-0.3 Automated blood basophil count (count/volume) 0.1 10*3/uL 0.0-0.1 Whole blood basic metabolic panel - 07/11 05/29 19:25 Serum or plasma sodium measurement (moles/volume) 144 mmol/L 135-145 Serum or plasma potassium measurement (moles/volume) 3.8 mmol/L 3.6-5.0 Serum or plasma chloride measurement (moles/volume) 104 mmol/L 98-107 Carbon dioxide 28 mmol/L 21-32 Serum or plasma anion gap determination (moles/volume) 12 mmol/L 5-14 Serum or plasma urea nitrogen measurement (mass/volume ) 22 mg/dL 7-18 Serum or plasma creatinine measurement (mass/volume) 1.09 mg/dL 0.60-1.30 Serum or plasma urea nitrogen/creatinine mass ratio 20 NRG Serum or plasma creatinine measurement w ith calculation of estimated glomerular filtration rate 51 NRG Serum or plasma glucose measurement (mass/volume) 141 mg/dL 70-105 Serum or plasma calcium measurement (mass/volume) 9.9 mg/dL 8.5-10.1 Complete urinalysis with reflex to cultu re - 07/21/16 20:03 Urine color determination YELLOW NRG Urine clarity determination SLIGHTLY CLOUDY NRG Urine pH measurement by test strip 6 5-9 Specific gravity of urine by test strip 1.010 1.016-1.022 Urine protein assay by test strip, semi-quantitative NEGATIVE NEGATIVE Urine glucose detection by automated test strip NE GATIVE NEGATIVE Erythrocytes detection in urine sediment by light micr oscopy NEGATIVE NEGATIVE Urine ketones detection by automated test strip NE GATIVE NEGATIVE Urine nitrite detection by test strip NEGATIVE NEGATIVE Urine total bilirubin detection by test strip NEGA TIVE NEGATIVE Urine urobilinogen measurement by automated test strip (mass/volume) NORMAL NORMAL Urine leukocyte esterase detection by dipstick 1+ NEGATIVE Automated urine sediment erythrocyte cou nt by microscopy (number/high power field) [HPF] NRG Automated urine sediment leukocyte count by microscopy (number/high power field) NONE NRG Bacteria detection in urine sediment by light microsco py NEGATIVE NRG Squamous epithelial cells detection in u rine sediment by light microscopy 2-5 NRG Crystals detection in urine sediment by light microsco py NONE NRG Casts detection in urine sediment by light microscopy NONE NRG Mucus detection in urine sediment by light microscopy NEGATIVE NRG Complete urinalysis with reflex to culture NO NRG Comp. Metabolic Panel (14) - 10/03/16 13 :39 Glucose, Serum 99 mg/dL 65-99 BUN 19 [...] IU/L 0-32 Complete blood count (CBC) with automate d white blood cell (WBC) differential - 10/14/16 15:16 Blood leukocytes automated count (number/volume) 13.7 10*3/uL 4.3-11.0 Blood erythrocytes automated count (number/volume) 4.71 10*6/uL 4.35-5.85 Venous blood hemoglobin measurement (mass/volume) 12.9 g/dL 11.5-16.0 Blood hematocrit (volume fraction) 38 % 35-52 Automated erythrocyte mean corpuscular volume 81 [ foz_us] 80-99 Automated erythrocyte mean corpuscular h emoglobin (mass per erythrocyte) 27 pg 25-34 Automated erythrocyte mean corpuscular h emoglobin concentration measurement (mass/volume) 34 g/dL 32-36 Automated erythrocyte distribution width ratio 16. 3 % 10.0- 14.5 Automated blood platelet count [...] 10*3 1.0-4.0 Blood monocytes automated count (number/volume) 0. 9 10*3 0.0-1.0 Automated eosinophil count 0.4 10*3/uL 0 .0-0.3 Automated blood basophil count (count/volume) 0.1 10*3/uL 0.0-0.1 Comprehensive metabolic panel - 10/14/16 15:16 Serum or plasma sodium measurement (moles/volume) 140 mmol/L 135-145 Serum or plasma potassium measurement (moles/volume) 3.4 mmol/L 3.6-5.0 Serum or plasma chloride measurement (moles/volume) 102 mmol/L 98-107 Carbon dioxide 26 mmol/L 21-32 Serum or plasma anion gap determination (moles/volume) 12 mmol/L 5-14 Serum or plasma urea nitrogen measurement (mass/volume ) 15 mg/dL 7-18 Serum or plasma creatinine measurement (mass/volume) 0.87 mg/dL 0.60-1.30 Serum or plasma urea nitrogen/creatinine mass ratio 17 NRG Serum or plasma creatinine measurement w ith calculation of estimated glomerular filtration rate > NRG Serum or plasma glucose measurement (mass/volume) 112 mg/dL 70-105 Serum or plasma calcium measurement (mass/volume) 10.6 mg/dL 8.5-10.1 Serum or plasma total bilirubin measurement (mass/volu me) 0.8 mg/dL 0.1-1.0 Serum or plasma alkaline phosphatase bryn surement (enzymatic activity/volume) 39 U/L 40-136 Serum or plasma aspartate aminotransfera se measurement (enzymatic activity/volume) 15 U/L 5-34 Serum or plasma alanine aminotransferase measurement (enzymatic activity/volume) 12 U/L 0-55 Serum or plasma protein measurement (mass/volume) 7.1 g/dL 6.4-8.2 Serum or plasma albumin measurement (mass/volume) 3.9 g/dL 3.2-4.5 Magnesium - 10/14/16 15:16 Magnesium 1.5 mg/dL 1.8-2.4 Comp. Metabolic Panel (14) - 11/14/16 14 :33 Glucose, Serum 95 mg/dL 65-99 BUN 15 [...] 15-65 Comp. Metabolic Panel (14) - 03/06/17 11 :01 Glucose, Serum 102 mg/dL 65-99 BUN 15 [...] 5-14 Serum or plasma urea nitrogen measurement (mass/volume ) 15 mg/dL 7-18 Serum or plasma creatinine measurement (mass/volume) 0.80 mg/dL 0.60-1.30 Serum or plasma urea nitrogen/creatinine mass ratio 19 NRG Serum or plasma creatinine measurement w ith calculation of estimated glomerular filtration rate > NRG Serum or plasma glucose measurement (mass/volume) 97 mg/dL 70-105 Serum or plasma calcium measurement (mass/volume) 10.6 mg/dL 8.5-10.1 Serum or plasma total bilirubin measurement (mass/volu me) 0.6 mg/dL 0.1-1.0 Serum or plasma alkaline phosphatase bryn surement (enzymatic activity/volume) 36 U/L 40-136 Serum or plasma aspartate aminotransfera se measurement (enzymatic activity/volume) 20 U/L 5-34 Serum [...] Serum or plasma cholesterol in HDL measurement (mass/v olume) 53 mg/dL 40-60 Cholesterol in LDL [mass/volume] in serum or plasma by direct assay 166 mg/dL 1-129 Serum or plasma cholesterol in VLDL measurement (mass/ volume) 33 mg/dL 5-40 SU[employer]PATH PAP AND HPV mRNA E6/E7 - 10:43 CLINICAL INFORMATION: NR LMP: 50 NRG PREV. PAP: NRG PREV. 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 HPV mRNA E6/E7, [employer]PATH VIAL Not Detected NOT DETECTED COMMENT NRG CULTURE, GENITAL - 11/19/17 10:43 CULTURE, GENITAL SEE NOTE NRG Complete blood count (CBC) with automate d white blood cell (WBC) differential - 04/05/18 21:25 Blood leukocytes automated count (number/volume) 7.8 10*3/uL 4.3-11.0 Blood erythrocytes automated count (number/volume) 4.68 10*6/uL 4.35-5.85 Venous blood hemoglobin measurement (mass/volume) 12.2 g/dL 11.5-16.0 Blood hematocrit (volume fraction) 36 % 35-52 Automated erythrocyte mean corpuscular volume 78 [ foz_us] 80-99 Automated erythrocyte mean corpuscular h emoglobin (mass per erythrocyte) 26 pg 25-34 Automated erythrocyte mean corpuscular h emoglobin concentration measurement (mass/volume) 34 g/dL 32-36 Automated erythrocyte distribution width ratio 15. 8 % 10.0- 14.5 Automated blood platelet count [...] 10*3 1.0-4.0 Blood monocytes automated count (number/volume) 0. 7 10*3 0.0-1.0 Automated eosinophil count 0.3 10*3/uL 0 .0-0.3 Automated blood basophil count (count/volume) 0.1 10*3/uL 0.0-0.1 Whole blood basic metabolic panel - 03/14 08/28 21:25 Serum or plasma sodium measurement (moles/volume) 141 mmol/L 135-145 Serum or plasma potassium measurement (moles/volume) 3.5 mmol/L 3.6-5.0 Serum or plasma chloride measurement (moles/volume) 105 mmol/L 98-107 Carbon dioxide 25 mmol/L 21-32 Serum or plasma anion gap determination (moles/volume) 11 mmol/L 5-14 Serum or plasma urea nitrogen measurement (mass/volume ) 19 mg/dL 7-18 Serum or plasma creatinine measurement (mass/volume) 0.76 mg/dL 0.60-1.30 Serum or plasma urea nitrogen/creatinine mass ratio 25 NRG Serum or plasma creatinine measurement w ith calculation of estimated glomerular filtration rate > NRG Serum or plasma glucose measurement (mass/volume) 137 mg/dL 70-105 Serum or plasma calcium measurement (mass/volume) 9.8 mg/dL 8.5-10.1 Complete urinalysis with reflex to cultu re - 04/05/18 21:38 Urine color determination YELLOW NRG Urine clarity determination CLEAR NR G Urine pH measurement by test strip 7 5-9 Specific gravity of urine by test strip 1.005 1.016-1.022 Urine protein assay by test strip, semi-quantitative NEGATIVE NEGATIVE Urine glucose detection by automated test strip NE GATIVE NEGATIVE Erythrocytes detection in urine sediment by light micr oscopy NEGATIVE NEGATIVE Urine ketones detection by automated test strip NE GATIVE NEGATIVE Urine nitrite detection by test strip NEGATIVE NEGATIVE Urine total bilirubin detection by test strip NEGA TIVE NEGATIVE Urine urobilinogen measurement by automated test strip (mass/volume) NORMAL NORMAL Urine leukocyte esterase detection by dipstick NEG ATIVE NEGATIVE Automated urine sediment erythrocyte cou nt by microscopy (number/high power field) NONE NRG Automated urine sediment leukocyte count by microscopy (number/high power field) NONE NRG Bacteria detection in urine sediment by light microsco py NEGATIVE NRG Crystals detection in urine sediment by light microsco py NONE NRG Casts detection in urine sediment [...] <5.0 NON HDL CHOLESTEROL 131 mg/dL (calc) <13 0 CMP - 09/26/18 10:03 GLUCOSE 190 mg/dL 65-99 UREA NITROGEN (BUN) 15 mg/dL 7-25 CREATININE 0.68 mg/dL 0.50-0.99 eGFR NON-AFR. TAJIK 92 mL/min/1.73m2 > OR = 60 eGFR 106 mL/min/1.73m2 > OR = 60 BUN/CREATININE RATIO NOT APPLICABLE (calc) 6-22 SODIUM 142 mmol/L 135-146 POTASSIUM 4.0 mmol/L 3.5-5.3 CHLORIDE 105 mmol/L 98-110 CARBON DIOXIDE 29 mmol/L 20-32 CALCIUM 9.8 mg/dL 8.6-10.4 PROTEIN, TOTAL 6.8 g/dL 6.1-8.1 ALBUMIN 4.3 g/dL 3.6-5.1 GLOBULIN 2.5 g/dL (calc) 1.9-3.7 ALBUMIN/GLOBULIN RATIO 1.7 (calc) 1.0-2. 5 BILIRUBIN, TOTAL 0.8 mg/dL 0.2-1.2 ALKALINE PHOSPHATASE 50 U/L 33-130 AST 12 U/L 10-35 ALT 8 U/L 6-29 TSH - 09/26/18 10:03 TSH 0.72 mIU/L 0.40-4.50 Methicillin resistant Staphylococcus aur eus (MRSA) screening culture - 10/03/18 12:20 MRSA SCREEN RESULT MRSA ISOLATED NR Capillary blood glucose measurement by g lucometer (mass/volume) - 10/08/18 07:16 Capillary blood glucose measurement by glucometer (mas s/volume) 108 mg/dL 70-110 Thyroid Stimulating Hormone - 11/29/18 1 5:32 TSH 0.63 mIU/mL 0.32-5.00 Comprehensive Metabolic Panel - 04/26/19 19:32 Albumin 3.9 g/dL 3.6-5.1 ALP 60 U/L 35-130 ALT 9 U/L 6-45 Anion Gap 13 6-14 AST 13 U/L 2-40 BUN 12 mg/dL 5-25 Calcium 9.3 mg/dL 8.3-10.4 Chloride 108 mmol/L 95-114 CO2 27 mEq/L 22-33 Creat 0.78 mg/dL 0.50-1.50 eGFR 74 mL/min/1.73m2 >59 Globulin 2.7 g/dL 2.3-3.5 Glucose 115 mg/dL 70-110 Osmo 298 280-295 Potassium 3.9 mmol/L 3.5-5.3 Sodium 144 mmol/L 134-148 TBil 0.7 mg/dL 0.2-1.2 TP 6.6 g/dL 6.0-8.3 MAGNESIUM SERUM - 07/08/19 13:42 MAGNESIUM 1.9 mg/dL 1.5-2.5 Comprehensive metabolic panel - 06/23/20 10:42 Serum or plasma sodium measurement (moles/volume) 142 mmol/L 135-145 Serum or plasma potassium measurement (moles/volume) 3.8 mmol/L 3.6-5.0 Serum or plasma chloride measurement (moles/volume) 106 mmol/L 98-107 Carbon dioxide 27 mmol/L 21-32 Serum or plasma anion gap determination (moles/volume) 9 mmol/L 5-14 Serum or plasma urea nitrogen measurement (mass/volume ) 12 mg/dL 7-18 Serum or plasma creatinine measurement (mass/volume) 0.79 mg/dL 0.60-1.30 Serum or plasma urea nitrogen/creatinine mass ratio 15 NRG Serum or plasma creatinine measurement w ith calculation of estimated glomerular filtration rate > NRG Serum or plasma glucose measurement (mass/volume) 99 mg/dL 70-105 Serum or plasma calcium measurement (mass/volume) 9.9 mg/dL 8.5-10.1 Serum or plasma total bilirubin measurement (mass/volu me) 0.9 mg/dL 0.1-1.0 Serum or plasma alkaline phosphatase bryn surement (enzymatic activity/volume) 65 U/L 40-136 Serum or plasma aspartate aminotransfera se measurement (enzymatic activity/volume) 18 U/L 5-34 Serum or plasma alanine aminotransferase measurement (enzymatic activity/volume) 10 U/L 0-55 Serum or plasma protein measurement (mass/volume) 7.7 g/dL 6.4-8.2 Serum or plasma albumin measurement (mass/volume) 4.5 g/dL 3.2-4.5 CALCIUM CORRECTED 9.5 mg/dL 8.5-10.1 Lipid 1996 panel - 11/03/19 10:42 Serum or plasma triglyceride measurement (mass/volume) 325 mg/dL <150 Serum or plasma cholesterol measurement (mass/volume) 168 mg/dL < 200 Serum or plasma cholesterol in HDL measurement (mass/v olume) 38 mg/dL 40-60 Cholesterol in LDL [mass/volume] in serum or plasma by direct assay 88 mg/dL 1-129 Serum or plasma cholesterol in VLDL measurement (mass/ volume) 65 mg/dL 5-40 Encounters ACCT No. Visit Date/Time Discharge Status Pt. Type Provider Facility Loc./Unit Complaint [id number] 07/18/2016 08:46:00 Document Registration [id number] 03/07/2017 08:07:00 Document Registration [id number] 02/07/2015 13:17:30 ACT Document Registration [id number] 11/18/2019 10:00:00 23:59:59 CLS Preadmit BOBBI LEWIS MD [facility] CATH ABN STRESS TEST [id number] 11/16/2019 07:01:00 23:59:59 CLS Outpatient BOBBI LEWIS MD [facility] LABNPT [id number] 11/04/2019 10:29:00 23:59:59 CLS Outpatient BOBBI LEWIS MD [facility] CARD HYPERLIPIDEMIA,HYPERTENSION,DIABETES MELLITUS [id number] 11/03/2019 10:32:00 23:59:59 CLS Outpatient BOBBI LEWIS MD [facility] CARD HYPERLIPIDEMIA,HYPERTENSION,DIABETES MELLITUS [id number] 10/14/2018 10:41:00 23:59:59 CLS Outpatient NIMO MCGUIRE [facility] RAD CAD, CHEST PAIN [id number] 10/08/2018 06:38:00 14:00:00 DIS Outpatient FLORECITA BROWN DO [facility] SDC MASS RIGHT BACK, MALFUN CTIONING LINQ [id number] 10/03/2018 11:53:00 12:27:00 DIS Outpatient FLORECITA BROWN DO [facility] PREOP MASS RIGHT BACK, MALFUN CTIONING LINQ [id number] 04/12/2018 10:51:00 12:37:00 DIS Outpatient SHAHEEN JIMÉNEZ a [facility] ER FALL LAST NIGHT/PAIN AL L OVER [id number] 04/05/2018 19:49:00 22:03:00 DIS Emergency ABEBA OBRIEN APRN [facility] ER WEAKNESS,LETHARGY [id number] 03/17/2018 14:31:00 11/05/2 018 23:59:59 CLS Outpatient JASIEL KENDRICK SUPERVISOR [employer] [facility] RAD SCREENING [id number] 11/28/2017 09:10:00 018 23:59:59 CLS Outpatient JASIEL KENDRICK SUPERVISOR [employer] [facility] RAD SCREENING FOR OSTEOPORO SIS [id number] 07/25/2017 23:36:00 018 00:06:00 DIS Emergency BING LAM MD [facility] ER LEFT LEG RASH,R T LEG THROBBING [id number] 04/18/2017 06:44:00 017 23:59:59 CLS Outpatient MADL, SAKSHI L COMMUNITY PRODUCT SPECIALIST [facility] RAD I77.9 BILATERAL CAROTID ARTERY DISEASE [id number] 04/18/2017 06:44:00 017 23:59:59 CLS Outpatient JOSHUA ROJO, BOBBI Olivera [facility] LAB I25.10,R07.89,E78.2,I10 ,R60.0 [id number] 03/11/2017 13:55:00 017 23:59:59 CLS Outpatient MADL, SAKSHI L COMMUN[employer] PRODUCT SPECIALIST [facility] RAD Z12.31 SCREENING BREAST EXAM [id number] 10/30/2016 10:06:00 017 23:59:59 CLS Outpatient MADL, SAKSHI L COMMUNITY PRODUCT SPECIALIST [facility] RAD DIZZINESS R42 [id number] 10/14/2016 14:40:00 017 16:11:00 DIS Emergency TANJA SANDOVAL MD [facility] ER BILAT HAND NUMBNESS/LEG WEAKNESS [id number] 08/28/2016 15:53:00 017 23:59:59 CLS Outpatient MADL, SAKSHI L COMMUNITY PRODUCT SPECIALIST [facility] RAD M47.22 [id number] 07/21/2016 18:14:00 017 20:46:00 DIS Emergency ABEBA OBRIEN SUPERVISOR [employer]ICATION [facility] ER BACK AND LEG PAIN [id number] 07/21/2016 15:27:00 017 17:06:00 DIS Emergency AZALIA ROJO, MEKHI Batista [facility] ER HAND NUMBNESS, LOWER BACK PAIN [id number] 06/27/2016 08:10:00 17:43:00 DIS Outpatient JOSHUA ROJO, BOBBI Olivera [facility] CATH CP,DYSPNEA,CAD [id number] 06/16/2016 12:06:00 23:59:59 CLS Outpatient NIMO MCGUIRE [facility] LAB HYPERLIPIDE LOLITA, MIXED [id number] 05/02/2016 14:34:00 19:30:00 DIS Emergency DOLORES CRUZ [facility] ER RASH [id number] 04/05/2016 18:02:00 016 19:09:00 DIS Emergency DOLORES CRUZ [facility] ER RASH L LEG [id number] 03/07/2016 18:07:00 19:52:00 DIS Emergency GENARO ROJO, BING Cabrera [facility] ER "NOT FEELING WE LL";DIARRHEA [id number] 02/08/2016 11:05:00 016 23:59:59 CLS Outpatient NIMO MCGUIRE [facility] CARD CAD,CHEST P AIN,HTN,HLP [id number] 02/04/2016 20:17:00 016 21:01:00 DIS Emergency PEDRO BORREGO DO [facility] ER BODY RASH, ITCHING [id number] 01/24/2016 08:47:00 23:59:59 CLS Outpatient NIMO MCGUIRE [facility] CARD CAD,CHEST P AIN,HLP,HTN [id number] 01/19/2016 09:40:00 23:59:59 CLS Outpatient DANIELLA GONZALEZ DO [facility] RAD SCREENING [id number] 12/26/2015 12:10:00 23:59:59 CLS Outpatient NIMO MCGUIRE [facility] LAB ATHEROSCLER OTIC HEART DISEASE [id number] 12/26/2015 12:04:00 23:59:59 CLS Outpatient DANIELLA GONZALEZ DO Suzette [facility] LAB HYPOTHYROID [id number] 11/30/2015 09:28:00 23:59:59 CLS Outpatient DANIELLA GONZALEZ DO [facility] LAB HYPERLIPIDEMIA, HYPERTHYROID [id number] 11/19/2015 14:31:00 15:24:00 DIS Emergency DOLORES CRUZ [facility] ER L LEG RASH [id number] 10/07/2015 22:08:00 23:31:00 DIS Emergency TANJA SANDOVAL MD [facility] ER CHEST HURTING;HEADACHE; NAUSEA [id number] 10/06/2015 08:41:00 23:59:59 CLS Outpatient BOBBI LEWIS MD [facility] LAB CAD,CHEST PAIN,DYSPNEA,HTN,HYPERLIPIDEMIA [id number] 06/23/2015 07:34:00 23:59:59 CLS Outpatient LISA MALDONADODANIELLA [facility] LAB SOB,HTN [id number] 06/03/2015 00:04:00 01:01:00 DIS Emergency KORIN STRATTON DO [facility] ER LEFT INDEX FINGER LAC [id number] 04/05/2015 19:16:00 20:35:00 DIS Emergency PEDRO BORREGO DO [facility] ER LEFT FOOT PAIN [id number] 02/07/2015 13:14:00 23:59:59 CLS Outpatient DANIELLA GONZALEZ DO [facility] LAB SYNCOPE,DIABETE S [id number] 02/04/2015 22:59:00 015 01:27:00 DIS Emergency GENARO ROJO, BING Cabrera [facility] ER RIGHT HAND INJU RY [id number] 01/03/2015 07:20:00 015 23:59:59 CLS Outpatient NIMO MCGUIRE [facility] CARD BRADYCARDIA ,CAD,HLP [id number] 12/20/2014 15:27:00 015 23:59:59 CLS Outpatient LISA MALDONADO DANIELLA Suzette [facility] RAD SCREENING [id number] 12/02/2014 14:57:00 23:59:59 CLS Outpatient DANIELLA GONZALEZ DO [facility] LAB HYPOTHYROID,KAILYN BETES [id number] 12/02/2014 07:37:00 23:59:59 CLS Outpatient NIMO MCGUIRE [facility] CARD CAD,HLP,BRA DYCARDIA [id number] 11/14/2014 23:50:00 015 01:28:00 DIS Emergency AZALIA ROJO, MEKHI Batista [facility] ER VOMITING [id number] 10/06/2014 10:59:00 13:14:00 DIS Emergency PEDRO BORREGO DO Vi a [facility] ER LEFT SIDE BURNING [id number] 09/11/2014 16:02:00 015 18:02:00 DIS Emergency ABEBA OBRIEN APRN [facility] ER RASH [id number] 09/08/2014 12:42:00 14:26:00 DIS Emergency DOLORES CRUZ [facility] ER RASH [id number] 08/27/2014 11:02:00 015 12:10:00 DIS Emergency ABEBA OBRIEN APRN [facility] ER LEFT FLANK PAIN [id number] 08/15/2014 12:37:00 13:53:00 DIS Emergency ABEBA OBRIEN APRN [facility] ER RASH [id number] 08/14/2014 21:09:00 22:36:00 DIS Emergency PEDRO BORREGO DO Fabi a [facility] ER RASH ALL OVER BODY [id number] 04/21/2014 12:06:00 23:59:59 CLS Outpatient JOSHUA ROJO, BOBBI Olivera [facility] CATH BRADYCARDIA,NEAR SYNCOP E [id number] 04/16/2014 21:22:00 00:57:00 DIS Emergency GENARO ROJO, BING Cabrera [facility] ER FALL [id number] 01/08/2014 09:31:00 12:55:00 DIS Emergency GENARO ROJO, BING Cabrera [facility] ER DIZZINESS/LIP N UMBNESS [id number] 12/17/2013 09:49:00 23:59:59 CLS Outpatient DANIELLA GONZALEZ DO [facility] RAD SCREENING [id number] 12/01/2013 21:45:00 10:15:00 DIS Inpatient DANIELLA GONZALEZ DO [facility] 4TH VERTIGO,HYPOTENSION,DIARRHEA [id number] 11/15/2013 15:02:00 014 23:59:59 CLS Outpatient DANIELLA GONZALEZ DO [facility] LAB DIABETES [id number] 11/15/2013 15:19:00 014 16:32:00 DIS Emergency ABEBA OBRIEN APRN [facility] ER VOMITING [id number] 10/29/2013 20:59:00 22:45:00 DIS Emergency KORIN STRATTON DO [facility] ER DIZZINESS [id number] 10/14/2013 08:22:00 23:59:59 CLS Outpatient YEN SHAH, NIMO Mensah [facility] CARD BRADYCARDY, CAD,DM,HLP [id number] 09/08/2013 21:47:00 17:40:00 DIS Inpatient DANIELLA GONZALEZ DO [facility] 4TH TIA/CHEST PAIN [id number] 08/30/2013 09:29:00 23:59:59 CLS Outpatient NIMO MCGUIRE [facility] LAB HYPERLIPIDE LOLITA [id number] 04/01/2013 11:06:00 17:50:00 DIS Inpatient RENATO MACE MD Via [facility] ICU LEFT CAROTID STENOSIS [id number] 03/30/2013 09:41:00 23:59:59 CLS Outpatient RENATO MACE MD [facility] PREOP LEFT CAROTID STENOSIS [id number] 03/09/2013 06:42:00 13:00:00 DIS Outpatient BOBBI LEWIS MD [facility] CATH ABNORMAL STRESS, CP CAD ,HTN,HLP [id number] 03/04/2013 10:21:00 23:59:59 CLS Outpatient BOBBI LEWIS MD [facility] CARD CP,CAD,HLP,HTN [id number] 03/03/2013 13:05:00 23:59:59 CLS Outpatient BOBBI LEWIS MD [facility] LAB CP,DIABETES,CAD,HYPERLI PIDEMIA [id number] 02/22/2013 17:30:00 21:50:00 DIS Emergency ELMO DOPEDRO [facility] ER VOMITTING,BLACK OUTS [id number] 12/17/2012 23:49:00 01:31:00 [facility] LFT SHOULDER PAIN [id number] 11/27/2012 14:29:00 23:59:59 CLS Outpatient DANIELLA GONZALEZ DO [facility] RAD SCREENING [id number] 10/04/2012 16:01:00 013 20:56:00 DIS Aquiles VIEYRA MD, MEKHI Batista [facility] ER BOTH ARMS ARE N [facility] [id number] 12/23/2019 09:00:00 P MAXIMO LEWIS MD, BOBBI Olivera [facility] CATH ABN STRESS TEST [id number] 03/31/2015 08:23:00 Document Registration [id number] 02/19/2015 22:08:00 Document Registration [id number] 04/17/2014 01:05:00 Document Registration [id number] 10/23/2012 11:00:00 Document Registration [id number] 07/24/2012 10:48:00 Document Registration [id number] 05/19/2012 10:22:00 Document Registration [id number] 03/17/2012 11:55:00 Document Registration [id number] 03/14/2012 08:14:00 Document Registration [id number] 02/29/2012 21:19:00 Document Registration [id number] 02/06/2012 17:56:00 Document Registration [id number] 01/20/2012 20:04:00 Document Registration [id number] 01/14/2012 08:51:00 Document Registration [id number] 11/26/2011 13:08:00 Document Registration [id number] 10/09/2011 08:14:00 Document Registration [id number] 09/28/2011 07:21:00 Document Registration [id number] 06/10/2011 19:01:00 Document Registration [id number] 05/10/2011 19:33:00 Document Registration [id number] 04/09/2011 09:11:00 Document Registration [id number] 12/01/2010 08:10:00 Document Registration [id number] 11/24/2010 17:36:00 Document Registration [id number] 09/09/2010 12:43:00 Document Registration [id number] 07/31/2010 17:30:00 Document Registration [id number] 07/13/2010 10:14:00 Document Registration [id number] 07/10/2010 07:19:00 Document Registration [id number] 06/10/2010 16:55:00 Document Registration [id number] 06/08/2010 08:43:00 Document Registration [id number] 06/07/2010 08:34:00 Document Registration [id number] 05/10/2010 16:53:00 Document Registration [id number] 04/14/2010 21:16:00 Document Registration [id number] 05/15/2016 13:05:00 Document Registration [id number] 09/25/2019 17:02:00 09/25/2019 18:20 :00 DIS Outpatient Jon Taylor [id number] 09/15/2019 09:04:00 09/15/2019 10:30 :00 DIS Outpatient JASIEL KENDRICK [id number] 04/26/2019 19:30:00 04/26/2019 22:15 :00 DIS Outpatient THEODORE CHRIS MORRIS [facility] ER [id number] 11/29/2018 15:19:00 11/29/2018 17:21: 00 DIS Outpatient PAULINA ZAKMOY [place] [facility] [place] [id number] 11/29/2018 15:47:47 Document Registration [id number] 10/04/2016 08:43:00 Document Registration [id number] 06/05/2012 10:54:00 06/05/2012 23:59: 59 CLS Outpatient SALONI QUINN DO [id number] 05/28/2012 09:59:00 05/28/2012 23:59: 59 CLS Outpatient SALONI QUINN DO [id number] 11/15/2016 12:07:00 Document Registration [id number] 10/08/2019 14:20:00 10/08/2019 23:59:5 9 CLS Outpatient JSAIEL KENDRICK [facility] [id number] 07/08/2019 13:00:00 Document Registration [id number] 09/26/2018 09:20:00 Document Registration [id number] 11/19/2017 10:00:00 Document Registration [id number] 03/06/2017 10:20:00 Document Registration
[2019-12-23] MEDS ORDERED: NS IV 1000 ML 1,000 ML ONE (07:01)
[2019-12-23] MEDS ORDERED: HEParin (CATH LAB) 2,000 ML IV ONE (07:01)
[2019-12-23] MEDS ORDERED: LIDOCAINE 1% INJ 20 ML 20 ML VIAL ONE (07:01)
[2019-12-23] MEDS ORDERED: NS IV 1000 ML 1,000 ML IV SCH ×2 (07:15→09:38)
[2019-12-23 07:18] VITALS: BP 216/160
[2019-12-23 07:30] LABS: BILIRUBIN,URINE NEGATIVE (NEGATIVE); CLARITY,URINE CLEAR; COLOR,URINE YELLOW; GLUCOSE, URINE (UA) NEGATIVE (NEGATIVE); HEMOGLOBIN 14.5 G/DL (11.5-16.0); KETONES,URINE NEGATIVE (NEGATIVE); LEUKOCYTE ESTERASE ,URINE NEGATIVE (NEGATIVE); MEAN PLATELET VOLUME 10.7 FL (7.4-10.4); NITRITE,URINE NEGATIVE (NEGATIVE); PROTEIN,URINE NEGATIVE (NEGATIVE); RED CELL DISTRIBUTION WIDTH 18.3 % (10.0-14.5); WHITE BLOOD COUNT 9.2 10^3/uL (4.3-11.0)
[2019-12-23 07:39] LABS: WBC,URINE RARE /HPF
[2019-12-23 07:40] LABS: BACTERIA,URINE NEGATIVE /HPF
[2019-12-23 07:45] LABS: INR 0.9 (0.8-1.4); PROTHROMBIN TIME PATIENT 12.5 SEC (12.2-14.7)
[2019-12-23 07:50] LABS: ALANINE AMINOTRANSFERASE 14 U/L (0-55); ALBUMIN 4.7 GM/DL (3.2-4.5); ALKALINE PHOSPHATASE 64 U/L (40-136); BILIRUBIN,TOTAL 0.5 MG/DL (0.1-1.0); BUN/CREATININE RATIO 24; CALCIUM 10.1 MG/DL (8.5-10.1); CARBON DIOXIDE 28 MMOL/L (21-32); CHLORIDE 104 MMOL/L (98-107); CHOLESTEROL 188 MG/DL (< 200); CREATININE SERUM 0.84 MG/DL (0.60-1.30); GFR ESTIMATED > 60; GLUCOSE 106 MG/DL (70-105); HDL CHOLESTEROL 51 MG/DL (40-60); POTASSIUM 3.9 MMOL/L (3.6-5.0); SODIUM 143 MMOL/L (135-145); TOTAL PROTEIN 8.2 GM/DL (6.4-8.2); TRIGLYCERIDES 233 MG/DL (<150); VLDL CHOLESTEROL 47 MG/DL (5-40)
[2019-12-23] MEDS ORDERED: ROSU20TA32 PO (07:59)
[2019-12-23] MEDS ORDERED: CYAN100015 SL (07:59)
[2019-12-23] MEDS ORDERED: OXYB-52 PO (07:59)
[2019-12-23] MEDS ORDERED: ASPI-983 PO (07:59)
[2019-12-23] MEDS ORDERED: CETI10TA21 PO (07:59)
--- NOTE | 2019-12-23 08:05 | Cardiac Procedure Note-CS/ASA ---
Pre-Procedure Note Pre-Op Procedure Note H&P Reviewed The H&P was reviewed, patient examined and no changes noted. Date H&P Reviewed: Dec 23, 2019 Time H&P Reviewed: 08:04 Conscious Sedation Pre-Proced Time 08:04 ASA Score 3 For ASA 3 and 4: Consider anesthesia and medical clearance. Also, for patients with a history of failed moderate sedation consider anesthesia. Airway Lungs Heart ASA score ASA 1: a normal healthy patient ASA 2: a patient with a mild systemic disease (mid diabetes, controlled hypertension, obesity x ASA 3: a patient with a severe systemic disease that limits activity (angina, COPD, prior Myocardial infarction) ASA 4: a patient with an incapacitating disease that is a constant threat to life (CHF, renal failure) ASA 5: a moribund patient not expected to survive 24 hrs. (ruptured aneurysm) ASA 6: a declared brain- patient whose organs are being harvested. For emergent operations, add the letter E after the classification Mallampati Classification Grade 3 Sedation Plan Analgesia, Amnesia, Plan communicated to team members, Discussed options with patient/fam, Discussed risks with patient/fam The patient is an appropriate candidate to undergo the planned procedure, sedation, and anesthesia. The patient immediately re-assessed prior to indication. BOBBI LEWIS MD Dec 23, 2019 08:05
[2019-12-23] MEDS ORDERED: VERAPAMIL 5 MG/2 ML (CALAN) VIAL IV ONE (08:43)
[2019-12-23] MEDS ORDERED: HEParin 1000 UNIT/ML (10ML VIAL) FOR BOLUS ONE (08:43)
[2019-12-23] MEDS ORDERED: NITRO DRIP 25000 MCG/D5W 250 ML IV ONE (08:43)
[2019-12-23] MEDS ORDERED: fentaNYL INJECTION 100 MCG/2 ML AMP ONE (08:43)
[2019-12-23] MEDS ORDERED: MIDAZOLAM 5 MG/5 ML (VERSED) VIAL ONE (08:43)
--- NOTE | 2019-12-23 08:44 | Diagnostic Imaging Report ---
EXAMINATION: Chest radiograph, portable AP view. DATE: 12/23/2019 7:39 AM hours. INDICATION: 64-year-old female, precatheterization. COMPARISON: June 27, 2016. FINDINGS: Stable overall appearance of the cardiomediastinal silhouette. There is no identified pneumothorax. There is no large pleural effusion. There are very mild linear opacities in left mid to lower lung as well as on the right mid to lower lung which most likely reflect mild subsegmental atelectasis. There is no otherwise noted focal airspace consolidation. IMPRESSION: No identified acute cardiopulmonary abnormality. Dictated by: Dictated on workstation # [id number]
--- NOTE | 2019-12-23 09:41 | Discharge Inst-Post CATH ---
Discharge Inst-CATH/EP Problems Reviewed?: Yes Post Cardiac Cath/EP D/C Inst Follow Up/Plan Appointment with Dr. Strange's office in 4 weeks <b>CARDIAC CATH/EP PROCEDURE DISCHARGE INSTRUCTIONS</b> ACTIVITY * Go Home directly and rest. * Limit activity of the leg (or wrist if it was used) for 7 days including aerobics, swimming, jogging, bicycling, etc. * Restrict stair-climbing for 7 days if possible, if not, climb up with your non-cath leg, then bring together on the same step. * Avoid lifting, pushing, pulling or excessive movement of the affected e xtremity for 7 days. * Customary sexual activity may be resumed after 2 days-use caution not to use a position that strains or causes pain to the affected extremity. * No driving for 24 hours. * NO SMOKING. * Avoid straining for bowel movements for 7 days. * Gentle walking on level ground is allowed. * Returning to work will depend on the type of procedure and the results. Your doctor will discuss this with you. CALL YOUR DOCTOR FOR ANY OF THE FOLLOWING: *If bleeding from the puncture site occurs- Apply gentle pressure to site with clean cloth and call your doctor or EMS. * If a knot or lump forms under the skin, increases in size, or causes pain. * If bruising appears to be worsening or moving further down your leg instead of disappearing. * Temperature above 101 F. CARE OF YOUR GROIN INCISION; * Bruising or purple discoloration of the skin near the puncture site is common. * You may shower only, no bathtub bathing for 5 days. Be careful to avoid slipping as your leg may feel stiff. * If a closure device was used on your femoral artery, please see the attached guide regarding care of the device and your leg. * Leave dressing on FOR 24 hours. CARE OF YOUR WRIST INCISION; * Bruising or purple discoloration of the skin near the puncture site is common. * You may shower. * DO NOT submerge wrist. * Leave dressing on FOR 24 hours. BOBBI STRANGE MD Dec 23, 2019 9:41 am
--- NOTE | 2019-12-23 09:46 | Cardiac Cath Report ---
Cardiac Cath Report Physician (s)/Registered Dietitian (s) Physician BOBBI LEWIS MD Pre-Procedure Diagnosis Pre-Procedure Diagnosis: chest pain, coronary artery disease Post-Procedure Note Procedure Start Date: Dec 23, 2019 Name of Procedure: Left heart catheterization Findings/Procedure Note PROCEDURE NOTE: 64-year-old lady with history of coronary artery disease, stent to the circumflex artery in the past, had an abnormal stress test, has been having ches t pain, scheduled for cardiac catheterization possible PTCA. After explaining the procedure to the patient, all pros and cons were explained, all questions were answered. The patient signed the consent and then she was placed on the cardiac catheterization laboratory. Groin was prepped SL fashion local anesthesia was used. Sheath placed in the right radial artery, Gill catheter was use advanced to the left ventricular cavity, pressure was measured, pullback LV to aorta was done, advanced the catheter to the right coronary artery and angiogram was done then turned to the left carotid system and angiogram was done. At the end of the procedure the sheath was removed. Vascular band was used FINDINGS: Hemodynamics LV 97/20, end-diastolic pressure 20, probably overestimated due to frequent PVCs and ventricular arrhythmia Aorta 127/61 mean of 67 ANATOMY: Left Main is free of obstructive disease Left Anterior Descending has mild disease with mild tortuosity nonobstructive disease Left Circumflex has mild disease proximally, patent stent, moderate disease distally nonobstructive disease Right Coronory Artery is dominant artery with no obstructive disease LV Gram was not done, pressure was measured CONCLUSION: 1. It and stent in the circumflex artery otherwise mild to moderate coronary artery disease nonobstructive disease 2. No significant gradient during pullback from LV to aorta DISCUSSION AND RECOMMENDATION: Continue with medical therapy, encourage compliance. Continue to monitor Anesthesia Type: Conscious Sedation Estimated blood loss (mL): 5 ml Contrast Amount: 52 ml Total Radiation Dose: 375 mGy Post-Procedure Diagnosis Post-operative diagnosis: Chest pain Coronary artery disease Hypertension Hyperlipidemia BOBBI LEWIS MD Dec 23, 2019 9:45 am
[2019-12-23 09:55] VITALS: BP 103/66
--- NOTE | 2019-12-23 09:55 | NUR ---
SPOKE WITH THE PT (SHE HAD HER MED BOTTLES) TO COMPLETE THE MED REC THE FOLLOWING ARE FILL DATES FROM [facility]: 08-27-2019 ROPINIROLE 0.5MG #30/PRN 10-04-2019 CLOPIDOGREL 75MG #90/90DS 10-10-2019 ISOSORBIDE MONO ER 60MG #90/90DS 10-10-2019 MECLIZINE 25MG #90 10-20-2019 ROSUVASTATIN 20MG #90/90DS 11-05-2019 LEVOTHYROXINE 75MCG #90/90DS 11-05-2019 POTASSIUM ER 10MEQ #90/90DS 11-05-2019 OXYBUTYNIN ER 5MG #90/90DS 11-24-2019 CETIRIZINE 10MG #90/90DS 12-11-2019 LISINOPRIL 20MG #90/90DS 12-11-2019 METOPROLOL TART 25MG #45/90DS OTC MEDS: ASPIRIN 81 VITAMIN B12
[2019-12-23] MEDS ORDERED: ACETAMINOPHEN 500 MG TAB (TYLENOL) ONE (10:18)
[2019-12-23 10:25] VITALS: BP 136/72
[2019-12-23] MEDS ORDERED: ACETAMINOPHEN 500 MG TAB (TYLENOL) PO ONE (10:30)
[2019-12-23 10:40] VITALS: BP 144/79
[2019-12-23 11:25] VITALS: BP 155/71
[2019-12-23 11:40] VITALS: BP 145/68
--- NOTE | 2019-12-23 12:20 | NUR ---
PRICILLA BARTH demonstrates understanding of discharge instructions and accurately returns instructions upon questioning. Copy of Post-Discharge Instructions and Medication Discharge Instructions given to PATIENT. PRICILLA BARTH is able to manage continuing needs after discharge. Patients belongings returned to PATIENT. Skin dry and intact, RADIAL CATH SITE ASSESSED, WNL. Patient discharged from 509-1 on at 1222. PRICILLA BARTH left floor via , accompanied by THIS RN.
== END 2019-12-23 12:22 | disposition home or self-care (01) ==
LOC: CATH 06:37 → CSD 09:50 → CATH 12:22
PROVIDERS: ATTEND Internal Medicine Cardiovascular Disease
DX: I25.10 Atherosclerotic heart disease of native coronary artery without angina pectoris (principal); R94.39 Abnormal result of other cardiovascular function study; I10 Essential (primary) hypertension; E78.5 Hyperlipidemia, unspecified; E11.9 Type 2 diabetes mellitus without complications; E03.9 Hypothyroidism, unspecified; I65.29 Occlusion and stenosis of unspecified carotid artery; E66.9 Obesity, unspecified; Z68.32 Body mass index [BMI] 32.0-32.9, adult; Z79.82 Long term (current) use of aspirin; Z79.899 Other long term (current) drug therapy; Z88.2 Allergy status to sulfonamides; Z88.8 Allergy status to other drugs, medicaments and biological substances; Z86.73 Personal history of transient ischemic attack (TIA), and cerebral infarction without residual deficits; Z80.9 Family history of malignant neoplasm, unspecified; Z82.3 Family history of stroke
CPT/HCPCS: 71045; 80053; 80061; 81000; 85027; 85610; 85730; 87081; 93458; C1894; 36415

== ENCOUNTER → 2020-11-15 | Outpatient (CLI) | payer MEDICARE ==
[~2020-11-15] MED LIST changes: +ASPI-1238 PO; +CETI10TA49 PO; +CYAN100015 SL; -ISM60TCR PO; +ISOS60TA63 PO; -LISI-552 PO; -LISI10TA2 PO; +LISI10TA25 PO; +LISI20TA26 PO; +OXYB-52 PO
[2020-11-15 15:12] LABS: ALBUMIN 4.4 GM/DL (3.2-4.5); POTASSIUM 3.5 MMOL/L (3.6-5.0)
[2020-11-15 15:13] LABS: CALCIUM 9.7 MG/DL (8.5-10.1)
[2020-11-15 15:15] LABS: TOTAL PROTEIN 7.7 GM/DL (6.4-8.2)
[2020-11-15 15:16] LABS: BILIRUBIN,TOTAL 0.6 MG/DL (0.1-1.0)
[2020-11-15 15:18] LABS: CREATININE SERUM 0.96 MG/DL (0.60-1.30)
== END ==
LOC: CARD 15:00
PROVIDERS: ATTEND Physician Assistant
DX: I11.9 Hypertensive heart disease without heart failure (principal); I25.10 Atherosclerotic heart disease of native coronary artery without angina pectoris; I35.0 Nonrheumatic aortic (valve) stenosis; E78.2 Mixed hyperlipidemia
CPT/HCPCS: 36415; 80053; 80061; 93306

== ENCOUNTER → 2021-08-24 | Outpatient (CLI) | payer MEDICARE ==
[~2021-08-24] MED LIST changes: -FENO134C PO; +FENO134C21 PO; +POTA-164 PO; -POTA10TA14 PO
== END ==
LOC: CARD 14:42
PROVIDERS: ATTEND Physician Assistant
DX: I49.9 Cardiac arrhythmia, unspecified (principal)

== ENCOUNTER → 2022-01-25 | Outpatient (CLI) | payer MEDICARE | LOC: CARD 09:38 | PROVIDERS: ATTEND Internal Medicine Cardiovascular Disease | DX: I10 Essential (primary) hypertension (principal); I25.10 Atherosclerotic heart disease of native coronary artery without angina pectoris | CPT/HCPCS: 93306 ==

== ENCOUNTER → 2022-02-07 | Outpatient (CLI) | payer MEDICARE ==
[~2022-02-07] MED LIST changes: +REGADENOSON 0.4 MG/5 ML SYR (LEXISCAN) IV ONE
[2022-02-07 13:15] VITALS: BP 204/70
--- NOTE | 2022-02-07 15:18 | Cardiology Stress Test Report ---
Stress Test Report Date of Procedure/Referring: Date of Procedure: Feb 07, 2022 PCP Winter España DO Admitting Physician Admitting Physician: Attending Physician: Bobbi Strange MD Indications: CAD Baseline Heart Rate: 59 Baseline Blood Pressure: Blood Pressure Systolic: 204 Blood Pressure Diastolic: 70 Baseline Vitals Vital Signs Date Time Temp Pulse Resp B/P (MAP) Pulse Ox O2 Delivery O2 Flow Rate FiO2 02/07/22 13:15 68 16 204/70 (114) 98 Room Air Baseline EKG: Baseline EKG: NSR Summary After explaining the procedure to the patient, she signed a consent and then brought to the stress nuclear laboratory. Patient received 0.4 mg Lexiscan for stress test, ECG, heart rate and blood pressure were monitored continuously. Resting and stress dose of radio tracer were injected, imaging was acquired and reviewed in short axis, horizontal long axis and vertical long axis views. TID: 1.28 SSS: 8 SDS: 8 EF: 53 1. Patient tolerated Lexiscan well 2. Baseline hypertension persisted during test 3. Reversible ischemia involving the basal to mid anterior wall 4. Transient ischemic dilatation 1.28 5. Normal left ventricular size, EF 53% Copy Copies To 1: [facility] [place] BOBBI STRANGE MD Feb 07, 2022 15:18
== END ==
LOC: CARD 11:26
PROVIDERS: ATTEND Internal Medicine Cardiovascular Disease
DX: I10 Essential (primary) hypertension (principal); I25.10 Atherosclerotic heart disease of native coronary artery without angina pectoris
CPT/HCPCS: 78452; 93017; A9502

== ENCOUNTER 2022-02-28 08:22 | Day surgery (SDC) | payer MEDICARE ==
[2022-02-28] VITALS (10 sets, daily range): BP systolic 114–184; BP diastolic 46–79
[~2022-02-28] VITALS: Ht 170.2 cm; Wt 91.9 kg
[~2022-02-28 08:22] MED LIST changes: -REGADENOSON 0.4 MG/5 ML SYR (LEXISCAN) IV ONE
[2022-02-28] MEDS ORDERED: LIDOCAINE 1% INJ 30 ML (XYLOCAINE) VIAL ONE (08:32)
[2022-02-28] MEDS ORDERED: NS IV 1000 ML 1,000 ML ONE (08:32)
[2022-02-28] MEDS ORDERED: HEParin (CATH LAB) 1,000 ML IV ONE (08:32)
[2022-02-28] MEDS ORDERED: NS IV 1000 ML 1,000 ML IV SCH ×3 (08:45→12:30)
--- NOTE | 2022-02-28 08:59 | Diagnostic Imaging Report ---
Indication: Abnormal stress test. Study performed prior to heart catheterization. Time of Exam: 8:40 AM Correlation is made with prior chest 12/23/2019. The heart is enlarged but stable. There is some elevation of the right hemidiaphragm. There appears to be some bibasilar subsegmental atelectasis. Mid and upper lung jovel are clear. No effusion or pneumothorax is seen. IMPRESSION: Cardiomegaly with bibasilar subsegmental atelectasis. Dictated by: Dictated on workstation # [id number]
[2022-02-28 09:11] LABS: HEMATOCRIT 36 % (35-52); HEMOGLOBIN 11.2 g/dL (11.5-16.0); MEAN CORPUSCULAR HEMOGLOBIN 24 pg (25-34); MEAN CORPUSCULAR HGB CONC 32 g/dL (32-36); MEAN CORPUSCULAR VOLUME 77 fL (80-99); MEAN PLATELET VOLUME 10.7 fL (9.0-12.2); PLATELET COUNT 253 10^3/uL (130-400); WHITE BLOOD COUNT 9.7 10^3/uL (4.3-11.0)
[2022-02-28 09:13] LABS: BILIRUBIN,URINE NEGATIVE (NEGATIVE); CLARITY,URINE CLEAR; COLOR,URINE YELLOW; GLUCOSE, URINE (UA) 3+ (NEGATIVE); KETONES,URINE NEGATIVE (NEGATIVE); LEUKOCYTE ESTERASE ,URINE NEGATIVE (NEGATIVE); NITRITE,URINE NEGATIVE (NEGATIVE); PROTEIN,URINE 2+ (NEGATIVE)
[2022-02-28 09:23] LABS: PROTHROMBIN TIME PATIENT 13.9 SEC (12.2-14.7)
[2022-02-28 09:24] LABS: BACTERIA,URINE NEGATIVE /HPF
[2022-02-28 09:33] LABS: ALBUMIN 4.1 GM/DL (3.2-4.5); BILIRUBIN,TOTAL 0.7 MG/DL (0.1-1.0); CALCIUM 9.5 MG/DL (8.5-10.1); CREATININE SERUM 1.1 MG/DL (0.60-1.30); POTASSIUM 4.2 MMOL/L (3.6-5.0); TOTAL PROTEIN 7.2 GM/DL (6.4-8.2)
[2022-02-28] MEDS ORDERED: MECL-149 PO (09:38)
[2022-02-28] MEDS ORDERED: FLUT9.9S NS (09:38)
[2022-02-28] MEDS ORDERED: HYDR-700 PO (09:38)
[2022-02-28] MEDS ORDERED: LISI40TA9 PO (09:38)
[2022-02-28] MEDS ORDERED: MELA10TA2 PO (09:38)
[2022-02-28] MEDS ORDERED: HYDR-3923 PO (09:38)
[2022-02-28] MEDS ORDERED: ERGO1250 PO (09:38)
[2022-02-28] MEDS ORDERED: HYDR25TA4 PO (09:38)
[2022-02-28] MEDS ORDERED: SERT-414 PO (09:38)
[2022-02-28] MEDS ORDERED: METO50TA15 PO (09:38)
[2022-02-28] MEDS ORDERED: ACET325T38 PO (09:38)
[2022-02-28] MEDS ORDERED: CYAN-41 PO (09:38)
[2022-02-28] MEDS ORDERED: EMPA25TA PO (09:38)
[2022-02-28] MEDS ORDERED: VERAPAMIL 5 MG/2 ML (CALAN) VIAL IV ONE (11:08)
[2022-02-28] MEDS ORDERED: HEParin 1000 UNIT/ML (10ML VIAL) FOR BOLUS ONE (11:09)
[2022-02-28] MEDS ORDERED: fentaNYL INJ 100 MCG/2 ML AMP ONE (11:09)
[2022-02-28] MEDS ORDERED: NITRO DRIP 25000 MCG/D5W 250 ML IV ONE (11:09)
[2022-02-28] MEDS ORDERED: MIDAZOLAM 5 MG/5 ML (VERSED) VIAL ONE (11:09)
--- NOTE | 2022-02-28 11:59 | Cardiac Procedure Note-CS/ASA ---
Pre-Procedure Note Pre-Op Procedure Note Date of Available H&P: Feb 13, 2022 Date H&P Reviewed: Feb 28, 2022 Time H&P Reviewed: 11:59 History & Physical: H&P Reviewed, Patient Examed, No changes noted Pre-Operative Diagnosis: chest pain, coronary artery disease Conscious Sedation Pre-Proced Time 11:59 ASA Score 3 For ASA 3 and 4: Consider anesthesia and medical clearance. Also, for patients with a history of failed moderate sedation consider anesthesia. Airway Lungs Heart ASA score ASA 1: a normal healthy patient ASA 2: a patient with a mild systemic disease (mid diabetes, controlled hypertension, obesity ASA 3: a patient with a severe systemic disease that limits activity (angina, COPD, prior Myocardial infarction) ASA 4: a patient with an incapacitating disease that is a constant threat to life (CHF, renal failure) ASA 5: a moribund patient not expected to survive 24 hrs. (ruptured aneurysm) ASA 6: a declared brain- patient whose organs are being harvested. For emergent operations, add the letter E after the classification Mallampati Classification Grade 3 Sedation Plan Analgesia, Amnesia, Plan communicated to team members, Discussed options with patient/fam, Discussed risks with patient/fam The patient is an appropriate candidate to undergo the planned procedure, sedation, and anesthesia. The patient immediately re-assessed prior to indication. BOBBI LEWIS MD Feb 28, 2022 11:59
[2022-02-28] MEDS ORDERED: ENALAPRILAT 2.5 MG/2 ML (VASOTEC) VIAL IV ONE (12:15)
--- NOTE | 2022-02-28 12:28 | Discharge Inst-Post CATH ---
Discharge Inst-CATH/EP Problems Reviewed?: Yes Post Cardiac Cath/EP D/C Inst Follow Up/Plan Appointment with Dr. Strange's office in 2 to 4 weeks <b>CARDIAC CATH/EP PROCEDURE DISCHARGE INSTRUCTIONS</b> ACTIVITY * Go Home directly and rest. * Limit activity of the leg (or wrist if it was used) for 7 days including aer obics, swimming, jogging, bicycling, etc. * Restrict stair-climbing for 7 days if possible, if not, climb up with your non-cath leg, then bring together on the same step. * Avoid lifting, pushing, pulling or excessive movement of the affected extremi ty for 7 days. * Customary sexual activity may be resumed after 2 days-use caution not to use a position that strains or causes pain to the affected extremity. * No driving for 24 hours. * NO SMOKING. * Avoid straining for bowel movements for 7 days. * Gentle walking on level ground is allowed. * Returning to work will depend on the type of procedure and the results. Your doctor will discuss this with you. CALL YOUR DOCTOR FOR ANY OF THE FOLLOWING: *If bleeding from the puncture site occurs- Apply gentle pressure to site with clean cloth and call your doctor or EMS. * If a knot or lump forms under the skin, increases in size, or causes pain. * If bruising appears to be worsening or moving further down your leg instead of disappearing. * Temperature above 101 F. CARE OF YOUR GROIN INCISION; * Bruising or purple discoloration of the skin near the puncture site is common. * You may shower only, no bathtub bathing for 5 days. Be careful to avoid slipping as your leg may feel stiff. * If a closure device was used on your femoral artery, please see the attached guide regarding care of the device and your leg. * Leave dressing on FOR 24 hours. CARE OF YOUR WRIST INCISION; * Bruising or purple discoloration of the skin near the puncture site is common. * You may shower. * DO NOT submerge wrist. * Leave dressing on FOR 24 hours. BOBBI STRANGE MD Feb 28, 2022 12:28
[2022-02-28] MEDS ORDERED: PATIENT MAY USE OWN MEDS, ALL PO SCH (12:30)
[2022-02-28] MEDS ORDERED: cloNIDine 0.2 MG (CATAPRES) TAB PO ONE (12:30)
--- NOTE | 2022-02-28 12:31 | Cardiac Cath Report ---
Cardiac Cath Report Physician (s)/High Speed Operator (s) Physician BOBBI LEWIS MD Pre-Procedure Diagnosis Pre-Procedure Diagnosis: chest pain, coronary artery disease Post-Procedure Note Procedure Start Date: Feb 28, 2022 Name of Procedure: Left heart catheterization Findings/Procedure Note PROCEDURE NOTE: 66-year-old lady with history of coronary artery disease, hypertension, hyperlipidemia, had an abnormal stress test, scheduled for cardiac catheterizat ion possible PTCA. After explaining the procedure to the patient, all pros and cons were explained, all questions were answered. The patient signed the consent and then she was placed on the cardiac catheterization laboratory. Groin was prepped SL fashion local anesthesia was used. Sheath placed in the right femoral artery. Mckinley right and left catheter were used to access the coronary system. Mckinley right was prolapsed to the left ventricular cavity, pressure was measured, pullback LV to aorta was done. At the end of the procedure the sheath was removed. Closure device was deployed FINDINGS: Hemodynamics LV 183/37, end-diastolic pressure of 37 Aorta 166/62 mean of 95 ANATOMY: Left Main is free of obstructive disease Left Anterior Descending has mild disease, 40% stenosis in the proximal and mid LAD nonobstructive disease Left Circumflex has patent stent with no significant obstructive disease Right Coronary Artery is dominant artery with 40 to 50% stenosis at the mid right coronary artery LV Gram was not done, pressure was measured CONCLUSION: 1. 40% stenosis in the mid LAD, 40 to 50% stenosis in the mid right coronary artery, patent stent in the circumflex artery with mild disease. 2. Severe hypertension with elevated left ventricular end-diastolic pressure, hypertensive heart disease DISCUSSION AND RECOMMENDATION: Continue to maximize medical therapy Anesthesia Type: Conscious Sedation Estimated blood loss (mL): 10 ml Contrast Amount: 30 ml Total Radiation Dose: 312 mGy Post-Procedure Diagnosis Post-operative diagnosis: Chest pain Coronary artery disease Hypertension Hyperlipidemia. BOBBI LEWIS MD Feb 28, 2022 12:31
[2022-02-28] MEDS ORDERED: hydrALAZINE (APESOLINE) 20 MG/ML VIAL IV NR (13:30)
== END 2022-02-28 17:05 ==
LOC: CATH 08:22 → SDC 13:11 → CATH 17:05
PROVIDERS: ATTEND Internal Medicine Cardiovascular Disease
DX: I25.10 Atherosclerotic heart disease of native coronary artery without angina pectoris (principal); I10 Essential (primary) hypertension; Z68.31 Body mass index [BMI] 31.0-31.9, adult; E78.2 Mixed hyperlipidemia; Z86.73 Personal history of transient ischemic attack (TIA), and cerebral infarction without residual deficits; I35.0 Nonrheumatic aortic (valve) stenosis; E11.9 Type 2 diabetes mellitus without complications; I49.5 Sick sinus syndrome; I49.9 Cardiac arrhythmia, unspecified; Z79.899 Other long term (current) drug therapy
CPT/HCPCS: 71045; 80053; 80061; 81000; 85027; 85610; 85730; 87081; 93458; C1760; C1894; 36415

== ENCOUNTER → 2022-04-09 | Outpatient (CLI) | payer MEDICARE ==
[~2022-04-09] MED LIST changes: +ACET325T38 PO; +CYAN-41 PO; +EMPA25TA PO; +ERGO1250 PO; +FLUT9.9S NS; +HYDR-3923 PO; +HYDR-700 PO; +LISI40TA9 PO; +MELA10TA2 PO; +METO50TA15 PO; +SERT-414 PO
--- NOTE | 2022-04-09 12:10 | Diagnostic Imaging Report ---
EXAMINATION: Lumbar spine MRI without contrast from 04/09/2022. TECHNIQUE: Multiplanar, multisequence MRI of the lumbar spine was performed without contrast. INDICATION: Chronic low back pain. COMPARISONS: None. FINDINGS: There is a scoliotic deformity. There is grade 1 anterolisthesis at L4-L5 with grade 1 retrolisthesis at L5-S1 and also at L1-L2. Vertebral body heights appear maintained. Tip of the conus is unremarkable in appearance and location. L1-L2: There is disc desiccation with minimal broad-based bulging disc material. There is bilateral facet and ligamentum flavum hypertrophy. There is no central stenosis. The neural foramina appear patent. L2-L3: There is disc desiccation. There is bilateral facet and ligamentum flavum hypertrophy. There is no significant central stenosis. There is moderate bilateral neural foraminal narrowing. L3-L4: There is intervertebral disc space narrowing and disc desiccation with minimal broad-based bulging disc material. There is bilateral facet and ligamentum flavum hypertrophy. There is moderate central stenosis. There is moderate bilateral neural foraminal narrowing. L4-L5: There is intervertebral disc space narrowing and disc desiccation with a broad-based bulging disc. There is bilateral facet and ligamentum flavum hypertrophy. Findings cause severe central stenosis with narrowing of the lateral recesses bilaterally. There is moderate bilateral neural foraminal stenosis. L5-S1: There is intervertebral disc space narrowing and disc desiccation with minimal broad-based bulging disc material. There is bilateral facet and ligamentum flavum hypertrophy. There is no significant central stenosis. There is mild bilateral neural foraminal narrowing. Mild fatty infiltration and atrophy of the paraspinal musculature noted throughout the lumbar spine including the visualized iliopsoas musculature. No acute abnormality noted within the intra-abdominal structures, as visualized. IMPRESSION: 1. Multilevel degenerative findings as detailed above with most pronounced findings noted at L4-L5 where there is severe central stenosis and narrowing of the lateral recesses bilaterally. Other findings as detailed above. Dictated by: Dictated on workstation # [id number]
== END ==
LOC: RAD 10:15
PROVIDERS: ATTEND Nurse Practitioner
DX: M48.07 Spinal stenosis, lumbosacral region (principal); M47.27 Other spondylosis with radiculopathy, lumbosacral region; M51.16 Intervertebral disc disorders with radiculopathy, lumbar region
CPT/HCPCS: 72148